=== PATIENT | female | born 1950 | race Caucasian/White ===

== ENCOUNTER → 2018-01-18 09:16 | Outpatient (CLI) | payer MEDICARE, SELFPAY ==
[2018-01-18 12:52] LABS: Absolute Lymphocyte Count 2.69 X10^3/ul (0.83-4.51); Absolute Neutrophil Count 3.2 X10^3/uL (2.0-7.7); Basophil# 0.03 X10^3/uL; Basophil% 0.4 % (0-1); Eosinophil# 0.37 X10^3/uL; Eosinophils% 5.3 % (0-5); Hematocrit 42.5 % (37-47); Lymphocyte # 2.69 X10^3/ul (4.0); Lymphocyte % 38.4 % (19-41); Mean Corp Hgb Conc 30.6 g/gl (32-36); Mean Corpuscular Hgb 27.6 pg (27.0-32.0); Mean Corpuscular Volume 90.2 fL (81-99); Mean Platelet Vol. 11.1 fl (6.2-12.0); Monocyte# 0.72 X10^3/uL; Monocyte% 10.3 % (0-10); Neutrophil # 3.19 X10^3/uL (2.7-7.7); Neutrophil % 45.5 % (47-70); Platelet Count 289 K/mm3 (150-450); RBC Distribution Width CV 15.1 % (11.6-14.6); RBC Distribution Width SD 49.9 fl (35.1-43.9); Red Blood Count 4.71 M/mm3 (4.2-5.4)
[2018-01-18 13:02] LABS: POSITIVE COUNT NO; POSITIVE DIFFERENTIAL NO; POSITIVE MORPHOLOGY NO
[2018-01-18 13:09] LABS: Hemoglobin A1c 5.8 % (4.2-6.3)
[2018-01-18 13:17] LABS: Vitamin D,25 Hydroxy 41.1 ng/mL (29.95-100.01)
[2018-01-18 13:26] LABS: ALB/GLOB Ratio 0.9 RATIO (0.9-2.4); AST(SGOT) 25 U/L (15-37); Alanine Aminotransfer ALT/SGPT 29 U/L (13-56); Albumin, Serum 3.6 g/dL (3.2-5.0); Alkaline Phosphatase 109 U/L (45-117); Anion Gap 8 (5-15); BUN 19 mg/dL (7-18); BUN/Creat Ratio 21.8 RATIO (10-20); Calcium,Total 8.9 mg/dL (8.5-10.1); Chloride 105 mmol/L (98-107); Cholesterol 141 mg/dL (200); Creatinine, Serum 0.87 mg/dL (0.55-1.02); EST Glomerular Filtration Rate 68 mL/min (>60); Est Glom Filt Rate - Afr Amer 83 mL/min (>60); Glucose 89 mg/dL (74-106); High Density Lipoprotein 51 mg/dL; Potassium 4.2 mmol/L (3.5-5.1); Protein, Total 7.6 g/dL (6.4-8.2); Sodium Level 140 mmol/L (136-145); Thyroid Stim Hormone (TSH) 1.55 uIU/mL (0.358-3.74); Triglycerides 83 mg/dL; Very Low Density Lipoprotein 17 mg/dL (5-40)
== END ==
PROVIDERS: PCP Internal Medicine Cardiovascular Disease; Visit Provider Family Medicine
DX: I48.91 Unspecified atrial fibrillation (principal); I10 Essential (primary) hypertension; R73.01 Impaired fasting glucose; M85.80 Other specified disorders of bone density and structure, unspecified site; R53.83 Other fatigue
CPT/HCPCS: 36415; 80053; 80061; 82306; 83036; 84443; 85025

== ENCOUNTER → 2018-01-23 09:53 | Outpatient (CLI) | payer MEDICARE, SELFPAY ==
--- NOTE | 2018-01-23 09:55 | HPBI_ITS ---
MAMMOGRAPHY - BILATERAL SCREENING REASON FOR EXAM: Female, 67 years old. Routine annual screening examination. PERTINENT HISTORY: Personal history of breast cancer. Prior right lumpectomy with radiation and chemotherapy. Prior bilateral breast reduction surgery and breast implants. Mother with breast cancer. Grandmother with breast cancer. TECHNIQUE: Digital bilateral breast johnathan (3D mammographic acquisition) in the CC and MLO projections. 2-D mediolateral oblique (MLO) and craniocaudad (CC) views of both breasts were obtained. CAD: Full Field Digital Mammography with Computer Added Detection was performed. COMPARISON: Comparison is made with prior study dated January 20, 2017 and January 20, 2016. FINDINGS: Breast Composition: The breasts are almost entirely fatty. There are no dominant masses or suspicious calcifications. Postsurgical changes are seen in the right breast. Bilateral breast implants are seen. No other significant abnormalities are identified. There has been no significant change since the prior study. HPBI/SCREENING MAMM (CAD), BILAT IMPRESSION: Stable bilateral screening mammogram. Yearly follow-up mammogram recommended. (A) ASSESSMENT CATEGORY: BIRADS Category 2: Benign. A letter regarding these results will be sent to the patient by the facility within 30 days. Approximately 10% of breast cancers are not detected by mammography. A normal mammogram should not delay biopsy of a clinically suspicious abnormality. [id number] Electronically Signed: Jordan Adame MD at 11:19 EDT Tel [phone], Service support ,
== END ==
PROVIDERS: PCP Family Medicine; Visit Provider Nurse Practitioner
DX: Z12.31 Encounter for screening mammogram for malignant neoplasm of breast (principal); C50.911 Malignant neoplasm of unspecified site of right female breast
CPT/HCPCS: 77063; 77067

== ENCOUNTER → 2018-03-23 11:00 | Outpatient (CLI) | payer MEDICARE, SELFPAY ==
--- NOTE | 2018-03-23 11:06 | ECHOD_ITS ---
Reason For Study: Arrhythmia Procedure This was a 2D Doppler, Color Flow transthoracic echocardiogram. Exam performed in department. Left Ventricle Normal LV size. Left ventricular systolic function is normal. The estimated ejection fraction is 60 %. Transmitral diastolic flow velocities suggest mild (stage 1) diastolic dysfunction (reversed pattern). No regional wall motion abnormalities noted. Right Ventricle Normal RV size. Normal systolic function. Atria Normal left atrium. Normal right atrium. Mitral Valve Bileaflet diffuse mitral valve thickening. Mild (1+) eccentric mitral valve insufficiency. Tricuspid Valve Normal tricuspid valve. Mild (1+) tricuspid valve insufficiency. Pulmonary artery systolic pressure is 25 mmHg. Aortic Valve Normal aortic valve. Trisinus/trileaflet aortic valve. Pulmonic Valve Normal pulmonic valve. Great Vessels Normal aortic root. The pulmonary artery is normal size. Normal inferior vena cava. Pericardium/Pleural No pericardial effusion. MMode/2D Measurements & Calculations LVIDd: 4.4 cm IVSd: 0.94 cm Ao root diam: 3.0 cm LVIDs: 2.7 cm LVPWd: 1.1 cm LA dimension: 3.4 cm FS: 39.1 % LAV(MOD-bp): 55.9 ml LA A4 area: 18.9 cm2 RA A4 area: 13.5 cm2 LAV(MOD-bp) Indexed: 28.3 ml/m2 LAV(MOD-sp2): 53.7 ml LAV(MOD-sp4): 54.1 ml Doppler Measurements & Calculations MV E max karsten: 68.0 cm/sec Lat Peak E' Karsten: 8.0 cm/sec Med Peak E' Karsten: 5.2 cm/sec MV A max karsten: 70.7 cm/sec E/E' lat: 8.6 E/E' med: 13.0 MV E/A: 0.96 Ao V2 max: 106.2 cm/sec LV V1 max: 90.6 cm/sec PA V2 max: 89.7 cm/sec Ao max P.5 mmHg LV V1 max P.3 mmHg TR max karsten: 225.2 cm/sec TR max P.3 mmHg Interpretation Summary Normal LV size. Left ventricular systolic function is normal. The estimated ejection fraction is 60 %. Transmitral diastolic flow velocities suggest mild (stage 1) diastolic dysfunction (reversed pattern). Mild (1+) eccentric mitral valve insufficiency. Mild (1+) tricuspid valve insufficiency. Ordering Physician: Adarsh Man Referring Physician: Clive Shepherd Performed By: Rhiannon Levi RDCS
== END ==
PROVIDERS: Family Provider Family Medicine; PCP Family Medicine; Visit Provider Internal Medicine Cardiovascular Disease
DX: I48.0 Paroxysmal atrial fibrillation (principal)
CPT/HCPCS: 93306

== ENCOUNTER → 2018-07-07 10:32 | Outpatient (CLI) | payer MEDICARE, SELFPAY ==
[2018-07-07 12:18] LABS: D-Dimer Quantitative (DVT/PE) 0.57 FEU/ug/m (0.27-0.49)
== END ==
PROVIDERS: Family Provider Family Medicine; PCP Family Medicine; Visit Provider Family Medicine
DX: R06.09 Other forms of dyspnea (principal)
CPT/HCPCS: 36415; 71046; 85379

== ENCOUNTER → 2018-07-11 09:49 | Outpatient (CLI) | payer MEDICARE, SELFPAY ==
[2018-07-11 10:26] LABS: CREATININE FINGERSTICK < 0.6 mg/dL (0.55-1.02); EGFR FINGERSTICK > 60.0000 mL/min (>60)
== END ==
PROVIDERS: Family Provider Family Medicine; PCP Family Medicine; Visit Provider Family Medicine
DX: R06.00 Dyspnea, unspecified (principal); Z85.3 Personal history of malignant neoplasm of breast; Z90.10 Acquired absence of unspecified breast and nipple
CPT/HCPCS: 71275; Q9967

== ENCOUNTER → 2018-07-26 07:41 | Outpatient (CLI) | payer MEDICARE, SELFPAY ==
--- NOTE | 2018-07-26 15:28 | PFTCOMP ---
COMPLETE PULMONARY FUNCTION TEST INTERPRETATION Brief HPI: Patient is a 68 year old female, currently under the care of Dr. Shepherd, who presents to [facility] for complete pulmonary function tests secondary to diagnosis of dyspnea. Respiratory therapist reports good effort and reproducible results. Interpretation: Forced expiration spirometry shows no large airways obstructive ventilatory defect with an FEV1 of 79% predicted. There is no significant bronchodilator response by strict ATS criteria. Spirograms are of good quality and plateau slowly, indicating slowly emptying areas of the lungs. The respiratory flow volume loop shows decreased expiratory flow rates at high lung volumes consistent with small airways obstruction. Lung volumes by body plethysmography show a total lung capacity at the lower limit of normal at 4.01 L, 83% predicted. All other lung volumes are within normal limits. Diffusion capacity by carbon monoxide is decreased at 52% predicted. The airway resistance is normal. No previous pulmonary function tests were available for review. Impression: Lung volumes at the lower limit of normal with significant reduction in DLCO consistent with a possible pulmonary vascular disorder.
== END ==
PROVIDERS: Family Provider Family Medicine; PCP Family Medicine; Visit Provider Family Medicine
DX: R06.09 Other forms of dyspnea (principal)
CPT/HCPCS: 94060; 94726; 94729

== ENCOUNTER → 2018-08-14 12:32 | Outpatient (CLI) | payer MEDICARE, SELFPAY ==
[2018-08-14 12:55] VITALS: PULSE 100; PULSE 102; PULSE 103; PULSE 104; PULSE 74; PULSE 79; O2SAT 94; O2SAT 95; O2SAT 96; O2SAT 97; O2SAT 98
--- NOTE | 2018-08-15 11:26 | PCM.PSN.6M ---
PSN 6 Minute Walk Test - 6 Minute Walk Test 6 Minute Walk Test: 6 Minute Walk Test PSN:6-Minute Walk Test Start: 08/14/18 12:55 Freq: Status: Active Protocol: RESP.6MINW Document 08/14/18 12:55 KENDALL (Rec: 08/14/18 12:58 KENDALL [id number]) 6 Minute Walk Test Date Performed 08/14/18 Time Performed 12:30 Height 5 ft 4 in Weight: 202 lb Weight in Pounds 202.[address]: Jerry Ponce Assistive device used: None Pre-test Oxygen Delivery Method Room Air Pulse Ox (%) 97 Pulse Rate (60-100 beats/min) 74 Dyspnea Andrea Scale (0-10) 0 Exertion Andrea Scale (6-20) 6 1st minute Oxygen Delivery Method Room Air Pulse Ox (%) 94 Pulse Rate (60-100 beats/min) 102 H 2nd minute Oxygen Delivery Method Room Air Pulse Ox (%) 94 Pulse Rate (60-100 beats/min) 102 H 3rd minute Oxygen Delivery Method Room Air Pulse Ox (%) 94 Pulse Rate (60-100 beats/min) 100 4th minute Oxygen Delivery Method Room Air Pulse Ox (%) 96 Pulse Rate (60-100 beats/min) 102 H 5th minute Oxygen Delivery Method Room Air Pulse Ox (%) 95 Pulse Rate (60-100 beats/min) 103 H 6th minute Oxygen Delivery Method Room Air Pulse Ox (%) 95 Pulse Rate (60-100 beats/min) 104 H Dyspnea Andrea Scale (0-10) 4 Exertion Andrea Scale (6-20) 14 Post-test Oxygen Delivery Method Room Air Pulse Ox (%) 98 Pulse Rate (60-100 beats/min) 79 Full Laps Walked 18 Partial Lap, Number of Tiles Walked 21 Total Distance Walked (ft) 1083 - Interpretation Interpretation: The patient ambulated 1083 feet over the course of 6 minutes beginning on room air without assistive devices or breaks. Pretesting oxygen saturation was noted to be 97% on room air. With ambulation, the gray oxygen saturation was 94%. There was no significant exertional oxygen desaturation noted. - Recommendations Recommendations: There is no indication for the use of supplemental oxygen at this time.
== END ==
PROVIDERS: Family Provider Family Medicine; PCP Family Medicine; Referring Provider Internal Medicine Critical Care Medicine; Visit Provider Internal Medicine Critical Care Medicine
DX: R06.09 Other forms of dyspnea (principal)
CPT/HCPCS: 94618

== ENCOUNTER → 2018-08-31 11:10 | Outpatient (CLI) | payer MEDICARE, SELFPAY ==
[2018-08-31 12:03] LABS: BNP,B-Type NATRIURETIC PEPTIDE 100.7 pg/mL (0-100)
== END ==
PROVIDERS: Family Provider Family Medicine; PCP Family Medicine; Referring Provider Nurse Practitioner Family; Visit Provider Nurse Practitioner Family
DX: R06.09 Other forms of dyspnea (principal)
CPT/HCPCS: 36415; 83880

== ENCOUNTER → 2019-01-17 12:54 | Outpatient (CLI) | payer MEDICARE, SELFPAY ==
[2019-01-16 15:48] VITALS: BMI 34.3
== END ==
PROVIDERS: Family Provider Family Medicine; PCP Family Medicine; Referring Provider Internal Medicine Cardiovascular Disease; Visit Provider Internal Medicine Cardiovascular Disease
DX: R00.2 Palpitations (principal)
CPT/HCPCS: 93225; 93226

== ENCOUNTER → 2019-01-24 10:10 | Outpatient (CLI) | payer MEDICARE, SELFPAY ==
[2019-01-16 15:48] VITALS: BMI 34.3
--- NOTE | 2019-01-24 10:12 | BI_ITS ---
MAMMOGRAPHY - BILATERAL SCREENING 3-D MARGAUX SYNTHESIS REASON FOR EXAM: Female, 68 years old. Bilateral Screening 3-D tomosynthesis PERTINENT HISTORY: Personal history of breast cancer in mother at age 59. History of right lumpectomy in 2008 with radiation and chemotherapy. Bilateral breast reduction in 2007 with bilateral implants placed in 2009. TECHNIQUE: 2-D mammograms and 3-D Margaux synthesis of the breast (s) were performed. CAD was performed. COMPARISON: January 23, 2018, January 20, 2017 FINDINGS: The breast composition is almost entirely fat. There are stable subpectoral implants. There is stable distortion of breast tissue with fat necrosis. Scattered benign calcifications are stable. No dense spiculated masses or suspicious microcalcifications are identified. No architectural distortion is identified. There is no skin thickening or retraction. There has been no significant change since the prior study. BI/SCREENING MAMM (CAD), BILAT IMPRESSION: No mammographic signs of malignancy. Routine yearly mammograms recommended. ASSESSMENT CATEGORY: BIRADS Category 2: Benign. A letter regarding these results will be sent to the patient by the facility within 30 days. FOLLOW UP RECOMMENDATION: Yearly follow up mammogram recommended. (A) Approximately 10% of breast cancers are not detected by mammography. A normal mammogram should not delay biopsy of a clinically suspicious abnormality. Electronically Signed: Dimitry Smalls MD at 13:02 EDT , Service support ,
[2019-01-24 12:04] LABS: Anion Gap 7 (5-15); BUN 13 mg/dL (7-18); Calcium,Total 9.1 mg/dL (8.5-10.1); Chloride 106 mmol/L (98-107); Creatinine, Serum 1.08 mg/dL (0.55-1.02); EST Glomerular Filtration Rate 53 mL/min (>60); Est Glom Filt Rate - Afr Amer 64 mL/min (>60); Glucose 117 mg/dL (74-106); Potassium 3.4 mmol/L (3.5-5.1); Sodium Level 142 mmol/L (136-145)
== END ==
PROVIDERS: Nurse Practitioner Family; Family Provider Family Medicine; PCP Family Medicine; Referring Provider Family Medicine; Visit Provider Family Medicine
DX: Z12.31 Encounter for screening mammogram for malignant neoplasm of breast (principal); I11.0 Hypertensive heart disease with heart failure; I50.9 Heart failure, unspecified; R00.2 Palpitations
CPT/HCPCS: 36415; 77063; 77067; 80048

== ENCOUNTER → 2019-03-23 | Outpatient (CLI) | payer MEDICARE, SELFPAY ==
[2019-01-25 15:00] VITALS: BMI 34.3
--- NOTE | 2019-03-23 10:36 | ECHOD_ITS ---
Reason For Study: Afib, Aflutter Procedure This was a 2D Doppler, Color Flow transthoracic echocardiogram. Strain analysis not performed due to Afib. The study was technically difficult. Exam performed in department. Left Ventricle Normal LV size. Left ventricular systolic function is normal. The estimated ejection fraction is 60 %. Stage 1 diastolic dysfunction. No regional wall motion abnormalities noted. Right Ventricle Normal RV size. Normal systolic function. Atria Normal left atrium. Normal right atrium. Mitral Valve Normal mitral valve. Mild (1+) eccentric mitral valve insufficiency. Tricuspid Valve Normal tricuspid valve. Mild (1+) tricuspid valve insufficiency. Pulmonary artery systolic pressure is 34 mmHg. Aortic Valve Normal aortic valve. Trisinus/trileaflet aortic valve. Pulmonic Valve Normal pulmonic valve. Great Vessels Normal aortic root. The pulmonary artery is normal size. Normal inferior vena cava. Pericardium/Pleural No pericardial effusion. MMode/2D Measurements & Calculations LVIDd: 4.1 cm IVSd: 1.1 cm Ao root diam: 3.0 cm LVIDs: 2.6 cm LVPWd: 0.99 cm RVDd: 2.9 cm FS: 36.2 % LAV(MOD-bp): 27.0 ml LA A4 area: 13.4 cm2 LA dimension(2D): 4.4 cm LAV(MOD-bp) Indexed: 13.8 ml/m2 LAV(MOD-sp2): 23.3 ml LAV(MOD-sp4): 30.5 ml RA A4 area: 9.4 cm2 Doppler Measurements & Calculations MV E max violeta: 91.2 cm/sec Ao V2 max: 100.3 cm/sec LV V1 max: 81.4 cm/sec Ao max P.0 mmHg LV V1 max P.7 mmHg Ao V2 mean: 75.0 cm/sec Ao mean P.4 mmHg Ao V2 VTI: 22.2 cm PA V2 max: 71.5 cm/sec TR max violeta: 269.7 cm/sec TR max P.1 mmHg Interpretation Summary Normal LV size. Left ventricular systolic function is normal. The estimated ejection fraction is 60 %. Stage 1 diastolic dysfunction. Mild (1+) tricuspid valve insufficiency. Compared to prior study, there is no significant change. Ordering Physician: Adarsh Man Referring Physician: Clive Shepherd Performed By: Maryam Trimble, CORWIN, RVT
== END | disposition home or self-care (01) ==
LOC: CVS 10:35
PROVIDERS: Family Provider Family Medicine; PCP Family Medicine; Referring Provider Internal Medicine Cardiovascular Disease; Visit Provider Internal Medicine Cardiovascular Disease
DX: R06.09 Other forms of dyspnea (principal); R53.83 Other fatigue; R00.2 Palpitations; E78.2 Mixed hyperlipidemia; I10 Essential (primary) hypertension; G47.33 Obstructive sleep apnea (adult) (pediatric); I34.0 Nonrheumatic mitral (valve) insufficiency; I36.1 Nonrheumatic tricuspid (valve) insufficiency
CPT/HCPCS: 93306

== ENCOUNTER → 2019-08-08 09:43 | Outpatient (CLI) | payer MEDICARE, SELFPAY ==
[2019-01-25 15:00] VITALS: BMI 34.3
--- NOTE | 2019-08-08 09:47 | ECHOD_ITS ---
Reason For Study: Persistant Afib Procedure This was a 2D Doppler, Color Flow transthoracic echocardiogram. Technically difficult exam due to breast implants, patient had a hard time tolerating probe pressure to work around implants. Exam performed in department. Left Ventricle Normal LV size. Left ventricular systolic function is normal. The estimated ejection fraction is 55 %. Stage 1 diastolic dysfunction. No regional wall motion abnormalities noted. Right Ventricle Normal RV size. Normal systolic function. Atria Normal left atrium. Normal right atrium. Mitral Valve Normal mitral valve. Mild-Moderate (1-2+) eccentric mitral valve insufficiency. Tricuspid Valve Normal tricuspid valve. Mild (1+) tricuspid valve insufficiency. Aortic Valve Normal aortic valve. Pulmonic Valve Normal pulmonic valve. Great Vessels Normal aortic root. The pulmonary artery is normal size. Normal inferior vena cava. Pericardium/Pleural No pericardial effusion. MMode/2D Measurements & Calculations LVIDd: 3.8 cm IVSd: 1.0 cm Ao root diam: 3.1 cm LVIDs: 2.2 cm LVPWd: 1.2 cm LA dimension: 3.0 cm FS: 42.9 % LAV(MOD-bp): 53.5 ml LA A4 area: 20.0 cm2 RA A4 area: 10.4 cm2 LAV(MOD-bp) Indexed: 27.7 ml/m2 LAV(MOD-sp2): 50.1 ml LAV(MOD-sp4): 56.4 ml Time Measurements MV dec time: 0.23 sec Doppler Measurements & Calculations MV E max karsten: 69.0 cm/sec Lat Peak E' Karsten: 8.9 cm/sec Med Peak E' Karsten: 6.5 cm/sec MV A max karsten: 92.0 cm/sec E/E' lat: 7.7 E/E' med: 10.6 MV E/A: 0.75 MV V2 max: 90.6 cm/sec MV P1/2t max karsten: 79.4 cm/sec Ao V2 max: 101.2 cm/sec MV max P.3 mmHg MV P1/2t: 83.3 msec Ao max P.1 mmHg MV V2 mean: 51.5 cm/sec MV dec slope: 279.2 cm/sec2 MV mean P.3 mmHg MVA(P1/2t): 2.6 cm2 MV V2 VTI: 20.6 cm LV V1 max: 77.4 cm/sec MR max karsten: 537.5 cm/sec PA V2 max: 92.5 cm/sec LV V1 max P.4 mmHg MR max P.6 mmHg MR mean karsten: 405.1 cm/sec MR mean P.5 mmHg MR VTI: 191.3 cm TR max karsten: 244.6 cm/sec TR max P.9 mmHg Interpretation Summary Normal LV size. Left ventricular systolic function is normal. The estimated ejection fraction is 55 %. Stage 1 diastolic dysfunction. Mild-Moderate (1-2+) eccentric mitral valve insufficiency. Mild (1+) tricuspid valve insufficiency. Ordering Physician: Mando Reid Referring Physician: Clive Shepherd Performed By: Adal Dejesus RCS
== END ==
PROVIDERS: Family Provider Family Medicine; PCP Family Medicine; Referring Provider Internal Medicine Cardiovascular Disease; Visit Provider Internal Medicine Cardiovascular Disease
DX: I48.19 Other persistent atrial fibrillation (principal); R06.02 Shortness of breath
CPT/HCPCS: 93225; 93226; 93306

== ENCOUNTER → 2019-09-06 11:24 | Outpatient (CLI) | payer MEDICARE, SELFPAY ==
[2019-01-25 15:00] VITALS: BMI 34.3
[2019-09-06 15:37] LABS: Absolute Lymphocyte Count 2.54 X10^3/uL (0.83-4.51); Absolute Neutrophil Count 5.3 X10^3/uL (2.0-7.7); Basophil# 0.05 X10^3/uL; Basophil% 0.6 % (0-1); Eosinophil# 0.23 X10^3/uL; Eosinophils% 2.6 % (0-5); Hematocrit 42.7 % (37-47); Lymphocyte # 2.54 X10^3/ul (4.0); Lymphocyte % 28.4 % (19-41); Mean Corp Hgb Conc 30.4 g/dL (32-36); Mean Corpuscular Hgb 27.3 pg (27.0-32.0); Mean Corpuscular Volume 89.5 fL (81-99); Mean Platelet Vol. 10.9 fl (6.2-12.0); Monocyte# 0.85 X10^3/uL; Monocyte% 9.5 % (0-10); NRBC Flagged by Analyzer 0 % (0-5); Neutrophil # 5.25 X10^3/uL (2.7-7.7); Neutrophil % 58.6 % (47-70); Platelet Count 354 K/mm3 (150-450); RBC Distribution Width CV 14.6 % (11.6-14.6); RBC Distribution Width SD 48.3 fl (35.1-43.9); Red Blood Count 4.77 M/mm3 (4.2-5.4)
[2019-09-06 15:55] LABS: ALB/GLOB Ratio 0.8 RATIO (0.9-2.4); AST(SGOT) 22 U/L (15-37); Alanine Aminotransfer ALT/SGPT 35 U/L (13-56); Albumin, Serum 3.5 g/dL (3.2-5.0); Alkaline Phosphatase 106 U/L (45-117); Anion Gap 9 (5-15); BUN 14 mg/dL (7-18); BUN/Creat Ratio 15.3 RATIO (10-20); Calcium,Total 9.2 mg/dL (8.5-10.1); Chloride 103 mmol/L (98-107); Cholesterol 137 mg/dL (200); Creatinine, Serum 0.91 mg/dL (0.55-1.02); EST Glomerular Filtration Rate 64 mL/min (>60); Est Glom Filt Rate - Afr Amer 78 mL/min (>60); Globulin 4.2 g/dL (2.2-4.2); Glucose 91 mg/dL (74-106); High Density Lipoprotein 47 mg/dL; Protein, Total 7.7 g/dL (6.4-8.2); Sodium Level 140 mmol/L (136-145); Triglycerides 151 mg/dL; Very Low Density Lipoprotein 30 mg/dL (5-40)
[2019-09-06 15:59] LABS: Hemoglobin A1c 5.7 % (4.2-6.3)
[2019-09-06 16:02] LABS: Vitamin D,25 Hydroxy 52.5 ng/mL (29.95-100.01)
== END ==
PROVIDERS: Family Provider Family Medicine; PCP Family Medicine; Visit Provider Family Medicine
DX: I10 Essential (primary) hypertension (principal); R73.01 Impaired fasting glucose; M81.0 Age-related osteoporosis without current pathological fracture; Z79.01 Long term (current) use of anticoagulants; Z51.81 Encounter for therapeutic drug level monitoring
CPT/HCPCS: 36415; 80053; 80061; 82306; 83036; 85025

== ENCOUNTER → 2019-09-11 13:29 | Outpatient (CLI) | payer MEDICARE, SELFPAY ==
[2019-01-25 15:00] VITALS: BMI 34.3
--- NOTE | 2019-09-11 13:36 | BD_ITS ---
STUDY: DUAL ENERGY X-RAY ABSORPTIOMETRY / DXA REASON FOR EXAM: Female, 69 years old. The patient is postmenopausal. Loss of height. TECHNIQUE: Bone Mineral Density (BMD) measurements of lumbar spine and bilateral hips were obtained. COMPARISON: Comparison is made with prior examination dated June 06, 2014. FINDINGS: Lumbar Spine (L1-L4): g/cm2 (0.983) / T-score (-1.5) / Z-score (0.2) Findings are suggestive of osteopenia with a moderate fracture risk. Increased kyphosis. Left Femur Total: g/cm2 (0.906) / T-score (-0.8) / Z-score (0.7) Left Femoral Neck: g/cm2 (0.819) / T-score (-1.6) / Z-score (0.2) Right Femur Total: g/cm2 (0.842) / T-score (-1.3) / Z-score (0.2) Right Femoral Neck: g/cm2 (0.759) / T-score (-2.0) / Z-score (-0.3) The T-Scores on the most recent prior examination were: Lumbar Spine (L1-L4): There has been improvement of bone density since the previous examination. Left Femur Total: which represents a worsening of 4.5%. Right Femur Total: which represents a worsening of 7.4%. BD/Dexa Bone Density Study IMPRESSION: The patient is considered osteopenic as outlined below according to World [place] Organization (WHO) criteria with a moderate fracture risk. There has been worsening of bone density since the previous examination. Reference Information: The T-score is the number of standard deviations above or below the standard which is normal for young adults at their peak bone mineral density. The World Health Organization (WHO) interprets the T-scores as follows: Above -1 Normal bone density Between -1 and -2.5 Osteopenia Equal to / or below -2.5 Osteoporosis As a practical clinical guideline, osteopenia may be graded as follows: Mild -1 through -1.5 Moderate -1.6 through -2.0 Severe -2.1 through -2.4 The Z-score is the number of standard deviations above or below age-matched controls. A Z-score of less than -1.5 would be considered abnormal. References: 1. NIH Osteoporosis and Related Bone Diseases http://www.osteo.org 2. International Society for Clinical Densitometry http://www.iscd.org 3. National Osteoporosis Foundation http://www.nof.org Electronically Signed: Jordan Adame, at 9:32 EST , Service support ,
== END ==
PROVIDERS: Family Provider Family Medicine; PCP Family Medicine; Referring Provider Family Medicine; Visit Provider Family Medicine
DX: Z78.0 Asymptomatic menopausal state (principal); M85.80 Other specified disorders of bone density and structure, unspecified site
CPT/HCPCS: 77080

== ENCOUNTER → 2020-01-30 10:26 | Outpatient (CLI) | payer MEDICARE, SELFPAY ==
[2019-10-16 10:54] VITALS: BMI 33.5
--- NOTE | 2020-01-30 10:38 | BI_ITS ---
MAMMOGRAPHY - BILATERAL SCREENING REASON FOR EXAM: Female, 69 years old. Routine annual screening examination. PERTINENT HISTORY: Personal history of breast cancer. Prior right lumpectomy with radiation and chemotherapy. Bilateral breast implants. Mother with breast cancer. Grandmother with breast cancer. TECHNIQUE: Digital bilateral breast margaux (3D mammographic acquisition) in the CC and MLO projections. 2-D mediolateral oblique (MLO) and craniocaudad (CC) views of both breasts were obtained. CAD: Full Field Digital Mammography with Computer Added Detection was performed. COMPARISON: Comparison is made with prior mammogram dated January 24, 2019 and January 23, 2018. FINDINGS: Breast Composition: The breasts are almost entirely fatty. There are no dominant masses or suspicious calcifications. Stable appearance of the subpectoral breast implants. No other significant abnormalities are identified. There has been no significant change since the prior study. BI/SCREEN MAMM (CAD) W/MARGAUX BILAT IMPRESSION: Stable bilateral screening mammogram. Yearly follow-up mammogram recommended. (A) ASSESSMENT CATEGORY: BIRADS Category 2: Benign. A letter regarding these results will be sent to the patient by the facility within 30 days. Approximately 10% of breast cancers are not detected by mammography. A normal mammogram should not delay biopsy of a clinically suspicious abnormality. [id number] Electronically Signed: Jordan Adame, at 11:19 EDT , Service support ,
== END ==
PROVIDERS: PCP Family Medicine; Referring Provider Family Medicine; Visit Provider Family Medicine
DX: Z12.31 Encounter for screening mammogram for malignant neoplasm of breast (principal)
CPT/HCPCS: 77063; 77067

== ENCOUNTER 2020-05-15 08:11 | Outpatient (RCR) | payer MEDICARE, SELFPAY ==
[2019-10-16 10:54] VITALS: BMI 33.5
--- NOTE | 2020-05-15 10:09 | HP.OTEVAL_ITS ---
Patient's Visit Information ANDRADE SANTOS is a 69 year old F, referred to Occupational Therapy by Dr. Clive Shepherd DO, with a diagnosis of right UE. Date of Evaluation: 05/15/20 Occupational Therapist: Taylor Sullivan, OTR/Brook, CHT - Subjective This 69 year old female was seen for OT eval with dx of right arm lymphedema s/p breast cancer tx 12 years ago. pt had lumpectomy 12 lymph nodes removed with 12 + followed with radiation for about three months. pt states she noticed pain in her lower right forearm and swelling- feels this is due to her past medical hx. 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 but has not been in pool due to covid- will start with open pool times to return - Pain right UE 3 Pain Intensity Range: 1, 6 - Lymphedema (Circumferential Measure) MCP: right 18cm left 18cm Wrist: right 15cm left 15cm Lower forearm: right 17.5cm left 19cm Largest forearm: right 24cm left 23cm Elbow: right 25cm left 24.5cm Largest humerus: right 39cm left 38.5cm Axcillary: righ 40cm left 40cm - Goals Demonstrate adequate knowledge of self-massage by 2nd week: Yes Demonstrate adequate knowledge skin care/prec by 2nd week: Yes Demonstrate adequate knowledge therapeutic exercises by d/c: Yes Select approp compression garment w/donning/care/wear by d/c: Yes Voice need to replace compression garment every 4-6mo by dc: Yes - Rehabilitation General Assessment: pt demo with stage I lymphedema and would benefit from ed. on home mtg of lymphedema. Today therapist ed. pt on use of compression sleeve 20-30 mmHg along with skin care and precautions, use of self manual lymph drainage and exercises to stimulate circulation and for pt to mtg her lymphedema. pt demo underdanding and agree to POC. Rehabilitation Potential: Good - Anticipated Interventions Education re Diagnosis, Manual Lymph Drainage, Education re Life-long lymphedema Management, Education re Skin Care and Precautions, Education re Self Massage Techniques, Education re Correct Donning Tech,Care&Wearing Sched Comp Garments, Home Program - Visit Plan TEXT: Thank you for the opportunity to evaluate your patient. For Medicare and Medicare HMO plans, please review the plan of care and approve it. It will need to be FAXED BACK to us at [phone] for Medicare purposes. Please let me know if there are questions or concerns regarding this plan of care. Physician Signature: Date:
--- NOTE | 2020-10-13 10:15 | HP.OT.NRP ---
ANDRADE SANTOS was seen in my office for initial evaluation on 05/15/20. The following Plan of Care was established for this patient: Anticipated Interventions: Education re Diagnosis, Manual Lymph Drainage, Education re Life-long lymphedema Management, Education re Skin Care and Precautions, Education re Self Massage Techniques, Education re Correct Donning Tech,Care&Wearing Sched Comp Garments, Home Program This patient was last seen in our office 05/15/20. Pertinent comments regarding their Occupational therapy will appear below: pt seen for eval only- no further apts were scheduled and due to time lapse in services pt d/c for OT at this time. At this point I will be discontinuing this patient from occupational therapy. I would be happy to see this patient again in the future if found appropriate by the physician. Thank you! Taylor Sullivan, OTR/L, CHT
== END 2020-05-15 19:00 | disposition home or self-care (01) ==
LOC: OT 08:11
PROVIDERS: PCP Family Medicine; Referring Provider Family Medicine; Visit Provider Family Medicine
DX: I89.0 Lymphedema, not elsewhere classified (principal)
CPT/HCPCS: 97166; 97530

== ENCOUNTER → 2020-06-13 09:49 | Outpatient (CLI) | payer MEDICARE, SELFPAY ==
[2019-10-16 10:54] VITALS: BMI 33.5
[2020-06-13 12:27] LABS: Absolute Lymphocyte Count 2.52 X10^3/uL (0.83-4.51); Absolute Neutrophil Count 3.9 X10^3/uL (2.0-7.7); Basophil# 0.06 X10^3/uL; Basophil% 0.8 % (0-1); Eosinophil# 0.25 X10^3/uL; Eosinophils% 3.3 % (0-5); Hematocrit 39.8 % (37-47); Hemoglobin 12.3 g/dL (12.0-15.0); Lymphocyte # 2.52 X10^3/ul (4.0); Lymphocyte % 33.7 % (19-41); Mean Corp Hgb Conc 30.9 g/dL (32-36); Mean Corpuscular Hgb 27.9 pg (27.0-32.0); Mean Corpuscular Volume 90.2 fL (81-99); Mean Platelet Vol. 11.4 fl (6.2-12.0); Monocyte# 0.73 X10^3/uL; Monocyte% 9.8 % (0-10); NRBC Flagged by Analyzer 0 % (0-5); Neutrophil # 3.89 X10^3/uL (2.7-7.7); Neutrophil % 52.1 % (47-70); Platelet Count 311 K/mm3 (150-450); RBC Distribution Width CV 14.6 % (11.6-14.6); RBC Distribution Width SD 48.8 fl (35.1-43.9); Red Blood Count 4.41 M/mm3 (4.2-5.4); White Blood Count 7.5 K/mm3 (4.4-11.0)
[2020-06-13 12:42] LABS: Anion Gap 4 (5-15); BUN 14 mg/dL (7-18); BUN/Creat Ratio 14.7 RATIO (10-20); Calcium,Total 9.3 mg/dL (8.5-10.1); Chloride 105 mmol/L (98-107); Creatinine, Serum 0.95 mg/dL (0.55-1.02); EST Glomerular Filtration Rate 62 mL/min (>60); Est Glom Filt Rate - Afr Amer 74 mL/min (>60); Glucose 93 mg/dL (74-106); Sodium Level 140 mmol/L (136-145)
== END ==
PROVIDERS: PCP Family Medicine; Visit Provider Family Medicine
DX: Z01.818 Encounter for other preprocedural examination (principal)
CPT/HCPCS: 36415; 80048; 85025

== ENCOUNTER 2020-11-25 03:49 | Inpatient (IN) | payer MEDICARE, SELFPAY ==
[2019-10-16 10:54] VITALS: BMI 33.5
[2020-11-25] VITALS (23 sets, daily range): BP systolic 83–148; BP diastolic 35–80; PULSE 78–103; RESP 16–25; TEMP 36.3–37.2; O2SAT 89–100; BMI 32.8; BMI 31.8; BMI 31.9
--- NOTE | 2020-11-25 03:54 | EKG12_ITS ---
Test Reason : RHYTHMN CHANGE Blood Pressure : / mmHG Vent. Rate : 083 BPM Atrial Rate : 083 BPM P-R Int : 180 ms QRS Dur : 088 ms QT Int : 382 ms P-R-T Axes : 066 022 049 degrees QTc Int : 448 ms Normal sinus rhythm Acute pericarditis Abnormal ECG Confirmed by MURPHY JACINTO, RYAN ([id number]), desk editor KATI ZEPEDA ([id number]) on 11/27/2020 2:30:17 PM Referred By: CARIDAD Confirmed By:RYAN ARRINGTON MD
--- NOTE | 2020-11-25 03:54 | RAD_ITS ---
HISTORY: CHEST TIGHTNESS WOKE HER UP @2AM. HAS HAD BRONCHITIS FOR APPROX 1 MONTH.BEST INSPIRATION PER PATIENT ADDITIONAL HISTORY: None provided. EXAMINATION/TECHNIQUE: XR Chest 1 View AP/PA Number of images including paperwork: 2 COMPARISON: 07/07/2018 FINDINGS: LUNGS AND PLEURA: No consolidation, mass or pleural effusion. Mild right hemidiaphragm elevation. CARDIAC SILHOUETTE: Unremarkable. MEDIASTINUM AND NÉSTOR: Unremarkable. UPPER ABDOMEN: Unremarkable. SKELETON AND SOFT TISSUES: No acute skeletal findings. Degenerative changes. OTHER DEVICES AND HARDWARE: Gastric band. RAD/Chest 1 View (Portable) IMPRESSION: No acute cardiopulmonary abnormality. at 0444 Reported and signed by: Zenai Dawkins MD Electronically Signed: Zenia Dawkins MD at 4:44 EST Tel , Service support ,
--- NOTE | 2020-11-25 03:54 | ED.VIS.GEN ---
History of Present Illness Chief Complaint: Chest Pain Informant: Patient Narrative: 70-year-old female presenting with chest pressure which she states is 9 of 10 on arrival. She states it woke her up at about 2 AM and she was diaphoretic. Patient states that other than cardiac ablation for A. fib she does not have any heart issues. She is anticoagulated on Eliquis. Patient has not had fever, chills, change in taste or smell. She states she just got over bronchitis and has been treated for this outpatient with antibiotics. She states she is quarantined and has no sick contacts. - Past Medical History (1) Mixed hyperlipidemia Status: Chronic (2) Essential (primary) hypertension Status: Chronic (3) OXANA (obstructive sleep apnea) Status: Chronic Past Medical History - Allergies and Home Meds Allergies/Adverse Reactions: Allergies No Known Allergies Allergy (Verified 11/25/20 04:01) Primary Care Physician: Clive Shepherd DO [Primary Care Provider] - Prior records reviewed: Yes Past Medical History: - - Reviewed in problem list Surgical History: noncontributory Lives: Spouse/ Significant Other Smoking Status: Never smoker Alcohol: None Drugs: None Review of Systems General: Denies: Chills, Fever, Malaise Eyes: Denies: Visual changes - bilaterally, Diplopia ENT: Denies: Rhinorrhea, Sore throat Cardiovascular: Reports: Chest pain, Heart racing Respiratory: Reports: Cough. Denies: Dyspnea Gastrointestinal: Denies: Abdominal pain, Nausea, Vomiting, Diarrhea Genitourinary: Denies: Dysuria, Hematuria Musculoskeletal: Denies: Myalgias, Arthralgias Skin: Denies: Rash, Abscess Neurological: Denies: Headache, Parasthesia, Numbness Psych: Denies: Depression, Anxiety Physical Exam Vital Signs/Narrative: Vital Signs Temp Pulse Resp BP Pulse Ox 11/25/20 03:50 97.7 F L 91 18 148/80 H 96 General: Well nourished, No Acute Distress Head: Normocephalic, Atraumatic Eyes: Perrl, EOMI ENT: Moist mucous membranes, No rhinorrhea Cardiovascular: Regular rate, Regular rhythm Respiratory: No distress, CTA bilaterally Abdomen: Nondistended Extremities: Nontender, No edema Skin: Normal color, No rash. Negative for: Cyanosis, Diaphoresis Neurological: Alert, Oriented x3 Psychological: Normal affect, Normal Mood Diagnostic/Tx/Re-eval Clinical Impression(s) from Imaging Studies Chest X-Ray 11/25/20 03:54 IMPRESSION: No acute cardiopulmonary abnormality. at 0444 Reported and signed by: Zenia Dawkins MD Electronically Signed: Zenia Dawkins MD at 4:44 EST Tel , Service support , Laboratory Data 11/25/20 11/25/20 03:58 03:58 WBC 15.8 H RBC 4.68 Hgb 12.4 Hct 39.5 MCV 84.4 MCH 26.5 L MCHC 31.4 L RDW Std Deviation 44.3 H RDW Coeff of Orestes 14.5 Plt Count 562 H MPV 10.1 Immature Gran % (Auto) 0.400 Neut % (Auto) 66.5 Lymph % (Auto) 21.4 [place] % (Auto) 7.9 Eos % (Auto) 3.2 Baso % (Auto) 0.6 Absolute Neuts (auto) 10.5 H Absolute Lymphs (auto) 3.38 Nucleated RBC % 0 Sodium 137 Potassium 3.3 L Chloride 100 Carbon Dioxide 30.0 Anion Gap 7 BUN 12 Creatinine 0.88 Estim Creat Clear Calc 47.80 Est GFR (MDRD) Af Amer 81 Est GFR (MDRD) Non-Af 67 BUN/Creatinine Ratio 13.6 Glucose 124 H Calcium 9.5 Troponin I < 0.015 - Rhythm Strip Rhythm Strip: Sinus Rhythm Rate: 90 - EKG Initial EKG Interpretation: Sinus Rhythm, No Acute Injury Pattern - Medical Decision Making 70-year-old female seen and evaluated on arrival for chest pressure which woke her up from sleep with some associated symptoms of diaphoresis. She states it is 9/10 when she 5 and has gone down to a 7. Her initial EKG is sinus rhythm without signs of ischemic change as interpreted by myself. Chest x-ray is interpreted by myself shows no acute cardiopulmonary process. Radiology does agree. CBC shows a leukocytosis of 15,000. I did asked the patient if she had been treated with steroids during her treatment of bronchitis and she was unsure. She states she just finished her antibiotics. Renal function and electrolytes are normal. Troponin is negative. Patient's heart score is 4 and she will need to be admitted for further evaluation. Patient did trigger Covid?19 alert. She will be tested with Covid?19 PCR prior to going to the medical floor. Patient is amenable to this plan. She is admitted in stable condition. Impression: 1. Chest pain 2. Leukocytosis ED Disposition - Plan for ED Patient: Referrals: Clive Shepherd DO [Primary Care Provider] -
[2020-11-25] MEDS: Aspirin 81 MG TAB.CHEW 324 MG PO ×2 (04:03→21:30)
[2020-11-25 04:06] LABS: Absolute Lymphocyte Count 3.38 X10^3/uL (0.83-4.51); Absolute Neutrophil Count 10.5 X10^3/uL (2.0-7.7); Basophil# 0.09 X10^3/uL; Basophil% 0.6 % (0-1); Eosinophils% 3.2 % (0-5); Hematocrit 39.5 % (37-47); Hemoglobin 12.4 g/dL (12.0-15.0); Lymphocyte # 3.38 X10^3/ul (4.0); Lymphocyte % 21.4 % (19-41); Mean Corp Hgb Conc 31.4 g/dL (32-36); Mean Corpuscular Hgb 26.5 pg (27.0-32.0); Mean Corpuscular Volume 84.4 fL (81-99); Mean Platelet Vol. 10.1 fl (6.2-12.0); Monocyte# 1.24 X10^3/uL; Monocyte% 7.9 % (0-10); NRBC Flagged by Analyzer 0 % (0-5); Neutrophil % 66.5 % (47-70); Platelet Count 562 K/mm3 (150-450); RBC Distribution Width CV 14.5 % (11.6-14.6); RBC Distribution Width SD 44.3 fl (35.1-43.9); Red Blood Count 4.68 M/mm3 (4.2-5.4); White Blood Count 15.8 K/mm3 (4.4-11.0)
[2020-11-25 04:22] LABS: Anion Gap 7 (5-15); BUN 12 mg/dL (7-18); BUN/Creat Ratio 13.6 RATIO (10-20); Calcium,Total 9.5 mg/dL (8.5-10.1); Chloride 100 mmol/L (98-107); Creatinine, Serum 0.88 mg/dL (0.55-1.02); EST Glomerular Filtration Rate 67 mL/min (>60); Est Glom Filt Rate - Afr Amer 81 mL/min (>60); Glucose 124 mg/dL (74-106); Potassium 3.3 mmol/L (3.5-5.1); Sodium Level 137 mmol/L (136-145)
[2020-11-25] MEDS: Nitroglycerin SL (ED/IMG/CATH) 0.4 MG TABLET SUBLINGUAL (04:53)
--- NOTE | 2020-11-25 05:50 | PCM.HP.STD ---
History of Present Illness Date of Admission: 11/25/20 Chief Complaint: chest pain The patient is a 70 year old female patient with a significant past medical history of atrial fibrillation status post ablation in 2019 presents the emergency room with acute chest pain. Onset of chest pain began at 2:00 this morning when she woke up in a diaphoretic state with 9/10 chest pain nonradiating. The character of the pain was unchanged after receiving nitroglycerin. Prior to this pain she has been treated with an antibiotic for bronchitis over the past month and she admits to having had mucus discharge after her antibiotic course but states that had mostly resolved. She denies any fevers or chills and/or shortness of breath. She states the pain is as if something were stuck in her esophagus ,however, she had not eaten anything recently. The patient also has a remote history of gastric banding procedure done in 2006 and breast cancer in 2007. Initial cardiac enzyme is negative and chest x-ray also is negative for acute pathology. She will be admitted for further cardiac work-up and a Covid PCR test will be ordered prior to her placement on the floor. Past Medical History Past Medical History (Chronic Problems): Chronic Problems (Last Reviewed 10/16/19 @ 11:[address] Ty Johnson MD) Fatigue (Chronic) Palpitations (Chronic) Dyspnea on exertion (Chronic) Mixed hyperlipidemia (Chronic) Essential (primary) hypertension (Chronic) OXANA (obstructive sleep apnea) (Chronic) Nonrheumatic mitral (valve) insufficiency (Chronic) Mild per ecoh 03/23/18 Nonrheumatic tricuspid (valve) insufficiency (Chronic) mild per echo 03/23/18 Obesity (Chronic) Paroxysmal atrial fibrillation (Chronic) Medical History: Medical History (Last Reviewed 10/16/19 @ 11:[address] Ty Johnson MD) Palpitations (Chronic) R00.2 Dyspnea on exertion (Chronic) R06.09 Mixed hyperlipidemia (Chronic) E78.2 Essential (primary) hypertension (Chronic) I10 OXANA (obstructive sleep apnea) (Chronic) G47.33 Breast cancer (Resolved) C50.919 Nonrheumatic mitral (valve) insufficiency (Chronic) I34.0 Mild per ecoh 03/23/18 Nonrheumatic tricuspid (valve) insufficiency (Chronic) I36.1 mild per echo 03/23/18 Obesity (Chronic) E66.9 Paroxysmal atrial fibrillation (Chronic) I48.0 Fatigue R53.83 GERD (gastroesophageal reflux disease) K21.9 History of UTI Z87.440 Impaired fasting blood sugar R73.01 Neuropathy G62.9 Osteopenia M85.80 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 Vitamin deficiency E56.9 Chronic headache R51 Chronic rhinitis J31.0 Allergies No Known Allergies Allergy (Verified 11/25/20 04:01) Home Medications: Ambulatory Orders Medication Instructions Recorded atorvastatin 10 mg tablet 10 mg PO QHS tab 01/13/18 multivitamin with iron 1 tab PO DAILY 08/03/18 carboxymethylcellulose sodium 0.5 1 drp OPHTHALMIC 4-8XD PRN 08/31/ % eye drops alendronate 70 mg tablet 70 mg PO QWEEK 01/16/19 apixaban 5 mg tablet 5 mg PO BID #60 tab 07/24/19 psyllium husk 3.4 gram/5.4 gram 1 tbsp PO DAILY 09/17/19 oral powder Cholecalciferol (Vitamin D3) 50 mcg PO 11/25/20 [Vitamin D3] Surgical History: Surgical History (Last Reviewed 10/16/19 @ 11:[address] Ty Johnson MD) History of left heart catheterization (Resolved) Onset Date: ~05/15/08 Z98.890 History of adjustable gastric banding (Resolved) Z98.84 History of appendectomy (Resolved) Z98.890, Z90.49 History of tonsillectomy (Resolved) Z98.890, Z90.89 H/O mastectomy (Resolved) Z98.890, Z90.10 History of cataract surgery (Resolved) Z98.49 Surgical History: noncontributory Lives: Spouse/ Significant Other Smoking Status: Never smoker Alcohol: None Drugs: None - *Family History Maternal Family History: Family History (Last Reviewed 10/16/19 @ 11:[address] Ty Johnson MD) Father Heart disease Colon cancer Mother Breast cancer CVA (cerebral vascular accident) Grandmother CVA (cerebral vascular accident) Brother Diabetes History Items: No pertinent history Review of Systems Constitutional: Reports: Night Sweats. Denies: Chills, Fever, Weight Change HEENT: Denies: Head Aches, Sinus Congestion, Sinus Drainage Cardiovascular: Reports: Chest Pain. Denies: Palpitations Respiratory: Denies: Cough, Shortness of breath at rest, Sputum production Gastrointestinal: Denies: Abdominal Pain, Nausea, Vomiting Genitourinary: Denies: Dysuria Musculoskeletal: Denies: Joint Pain, Joint Tenderness Skin: Denies: Rash, Wounds Neurological: Denies: Numbness, Tingling, Focal weakness Psychiatric: Denies: Anxiety, Depression, Homicidal Ideations, Suicidal Ideations Hematologic/ Lymphatic: Denies: Easy Bruising, Easy Bleeding VTE Information - Inpt Only VTE Present on Admission: No VTE Mechan Device Prophylaxis: None VTE Pharm Prophylaxis ordered?: No - Physical Exam Vitals/I&O's: Vital Signs Temp Pulse Resp BP Pulse Ox 98 F 100 17 105/51 L 93 11/25/20 05:00 11/25/20 05:00 11/25/20 05:00 11/25/20 05:08 11/25/20 05:00 Oxygen Delivery Method Room Air Weight: 185 lb 3.013 oz Body Mass Index (BMI) 32.8 General: Alert, Oriented x3, Cooperative HEENT: Atraumatic, Normocephalic Neck: Supple Lungs: Clear to auscultation, Normal air movement, No rhonchi, No wheeze, No rales Cardiovascular: Regular rate, Regular Rhythm, Normal S1, Normal S2, No murmurs Abdomen: Bowel Sounds Present, Soft Extremities: No edema Skin: No rashes Musculoskeletal: No Tenderness to Palpation of Joints or Extremities Neurological: Neuro grossly intact Psych/Mental Status: Normal Affect, Appropriate Laboratory Results 11/25/20 03:58: WBC 15.8 H, RBC 4.68, Hgb 12.4, Hct 39.5, MCV 84.4, MCH 26.5 L, MCHC 31.4 L, RDW Std Deviation 44.3 H, RDW Coeff of Orestes 14.5, Plt Count 562 H, MPV 10.1, Immature Gran % (Auto) 0.400, Neut % (Auto) 66.5, Lymph % (Auto) 21.4, [place] % (Auto) 7.9, Eos % (Auto) 3.2, Baso % (Auto) 0.6, Absolute Neuts (auto) 10.5 H, Absolute Lymphs (auto) 3.38, Nucleated RBC % 0 11/25/20 03:58: Sodium 137, Potassium 3.3 L, Chloride 100, Carbon Dioxide 30.0, Anion Gap 7, BUN 12, Creatinine 0.88, Estim Creat Clear Calc 47.80, Est GFR (MDRD) Af Amer 81, Est GFR (MDRD) Non-Af 67, BUN/Creatinine Ratio 13.6, Glucose 124 H, Calcium 9.5, Troponin I < 0.015 11/25/20 05:27: COVID-19 ([place]) Pending Assessment/Plan All Active Problems (Last Reviewed 10/16/19 @ 11:[address] yT Johnson MD) Breast cancer (Resolved) History of left heart catheterization (Resolved ~05/15/08) History of adjustable gastric banding (Resolved) History of appendectomy (Resolved) History of tonsillectomy (Resolved) H/O mastectomy (Resolved) History of cataract surgery (Resolved) Chronic Problems (Last Reviewed 10/16/19 @ 11:[address] Ty Johnson MD) Fatigue (Chronic) Palpitations (Chronic) Dyspnea on exertion (Chronic) Mixed hyperlipidemia (Chronic) Essential (primary) hypertension (Chronic) OXANA (obstructive sleep apnea) (Chronic) Nonrheumatic mitral (valve) insufficiency (Chronic) Mild per ecoh 03/23/18 Nonrheumatic tricuspid (valve) insufficiency (Chronic) mild per echo 03/23/18 Obesity (Chronic) Paroxysmal atrial fibrillation (Chronic) Plan 1. Chest pain rule out CA?admit patient to progressive care unit for observation, cycle cardiac enzymes, set up nuclear stress test when enzymes are negative, order morphine as needed for pain, nitroglycerin as needed, oxygen per protocol and will not initiate routine aspirin therapy due to chronic anticoagulation on Eliquis. 2. Paroxysmal atrial fibrillation status post ablation?currently in sinus rhythm, continue Eliquis 3. Hyperlipidemia?continue statin 4. Hypertension?continue home routine medication 5. Fatigue?appears to be chronic and will see if any of inpatient work-up explains her complaint of fatigue 6. DVT prophylaxis?patient is anticoagulated on Eliquis OBSV E&M: [id number] Initial observation care L2
[2020-11-25] MEDS: Morphine 4 MG/ML Syringe IV (06:56)
[2020-11-25] MEDS: Ondansetron 4 MG/2 ML Vial IV (06:56)
--- NOTE | 2020-11-25 08:46 | EKG12_ITS ---
Test Reason : POST SENIOR MEDICAL WRITER Blood Pressure : / mmHG Vent. Rate : 078 BPM Atrial Rate : 078 BPM P-R Int : 184 ms QRS Dur : 086 ms QT Int : 406 ms P-R-T Axes : 061 030 057 degrees QTc Int : 462 ms Normal sinus rhythm ST elevation consider inferolateral injury or acute infarct * ACUTE MT Abnormal ECG Confirmed by RANI JACINTO, MIGUEL ([id number]), photograph editor KATI ZEPEDA ([id number]) on 12/02/2020 2:52:14 PM Referred By: CARIDAD Confirmed By:MIGUEL SARAVIA MD
[2020-11-25] MEDS: 0.9% Saline Lock 10 ML Syringe IV (09:52)
[2020-11-25] MEDS: Morphine 2 MG/ML Syringe IV (09:52)
[2020-11-25] MEDS: Nitroglycerin (INPATIENT USE) 0.4 MG TAB.SUBL SUBLINGUAL ×4 (11:13→21:20)
--- NOTE | 2020-11-25 12:26 | CT_ITS ---
STUDY: CTA CHEST REASON FOR EXAM: Female, 70 years old. RETROSTERNAL CHEST PAIN, SOB RADIATION DOSAGE (If Supplied By Facility): CTDIvol = ( 14.595 ) mGy, DLP = ( 605.39 ) mGycm TECHNIQUE: The examination was performed with the intravenous administration of IV 100ML ISOVUE 370. Post-processing of the angiographic images was performed, with multiplanar reformation and 3D reconstruction. Individualized dose optimization techniques were used for this CT. COMPARISON: Comparison is made with a prior examination dated 07/11/2018. FINDINGS: There is evidence of bilateral breast implants. Normal enhancement of the main pulmonary artery and right and left pulmonary arteries. Normal enhancement of the bilateral peripheral pulmonary arteries. There is no demonstrated pulmonary embolism. There is atherosclerotic calcification of the aortic arch with tortuosity. There is no demonstrated aortic dissection. Normal heart and pericardium. There are visualized mediastinal lymph nodes, which are within normal size limits, and with normal morphology. Normal hilar regions. Normal visualized trachea and bronchi. The lungs are well expanded. There is a 9.2 mm noncalcified nodule in the posterior-lateral aspect of the left lung apex. There is a 1 cm noncalcified nodule in the posterior aspect of the right upper lobe as seen on axial image #148. This abuts the pleural surface. There is also evidence of a focal infiltrate and/or scarring along the posterior lateral aspect of the right upper lobe. Stable increased interstitial markings at the lung bases suggestive of scarring. Normal pleura. Normal chest wall structures. There are degenerative changes of thoracic spine. Increased kyphosis. Multiple gallstones. CT/CTA Chest W/WO Contrast IMPRESSION: Stable scarring at the lung bases. Nodular densities in both upper lobes as described. Follow-up CT scan is recommended in 6 months. Electronically Signed: Jordan Adame MD at 13:24 EST , Service support ,
--- NOTE | 2020-11-25 12:32 | PCM.PN.BLA ---
Progress Note Patient was seen and examined this afternoon. She is still complaining of chest pain, retrosternal, severe pain, crushing pain, 20 5 out of 10 in severity according to the patient although she has been sitting comfortably and talking to me, aggravated by taking a deep breath, radiates to her back. Denied heartburn, nausea or vomiting. Currently, her vitals are stable. Initial and repeat EKG reviewed, no acute ischemic changes. Troponin was negative x3. Routine blood work was remarkable for leukocytosis and potassium of 3.3, otherwise normal. COVID-19 PCR was negative. Chest x-ray showed no acute findings. Patient stated that she cannot do nuclear stress test, she cannot run over the treadmill. Plan: CTA chest, cancel nuclear stress test, will do stress echocardiogram, Mylanta as needed, tonics twice daily, start IV Dilaudid for pain x1, check LFT and lipase, repeat CBC and BMP tomorrow morning. STROKE Vital Signs/Narrative: Vital Signs Pulse BP 11/25/20 11:26 100 104/60 11/25/20 11:19 92 100/58 L 11/25/20 11:13 96 132/75 H
[2020-11-25] MEDS: 0.9% Normal Saline 1,000 ML 75 ML IV (14:06)
[2020-11-25] MEDS: HYDROmorphone 1 MG/ML Syringe IV (14:07)
[2020-11-25 14:29] LABS: White Blood Count 17.2 K/mm3 (4.4-11.0)
[2020-11-25 14:43] LABS: AST(SGOT) 21 U/L (15-37); Alanine Aminotransfer ALT/SGPT 24 U/L (13-56); Albumin, Serum 2.5 g/dL (3.2-5.0); Alkaline Phosphatase 135 U/L (45-117); Bilirubin, Direct 0.13 mg/dL (0.00-0.30); Cholesterol 111 mg/dL (200); Globulin 4.9 g/dL (2.2-4.2); High Density Lipoprotein 43 mg/dL; Protein, Total 7.4 g/dL (6.4-8.2); Thyroid Stim Hormone (TSH) 1.79 uIU/mL (0.358-3.74); Triglycerides 76 mg/dL; Very Low Density Lipoprotein 15 mg/dL (5-40)
[2020-11-25] MEDS: levoFLOXacin IV 750 MG/150 ML BAG 100 MG IV (14:58)
[2020-11-25] MEDS: Ketorolac 15 MG/ML Vial IV (17:21)
--- NOTE | 2020-11-25 21:18 | PN_ITS ---
Progress Note Strip on telemetry with stemi elevation VA. Twelve-lead EKG showed ST elevation in inferior leads. Patient with right-sided chest pain. Discussed with cardiology interventionalist. Recommendation to give nitroglycerin and get a stat EKG. Give aspirin 81 mg x 1. Optical Element Coater interventionalist on his way to see patient. Discontinue Toradol. STEMI alert placed. Patient is on Eliquis. STROKE Vital Signs/Narrative: Vital Signs Pulse 11/25/20 20:00 78
--- NOTE | 2020-11-25 21:30 | NURSING ---
Patient's Derrell Falk ([phone]) notified at this time per this RN that Stemi Alert was called due to EKG changes. Pt currently being prepped for emergent cath. aware that he will need to enter at ED entrance and will be escorted to the [facility] waiting room. ED charge nurse updated on 15 minute arrival time of Derrell Falk and verbalized understanding that he will need escorted to computer lab para professional area. Hand Miter Operator Katharina updated of plan.
--- NOTE | 2020-11-25 21:44 | EKG12_ITS ---
Test Reason : STEMI Blood Pressure : / mmHG Vent. Rate : 090 BPM Atrial Rate : 090 BPM P-R Int : 170 ms QRS Dur : 082 ms QT Int : 372 ms P-R-T Axes : 050 035 063 degrees QTc Int : 455 ms Normal sinus rhythm ST elevation consider inferolateral injury or acute infarct Probable Acute Pericarditis Confirmed by MURPHY JACINTO, RYAN ([id number]), makeup editor KATI ZEPEDA ([id number]) on 11/27/2020 2:31:20 PM Referred By: CARIDAD Confirmed By:RYAN ARRINGTON MD
--- NOTE | 2020-11-25 23:17 | PCI.CARDCATH ---
PCI Cardiac Cath Report PCI Report: Procedure performed; 1 left heart catheterization 2. Successful percutaneous coronary intervention of high-grade 90% mid LAD. With predilatation and placement of drug-eluting stent 2.5 x 18 mm resolute [place] 3. Successful postdilatation using 2.75 x 15 mm NC balloon to the mid LAD . #4 Successful PTCA of D1 with] using 2.5 x 12 mm balloon reduction of stenosis from 90% to 20%. Preprocedure diagnosis; 70-year-old female who presented to hospital with symptoms of chest pain. She describe severe retrosternal chest pain while at home with diaphoresis Admitted to the hospital and had work-up in the progressive care unit with a series of cardiac enzymes which were negative. Patient known to have a history of atrial fibrillation and had a history of A. fib ablation and has been on anticoagulation apixaban She did mention last time she took apixaban is last night no other significant past medical history. Tonight the nursing staff in progressive care unit noted change on the campus monitor with ST elevation which prompted him to do an EKG showed change of ST elevation at least around 2 mm in the inferior lead. However her symptoms is very nonspecific she had right-sided chest pain beneath her right breast which is different from the retrosternal chest pain she had prior to admission. Also she has abnormal blood count with leukocytosis and elevated platelet count more than 500. She was given nitroglycerin which relieved her symptoms to some extent, 4 baby aspirin and we took her to the [facility] for further evaluation due to significant change in the EKG and symptoms of chest pain. Risk-benefit of procedure explained detail to the patient she elected to proceed informed consent obtained. Moderate sedation monitored by me in the [facility] patient was given Versed 1 mg and given fentanyl a total of 50 mcg by the nursing staff. Diagnostic and interventional catheter: 1. Approach right radial artery approach 2. Diagnostic catheter used 5 [place] JL 3.5, 5 [place] JR4 catheter 3. Interventional equipment we used serial XB guide catheter, we used 2 wires BMW and a run-through wire. Procedure in detail; Patient brought to the [facility], Access obtained from the right radial artery 6 [place] sheath placed in the right radial artery A cocktail of heparin 3000, nitroglycerin 100 mcg and verapamil 2.5 was given through the sheath We will proceed with the diagnostic catheter 5 [place] JL 3.5 advanced ascending aorta and we engaged the left coronary ostium without difficulty Multiple views of the left coronary system were obtained, including VINCENTIAN, CHAVEZ cranial and caudal views Following this the catheter exchanged for 5 [place] JR4 catheter Cross aortic valve placed in the mid LV measurement of LVEDP obtain Following this a pullback pressure recorded Then engaged the right coronary ostium and multiple views including VINCENTIAN and CHAVEZ cranial views to the RCA. Angiographic views were restarted and identified high-grade bifurcation lesion involving the mid LAD and a sidebranch diagonal which is at least 90%. She still having symptoms of atypical right-sided chest pain she is not diaphoretic and the EKG showing ST elevation is still noted in the monitor lead II. Given patient was given heparin total of 7000 units in addition to 3000 through the right radial sheath ACT level was around 252, then will proceed with the guide catheter engaged the left coronary ostium and we used 2 wires across lesion in the LAD with a run-through wire and then we crossed the lesion in the side branch with BMW wire. We proceed with predilatation of the sidebranch using 2 mm x 12 mm balloon We used the same balloon for the mid LAD Followed by 2.5 x 18 mm resolute [place] to the mid LAD Followed by using of NC balloon test 2.75 x 50 mm and achievement of excellent result and reduction of stenosis from 90% to 0% Still be noted there is a high-grade lesion involving the sidebranch therefore we will proceed with a BMW through the tract of the LAD to the side branch and we predilated with 2.5 x 12 mm balloon and achievement of the excellent result of sidebranch. LVEDP measuring around 18 mmHg Separate ostiae for the LAD and the left circumflex. Left anterior descending artery, a small to moderate in size, does not reach all the way to the apex Angiographically the mid LAD had a high-grade 90% stenosis involving the bifurcation of D1 which had ostial 90%. Left circumflex is a large vessel angiographically is normal codominant circulation. RCA is normal under graphically. Conclusion; \This patient presentation is atypical the change in her EKG does not correlate well to the angiographic findings Prior heart treatment is antiplatelet with the purulent and aspirin as she has a stent in the mid LAD and PTCA of a sidebranch with risk of in-stent thrombosis We will continue the Brilinta 90 mg twice daily low-dose aspirin We will hold Eliquis for now since she is remained in sinus rhythm. We will evaluate in the morning by 2D echocardiogram Patient tolerated the procedure very well with no complication in the [facility] TR band applied to right radial artery to maintain hemostasis. Fernando Cotto MD,FACC,[facility]
--- NOTE | 2020-11-25 23:40 | PCM.CONS.C ---
Reason for Consult History of Present Illness: The patient is a 70 year old F [] Past Medical History Allergies/Adverse Reactions: Allergies No Known Allergies Allergy (Verified 11/25/20 04:01) Home Medications: Ambulatory Orders Medication Instructions Recorded atorvastatin 10 mg tablet 10 mg PO QHS tab 01/13/18 multivitamin with iron 1 tab PO DAILY 08/03/18 carboxymethylcellulose sodium 0.5 1 drp OPHTHALMIC 4-8XD PRN 08/31/ % eye drops alendronate 70 mg tablet 70 mg PO QWEEK 01/16/19 apixaban 5 mg tablet 5 mg PO BID #60 tab 07/24/19 psyllium husk 3.4 gram/5.4 gram 1 tbsp PO DAILY 09/17/19 oral powder Cholecalciferol (Vitamin D3) 50 mcg PO 11/25/20 [Vitamin D3] Past Medical History (Chronic Problems): Chronic Problems (Last Updated 11/25/20 @ 13:[address] Eli Carrillo MD) Fatigue (Chronic) Palpitations (Chronic) Dyspnea on exertion (Chronic) Mixed hyperlipidemia (Chronic) Essential (primary) hypertension (Chronic) OXANA (obstructive sleep apnea) (Chronic) Nonrheumatic mitral (valve) insufficiency (Chronic) Mild per ecoh 03/23/18 Nonrheumatic tricuspid (valve) insufficiency (Chronic) mild per echo 03/23/18 Obesity (Chronic) Paroxysmal atrial fibrillation (Chronic) Surgical History: noncontributory - *Family History Maternal Family History: Family History (Last Reviewed 10/16/19 @ 11:[address] Ty Johnson MD) Father Heart disease Colon cancer Mother Breast cancer CVA (cerebral vascular accident) Grandmother CVA (cerebral vascular accident) Brother Diabetes History Items: No pertinent history Lives: Spouse/ Significant Other Smoking Status: Never smoker Alcohol: None Drugs: None Review of Systems - Review of Systems Cardiovascular: Denies: Chest Discomfort, Shortness of Breath, Orthopnea, PND, Peripheral Edema, Palpitations, Lightheadedness, Dizziness, Near Syncope, Syncope Respiratory: Denies: Cough, Sputum Production, Hemoptysis Gastrointestinal: Denies: Hematemesis, Hematochezia, Melena Genitourinary: Reports: Dysuria Skin: Denies: Rash Objective: Vital Signs Temp Pulse Resp BP Pulse Ox 98.1 F 85 18 122/35 H 96 11/25/20 17:11 11/25/20 23:21 11/25/20 21:31 11/25/20 21:31 11/25/20 17:11 Oxygen Flow Rate (L/min) 2 Oxygen Delivery Method Nasal Cannula Weight: 179 lb 14.355 oz Body Mass Index (BMI) 31.8 Intake and Output for Last 24 Hours 11/23/20 11/24/20 11/25/20 23:59 23:59 23:59 Intake Total 462.5 / 462.5 Output Total 0 / 0 Balance 462.5 / 462.5 General: Awake, Alert, Oriented x 3 HEENT: PERRL, EOMI, Sclera Non Icteric Neck: Supple, Good ROM, No Lymph Node Enlargement Lungs: Clear to auscultation Cardiovascular: Regular Rhythm, Normal S1, Normal S2, No Murmurs, No Rubs, No Gallops Vascular: No Carotid Bruits Abdomen: Bowel Sounds Present, Soft, Non Tender, No HSM, No Organomegaly Extremities: No Cyanosis, No Clubbing, No edema Neurological: No Focal Motor or Sensory Deficit 11/25/20 03:58: WBC 15.8 H, RBC 4.68, Hgb 12.4, Hct 39.5, MCV 84.4, MCH 26.5 L, MCHC 31.4 L, Plt Count 562 H, MPV 10.1, Immature Gran % (Auto) 0.400, Neut % (Auto) 66.5, Lymph % (Auto) 21.4, [place] % (Auto) 7.9, Eos % (Auto) 3.2, Baso % (Auto) 0.6, Absolute Neuts (auto) 10.5 H, Nucleated RBC % 0 11/25/20 03:58: Sodium 137, Potassium 3.3 L, Chloride 100, Carbon Dioxide 30.0, Anion Gap 7, BUN 12, Creatinine 0.88, Est GFR (MDRD) Af Amer 81, Est GFR (MDRD) Non-Af 67, BUN/Creatinine Ratio 13.6, Glucose 124 H, Calcium 9.5, Troponin I < 0.015 11/25/20 08:17: Total Bilirubin 0.40, Direct Bilirubin 0.13, Troponin I < 0.015, Triglycerides 76, Cholesterol 111, LDL Cholesterol 53, VLDL Cholesterol 15, HDL Cholesterol 43 11/25/20 10:57: Troponin I < 0.015 11/25/20 13:55: Troponin I < 0.015 11/25/20 13:55: WBC 17.2 H Rhythm: EKG: ECHO: Stress Test: Cardiac Cath: PCI: CT Surgery: Holter monitor: EPS: PPM: CXR: Chest CT Scan: Assessment/Plan This 70-year-old patient primary [address] Sellers, patient presented with symptoms of retrosternal chest pain While in the progressive care unit she developed change in the EKG /in the inferior lead with ST elevation and She had change of ST depression noted in the anterior lead mainly V1 V2. Patient known to have history of atrial fibrillation and has A. fib ablation and has been on anticoagulation with apixaban. Symptoms of chest pain is very atypical with right-sided underneath the right breast Cardiac exam essentially normal there is no murmur. Patient was taken to the [facility] and had high-grade bifurcation lesion involving small to moderate LAD Underwent PCI of mid LAD with placement of drug-eluting stent 2.5 x 18 mm resolute Gilbert and she had PTCA of D1 using 2.5 x 12 mm balloon The left circumflex and RCA were normal And the LVEDP measured around 80 mmHg and there was no gradient across aortic valve on the pullback Assessment and plan; Patient will be evaluated in the morning by transthoracic cardiogram We will continue on dual antiplatelet therapy with Brilinta and low-dose aspirin Patient being on statin atorvastatin will continue We will hold Eliquis she remains in sinus rhythm Also I will discussed the cardiac care plan with her primary 911 telecommunicator for continuation of cardiac care plan.
[2020-11-26] VITALS (27 sets, daily range): BP systolic 87–128; BP diastolic 57–81; PULSE 73–97; RESP 16–24; TEMP 36.2–37.1; O2SAT 94–100
--- NOTE | 2020-11-26 | NURSING ---
Beginning to release air from TR band per protocol.
--- NOTE | 2020-11-26 00:51 | ECHOCS_ITS ---
Reason For Study: S/P PA Procedure This was a 2D Doppler, Color Flow transthoracic echocardiogram. The study was technically difficult. Exam performed portable in ICU/CCU. Left Ventricle Normal LV size. Left ventricular systolic function is normal. The estimated ejection fraction is 65 %. Stage 2 diastolic dysfunction. No regional wall motion abnormalities noted. Right Ventricle Normal RV size. Normal systolic function. Atria Normal left atrium. Normal right atrium. Mitral Valve Normal mitral valve. No mitral valve insufficiency. Tricuspid Valve Normal tricuspid valve. Mild (1+) tricuspid valve insufficiency. Pulmonary artery systolic pressure is 30 mmHg. Aortic Valve Normal aortic valve. Pulmonic Valve The pulmonic valve is not well visualized. Great Vessels Normal aortic root. The pulmonary artery is normal size. Normal inferior vena cava. Pericardium/Pleural No pericardial effusion. Medication Diluted definity 2.5ml given slow IV push to enhance endocardial definition. MMode/2D Measurements & Calculations LVIDd: 4.1 cm IVSd: 1.1 cm Ao root diam: 2.9 cm LVIDs: 2.6 cm LVPWd: 1.1 cm RVDd: 2.9 cm FS: 37.2 % LAV(MOD-bp): 48.3 ml LA A4 area: 18.6 cm2 LA dimension(2D): 3.3 cm LAV(MOD-bp) Indexed: 26.1 ml/m2 LAV(MOD-sp2): 43.6 ml LAV(MOD-sp4): 51.6 ml RA A4 area: 11.7 cm2 Time Measurements MV dec time: 0.14 sec Doppler Measurements & Calculations MV E max karsten: 95.9 cm/sec Lat Peak E' Karsten: 9.0 cm/sec Med Peak E' Karsten: 6.0 cm/sec MV A max karsten: 76.3 cm/sec E/E' lat: 10.7 E/E' med: 16.0 MV E/A: 1.3 Ao V2 max: 134.5 cm/sec LV V1 max: 102.5 cm/sec PA V2 max: 88.4 cm/sec Ao max P.2 mmHg LV V1 max P.2 mmHg TR max karsten: 252.9 cm/sec TR max P.9 mmHg Interpretation Summary Normal LV size. Left ventricular systolic function is normal. The estimated ejection fraction is 65 %. Pulmonary artery systolic pressure is 30 mmHg. Stage 2 diastolic dysfunction. Ordering Physician: Fernando Cotto Referring Physician: Clive Shepherd Performed By: Vanessa Conner, HARRYCS, RVT
--- NOTE | 2020-11-26 02:55 | NURSING ---
TR band removed completely from pt's Rt wrist,gauze placed over puncture site in preparation for tegaderm pressure drsg; pt began c/o tenderness at site and then stated that's really starting to hurt. Gauze removed and noted hematoma forming beneath puncture, no blood or fluid coming from puncture, immediate manual pressure applied and hematoma massaged surrounding puncture. Second RN called to rm for assistance,TR band reapplied w/10ml of air instilled. Explained to pt that compression must remain in place now for at least 2hrs before beginning to release any air from the band. Pt states understanding, denies pain at site, only tenderness.
--- NOTE | 2020-11-26 03:28 | EKG12_ITS ---
Test Reason : REPEAT Blood Pressure : / mmHG Vent. Rate : 096 BPM Atrial Rate : 096 BPM P-R Int : 166 ms QRS Dur : 082 ms QT Int : 362 ms P-R-T Axes : 064 028 063 degrees QTc Int : 457 ms Normal sinus rhythm ST elevation consider inferolateral injury or acute infarct Acute Pericarditis Confirmed by MURPHY JACINTO, RYAN ([id number]), film or videotape editor KATI ZEPEDA ([id number]) on 11/27/2020 2:31:52 PM Referred By: FAHAD Confirmed By:RYAN ARRINGTON MD
--- NOTE | 2020-11-26 03:30 | EKG12_ITS ---
Test Reason : CP Blood Pressure : / mmHG Vent. Rate : 090 BPM Atrial Rate : 090 BPM P-R Int : 184 ms QRS Dur : 086 ms QT Int : 466 ms P-R-T Axes : 047 020 041 degrees QTc Int : 570 ms Normal sinus rhythm Prolonged QT Abnormal ECG Confirmed by MURPHY JACINTO, RYAN ([id number]), news copy editor KATI ZEPEDA ([id number]) on 12/01/2020 12:43:58 PM Referred By: KAREN Confirmed By:RYAN ARRINGTON MD
--- NOTE | 2020-11-26 03:30 | EKG12_ITS ---
Test Reason : CP Blood Pressure : / mmHG Vent. Rate : 092 BPM Atrial Rate : 092 BPM P-R Int : 176 ms QRS Dur : 082 ms QT Int : 414 ms P-R-T Axes : 005 012 138 degrees QTc Int : 511 ms Normal sinus rhythm Inferior infarct , age undetermined Abnormal ECG No previous ECGs available Confirmed by MURPHY JACINTO, RYAN ([id number]), mapping editor BALBIR PRESTON ([id number]) on 12/02/2020 12:27:28 PM Referred By: NATASHA Confirmed By:RYAN ARRINGTON MD
[2020-11-26 04:32] LABS: Absolute Lymphocyte Count 1.77 X10^3/uL (0.83-4.51); Absolute Neutrophil Count 9.5 X10^3/uL (2.0-7.7); Basophil# 0.03 X10^3/uL; Basophil% 0.2 % (0-1); Eosinophil# 0.06 X10^3/uL; Eosinophils% 0.5 % (0-5); Hematocrit 31.1 % (37-47); Hemoglobin 10.1 g/dL (12.0-15.0); Lymphocyte # 1.77 X10^3/ul (4.0); Lymphocyte % 13.8 % (19-41); Mean Corp Hgb Conc 32.5 g/dL (32-36); Mean Corpuscular Hgb 27.2 pg (27.0-32.0); Mean Corpuscular Volume 83.6 fL (81-99); Mean Platelet Vol. 10.1 fl (6.2-12.0); Monocyte# 1.34 X10^3/uL; Monocyte% 10.5 % (0-10); NRBC Flagged by Analyzer 0 % (0-5); Neutrophil % 74.3 % (47-70); Platelet Count 431 K/mm3 (150-450); RBC Distribution Width CV 14.6 % (11.6-14.6); RBC Distribution Width SD 45.1 fl (35.1-43.9); Red Blood Count 3.72 M/mm3 (4.2-5.4); White Blood Count 12.8 K/mm3 (4.4-11.0)
[2020-11-26 04:45] LABS: Anion Gap 4 (5-15); BUN 12 mg/dL (7-18); BUN/Creat Ratio 15.4 RATIO (10-20); Calcium,Total 8.5 mg/dL (8.5-10.1); Chloride 101 mmol/L (98-107); Creatinine, Serum 0.78 mg/dL (0.55-1.02); EST Glomerular Filtration Rate 77 mL/min (>60); Est Glom Filt Rate - Afr Amer 93 mL/min (>60); Estimated Creatinine Clearance 42.07 ml/min; Glucose 97 mg/dL (74-106); Potassium 4.1 mmol/L (3.5-5.1); Sodium Level 134 mmol/L (136-145)
--- NOTE | 2020-11-26 07:59 | EKG12_ITS ---
Test Reason : POST NM Blood Pressure : / mmHG Vent. Rate : 087 BPM Atrial Rate : 087 BPM P-R Int : 182 ms QRS Dur : 088 ms QT Int : 362 ms P-R-T Axes : 083 022 040 degrees QTc Int : 435 ms Normal sinus rhythm ST Elevation: consider inferior lateral injury or acute infarct Compared to 11/26/2020 (00:53): The aforemention changes are less prevalent and apper to be returnin g to baseline Confirmed by RANI JACINTO, MIGUEL ([id number]), video tape editor KATI ZEPEDA ([id number]) on 12/02/2020 2:51:41 PM Referred By: FAHAD Confirmed By:MIGUEL SARAVIA MD
--- NOTE | 2020-11-26 09:36 | CRPHASE1_ITS ---
Patient Communication PHII Cardiac Rehab Discussed with Patient:: Yes Guide to Cardiac Rehab Given to Patient:: Yes Cardiac Rehab Facility Choice List Given to Patient:: Yes Choice Program [facility] PHII:: Communication Given to CR, Refer to [facility] Burial Vault Maker:: Fernando Cotto PCP:: Harmeet Bond Phase II Cardiac Rehab:: Yes Sessions:: 36 sessions - 2 days/wk, 18 weeks Risk Factors/Lifestyle Family History: Family History (Last Reviewed 10/16/19 @ 11:[address] Ty Johnson MD) Father Heart disease Colon cancer Mother Breast cancer CVA (cerebral vascular accident) Grandmother CVA (cerebral vascular accident) Brother Diabetes Laboratory Values: Cardiac Rehab Phase I Labs Triglycerides 76 mg/dL (-199) 11/25/20 08:17 Cholesterol 111 mg/dL (200) 11/25/20 08:17 LDL Cholesterol 53 mg/dL (0-130) 11/25/20 08:17 HDL Cholesterol 43 mg/dL (40-) 11/25/20 08:17 Cardiac Rehabilitation Info Cardiac Rehabilitation Program Information: Cardiac Rehabilitation is important for patients like you who are recovering from a heart problem. Cardiac rehabilitation programs are recognized as integral to the continued care of the patient with coronary heart disease. The cardiac rehabilitation program is designed to optimize a patient's physical, psychological, and social functioning. Health ca re professionals work in cardiac rehabilitation programs and assist you with getting the treatments you need to get stronger and healthier - like exercise, healthy eating habits, and medications. Cardiac rehabilitation has been show to help people with heart problems live longer and have better life enjoyment than people who do not go to cardiac rehabilitation. Please contact the Cardiac Rehabilitation Program at [facility] at in two weeks if you have not heard from them.
--- NOTE | 2020-11-26 09:37 | CRPH1.INSTRU ---
General Education CAD and cardiac anatomy and function:: Patient communicates acknowledgment Explanation of diagnoses and procedures:: Patient communicates acknowledgment Sign/Symptoms of DE:: Patient communicates acknowledgment Antiplatelet therapy: Patient communicates acknowledgment Proper use of NTG-SL: Patient communicates acknowledgment Emergency procedures and activation of EMS: Patient communicates acknowledgment Compliance of all prescribed medications: Patient communicates acknowledgment Dyslipidemia Patient Dyslipidemia Risk Factors Are:: Total Cholesterol - 111, Triglycerides - 76, HDL - 43, LDL - 53 Recommendations Include:: Lipid profile provided, Reviewed NCEP/ATP guidelines, Therapeutic Lifestyle Change dietary guidelines Dyslipidemia Response Code:: Patient communicates acknowledgment Overweight/Obesity Recommendations Include:: Weight loss of 5-10%, Reduced calorie diet, Exercise 5-7 times/week Overweight/Obesity:: Patient communicates acknowledgment Hypertension Recommendations Include:: Maintain BP <130/85, DASH dietary guidelines, Decrease/maintain normal body weight Hypertension:: Patient communicates acknowledgment
[2020-11-26] MEDS: TICAGRELOR 90 MG TABLET PO ×2 (10:17→21:47)
[2020-11-26] MEDS: Aspirin 81 MG TAB.CHEW PO (10:17)
[2020-11-26] MEDS: levoFLOXacin IV 750 MG/150 ML BAG 100 MG IV (10:18)
--- NOTE | 2020-11-26 10:18 | PCM.PROGNOTE ---
Subjective: Chief complaint: Follow-up after admission for chest pain, suspected pneumonia, developed new EKG changes overnight and she was found to have acute ST elevation AR. Patient seen and examined. No acute events overnight. She stated that the retrosternal chest pain is almost gone. Still complaining of pain underneath her right breast, pleuritic pain. No shortness of breath. She is afebrile, other vital signs are stable. - Physical Exam Vitals/I&O's: Vital Signs Temp Pulse Resp BP Pulse Ox 97.3 F L 89 20 H 128/80 H 98 11/26/20 08:00 11/26/20 10:00 11/26/20 10:00 11/26/20 10:00 11/26/20 10:00 Oxygen Flow Rate (L/min) 2 Oxygen Delivery Method Room Air Weight: 184 lb Body Mass Index (BMI) 31.8 Intake and Output for Last 24 Hours 11/24/20 11/25/20 11/26/20 23:59 23:59 23:59 Intake Total 462.5 / 462.5 1027.50 / 1027.50 Output Total 0 / 0 350 / 350 Balance 462.5 / 462.5 677.50 / 677.50 General: Alert, Oriented x3, Cooperative, No apparent distress HEENT: Atraumatic, PERRLA, EOMI, Normocephalic Oral: Moist Mucosa, No Gingival or Mucosal Lesions/ Ulcerations Neck: Supple, No JVD, Negative Carotid Bruits, Trachea Midline, Thyroid Normal Size and Texture Lungs: Clear to auscultation, No rhonchi, No wheeze, No rales, Diminished Cardiovascular: Regular rate, Regular Rhythm, Normal S1, Normal S2, PMI Normal Abdomen: Bowel Sounds Present, Soft, Non Tender, Non-Distended, No Hepato-splenomegaly Extremities: No clubbing, No cyanosis, No edema Skin: No rashes, No breakdown Lymphatic: No Cervical, Supraclavicular, or Inguinal Adenopathy Neurological: Cranial nerves II-XII grossly intact, Motor Exam 5/5 strength throughout Psych/Mental Status: Normal Affect, Appropriate, Alert and oriented to time, place, person, mood and affect Laboratory Results 11/25/20 08:17: Total Bilirubin 0.40, Direct Bilirubin 0.13, AST 21, ALT 24, Alkaline Phosphatase 135 H, Total Protein 7.4, Albumin 2.5 L, Globulin 4.9 H, Triglycerides 76, Cholesterol 111, LDL Cholesterol 53, VLDL Cholesterol 15, HDL Cholesterol 43, TSH 1.79 11/25/20 10:57: Troponin I < 0.015 11/25/20 13:55: Troponin I < 0.015 11/25/20 13:55: WBC 17.2 H 11/26/20 04:25: WBC 12.8 H, RBC 3.72 L, Hgb 10.1 L, Hct 31.1 L, MCV 83.6, MCH 27.2, MCHC 32.5, RDW Std Deviation 45.1 H, RDW Coeff of Orestes 14.6, Plt Count 431, MPV 10.1, Immature Gran % (Auto) 0.700, Neut % (Auto) 74.3 H, Lymph % (Auto) 13.8 L, [place] % (Auto) 10.5 H, Eos % (Auto) 0.5, Baso % (Auto) 0.2, Absolute Neuts (auto) 9.5 H, Absolute Lymphs (auto) 1.77, Nucleated RBC % 0 11/26/20 04:25: Sodium 134 L, Potassium 4.1, Chloride 101, Carbon Dioxide 29.0, Anion Gap 4 L, BUN 12, Creatinine 0.78, Estim Creat Clear Calc 42.07, Est GFR (MDRD) Af Amer 93, Est GFR (MDRD) Non-Af 77, BUN/Creatinine Ratio 15.4, Glucose 97, Calcium 8.5 Clinical Impression(s) from Imaging Studies Chest X-Ray 11/25/20 03:54 IMPRESSION: No acute cardiopulmonary abnormality. at 0444 Reported and signed by: Zenia Dawkins MD Electronically Signed: Zenia Dawkins MD at 4:44 EST Tel , Service support , Chest CTA 11/25/20 12:26 IMPRESSION: Stable scarring at the lung bases. Nodular densities in both upper lobes as described. Follow-up CT scan is recommended in 6 months. Electronically Signed: Jordan Adame MD at 13:24 EST , Service support , Current Medications Al Hydroxide/Mg Hydroxide (Mag Hydrox/Al Hydrox/Simeth 30 Ml Udc) 30 ml PO Q6H PRN PRN PRN Reason: Heartburn, indigestion Aspirin (Aspirin 81 Mg Tab.Chew) 81 mg PO DAILY@0800 [facility] Atorvastatin Calcium (Atorvastatin Calcium 10 Mg Tablet) 10 mg PO QHS [facility] Last Admin: 11/26/20 00:23 Dose: Not Given Documented by: Levofloxacin (Levaquin Iv) 750 mg in 150 mls @ 100 mls/hr IV Q24 [facility] Last Infusion: 11/25/20 16:47 Dose: Infused Documented by: Morphine Sulfate (Morphine 2 Mg/Ml Syringe) 2 mg IV Q3H PRN PRN PRN Reason: Pain Score 6-10 Last Admin: 11/25/20 09:52 Dose: 2 mg Documented by: Nitroglycerin (Nitroglycerin (Inpatient Use) 0.4 Mg Tab.Subl) 0.4 mg SUBLINGUAL Q5M PRN PRN Reason: CARDIAC/CHEST PAIN Last Admin: 11/25/20 21:20 Dose: 0.4 mg Documented by: Ondansetron HCl (Ondansetron 4 Mg/2 Ml Vial) 4 mg IV Q8H PRN PRN PRN Reason: NAUSEA/VOMITING Pantoprazole Sodium (Pantoprazole Sodium 40 Mg Tablet) 40 mg PO BID [facility] Last Admin: 11/26/20 00:23 Dose: Not Given Documented by: Sodium Chloride (0.9% Saline Lock 10 Ml Syringe) 10 - 40 ml IV UD PRN PRN Reason: SALINE FLUSH Last Admin: 11/25/20 09:52 Dose: 10 ml Documented by: Ticagrelor (Ticagrelor 90 Mg Tablet) 90 mg PO BID [facility] Medical Necessity - Tobacco Use Smoking Status: Never smoker Assessment/Plan All Active Problems (Last Updated 11/26/20 @ 10:[address] Eli Carrillo MD) Acute ST elevation myocardial infarction (Acute) Suspected pneumonia (Acute) This is a 70 years old female patient admitted because of chest pain, initial work-up including EKG, chest x-ray and cardiac enzymes were unremarkable, had CTA chest done and showed questionable right upper lobe infiltrate as well as bilateral upper lobe nodular densities, was started for Levaquin for suspected pneumonia and overnight, she developed new EKG changes consistent with acute ST elevation AR underwent emergent cardiac catheterization with PCI/ADELITA to LAD. #[address] elevation AR: Initial and repeat EKG was unremarkable. Another repeat EKG done last night and revealed ST elevation in leads II, III and aVF. Patient underwent emergent cardiac catheterization, found to have high-grade 90% stenosis of the mid LAD, status post PTCA/ADELITA to mid LAD. She is on aspirin, statins and Brilinta. Currently, she denies any more retrosternal chest pain. Her vital signs are stable. 2D echocardiogram done this morning. Cardiology on the case. Plan: Continue same treatment, may need to start her on beta-blockers if okay with cardiology, repeat CBC and BMP tomorrow morning, transfer to PCU if okay with cardiology. #2 suspected community-acquired pneumonia: This is based on 1 month history of productive cough and mild shortness of breath, received 1 week of antibiotics around 3 weeks ago with minimal improvement and recurrence of symptoms. CTA chest reviewed as above. Patient did have leukocytosis on admission, she has been afebrile. She was started on IV Levaquin yesterday as well as IV Toradol for pleuritic chest pain. Plan: Continue same treatment, repeat CBC and BMP tomorrow morning. #3 hypertension: Blood pressure stable, probably will need to start him beta-blockers for CAD. #4 paroxysmal atrial fibrillation: Currently, she is in sinus rhythm, rate is controlled. Eliquis held because she underwent cardiac catheterization last night. #5 hyperlipidemia: Continue statins. #6 history of breast cancer: Status post surgery and chemotherapy, in remission. #7 DVT prophylaxis: SCDs. This note was generated with [employer] dictation software. It may contain incorrect words, spelling, and punctuation that were not noted in checking the note before signing. Inpatient E&M: 68184 Subs Hosp L2
[2020-11-26] MEDS: 0.9% Saline Lock 10 ML Syringe IV (10:24)
--- NOTE | 2020-11-26 11:17 | PN.CARD_ITS ---
Objective: Vital Signs Temp Pulse Resp BP Pulse Ox 97.3 F L 89 20 H 128/80 H 98 11/26/20 08:00 11/26/20 10:00 11/26/20 10:00 11/26/20 10:00 11/26/20 10:00 Oxygen Flow Rate (L/min) 2 Oxygen Delivery Method Room Air Weight: 184 lb Body Mass Index (BMI) 31.8 Intake and Output for Last 24 Hours 11/24/20 11/25/20 11/26/20 23:59 23:59 23:59 Intake Total 462.5 / 462.5 1267.50 / 1267.50 Output Total 0 / 0 750 / 750 Balance 462.5 / 462.5 517.50 / 517.50 11/25/20 08:17: Total Bilirubin 0.40, Direct Bilirubin 0.13, Triglycerides 76, Cholesterol 111, LDL Cholesterol 53, VLDL Cholesterol 15, HDL Cholesterol 43 11/25/20 10:57: Troponin I < 0.015 11/25/20 13:55: Troponin I < 0.015 11/25/20 13:55: WBC 17.2 H 11/26/20 04:25: WBC 12.8 H, RBC 3.72 L, Hgb 10.1 L, Hct 31.1 L, MCV 83.6, MCH 27.2, MCHC 32.5, Plt Count 431, MPV 10.1, Immature Gran % (Auto) 0.700, Neut % (Auto) 74.3 H, Lymph % (Auto) 13.8 L, [place] % (Auto) 10.5 H, Eos % (Auto) 0.5, Baso % (Auto) 0.2, Absolute Neuts (auto) 9.5 H, Nucleated RBC % 0 11/26/20 04:25: Sodium 134 L, Potassium 4.1, Chloride 101, Carbon Dioxide 29.0, Anion Gap 4 L, BUN 12, Creatinine 0.78, Est GFR (MDRD) Af Amer 93, Est GFR (MDRD) Non-Af 77, BUN/Creatinine Ratio 15.4, Glucose 97, Calcium 8.5 Rhythm: EKG: ECHO: Stress Test: Cardiac Cath: PCI: CT Surgery: Holter monitor: EPS: PPM: CXR: Chest CT Scan: Medical Necessity - Tobacco Use Smoking Status: Never smoker Assessment/Plan Patient is seen and evaluated today at bedside, still having right-sided chest pain especially when she take a deep breath Highly suggestive of pericarditis. She remained in sinus rhythm and stable hemodynamically Cardiac exam essentially normal with no pericardial rub. Right radial artery is palpable she had mild bruises at the right radial artery arteriotomy site. Repeat electrocardiogram showed change of ST T suggestive of pericarditis. Plan; I discussed cardiac care plan in detail with the patient and I recommend to start on cardiac rehab as outpatient Also I did recommend also to follow-up with the cardiology team here Dr. Man for continuation of cardiac care. I reviewed her current medication patient will be on the following medication 1. Low-dose aspirin 81 mg 2. Brilinta 90 mg twice a day 3. Atorvastatin 4. Low-dose beta-rogelio metoprolol 12.5 mg twice daily I discontinue Eliquis patient remains in normal sinus rhythm following ablation of A. fib. Signs or her current medication, lab test, cardiac telemetry have been reviewed today. She had bifurcation lesion involving mid LAD and diagonal branch which she underwent successful PCI and stenting of the mid LAD and balloon dilatation of the sidebranch. From cardiac standpoint we will continue current treatment and will review the echocardiogram Patient can be transferred to the progressive care unit this afternoon unlikely if she remains stable can be discharged from cardiac standpoint to follow-up as an outpatient within 2 days.
[2020-11-26] MEDS: Metoprolol Tartrate 25 MG Tablet 12.5 MG PO ×2 (12:08→21:48)
--- NOTE | 2020-11-26 13:15 | NURSING ---
RN CM Assessment Introduced role of RN CM to patient.? Patient is alert, oriented and able?to participate in RN CM Assessment. ?Care providers, pharmacy, and demographics verified. Presentation: CP, H/o Afib s/p Ablation 2019 Admit Dx: CP, R/o IL- Developed STEMI and underwent cardiac cath. Re-Admit: No Barriers/Issues: Patient states her energy and strength has progressively worsened over the past several years-Doctors unable to figure out what was wrong. States has not ambulated and been chair bound x3-4 months. Used to go to [employer] and do water aerobics but stopped once Covid Pandemic started. Her has assisted her. She has friends that are near but her kids live out of state. PCP: Clive Shepherd Specialists: Cardio- used to see Magda but was referred for ablation to Dr Mando Reid #[phone]. Preferred Pharmacy: [facility] for one time medication otherwise uses [facility], [place] for refills. Insurance: [facility] A/B Rx Benefit:?Yes with Blue Cross. Brillinta Card provided to patient. Commercial: BIN# [id number]. PCN# [id number]. GRP# [id number]. ID# [id number]; [facility]: BIN# [id number]. PCN# [id number]. GRP# [id number]. ID# [id number]. LNOK: Derrell Falk LW/HPOA: HPOA on file with [facility]- Derrell Falk Living Arrangements:? Lives with her in a [facility], has a walk out basement. Bedroom on first fl. 3 steps to enter home. ADL?s: Has been chair bound x3-4 months. Independent with ADLs except pt does assist her into shower and assists with meals. Transportation: and will transport DC DME: Basil VASQUEZ, [facility] HHC/SNF: None Goal: Home and does not think will have any additional needs. Denies any issues, concerns, or questions with DC planning at this time. Aware RNCM remains available for any emerging needs. DC PLAN: Home with no anticipated needs identified- Given Brillinta Card. RNCM to follow up at DC if needing to call pharmacy for coverage information and provide Brillinta Card info (see above). Patient does have her Rx Blue Cross card on her if needed. NEGRO Menon
[2020-11-26] MEDS: Pantoprazole Sodium 40 MG Tablet PO (21:47)
[2020-11-26] MEDS: Atorvastatin Calcium 10 MG Tablet PO (21:47)
[2020-11-27] MEDS: Morphine 2 MG/ML Syringe IV ×2 (03:48→07:05)
[2020-11-27 05:00] VITALS: BP 117/64; PULSE 78; RESP 17; TEMP 36.9; O2SAT 97
[2020-11-27 07:00] VITALS: PULSE 78
[2020-11-27 08:42] LABS: Absolute Lymphocyte Count 1.53 X10^3/uL (0.83-4.51); Absolute Neutrophil Count 7.9 X10^3/uL (2.0-7.7); Basophil# 0.04 X10^3/uL; Basophil% 0.4 % (0-1); Eosinophil# 0.25 X10^3/uL; Eosinophils% 2.3 % (0-5); Hemoglobin 10.5 g/dL (12.0-15.0); Lymphocyte # 1.53 X10^3/ul (4.0); Lymphocyte % 14.3 % (19-41); Mean Corp Hgb Conc 31.8 g/dL (32-36); Mean Corpuscular Hgb 26.9 pg (27.0-32.0); Mean Corpuscular Volume 84.4 fL (81-99); Mean Platelet Vol. 10.2 fl (6.2-12.0); Monocyte# 0.93 X10^3/uL; Monocyte% 8.7 % (0-10); NRBC Flagged by Analyzer 0 % (0-5); Neutrophil # 7.89 X10^3/uL (2.7-7.7); Neutrophil % 73.9 % (47-70); Platelet Count 467 K/mm3 (150-450); RBC Distribution Width CV 14.6 % (11.6-14.6); RBC Distribution Width SD 44.9 fl (35.1-43.9); Red Blood Count 3.91 M/mm3 (4.2-5.4); White Blood Count 10.7 K/mm3 (4.4-11.0)
[2020-11-27 08:54] LABS: Anion Gap 6 (5-15); BUN 9 mg/dL (7-18); BUN/Creat Ratio 12.2 RATIO (10-20); Calcium,Total 9.1 mg/dL (8.5-10.1); Chloride 106 mmol/L (98-107); Creatinine, Serum 0.74 mg/dL (0.55-1.02); EST Glomerular Filtration Rate 83 mL/min (>60); Est Glom Filt Rate - Afr Amer 100 mL/min (>60); Estimated Creatinine Clearance 42.07 ml/min; Glucose 91 mg/dL (74-106); Potassium 3.8 mmol/L (3.5-5.1); Sodium Level 139 mmol/L (136-145)
--- NOTE | 2020-11-27 10:00 | PCM.DC ---
- Discharge Diagnoses Current Active Problems: Current Active and Chronic Problems (Last Updated 11/26/20 @ 16:34 by Makenna Milner) Mixed hyperlipidemia (Chronic) Essential (primary) hypertension (Chronic) OXANA (obstructive sleep apnea) (Chronic) You will use the following diet at home:: Cardiac Your food should be the consistency of: Regular Discharge Activity: Return to Normal Activity Weight Bearing Status: Weight bearing as tolerated Call your doctor if you observe: Fever of 101 or Higher, Shortness of breath, Dizziness, Fainting spells, Chest pain, Increased palpitations (irregular heartbeat), Uncontrolled pain Additional Instructions: Use Aleve or Tylenol as needed for pain. Allergies/Adverse Reactions: Allergies No Known Allergies Allergy (Verified 11/25/20 04:01) Medications to take at Discharge atorvastatin 10 mg tablet 10 mg PO QHS tab 01/13/18 multivitamin with iron 1 tab PO DAILY 08/03/18 carboxymethylcellulose sodium 0.5 % eye drops 1 drp OPHTHALMIC 4-8XD PRN 08/31/18 alendronate 70 mg tablet 70 mg PO QWEEK 01/16/19 psyllium husk 3.4 gram/5.4 gram oral powder 1 tbsp PO DAILY 09/17/19 Cholecalciferol (Vitamin D3) [Vitamin D3] 50 mcg PO 11/25/20 Aspirin [Aspirin, Baby] 81 mg PO DAILY@0800 #90 tab.chew 11/27/20 Metoprolol Tartrate [Lopressor (beta rogelio)] 12.5 mg PO BID #90 tab 11/27/20 Ticagrelor [Brilinta] 90 mg PO BID #90 tab 11/27/20 levoFLOXacin tablet [Levaquin tablet] 750 mg PO DAILY #5 tab 11/27/20 The following prescriptions were given: Aspirin [Aspirin, Baby] 81 mg PO DAILY@0800 #90 tab.chew Transmission Status: Pending to [facility] #30 Ticagrelor [Brilinta] 90 mg PO BID #90 tab Transmission Status: Pending to [facility] #30 levoFLOXacin tablet [Levaquin tablet] 750 mg PO DAILY #5 tab Transmission Status: Pending to [facility] #30 Metoprolol Tartrate [Lopressor (beta rogelio)] 12.5 mg PO BID #90 tab Transmission Status: Pending to [facility] #30 Primary Care Physician: Clive Shepherd DO [Primary Care Provider] - Please follow up with your Primary Care Physician in: 1 WEEK. Test Results: Test results from this visit will be discussed in further detail at your follow-up appointment, if applicable. Please Follow Up With: Adasrh Man MD When: 2 WEEKS.
[2020-11-27] MEDS: levoFLOXacin IV 750 MG/150 ML BAG 100 MG IV (10:11)
[2020-11-27] MEDS: Aspirin 81 MG TAB.CHEW PO (10:13)
[2020-11-27] MEDS: TICAGRELOR 90 MG TABLET PO (10:14)
[2020-11-27] MEDS: Pantoprazole Sodium 40 MG Tablet PO (10:16)
--- NOTE | 2020-11-27 10:21 | DS.PCM_ITS ---
Discharge Date and Diagnosis Date of Admission: 11/25/20 Date of Discharge: 11/27/20 - Primary Discharge Diagnosis Acute Problems: #[address], status post PTCA/ADELITA to mid LAD. #2 community-acquired pneumonia. - Secondary Discharge Diagnosis Chronic Problems: Chronic Problems (Last Updated 11/26/20 @ 16:34 by Makenna Milner) Atherosclerotic heart disease of [place] coronary artery without angina pectoris (Chronic) History of breast cancer (Chronic) Mixed hyperlipidemia (Chronic) Essential (primary) hypertension (Chronic) OXANA (obstructive sleep apnea) (Chronic) Nonrheumatic mitral (valve) insufficiency (Chronic) Mild per ecoh 03/23/18 Nonrheumatic tricuspid (valve) insufficiency (Chronic) mild per echo 03/23/18 Paroxysmal atrial fibrillation (Chronic) Hospital Course and Treatment Imaging Results: Clinical Impression(s) from Imaging Studies Chest X-Ray 11/25/20 03:54 IMPRESSION: No acute cardiopulmonary abnormality. at 0444 Reported and signed by: Zenia Dawkins MD Electronically Signed: Zenia Dawkins MD at 4:44 EST Tel , Service support , Chest CTA 11/25/20 12:26 IMPRESSION: Stable scarring at the lung bases. Nodular densities in both upper lobes as described. Follow-up CT scan is recommended in 6 months. Electronically Signed: Jordan Adame MD at 13:24 EST , Service support , Dr. Cotto, cardiology. Procedures: 2-D Echocardiogram, Cardiac catheterization, EKG Summary of Care Provided: Patient seen and examined on the day of discharge and appeared to be stable for discharge home. Both retrosternal and right-sided chest pain significantly improved. She has been afebrile, other vital signs are stable. This is a 70 years old female patient admitted because of chest pain, initial work-up including EKG, chest x-ray and cardiac enzymes were unremarkable, had CTA chest done and showed questionable right upper lobe infiltrate as well as bilateral upper lobe nodular densities, was started for Levaquin for community- acquired pneumonia and overnight, she developed new EKG changes consistent with acute ST elevation CT underwent emergent cardiac catheterization with PCI/ADELITA to LAD. #[address]: Status post PTCA/ADELITA to mid LAD. Initial and repeat EKG was unremarkable. Secondary post admission, patient developed new EKG changes consistent with acute ST elevation CT and she underwent emergent cardiac catheterization. She was found to have high-grade 90% stenosis of the mid LAD, status post PTCA/ADELITA to mid LAD. Treated with aspirin, statins, metoprolol and Brilinta. 2D echocardiogram revealed normal LV size and function, ejection fraction was 65%, stage II diastolic dysfunction. Patient discharged home on aspirin, statins, metoprolol and Brilinta. Eliquis discontinued at this time. #2 community-acquired pneumonia: This is based on 1 month history of productive cough and mild shortness of breath, received 1 week of antibiotics around 3 weeks ago with minimal improvement and recurrence of symptoms. CTA chest revealed questionable right upper lobe infiltrate. Patient did have leukocyt osis on admission, she has been afebrile. She was treated with IV Levaquin yesterday as well as IV Toradol for pleuritic chest pain. With treatment, his symptoms improved, chest pain improved. She remained afebrile, WBC returned back to normal. Patient was discharged on Levaquin p.o. to complete total 7 days of treatment. #3 hypertension: Blood pressure stable, discharged on metoprolol. #4 paroxysmal atrial fibrillation: Remained in sinus rhythm, rate is controlled. Discharged on metoprolol, Eliquis held upon discharge according to cardiology recommendation and plan to start her after follow-up with cardiology as outpatient. #5 hyperlipidemia: Continued on statins. Patient discharged home in a stable medical condition, discharged on Levaquin 750 mg p.o. daily for 5 days to complete total of 7 days of treatment for pneumonia, discharged on aspirin, statins, beta-blockers and Brilinta, Eliquis held at this time as above, plan to follow-up with cardiology in 2 weeks, follow-up with PCP in 1 week. This note was generated with [employer] software. It may contain incorrect words, spelling, and punctuation that were not noted in checking the note before signing. - Physical Exam Vitals/I&O's: Vital Signs Temp Pulse Resp BP Pulse Ox 98.4 F 78 17 117/64 97 11/27/20 05:00 11/27/20 07:00 11/27/20 05:00 11/27/20 05:00 11/27/20 05:00 Oxygen Flow Rate (L/min) 2 Oxygen Delivery Method Room Air Weight: 179 lb 10.828 oz Body Mass Index (BMI) 31.8 Intake and Output for Last 24 Hours 11/25/20 11/26/20 11/27/20 23:59 23:59 23:59 Intake Total 462.5 / 462.5 1717.50 / 1717.50 Output Total 0 / 0 950 / 950 Balance 462.5 / 462.5 767.50 / 767.50 General: Alert, Oriented x3, Cooperative, No apparent distress HEENT: Atraumatic, PERRLA, EOMI, Normocephalic Oral: Moist Mucosa, No Gingival or Mucosal Lesions/ Ulcerations Neck: Supple, No JVD, Negative Carotid Bruits, Trachea Midline, Thyroid Normal Size and Texture Lungs: Clear to auscultation, Normal air movement, No rhonchi, No wheeze, No rales, Diminished Cardiovascular: Regular rate, Regular Rhythm, Normal S1, Normal S2, PMI Normal Abdomen: Bowel Sounds Present, Soft, Non Tender, Non-Distended, No Hepato- splenomegaly Extremities: No clubbing, No cyanosis, No edema Skin: No rashes, No breakdown Lymphatic: No Cervical, Supraclavicular, or Inguinal Adenopathy Neurological: Cranial nerves II-XII grossly intact, Neuro grossly intact Psych/Mental Status: Normal Affect, Appropriate Laboratory Results 11/27/20 08:34: WBC 10.7, RBC 3.91 L, Hgb 10.5 L, Hct 33.0 L, MCV 84.4, MCH 26.9 L, MCHC 31.8 L, RDW Std Deviation 44.9 H, RDW Coeff of Orestes 14.6, Plt Count 467 H , MPV 10.2, Immature Gran % (Auto) 0.400, Neut % (Auto) 73.9 H, Lymph % (Auto) 14.3 L, [place] % (Auto) 8.7, Eos % (Auto) 2.3, Baso % (Auto) 0.4, Absolute Neuts (auto) 7.9 H, Absolute Lymphs (auto) 1.53, Nucleated RBC % 0 11/27/20 08:34: Sodium 139, Potassium 3.8, Chloride 106, Carbon Dioxide 27.0, Anion Gap 6, BUN 9, Creatinine 0.74, Estim Creat Clear Calc 42.07, Est GFR (MDRD) Af Amer 100, Est GFR (MDRD) Non-Af 83, BUN/Creatinine Ratio 12.2, Glucose 91, Calcium 9.1 Current Medications Al Hydroxide/Mg Hydroxide (Mag Hydrox/Al Hydrox/Simeth 30 Ml Udc) 30 ml PO Q6H PRN PRN PRN Reason: Heartburn, indigestion Aspirin (Aspirin 81 Mg Tab.Chew) 81 mg PO DAILY@0800 [facility] Last Admin: 11/27/20 10:13 Dose: 81 mg Documented by: Atorvastatin Calcium (Atorvastatin Calcium 10 Mg Tablet) 10 mg PO QHS [facility] Last Admin: 11/26/20 21:47 Dose: 10 mg Documented by: Levofloxacin (Levaquin Iv) 750 mg in 150 mls @ 100 mls/hr IV Q24 [facility] Last Admin: 11/27/20 10:11 Dose: 100 mls/hr Documented by: Sodium Chloride () 250 mls @ 15 mls/hr IV .[id number] PRN PRN Reason: Saline Flush Last Infusion: 11/26/20 15:48 Dose: 0 mls/hr Documented by: Sodium Chloride () 250 mls @ 15 mls/hr IV .[id number] PRN PRN Reason: Additional IVPB Infusion Metoprolol Tartrate (Metoprolol Tartrate 25 Mg Tablet) 12.5 mg PO BID [facility] Last Admin: 11/26/20 21:48 Dose: 12.5 mg Documented by: Morphine Sulfate (Morphine 2 Mg/Ml Syringe) 2 mg IV Q3H PRN PRN PRN Reason: Pain Score 6-10 Last Admin: 11/27/20 07:05 Dose: 2 mg Documented by: Nitroglycerin (Nitroglycerin (Inpatient Use) 0.4 Mg Tab.Subl) 0.4 mg SUBLINGUAL Q5M PRN PRN Reason: CARDIAC/CHEST PAIN Last Admin: 11/25/20 21:20 Dose: 0.4 mg Documented by: Ondansetron HCl (Ondansetron 4 Mg/2 Ml Vial) 4 mg IV Q8H PRN PRN PRN Reason: NAUSEA/VOMITING Pantoprazole Sodium (Pantoprazole Sodium 40 Mg Tablet) 40 mg PO BID [facility] Last Admin: 11/27/20 10:16 Dose: 40 mg Documented by: Sodium Chloride (0.9% Saline Lock 10 Ml Syringe) 10 - 40 ml IV UD PRN PRN Reason: SALINE FLUSH Last Admin: 11/26/20 10:24 Dose: 20 ml Documented by: Ticagrelor (Ticagrelor 90 Mg Tablet) 90 mg PO BID [facility] Last Admin: 11/27/20 10:14 Dose: 90 mg Documented by: Discharge Activity: Return to Normal Activity Weight Bearing Status: Weight bearing as tolerated Call your doctor if you observe: Fever of 101 or Higher, Shortness of breath, Dizziness, Fainting spells, Chest pain, Increased palpitations (irregular heartbeat), Uncontrolled pain Home Medications: Medications to take at Discharge atorvastatin 10 mg tablet 10 mg PO QHS tab 01/13/18 multivitamin with iron 1 tab PO DAILY 08/03/18 carboxymethylcellulose sodium 0.5 % eye drops 1 drp OPHTHALMIC 4-8XD PRN 08/31 alendronate 70 mg tablet 70 mg PO QWEEK 01/16/19 psyllium husk 3.4 gram/5.4 gram oral powder 1 tbsp PO DAILY 09/17/19 Cholecalciferol (Vitamin D3) [Vitamin D3] 50 mcg PO 11/25/20 Aspirin [Aspirin, Baby] 81 mg PO DAILY@0800 #90 tab.chew 11/27/20 Metoprolol Tartrate [Lopressor (beta andrea)] 12.5 mg PO BID #90 tab 11/27/20 Ticagrelor [Brilinta] 90 mg PO BID #90 tab 11/27/20 levoFLOXacin tablet [Levaquin tablet] 750 mg PO DAILY #5 tab 11/27/20 Following Prescriptions Were Given to Patient: Aspirin [Aspirin, Baby] 81 mg PO DAILY@0800 #90 tab.chew Transmission Status: Received by [facility] #30 Ticagrelor [Brilinta] 90 mg PO BID #90 tab Transmission Status: Received by [facility] #30 levoFLOXacin tablet [Levaquin tablet] 750 mg PO DAILY #5 tab Transmission Status: Received by [facility] #30 Metoprolol Tartrate [Lopressor (beta andrea)] 12.5 mg PO BID #90 tab Transmission Status: Received by [facility] #30 Primary Care Physician: Clive Shepherd DO [Primary Care Provider] - Please follow up with your Primary Care Physician in: 1 WEEK. Please Follow Up With: Adarsh Man MD When: 2 WEEKS. Disposition: Home Minutes spent on discharge:: 33 Patient Condition:: Stable Medical Necessity - Tobacco Use Smoking Status: Never smoker Meaningful Use Info Meaningful Use Diagnoses (Choose all that apply): AMI - AMI/Post PCI/Angioplasty Aspirin given w/in 24hrs of arrival?: Yes ASA at discharge?: Yes Antiplatelet Therapy at Discharge:: Yes Statins at discharge?: Yes Dave/ARB at discharge?: No Reason Dave/ARB not ordered:: Not indicated Beta Andrea at discharge?: Yes Done w/ Acute CT measure.: Yes Documented LVEF (%): 65 Inpatient E&M: [id number] Disch Hosp
[2020-11-27 10:33] VITALS: BP 93/58; PULSE 66; RESP 18; TEMP 36.2; O2SAT 97
--- NOTE | 2020-11-27 10:53 | PHA.DC.MC ---
Pharmacy Service has performed discharge medication reconciliation and counseling for this patient. 1. ASPIRIN 81MG PO DAILYCM 2. METOPROLOL TARTRATE 12.5MG PO BID 3. LEVOFLOXACIN 750MG PO DAILY X 5 DAYS 4. TICAGRELOR 90MG PO BID The patient's discharge medication list was reviewed for discrepancies and discrepancies were resolved. Home Medications atorvastatin 10 mg tablet 10 mg PO QHS tab 01/13/18 multivitamin with iron 1 tab PO DAILY 08/03/18 carboxymethylcellulose sodium 0.5 % eye drops 1 drp OPHTHALMIC 4-8XD PRN 08/31/18 alendronate 70 mg tablet 70 mg PO QWEEK 01/16/19 psyllium husk 3.4 gram/5.4 gram oral powder 1 tbsp PO DAILY 09/17/19 Cholecalciferol (Vitamin D3) [Vitamin D3] 50 mcg PO 11/25/20 Aspirin [Aspirin, Baby] 81 mg PO DAILY@0800 #90 tab.chew 11/27/20 Metoprolol Tartrate [Lopressor (beta rogelio)] 12.5 mg PO BID #90 tab 11/27/20 Ticagrelor [Brilinta] 90 mg PO BID #90 tab 11/27/20 levoFLOXacin tablet [Levaquin tablet] 750 mg PO DAILY #5 tab 11/27/20 The patient was counseled on the following discharge medications and changes in medications for homegoing were reviewed. The Reason for Use, instructions for use, and potential side effects were reviewed for all new medications. The patient's questions regarding all of their medications were answered. The patient was able to verbally demonstrate an understanding of their discharge medications. Patient counseled by graduate student instructorBen.
--- NOTE | 2020-11-27 12:18 | CASEMGMT ---
Pt was already provided with Brilinta coupon card and call to [facility] to check on co-pay and per pharmacist, pt's co-pay at this time is $449.67 and most likely deductible to be met. Pharmacist aware that pt has co-pay card at this time. Sherie SHEA CM
--- NOTE | 2020-11-28 14:15 | CASEMGMT ---
SHABBIR MARINELLI Discharge F/U Phone Call LACE: Thomas Strata: 3 Discharge date: 11/27/20 Call date: 11/28/20 Call time: [phone] Admission dx: Chest pain, r/o PA Pt states has been doing 'good' since discharge. Pt states no questions regarding discharge instructions/medications at this time. Pt does ask about cardiac rehab and if they can send her information regarding their program. Pt provided with contact number for cardiac rehab at this time, voices gratitude. Pt does state that they paid out of pocket for the Brilinta as forgot to take coupon card to pharmacy. This SHABBIR MARINELLI advised them that per pharmacy there was deductible and either way she will likely have to pay at some point. Pt advised they can take card back to get refund at this time or use for coupon card for another month, voices understanding. Pt states plans to f/u with PCP and cardiology and will call cardiac rehab. Pt voices no further questions/concerns/needs at this time and thanks SHABBRI MARINELLI for call. SStclaudio SHEA CM
--- NOTE | 2020-12-03 17:14 | PCM.PN.BLA ---
Progress Note This is an addendum note. The patient was evaluated by me post intervention. Patient well-known to me in the clinic as well as the hospital. All the serial EKGs from the ED as well as in the PCU were evaluated as well as the history. There was dynamic changes noted on the EKG suggestive of acute pericarditis. It appears that this was the primary diagnosis. The cardiac catheterization findings were incidental. The final diagnoses therefore in this case was acute pericarditis with coronary artery disease. There is no evidence of an ST elevation myocardial infarction.
== END 2020-11-27 12:10 | disposition home or self-care (01) | DRG 246 ==
LOC: ED 05:11 → PCU 06:53 → ICU 22:53 → PCU 11-26 16:32
PROVIDERS: Admitting Provider Family Medicine; Emergency Provider Student in an Organized Health Care Education/Training Program; PCP Family Medicine; Visit Provider Hospitalist
DX: I21.19 ST elevation (STEMI) myocardial infarction involving other coronary artery of inferior wall (principal); J18.9 Pneumonia, unspecified organism; E78.2 Mixed hyperlipidemia; I10 Essential (primary) hypertension; G47.33 Obstructive sleep apnea (adult) (pediatric); E66.9 Obesity, unspecified; E78.5 Hyperlipidemia, unspecified; I48.0 Paroxysmal atrial fibrillation; M85.80 Other specified disorders of bone density and structure, unspecified site; G62.9 Polyneuropathy, unspecified; I34.0 Nonrheumatic mitral (valve) insufficiency; I36.1 Nonrheumatic tricuspid (valve) insufficiency; I25.10 Atherosclerotic heart disease of native coronary artery without angina pectoris; Z68.32 Body mass index [BMI] 32.0-32.9, adult; Z85.3 Personal history of malignant neoplasm of breast; Z87.440 Personal history of urinary (tract) infections; Z90.49 Acquired absence of other specified parts of digestive tract; Z98.84 Bariatric surgery status; Z79.01 Long term (current) use of anticoagulants; Z79.899 Other long term (current) drug therapy
CPT/HCPCS: 36415; 71045; 71275; 80048; 80061; 80076; 84443; 84484; 85025; 85048; 87070; 87205; 87635; 92921; 92928; 93005; 93306; 93454; 99152; 99153; 99285; 99406; J7030; J7040; J7050; Q9957; Q9967; A4216; C1725; C1769; C1874; C1887; C1894; C8929; C9600; J2405; U0002

== ENCOUNTER → 2020-12-05 13:03 | Outpatient (CLI) | payer MEDICARE, SELFPAY ==
[2020-11-25 08:04] VITALS: BMI 31.8
--- NOTE | 2020-12-05 13:07 | PCM.CR.ITP ---
Diagnosis - General Information Admitting Diagnosis: STEMI S/P PCI w/coronary stenting Personal Learning Style:: Audio/Visual, Written Barriers to Learning: Vision Impairment Stage of change r/t lifestyle modifications:: Contemplation Gave educational material for:: Treating Heart Disease, Emotions & Heart Disease, Stress Management & Relaxation, Sleep Disorders & Heart Disease, How The Heart Works, What it means to have Heart Disease, How Coronary Artery Disease is Diagnosed, Heart Procedures, What Heart Medications Do, Risk Factors & Modifications, Living an Active Life, Nutrition - Education/Goals Individual Counseling: Initial Assessment: Abnormal Cholesterol Levels, High Blood Pressure, Overweight/Obesity Cardiac Rehabilitation Goals: 1. Maintain the individual as the primary focus of care. 2. To improve the patient's quality of life. 3. Identification of cardiac risk factors and provide cardiac risk factor management. 4. Enhance the psychosocial status of the patient. 5. Reconditioning enough to allow the patient to resume customary activities. 6. Control symptoms of cardiac disease Personal Goals: Initial Assessment: Improve energy level, Participate in home exercise program, Improve muscle strength and endurance Scale for measuring improvement of personal goals: Enter appropriate number in Comments. 2 = Unchanged. 3 = Slightly Better. 4 = Moderate Improvement. 5 = Met my Goal - Diagnosis & Disease Process Outcomes/Goals: Pt IDs own risk factors & lifestyle modifications by Session 10, Verbalizes symptoms of angina & response by session 3., Pt independently manages Plan/Interventions: Assist Pt to ID & engage in lifestyle modification to reduce CVD risk, Instruct on individual risk factors, Review symptoms of angina & emergency actions, Review secondary diagnosis & identify educational needs. - Safety Referral to Physical Therapy: No Referral to [facility] Case Management: No Fall Risk Assessed:: Yes Assistive Devices:: Walker - uses walker around home for stability, Wheelchair - oinly requires wheelchair for long distances or long standing periods. Exercise - Initial Assessment - Visit Date of Eval: 12/05/20 Session #:: 0 - pre-cardiac rehab Mets: Pre-: >5 METS for 30 minutes by discharge - Physician Prescribed Exercise Modalities: NuStep, SciFit Frequency: 3x/week for 12 weeks [36 sessions] Intensity: 60-80% of age predicted maximum heart rate reserve Current METSs:: 2.5 Target Heart Rate:: 96-125 EKG Type: normal sinus rhythm with H/O Paroxysmal atrial fib - Outcomes & Goals Goals:: Verbalizes understanding of THR, RPE & goal METS by session 6, Documents in home exercise log/reports 30 min aerobic 5 day/wk by DC, Demonstrates accurate pulse taking by DC - Intervention & Plan Exercise Program Goals: Instruct on personal THR & RPE, Instruct on MET level & personal MET goal, Show patient to take own pulse /validate performance until accurate, Instruct on home exercise - Physical Activity Home Exercise Physical Activity - Home Exercise: Safe Exercise, Warm-up, Self-monitoring, Cool-Down, Home Exercise > 30 min Daily, Sitting Time <3 hours/daily - Outcomes & Goals Outcomes/Goals: Demonstrates correct Warm-up/exercise Cool-Down (S3) if = 2.5 METs, Verbalizes symptoms of exercise intolerance by Session 3 (S3), Demonstrate safe equipment use (S3) & follows exercise prescrition (6) - Intervention & Plan Plan/Intervention: Instruct warm-up & cool-down if exercising at > 2 METs, Instruct on symptoms of exercise intolerance & actions to take, Instruct & monitor on saf, Assess intial functional capacity & safety risk Nutrition - Initial Assessment - Program Goals Nutrition Program Goals: LDL <100 optimal. 100 - 129 Near optimal. 130 - 159 Borderline High. 160 - 189 High. Total Cholesterol <200 desirable. 200 - 239 Borderline High. >/= 240 High. HDL < 40 Low >/=60 High. Triglycerides <150 desirable. <199 optimal. VlDL 5 - 40. HgbA1C <7%. BMI <25 Patient has diagnosis of Hyperlipidemia (ICD E78)?: Yes - Visit Date of Assessment:: 12/05/20 Session #:: 0 - pre-cardiac rehab - Cholesterol/Lipids Triglycerides (mg/dL): 76 - 11/25/2020 Total Cholesterol (mg/dL): 111 LDL Cholesterol (mg/dL): 53 HDL Cholesterol (mg/dL): 43 Determine presence & major risk factors that modify LDL goal: Hypertension or hypertensive medication, Age men > 45 years; women >/= 55 years Outcomes/Goals: Pt IDs own risk factors & lifestyle modifications by Session 10, Verbalizes symptoms of angina & response by session 3., Pt independently manages Intervention/Plan: Instruct on personal lipid levels & lipid goals/NCEP guidelines, Instruct on cholesterol Referral to dietitian:: Yes - Diabetes (Other Core Measures) Diabetes Type: Not Applicable - Weight Mgt (Other Care) Not Applicable: No Height: 5 ft 3 in Weight:: 179 lb 1.6 oz - Previous bariatric gastic sleeve procedure BMI: 31.7 Diagnosis Overweight/Obesity BMI> 30% ICD-10 E66: Yes Diagnosis High BMI/Morbid Obesity BMI> 35% ICD-10 Z68: No Outcomes/Goals: Pt sets, maintains & shows weight loss goal & trend during rehab Intervention/Plan: Instruct on ideal BMI & set weight loss goal w/patient, Assist pt to ID & incorporate diet changes for weight loss by S9, Refer to Structured Weight Loss program as appropriate, Encourage goal of using 250-300dcal per session for weight loss - Healthy Eating Habits Will attend diet classes:: Yes Outcomes/Goals:: Consume diet rich in vegs,fruits,whole grain/high fiber,fish,lean meat, Limit sat/trans fats,cholesterol & added salts & sugars Intervention/Plan:: Assess current eating habits Medical - Initial Assessment - Visit Date of Eval: 12/05/20 Session #:: 0 - pre-cardiac rheba - Medication Compliance Preventative Medication(s):: Aspirin, Ticagrelor/P2Y12 inhibitor, Statin/lipid, Beta rogelio H/O mental health issues: depression, anxiety, or addiction?: No Doesn?t believe in the benefits of treatment?: No Believes medications are unnecessary or harmful?: No Has a concern about medication side effects?: No Expresses concern over the cost of medications?: No Outcomes/Goals: Verbalizes medications,desired effect & common side effects @ DC, Pt self-reports following medication regimen, Keeps card in wallet w/medications listed by DC Interventions/plans: Instruct on medication effects & side effects, Review medication list w/patient every two weeks, Instruct importance of taking meds as ordered & assist problem solving - Tobacco Use Tobacco Use: Non-smoker - Hypertension Hypertension Diagnosis:: Hypertension ICD-10 I10 Resting Blood Pressure:: 117/64 English Heart Association Hypertension Guidelines: English Heart Association Hypertension Guidelines. Normal BP Less than 120/80. Elevated BP 120/80. Hypertension Stage 1: BP 130-139/80-89. Hypertesnion Stage 2: BP 140 or higher/90 or higher. Hypertension Crisis: BP higher than 180/120 Outcomes/Goals: Able to verbalize/achieve optimal blood pressure <130/80, Incorporates diet changes & exercise for blood pressure control by DC Interventions/plan: Instruct on optimal blood pressure, hypertension & medications, Instruct on effects of sodium, alcohol, stress, exercise &hypertension - Tobacco Cessation Referral Smoking Cessation Referral:: No Individual Education/Counseling:: No Education Schedule Given:: Yes Psychosocial - Initial Assess - VIsit Date of Eval: 12/05/20 Session #:: 0 - pre-cardiac rehab Not Applicable: Yes History of previous Mental disease:: No - Target Goals Target Goals: Assess presence or absence of depression. Using a valid screening tool, maximizes coping skills. Positive support system - Psychosocial Test Tool Used:: Sinan Squires QOL Cardiac, PHQ-9 Questionnaire phq-9 Severity: Severity. 1-4 Minimal Depression. 5-9 Mild Depression. 10-14 Moderate Depression. 15-19 Moderately Sever Depression. 20-27 Severe Depression. Rule: - Referral to Behavioral Health PS - Interventions: Yes Attend Stress Management Classes, No Referral to Behavioral Health if PHQ-9 score >9:, No Referral to [facility], No Referral to Physician if PHQ-9 if score is 5-9: - Outcomes/Goals: See list Psychosocial Outcomes/Goals:: ID's personal stressors & 2 strategies to manage stress by discharge - Intervention/Plan: See List Interventions/Plan:: Assess stressors,coping strategies & signs of derpression on admission, Instruct/assist pt to develop coping & personal stress Mgt strategies, Instruct patient to recognize signs & symptoms of depression, Instruct patient to recog Patient Health Questionnaire Initial Assessment 1. Little interest or pleasure in doing things: More than half the days 2. Feeling down, depressed, or hopeless: More than half the days 3. Trouble falling or staying asleep, or sleeping too much: Several days 4. Feeling tired or having little energy: Nearly every day 5. Poor appetite or overeating: Several days 6. Feeling bad about yourself -- or that you are a failure or have let yourself or your family down: Not at all 7. Trouble concentrating on things, such as reading the newspaper or watching television: Not at all 8. Moving or speaking so slowly that other people could have noticed. Or the opposite - being so fidgety or restless that you have been moving around a lot more than usual: Not at all 9. Thoughts that you would be better off , or of hurting yourself in some way: Not at all How difficult have these problems made it for you to do your work, take care of things at home, or get along with other people?: Somewhat difficult Total Score: 9 NOE-Q SV Test - Statements CAD is a disease of the arteries in the heart: False Examples of risk factors for heart disease: True Angina is chest pain or discomfort: I Don't Know The benefits of resistance training include: I Don't Know Eating more meat and dairy products: False Anti-platelet medications such as aspirin are important: True The only effective way to manage stress: False An exercise warm-up slowly increases heart rate: I Don't Know Prepared, processed foods usually have high sodium: True Depression is common after a heart attack: I Don't Know The statin medications lower cholesterol: I Don't Know To control blood pressure, lower the amount of sodium: I Don't Know If someone gets chest discomfort during walking: I Don't Know Transfats are partially hydrogenated vegetable oils: False Sleep apnea that is not treated increases the risk: True To control cholesterol, one should become a vegetarian: False Someone knows if he/she is exercising at the right level: False Diabetes cannot be prevented with exercise & health eating: I Don't Know Stress is a large risk for heart attack: True A diet that can help lower blood pressure is rich in: True - Total Score Total Correct Responses: 9 Self-Efficacy Initial Assessment We would like to know how confident you are in doing certain activities. Please select your confidence level for:: Select your confidence level for the following using the scale 1-10 where 1 is not at all confident and 10 is totally confident. Your score is the average of all 6 responses. Fatigue: How confident are you that you can keep the fatigue caused by your disease from interfering with the things you want to do? Select Number: 1 Physical Discomfort or Pain: How confident are you that you can keep the physical discomfort or pain of your disease from interfering with the things you want to do? Select Number: 1 Emotional Distress: How confident are you that you can keep the emotional distress caused by your disease from interfering with the things you want to do? Select Number: 4 Other Symptoms or Health Problems: How confident are you that you can keep other symptoms or health problems from interfering with the things you want to do? Select Number: 1 Different Tasks and Activities: How confident are you that you can do the different tasks and activities needed to manage your health condition so as to reduce your need to see a doctor? Select Number: 5 Medication: How confident are you that you can do things other than just taking medication to reduce how much your illness affects your everyday life? Select Number: 5 Total Score:: 2 Nutrition Survey - Nutrition Survey Instructions Scoring Instructions: Scoring is as follows: Yes = 1 points. No = 0 point. Patient score that is >/=12 is considered to be at potential nutritional risk and could benefit from a referral to a registered dietitian. - Nutrition Survey Discharge Have you lost >10 lbs over the past 2 months without trying?: Yes Are you following a special diet at home for diabetes, low fat, or low salt?: No Are you interested in meeting with a dietitian for help understanding your diet?: Yes Do you eat less than 3 meals a day?: No Do you eat fatty meats (harmon, sausage, ribs, etc), fried foods, desserts, large amounts of salad dressings, margarine, butter, or cheese most days?: No Do you have food allergies? [Enter types in comment field]: No Do you eat in restaurants more than 3 times a week?: No Do you season food with salt, seasoning salt, or garlic salt?: No Do you used canned, boxed, frozen meals, or soups, seasoning packets?: Yes Total Score:: 3
--- NOTE | 2020-12-05 13:07 | PCM.CR.HP2 ---
CR - History & Physical - General Arrival date:: 12/05/20 Arrival time:: 13:11 Date of Referral:: 11/26/20 Date of CR Evaluation:: 12/05/20 Referring Physician: Dr. Adarsh Man Primary Diagnosis: STEMI, PCI w/coronary stent - History of Present Cardiac Event Onset Date: Enter Onset Date of cardiac illnesses in Comment field below Acute Myocardial Infarction within 12 months:: Yes - STEMI 11/25/2020 PTCA or coronary stenting:: Yes - PCI w/stent 11/25/2020 Type of Symptoms:: Admitted to [facility] with bilateral pneumonia, and chest pressure around 7:30 am. Previous had arrived in the emergency room with heavy pressure in the chest on the right side, by x-ray found her bronchitis had developed in to a pneumonia. Previous ablation for A-fib no other prior hearet disease. Interventions with present event:: Admitted began having severe chest pressure, nauseated, diaphoretic; STEMI - Medications Home Medications: Ambulatory Orders Medication Instructions Recorded atorvastatin 10 mg tablet 10 mg PO QHS tab 01/13/18 multivitamin with iron 1 tab PO DAILY 08/03/18 carboxymethylcellulose sodium 0.5 1 drp OPHTHALMIC 4-8XD PRN 08/31/ % eye drops alendronate 70 mg tablet 70 mg PO QWEEK 01/16/19 psyllium husk 3.4 gram/5.4 gram 1 tbsp PO DAILY 09/17/19 oral powder Cholecalciferol (Vitamin D3) 50 mcg PO 11/25/20 [Vitamin D3] Aspirin [Aspirin, Baby] 81 mg PO DAILY@0800 #90 tab.chew 11/27/20 Metoprolol Tartrate [Lopressor 12.5 mg PO BID #90 tab 11/27/20 (beta rogelio)] Ticagrelor [Brilinta] 90 mg PO BID #90 tab 11/27/20 levoFLOXacin tablet [Levaquin 750 mg PO DAILY #5 tab 11/27/20 tablet] - Allergies Allergies/Adverse Reactions: Allergies No Known Allergies Allergy (Verified 11/25/20 04:01) - Sleep Disorder Evaluation Hx of Sleep Apnea: No Do you snore loudly (louder than talking or can be heard through closed doors)?: Yes - Has a diagnosis of OXANA buy patient discredits this diagnosis. Do you often feel tired/ fatigued/ sleepy during daytime?: Yes Has anyone observed you stop breathing during sleep?: No History of Hypertension (for STOP score): Yes STOP Results: Positive Advanced Directives - Advanced Directives Power of [place] [employer]ch: Yes Living Will: Yes Advance Directives Information Provided: No Advance Directives on File: No DNR Order?:: No - MOLST See MOLST form: No Past Medical History - Covid-19 Screening Fever: No Unexplained muscle aches: No Current respiratory symptoms: No Upper respiratory infections symptoms: No Gastro-intestinal symptoms: Yes Jhn-Ilsi-Luambo symptoms: No Has tested positive for COVID-19 in last 30 days: No Had contact w/person w/symptoms or Covid-19 (+) last 14 days: No Has High Risk Exposures ID'd by Health dept/Inf Control team: No 65 years or older:: Yes Lives in Assisted Living facility:: No Has a chronic lung disease or moderate to severe asthma:: No Has a serious heart condition:: Yes Immunocompromised:: Yes Severely obese (Body Mass Index of 40 or higher):: No Diabetic:: No Has chronic kidney disease undergoing dialysis:: No - Past Medical Illness Medical History: Past Medical History (Last Updated 11/26/20 @ 16:34 by Makenna Milner) Atherosclerotic heart disease of [place] coronary artery without angina pectoris (Chronic) I25.[address] elevation myocardial infarction (Acute) Onset Date: 11/25/20 I21.3 History of breast cancer (Chronic) Z85.3 Mixed hyperlipidemia (Chronic) E78.2 Essential (primary) hypertension (Chronic) I10 OXANA (obstructive sleep apnea) (Chronic) G47.33 Nonrheumatic mitral (valve) insufficiency (Chronic) I34.0 Mild per ecoh 03/23/18 Nonrheumatic tricuspid (valve) insufficiency (Chronic) I36.1 mild per echo 18 Paroxysmal atrial fibrillation (Chronic) I48.0 GERD (gastroesophageal reflux disease) K21.9 Impaired fasting blood sugar R73.01 Neuropathy G62.9 Osteopenia M85.80 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 Vitamin deficiency E56.9 Chronic rhinitis J31.0 Breast cancer (Inactive) C50.919 - Past Surgical History Surgical History: Past Surgical History (Last Updated 11/26/20 @ 16:34 by Makenna Milner) History of coronary artery stent placement (Acute) Onset Date: 11/25/20 Z95.5 PCI-ADELITA-Mid LAD w/ 2.5 x 18 mm resolute Bola Stent and POBA-Ostium of D1 11/25/2020 H/O mastectomy (Inactive) Z98.890, Z90.10 History of adjustable gastric banding (Inactive) Z98.84 History of appendectomy (Inactive) Z98.890, Z90.49 History of cataract surgery (Inactive) Z98.49 History of left heart catheterization (Inactive) Onset Date: ~05/15/08 Z98.890 History of tonsillectomy (Inactive) Z98.890, Z90.89 Surgical History: noncontributory - Family History Summary Family History: Family History (Last Reviewed 10/16/19 @ 11:[address] Ty Johnson MD) Father Heart disease Colon cancer Mother Breast cancer CVA (cerebral vascular accident) Grandmother CVA (cerebral vascular accident) Brother Diabetes Social History - Smoking History Smoking Status: Never smoker - Occupation Occupation (List type of work in comments):: Retired - Hobbies, Recreation, Social Activities Hobbies: Sewing - embroidery , Reading, Exercise - water aerobics at [facility] [employer] for about 16 years until COVID-19., Other Social Environment - Status Marital Status: - Current Living Arrangements Living Environment:: Spouse - Children How many children do you have?: 3 Do any of your children live nearby?: No - Safety Do you feel safe in your surroundings?: Yes Review of Systems - Review of Systems Hints: Right click = Denies (Slash). Left click = Reports ([place]) Review of Present Symptoms: Reports: Shortness of Breath with Exertion, Fatigue, Heart Arrhythmia/Irregularities - H/O atrial fibrillation in 2019 had ablation procedure that has corrected the arrythmia., Appetite - Normal, Sleep - Normal - now it is.. Denies: Shortness of Breath at Rest, Angina, Dizziness/Lightheadedness, Appetite - Special Diet - Pain Is Patient Pain Free?: Yes Pain Location: none Pain Level: 0/10 Risk Factor Assessment - Chief Complaint Chief Complaint: Anastasia is a [address] Man who presentst ot cardiac rehab today following recent hospitalization at [facility]. During her stay she experienced a ST elevated myuocardial infarction and was taken to the director of cardiac cath lab for stent placement. - Vital Signs Temperature: 97.7 F Respiratory Rate: 17 Pulse Ox: 97 Blood Pressure: 117/64 - Pulse Pulse Rate: 78 - EKG normal sinus rhythm Pulse Rhythm: Regular - Hypertension Blood Pressure Sitting - Left Arm: 117/64 - Stress Stress: Recent - Blood Cholesterol/Lipids Total Cholesterol (mg/dL) Goal = less than 200 mg/dL: 111 - 11/25/2020 HDL Cholesterol (mg/dL) Goal = less than 40 mg/dL: 43 LDL Cholesterol (mg/dL) Goal = less than 70 mg/dL: 53 Triglycerides (mg/dL) Goal = less than 150 mg/dL: 76 - Diabetes Nutrition Referral for Diabetes: No - Obesity Height: 5 ft 3 in Weight:: 179 lb 1.6 oz Weight in Pounds: 179.1 lbs Weight Source: Standing Scale Body Mass Index (BMI): 31.7 Nutritional Referral for Obesity: No - Patient previously had gastic sleeve procedure for weight loss. - Physical Inactivity Physical Inactivity: None - For Smoking Smoking Risk Guidelines: Smoking Low Risk: None or quit greater than 6 months ago. Smoking Moderate Risk: Smoker or quit 6 months or less ago. Smoking High Risk: Smoker - For Dyslipidemia Dyslipidemia Risk Guidelines: Low Risk: Moderate Risk: High Risk: 15-25% fat 25.1-29% fat >/= 30% fat. <7% sat fat 7-9% sat fat >9% sat fat. <150 mg chol 150-299 mg chol >/= 300 mg chol. LDL <100 LDL 100-129 LDL >/= 130. Chol/HDL ratio <5.0 Chol/HDL ratio 5.0-6.0 Chol/HDL ratio >6.0. Triglycerides <100 Triglycerides 100-149 Triglycerides >/= 150 - For Diabetes Mellitus Diabetes Risk Guidelines: Diabetes Low Risk: HgA1c <6.5% and/or FBG <120. Diabetes Moderate Risk: HgA1c 6.6-7.9% and/or FBG 120-180. Diabetes High Risk: HgA1c >/= 8% and/or FBG >180 - For Obesity/Overweight Obesity/Overweight Risk Guidelines: Obesity Low Risk: BMI <25.0. Obesity Moderate Risk: BMI 25-29.9. Obesity High Risk: BMI >/= 30.0 - For Hypertension Hypertension Risk Guidelines: Hypertension Low Risk: Systolic <120 and Diastolic <80. Hypertension Moderate Risk: Systolic 120-139 and Diastolic 80-89. Hypertension High Risk: Systolic >/= 140 and Diastolic >/= 90 - For Sedentary Lifestyle Sedentary Lifestyle Risk Guidelines: Sedentary Lifestyle Low Risk: >/= 1,500 kcal/week. Sedentary Lifestyle Moderate Risk: 700-1,499 kcal/week. Sedentary Lifestyle High Risk: < 700 kcal/week - For Depression Depression Risk Guidelines: Depression Low Risk: Not clinically depressed. Depression Moderate Risk: Mildly depressed. Depression High Risk: Clinically depressed - Family History Family History: Family History (Last Reviewed 10/16/19 @ 11:[address] Ty Johnson MD) Father Heart disease Colon cancer Mother Breast cancer CVA (cerebral vascular accident) Grandmother CVA (cerebral vascular accident) Brother Diabetes Motivation - Motivation to Participate On a scale of 1 to 10, how prepared are you to commit to attending program?: 10 What do you see as barriers to successfully being able to complete the program?: ambulation for long periods of time What do you see as the benefits of succesfully completing the program? In other words, what do you hope to get out of participating in the program?: being healthier, back to a normal life. Are there issues you are dealing with that will interfere with completing the program?: none Do you have a spouse or signficant other, family or friends who will help support you to complete the program?: yes.
[2020-12-05 13:37] VITALS: BP 117/64; PULSE 78; RESP 17; TEMP 36.5; O2SAT 97; BMI 31.7
[2020-12-05 14:34] VITALS: BP 117/64; BMI 31.7
== END ==
PROVIDERS: PCP Family Medicine; Referring Provider Internal Medicine Cardiovascular Disease; Visit Provider Internal Medicine Cardiovascular Disease
DX: I25.10 Atherosclerotic heart disease of native coronary artery without angina pectoris (principal); I25.2 Old myocardial infarction; Z85.3 Personal history of malignant neoplasm of breast; E78.2 Mixed hyperlipidemia; I10 Essential (primary) hypertension; G47.33 Obstructive sleep apnea (adult) (pediatric); I34.0 Nonrheumatic mitral (valve) insufficiency; I48.0 Paroxysmal atrial fibrillation; K21.9 Gastro-esophageal reflux disease without esophagitis; G62.9 Polyneuropathy, unspecified; M85.80 Other specified disorders of bone density and structure, unspecified site; Z79.899 Other long term (current) drug therapy; Z79.82 Long term (current) use of aspirin

== ENCOUNTER 2020-12-08 15:52 | Emergency (ER) | payer MEDICARE, SELFPAY ==
[2020-12-05 13:37] VITALS: BMI 31.7
[2020-12-05 14:34] VITALS: BMI 31.7
[2020-12-08 15:53] VITALS: BP 144/93; PULSE 86; RESP 18; TEMP 36; O2SAT 96; BMI 30.4
--- NOTE | 2020-12-08 16:17 | EKG12_ITS ---
Test Reason : SOB CP Blood Pressure : / mmHG Vent. Rate : 079 BPM Atrial Rate : 079 BPM P-R Int : 182 ms QRS Dur : 094 ms QT Int : 404 ms P-R-T Axes : 041 014 -12 degrees QTc Int : 463 ms Normal sinus rhythm Minimal voltage criteria for LVH, may be normal variant ST & T wave abnormality, consider anterolateral ischemia Abnormal ECG Confirmed by MURPHY JACINTO, RYAN ([id number]), newspaper or periodical editor KATI ZEPEDA ([id number]) on 12/10/2020 1:25:48 PM Referred By: MARYAM Confirmed By:RYAN ARRINGTON MD
[2020-12-08] MEDS: Ondansetron 4 MG/2 ML Vial IV (16:23)
[2020-12-08] MEDS: Morphine 4 MG/ML Syringe IV ×2 (16:23→18:27)
[2020-12-08 16:28] LABS: Absolute Lymphocyte Count 2.49 X10^3/uL (0.83-4.51); Absolute Neutrophil Count 9.1 X10^3/uL (2.0-7.7); Basophil# 0.08 X10^3/uL; Basophil% 0.6 % (0-1); Hematocrit 37.8 % (37-47); Hemoglobin 12.5 g/dL (12.0-15.0); Lymphocyte # 2.49 X10^3/ul (4.0); Lymphocyte % 18.5 % (19-41); Mean Corp Hgb Conc 33.1 g/dL (32-36); Mean Corpuscular Hgb 28.1 pg (27.0-32.0); Mean Corpuscular Volume 84.9 fL (81-99); Monocyte# 1.24 X10^3/uL; Monocyte% 9.2 % (0-10); NRBC Flagged by Analyzer 0 % (0-5); Neutrophil # 9.09 X10^3/uL (2.7-7.7); Neutrophil % 67.7 % (47-70); Platelet Count 603 K/mm3 (150-450); RBC Distribution Width CV 16.9 % (11.6-14.6); RBC Distribution Width SD 47.4 fl (35.1-43.9); Red Blood Count 4.45 M/mm3 (4.2-5.4); White Blood Count 13.4 K/mm3 (4.4-11.0)
--- NOTE | 2020-12-08 16:32 | ED.VISSUMM ---
- ER Visit Summary Date of Service: 12/08/20 Chief Complaint: Shortness of breath History of Present Illness: The patient is a [address] Man and Dr. Shepherd. On November 25 she was admitted to the hospital and had a heart catheterization for EKG changes concerning for STEMI. She had a 90% mid LAD lesion stented. However, was felt ultimately that this was not the cause of her chest pain and that she had pericarditis. Patient had a CTA of the chest that showed right upper lobe infiltrate and was on Levaquin in the hospital and discharged on 5 days of Levaquin which she is finished. Patient reports that she has shortness of breath began yesterday. Is moderate worst mild currently. Is worsened by exertion. It is unchanged with laying flat. States that the chest pain as a stabbing pain is on the right side of the chest that is brought on only with deep breaths. She states that it is relieved by bending toward that side to compact her ribs on that side. She denies any fever or chills. She does have an occasional cough. She denies sick contacts. She does wear a mask. Physical Examination: Vitals: Stable. Afebrile. General: Well-nourished and well-developed. Head: Normocephalic atraumatic. Neck: Supple, no lymphadenopathy. No JVD. Nontender. Cardiovascular: Regular rate and rhythm. No murmurs. Respiratory: No respiratory distress. Clear to auscultation bilaterally. Abdominal: Soft, nontender, nondistended, normal bowel sounds. No guarding, rebound, or peritoneal signs. Back: Nontender. Extremities: Nontender, no edema. Skin: Normal color, no rash. Neurologic: Alert and oriented ?3. Cranial nerves II through XII are intact. Normal strength and sensation. Psych: Normal affect. Test Results: EKG is sinus at [address] changes. She does have T wave inversions in leads V3 to V6 as well as lead I. This is a change from November 262020. Troponin is less than 0.015. D-dimer is 3.41. Chem-7 shows a sodium 135 and glucose 144. CBC shows a white count of 13.4, platelets of 603, lymphocytes of 19, immature granulocytes 1.0%. Covid 19 rapid antigen is negative. LFTs show an alk phos of 145, albumin of 2.6, globin of 5.3. Lipase is 78. Alk phos was 135 on November 25. Clinical Impression(s) from Imaging Studies Chest X-Ray 12/08/20 16:34 IMPRESSION: No active disease. Electronically Signed: Que Boo MD at 16:44 EST Tel , Service support , Chest CTA 12/08/20 17:13 IMPRESSION: 1. No CT evidence of pulmonary embolism.. 2. No change in multiple subpleural nodules in correlation with PET CT scan is recommended if never performed. Follow-up CT the chest is recommended in 6 months document stability. Electronically Signed: Que Boo MD at 17:59 EST Tel , Service support , Abdomen Ultrasound 12/08/20 18:15 IMPRESSION: 1. Cholelithiasis without sonographic evidence for cholecystitis. Positive sonographic Betancur sign, correlate clinically. 2. Suboptimal evaluation of pancreas. at 1928 Reported and signed by: Lavell Garrido MD Electronically Signed: Lavell Garrido MD at 19:26 EST Tel , Service support , Emergency Department Course and Treatment: Patient had an IV placed. She is given morphine and Zofran IV. Patient reports that the morphine worked transiently and then her pain returned. She was given another dose of morphine and a dose of Toradol IV. Repeat abdominal exam is benign. Soft, nontender, nondistended. Normal bowel sounds. She specifically has no tenderness palpation in the right upper quadrant. She has a negative Betancur sign. Treatment Plan: Patient was discussed with Dr. Man and he asked that she be placed on ibuprofen 400 mg 3 times daily for the next 3 or 4 days. She is given a prescription for Prilosec in addition to this. The patient was discussed with Dr. Diez who has reviewed the labs and the ultrasound. The patient is recently placed on Brilinta for a stent and would not be a good surgical candidate. On my exam the patient has no pain with palpation of the right upper quadrant. I do not think that the gallstones are the source of her pleuritic right-sided chest pain that she came to the emergency department for. She will be given a prescription for Chadwick and instructed to follow-up with Dr. Diez in the next 2 days for further evaluation. Return to the emergency department for any worsening symptoms. Disposition: To home in improved and stable condition. Impression: 1. Atypical chest pain. 2. Heart score of 2. 3. Recent history of pericarditis. 4. Subpleural nodules. 5. Gallstones. This note was generated with [employer] dictation software. It may contain incorrect words, spelling, and punctuation that were not noted in review of the chart prior to signing ED Disposition - Plan for ED Patient: Instructions: ED Pericarditis, ED Pulmonary Nodule, Solitary, Gallstones Prescriptions: Ibuprofen 400 mg PO TID #12 tab Prescription Printed Hydrocodone Bitart/Apap 5-325 [Chadwick 5MG-325MG] 1 tablet PO Q4H PRN PRN 2 Days #10 tablet PRN Reason: Pain Omeprazole [Prilosec] 20 mg PO DAILY #30 cap Prescription Printed Ondansetron [Zofran Odt] 4 mg PO Q8H PRN PRN #10 tablet PRN Reason: Nausea Referrals: Adarsh Man MD [STAFF PHYSICIAN] - Keep Joe appointment Clive Shepherd DO [Primary Care Provider] - 3-5 Days if not improving Mary Jo Diez MD [STAFF PHYSICIAN] - 2 Days
--- NOTE | 2020-12-08 16:34 | RAD_ITS ---
STUDY: X-RAY CHEST REASON FOR EXAM: Female, 70 years old. SOB AND CHEST PAIN X 2 DAYS. COUGH -- HX BREAST CA TECHNIQUE: Single AP portable view of the chest. COMPARISON: 11/25/2020 FINDINGS: The lungs are clear and expanded. Slightly elevated right hemidiaphragm which is unchanged. Normal size heart. Normal mediastinum and dana. Normal visualized pulmonary arteries. Normal visualized aortic arch and descending thoracic aorta. Normal visualized thoracic spine. Normal visualized ribs, clavicles, and shoulders. There is no demonstrated abnormality of the visualized soft tissue structures of the upper abdomen. RAD/Chest 1 View (Portable) IMPRESSION: No active disease. Electronically Signed: Que Boo MD at 16:44 EST Tel , Service support ,
[2020-12-08 16:41] LABS: Anion Gap 6 (5-15); BUN 9 mg/dL (7-18); BUN/Creat Ratio 11.3 RATIO (10-20); Calcium,Total 9.2 mg/dL (8.5-10.1); Chloride 101 mmol/L (98-107); EST Glomerular Filtration Rate 75 mL/min (>60); Est Glom Filt Rate - Afr Amer 91 mL/min (>60); Estimated Creatinine Clearance 52.58 ml/min; Glucose 144 mg/dL (74-106); Potassium 3.5 mmol/L (3.5-5.1); Sodium Level 135 mmol/L (136-145)
[2020-12-08 17:13] LABS: D-Dimer Quantitative (DVT/PE) 3.41 FEU/ug/m (0.27-0.49)
--- NOTE | 2020-12-08 17:13 | CT_ITS ---
STUDY: CTA CHEST REASON FOR EXAM: Female, 70 years old. Chest pain, SOB x 2 days, cough. Hx breast cancer with right mastectomy, hypertension. afib, heart stents. RADIATION DOSAGE (If Supplied By Facility): CTDIvol = ( 9.88 ) mGy, DLP = ( 341.85 ) mGycm TECHNIQUE: The examination was performed with the intravenous administration of IV 75mL Isovue-370. Post-processing of the angiographic images was performed, with multiplanar reformation and 3D reconstruction. Individualized dose optimization techniques were used for this CT. COMPARISON: 11/25/2020 FINDINGS: Status post right axillary lymph node dissection. Normal enhancement of the main pulmonary artery and right and left pulmonary arteries. Normal enhancement of the bilateral peripheral pulmonary arteries. There is no demonstrated pulmonary embolism. Normal thoracic aorta and visualized great vessels. There is no demonstrated aortic dissection. Normal heart and pericardium. There are calcifications of the coronary arteries. Normal mediastinum. Normal hilar regions. Normal visualized trachea and bronchi. The lungs are well expanded. There is no change in 1 cm noncalcified nodule in the posterior lateral aspect of the apex of the left lung. There is another 1.2 cm of the cavitary nodule in the posterior aspect of the left upper lobe on image 145 there is also no change in 1 cm noncalcified nodule posterior right upper lobe lungs adjacent the major fissure on image 140. Other subpleural scarring. Some atelectasis in the azygos esophageal recess. Normal pleura. Normal chest wall structures. Normal osseous structures. Lap band device. CT/CTA Chest W/WO Contrast IMPRESSION: 1. No CT evidence of pulmonary embolism.. 2. No change in multiple subpleural nodules in correlation with PET CT scan is recommended if never performed. Follow-up CT the chest is recommended in 6 months document stability. Electronically Signed: Que Boo MD at 17:59 EST Tel , Service support ,
[2020-12-08 17:42] VITALS: BP 91/71; PULSE 70; RESP 22; O2SAT 95
[2020-12-08 18:10] VITALS: BP 116/68; PULSE 71; RESP 21; O2SAT 97
--- NOTE | 2020-12-08 18:15 | US_ITS ---
HISTORY: Abdominal pain COMPARISON: CT abdomen and pelvis 01/21/2015 TECHNIQUE: Real-time transabdominal imaging of the right upper quadrant was performed. # of images incl. paperwork: 116 FINDINGS: LIVER: Normal size and parenchymal echotexture. No focal lesions are identified. GALLBLADDER: Multiple shadowing gallstones. No abnormal wall thickening or pericholecystic fluid. Sonographic Betancur sign: Positive. CBD/BILE DUCT: The common bile duct is not dilated, measuring 3 mm. There is no intra or extrahepatic biliary ductal dilatation. PANCREAS: Non-visualized secondary to obscuration by overlying bowel gas. OTHER: Right kidney is unremarkable without hydronephrosis, measuring 10.0 cm in length. US/Abdomen Limited IMPRESSION: 1. Cholelithiasis without sonographic evidence for cholecystitis. Positive sonographic Betancur sign, correlate clinically. 2. Suboptimal evaluation of pancreas. at 1928 Reported and signed by: Lavell Garrido MD Electronically Signed: Lavell Garrido MD at 19:26 EST Tel , Service support ,
[2020-12-08] MEDS: Ketorolac 15 MG/ML Vial IV (18:27)
[2020-12-08 18:28] VITALS: BP 135/78; PULSE 69; RESP 16; O2SAT 97
[2020-12-08 18:48] LABS: AST(SGOT) 24 U/L (15-37); Alanine Aminotransfer ALT/SGPT 26 U/L (13-56); Albumin, Serum 2.6 g/dL (3.2-5.0); Alkaline Phosphatase 145 U/L (45-117); Globulin 5.3 g/dL (2.2-4.2); Lipase 78 U/L (73-393); Protein, Total 7.9 g/dL (6.4-8.2)
[2020-12-08 19:52] VITALS: BP 101/70; PULSE 67; RESP 18; O2SAT 96
== END 2020-12-08 20:22 | disposition home or self-care (01) ==
LOC: ED 16:56
PROVIDERS: Emergency Provider Emergency Medicine; PCP Family Medicine
DX: R07.89 Other chest pain (principal); R91.1 Solitary pulmonary nodule; Z86.79 Personal history of other diseases of the circulatory system; K80.20 Calculus of gallbladder without cholecystitis without obstruction; I10 Essential (primary) hypertension; K21.9 Gastro-esophageal reflux disease without esophagitis; I48.0 Paroxysmal atrial fibrillation; I25.2 Old myocardial infarction; E78.00 Pure hypercholesterolemia, unspecified; G47.33 Obstructive sleep apnea (adult) (pediatric); Z79.82 Long term (current) use of aspirin; Z79.899 Other long term (current) drug therapy
CPT/HCPCS: 71045; 71275; 76705; 80048; 80076; 83690; 84484; 85025; 85379; 87426; 93005; 96361; 96374; 96375; 96376; 99285; J7030; Q9967; A4216; J2405

== ENCOUNTER → 2020-12-23 15:52 | Outpatient (CLI) | payer MEDICARE, SELFPAY ==
[2020-12-05 14:34] VITALS: BMI 31.7
[2020-12-11 14:30] VITALS: BMI 30.4
[2020-12-23 16:29] LABS: Absolute Lymphocyte Count 2.16 X10^3/uL (0.83-4.51); Basophil# 0.08 X10^3/uL; Basophil% 0.6 % (0-1); Eosinophil# 0.58 X10^3/uL; Eosinophils% 4.1 % (0-5); Hematocrit 37.2 % (37-47); Hemoglobin 11.9 g/dL (12.0-15.0); Lymphocyte # 2.16 X10^3/ul (4.0); Lymphocyte % 15.1 % (19-41); Mean Corpuscular Hgb 26.4 pg (27.0-32.0); Mean Corpuscular Volume 82.5 fL (81-99); Mean Platelet Vol. 10.9 fl (6.2-12.0); Monocyte# 1.24 X10^3/uL; Monocyte% 8.7 % (0-10); NRBC Flagged by Analyzer 0 % (0-5); Neutrophil # 9.98 X10^3/uL (2.7-7.7); Neutrophil % 69.8 % (47-70); Platelet Count 679 K/mm3 (150-450); RBC Distribution Width CV 15.3 % (11.6-14.6); RBC Distribution Width SD 45.3 fl (35.1-43.9); Red Blood Count 4.51 M/mm3 (4.2-5.4); White Blood Count 14.3 K/mm3 (4.4-11.0)
[2020-12-23 17:18] LABS: ALB/GLOB Ratio 0.4 RATIO (0.9-2.4); AST(SGOT) 21 U/L (15-37); Alanine Aminotransfer ALT/SGPT 19 U/L (13-56); Albumin, Serum 2.3 g/dL (3.2-5.0); Alkaline Phosphatase 151 U/L (45-117); Anion Gap 7 (5-15); BUN 13 mg/dL (7-18); Calcium,Total 9.4 mg/dL (8.5-10.1); Chloride 98 mmol/L (98-107); Creatinine, Serum 0.93 mg/dL (0.55-1.02); EST Glomerular Filtration Rate 63 mL/min (>60); Est Glom Filt Rate - Afr Amer 76 mL/min (>60); Ferritin 370 ng/mL (8-252); Globulin 5.5 g/dL (2.2-4.2); Glucose 148 mg/dL (74-106); Iron 23 ug/dL (50-170); Iron Binding Capacity,Total 220 ug/dL (250-450); Protein, Total 7.8 g/dL (6.4-8.2); Sodium Level 134 mmol/L (136-145); Thyroid Stim Hormone (TSH) 1.23 uIU/mL (0.358-3.74)
[2020-12-23 17:51] LABS: Hepatitis C Antibody Non-Reactive (Nonreactive); Vitamin B12 610 pg/mL (211-911); Vitamin D,25 Hydroxy 68.3 ng/mL
== END ==
PROVIDERS: PCP Family Medicine Geriatric Medicine; Referring Provider Family Medicine Geriatric Medicine; Visit Provider Family Medicine Geriatric Medicine
DX: N39.0 Urinary tract infection, site not specified (principal); D50.9 Iron deficiency anemia, unspecified; E55.9 Vitamin D deficiency, unspecified; R53.83 Other fatigue; Z13.89 Encounter for screening for other disorder
CPT/HCPCS: 36415; 80053; 82306; 82607; 82728; 82747; 83540; 83550; 84443; 85014; 85025; 86803; 87086

== ENCOUNTER → 2021-01-05 14:56 | Outpatient (CLI) | payer MEDICARE, SELFPAY ==
[2020-12-05 14:34] VITALS: BMI 31.7
[2020-12-11 14:30] VITALS: BMI 30.4
--- NOTE | 2021-01-05 15:00 | RAD_ITS ---
STUDY: X-RAY CHEST REASON FOR EXAM: Female, 70 years old. Worsening shortness of breath TECHNIQUE: PA and lateral views of the chest. COMPARISON: 12/08/2020 FINDINGS: Stable elevation of the right hemidiaphragm. Satisfactory appearance of a Gastric Sleeve The lungs are clear and expanded. There is no demonstrated pleural abnormality. Normal size heart. Normal mediastinum and dana. Normal visualized pulmonary arteries. There is atherosclerotic calcification of the aortic arch with tortuosity. There are diffuse degenerative changes of the visualized thoracic spine. Normal visualized ribs, clavicles, and shoulders. There is no demonstrated abnormality of the visualized soft tissue structures of the upper abdomen. RAD/Chest PA and Lateral IMPRESSION: No acute pulmonary process Electronically Signed: David William MD at 17:12 EST , Service support ,
== END ==
PROVIDERS: PCP Family Medicine Geriatric Medicine; Referring Provider Family Medicine Geriatric Medicine; Visit Provider Family Medicine Geriatric Medicine
DX: R06.02 Shortness of breath (principal)
CPT/HCPCS: 71046

== ENCOUNTER → 2021-01-13 14:56 | Outpatient (CLI) | payer MEDICARE, SELFPAY ==
[2020-12-05 14:34] VITALS: BMI 31.7
[2020-12-11 14:30] VITALS: BMI 30.4
--- NOTE | 2021-01-13 15:00 | PET_ITS ---
EXAMINATION: FDG PET/CT INDICATIONS: A 70-year-old female with history of carcinoma of the breast presenting for restaging examination and evaluation of pulmonary nodularity. COMPARISON EXAMINATION: None available INDEX LESION SIZE SUV INTERPRETATION Right lower posteromedial lung-right lower lobe 19.5-mm (frame 175) 2.6 Fulfills quantitative criteria for viable neoplasm Subcarinal posterior mediastinum 13.4-mm (frame 181) 3.6 Fulfills borderline quantitative criteria for viable neoplasm Additional right and left hemithorax pulmonary parenchyma 1.6 (max) Quantitative criteria for viable neoplasm are not fulfilled TECHNIQUE: Following the intravenous administration of 13.9 mCi of F-18 deoxyglucose via the left antecubital fossa, multiplanar image acquisitions of the neck, chest, abdomen and pelvis to level of mid thigh, obtained at one hour post radiopharmaceutical administration contemporaneously interpreted with the current CT of the neck, chest, abdomen and pelvis to level of mid thigh, dated 01/13/21 via coregistration reveal: SERUM GLUCOSE LEVEL: 102 mg/dl. HEIGHT: 62 inches. WEIGHT: 165 lbs. FINDINGS: 1. A nodular focus of enhanced glucose metabolism is demonstrated in the right lower posteromedial lung-right lower lobe generating a calculated maximal standard uptake value of 2.6. The maximal axial diameter of the corresponding partially cavitated perispinal density on review of CT of the chest dated 01/13/21 is 19.5-mm (AP). 2. Enhanced fluorine labeled glucose metabolism is manifest in the subcarinal posterior mediastinum registering a calculated maximal standard uptake value of 3.6. Borderline quantitative criteria for centrally located thoracic/mediastinal viable neoplasm are not fulfilled. The maximal axial diameter of the corresponding metabolic, morphologic abnormality on review of CT of the chest dated 01/13/21 is 13.4-mm (AP). 3. Several additional foci of increased radiopharmaceutical concentration area observed in the bilateral hemithorax pulmonary parenchyma generating a calculated maximal standard uptake value of 1.6. 4. Normal physiologic distribution of the radiopharmaceutical is apparent in the hepatic (4.0) and splenic parenchyma, both renal units, bladder and visualized intestinal tract. The visualized portion of the cerebral cortical-subcortical structures demonstrate symmetric and preserved glucose metabolism. Diffuse radiopharmaceutical concentration is noted in all four quadrants of the abdomen and pelvis. Pertinent CT findings are as follows: CHEST: Additional parenchymal densities defined in the bilateral hemithorax demonstrate mild quantitatively insignificant increased glucose metabolism as previously described. Bilateral breast prostheses are defined. Left axillary subcentimeter soft tissue densities are non-glucose avid. Surgical clip placement is noted in the right axillary region. There is atherosclerotic calcification defined in the thoracic aorta without evidence of dilatation-aneurysm formation. Coronary arterial calcification is observed. ABDOMEN AND PELVIS: Cholelithiasis is demonstrated. There is evidence of apparent lap band procedure involving the proximal gastric body. There is atherosclerotic calcification defined in the abdominal aorta without evidence of dilatation-aneurysm formation. Pelvic arterial calcification is observed. Colonic diverticulosis is encountered without evidence of diverticulitis. Bilateral inguinal soft tissue densities, subcentimeter in presentation, with fatty hilus are non-glucose avid. SKELETAL: Degenerative changes are noted in the cervical, thoracic and lumbar spine without evidence of increased radiopharmaceutical concentration. PET/PET/CT Tumor Base -Thigh Init IMPRESSION: 1. Increased glucose metabolism identified in the right lower posteromedial lung-right lower lobe fulfills quantitative criteria for viable neoplasm with single point technique. Histopathologic analysis should be considered. (Persaud et al, Annals of Internal Medicine, 138:724, 2003). 2. Facilitated uptake observed in the subcarinal posterior mediastinum fulfills borderline quantitative criteria for viable neoplasm. 3. Additional right and left lung hypermetabolic foci do not fulfill quantitative criteria for viable neoplasm. Electronic Signature Que Cao D.O. Accurate Quantification of SUVs for this report are calculated using the exclusive [employer]? Technology.??Exclusive [place]. Patent [employer]? Technology ([place].S. Patent No. [id number]). Electronically Signed: Que Cao DO at 22:28 EST Tel , Service support ,
== END ==
PROVIDERS: PCP Family Medicine Geriatric Medicine; Referring Provider Family Medicine Geriatric Medicine; Visit Provider Family Medicine Geriatric Medicine
DX: R91.8 Other nonspecific abnormal finding of lung field (principal)
CPT/HCPCS: 78815; A9552

== ENCOUNTER 2021-01-19 11:30 | Emergency (ER) | payer MEDICARE, SELFPAY ==
[2020-12-05 14:34] VITALS: BMI 31.7
[2020-12-11 14:30] VITALS: BMI 30.4
[2021-01-19 11:31] VITALS: BP 117/47; PULSE 81; RESP 16; TEMP 36; O2SAT 97; BMI 29.8
[2021-01-19] MEDS: Mixture 30 ML Bottle 10 ML TOPICAL (13:45)
--- NOTE | 2021-01-19 13:49 | ED.VIS.GEN ---
History of Present Illness Chief Complaint: Nosebleed Informant: Patient, Significant Other Onset: Hours Context: Sudden Onset Timing: Continuous Quality: Spontaneous epistaxis Location: Started on left side Current Severity: Moderate Maximum Severity: Severe Worsened by: Patient on aspirin and Brilinta Relieved by: Nothing Associated Symptoms: No other symptoms Narrative: She is an elderly woman on aspirin and Brilinta status post cardiac catheterization with deployment of drug-eluting stent. She presents because of spontaneous epistaxis. Started prior to arrival. The bleeding did not stop with pressure. She did have blood in her mouth. She was passing symptomatic clots. She denies history of bruising easily. She denies history of bleeding from gums. She denies black or maroon stool. She denies blood in her urine. Prior similar symptoms: No Recent Illness/Hospitalization: No - Past Medical History (1) History of coronary artery stent placement Status: Acute Comment: PCI-ADELITA-Mid LAD w/ 2.5 x 18 mm resolute Bola Stent and POBA-Ostium of D1 11/25/2020 (2) Essential (primary) hypertension Status: Chronic (3) History of breast cancer Status: Chronic (4) Mixed hyperlipidemia Status: Chronic (5) Nonrheumatic mitral (valve) insufficiency Status: Chronic Comment: Mild per ecoh 03/23/18 (6) Nonrheumatic tricuspid (valve) insufficiency Status: Chronic Comment: mild per echo 03/23/18 (7) OXANA (obstructive sleep apnea) Status: Chronic (8) Paroxysmal atrial fibrillation Status: Chronic Past Medical History - Allergies and Home Meds Allergies/Adverse Reactions: Allergies No Known Allergies Allergy (Verified 01/19/21 11:33) Primary Care Physician: Eugene Alfonso Chi, MD [Primary Care Provider] - Prior records reviewed: Yes Surgical History: noncontributory Lives: Spouse/ Significant Other Smoking Status: Never smoker Alcohol: Rare Drugs: None - Family History Maternal Family History: Family History (Last Reviewed 12/13/20 @ 09:47 by Taylor BRADSHAW, PA) Father Heart disease Colon cancer Mother Breast cancer CVA (cerebral vascular accident) Grandmother CVA (cerebral vascular accident) Brother Diabetes Family History: Reports: No pertinent history Review of Systems General: Denies: Chills, Fever, Malaise, Subjective Eyes: Denies: Visual changes - bilaterally, Blurred Vision - bilaterally ENT: Reports: - - Spontaneous epistaxis. Denies: Rhinorrhea, Sore throat Cardiovascular: Denies: Chest pain, Palpitations Respiratory: Denies: Dyspnea, Cough, Dyspnea on exertion Gastrointestinal: Denies: Nausea, Vomiting Genitourinary: Denies: Hematuria Skin: Denies: Wounds Hematologic: Denies: Easy bruising, Easy bleeding Physical Exam Vital Signs/Narrative: Vital Signs Temp Pulse Resp BP Pulse Ox 01/19/21 11:31 96.8 F L 81 16 117/47 L 97 Inital Vital Signs reviewed: Yes General: Well nourished, Well developed, No Acute Distress Head: Normocephalic, Atraumatic Eyes: Perrl, EOMI ENT: Moist mucous membranes, No rhinorrhea, TM's clear, - - Epistaxis left side. Blood is noted past the inferior turbinate. There is blood noted in the posterior pharynx. Neck: Supple, Nontender, No lymphadenopathy, No JVD Cardiovascular: Regular rate, Regular rhythm, Normal S1, Normal S2, Murmur Respiratory: No distress, CTA bilaterally Skin: Normal color, No rash Neurological: Alert, Oriented x3, Cranial nerves II-XII grossly intact, Normal Strength, Normal Sensation Psychological: Normal affect Diagnostic/Tx/Re-eval - Medical Decision Making Suspect patient has a high anterior versus a posterior nosebleed. There is no bleeding noted over Anu box plexus. A 7.5 cm rapid Rhino was placed. Patient experienced slight discomfort. She was placed on antibiotics and referred to Dr. Escobar since her has seen Dr. Escobar in the past. Procedures Procedure(s): Posterior rapid Rhino left naris placed by [facility] ED Disposition - Plan for ED Patient: Disposition: Home or Assisted Living Diagnosis: Epistaxis not due to trauma Instructions: ED Epistaxis (Adult) Prescriptions: Amoxicillin 500 mg PO TID #14 tab Transmission Status: Pending to [facility] Referrals: Eugene Alfonso Chi, MD [Primary Care Provider] - Patrick Small MD [STAFF PHYSICIAN] - 3-5 Days
[2021-01-19] MEDS: AMOXICILLIN 500 MG CAPSULE PO (14:00)
== END 2021-01-19 14:02 | disposition home or self-care (01) ==
PROVIDERS: Emergency Provider Emergency Medicine; PCP Family Medicine Geriatric Medicine
DX: R04.0 Epistaxis (principal); I10 Essential (primary) hypertension; E78.2 Mixed hyperlipidemia; I34.0 Nonrheumatic mitral (valve) insufficiency; I48.0 Paroxysmal atrial fibrillation; G47.33 Obstructive sleep apnea (adult) (pediatric); Z85.3 Personal history of malignant neoplasm of breast; Z95.5 Presence of coronary angioplasty implant and graft; Z79.82 Long term (current) use of aspirin; Z79.899 Other long term (current) drug therapy
CPT/HCPCS: 30905; 99283

== ENCOUNTER → 2021-02-26 10:48 | Outpatient (CLI) | payer MEDICARE, SELFPAY ==
[2020-12-05 14:34] VITALS: BMI 31.7
--- NOTE | 2021-02-26 10:50 | BI_ITS ---
MAMMOGRAPHY - BILATERAL SCREENING REASON FOR EXAM: Female, 70 years old. Routine annual screening examination. PERTINENT HISTORY: Personal history of breast cancer. Prior right lumpectomy with radiation and chemotherapy. Prior bilateral breast reduction surgery and breast implant. TECHNIQUE: Digital bilateral breast margaux (3D mammographic acquisition) in the CC and MLO projections. 2-D mediolateral oblique (MLO) and craniocaudad (CC) views of both breasts were obtained. CAD: Full Field Digital Mammography with Computer Added Detection was performed. COMPARISON: Comparison is made with prior examination of 01/30/2020 and 01/24/2019. FINDINGS: Breast Composition: The breasts are almost entirely fatty. There are no dominant masses or suspicious calcifications. Postsurgical changes are seen in the left breast following lumpectomy. Thickening of the periareolar region most likely postoperative and postradiation changes. The implants are not well visualized at this time. No other significant abnormalities are identified. There has been no significant change since the prior study. BI/SCRN MAMM (CAD)W/MARGAUX BILAT IMPRESSION: Stable bilateral screening mammogram. Yearly follow-up mammogram recommended. (A) ASSESSMENT CATEGORY: BIRADS Category 2: Benign. A letter regarding these results will be sent to the patient by the facility within 30 days. Approximately 10% of breast cancers are not detected by mammography. A normal mammogram should not delay biopsy of a clinically suspicious abnormality. [id number] Electronically Signed: Jordan Adame MD at 14:07 EDT , Service support ,
== END ==
PROVIDERS: PCP Family Medicine Geriatric Medicine; Referring Provider Family Medicine Geriatric Medicine; Visit Provider Family Medicine Geriatric Medicine
DX: Z12.31 Encounter for screening mammogram for malignant neoplasm of breast (principal)
CPT/HCPCS: 77063; 77067

== ENCOUNTER → 2021-03-19 08:42 | Outpatient (CLI) | payer MEDICARE, SELFPAY ==
[2020-12-05 14:34] VITALS: BMI 31.7
[2021-03-10 12:53] VITALS: BMI 30.2
--- NOTE | 2021-03-19 14:53 | PFTCOMP_ITS ---
COMPLETE PULMONARY FUNCTION TEST INTERPRETATION Brief HPI: Patient is a 70 year old female, currently under the care of Dr. Alfonso, who presents to [facility] for complete pulmonary function tests secondary to diagnosis of dyspnea. Respiratory therapist reports good effort and reproducible results. Interpretation: Forced expiration spirometry shows no large airways obstructive ventilatory defect with an FEV1 of 69% predicted. There is no significant bronchodilator response by strict ATS criteria. Spirograms are of fair quality and plateau slowly, indicating slowly emptying areas of the lungs. The respiratory flow volume loop shows a normal pattern. Lung volumes by body plethysmography show a decreased total lung capacity at 3.34 L, 73% predicted. All other lung volumes are within normal limits. Diffusion capacity by carbon monoxide is decreased at 43% predicted. The airway resistance is slightly elevated. Compared to previous pulmonary function tests from 07/26/2018, there is been a significant reduction in all measured values. Impression: Mild restrictive ventilatory defect with a disproportionate reduction in diffusion capacity and significant worsening compared to previous.
== END ==
PROVIDERS: PCP Family Medicine Geriatric Medicine; Referring Provider Family Medicine Geriatric Medicine; Visit Provider Family Medicine Geriatric Medicine
DX: R06.02 Shortness of breath (principal)
CPT/HCPCS: 94060; 94726; 94729

== ENCOUNTER → 2021-04-02 14:44 | Outpatient (CLI) | payer MEDICARE, SELFPAY ==
[2020-12-05 14:34] VITALS: BMI 31.7
[2021-03-10 12:53] VITALS: BMI 30.2
[2021-04-02 17:20] LABS: Absolute Lymphocyte Count 1.84 X10^3/uL (0.83-4.51); Absolute Neutrophil Count 13.2 X10^3/uL (2.0-7.7); Basophil# 0.07 X10^3/uL; Basophil% 0.4 % (0-1); Eosinophil# 0.11 X10^3/uL; Eosinophils% 0.7 % (0-5); Hematocrit 38.8 % (37-47); Hemoglobin 11.4 g/dL (12.0-15.0); Lymphocyte # 1.84 X10^3/ul (0.83-4.51); Lymphocyte % 10.9 % (19-41); Mean Corp Hgb Conc 29.4 g/dL (32-36); Mean Corpuscular Hgb 27.3 pg (27.0-32.0); Mean Platelet Vol. 10.5 fl (6.2-12.0); Monocyte# 1.23 X10^3/uL; Monocyte% 7.3 % (0-10); NRBC Flagged by Analyzer 0 % (0-5); Neutrophil # 13.23 X10^3/uL (2.7-7.7); Neutrophil % 78.6 % (47-70); Platelet Count 499 K/mm3 (150-450); RBC Distribution Width CV 17.1 % (11.6-14.6); RBC Distribution Width SD 58.8 fl (35.1-43.9); Red Blood Count 4.17 M/mm3 (4.2-5.4); White Blood Count 16.8 K/mm3 (4.4-11.0)
[2021-04-02 17:35] LABS: Vitamin D,25 Hydroxy 43.8 ng/mL
[2021-04-02 17:47] LABS: ALB/GLOB Ratio 0.6 RATIO (0.9-2.4); AST(SGOT) 12 U/L (15-37); Alanine Aminotransfer ALT/SGPT 25 U/L (13-56); Albumin, Serum 2.9 g/dL (3.2-5.0); Alkaline Phosphatase 85 U/L (45-117); Anion Gap 4 (5-15); BUN 19 mg/dL (7-18); BUN/Creat Ratio 20.1 RATIO (10-20); Calcium,Total 9.5 mg/dL (8.5-10.1); Chloride 103 mmol/L (98-107); Creatinine, Serum 0.95 mg/dL (0.55-1.02); EST Glomerular Filtration Rate 62 mL/min (>60); Est Glom Filt Rate - Afr Amer 75 mL/min (>60); Globulin 4.6 g/dL (2.2-4.2); Glucose 146 mg/dL (74-106); Potassium 4.8 mmol/L (3.5-5.1); Protein, Total 7.5 g/dL (6.4-8.2); Sodium Level 136 mmol/L (136-145); Thyroid Stim Hormone (TSH) 0.98 uIU/mL (0.358-3.74)
== END ==
PROVIDERS: PCP Family Medicine Geriatric Medicine; Visit Provider Family Medicine Geriatric Medicine
DX: E55.9 Vitamin D deficiency, unspecified (principal); R53.83 Other fatigue
CPT/HCPCS: 36415; 80053; 82306; 84443; 85025

== ENCOUNTER → 2021-04-15 14:58 | Outpatient (CLI) | payer MEDICARE, SELFPAY ==
[2020-12-05 14:34] VITALS: BMI 31.7
[2021-03-10 12:53] VITALS: BMI 30.2
--- NOTE | 2021-04-15 15:05 | RAD_ITS ---
HISTORY: SOB EXAMINATION/TECHNIQUE: XR Chest 2 Views: 2 views COMPARISON: 01/05/21 FINDINGS: LINES/DEVICES: None. LUNGS: Stable coarsening of interstitial markings without pulmonary consolidation, mass, or edema. No pleural effusion or pneumothorax. MEDIASTINUM AND CARDIOVASCULAR STRUCTURES: Cardiac silhouette not enlarged. Central airways and mediastinal contour are unremarkable. BONES AND SOFT TISSUES: No acute bony abnormalities. Surgical changes from gastric lap band procedure. RAD/Chest PA and Lateral IMPRESSION: No radiographic evidence of acute cardiopulmonary disease. at 1634 Reported and signed by: Bishop King MD Electronically Signed: Bishop King MD at 16:33 EDT Tel , Service support ,
== END ==
PROVIDERS: PCP Family Medicine Geriatric Medicine; Referring Provider Family Medicine Geriatric Medicine; Visit Provider Family Medicine Geriatric Medicine
DX: R06.02 Shortness of breath (principal)
CPT/HCPCS: 71046

== ENCOUNTER → 2021-04-20 16:06 | Outpatient (CLI) | payer MEDICARE, SELFPAY ==
[2020-12-05 14:34] VITALS: BMI 31.7
[2021-03-10 12:53] VITALS: BMI 30.2
[2021-04-20 17:41] LABS: CRP 4.98 mg/L (0.0-3.0); Rheumatoid Factor < 10.0 IU/mL (<15)
[2021-04-20 17:44] LABS: Erythrocyte Sedimentation Rate 40 mm/hr (0-30)
[2021-04-22 14:09] LABS: Anti-Scleroderma-70 AB <0.2 AI (0.0-0.9)
[2021-04-22 15:34] LABS: ANTINUCLEAR ANTIBODIES DIRECT Negative (Negative); Anti-dsDNA Ab <1 IU/mL (0-9)
[2021-04-23 20:08] LABS: Angiotensin Convert Enzyme 20 U/L (14-82); QNTFERON TB Mitogen Value > 10.00 IU/mL (.); QNTFERON TB Nil Value 0 IU/mL (.); QNTFERON TB1+ Ag Value 0 IU/mL (.); QNTFERON TB2+ Ag Value 0 IU/mL (.)
[2021-04-24 08:00] LABS: CCP IgG Antibodies < 1 units (0-19); Perinuclear Ab (P-ANCA) <1:20 titer (Neg:<1:20); QNTIFERON TB Positive Criteria Negative (Negative)
== END ==
PROVIDERS: PCP Family Medicine Geriatric Medicine; Referring Provider Internal Medicine Pulmonary Disease; Visit Provider Internal Medicine Pulmonary Disease
DX: R91.1 Solitary pulmonary nodule (principal); J84.112 Idiopathic pulmonary fibrosis; R06.00 Dyspnea, unspecified; R09.1 Pleurisy; I25.10 Atherosclerotic heart disease of native coronary artery without angina pectoris
CPT/HCPCS: 36415; 82164; 85652; 86038; 86140; 86200; 86225; 86235; 86256; 86431; 86480

== ENCOUNTER → 2021-04-22 10:51 | Outpatient (CLI) | payer MEDICARE, SELFPAY ==
[2020-12-05 14:34] VITALS: BMI 31.7
[2021-03-10 12:53] VITALS: BMI 30.2
== END ==
PROVIDERS: PCP Family Medicine Geriatric Medicine; Referring Provider Internal Medicine Pulmonary Disease; Visit Provider Internal Medicine Pulmonary Disease
DX: R91.1 Solitary pulmonary nodule (principal)
CPT/HCPCS: 87385

== ENCOUNTER → 2021-05-07 12:26 | Outpatient (CLI) | payer MEDICARE, SELFPAY ==
[2020-12-05 14:34] VITALS: BMI 31.7
[2021-03-10 12:53] VITALS: BMI 30.2
--- NOTE | 2021-05-07 12:29 | RAD_ITS ---
STUDY: X-RAY CHEST REASON FOR EXAM: Female, 70 years old. PILMONARY NODULE TECHNIQUE: PA and lateral views of the chest. COMPARISON: 04/15/2021 FINDINGS: Status post right axillary lymph node dissection The lungs are clear and expanded. There is no demonstrated pleural abnormality. Normal size heart. Normal mediastinum and dana. Normal visualized pulmonary arteries. Normal visualized aortic arch and descending thoracic aorta. Normal visualized thoracic spine. Normal visualized ribs, clavicles, and shoulders. There is no demonstrated abnormality of the visualized soft tissue structures of the upper abdomen. RAD/Chest PA and Lateral IMPRESSION: No active disease. Electronically Signed: Que Boo MD at 12:51 EDT Tel , Service support ,
[2021-05-07 13:27] LABS: Color, Urine Yellow (Yellow); Glucose, Dipstick Normal (Normal); Ketone-Dipstick 15 mg/dl (Negative); Leukocyte Esterase-Dipstick 25 /ul (Negative); Nitrite-Dipstick Negative (Negative); Occult Blood-Urine Negative /ul (Negative); Protein-Dipstick 15 mg/dl (Negative); Specific Gravity, Urine 1.025 (1.002-1.030); Urine Bilirubin Dipstick Negative (Negative); Urine Clarity Sl. Cloudy (Clear); Urine Urobilinogen 1 mg/dl (Normal)
[2021-05-12 20:09] LABS: Perinuclear Ab (P-ANCA) <1:20 titer (Neg:<1:20)
== END ==
PROVIDERS: PCP Family Medicine Geriatric Medicine; Referring Provider Internal Medicine Pulmonary Disease; Visit Provider Internal Medicine Pulmonary Disease
DX: J84.112 Idiopathic pulmonary fibrosis (principal); R91.1 Solitary pulmonary nodule
CPT/HCPCS: 36415; 71046; 81002; 86256

== ENCOUNTER → 2021-06-16 12:22 | Outpatient (CLI) | payer MEDICARE, SELFPAY ==
[2020-12-05 14:34] VITALS: BMI 31.7
[2021-03-10 12:53] VITALS: BMI 30.2
--- NOTE | 2021-06-16 12:30 | CT_ITS ---
STUDY: CT CHEST WITHOUT CONTRAST REASON FOR EXAM: Female, 71 years old. PULM NODULE RADIATION DOSAGE (If Supplied By Facility): CTDIvol = ( 19.31 ) mGy, DLP = ( 657.15 ) mGycm TECHNIQUE: Transaxial imaging was performed without the administration of intravenous contrast material. Individualized dose optimization techniques were used for this CT. COMPARISON: None. FINDINGS: Status post right axillary lymph node dissection. Some subpleural scarring. No noncalcified nodule or mass. There is no demonstrated pleural abnormality. Normal heart and pericardium. There are calcifications of the coronary arteries. Normal mediastinum. Normal hilar regions. Normal unenhanced pulmonary arteries. Normal aorta arch and descending thoracic aorta. Normal osseous structures. Lap band device. Peripherally calcified gallstones within gallbladder consistent cholelithiasis CT/Chest without Contrast IMPRESSION: Some subpleural scarring. Electronically Signed: Que Boo MD at 8:51 EDT Tel , Service support ,
== END ==
PROVIDERS: PCP Family Medicine Geriatric Medicine; Referring Provider Internal Medicine Pulmonary Disease; Visit Provider Internal Medicine Pulmonary Disease
DX: R91.1 Solitary pulmonary nodule (principal)
CPT/HCPCS: 71250

== ENCOUNTER → 2021-06-19 06:16 | Outpatient (CLI) | payer MEDICARE, SELFPAY ==
[2020-12-05 14:34] VITALS: BMI 31.7
[2021-03-10 12:53] VITALS: BMI 30.2
--- NOTE | 2021-06-22 08:26 | STRESSREP_ITS ---
Stress Test Report Pharmacologic myocardial perfusion stress test. Preoperative evaluation. 71-year-old lady with a history of previous coronary artery disease scheduled for preop surgery. Stress protocol: Resting EKG demonstrates normal sinus rhythm with a rate of 98 bpm normal intervals are noted resting blood pressure is 120/70 mmHg. 0.4 mg of regadenoso n was infused per usual protocol followed by rapid intravenous saline flush injection continuous EKG monitoring was performed. At rest there were no ST or T wave changes noted to suggest abnormal flow reserve and at peak infusion nonspecific ST changes were noted with did not meet the criteria for ischemia. No clinical angina was noted. Myocardial perfusion protocol. 11.5 mCi of technetium 99m sestamibi was injected at rest. 0.4 mg of regadenoson was infused per usual protocol. At peak infusion 33.0 mCi of technetium 99m sestamibi was injected stress images were obtained stress and rest images were reconstructed and compared in the short axis vertical long and horizontal long axis. Gated images were also obtained. Perfusion SPECT analysis: Review of the stress images demonstrate normal uptake of tracer noted in all areas of the myocardium. The resting images similarly demonstrate normal uptake of tracer noted in all areas of the myocardium. No areas of reversibility are noted to suggest ischemia and no previous infarct is noted. Gated SPECT analysis: The gated ejection fraction is over 80%. Conclusion: Normal pharmacologic myocardial perfusion stress test. Preserved ejection fraction.
== END ==
PROVIDERS: PCP Family Medicine Geriatric Medicine; Referring Provider Nurse Practitioner Family; Visit Provider Nurse Practitioner Family
DX: Z01.818 Encounter for other preprocedural examination (principal); I25.10 Atherosclerotic heart disease of native coronary artery without angina pectoris
CPT/HCPCS: 78452; 93017; A9500; A4216; J2785

== ENCOUNTER → 2021-09-22 14:04 | Outpatient (CLI) | payer MEDICARE, SELFPAY ==
[2020-12-05 14:34] VITALS: BMI 31.7
[2021-09-22 17:22] LABS: Absolute Lymphocyte Count 1.03 X10^3/uL (0.83-4.51); Absolute Neutrophil Count 9.6 X10^3/uL (2.0-7.7); Basophil# 0.02 X10^3/uL; Basophil% 0.2 % (0-1); Eosinophil# 0.01 X10^3/uL; Eosinophils% 0.1 % (0-5); Hematocrit 38.5 % (37-47); Hemoglobin 11.9 g/dL (12.0-15.0); Lymphocyte # 1.03 X10^3/ul (0.83-4.51); Lymphocyte % 9.1 % (19-41); Mean Corp Hgb Conc 30.9 g/dL (32-36); Mean Corpuscular Volume 93.7 fL (81-99); Mean Platelet Vol. 11.1 fl (6.2-12.0); Monocyte# 0.57 X10^3/uL; NRBC Flagged by Analyzer 0 % (0-5); Neutrophil # 9.57 X10^3/uL (2.7-7.7); Neutrophil % 84.2 % (47-70); Platelet Count 314 K/mm3 (150-450); RBC Distribution Width CV 15.9 % (11.6-14.6); RBC Distribution Width SD 54.6 fl (35.1-43.9); Red Blood Count 4.11 M/mm3 (4.2-5.4); White Blood Count 11.4 K/mm3 (4.4-11.0)
[2021-09-22 17:50] LABS: Vitamin D,25 Hydroxy 44.9 ng/mL
[2021-09-22 17:52] LABS: ALB/GLOB Ratio 0.8 RATIO (0.9-2.4); AST(SGOT) 12 U/L (15-37); Alanine Aminotransfer ALT/SGPT 25 U/L (13-56); Alkaline Phosphatase 69 U/L (45-117); Anion Gap 7 (5-15); BUN 14 mg/dL (7-18); BUN/Creat Ratio 13.9 RATIO (10-20); Calcium,Total 9.2 mg/dL (8.5-10.1); Chloride 103 mmol/L (98-107); Creatinine, Serum 1.01 mg/dL (0.55-1.02); EST Glomerular Filtration Rate 57 mL/min (>60); Est Glom Filt Rate - Afr Amer 69 mL/min (>60); Globulin 3.9 g/dL (2.2-4.2); Glucose 171 mg/dL (74-106); Potassium 4.4 mmol/L (3.5-5.1); Protein, Total 6.9 g/dL (6.4-8.2); Sodium Level 138 mmol/L (136-145); Thyroid Stim Hormone (TSH) 0.58 uIU/mL (0.358-3.74)
== END ==
PROVIDERS: PCP Family Medicine Geriatric Medicine; Visit Provider Family Medicine Geriatric Medicine
DX: R53.83 Other fatigue (principal); E55.9 Vitamin D deficiency, unspecified
CPT/HCPCS: 36415; 80053; 82306; 84443; 85025

== ENCOUNTER 2021-12-16 04:11 | Inpatient (IN) | payer MEDICARE, SELFPAY ==
[2020-12-05 14:34] VITALS: BMI 31.7
[2021-12-16] VITALS (7 sets, daily range): BP systolic 90–131; BP diastolic 52–74; PULSE 71–80; RESP 16–18; TEMP 36.3–36.7; O2SAT 92–100; BMI 34.4; BMI 33.4
--- NOTE | 2021-12-16 04:23 | CT_ITS ---
STUDY: CT ABDOMEN AND PELVIS WITH CONTRAST REASON FOR EXAM: Female, 71 years old. Abdominal Pain RADIATION DOSAGE (If Supplied By Facility): CTDIvol = ( 16.23 ) mGy, DLP = ( 1173.46 ) mGycm TECHNIQUE: Transaxial images were obtained from the dome of the diaphragm to the symphysis pubis without oral contrast. IV 100mL Isovue-370 was administered. Sagittal and coronal images were reconstructed. Individualized dose optimization techniques were used for this CT. COMPARISON: June 16, 2021 CT chest FINDINGS: There is minimal lower lobe atelectasis. There are bilateral breast implants. There is borderline cardiac enlargement. Normal liver. There are multiple stable cholesterol laden stones within the gallbladder each measuring approximately 1 cm. Normal spleen. Normal pancreas. Normal bilateral adrenal glands. Normal right kidney. Normal left kidney. There is a visualized lap band surrounding the proximal stomach with redundant port tubing extending to the left side of the abdomen then out of the right side of the abdomen adjacent to the liver. The port is in the right to midline abdomen. There is a distended loop of small bowel in the right lower quadrant. There is a mildly edematous appearance of the wall of the cecum. Image 75 there is a strandy inflammatory appearance of the colon within the mid descending colon which is fairly focal over a segment of approximately 7.3 cm. There is a least one elongated at least partially inflamed diverticula present.. The colon appears edematous from this level extending into the sigmoid colon with decompression in diverticula without significant associated inflammatory change. The appendix is visualized and appears normal. There is diffuse atherosclerotic calcification of the abdominal aorta, without a demonstrated aneurysm. Normal inferior vena cava. Normal retroperitoneum. Normal urinary bladder. There is atrophy of the uterus. Normal abdominal wall. There are diffuse degenerative changes of the visualized lumbar spine. CT/Abdomen/Pelvis W IV Cont ONLY IMPRESSION: Focal inflammatory change of the mid to distal colon over a segment of 7.3 cm wall thickening stranding edema narrowing of the lumen.. There is a small focal outpouching which may represent elongated diverticulum versus a small focal contained micro leak. Consider focal diverticulitis without exclusion of a focal neoplastic lesion given the focality of the inflammation and narrowing of the lumen. There is diffuse edema of the colon from this area to the rectum compatible with colitis. There is also mild wall thickening and edema of the cecum. Persistent cholelithiasis. Persistent LAP-BAND. Degenerative change of the thoracolumbar spine. Electronically Signed: Jen Guan MD at 5:53 EST ,
--- NOTE | 2021-12-16 04:24 | EDS_ITS ---
HPI HPI - GI History of Present Illness Chief Complaint: Abd Pain Narrative Narrative: Patient with past medical history of coronary artery disease, atrial fibrillation, on Eliquis presents with diverticulitis. She states she had previous diverticulitis back in September of last year, approximately 4 months ago. This feels the same. She started having problems yesterday evening at 10 PM, almost 6-1/2 hours ago. She had pain in her left upper and lower quadrants of her abdomen. She got up and had a painful bowel movement/diarrhea that was nonbloody. She is nauseated and started dry heaving. She denies any fevers or chills. She complains of pain in her left upper the lower abdomen. She denies any exacerbating or alleviating factors. No dysuria or hematuria. Once again, this feels very similar to her previous bout of diverticulitis which was treated with outpatient antibiotics. [facility] Medical History (Updated 12/16/21 @ 06:[address] Svetlana Falk MD) Atherosclerotic heart disease of [place] coronary artery without angina pectoris Breast cancer Chronic rhinitis Colitis Diverticulitis Essential (primary) hypertension GERD (gastroesophageal reflux disease) History of breast cancer History of ST elevation myocardial infarction (STEMI) (11/25/20) Impaired fasting blood sugar Mixed hyperlipidemia Neuropathy OXANA (obstructive sleep apnea) Osteopenia Paroxysmal atrial fibrillation Tear film insufficiency Vitamin deficiency Tami's granulomatosis Home Medications carboxymethylcellulose sodium 0.5 % eye drops 1 drp OPHTHALMIC 4-8XD PRN 08/31/18 [History Last Taken Unknown] cholecalciferol (vitamin D3) 50 mcg PO DAILY 11/25/20 [History Last Taken Unknown] atorvastatin 10 mg tablet 10 mg PO QHS #90 tab 03/10/21 [Rx Last Taken Unknown] metoprolol tartrate 25 mg tablet 12.5 mg PO BID #180 tab 03/10/21 [Rx Last Taken Unknown] apixaban 5 mg tablet 5 mg PO BID #60 tab 08/26/21 [Rx Last Taken Unknown] aspirin 81 mg tablet,delayed release 81 mg PO QDAY #90 tab 11/13/21 [Rx Last Taken Unknown] fluoxetine 20 mg capsule 20 mg PO DAILY 11/13/21 [History Last Taken Unknown] Allergy/AdvReac Type Severity Reaction Status Date / Time No Known Allergies Allergy Verified 12/16/21 04:12 Family History Father Heart disease Colon cancer Mother Breast cancer CVA (cerebral vascular accident) Grandmother CVA (cerebral vascular accident) Brother Diabetes Surgical History H/O mastectomy History of adjustable gastric banding History of appendectomy History of cataract surgery History of coronary artery stent placement (11/25/20) History of left heart catheterization (~05/15/08) History of tonsillectomy Social History Smoking Status: Never smoker alcohol intake: never caffeine: No what type of physical activity do you participate in: swimming and aerobics frequency: 3-4 times per week ROS ROS ED ROS Narrative Constitutional: No fever, no chills. HEENT: No sore throat. No neck pain. No loss of vision. No rhinorrhea. Cardiovascular: No chest pain. No palpitations. No pedal edema. Respiratory: No cough, no shortness of breath. Abdominal: Left upper quadrant to left lower quadrant abdominal pain. Positive nausea. No vomiting, but dry heaving. Loose stool/diarrhea. Genitourinary: No dysuria. No hematuria. Musculoskeletal: No myalgias. No arthralgias. Neurologic: No headaches. No dizziness. No lightheadedness. Skin: No rash. No change in color. Psychiatric: No depression. No anxiety. EXAM Physical Exam Narrative Exam Narrative: Afebrile. Vital signs noted. HEENT: Normocephalic. Atraumatic. PERRL, EOMI. Neck soft and supple. No point tenderness or step off. Cardiovascular: Regular rate and rhythm. No murmurs, rubs, or gallops appreciated. Respiratory: No tachypnea. Lungs clear to auscultation bilaterally. Gastrointestinal: Abdomen soft, with tenderness to palpation in left upper to left lower quadrant, with normoactive bowel sounds. No rebound or guarding. Neurological: Awake. Alert. Nonfocal, nonlateralizing. Skin: No rash. Normal color. No pallor. Musculoskeletal: No pedal edema. Full range of motion extremities. Const Vital Signs: 12/16/21 04:15 Temperature 97.9 F Temperature Source Oral Pulse Rate 77 Respiratory Rate 18 Blood Pressure 123/66 H Blood Pressure Mean 85 Pulse Ox 98 Oxygen Delivery Method Room Air MDM MDM MDM Narrative Medical decision making narrative: Suspicion is high for diverticular disease/diverticulitis. She was administered 4 mg of morphine and 4 mg of ondansetron. She will be bolused IV fluids. Comprehensive work-up was pursued. I do feel CT imaging is indicated in this recurrent case of diverticulitis. Patient has hypokalemia with a potassium of 3.1 which will replaced orally. She states that she is always had a problem with hypokalemia, and used to take supplementation, but stopped because she states it is always low. She does have an elevated white count of 13.1. Hemoglobin stable at 12.5. Her CT of the abdomen pelvis with IV contrast shows focal inflammatory change of the mid to distal colon over segment of 7.3 cm wall thickening and stranding edema and narrowing of the lumen. There is a small focal outpouching which may represent either elongated diverticulum versus a small focal contained micro leak. She will be started on Zosyn for her diverticulitis. She still has tenderness in the left mid to lower quadrant. I will discuss patient with the hospitalist for admission. I discussed the patient with Dr. Falk. Additionally, I did contact Dr. Gasca with general surgery as the patient has seen Dr. Diez in the past for her asymptomatic gallstones. Disposition is admit in stable condition. Lab Data Attestation: I reviewed the patient's lab results. Labs: Laboratory Results - last 24 hr 12/16/21 12/16/21 04:23 04:23 WBC 13.1 H RBC 4.44 Hgb 12.5 Hct 39.4 MCV 88.7 MCH 28.2 MCHC 31.7 L RDW Std Deviation 51.4 H RDW Coeff of [place]rest[place] 15.7 H Plt Count 371 MPV 11.2 Immature Gran % (Auto) 0.500 Neut % (Auto) 65.7 Lymph % (Auto) 17.7 L [place] % (Auto) 13.5 H Eos % (Auto) 2.2 Baso % (Auto) 0.4 Absolute Neuts (auto) 8.6 H Absolute Lymphs (auto) 2.32 Nucleated RBC % [address] Review May foll Anisocytosis 1+ Sodium 137 Potassium 3.1 L Chloride 101 Carbon Dioxide 28.0 Anion Gap 8 BUN 7 Creatinine 0.86 Estim Creat Clear Calc 46.08 Est GFR (MDRD) Af Amer 83 Est GFR (MDRD) Non-Af 68 BUN/Creatinine Ratio 8.1 L Glucose 134 H Calcium 9.4 Radiography Diagnostic Testing: Clinical Impression(s) from Imaging Studies Abdomen/Pelvis CT 12/16/21 04:23 IMPRESSION: Focal inflammatory change of the mid to distal colon over a segment of 7.3 cm wall thickening stranding edema narrowing of the lumen.. There is a small focal outpouching which may represent elongated diverticulum versus a small focal contained micro leak. Consider focal diverticulitis without exclusion of a focal neoplastic lesion given the focality of the inflammation and narrowing of the lumen. There is diffuse edema of the colon from this area to the rectum compatible with colitis. There is also mild wall thickening and edema of the cecum. Persistent cholelithiasis. Persistent LAP-BAND. Degenerative change of the thoracolumbar spine. Electronically Signed: Jen Guan MD at 5:53 EST , Discharge Plan Triage Chief Complaint: Abd Pain ED Provider: Mack Mendoza Dx/Rx/DC Orders Clinical Impression: Diverticulitis large intestine, Hypokalemia Primary Care Provider: Eugene Alfonso Chi
[2021-12-16 04:29] LABS: Absolute Lymphocyte Count 2.32 X10^3/uL (0.83-4.51); Absolute Neutrophil Count 8.6 X10^3/uL (2.0-7.7); Basophil# 0.05 X10^3/uL; Basophil% 0.4 % (0-1); Eosinophil# 0.29 X10^3/uL; Eosinophils% 2.2 % (0-5); Hematocrit 39.4 % (37-47); Hemoglobin 12.5 g/dL (12.0-15.0); Lymphocyte # 2.32 X10^3/ul (0.83-4.51); Lymphocyte % 17.7 % (19-41); Mean Corp Hgb Conc 31.7 g/dL (32-36); Mean Corpuscular Hgb 28.2 pg (27.0-32.0); Mean Corpuscular Volume 88.7 fL (81-99); Mean Platelet Vol. 11.2 fl (6.2-12.0); Monocyte# 1.77 X10^3/uL; Monocyte% 13.5 % (0-10); NRBC Flagged by Analyzer 0 % (0-5); Neutrophil # 8.59 X10^3/uL (2.7-7.7); Neutrophil % 65.7 % (47-70); POSITIVE DIFFERENTIAL YES; Platelet Count 371 K/mm3 (150-450); RBC Distribution Width CV 15.7 % (11.6-14.6); RBC Distribution Width SD 51.4 fl (35.1-43.9); Red Blood Count 4.44 M/mm3 (4.2-5.4); White Blood Count 13.1 K/mm3 (4.4-11.0)
[2021-12-16] MEDS: 0.9% Normal Saline 1,000 ML 1000 ML IV (04:30)
[2021-12-16] MEDS: Ondansetron 4 MG/2 ML Vial IV (04:30)
[2021-12-16 04:31] LABS: Differential Indicated SCAN CRITERIA MET
[2021-12-16] MEDS: Morphine 4 MG/ML Syringe IV ×3 (04:31→21:20)
[2021-12-16 04:48] LABS: Anisocytosis 1+
[2021-12-16 05:00] LABS: Anion Gap 8 (5-15); BUN 7 mg/dL (7-18); BUN/Creat Ratio 8.1 RATIO (10-20); Calcium,Total 9.4 mg/dL (8.5-10.1); Chloride 101 mmol/L (98-107); Creatinine, Serum 0.86 mg/dL (0.55-1.02); EST Glomerular Filtration Rate 68 mL/min (>60); Est Glom Filt Rate - Afr Amer 83 mL/min (>60); Estimated Creatinine Clearance 46.08 ml/min; Glucose 134 mg/dL (74-106); Potassium 3.1 mmol/L (3.5-5.1); Sodium Level 137 mmol/L (136-145)
--- NOTE | 2021-12-16 06:21 | HP.PCM.HOS_ITS ---
HPI - General General Date of Admission: 12/16/21 Date of Service: 12/16/21 Chief Complaint: Abdominal pain, nausea, emesis HPI Narrative The patient is a 71 y/o F w/ PMHx: PAF, Obesity, CAD s/p PCI following w/ Dr. Man, HTN, HLD, PAF, recently Tami's granulomatosis diagnosis following with [facility] with routine chemotherapy infusion, Breast CA s/p mastectomy, GERD, Hx frequent diverticulitis who presents to the [facility] ED on 12/16/21 with history of serial bouts of diverticulitis with most recent 09/2021 with similar feeling with onset the evening prior approximately 10 PM left upper and lower quadrant pain, more painful with bowel movement with loose nonbloody stool associated as well as nausea and dry heaving with no fevers or chills but given its not improving prompted ED evaluation. She rates her pain 10 out of 10, severe, worse with any palpation. Work-up in the ED included T 97.9, heart rate 77, BP 120/66, respiratory rate 18, 90% on room air, CBC with WC 13.1, hemoglobin 12.5, platelets 371 with left shift, BMP with potassium 3.1, glucose 134 otherwise not marked appearing, CT abdomen pelvis with focal inflammatory change of the mid to distal colon over segment 7.3 cm with wall thickening, s tranding, edema and narrowing of the lumen with a focal small outpouching possibly an elongated diverticulum versus a small focal contained micro leak, diffuse edema of the colon compatible with colitis as well as mid wall thickening and edema of the cecum. In the ED patient administered potassium 40 mill equivalent p.o. x1, Zosyn, Zofran, morphine and normal saline. [facility] Medical History (Updated 12/16/21 @ 06:[address] Svetlana Falk MD) Atherosclerotic heart disease of [place] coronary artery without angina pectoris Breast cancer Chronic rhinitis Colitis Diverticulitis Essential (primary) hypertension GERD (gastroesophageal reflux disease) History of breast cancer History of ST elevation myocardial infarction (STEMI) (11/25/20) Impaired fasting blood sugar Mixed hyperlipidemia Neuropathy Osteopenia Paroxysmal atrial fibrillation Tear film insufficiency Vitamin deficiency Tami's granulomatosis Home Medications carboxymethylcellulose sodium 0.5 % eye drops 1 drp OPHTHALMIC 4-8XD PRN 08/31/18 [History Last Taken Unknown] cholecalciferol (vitamin D3) 50 mcg PO DAILY 11/25/20 [History Last Taken Unknown] atorvastatin 10 mg tablet 10 mg PO QHS #90 tab 03/10/21 [Rx Last Taken Unknown] metoprolol tartrate 25 mg tablet 12.5 mg PO BID #180 tab 03/10/21 [Rx Last Taken Unknown] apixaban 5 mg tablet 5 mg PO BID #60 tab 08/26/21 [Rx Last Taken Unknown] aspirin 81 mg tablet,delayed release 81 mg PO QDAY #90 tab 11/13/21 [Rx Last Taken Unknown] fluoxetine 20 mg capsule 20 mg PO DAILY 11/13/21 [History Last Taken Unknown] Allergy/AdvReac Type Severity Reaction Status Date / Time No Known Allergies Allergy Verified 12/16/21 04:12 Family History Father Heart disease Colon cancer Mother Breast cancer CVA (cerebral vascular accident) Grandmother CVA (cerebral vascular accident) Brother Diabetes Surgical History H/O mastectomy History of adjustable gastric banding History of appendectomy History of cataract surgery History of coronary artery stent placement (11/25/20) History of left heart catheterization (~05/15/08) History of tonsillectomy Social History (Updated 12/16/21 @ 06:[address] Svetlana Falk MD) household members: spouse Smoking Status: Never smoker alcohol intake: never caffeine: No what type of physical activity do you participate in: swimming and aerobics frequency: 3-4 times per week ROS ROS Narrative Admission Review of Systems: CONSTITUTIONAL: No weight loss, fever, chills, + weakness or fatigue. HEENT: Eyes: No visual loss, blurred vision, double vision or yellow sclerae. Ears, Nose, Throat: No hearing loss, sneezing, congestion, runny nose or sore throat. SKIN: No rash or itching, lesions, wounds. CARDIOVASCULAR: No chest pain, chest pressure or chest discomfort, palpitations, edema, orthopnea, syncopal events. RESPIRATORY: No shortness of breath, cough or sputum, wheezing, hemoptysis. GASTROINTESTINAL: + anorexia, nausea, vomiting, diarrhea, abdominal pain, No melena, BRBPR. GENITOURINARY: No dysuria, frequency, urgency or retention. NEUROLOGICAL: + BL LE weakness, No headache, dizziness, syncope, paralysis, ataxia, numbness or tingling in the extremities, seizure. MUSCULOSKELETAL: + muscle, back pain, joint pain or stiffness. HEMATOLOGIC: No anemia, bleeding or bruising. LYMPHATICS: No enlarged nodes. No history of splenectomy. PSYCHIATRIC: + history of depression or anxiety. ENDOCRINOLOGIC: No reports of sweating, cold or heat intolerance. No polyuria or polydipsia. ALLERGIES: No history of asthma, hives, eczema or rhinitis. Vital Signs Vital Signs Vital Signs: 12/16/21 04:15 Temperature 97.9 F Temperature Source Oral Pulse Rate 77 Respiratory Rate 18 Blood Pressure 123/66 H Blood Pressure Mean 85 Pulse Ox 98 Oxygen Delivery Method Room Air Weight Weight: 188 lb 0.869 oz Body Mass Index (BMI) 34.4 Physical Exam Narrative Physical Examination: General: Awake, alert, oriented x 3 and cooperative, seated upright in the ED bed in no apparent distress, notes pain improved, fatigue. Skin: Normal color, normal turgor, no icterus, no cyanosis. HEENT: AT/NC, EOMI, PERRLA, dry MM, no carotid bruits or JVD noted. Lungs: Diminished, greater bases, appropriate effort, no rales, ronchi or w heezing. Heart: Regular rate and rhythm; no gallop, rub audible. Abdomen: Soft, discomfort to the bilateral lower quadrant, left greater than right, rebound tenderness noted, unable to discern marked distention, will be hyperactive bowel sounds, no obvious evidence of HSM; however, pain makes examin ation difficult. Extremities: No cyanosis, clubbing, or edema. Neurological: Patient awake, alert, oriented as noted, cognitive function intact; pupils equally reactive to light and accommodation, cranial nerves II- XII grossly normal, moving all 4 extremities however limited given lower extremity weakness following recent diagnosis of her prior Tami's granulomatosis on chemotherapy, no focal deficits, strength moderately to severely global decreased. Psychiatric: Affect appears fatigued, notes pain lessened, no acute evidence of depressive or anxiety feelings. Results Lab / Micro Data Result Diagrams: 12/16/21 04:23 12/16/21 04:23 Labs: Laboratory Results - last 24 hr 12/16/21 04:23: WBC 13.1 H, RBC 4.44, Hgb 12.5, Hct 39.4, MCV 88.7, MCH 28.2, MCHC 31.7 L, RDW Std Deviation 51.4 H, RDW Coeff of [place]restes 15.7 H, Plt Count 371, MPV 11.2, Immature Gran % (Auto) 0.500, Neut % (Auto) 65.7, Lymph % (Auto) 17.7 L, [place] % (Auto) 13.5 H, Eos % (Auto) 2.2, Baso % (Auto) 0.4, Absolute Neuts (auto) 8.6 H, Absolute Lymphs (auto) 2.32, Nucleated RBC % 0, Diff Path Review May foll, Anisocytosis 1+ 12/16/21 04:23: Sodium 137, Potassium 3.1 L, Chloride 101, Carbon Dioxide 28.0, Anion Gap 8, BUN 7, Creatinine 0.86, Estim Creat Clear Calc 46.08, Est GFR (MDRD) Af Amer 83, Est GFR (MDRD) Non-Af 68, BUN/Creatinine Ratio 8.1 L, Glucose 134 H, Calcium 9.4 Radiology Impression Abdomen/Pelvis CT 12/16/21 04:23 IMPRESSION: Focal inflammatory change of the mid to distal colon over a segment of 7.3 cm wall thickening stranding edema narrowing of the lumen.. There is a small focal outpouching which may represent elongated diverticulum versus a small focal contained micro leak. Consider focal diverticulitis without exclusion of a focal neoplastic lesion given the focality of the inflammation and narrowing of the lumen. There is diffuse edema of the colon from this area to the rectum compatible with colitis. There is also mild wall thickening and edema of the cecum. Persistent cholelithiasis. Persistent LAP-BAND. Degenerative change of the thoracolumbar spine. Electronically Signed: Jen Guan MD at 5:53 EST , Assessment & Plan Assessment/Plan (1) Colitis: PLAN: The patient is a 71 y/o F w/ PMHx: PAF, Obesity, CAD s/p PCI following w/ Dr. Magda, HTN, HLD, PAF, recently Tami's granulomatosis d iagnosis following with [facility] with routine chemotherapy infusions, Breast CA s/p mastectomy, GERD, Hx frequent diverticulitis who presents to the [facility] ED on 12/16/21 with history of serial bouts of diverticulitis with most recent 09/2021 with similar feeling with onset the evening prior approximately 10 PM left upper and lower quadrant pain, more painful with bowel movement with loose nonbloody stool associated as well as nausea and dry heaving with no fevers or chills but given its not improving prompted ED evaluation. #1. Acute colitis with elongated diverticulum with questionable diverticulitis with microperforation: Will admit to medical surgical floor, maintain on aggressive hydration, monitor I&Os, maintain NPO status w/ bowel rest, treat with zosyn regimen, famotidine, anti-emetics, pain regimen PRN. Given questionable focal micro leaks will request surgery involvement to be cautious especially given serial episodes. Given atypical colon appearance and diarrhea will obtain cdiff and enteric to be cautious. #2. Hypokalemia: Admission K+ 3.1, unfortunately unable to obtain magnesium level, supplementation given, repeat level in AM. #3. PAF: We will temporarily hold patient apixaban pending surgery evaluation given #1 however low threshold to resume if clinically improves, continue metoprolol regimen. #4. CAD: Status post PCI, will continue aspirin, metoprolol, statin therapy, not on KALA inhibitor/ARB. #5. Hypertension: Continue home regimen including metoprolol with hold parameters as needed, PRN hydralazine. #6. Hyperlipidemia: We will continue statin therapy. #7. Anxiety and depression: We will continue patient on fluoxetine regimen. #8. History of breast cancer w/ associated restrictive lung disease: Status post mastectomy, considered in remission, unfortunate scaring of the lung with reduced capacity associated with radiation scarring. #9. Tami's granulomatosis: Following with [facility] oncology, routine chemotherapeutic treatments per discussion with family and patient, associated near bedbound status secondary to bilateral lower extremity weakness and debility's. #10. DVT prophylaxis: SCDs, lovenox. #11. CODE status: Patient HCPOA is her and secondary is her children and living will is currently in place. Discussed CODE status at length including difference between FULL code, DNR-CCA and DNR-CC status. Following discussions about the differences in these status, requested Full Code status but notes intention to discuss further and will update staff if any changes. Advanced Care Planning Face to Face Time: 16 minutes. Charges/Coding Visit Charges Inpatient E&M: 57029 Init Hosp L3 Procedures Hospitalists Procedures: 50203 Advncd Care Plan 30 Min
[2021-12-16] MEDS: Potassium Chloride Oral Tablet 20 MEQ 40 MEQ PO (06:39)
--- NOTE | 2021-12-16 07:18 | PCM.PN.HOSP ---
Subjective Subjective Patient is a 71-year-old lady with a history of diverticulitis who presented with abdominal pain. Imaging studies obtained on admission demonstrated Focal inflammatory change of the mid to distal colon over a segment of 7.3 cm wall thickening stranding edema narrowing of the lumen.. There is a small focal outpouching which may represent elongated diverticulum versus a small focal contained micro leak. Consider focal diverticulitis without exclusion of a focal neoplastic lesion given the focality of the inflammation and narrowing of the lumen. There is diffuse edema of the colon from this area to the rectum compatible with colitis. There is also mild wall thickening and edema of the cecum Objective Data Objective Data Vital Signs: Vital Signs Temp Pulse Resp BP Pulse Ox 97.9 F 74 16 131/74 H 100 12/16/21 06:41 12/16/21 06:41 12/16/21 06:41 12/16/21 06:41 12/16/21 06:41 Oxygen Delivery Method Room Air Weight: 85.3 kg Body Mass Index (BMI) 34.4 Intake & Output: Intake and Output for Last 24 Hours 12/14/21 12/15/21 12/16/21 23:59 23:59 23:59 Intake Total 1000 / 1000 Balance 1000 / 1000 Lab / Micro Data Result Diagrams: 12/16/21 04:23 12/16/21 04:23 Labs: Laboratory Results - last 24 hr 12/16/21 04:23: WBC 13.1 H, RBC 4.44, Hgb 12.5, Hct 39.4, MCV 88.7, MCH 28.2, MCHC 31.7 L, RDW Std Deviation 51.4 H, RDW Coeff of Orestes 15.7 H, Plt Count 371, MPV 11.2, Immature Gran % (Auto) 0.500, Neut % (Auto) 65.7, Lymph % (Auto) 17.7 L, Lynn % (Auto) 13.5 H, Eos % (Auto) 2.2, Baso % (Auto) 0.4, Absolute Neuts (auto) 8.6 H, Absolute Lymphs (auto) 2.32, Nucleated RBC % 0, Diff Path Review May foll, Anisocytosis 1+ 12/16/21 04:23: Sodium 137, Potassium 3.1 L, Chloride 101, Carbon Dioxide 28.0, Anion Gap 8, BUN 7, Creatinine 0.86, Estim Creat Clear Calc 46.08, Est GFR (MDRD) Af Amer 83, Est GFR (MDRD) Non-Af 68, BUN/Creatinine Ratio 8.1 L, Glucose 134 H, Calcium 9.4 Radiography Diagnostic Testing: Radiology Impression Abdomen/Pelvis CT 12/16/21 04:23 IMPRESSION: Focal inflammatory change of the mid to distal colon over a segment of 7.3 cm wall thickening stranding edema narrowing of the lumen.. There is a small focal outpouching which may represent elongated diverticulum versus a small focal contained micro leak. Consider focal diverticulitis without exclusion of a focal neoplastic lesion given the focality of the inflammation and narrowing of the lumen. There is diffuse edema of the colon from this area to the rectum compatible with colitis. There is also mild wall thickening and edema of the cecum. Persistent cholelithiasis. Persistent LAP-BAND. Degenerative change of the thoracolumbar spine. Electronically Signed: Jen Guan MD at 5:53 EST Reading Location ID and State: [facility] / [place] Tel , Service support , Physical Exam Narrative GENERAL: cooperative HEENT: Atraumatic; EYES; Anicteric, Normal Conjunctiva NECK; supple, normal thyroid, RESPIRATORY: Diminished to auscultation CARDIOVASCULAR: Regular S1 S2, GI: soft, normoactive bowel sounds, : No Renal angle tenderness; EXTREMITIES: No edema, no clubbing, MUSCULOSKELETAL: no muscle wasting NEURO: Awake; no lateralizing signs. SKIN: No Rash PSYCH; Flat affect Assessment & Plan Assessment/Plan (1) Colitis: PLAN: Patient is a 71-year-old lady with a history of diverticulitis who presented with abdominal pain. Imaging studies obtained on admission demonstrated Focal inflammatory change of the mid to distal colon over a segment of 7.3 cm wall thickening stranding edema narrowing of the lumen.. There is a small focal outpouching which may represent elongated diverticulum versus a small focal contained micro leak. Consider focal diverticulitis without exclusion of a focal neoplastic lesion given the focality of the inflammation and narrowing of the lumen. There is diffuse edema of the colon from this area to the rectum compatible with colitis. There is also mild wall thickening and edema of the cecum 1. Abdominal pain secondary to combination of colitis with questionable diverticulitis with microperforation ?Admitted to regular nursing floor started on broad-spectrum antibiotic therapy with consultation placed to general surgery 2. Hypokalemia -Corrected per protocol with repeat labs ordered for monitoring 3. Coronary artery disease ?With previous PCI. Patient on recommended medications 4. Hypertension - Blood pressure controlled, home medications continued with dose adjustment as needed 5. Dyslipidemia -Patient is on statin therapy, continued at home dose 6. Paroxysmal A. fib ?Rate controlled on metoprolol and systemic anticoagulation with apixaban 7. History of granulomatosis with polyangiitis (Tami's granulomatosis) ?Patient managed at [facility] 8. Coronary artery disease ?Status postmastectomy with subsequent radiation. Patient currently in remission 9. Depression with anxiety ?Patient is on fluoxetine 10. DVT prophylaxis ?Is on apixaban did continue Charges/Coding Visit Charges Inpatient E&M: 63162 Subs Hosp L3
--- NOTE | 2021-12-16 07:51 | CON.PCM.SX_ITS ---
Assessment & Plan Assessment/Plan (1) Diverticulitis large intestine: PLAN: This is a 71-year-old female with a history of recurrent diverticulitis. She presents today with possible complicated diverticulitis given the appearance of either an exceptionally long diverticulum or walled off microperforation and CT imaging. Unfortunately, although the patient has had some 3 episodes in the last 4 months, there is no comparative imaging since these prior episodes were managed on an outpatient basis. At the time of our emergency room encounter, the patient is resting with well?controlled abdominal pain. It is elicited focally in the left lower quadrant, but the patient is otherwise able to rest reasonably well. Patient's medical history is notable for concurrent Rituxan infusions for diagnosis of Tami's granulomatosis, wheelchair-bound status, compromised respiratory function, anticoagulation for history of paroxysmal atrial fibrillation. Given her relatively benign physical exam and complex medical history, would recommend conservative management of this issue with bowel rest, IV fluid rehydration, and empiric IV antibiotic coverage for enteric pathogens. It is reasonable to pursue stool studies given the patient's recent antibiotic use and appearance of colitis in both the right and left colon on CT imaging. Surgery will continue to follow with serial abdominal exams. HPI Consult Data Date of Consult: 12/16/21 HPI Narrative HPI Narrative: ANDRADE SANTOS, is a 71 F with a complex past medical history including coronary artery disease, paroxysmal atrial fibrillation on Eliquis, breast cancer status post mastectomy and radiation, colitis, diverticulitis, OXANA, and Tami's granulomatosis who presents to [facility] with acute onset left lower quadrant pain. She relates that she has had 3 episodes of diverticulitis in the last 4 months?the last being just before Pinky time. The current episode felt similar to these prior episodes, but more severe in intensity. These prior episodes have been treated with oral anti biotics on an outpatient basis by Dr. Alfonso. She states that she had diverticular disease diagnosed more remotely (there is clinical work-up from 2015 documenting 1 such episode in our EMR), however, she has never been told that she has an abscess or microperforation. Patient denies any fevers or c hills prior to her presentation, but does note that she had approximately 6 loose bowel movements yesterday, whereas her baseline is normally around 2 bowel movements daily. She denies noting any recent bloody bowel movements or weight loss. Mrs. Santos believes she is up-to-date on her colonoscopies and is due for a 10-year follow-up exam at another year. She recalls her last exam was performed through the [facility] here in [place]. Patient does have a family history of colon cancer, and her father, who was diagnosed at the age of 72. Patient admits that her baseline mobility is been severely compromised secondary to shortness of breath. She has been told this is related to radiation aftereffects following treatment for her breast cancer 13 years ago. This is left her largely wheelchair-bound and she requires periodic supplemental oxygen. Patient's diagnosis of Tami's granulomatosis is managed to the [facility]. She states that she presents for Rituxan infusions every 6 months and is next due for an infusion in February. [facility] Medical History (Updated 12/16/21 @ 08:49 by Mell Edmondson) Anxiety Arthritis Atherosclerotic heart disease of [place] coronary artery without angina pectoris Atrial fibrillation Breast cancer Chronic rhinitis Colitis Depression Diverticulitis Essential (primary) hypertension GERD (gastroesophageal reflux disease) History of breast cancer History of ST elevation myocardial infarction (STEMI) (11/25/20) Impaired fasting blood sugar Mixed hyperlipidemia Myocardial infarct Neuropathy On home oxygen therapy Osteopenia Paroxysmal atrial fibrillation Tear film insufficiency Vitamin deficiency Tami's granulomatosis Home Medications carboxymethylcellulose sodium 0.5 % eye drops 1 drp OPHTHALMIC 4-8XD PRN 08/31/18 [History Last Taken 12/15/21] cholecalciferol (vitamin D3) 50 mcg PO DAILY 11/25/20 [History Last Taken 12/15/21] atorvastatin 10 mg tablet 10 mg PO QHS #90 tab 03/10/21 [Rx Last Taken 12/15/21] metoprolol tartrate 25 mg tablet 12.5 mg PO BID #180 tab 03/10/21 [Rx Last Taken 12/15/21] apixaban 5 mg tablet 5 mg PO BID #60 tab 08/26/21 [Rx Last Taken 12/15/21] aspirin 81 mg tablet,delayed release 81 mg PO QDAY #90 tab 11/13/21 [Rx Last Taken 12/15/21] fluoxetine 20 mg capsule 20 mg PO DAILY 11/13/21 [History Last Taken 12/15/21] Allergy/AdvReac Type Severity Reaction Status Date / Time No Known Allergies Allergy Verified 12/16/21 04:12 Family History Father Heart disease Colon cancer Mother Breast cancer CVA (cerebral vascular accident) Grandmother CVA (cerebral vascular accident) Brother Diabetes Surgical History H/O mastectomy History of adjustable gastric banding History of appendectomy History of cataract surgery History of coronary artery stent placement (11/25/20) History of left heart catheterization (~05/15/08) History of tonsillectomy Social History (Updated 12/16/21 @ 06:[address] Svetlana Santos MD) household members: spouse Smoking Status: Never smoker alcohol intake: never caffeine: No what type of physical activity do you participate in: swimming and aerobics frequency: 3-4 times per week Physical Exam Const alert, oriented x3 and no apparent distress General Appearance: cooperative GI GI Narrative: Mildly obese, nondistended, soft, focally tender in the left lower quadrant and (less so) in the left upper quadrant Lab / Micro Data Result Diagrams: 12/16/21 04:23 12/16/21 04:23 Labs: Laboratory Results - last 24 hr 12/16/21 04:23: WBC 13.1 H, RBC 4.44, Hgb 12.5, Hct 39.4, MCV 88.7, MCH 28.2, MCHC 31.7 L, RDW Std Deviation 51.4 H, RDW Coeff of Orestes 15.7 H, Plt Count 371, MPV 11.2, Immature Gran % (Auto) 0.500, Neut % (Auto) 65.7, Lymph % (Auto) 17.7 L, [place] % (Auto) 13.5 H, Eos % (Auto) 2.2, Baso % (Auto) 0.4, Absolute Neuts (auto) 8.6 H, Absolute Lymphs (auto) 2.32, Nucleated RBC % 0, Diff Path Review May foll, Anisocytosis 1+ 12/16/21 04:23: Sodium 137, Potassium 3.1 L, Chloride 101, Carbon Dioxide 28.0, Anion Gap 8, BUN 7, Creatinine 0.86, Estim Creat Clear Calc 46.08, Est GFR (MDRD) Af Amer 83, Est GFR (MDRD) Non-Af 68, BUN/Creatinine Ratio 8.1 L, Glucose 134 H, Calcium 9.4 Radiology Impression Abdomen/Pelvis CT 12/16/21 04:23 IMPRESSION: Focal inflammatory change of the mid to distal colon over a segment of 7.3 cm wall thickening stranding edema narrowing of the lumen.. There is a small focal outpouching which may represent elongated diverticulum versus a small focal contained micro leak. Consider focal diverticulitis without exclusion of a focal neoplastic lesion given the focality of the inflammation and narrowing of the lumen. There is diffuse edema of the colon from this area to the rectum compatible with colitis. There is also mild wall thickening and edema of the cecum. Persistent cholelithiasis. Persistent LAP-BAND. Degenerative change of the thoracolumbar spine. Electronically Signed: Jen Guan MD at 5:53 EST Reading Location ID and State: [facility] / [place] Tel , Service support , Charges/Coding Visit Charges Inpatient E&M: 87010 Init Hosp L2
[2021-12-16 08:42] LABS: Bacteria 0 SEEN /hpf (None Seen); Mucous, Urine 0 SEEN /hpf (<or=2+); Red Blood Cells-Urine 0 SEEN /hpf (0-5); Squamous Epithelial Cells - UA 0 SEEN /hpf (5-10); White Blood Cells 0 SEEN /hpf (0-5)
[2021-12-16 08:44] LABS: Color, Urine Yellow (Yellow); Glucose, Dipstick Normal (Normal); Ketone-Dipstick Negative (Negative); Leukocyte Esterase-Dipstick Negative /ul (Negative); Nitrite-Dipstick Negative (Negative); Occult Blood-Urine Negative /ul (Negative); Protein-Dipstick 15 mg/dl (Negative); Urine Bilirubin Dipstick Negative (Negative); Urine Clarity Clear (Clear); Urine Urobilinogen Normal (Normal)
[2021-12-16] MEDS: 0.9% Normal Saline 1,000 ML 100 ML IV ×2 (09:03→18:22)
[2021-12-16] MEDS: Potassium Chloride 10mEq/100mL 10 MEQ/100 ML IV.SOLN. 100 MEQ IV BOLUS ×4 (09:03→12:57)
--- NOTE | 2021-12-16 11:35 | CM.UR ---
SHABBIR MARINELLI CAMERA MECHANIC CM to room to meet with patient for initial transition planning/care coordination assessment. SHABBIR MRAINELLI introduced self and role at [facility]. Pt voices understanding and consents to assessment at this time. Pt resting in bed in no distress at this time. Pt is A/O at this time and answers all questions appropriately. Care providers, pharmacy, and demographics verified/updated at this time. PCP:Dr Alfonso Specialists:Dr Man-cardiology, Dr Rae-pulmonology, Dr Sheth-oncology, Dr De La Torre-rheumatology @ [facility] Preferred Pharmacy: [facility] Insurance: [facility] Prescription Benefit: Yes Living Will/HPOA: Has both. , Derrell, is POA. Dtr, Iqra listed as 1st alternative LNOK: , Derrell. Dtr, Iqra. 2 other children Living Arrangements: Lives w/her in one-story home w/basement w/3 steps to enter through front entrance and 6 through the garage. Pt does not go to the basement. assists pt w/ADL's--bathing and dressing and he does all IADL's. Pt manages her own medications and appts. Transportation: Pt does not drive. drives DME: States has the following DME: shower chair, BSC, RTS, hand held shower, walker, W/C, Inogen portable concentrator, which was ordered by Dr Rae. She states order is for 2 l/m continuously but that she does not wear it all the time. Pt states no need for further DME at this time. HHC/SNF: No hx of SNF. Pt states she would like [facility] for therapy. Pt was provided with list of C providers including quality and resource use data and consistent with the patient's preferred geographic region, medical needs, and insurance network. The pt's states she would like to review this list w/her before making a decision on preferences. . Pt wishes to return home w/HHC and states has no concerns with going home at time of discharge. CM to follow for any further discharge planning/needs. Pt voices no further concerns/needs at this time. Advised pt to ask for CM if any further questions/concerns/needs arise. Voices understanding. PLAN: Home w/HHC and spousal support. Kai WHITFIELD RN, CM
[2021-12-16 14:02] LABS: Pathologist Review Reviewed
--- NOTE | 2021-12-16 16:50 | CHAPLAIN ---
Type of Pastoral Visit _x__ Initial Visit ___ Follow-up Visit ___ On-call Visit ___ General Patient Visit ___ Spiritual Assessment ___ Family Conference ___ Bereavement ___ Rapid Response ___ Code Blue ___ Other (describe below) Pastoral Care Referral From _x__ Patient ___ Family ___ Nurse ___ Physician ___ Legal Contracts Specialist ___ Cold Saw Operator ___ Other (describe below) Sacrament/Intervention _x__ Active listening ___ Anointing ___ Gnosticism ___ Bereavement ___ Communion _x__ Ellie exploration ___ _x__ Life review _x__ Prayer ___ Reconciliation ___ Sacrament of Sick _x__ Supportive presence ___ Wedding ___ Other (describe below) Pastoral Comments patient reviews her recent health issues and discusses her concerns for the future and for decisions to be made; pt has good support from spouse and children but the children live far away; pt is of the Rastafari ellie but has not practiced her catholic in a long time however she welcomes spiritual support and prayer
--- NOTE | 2021-12-16 17:06 | CPS ---
started by nursing
[2021-12-16] MEDS: APIXABAN 5 MG TABLET PO (20:54)
[2021-12-16] MEDS: 0.9% Saline Lock 10 ML Syringe IV (21:19)
[2021-12-17] VITALS (7 sets, daily range): BP systolic 107–120; BP diastolic 57–79; PULSE 80–97; RESP 14–18; TEMP 36.3–37.1; O2SAT 93–98
[2021-12-17] MEDS: 0.9% Normal Saline 1,000 ML 100 ML IV ×3 (03:44→23:42)
[2021-12-17] MEDS: 0.9% Saline Lock 10 ML Syringe IV ×3 (03:58→18:15)
[2021-12-17] MEDS: Morphine 4 MG/ML Syringe IV ×2 (03:58→09:16)
[2021-12-17 04:57] LABS: Absolute Neutrophil Count 5.9 X10^3/uL (2.0-7.7); Basophil# 0.06 X10^3/uL; Basophil% 0.6 % (0-1); Eosinophil# 0.41 X10^3/uL; Eosinophils% 4.1 % (0-5); Hematocrit 35.4 % (37-47); Hemoglobin 10.9 g/dL (12.0-15.0); Lymphocyte % 21.2 % (19-41); Mean Corp Hgb Conc 30.8 g/dL (32-36); Mean Corpuscular Hgb 28.5 pg (27.0-32.0); Mean Corpuscular Volume 92.4 fL (81-99); Mean Platelet Vol. 11.6 fl (6.2-12.0); Monocyte# 1.37 X10^3/uL; Monocyte% 13.9 % (0-10); NRBC Flagged by Analyzer 0 % (0-5); Neutrophil # 5.91 X10^3/uL (2.7-7.7); Neutrophil % 59.8 % (47-70); Platelet Count 306 K/mm3 (150-450); Red Blood Count 3.83 M/mm3 (4.2-5.4); White Blood Count 9.9 K/mm3 (4.4-11.0)
[2021-12-17 05:24] LABS: Anion Gap 6 (5-15); BUN 6 mg/dL (7-18); BUN/Creat Ratio 7.3 RATIO (10-20); Calcium,Total 8.4 mg/dL (8.5-10.1); Chloride 110 mmol/L (98-107); Creatinine, Serum 0.82 mg/dL (0.55-1.02); EST Glomerular Filtration Rate 72 mL/min (>60); Est Glom Filt Rate - Afr Amer 88 mL/min (>60); Estimated Creatinine Clearance 48.33 ml/min; Glucose 83 mg/dL (74-106); Sodium Level 141 mmol/L (136-145)
--- NOTE | 2021-12-17 07:34 | PN.HOSP_ITS ---
Subjective Subjective Patient seen still complains of lower left quadrant abdominal pain Objective Data Objective Data Vital Signs: Vital Signs Temp Pulse Resp BP Pulse Ox 98.1 F 84 16 114/68 93 12/17/21 03:07 12/17/21 03:07 12/17/21 03:07 12/17/21 03:07 12/17/21 03:07 Oxygen Delivery Method Room Air Weight: 85.8 kg Body Mass Index (BMI) 33.4 Intake & Output: Intake and Output for Last 24 Hours 12/15/21 12/16/21 12/17/21 23:59 23:59 23:59 Intake Total 2865.00 / 2865.00 701.67 / 701.67 Output Total 500 / 500 Balance 2865.00 / 2565.00 201.67 / 201.67 Lab / Micro Data Result Diagrams: 12/17/21 04:09 12/17/21 04:09 Labs: Laboratory Results - last 24 hr 12/16/21 04:23: Diff Path Review Reviewed 12/16/21 08:35: Urine Color Yellow, Urine Clarity Clear, Urine pH 5.0, Ur Specific Vernon 1.010, Urine Protein 15 H, Urine Glucose (UA) Normal, Urine Ketones Negative, Urine Occult Blood Negative, Urine Nitrite Negative, Urine Bilirubin Negative, Urine Urobilinogen Normal, Ur Leukocyte Esterase Negative, Urine RBC 0 SEEN, Urine WBC 0 SEEN, Ur Squamous Epith Cells 0 SEEN, Urine Bacteria 0 SEEN, Urine Mucus 0 SEEN 12/17/21 04:09: WBC 9.9, RBC 3.83 L, Hgb 10.9 L, Hct 35.4 L, MCV 92.4, MCH 28.5, MCHC 30.8 L, RDW Std Deviation 54.0 H, RDW Coeff of Orestes 16.0 H, Plt Count 306, MPV 11.6, Immature Gran % (Auto) 0.400, Neut % (Auto) 59.8, Lymph % (Auto) 21.2, [place] % (Auto) 13.9 H, Eos % (Auto) 4.1, Baso % (Auto) 0.6, Absolute Neuts (auto) 5.9, Absolute Lymphs (auto) 2.10, Nucleated RBC % 0 12/17/21 04:09: Sodium 141, Potassium 4.0, Chloride 110 H, Carbon Dioxide 25.0, Anion Gap 6, BUN 6 L, Creatinine 0.82, Estim Creat Clear Calc 48.33, Est GFR (MDRD) Af Amer 88, Est GFR (MDRD) Non-Af 72, BUN/Creatinine Ratio 7.3 L, Glucose 83, Calcium 8.4 L Physical Exam Narrative GENERAL: cooperative HEENT: Atraumatic; EYES; Anicteric, Normal Conjunctiva NECK; supple, normal thyroid, RESPIRATORY: Diminished to auscultation CARDIOVASCULAR: Regular S1 S2, GI: soft, normoactive bowel sounds, : No Renal angle tenderness; EXTREMITIES: No edema, no clubbing, MUSCULOSKELETAL: no muscle wasting NEURO: Awake; no lateralizing signs. SKIN: No Rash PSYCH; Flat affect Assessment & Plan Assessment/Plan (1) Colitis: PLAN: Patient is a 71-year-old lady with a history of diverticulitis who presented with abdominal pain. Imaging studies obtained on admission demonstrated Focal inflammatory change of the mid to distal colon over a segment of 7.3 cm wall thickening stranding edema narrowing of the lumen.. There is a small focal outpouching which may represent elongated diverticulum versus a small focal contained micro leak. Consider focal diverticulitis without exclusion of a focal neoplastic lesion given the focality of the inflammation and narrowing of the lumen. There is diffuse edema of the colon from this area to the rectum compatible with colitis. There is also mild wall thickening and edema of the cecum 1. Abdominal pain secondary to combination of colitis with questionable diverticulitis with microperforation ?Admitted to regular nursing floor started on broad-spectrum antibiotic therapy with consultation placed to general surgery -10/16/2022;Patient seen still complains of lower left quadrant abdominal pain 2. Hypokalemia -Corrected per protocol with repeat labs ordered for monitoring 3. Coronary artery disease ?With previous PCI. Patient on recommended medications 4. Hypertension - Blood pressure controlled, home medications continued with dose adjustment as needed 5. Dyslipidemia -Patient is on statin therapy, continued at home dose 6. Paroxysmal A. fib ?Rate controlled on metoprolol and systemic anticoagulation with apixaban 7. History of granulomatosis with polyangiitis (Tami's granulomatosis) ?Patient managed at [facility] 8. Coronary artery disease ?Status postmastectomy with subsequent radiation. Patient currently in remission 9. Depression with anxiety ?Patient is on fluoxetine 10. DVT prophylaxis ?Is on apixaban did continue Charges/Coding Visit Charges Inpatient E&M: 20613 Subs Hosp L2
[2021-12-17] MEDS: Metoprolol Tartrate 25 MG Tablet 12.5 MG PO ×2 (09:06→20:53)
[2021-12-17] MEDS: FLUoxetine 20 MG Capsule PO (09:07)
[2021-12-17] MEDS: Aspirin E.C. 81 MG Tablet PO (09:07)
[2021-12-17] MEDS: APIXABAN 5 MG TABLET PO ×2 (09:07→20:52)
--- NOTE | 2021-12-17 10:33 | PCM.PN.SRG ---
Subjective Subjective Patient seen and examined during AM rounds. She is sitting upright and out of bed in a chair. She still complains of some left lower quadrant abdominal pain but states this is improved from her admission discomfort. She has been started on clear liquids and doing well tolerating this. She denies any bowel movements this admission. Objective Data Objective Data Vital Signs: Vital Signs Temp Pulse Resp BP Pulse Ox 97.5 F L 97 14 114/79 95 12/17/21 08:56 12/17/21 09:06 12/17/21 08:56 12/17/21 08:56 12/17/21 08:56 Oxygen Delivery Method Room Air Weight: 189 lb 2.506 oz Body Mass Index (BMI) 33.4 Intake & Output: Intake and Output for Last 24 Hours 12/15/21 12/16/21 12/17/21 23:59 23:59 23:59 Intake Total 2865.00 / 2865.00 751.67 / 751.67 Output Total 500 / 500 Balance 2865.00 / 2565.00 251.67 / 251.67 Lab / Micro Data Result Diagrams: 12/17/21 04:09 12/17/21 04:09 Labs: Laboratory Results - last 24 hr 12/16/21 04:23: Diff Path Review Reviewed 12/17/21 04:09: WBC 9.9, RBC 3.83 L, Hgb 10.9 L, Hct 35.4 L, MCV 92.4, MCH 28.5, MCHC 30.8 L, RDW Std Deviation 54.0 H, RDW Coeff of Orestes 16.0 H, Plt Count 306, MPV 11.6, Immature Gran % (Auto) 0.400, Neut % (Auto) 59.8, Lymph % (Auto) 21.2, [place] % (Auto) 13.9 H, Eos % (Auto) 4.1, Baso % (Auto) 0.6, Absolute Neuts (auto) 5.9, Absolute Lymphs (auto) 2.10, Nucleated RBC % 0 12/17/21 04:09: Sodium 141, Potassium 4.0, Chloride 110 H, Carbon Dioxide 25.0, Anion Gap 6, BUN 6 L, Creatinine 0.82, Estim Creat Clear Calc 48.33, Est GFR (MDRD) Af Amer 88, Est GFR (MDRD) Non-Af 72, BUN/Creatinine Ratio 7.3 L, Glucose 83, Calcium 8.4 L Physical Exam Const no apparent distress Resp normal respiratory effort GI GI Narrative: Patient's abdomen is nondistended and soft. There is expected tenderness to palpation over the left lower quadrant, but this is better tolerated then had been yesterday Assessment & Plan Assessment/Plan (1) Diverticulitis large intestine: PLAN: Patient is hospital day 2 for management of acute diverticular flare. She appears clinically better with decreased abdominal discomfort and an improvement in her leukocytosis such that her white count is now within normal limits. Given these improvements, agree with transition to clear liquid diet. If patient tolerates this today, would plan to transition to oral antibiotics and a full liquid diet tomorrow. Charges/Coding Visit Charges Inpatient E&M: 22434 Subs Hosp L2
--- NOTE | 2021-12-17 11:55 | CASEMGMT ---
SHABBIR CM in to pt room. Pt states she would like [facility] through [facility]. Pt states that she would be agreeable to SN and PT. She reports she has had colitis in the past but not this bad. Pt states her assists with bathing and her meals. YAMILA Flores at [facility], referral made. Will await acceptance.
[2021-12-17] MEDS: Ondansetron 4 MG/2 ML Vial IV (18:15)
[2021-12-17] MEDS: Acetaminophen 325 MG Tablet 650 MG PO (20:45)
[2021-12-17] MEDS: oxyCODONE 5 MG Tablet PO (20:45)
[2021-12-17] MEDS: Atorvastatin Calcium 10 MG Tablet PO (20:53)
[2021-12-17] MEDS: MELATONIN 3 MG TABLET PO (20:58)
[2021-12-18] VITALS (8 sets, daily range): BP systolic 92–111; BP diastolic 49–64; PULSE 76–82; RESP 16–18; TEMP 36.1–37.1; O2SAT 92–97
[2021-12-18] MEDS: 0.9% Saline Lock 10 ML Syringe IV ×3 (03:19→13:45)
[2021-12-18] MEDS: Morphine 4 MG/ML Syringe IV ×4 (03:19→19:48)
[2021-12-18] MEDS: Ondansetron 4 MG/2 ML Vial IV (03:26)
[2021-12-18 06:12] LABS: Absolute Lymphocyte Count 0.97 X10^3/uL (0.83-4.51); Absolute Neutrophil Count 11.4 X10^3/uL (2.0-7.7); Basophil# 0.06 X10^3/uL; Basophil% 0.4 % (0-1); Eosinophil# 0.35 X10^3/uL; Eosinophils% 2.4 % (0-5); Hematocrit 32.1 % (37-47); Hemoglobin 10.5 g/dL (12.0-15.0); Lymphocyte # 0.97 X10^3/ul (0.83-4.51); Lymphocyte % 6.6 % (19-41); Mean Corp Hgb Conc 32.7 g/dL (32-36); Mean Corpuscular Hgb 28.9 pg (27.0-32.0); Mean Corpuscular Volume 88.4 fL (81-99); Mean Platelet Vol. 11.4 fl (6.2-12.0); Monocyte# 1.72 X10^3/uL; Monocyte% 11.8 % (0-10); NRBC Flagged by Analyzer 0 % (0-5); Neutrophil # 11.43 X10^3/uL (2.7-7.7); Neutrophil % 78.2 % (47-70); POSITIVE DIFFERENTIAL YES; Platelet Count 279 K/mm3 (150-450); RBC Distribution Width CV 15.9 % (11.6-14.6); RBC Distribution Width SD 51.9 fl (35.1-43.9); Red Blood Count 3.63 M/mm3 (4.2-5.4); White Blood Count 14.6 K/mm3 (4.4-11.0)
[2021-12-18 06:21] LABS: Differential Indicated SCAN CRITERIA MET
[2021-12-18 06:37] LABS: Anisocytosis 1+
[2021-12-18 06:46] LABS: Anion Gap 6 (5-15); BUN 7 mg/dL (7-18); BUN/Creat Ratio 9.9 RATIO (10-20); Chloride 113 mmol/L (98-107); Creatinine, Serum 0.71 mg/dL (0.55-1.02); EST Glomerular Filtration Rate 86 mL/min (>60); Est Glom Filt Rate - Afr Amer 104 mL/min (>60); Estimated Creatinine Clearance 39.63 ml/min; Glucose 109 mg/dL (74-106); Sodium Level 142 mmol/L (136-145)
--- NOTE | 2021-12-18 07:24 | PCM.PN.HOSP ---
Subjective Subjective Patient seen pain is much worse than the day before. WBC count trending up. Physical examination did reveal significant tenderness in the left lower quadrant abdominal pain. Subsequent evaluation with CAT scan ordered. Plan is to discuss with general surgery following receipt of CT results Objective Data Objective Data Vital Signs: Vital Signs Temp Pulse Resp BP Pulse Ox 97 F L 76 16 98/49 L 97 12/18/21 01:55 12/18/21 01:55 12/18/21 01:55 12/18/21 01:55 12/18/21 01:55 Oxygen Delivery Method Room Air Weight: 89.2 kg Body Mass Index (BMI) 33.4 Intake & Output: Intake and Output for Last 24 Hours 12/16/21 12/17/21 12/18/21 23:59 23:59 23:59 Intake Total 2865.00 / 2865.00 3405.00 / 3405.00 50 / 50 Output Total 500 / 500 Balance 2865.00 / 2565.00 2905.00 / 2905.00 50 / 50 Lab / Micro Data Result Diagrams: 12/18/21 06:00 12/18/21 06:00 Labs: Laboratory Results - last 24 hr 12/18/21 06:00: WBC 14.6 H, RBC 3.63 L, Hgb 10.5 L, Hct 32.1 L, MCV 88.4, MCH 28.9, MCHC 32.7 D, RDW Std Deviation 51.9 H, RDW Coeff of Orestes 15.9 H, Plt Count 279, MPV 11.4, Immature Gran % (Auto) 0.600, Neut % (Auto) 78.2 H, Lymph % (Auto) 6.6 L, [place] % (Auto) 11.8 H, Eos % (Auto) 2.4, Baso % (Auto) 0.4, Absolute Neuts (auto) 11.4 H, Absolute Lymphs (auto) 0.97, Nucleated RBC % 0, Diff Path Review May foll, Anisocytosis 1+ 12/18/21 06:00: Sodium 142, Potassium 4.0, Chloride 113 H, Carbon Dioxide 23.0, Anion Gap 6, BUN 7, Creatinine 0.71, Estim Creat Clear Calc 39.63, Est GFR (MDRD) Af Amer 104, Est GFR (MDRD) Non-Af 86, BUN/Creatinine Ratio 9.9 L, Glucose 109 H, Calcium 8.0 L Physical Exam Narrative GENERAL: cooperative HEENT: Atraumatic; EYES; Anicteric, Normal Conjunctiva NECK; supple, normal thyroid, RESPIRATORY: Diminished to auscultation CARDIOVASCULAR: Regular S1 S2, GI: soft, normoactive bowel sounds, : No Renal angle tenderness; EXTREMITIES: No edema, no clubbing, MUSCULOSKELETAL: no muscle wasting NEURO: Awake; no lateralizing signs. SKIN: No Rash PSYCH; Flat affect Assessment & Plan Assessment/Plan (1) Colitis: PLAN: Patient is a 71-year-old lady with a history of diverticulitis who presented with abdominal pain. Imaging studies obtained on admission demonstrated Focal inflammatory change of the mid to distal colon over a segment of 7.3 cm wall thickening stranding edema narrowing of the lumen.. There is a small focal outpouching which may represent elongated diverticulum versus a small focal contained micro leak. Consider focal diverticulitis without exclusion of a focal neoplastic lesion given the focality of the inflammation and narrowing of the lumen. There is diffuse edema of the colon from this area to the rectum compatible with colitis. There is also mild wall thickening and edema of the cecum 1. Abdominal pain secondary to combination of colitis with questionable diverticulitis with microperforation ?Admitted to regular nursing floor started on broad-spectrum antibiotic therapy with consultation placed to general surgery -12/17/2021;Patient seen still complains of lower left quadrant abdominal pain ?12/18/2021;Patient seen pain is much worse than the day before. WBC count trending up. Physical examination did reveal significant tenderness in the left lower quadrant abdominal pain. Subsequent evaluation with CAT scan ordered. Plan is to discuss with general surgery following receipt of CT results 2. Hypokalemia -Corrected per protocol with repeat labs ordered for monitoring 3. Coronary artery disease ?With previous PCI. Patient on recommended medications 4. Hypertension - Blood pressure controlled, home medications continued with dose adjustment as needed 5. Dyslipidemia -Patient is on statin therapy, continued at home dose 6. Paroxysmal A. fib ?Rate controlled on metoprolol and systemic anticoagulation with apixaban 7. History of granulomatosis with polyangiitis (Tami's granulomatosis) ?Patient managed at [facility] 8. Coronary artery disease ?Status postmastectomy with subsequent radiation. Patient currently in remission 9. Depression with anxiety ?Patient is on fluoxetine 10. DVT prophylaxis ?Is on apixaban did continue Charges/Coding Visit Charges Inpatient E&M: 86201 Subs Hosp L3
[2021-12-18] MEDS: 0.9% Normal Saline 1,000 ML 100 ML IV ×2 (08:59→19:45)
--- NOTE | 2021-12-18 09:00 | CT_ITS ---
STUDY: CT ABDOMEN AND PELVIS WITH CONTRAST REASON FOR EXAM: Female, 71 years old. Diverticulitis. RADIATION DOSAGE (If Supplied By Facility): CTDIvol = ( 15.93 ) mGy, DLP = ( 1126.06 ) mGycm TECHNIQUE: Transaxial images were obtained from the dome of the diaphragm to the symphysis pubis with oral contrast. Oral and amp; IV Gastrografin and amp; 100mL Isovue-300 was administered. Sagittal and coronal images were reconstructed. Individualized dose optimization techniques were used for this CT. COMPARISON: Comparison is made with prior study dated 12/16/2021. FINDINGS: Bilateral breast implants are visualized. The visualized lung bases are unremarkable. The visualized portions of the heart are within normal limits. Normal liver. There are multiple gallstones. Gallstones are also seen in the neck of the gallbladder as well as within the proximal common bile duct. Normal spleen. Normal pancreas. Normal bilateral adrenal glands. Normal right kidney. Normal left kidney. Once again, there is evidence of a lap band surrounding the proximal stomach with a tube extending into the left-sided abdomen and exits the right side of the abdomen. Normal small intestine. There is diverticulosis, with thickening of the colon wall, and pericolonic inflammation changes consistent with acute diverticulitis. The inflammatory changes have progressed although no focal abscess is seen at this time. Once again, punctate air bubbles are seen within the localized mesenteric fat. Mild degree of increased markings are also seen in the region of the cecum with thickening of the right paracolic gutter. The appendix is visualized and appears normal. There is diffuse atherosclerotic calcification of the abdominal aorta, without a demonstrated aneurysm. Normal inferior vena cava. Normal retroperitoneum. Normal urinary bladder. A small amount of fluid is seen within the cul-de-sac. Normal abdominal wall. There are diffuse degenerative changes of the visualized lumbar spine. CT/Abdomen/Pelvis WITH Contrast IMPRESSION: Persistent acute sigmoid diverticulitis which has progressed as compared to prior study although no focal abscesses seen. A small amount of free fluid is seen in the pelvis. Gallstones. Stones are also seen in the proximal portion of the common bile duct. Electronically Signed: Jordan Adame MD at 13:43 EST ,
--- NOTE | 2021-12-18 09:57 | PCM.PN.SRG ---
Subjective Subjective Patient was visited during AM rounds. However, she was on the commode at the time of my visit and the exam opportunity was not possible. She states that she has had 3 bowel movements over the last 24 hours and this is led to intensification of her left lower quadrant pain. She rates this now the 10 out of 10. She states that right side of her abdomen remains completely benign. With these toileting times, she denies any report of pneumaturia. Patient is revisited during afternoon rounds. She states that she has been jostled about for her CT scan and her abdominal pain remains significant, but improved from this morning. Objective Data Objective Data Vital Signs: Vital Signs Temp Pulse Resp BP Pulse Ox 97.8 F 79 16 92/62 96 12/18/21 08:00 12/18/21 08:00 12/18/21 08:00 12/18/21 08:00 12/18/21 08:10 Oxygen Delivery Method Room Air Weight: 196 lb 10.437 oz Body Mass Index (BMI) 33.4 Intake & Output: Intake and Output for Last 24 Hours 12/16/21 12/17/21 12/18/21 23:59 23:59 23:59 Intake Total 2865.00 / 2865.00 3405.00 / 3405.00 1028.33 / 1028.33 Output Total 500 / 500 Balance 2865.00 / 2565.00 2905.00 / 2905.00 1028.33 / 1028.33 Lab / Micro Data Result Diagrams: 12/18/21 06:00 12/18/21 06:00 Labs: Laboratory Results - last 24 hr 12/18/21 06:00: WBC 14.6 H, RBC 3.63 L, Hgb 10.5 L, Hct 32.1 L, MCV 88.4, MCH 28.9, MCHC 32.7 D, RDW Std Deviation 51.9 H, RDW Coeff of Orestes 15.9 H, Plt Count 279, MPV 11.4, Immature Gran % (Auto) 0.600, Neut % (Auto) 78.2 H, Lymph % (Auto) 6.6 L, [place] % (Auto) 11.8 H, Eos % (Auto) 2.4, Baso % (Auto) 0.4, Absolute Neuts (auto) 11.4 H, Absolute Lymphs (auto) 0.97, Nucleated RBC % 0, Diff Path Review May foll, Anisocytosis 1+ 12/18/21 06:00: Sodium 142, Potassium 4.0, Chloride 113 H, Carbon Dioxide 23.0, Anion Gap 6, BUN 7, Creatinine 0.71, Estim Creat Clear Calc 39.63, Est GFR (MDRD) Af Amer 104, Est GFR (MDRD) Non-Af 86, BUN/Creatinine Ratio 9.9 L, Glucose 109 H, Calcium 8.0 L Physical Exam Const Constitutional Narrative: Appears in some discomfort Resp normal respiratory effort GI GI Narrative: Nondistended, soft, tender to palpation in the left abdomen Assessment & Plan Assessment & Plan (1) Colitis: (2) Diverticulitis large intestine: Plan: Patient is a 71-year-old female hospital day 3 for complicated diverticulitis. She had intensification of her pain with return of bowel function. There has also been an increase in her white count today. Her exam is rather consistent with what she is experiencing after hospital day 1 but seems to be improving with more rest now. Hospitalist has reordered CT imaging. This looks consistent with her admission imaging. Unfortunately, I do not see clearly discernible/accessible abscess that might be accessed percutaneously. With the patient's increased medical risk, advocate continued conservative measures. Would continue clear liquid diet and IV antibiotics today.
--- NOTE | 2021-12-18 11:12 | NURSING ---
off the unit via bed for procedure
[2021-12-18] MEDS: APIXABAN 5 MG TABLET PO ×2 (11:47→21:17)
[2021-12-18] MEDS: Metoprolol Tartrate 25 MG Tablet 12.5 MG PO ×2 (11:48→22:13)
[2021-12-18] MEDS: FLUoxetine 20 MG Capsule PO (11:48)
[2021-12-18] MEDS: Aspirin E.C. 81 MG Tablet PO (11:48)
[2021-12-18] MEDS: MELATONIN 3 MG TABLET PO (21:16)
[2021-12-18] MEDS: Atorvastatin Calcium 10 MG Tablet PO (21:17)
[2021-12-19] VITALS (8 sets, daily range): BP systolic 94–123; BP diastolic 52–93; PULSE 69–78; RESP 16–18; TEMP 36.5–36.7; O2SAT 94–98
[2021-12-19] MEDS: oxyCODONE 5 MG Tablet PO (00:13)
--- NOTE | 2021-12-19 02:05 | PCM.HOSP.N ---
Hospitalist Note Cdiff studies returned positive. Will D/C zosyn and start oral vanc.
[2021-12-19] MEDS: Vancomycin HCl 250 MG Capsule 500 MG PO ×3 (03:15→17:23)
[2021-12-19 04:57] LABS: Absolute Lymphocyte Count 1.24 X10^3/uL (0.83-4.51); Absolute Neutrophil Count 9.3 X10^3/uL (2.0-7.7); Basophil# 0.03 X10^3/uL; Basophil% 0.2 % (0-1); Eosinophil# 0.41 X10^3/uL; Eosinophils% 3.3 % (0-5); Hematocrit 31.6 % (37-47); Hemoglobin 9.9 g/dL (12.0-15.0); Lymphocyte # 1.24 X10^3/ul (0.83-4.51); Mean Corp Hgb Conc 31.3 g/dL (32-36); Mean Corpuscular Hgb 28.5 pg (27.0-32.0); Mean Corpuscular Volume 91.1 fL (81-99); Mean Platelet Vol. 11.4 fl (6.2-12.0); Monocyte# 1.38 X10^3/uL; Monocyte% 11.1 % (0-10); NRBC Flagged by Analyzer 0 % (0-5); Neutrophil # 9.32 X10^3/uL (2.7-7.7); Neutrophil % 74.8 % (47-70); Platelet Count 283 K/mm3 (150-450); RBC Distribution Width CV 16.2 % (11.6-14.6); RBC Distribution Width SD 54.3 fl (35.1-43.9); Red Blood Count 3.47 M/mm3 (4.2-5.4); White Blood Count 12.5 K/mm3 (4.4-11.0)
[2021-12-19 05:20] LABS: Anion Gap 5 (5-15); BUN 5 mg/dL (7-18); Calcium,Total 7.6 mg/dL (8.5-10.1); Chloride 111 mmol/L (98-107); Creatinine, Serum 0.72 mg/dL (0.55-1.02); EST Glomerular Filtration Rate 85 mL/min (>60); Est Glom Filt Rate - Afr Amer 103 mL/min (>60); Estimated Creatinine Clearance 39.63 ml/min; Glucose 87 mg/dL (74-106); Potassium 2.9 mmol/L (3.5-5.1); Sodium Level 140 mmol/L (136-145)
[2021-12-19] MEDS: 0.9% Normal Saline 1,000 ML 100 ML IV (06:32)
--- NOTE | 2021-12-19 06:58 | PCM.PN.SRG ---
Subjective Subjective Patient's PCR for C. difficile was positive. Patient was started on vancomycin p.o. and Zosyn was stopped?last night. Patient still complains of increased pain with bowel movements which she does have nausea and vomiting due to the pain with this otherwise if she is able to lay still and not be having the bowel movements she has no abdominal pain but it can still be tender if she presses in the left lower quadrant. White blood count improved from 14-12.5 today Objective Data Objective Data Vital Signs: Vital Signs Temp Pulse Resp BP Pulse Ox 98.1 F 72 18 104/66 98 12/19/21 03:15 12/19/21 03:15 12/19/21 03:15 12/19/21 03:15 12/19/21 03:15 Oxygen Delivery Method Room Air Weight: 197 lb 1.492 oz Body Mass Index (BMI) 33.4 Intake & Output: Intake and Output for Last 24 Hours 12/17/21 12/18/21 12/19/21 23:59 23:59 23:59 Intake Total 3405.00 / 3405.00 2448.33 / 2448.33 960 / 960 Output Total 500 / 500 Balance 2905.00 / 2905.00 2448.33 / 2448.33 960 / 960 Lab / Micro Data Result Diagrams: 12/19/21 04:07 12/19/21 04:07 Labs: Laboratory Results - last 24 hr 12/19/21 04:07: WBC 12.5 H, RBC 3.47 L, Hgb 9.9 L, Hct 31.6 L, MCV 91.1, MCH 28.5, MCHC 31.3 L, RDW Std Deviation 54.3 H, RDW Coeff of Orestes 16.2 H, Plt Count 283, MPV 11.4, Immature Gran % (Auto) 0.600, Neut % (Auto) 74.8 H, Lymph % (Auto) 10.0 L, [place] % (Auto) 11.1 H, Eos % (Auto) 3.3, Baso % (Auto) 0.2, Absolute Neuts (auto) 9.3 H, Absolute Lymphs (auto) 1.24, Nucleated RBC % 0 12/19/21 04:07: Sodium 140, Potassium 2.9 L, Chloride 111 H, Carbon Dioxide 24.0, Anion Gap 5, BUN 5 L, Creatinine 0.72, Estim Creat Clear Calc 39.63, Est GFR (MDRD) Af Amer 103, Est GFR (MDRD) Non-Af 85, BUN/Creatinine Ratio 7.0 L, Glucose 87, Calcium 7.6 L Micro: Microbiology 12/18/21 13:00 Stool C. difficile GDH Antigen & Toxins - Final Toxigenic C. difficile 12/18/21 13:00 Stool C. difficile DNA Amplification - Final 12/18/21 13:00 Stool Enteric Bacteriology - Final Radiography Diagnostic Testing: Radiology Impression Abdomen/Pelvis CT 12/18/21 09:00 IMPRESSION: Persistent acute sigmoid diverticulitis which has progressed as compared to prior study although no focal abscesses seen. A small amount of free fluid is seen in the pelvis. Gallstones. Stones are also seen in the proximal portion of the common bile duct. Electronically Signed: Jordan Adame MD at 13:43 EST , Physical Exam Const oriented x3 and no apparent distress Resp normal respiratory effort Cardio regular rate GI soft to palpation Inspection: Negative for abdominal distention Palpation: tender LLQ Assessment & Plan Assessment/Plan (1) C. difficile colitis: (2) Paroxysmal atrial fibrillation: PLAN: Patient's C. difficile PCR was positive. Patient was changed from Zosyn to vancomycin p.o. Plan to continue conservative treatment continue on clear liquids until patient's pain improves. Patient continues on her Eliquis for paroxysmal A. fib?managed by primary Mary Jo Diez M.D. Pager: [phone] [facility] [address] [place] [address], Outpatient [place], [address] [place] [address] Office: [phone] Charges/Coding Visit Charges Inpatient E&M: 32150 Subs Hosp L2
--- NOTE | 2021-12-19 07:16 | PCM.PN.HOSP ---
Subjective Subjective Patient stool studies positive for C. difficile (both toxin and antigen). Subsequently started on vancomycin. Objective Data Objective Data Vital Signs: Vital Signs Temp Pulse Resp BP Pulse Ox 98.1 F 72 18 104/66 98 12/19/21 03:15 12/19/21 03:15 12/19/21 03:15 12/19/21 03:15 12/19/21 03:15 Oxygen Delivery Method Room Air Weight: 89.4 kg Body Mass Index (BMI) 33.4 Intake & Output: Intake and Output for Last 24 Hours 12/17/21 12/18/21 12/19/21 23:59 23:59 23:59 Intake Total 3405.00 / 3405.00 2448.33 / 2448.33 960 / 960 Output Total 500 / 500 Balance 2905.00 / 2905.00 2448.33 / 2448.33 960 / 960 Lab / Micro Data Result Diagrams: 12/19/21 04:07 12/19/21 04:07 Labs: Laboratory Results - last 24 hr 12/19/21 04:07: WBC 12.5 H, RBC 3.47 L, Hgb 9.9 L, Hct 31.6 L, MCV 91.1, MCH 28.5, MCHC 31.3 L, RDW Std Deviation 54.3 H, RDW Coeff of Orestes 16.2 H, Plt Count 283, MPV 11.4, Immature Gran % (Auto) 0.600, Neut % (Auto) 74.8 H, Lymph % (Auto) 10.0 L, [place] % (Auto) 11.1 H, Eos % (Auto) 3.3, Baso % (Auto) 0.2, Absolute Neuts (auto) 9.3 H, Absolute Lymphs (auto) 1.24, Nucleated RBC % 0 12/19/21 04:07: Sodium 140, Potassium 2.9 L, Chloride 111 H, Carbon Dioxide 24.0, Anion Gap 5, BUN 5 L, Creatinine 0.72, Estim Creat Clear Calc 39.63, Est GFR (MDRD) Af Amer 103, Est GFR (MDRD) Non-Af 85, BUN/Creatinine Ratio 7.0 L, Glucose 87, Calcium 7.6 L Micro: Microbiology 12/18/21 13:00 Stool C. difficile GDH Antigen & Toxins - Final Toxigenic C. difficile 02/11/22 13:00 Stool C. difficile DNA Amplification - Final 12/18/21 13:00 Stool Enteric Bacteriology - Final Radiography Diagnostic Testing: Radiology Impression Abdomen/Pelvis CT 12/18/21 09:00 IMPRESSION: Persistent acute sigmoid diverticulitis which has progressed as compared to prior study although no focal abscesses seen. A small amount of free fluid is seen in the pelvis. Gallstones. Stones are also seen in the proximal portion of the common bile duct. Electronically Signed: Jordan Adame MD at 13:43 EST , Physical Exam Narrative GENERAL: cooperative HEENT: Atraumatic; EYES; Anicteric, Normal Conjunctiva NECK; supple, normal thyroid, RESPIRATORY: Diminished to auscultation CARDIOVASCULAR: Regular S1 S2, GI: soft, normoactive bowel sounds, : No Renal angle tenderness; EXTREMITIES: No edema, no clubbing, MUSCULOSKELETAL: no muscle wasting NEURO: Awake; no lateralizing signs. SKIN: No Rash PSYCH; Flat affect Assessment & Plan Assessment/Plan (1) Colitis: PLAN: Patient is a 71-year-old lady with a history of diverticulitis who presented with abdominal pain. Imaging studies obtained on admission demonstrated Focal inflammatory change of the mid to distal colon over a segment of 7.3 cm wall thickening stranding edema narrowing of the lumen.. There is a small focal outpouching which may represent elongated diverticulum versus a small focal contained micro leak. Consider focal diverticulitis without exclusion of a focal neoplastic lesion given the focality of the inflammation and narrowing of the lumen. There is diffuse edema of the colon from this area to the rectum compatible with colitis. There is also mild wall thickening and edema of the cecum 1. Abdominal pain secondary to combination of colitis with questionable diverticulitis with microperforation ?Admitted to regular nursing floor started on broad-spectrum antibiotic therapy with consultation placed to general surgery -12/17/2021;Patient seen still complains of lower left quadrant abdominal pain ?12/18/2021;Patient seen pain is much worse than the day before. WBC count trending up. Physical examination did reveal significant tenderness in the left lower quadrant abdominal pain. Subsequent evaluation with CAT scan ordered. Plan is to discuss with general surgery following receipt of CT results ?10/18/2022; CT results reviewed. Case discussed with general surgery. Plan is to continue patient on clear liquid. Antibiotics adjusted in view of her positive C. difficile results 2. Acute C. difficile colitis 12/19/2021; Patient stool studies positive for C. difficile (both toxin and antigen). Subsequently started on vancomycin. 3. Hypokalemia -Corrected per protocol with repeat labs ordered for monitoring ?Patient potassium significantly low this a.m. additional potassium given fluids adjusted subsequent monitoring with daily BMPs ordered 4. Hypertension - Blood pressure controlled, home medications continued with dose adjustment as needed 5. Dyslipidemia -Patient is on statin therapy, continued at home dose 6. Paroxysmal A. fib ?Rate controlled on metoprolol and systemic anticoagulation with apixaban 7. History of granulomatosis with polyangiitis (Tami's granulomatosis) ?Patient managed at [facility] 8. Coronary artery disease ?Status postmastectomy with subsequent radiation. Patient currently in remission 9. Depression with anxiety ?Patient is on fluoxetine 10. Coronary artery disease ?With previous PCI. Patient on recommended medications prophylaxis ?Is on apixaban did continue Charges/Coding Visit Charges Inpatient E&M: 45032 [facility] Hosp L3
[2021-12-19] MEDS: Ondansetron 4 MG/2 ML Vial IV (07:52)
[2021-12-19] MEDS: Morphine 4 MG/ML Syringe IV (07:52)
[2021-12-19] MEDS: 0.9% Saline Lock 10 ML Syringe IV (07:52)
[2021-12-19] MEDS: FLUoxetine 20 MG Capsule PO (09:27)
[2021-12-19] MEDS: Aspirin E.C. 81 MG Tablet PO (09:28)
[2021-12-19] MEDS: Metoprolol Tartrate 25 MG Tablet 12.5 MG PO (09:28)
[2021-12-19] MEDS: APIXABAN 5 MG TABLET PO ×2 (09:28→20:31)
[2021-12-19] MEDS: Potassium Chloride 10mEq/100mL 10 MEQ/100 ML IV.SOLN. 100 MEQ IV BOLUS ×4 (09:35→13:38)
[2021-12-19] MEDS: Atorvastatin Calcium 10 MG Tablet PO (20:30)
[2021-12-19] MEDS: MELATONIN 3 MG TABLET PO (20:35)
[2021-12-20] MEDS: Vancomycin HCl 250 MG Capsule 500 MG PO ×5 (00:01→23:46)
[2021-12-20 01:56] VITALS: BP 124/67; PULSE 84; RESP 18; TEMP 36.6; O2SAT 96
[2021-12-20] MEDS: Ondansetron 4 MG/2 ML Vial IV ×3 (03:25→23:46)
--- NOTE | 2021-12-20 07:46 | PN.HOSP_ITS ---
Subjective Subjective Patient seen still complains of loose bowel movement Objective Data Objective Data Vital Signs: Vital Signs Temp Pulse Resp BP Pulse Ox 97.8 F 84 18 124/67 H 96 12/20/21 01:56 12/20/21 01:56 12/20/21 01:56 12/20/21 01:56 12/20/21 01:56 Oxygen Delivery Method Room Air Weight: 92.7 kg Body Mass Index (BMI) 33.4 Intake & Output: Intake and Output for Last 24 Hours 12/18/21 12/19/21 12/20/21 23:59 23:59 23:59 Intake Total 2448.33 / 2448.33 3213.75 / 3363.75 970.83 / 970.83 Balance 2448.33 / 2448.33 3213.75 / 3363.75 970.83 / 970.83 Lab / Micro Data Result Diagrams: 12/20/21 09:10 12/20/21 09:10 Micro: Microbiology 12/18/21 13:00 Stool C. difficile GDH Antigen & Toxins - Final Toxigenic C. difficile 12/18/21 13:00 Stool C. difficile DNA Amplification - Final 12/18/21 13:00 Stool Enteric Bacteriology - Final Physical Exam Narrative GENERAL: cooperative HEENT: Atraumatic; EYES; Anicteric, Normal Conjunctiva NECK; supple, normal thyroid, RESPIRATORY: Diminished to auscultation CARDIOVASCULAR: Regular S1 S2, GI: soft, normoactive bowel sounds, : No Renal angle tenderness; EXTREMITIES: No edema, no clubbing, MUSCULOSKELETAL: no muscle wasting NEURO: Awake; no lateralizing signs. SKIN: No Rash PSYCH; Flat affect Assessment & Plan Assessment/Plan (1) Colitis: PLAN: Patient is a 71-year-old lady with a history of diverticulitis who presented with abdominal pain. Imaging studies obtained on admission demonstrated Focal inflammatory change of the mid to distal colon over a segment of 7.3 cm wall thickening stranding edema narrowing of the lumen.. There is a small focal outpouching which may represent elongated diverticulum versus a small focal contained micro leak. Consider focal diverticulitis without exclusion of a focal neoplastic lesion given the focality of the inflammation and narrowing of the lumen. There is diffuse edema of the colon from this area to the rectum compatible with colitis. There is also mild wall thickening and edema of the cecum 1. Abdominal pain secondary to combination of colitis with questionable diverticulitis with microperforation ?Admitted to regular nursing floor started on broad-spectrum antibiotic therapy with consultation placed to general surgery -12/17/2021;Patient seen still complains of lower left quadrant abdominal pain ?12/18/2021;Patient seen pain is much worse than the day before. WBC count trending up. Physical examination did reveal significant tenderness in the left lower quadrant abdominal pain. Subsequent evaluation with CAT scan ordered. Plan is to discuss with general surgery following receipt of CT results ?10/18/2022; CT results reviewed. Case discussed with general surgery. Plan is to continue patient on clear liquid. Antibiotics adjusted in view of her positive C. difficile results 2. Acute C. difficile colitis 12/19/2021; Patient stool studies positive for C. difficile (both toxin and antigen). Subsequently started on vancomycin. ?12/20/2021 still complains of loose bowel movement 3. Hypokalemia -Corrected per protocol with repeat labs ordered for monitoring ?Patient potassium significantly low this a.m. additional potassium given fluids adjusted subsequent monitoring with daily BMPs ordered 4. Hypertension - Blood pressure controlled, home medications continued with dose adjustment as needed 5. Dyslipidemia -Patient is on statin therapy, continued at home dose 6. Paroxysmal A. fib ?Rate controlled on metoprolol and systemic anticoagulation with apixaban 7. History of granulomatosis with polyangiitis (Tami's granulomatosis) ?Patient managed at [facility]. Patient was on Bactrim for PCP prophylaxis in view of chemotherapy 8. Coronary artery disease ?Status postmastectomy with subsequent radiation. Patient currently in remission 9. Depression with anxiety ?Patient is on fluoxetine 10. Coronary artery disease ?With previous PCI. Patient on recommended medications 11. Physical deconditioning - Requested for PT OT eval and social services designee to assist with discharge planning 12. DVT prophylaxis ?Is on apixaban did continue Charges/Coding Visit Charges Inpatient E&M: 23368 Subs Hosp L2
--- NOTE | 2021-12-20 08:03 | PN.SURG_ITS ---
Subjective Subjective Patient states abdominal pain is better. Labs are pending. Patient also is still having diarrhea Objective Data Objective Data Vital Signs: Vital Signs Temp Pulse Resp BP Pulse Ox 97.8 F 84 18 124/67 H 96 12/20/21 01:56 12/20/21 01:56 12/20/21 01:56 12/20/21 01:56 12/20/21 01:56 Oxygen Delivery Method Room Air Weight: 204 lb 5.896 oz Body Mass Index (BMI) 33.4 Intake & Output: Intake and Output for Last 24 Hours 12/18/21 12/19/21 12/20/21 23:59 23:59 23:59 Intake Total 2448.33 / 2448.33 3213.75 / 3363.75 970.83 / 970.83 Balance 2448.33 / 2448.33 3213.75 / 3363.75 970.83 / 970.83 Lab / Micro Data Result Diagrams: 12/19/21 04:07 12/19/21 04:07 Micro: Microbiology 12/18/21 13:00 Stool C. difficile GDH Antigen & Toxins - Final Toxigenic C. difficile 12/18/21 13:00 Stool C. difficile DNA Amplification - Final 12/18/21 13:00 Stool Enteric Bacteriology - Final Physical Exam Const oriented x3 and no apparent distress Resp normal respiratory effort Cardio regular rate GI soft to palpation Inspection: Negative for abdominal distention Palpation: Negative for tender Assessment & Plan Assessment/Plan (1) C. difficile colitis: (2) Paroxysmal atrial fibrillation: PLAN: Patient's C. difficile PCR was positive. Patient was changed from Zosyn to vancomycin p.o. Plan to continue conservative treatment will advance to full liquids. Patient continues on her Eliquis for paroxysmal A. fib?managed by primary Mary Jo Diez M.D. Pager: [phone] [facility] [address] [place] [address], Outpatient [place], [address] [place] [address] Office: [phone] Charges/Coding Visit Charges Inpatient E&M: 24998 Subs Hosp L2
[2021-12-20 09:18] VITALS: BP 104/55; PULSE 78; RESP 16; TEMP 36.3; O2SAT 97
[2021-12-20 09:31] VITALS: PULSE 78
[2021-12-20] MEDS: APIXABAN 5 MG TABLET PO ×2 (09:31→20:22)
[2021-12-20] MEDS: FLUoxetine 20 MG Capsule PO (09:31)
[2021-12-20] MEDS: Metoprolol Tartrate 25 MG Tablet 12.5 MG PO ×2 (09:31→20:21)
[2021-12-20] MEDS: Aspirin E.C. 81 MG Tablet PO (09:31)
[2021-12-20] MEDS: Potassium Chloride Oral Tablet 20 MEQ PO ×2 (09:41→17:59)
[2021-12-20 09:44] LABS: Absolute Neutrophil Count 8.7 X10^3/uL (2.0-7.7); Basophil# 0.05 X10^3/uL; Basophil% 0.4 % (0-1); Eosinophil# 0.46 X10^3/uL; Eosinophils% 3.9 % (0-5); Hematocrit 33.8 % (37-47); Hemoglobin 10.1 g/dL (12.0-15.0); Lymphocyte % 10.1 % (19-41); Mean Corp Hgb Conc 29.9 g/dL (32-36); Mean Corpuscular Hgb 28.1 pg (27.0-32.0); Mean Corpuscular Volume 93.9 fL (81-99); Mean Platelet Vol. 10.9 fl (6.2-12.0); Monocyte# 1.37 X10^3/uL; Monocyte% 11.6 % (0-10); NRBC Flagged by Analyzer 0 % (0-5); Neutrophil % 73.4 % (47-70); Platelet Count 292 K/mm3 (150-450); RBC Distribution Width CV 16.4 % (11.6-14.6); RBC Distribution Width SD 57.7 fl (35.1-43.9); White Blood Count 11.9 K/mm3 (4.4-11.0)
[2021-12-20 09:51] LABS: Anion Gap 6 (5-15); BUN 3 mg/dL (7-18); BUN/Creat Ratio 4.1 RATIO (10-20); Calcium,Total 7.8 mg/dL (8.5-10.1); Chloride 112 mmol/L (98-107); Creatinine, Serum 0.73 mg/dL (0.55-1.02); EST Glomerular Filtration Rate 83 mL/min (>60); Est Glom Filt Rate - Afr Amer 101 mL/min (>60); Estimated Creatinine Clearance 39.63 ml/min; Glucose 133 mg/dL (74-106); Potassium 3.5 mmol/L (3.5-5.1); Sodium Level 138 mmol/L (136-145)
[2021-12-20] MEDS: 0.9% Saline Lock 10 ML Syringe IV (15:37)
[2021-12-20 16:08] VITALS: BP 97/58; PULSE 75; RESP 16; TEMP 36.2; O2SAT 97
[2021-12-20 20:21] VITALS: BP 134/68; PULSE 84
[2021-12-20] MEDS: Atorvastatin Calcium 10 MG Tablet PO (20:22)
[2021-12-20] MEDS: MELATONIN 3 MG TABLET PO (20:22)
[2021-12-20 20:23] VITALS: BP 134/68; PULSE 84; RESP 18; TEMP 36.2; O2SAT 97
[2021-12-21 02:05] VITALS: BP 116/59; PULSE 77; RESP 18; TEMP 36.2; O2SAT 98
[2021-12-21] MEDS: Vancomycin HCl 250 MG Capsule 500 MG PO ×2 (06:11→12:23)
[2021-12-21 06:42] LABS: Absolute Lymphocyte Count 1.18 X10^3/uL (0.83-4.51); Absolute Neutrophil Count 9.7 X10^3/uL (2.0-7.7); Basophil# 0.04 X10^3/uL; Basophil% 0.3 % (0-1); Eosinophil# 0.28 X10^3/uL; Eosinophils% 2.2 % (0-5); Hematocrit 32.5 % (37-47); Hemoglobin 10.2 g/dL (12.0-15.0); Lymphocyte # 1.18 X10^3/ul (0.83-4.51); Lymphocyte % 9.3 % (19-41); Mean Corp Hgb Conc 31.4 g/dL (32-36); Mean Corpuscular Volume 89.3 fL (81-99); Mean Platelet Vol. 10.7 fl (6.2-12.0); Monocyte# 1.33 X10^3/uL; Monocyte% 10.5 % (0-10); NRBC Flagged by Analyzer 0 % (0-5); Neutrophil # 9.73 X10^3/uL (2.7-7.7); Neutrophil % 77.1 % (47-70); Platelet Count 342 K/mm3 (150-450); RBC Distribution Width CV 16.2 % (11.6-14.6); RBC Distribution Width SD 53.4 fl (35.1-43.9); Red Blood Count 3.64 M/mm3 (4.2-5.4); White Blood Count 12.6 K/mm3 (4.4-11.0)
[2021-12-21 07:16] LABS: Anion Gap 3 (5-15); BUN 2 mg/dL (7-18); BUN/Creat Ratio 3.1 RATIO (10-20); Calcium,Total 8.2 mg/dL (8.5-10.1); Chloride 114 mmol/L (98-107); Creatinine, Serum 0.65 mg/dL (0.55-1.02); EST Glomerular Filtration Rate 95 mL/min (>60); Est Glom Filt Rate - Afr Amer 115 mL/min (>60); Estimated Creatinine Clearance 39.63 ml/min; Glucose 128 mg/dL (74-106); Potassium 3.8 mmol/L (3.5-5.1); Sodium Level 140 mmol/L (136-145)
--- NOTE | 2021-12-21 07:51 | PCM.PN.SRG ---
Subjective Subjective Patient found resting in bed. She reports that her left-sided abdominal pain is completely resolved. Her major complaint is for ongoing loose bowel movements that occur about every hour and a half. She believes this may be in part due to her prescribed potassium. She also feels like she is very swollen and believes that she is gaining some 28 pounds of water weight. Objective Data Objective Data Vital Signs: Vital Signs Temp Pulse Resp BP Pulse Ox 97.1 F L 77 18 116/59 L 98 12/21/21 02:05 12/21/21 02:05 12/21/21 02:05 12/21/21 02:05 12/21/21 02:05 Oxygen Delivery Method Room Air Weight: 207 lb 10.807 oz Body Mass Index (BMI) 33.4 Intake & Output: Intake and Output for Last 24 Hours 12/19/21 12/20/21 12/21/21 23:59 23:59 23:59 Intake Total 3213.75 / 3363.75 3082.50 / 3082.50 1072.92 / 1072.92 Balance 3213.75 / 3363.75 3082.50 / 3082.50 1072.92 / 1072.92 Lab / Micro Data Result Diagrams: 12/21/21 06:35 12/21/21 06:35 Labs: Laboratory Results - last 24 hr 12/20/21 09:10: WBC 11.9 H, RBC 3.60 L, Hgb 10.1 L, Hct 33.8 L, MCV 93.9, MCH 28.1, MCHC 29.9 L, RDW Std Deviation 57.7 H, RDW Coeff of Orestes 16.4 H, Plt Count 292, MPV 10.9, Immature Gran % (Auto) 0.600, Neut % (Auto) 73.4 H, Lymph % (Auto) 10.1 L, [place] % (Auto) 11.6 H, Eos % (Auto) 3.9, Baso % (Auto) 0.4, Absolute Neuts (auto) 8.7 H, Absolute Lymphs (auto) 1.20, Nucleated RBC % 0 12/20/21 09:10: Sodium 138, Potassium 3.5, Chloride 112 H, Carbon Dioxide 20.0 L, Anion Gap 6, BUN 3 L, Creatinine 0.73, Estim Creat Clear Calc 39.63, Est GFR (MDRD) Af Amer 101, Est GFR (MDRD) Non-Af 83, BUN/Creatinine Ratio 4.1 L, Glucose 133 H, Calcium 7.8 L 12/21/21 06:35: Sodium 140, Potassium 3.8, Chloride 114 H, Carbon Dioxide 23.0, Anion Gap 3 L, BUN 2 L, Creatinine 0.65, Estim Creat Clear Calc 39.63, Est GFR (MDRD) Af Amer 115, Est GFR (MDRD) Non-Af 95, BUN/Creatinine Ratio 3.1 L, Glucose 128 H, Calcium 8.2 L 12/21/21 06:35: WBC 12.6 H, RBC 3.64 L, Hgb 10.2 L, Hct 32.5 L, MCV 89.3, MCH 28.0, MCHC 31.4 L D, RDW Std Deviation 53.4 H, RDW Coeff of [place]restes 16.2 H, Plt Count 342, MPV 10.7, Immature Gran % (Auto) 0.600, Neut % (Auto) 77.1 H, Lymph % (Auto) 9.3 L, [place] % (Auto) 10.5 H, Eos % (Auto) 2.2, Baso % (Auto) 0.3, Absolute Neuts (auto) 9.7 H, Absolute Lymphs (auto) 1.18, Nucleated RBC % 0 Micro: Microbiology 12/18/21 13:00 Stool C. difficile GDH Antigen & Toxins - Final Toxigenic C. difficile 12/18/21 13:00 Stool C. difficile DNA Amplification - Final 12/18/21 13:00 Stool Enteric Bacteriology - Final Physical Exam Const no apparent distress GI GI Narrative: Nondistended, soft, nontender to palpation x4 quadrants (including deep palpation of the left side of the abdomen) Assessment & Plan Assessment/Plan (1) C. difficile colitis: PLAN: Patient with resolution of her left lower quadrant abdominal pain. Continues to have frequent loose stools. Given the improvements in her symptoms and laboratories, I have advanced her to a soft, low residue diet. Continue p.o. Vanco. Remainder of medical care per hospitalist service. Charges/Coding Visit Charges Inpatient E&M: 58025 Subs Hosp L2
[2021-12-21] MEDS: Ondansetron 4 MG/2 ML Vial IV (09:11)
[2021-12-21 09:14] VITALS: BP 110/71; PULSE 80; RESP 16; TEMP 36.3; O2SAT 100
[2021-12-21 09:17] VITALS: PULSE 80
[2021-12-21] MEDS: Metoprolol Tartrate 25 MG Tablet 12.5 MG PO (09:17)
[2021-12-21] MEDS: APIXABAN 5 MG TABLET PO (09:17)
[2021-12-21] MEDS: Aspirin E.C. 81 MG Tablet PO (09:17)
[2021-12-21] MEDS: FLUoxetine 20 MG Capsule PO (09:18)
[2021-12-21] MEDS: Potassium Chloride Oral Tablet 20 MEQ PO (09:18)
[2021-12-21 09:38] LABS: Pathologist Review Reviewed
--- NOTE | 2021-12-21 12:58 | PCM.DC ---
Discharge Instructions Diet Discharge Diet: Low fat / Low cholesterol Activity Discharge Activity: Return to Normal Activity Dressing / Incision Call your doctor if you observe: Fever of 101 or Higher, Shortness of breath, Dizziness, Fainting spells, Swelling in the ankles, Chest pain and Increased palpitations (irregular heartbeat) Follow Up Care Test Results: Test results from this visit will be discussed in further detail at your follow-up appointment, if applicable. Discharge Plan Admission Admit Date/Time: 12/16/21 06:23 Attending Provider: Bg Samaniego Primary Care Provider: Eugene Alfonso Chi Consulting Providers: Mary Jo Diez Discharge Orders/Prescriptions Prescriptions: New vancomycin 250 mg Capsule 500 mg PO Q6 12 Days Qty: 96 RF: 0 Continued Refresh Tears 0.5 % drops 1 drp OPHTHALMIC 4-8XD PRN (Reason: Dry Eyes) RF: 0 metoprolol tartrate 25 mg tablet 12.5 mg PO BID Qty: 180 RF: 3 atorvastatin [Lipitor] 10 mg tablet 10 mg PO QHS Qty: 90 RF: 3 fluoxetine [Prozac] 20 mg capsule 20 mg PO DAILY RF: 0 aspirin [Adult Low Dose Aspirin] 81 mg tablet,delayed release (DR/EC) 81 mg PO QDAY Qty: 90 RF: 3 cholecalciferol (vitamin D3) 50 MCG capsule 50 mcg PO DAILY RF: 0 Eliquis 5 mg tablet 5 mg PO BID Qty: 60 RF: 7 Discontinued sulfamethoxazole-trimethoprim [Bactrim DS] 800-160 mg Tablet 1 tab PO UD RF: 0 Referrals / Follow Up: Eugene Alfonso Chi, MD [Primary Care Provider] - Within 1 Week Disposition Disposition (needs filled in before D/C Order can be placed): Home Health Service
--- NOTE | 2021-12-21 13:17 | DS.PCM_ITS ---
Providers Date of Admission: 12/16/21 Primary Care Physician: Dr. Eugene Alfonso MD Consultations 12/16/21 08:24 Consult: General Surgery Routine Consulting Provider: Mary Jo Diez Reason for Consult: Recurrent diverticulitis/colitis EMERGENT Consult: No MD Notified: Yes Date Notified: 12/16/21 Time Notified: 06:24 Method of Notification: called per ED Reason For Visit: COLITIS Diagnosis Discharge Diagnosis (1) C. difficile colitis: Status: Acute Code(s): A04.72 - Enterocolitis due to Clostridium difficile, not specified as recurrent Medications at Discharge Home Medications carboxymethylcellulose sodium 0.5 % eye drops 1 drp OPHTHALMIC 4-8XD PRN 08/31/18 cholecalciferol (vitamin D3) 50 mcg PO DAILY 11/25/20 atorvastatin 10 mg tablet 10 mg PO QHS #90 tab 03/10/21 metoprolol tartrate 25 mg tablet 12.5 mg PO BID #180 tab 03/10/21 apixaban 5 mg tablet 5 mg PO BID #60 tab 08/26/21 aspirin 81 mg tablet,delayed release 81 mg PO QDAY #90 tab 11/13/21 fluoxetine 20 mg capsule 20 mg PO DAILY 11/13/21 vancomycin 500 mg PO Q6 12 Days #96 cap 12/21/21 Hospital Course Operations None Procedures None Summary of Care Provided Minutes Spent on Discharge: 40 Hospital Course: Per HPI: The patient is a 71 y/o F w/ PMHx: PAF, Obesity, CAD s/p PCI following w/ Dr. Man, HTN, HLD, PAF, recently Tami's granulomatosis diagnosis following with [facility] with routine chemotherapy infusion, Breast CA s/p mastectomy, GERD, Hx frequent diverticulitis who presents to the [facility] ED on 12/16/21 with history of serial bouts of diverticulitis with most recent 09/2021 with similar feeling with onset the evening prior approximately 10 PM left upper and lower quadrant pain, more painful with bowel movement with loose nonbloody stool associated as well as nausea and dry heaving with no fevers or chills but given its not improving prompted ED evaluation. She rates her pain 10 out of 10, severe, worse with any palpation. Work-up in the ED included T 97.9, heart rate 77, BP 120/66, respiratory rate 18, 90% on room air, CBC with WC 13.1, hemoglobin 12.5, platelets 371 with left shift, BMP with potassium 3.1, glucose 134 otherwise not marked appearing, CT abdomen pelvis with focal inflammatory change of the mid to distal colon over segment 7.3 cm with wall thickening, stranding, edema and narrowing of the lumen with a focal small outpouching possibly an elongated diverticulum versus a small focal contained micro leak, diffuse edema of the colon compatible with colitis as well as mid wall thickening and edema of the cecum. In the ED patient administered potassium 40 mill equivalent p.o. x1, Zosyn, Zofran, morphine and normal saline. Hospital Course: 1. Abdominal pain secondary to C. difficile colitis with possible microperfor ation?71-year-old female who presented to the hospital with abdominal pain. CT scan at that time demonstrated focal inflammatory changes of the mid to distal colon. She is on chronic Bactrim secondary to Tami's granulomatosis prophylaxis for PCP pneumonia. When the C. difficile test came back positive her antibiotics were adjusted to oral vancomycin and she has had significant im provement. She denies any abdominal pain today and she is tolerating p.o. diet. She also states that her diarrhea has significantly improved since admission. We will continue with p.o. vancomycin for another 12 days to complete a 14-day course on discharge I do recommend she follow-up with her PCP in 3 to 5 days. I discussed with her and her the plan for possible discharge today and ex pressed understanding of the risk benefits of going home and would like to go home today. 2. Hypertension, hyperlipidemia, paroxysmal A. fib, Tami's granulomatosis, coronary artery disease, anxiety, depression are all chronic medical problems which complicate her care. Her home medications were continued where appropriate. Physical Exam Const alert, oriented x3 and no apparent distress General Appearance: cooperative HEENT normocephalic and moist oral mucous membranes Eyes PERRL, EOMs intact bilaterally and conjunctivae normal Neck supple and no JVD Resp normal respiratory effort, no retractions, no use of accessory muscles and clear to auscultation bilaterally Auscultation: Negative for crackles, rales, rhonchi or wheezes Cardio regular rate, regular rhythm, S1 normal heart sound, S2 normal heart sound and no murmurs GI soft to palpation, non-tender and non-distended; Negative for hepatosplenomegaly Extremity no clubbing, cyanosis or edema Skin no rashes or lesions noted Neuro no focal motor deficits and no sensory deficits noted Psych affect normal Appearance: appropriate Weight / BMI Weight Weight: 207 lb 10.807 oz Body Mass Index (BMI) 33.4 ABG / Lab / Microbiology Data Result Diagrams: 12/21/21 06:35 12/21/21 06:35 Laboratory: Laboratory Results - last 24 hr 12/18/21 06:00: Diff Path Review Reviewed 12/21/21 06:35: Sodium 140, Potassium 3.8, Chloride 114 H, Carbon Dioxide 23.0, Anion Gap 3 L, BUN 2 L, Creatinine 0.65, Estim Creat Clear Calc 39.63, Est GFR (MDRD) Af Amer 115, Est GFR (MDRD) Non-Af 95, BUN/Creatinine Ratio 3.1 L, Glucose 128 H, Calcium 8.2 L 12/21/21 06:35: WBC 12.6 H, RBC 3.64 L, Hgb 10.2 L, Hct 32.5 L, MCV 89.3, MCH 28.0, MCHC 31.4 L D, RDW Std Deviation 53.4 H, RDW Coeff of Orestes 16.2 H, Plt Count 342, MPV 10.7, Immature Gran % (Auto) 0.600, Neut % (Auto) 77.1 H, Lymph % (Auto) 9.3 L, [place] % (Auto) 10.5 H, Eos % (Auto) 2.2, Baso % (Auto) 0.3, Absolute Neuts (auto) 9.7 H, Absolute Lymphs (auto) 1.18, Nucleated RBC % 0 Microbiology: Microbiology 12/18/21 13:00 Stool C. difficile GDH Antigen & Toxins - Final Toxigenic C. difficile 12/18/21 13:00 Stool C. difficile DNA Amplification - Final 12/18/21 13:00 Stool Enteric Bacteriology - Final D/C Instructions Discharge Diet: Low fat / Low cholesterol Call your doctor if you observe: Fever of 101 or Higher, Shortness of breath, Dizziness, Fainting spells, Swelling in the ankles, Chest pain and Increased palpitations (irregular heartbeat) Meaningful Use Info Meaningful Use Diagnoses (Choose all that apply): None applicable Discharge Plan Admission Admit Date/Time: 12/16/21 06:23 Attending Provider: Bg Samaniego Primary Care Provider: Eugene Alfonso Chi Consulting Providers: Mary Jo Diez Discharge Orders/Prescriptions Prescriptions: New vancomycin 250 mg Capsule 500 mg PO Q6 12 Days Qty: 96 RF: 0 Continued Refresh Tears 0.5 % drops 1 drp OPHTHALMIC 4-8XD PRN (Reason: Dry Eyes) RF: 0 metoprolol tartrate 25 mg tablet 12.5 mg PO BID Qty: 180 RF: 3 atorvastatin [Lipitor] 10 mg tablet 10 mg PO QHS Qty: 90 RF: 3 fluoxetine [Prozac] 20 mg capsule 20 mg PO DAILY RF: 0 aspirin [Adult Low Dose Aspirin] 81 mg tablet,delayed release (DR/EC) 81 mg PO QDAY Qty: 90 RF: 3 cholecalciferol (vitamin D3) 50 MCG capsule 50 mcg PO DAILY RF: 0 Eliquis 5 mg tablet 5 mg PO BID Qty: 60 RF: 7 Discontinued sulfamethoxazole-trimethoprim [Bactrim DS] 800-160 mg Tablet 1 tab PO UD RF: 0 Referrals / Follow Up: Eugene Alfonso Chi, MD [Primary Care Provider] - 12/23/21 11:00 am Disposition Disposition (needs filled in before D/C Order can be placed): Home Health Service Charges/Coding Visit Charges Inpatient E&M: 01227 Disch Hosp
--- NOTE | 2021-12-21 13:26 | CASEMGMT ---
TC to [facility] for cost of vancomycin, cost is $1885.96. Asked pharmacist to use [facility] and the cost is $76.85. She states they have to order in the full rx amount. Pt will receive some today and then the rest will be ready tomorrow afternoon. Pt is aware of this. Pt is also aware that [facility] will be getting in touch with her to come out. Pt denies further needs.
== END 2021-12-21 14:05 | disposition home health service (06) | DRG 372 ==
LOC: ED 06:25 → MS3 06:43
PROVIDERS: Internal Medicine; Surgery; Admitting Provider Family Medicine; Emergency Provider Emergency Medicine; PCP Family Medicine Geriatric Medicine; Visit Provider Family Medicine
DX: A04.72 Enterocolitis due to Clostridium difficile, not specified as recurrent (principal); K57.20 Diverticulitis of large intestine with perforation and abscess without bleeding; M31.30 Wegener's granulomatosis without renal involvement; M30.0 Polyarteritis nodosa; I48.0 Paroxysmal atrial fibrillation; G62.9 Polyneuropathy, unspecified; E66.9 Obesity, unspecified; E78.2 Mixed hyperlipidemia; E87.6 Hypokalemia; K21.9 Gastro-esophageal reflux disease without esophagitis; I10 Essential (primary) hypertension; I25.10 Atherosclerotic heart disease of native coronary artery without angina pectoris; K80.20 Calculus of gallbladder without cholecystitis without obstruction; F41.8 Other specified anxiety disorders; I25.2 Old myocardial infarction; G47.33 Obstructive sleep apnea (adult) (pediatric); Z99.3 Dependence on wheelchair; Z79.82 Long term (current) use of aspirin; Z92.3 Personal history of irradiation; Z79.01 Long term (current) use of anticoagulants; Z85.3 Personal history of malignant neoplasm of breast; M85.80 Other specified disorders of bone density and structure, unspecified site; Z87.19 Personal history of other diseases of the digestive system; Z79.899 Other long term (current) drug therapy; Z68.34 Body mass index [BMI] 34.0-34.9, adult; Z95.5 Presence of coronary angioplasty implant and graft
CPT/HCPCS: 36415; 74177; 80048; 81001; 85025; 87493; 87506; 97110; 97162; 97166; 97535; 99251; 99284; J7030; J7050; Q9967; A4216; G0463; J2405

== ENCOUNTER 2022-01-13 15:09 | Outpatient (RCR) | payer MEDICARE, SELFPAY ==
[2020-12-05 14:34] VITALS: BMI 31.7
[2022-01-13 16:15] LABS: Anion Gap 6 (5-15); BUN 7 mg/dL (7-18); BUN/Creat Ratio 11.1 RATIO (10-20); Calcium,Total 8.9 mg/dL (8.5-10.1); Chloride 105 mmol/L (98-107); Creatinine, Serum 0.63 mg/dL (0.55-1.02); EST Glomerular Filtration Rate 99 mL/min (>60); Est Glom Filt Rate - Afr Amer 119 mL/min (>60); Glucose 94 mg/dL (74-106); Potassium 4.1 mmol/L (3.5-5.1); Sodium Level 139 mmol/L (136-145)
== END 2022-02-04 23:59 | disposition home or self-care (01) ==
LOC: HHLAB 15:09
PROVIDERS: PCP Family Medicine Geriatric Medicine; Visit Provider Family Medicine Geriatric Medicine
DX: A04.72 Enterocolitis due to Clostridium difficile, not specified as recurrent (principal); J84.9 Interstitial pulmonary disease, unspecified; K57.32 Diverticulitis of large intestine without perforation or abscess without bleeding
CPT/HCPCS: 80048

== ENCOUNTER 2022-01-14 09:02 | Outpatient (CLI) | payer MEDICARE, SELFPAY ==
[2020-12-05 14:34] VITALS: BMI 31.7
== END 2022-01-14 23:59 | disposition home or self-care (01) ==
PROVIDERS: PCP Family Medicine Geriatric Medicine; Visit Provider Family Medicine Geriatric Medicine
DX: R19.7 Diarrhea, unspecified (principal)
CPT/HCPCS: 82274; 83630; 87177; 87209; 87493; 87506

== ENCOUNTER 2022-01-19 10:50 | Emergency (ER) | payer MEDICARE, SELFPAY ==
[2020-12-05 14:34] VITALS: BMI 31.7
[2022-01-19 10:51] VITALS: BP 146/72; PULSE 80; RESP 18; TEMP 36.6; O2SAT 97; BMI 30.3
--- NOTE | 2022-01-19 11:09 | ED.RN ---
PT SPOUSE AGGRESSIVE TOWARDS STAFF. STANDING DIRECTLY BEHIND THIS NURSE WHILE ATTEMPTING TO CHART. PT SPOUSE STATES BEFORE YOU PEOPLE PUMP HER FULL OF ATB'S LIKE YOU DID LAST MONTH, WE NEED TO DISCUSS OTHER OPTIONS BECAUSE YOU GUYS GIVE HER C-DIFF FROM ALL THE ATB'S.
--- NOTE | 2022-01-19 11:16 | EDS_ITS ---
HPI HPI - GI History of Present Illness Chief Complaint: Abd Pain Informant: patient Abdominal Pain/Flank Pain Onset: Days (3) Context: Gradual Onset Timing: Continuous Quality: Stabbing Location: LLQ Worsened by: Movement Relieved by: Nothing Nausea/Vomiting/Emesis GI Symptom: Negative for Nausea and Vomiting Diarrhea/Melena/Hematochezia GI Symptom: Positive for Diarrhea; Negative for Melena and Hematochezia Stool Quality: Positive for Watery Associated Symptoms Associated Symptoms: Negative for Dysuria, Frequency and Hematuria Narrative Narrative: Patient presents with abdominal pain that has been getting worse over the past 3 days. Patient states she was admitted here recently for diverticulitis. Patient states that while she was on antibiotics she developed C. difficile. Patient states she still has the C. difficile and has been having several episodes of watery diarrhea per day. Patient states that over the past 3 days her left-sided abdominal pain has gotten worse. Patient describes it as stabbing. Patient states it is worse with movement. Patient denies any nausea or vomiting. Patient denies any urinary complaints. reports that they contacted her primary care physician's office. Patient states that she was scheduled to have a CT scan done as an outpatient and then go to her primary care physician's office. Patient states that since she would be unable to receive anything for pain prior to her CT scan, they decided to come to the emergency department instead. [facility] Medical History Anxiety Arthritis Atherosclerotic heart disease of [place] coronary artery without angina pectoris Atrial fibrillation Breast cancer Chronic rhinitis Colitis Depression Diverticulitis Essential (primary) hypertension GERD (gastroesophageal reflux disease) History of breast cancer History of ST elevation myocardial infarction (STEMI) (11/25/20) Impaired fasting blood sugar Mixed hyperlipidemia Myocardial infarct Neuropathy On home oxygen therapy Osteopenia Paroxysmal atrial fibrillation Tear film insufficiency Vitamin deficiency Tami's granulomatosis Home Medications carboxymethylcellulose sodium 0.5 % eye drops 1 drp OPHTHALMIC 4-8XD PRN 08/31/18 [History Last Taken 01/18/22] cholecalciferol (vitamin D3) 50 mcg PO DAILY 11/25/20 [History Last Taken 01/19/22] atorvastatin 10 mg tablet 10 mg PO QHS #90 tab 03/10/21 [Rx Last Taken 01/19/22] metoprolol tartrate 25 mg tablet 12.5 mg PO BID #180 tab 03/10/21 [Rx Last Taken 01/19/22] apixaban 5 mg tablet 5 mg PO BID #60 tab 08/26/21 [Rx Last Taken 01/19/22] aspirin [Adult Low Dose Aspirin] 81 mg PO DAILY 01/19/22 [History Last Taken 01/19/22] fluoxetine 40 mg PO DAILY 01/19/22 [History Last Taken 01/19/22] hydrocodone-acetaminophen 1 tab PO Q6H PRN PRN 3 Days #10 tablet 01/19/22 [Rx Last Taken Unknown] potassium chloride 20 meq PO BID 01/19/22 [History Last Taken 01/19/22] vancomycin 125 mg PO 4X/DAY 01/19/22 [History Last Taken 01/19/22] Allergy/AdvReac Type Severity Reaction Status Date / Time No Known Allergies Allergy Verified 01/19/22 10:54 Family History Father Heart disease Colon cancer Mother Breast cancer CVA (cerebral vascular accident) Grandmother CVA (cerebral vascular accident) Brother Diabetes Surgical History H/O mastectomy History of adjustable gastric banding History of appendectomy History of cataract surgery History of coronary artery stent placement (11/25/20) History of left heart catheterization (~05/15/08) History of tonsillectomy Social History household members: spouse Smoking Status: Never smoker alcohol intake: never caffeine: No what type of physical activity do you participate in: swimming and aerobics frequency: 3-4 times per week ROS ROS ED Constitutional Constitutional ED: Denies chills or fever(s) Eyes Eyes: Denies blurry vision or change in vision ENT ENT ED: Denies rhinorrhea or sore throat Cardiovascular Cardiovascular: Denies chest pain or palpitations Respiratory/Chest Respiratory/Chest: Reports dyspnea; Denies cough Gastrointestinal Gastrointestinal: Reports abdominal pain and diarrhea; Denies nausea or vomiting Genitourinary Genitourinary ED: Denies dysuria or hematuria Musculoskeletal Musculoskeletal: Reports back pain; Denies neck pain Integumentary Denies abscess or rash Neurologic Neurologic: Denies headache(s) or weakness Allergic/Immunologic Allergic/Immunologic ED: Denies mouth swelling or urticaria EXAM Physical Exam Const Vital Signs: 01/19/22 10:51 01/19/22 12:47 01/19/22 15:12 Temperature 98 F Temperature Source Temporal Pulse Rate 80 68 69 Respiratory Rate 18 16 14 Blood Pressure 146/72 H 129/78 H 122/53 H Blood Pressure Mean 96 95 76 Pulse Ox 97 95 95 Oxygen Delivery Method Room Air Room Air Room Air Positive well nourished and well developed General Appearance ED: well developed HEENT Reports moist mucous membranes Neck supple and no JVD Resp normal respiratory effort and clear to auscultation bilaterally Cardio regular rate, regular rhythm and no murmurs GI normal to inspection, nondistended, normoactive bowel sounds and non-distended Palpation: soft and tender LLQ and LUQ; Negative for rebound tenderness present Extremity normal to inspection General Extremety ED: Negative for edema or tenderness General Extremity: Negative for edema Neuro oriented x3, CN's II-XII intact bilaterally and no sensory deficits noted Sensorium / Orientation: alert Motor Exam: strength 5/5 throughout Psych mental status grossly normal Skin no rashes or lesions noted MDM MDM MDM Narrative Medical decision making narrative: Patient was given IV fluids, morphine, and Zofran. CBC was within normal limits. Comprehensive metabolic profile was essentially within normal limits. Potassium was slightly low at 3.2. Urinalysis was within normal limits. CT scan of the abdomen pelvis was obtained. There is diverticulitis of the distal descending colon which is less conspicuous than on the prior CT scan. There is no abscess or perforation. Case was discussed with Dr. Diez. She believes that diverticulitis is most likely colitis from the C. difficile. She does not recommend any antibiotic treatment at this time. Case was discussed with the hospitalist. He believes that the patient can be managed as an outpatient. He discussed the case with Dr. Ware from infectious disease. They recommended completing the course of oral vancomycin. Patient was given a prescription for [place]. Patient was instructed to follow-up with his primary care physician in 3 to 5 days. Patient and family understood and were agreeable with the plan. All questions were answered. Lab Data Attestation: I reviewed the patient's lab results. Labs: Laboratory Results - last 24 hr 01/19/22 01/19/22 01/19/22 11:34 11:34 12:40 WBC 10.0 RBC 4.19 L Hgb 11.5 L Hct 35.8 L MCV 85.4 MCH 27.4 MCHC 32.1 RDW Std Deviation 52.8 H RDW Coeff of Orestes 17.1 H Plt Count 401 MPV 11.2 Immature Gran % (Auto) 0.400 Neut % (Auto) 63.1 Lymph % (Auto) 17.1 L [place] % (Auto) 14.3 H Eos % (Auto) 4.5 Baso % (Auto) 0.6 Absolute Neuts (auto) 6.3 Absolute Lymphs (auto) 1.70 Nucleated RBC % 0 Sodium 140 Potassium 3.2 L Chloride 105 Carbon Dioxide 29.0 Anion Gap 6 BUN 7 Creatinine 0.80 Estim Creat Clear Calc 49.53 Est GFR (MDRD) Af Amer 90 Est GFR (MDRD) Non-Af 75 BUN/Creatinine Ratio 8.8 L Glucose 120 H Calcium 9.5 Total Bilirubin 0.40 AST 20 ALT 18 Alkaline Phosphatase 100 Total Protein 6.2 L Albumin 2.6 L Globulin 3.6 Albumin/Globulin Ratio 0.7 L Lipase 143 Urine Color YELLOW Urine Clarity Clear Urine pH 5.0 Ur Specific [place] 1.010 Urine Protein Negative Urine Glucose (UA) Normal Urine Ketones Negative Urine Occult Blood Negative Urine Nitrite Negative Urine Bilirubin Negative Urine Urobilinogen Normal Ur Leukocyte Esterase 25 H Urine RBC 0 SEEN Urine WBC 0-5 SEEN Ur Squamous Epith Cells 0-5 SEEN Urine Bacteria 0 SEEN Urine Mucus 0 SEEN Radiography Diagnostic Testing: Clinical Impression(s) from Imaging Studies Abdomen/Pelvis CT 01/19/22 11:20 IMPRESSION: Distal descending colon diverticulitis, less conspicuous since prior CT. No abscess or pneumoperitoneum. Electronically Signed: Mihir Cullen MD ([place]) at 13:54 EDT Reading Location ID and State: [facility] / [place] , Service support , Discharge Plan Triage Chief Complaint: Abd Pain ED Provider: Chay Valencia Dx/Rx/DC Orders Clinical Impression: C. difficile colitis Instructions: Clostridium Difficile Infection Prescriptions: New hydrocodone-acetaminophen [hydrocodone-acetaminophen] 1 TABLET tablet 1 tab PO Q6H PRN PRN (Reason: Pain) 3 Days Qty: 10 RF: 0 No Action Refresh Tears 0.5 % drops 1 drp OPHTHALMIC 4-8XD PRN (Reason: Dry Eyes) RF: 0 metoprolol tartrate 25 mg tablet 12.5 mg PO BID Qty: 180 RF: 3 atorvastatin [Lipitor] 10 mg tablet 10 mg PO QHS Qty: 90 RF: 3 cholecalciferol (vitamin D3) 50 MCG capsule 50 mcg PO DAILY RF: 0 fluoxetine 40 mg capsule 40 mg PO DAILY RF: 0 potassium chloride 10 mEq capsule, extended release 20 meq PO BID RF: 0 vancomycin 125 mg capsule 125 mg PO 4X/DAY RF: 0 aspirin [Adult Low Dose Aspirin] 81 mg tablet,delayed release (DR/EC) 81 mg PO DAILY RF: 0 Eliquis 5 mg tablet 5 mg PO BID Qty: 60 RF: 7 Primary Care Provider: Eugene Alfonso Chi Referrals: Eugene Alofnso Chi, MD [Primary Care Provider] - 3-5 Days Activity Restrictions/Additional Instructions: Continue your vancomycin as prescribed at 125 mg 4 times a day. Disposition Disposition: Home, Self Care
--- NOTE | 2022-01-19 11:20 | CT_ITS ---
STUDY: CT ABDOMEN AND PELVIS WITH CONTRAST REASON FOR EXAM: Female, 71 years old. Abdominal pain RADIATION DOSAGE (If Supplied By Facility): CTDIvol = ( 15.25 ) mGy, DLP = ( 1071.69 ) mGycm TECHNIQUE: Transaxial images were obtained from the dome of the diaphragm to the symphysis pubis with oral contrast. IV 100mL Isovue-300 was administered. Sagittal and coronal images were reconstructed. Individualized dose optimization techniques were used for this CT. COMPARISON: 12/18/2021 FINDINGS: Bilateral breast implants partially visualized. Mild atelectasis or fibrotic scarring of the lung bases. The visualized portions of the heart are within normal limits. Normal liver. There are multiple gallstones. Normal spleen. Normal pancreas. Normal bilateral adrenal glands. Normal right kidney. Normal left kidney. Bariatric device noted. Normal small intestine. There is diverticulosis, with thickening of the descending colon wall, and pericolonic inflammation changes consistent with acute diverticulitis, although less conspicuous as compared to prior study. There is non-visualization of the appendix. There is diffuse atherosclerotic calcification of the abdominal aorta, without a demonstrated aneurysm. Normal inferior vena cava. Normal retroperitoneum. Normal urinary bladder. Normal abdominal wall. There are diffuse degenerative changes of the visualized lumbar spine. CT/Abdomen/Pelvis WITH Contrast IMPRESSION: Distal descending colon diverticulitis, less conspicuous since prior CT. No abscess or pneumoperitoneum. Electronically Signed: Mihir Cullen MD ([place]) at 13:54 EDT ,
[2022-01-19] MEDS: 0.9% Normal Saline 1,000 ML 125 ML IV (11:31)
[2022-01-19] MEDS: Ondansetron 4 MG/2 ML Vial IV (11:31)
[2022-01-19] MEDS: Morphine 4 MG/ML Syringe IV (11:31)
[2022-01-19 11:46] LABS: Absolute Neutrophil Count 6.3 X10^3/uL (2.0-7.7); Basophil# 0.06 X10^3/uL; Basophil% 0.6 % (0-1); Eosinophil# 0.45 X10^3/uL; Eosinophils% 4.5 % (0-5); Hematocrit 35.8 % (37-47); Hemoglobin 11.5 g/dL (12.0-15.0); Lymphocyte % 17.1 % (19-41); Mean Corp Hgb Conc 32.1 g/dL (32-36); Mean Corpuscular Hgb 27.4 pg (27.0-32.0); Mean Corpuscular Volume 85.4 fL (81-99); Mean Platelet Vol. 11.2 fl (6.2-12.0); Monocyte# 1.43 X10^3/uL; Monocyte% 14.3 % (0-10); NRBC Flagged by Analyzer 0 % (0-5); Neutrophil # 6.29 X10^3/uL (2.7-7.7); Neutrophil % 63.1 % (47-70); Platelet Count 401 K/mm3 (150-450); RBC Distribution Width CV 17.1 % (11.6-14.6); RBC Distribution Width SD 52.8 fl (35.1-43.9); Red Blood Count 4.19 M/mm3 (4.2-5.4)
[2022-01-19 11:58] LABS: ALB/GLOB Ratio 0.7 RATIO (0.9-2.4); AST(SGOT) 20 U/L (15-37); Alanine Aminotransfer ALT/SGPT 18 U/L (13-56); Albumin, Serum 2.6 g/dL (3.2-5.0); Alkaline Phosphatase 100 U/L (45-117); Anion Gap 6 (5-15); BUN 7 mg/dL (7-18); BUN/Creat Ratio 8.8 RATIO (10-20); Calcium,Total 9.5 mg/dL (8.5-10.1); Chloride 105 mmol/L (98-107); EST Glomerular Filtration Rate 75 mL/min (>60); Est Glom Filt Rate - Afr Amer 90 mL/min (>60); Estimated Creatinine Clearance 49.53 ml/min; Globulin 3.6 g/dL (2.2-4.2); Glucose 120 mg/dL (74-106); Lipase 143 U/L (73-393); Potassium 3.2 mmol/L (3.5-5.1); Protein, Total 6.2 g/dL (6.4-8.2); Sodium Level 140 mmol/L (136-145)
[2022-01-19 12:47] VITALS: BP 129/78; PULSE 68; RESP 16; O2SAT 95
[2022-01-19 12:51] LABS: Bacteria 0 SEEN /hpf (None Seen); Mucous, Urine 0 SEEN /hpf (<or=2+); Red Blood Cells-Urine 0 SEEN /hpf (0-5)
[2022-01-19 12:54] LABS: Glucose, Dipstick Normal (Normal); Ketone-Dipstick Negative (Negative); Leukocyte Esterase-Dipstick 25 /ul (Negative); Nitrite-Dipstick Negative (Negative); Occult Blood-Urine Negative /ul (Negative); Protein-Dipstick Negative (Negative); Urine Bilirubin Dipstick Negative (Negative); Urine Urobilinogen Normal (Normal)
[2022-01-19 12:57] LABS: Color, Urine YELLOW (Yellow); Urine Clarity Clear (Clear)
[2022-01-19 13:02] LABS: Squamous Epithelial Cells - UA 0-5 SEEN /hpf (5-10); White Blood Cells 0-5 SEEN /hpf (0-5)
--- NOTE | 2022-01-19 15:06 | NURSING ---
DR JIMÉNEZ FOR DR MCELROY
[2022-01-19 15:12] VITALS: BP 122/53; PULSE 69; RESP 14; O2SAT 95
== END 2022-01-19 16:09 | disposition home or self-care (01) ==
PROVIDERS: Emergency Provider Emergency Medicine; PCP Family Medicine Geriatric Medicine; Visit Provider Emergency Medicine
DX: A04.72 Enterocolitis due to Clostridium difficile, not specified as recurrent (principal); I48.0 Paroxysmal atrial fibrillation; K57.32 Diverticulitis of large intestine without perforation or abscess without bleeding; I25.10 Atherosclerotic heart disease of native coronary artery without angina pectoris; I10 Essential (primary) hypertension; E78.2 Mixed hyperlipidemia; Z85.3 Personal history of malignant neoplasm of breast; Z87.19 Personal history of other diseases of the digestive system; F32.A Depression, unspecified; F41.9 Anxiety disorder, unspecified; M19.90 Unspecified osteoarthritis, unspecified site; K21.9 Gastro-esophageal reflux disease without esophagitis; I25.2 Old myocardial infarction; G62.9 Polyneuropathy, unspecified; M85.80 Other specified disorders of bone density and structure, unspecified site; Z79.82 Long term (current) use of aspirin; Z79.899 Other long term (current) drug therapy; Z95.5 Presence of coronary angioplasty implant and graft
CPT/HCPCS: 74177; 80053; 81001; 83690; 85025; 96361; 96374; 96375; 99283; J7030; Q9967; A4216; J2405

== ENCOUNTER → 2022-03-01 | Outpatient (CLI) | payer MEDICARE, SELFPAY ==
[2020-12-05 14:34] VITALS: BMI 31.7
--- NOTE | 2022-03-01 10:33 | BI_ITS ---
MAMMOGRAPHY - BILATERAL SCREENING 3-D TOMOSYNTHESIS REASON FOR EXAM: Female, 71 years old. SCREENING PERTINENT HISTORY: No significant family history. TECHNIQUE: 2-D mammograms and 3-D Tomosynthesis of the breast (s) were performed. CAD was performed. COMPARISON: 02/26/2021 FINDINGS: The breast composition is composed of scattered fibroglandular density. Scattered benign calcifications are seen. No dense spiculated masses or suspicious microcalcifications are identified. No architectural distortion is identified. There is no skin thickening or retraction. There has been no significant change since the prior study. Lumpectomy changes of the right breast are unchanged BI/SCRN MAMM (CAD)W/MARGAUX BILAT IMPRESSION: No mammographic signs of malignancy. Routine yearly mammograms recommended. ASSESSMENT CATEGORY: BIRADS Category 2: Benign. A letter regarding these results will be sent to the patient by the facility within 30 days. FOLLOW UP RECOMMENDATION: Yearly follow up mammogram recommended. (A) Approximately 10% of breast cancers are not detected by mammography. A normal mammogram should not delay biopsy of a clinically suspicious abnormality. Electronically Signed: Que Boo MD at 12:13 EDT ,
== END | disposition home or self-care (01) ==
LOC: OPBI 10:31
PROVIDERS: PCP Family Medicine Geriatric Medicine; Visit Provider Family Medicine Geriatric Medicine
DX: Z12.31 Encounter for screening mammogram for malignant neoplasm of breast (principal)
CPT/HCPCS: 77063; 77067

== ENCOUNTER → 2022-03-18 | Outpatient (CLI) | payer MEDICARE, SELFPAY ==
[2020-12-05 14:34] VITALS: BMI 31.7
--- NOTE | 2022-03-18 14:50 | RAD_ITS ---
STUDY: X-RAY CHEST REASON FOR EXAM: Female, 71 years old. shortness of breath, Hx Tami''s disease per patient, also Hx breast CA with radiation treatment and right mastectomy TECHNIQUE: PA and lateral views of the chest. COMPARISON: 05/07/2021 FINDINGS: Surgical clips of the right axilla. There are interstitial fibrotic changes of the lungs. No airspace consolidation. There is no demonstrated pleural abnormality. Normal size heart. Normal mediastinum and dana. Normal visualized pulmonary arteries. There is atherosclerotic calcification of the aortic arch with tortuosity. There is demineralization of the osseous structures. Normal visualized ribs, clavicles, and shoulders. Bariatric device of the upper abdomen. RAD/Chest PA and Lateral IMPRESSION: Stable, nonacute x-ray examination of the chest. Electronically Signed: Mihir Cullen MD ([place]) at 22:28 EDT ,
== END | disposition home or self-care (01) ==
PROVIDERS: PCP Family Medicine Geriatric Medicine; Visit Provider Internal Medicine Pulmonary Disease
DX: R06.00 Dyspnea, unspecified (principal); J84.112 Idiopathic pulmonary fibrosis
CPT/HCPCS: 71046

== ENCOUNTER → 2022-04-07 | Outpatient (CLI) | payer MEDICARE, SELFPAY ==
[2020-12-05 14:34] VITALS: BMI 31.7
[2022-04-07 16:32] LABS: Absolute Neutrophil Count 4.2 X10^3/uL (2.0-7.7); Basophil# 0.05 X10^3/uL; Basophil% 0.7 % (0-1); Eosinophils% 4.1 % (0-5); Hematocrit 38.1 % (37-47); Hemoglobin 11.8 g/dL (12.0-15.0); Lymphocyte % 25.8 % (19-41); Mean Corpuscular Hgb 27.7 pg (27.0-32.0); Mean Corpuscular Volume 89.4 fL (81-99); Mean Platelet Vol. 11.3 fl (6.2-12.0); Monocyte# 0.86 X10^3/uL; Monocyte% 11.7 % (0-10); NRBC Flagged by Analyzer 0 % (0-5); Neutrophil # 4.22 X10^3/uL (2.7-7.7); Neutrophil % 57.2 % (47-70); Platelet Count 411 K/mm3 (150-450); RBC Distribution Width CV 15.8 % (11.6-14.6); RBC Distribution Width SD 51.6 fl (35.1-43.9); Red Blood Count 4.26 M/mm3 (4.2-5.4); White Blood Count 7.4 K/mm3 (4.4-11.0)
[2022-04-07 17:05] LABS: Vitamin D,25 Hydroxy 65.8 ng/mL
[2022-04-07 17:08] LABS: ALB/GLOB Ratio 0.8 RATIO (0.9-2.4); AST(SGOT) 20 U/L (15-37); Alanine Aminotransfer ALT/SGPT 20 U/L (13-56); Albumin, Serum 3.1 g/dL (3.2-5.0); Alkaline Phosphatase 110 U/L (45-117); Anion Gap 7 (5-15); BUN 12 mg/dL (7-18); BUN/Creat Ratio 13.8 RATIO (10-20); Calcium,Total 9.6 mg/dL (8.5-10.1); Chloride 104 mmol/L (98-107); Creatinine, Serum 0.87 mg/dL (0.55-1.02); EST Glomerular Filtration Rate 68 mL/min (>60); Est Glom Filt Rate - Afr Amer 82 mL/min (>60); Globulin 3.7 g/dL (2.2-4.2); Glucose 124 mg/dL (74-106); Potassium 4.1 mmol/L (3.5-5.1); Protein, Total 6.8 g/dL (6.4-8.2); Sodium Level 138 mmol/L (136-145); Thyroid Stim Hormone (TSH) 1.87 uIU/mL (0.358-3.74)
== END | disposition home or self-care (01) ==
LOC: POLAB3 15:42
PROVIDERS: PCP Family Medicine Geriatric Medicine; Visit Provider Family Medicine Geriatric Medicine
DX: R53.83 Other fatigue (principal); N39.0 Urinary tract infection, site not specified; E55.9 Vitamin D deficiency, unspecified
CPT/HCPCS: 36415; 80053; 82306; 84443; 85025; 87077; 87086; 87088; 87186

== ENCOUNTER → 2022-04-13 | Outpatient (CLI) | payer MEDICARE, SELFPAY ==
[2020-12-05 14:34] VITALS: BMI 31.7
== END | disposition home or self-care (01) ==
PROVIDERS: PCP Family Medicine Geriatric Medicine; Referring Provider Internal Medicine Cardiovascular Disease; Visit Provider Internal Medicine Cardiovascular Disease
DX: I48.0 Paroxysmal atrial fibrillation (principal)
CPT/HCPCS: 93225; 93226

== ENCOUNTER 2022-04-27 22:09 | Emergency (ER) | payer MEDICARE, SELFPAY ==
[2020-12-05 14:34] VITALS: BMI 31.7
[2022-04-27 22:11] VITALS: BP 145/95; PULSE 91; RESP 18; TEMP 36; O2SAT 94; BMI 29.2
--- NOTE | 2022-04-27 22:13 | EKG12_ITS ---
Test Reason : CP Blood Pressure : / mmHG Vent. Rate : 082 BPM Atrial Rate : 082 BPM P-R Int : 196 ms QRS Dur : 082 ms QT Int : 412 ms P-R-T Axes : 040 058 -11 degrees QTc Int : 481 ms Sinus rhythm with Premature atrial complexes Nonspecific ST and T wave abnormality Abnormal ECG Confirmed by RANI JACINTO, MIGUEL ([id number]), slot editor MARIA R MARQUEZ ([id number]) on 04/29/2022 10:23:58 AM Referred By: ROSA Confirmed By:MIGUEL SARAVIA MD
--- NOTE | 2022-04-27 22:35 | EDS_ITS ---
HPI History of Present Illness Chief Complaint: Chest Pain Informant: patient Onset/Context/Timing Onset: Today Timing: Continuous Quality: Positive for Aching Location: Left Chest Current Severity: Mild Maximum Severity: Mild Worsened By: Movement of Torso; Not Worsened By Eating, Palpation, Breathing or Coughing Relieved By: Nothing Associated Symptoms: Negative for Nausea, Vomiting, Diaphoresis, Dyspnea, Cough, Lightheadedness, Acid Reflux or Palpitations Narrative Narrative: 71-year-old female history of prior CAD TX with 1 stent occurred November 2020. Also history of breast cancer which she underwent radiation and has compromise of her lungs from that and chronic shortness of breath. Prior history also of A. fib with prior cardiac ablation. She also has a history of Tami's. States that today she had left chest pain when she woke up in the morning its been there all day. It is primarily left chest shoulder and neck. No associated nausea or diaphoresis. Worse with movement. No recent exertional symptoms. She is chronically short of breath from her compromised lung function from the prior radiation. She said her shortness of breath is no worse. She is never had a DVT or PE travel, surgery or immobilization. No hemoptysis. No leg pain or swelling. Prior Similar Symptoms: Yes Recent Illness/Hospitalization: No CVD Risk Factors: Negative for Diabetes PE Risk Factors: Negative for Recent Travel/Surgery, Recent Immobilization, Prior DVT or PE, Cancer or OCP + Smoking + >/=35 TAD Risk Factors: Negative for Marfan's Syndrome [facility] Medical History Anxiety Arthritis Atherosclerotic heart disease of false pass coronary artery without angina pectoris Atrial fibrillation Breast cancer C. difficile colitis Chronic rhinitis Colitis Depression Diverticulitis Essential (primary) hypertension GERD (gastroesophageal reflux disease) History of breast cancer History of ST elevation myocardial infarction (STEMI) (11/25/20) Impaired fasting blood sugar Mixed hyperlipidemia Myocardial infarct Neuropathy On home oxygen therapy Osteopenia Paroxysmal atrial fibrillation Tear film insufficiency Vitamin deficiency Tami's granulomatosis Home Medications carboxymethylcellulose sodium 0.5 % eye drops (Refresh Tears) 1 drp ophthalmic (eye) 4-8XD PRN Dry Eyes 08/31/18 [History Last Taken 01/18/22] cholecalciferol (vitamin D3) 50 mcg (2,000 unit) capsule 50 mcg PO DAILY vitamin 11/25/20 [History Last Taken 01/19/22] atorvastatin 10 mg tablet (Lipitor) 10 mg PO QHS cholesterol #90 tabs 03/10/21 [Rx Last Taken 01/19/22] apixaban 5 mg tablet (Eliquis) 5 mg PO BID #60 tabs 08/26/21 [Rx Last Taken 01/19/22] aspirin 81 mg tablet,delayed release (Adult Low Dose Aspirin) 81 mg PO DAILY 01/19/22 [History Last Taken 01/19/22] fluoxetine 40 mg capsule 40 mg PO DAILY DEPRESSION 01/19/22 [History Last Taken 01/19/22] hydrocodone-acetaminophen 5-325mg 5mg-325mg 1 tab PO Q6H PRN PRN Pain 3 days #10 TABLETS 01/19/22 [Rx Last Taken Unknown] potassium chloride 10 mEq capsule,extended release 20 meq PO BID SUPPLEMENT 01/19/22 [History Last Taken 01/19/22] vancomycin 125 mg capsule 125 mg PO 4X/DAY CDIFF 01/19/22 [History Last Taken 01/19/22] metoprolol tartrate 25 mg tablet 12.5 mg PO BID #90 tabs 03/15/22 [Rx Last Taken Unknown] Allergy/AdvReac Type Severity Reaction Status Date / Time No Known Allergies Allergy Verified 04/27/22 22:10 Family History Father Heart disease Colon cancer Mother Breast cancer CVA (cerebral vascular accident) Grandmother CVA (cerebral vascular accident) Brother Diabetes Surgical History H/O mastectomy History of adjustable gastric banding History of appendectomy History of cataract surgery History of coronary artery stent placement (11/25/20) History of left heart catheterization (05/15/08) History of radiofrequency ablation procedure for cardiac arrhythmia (05/15/19) History of tonsillectomy Social History household members: spouse Smoking Status: Never smoker alcohol intake: never caffeine: No what type of physical activity do you participate in: swimming and aerobics frequency: 3-4 times per week ROS ROS ED ROS Narrative Chest pain. Chronic dyspnea no change. Review of Systems ROS Unobtainable: Denies due to encephalopathy Constitutional Constitutional ED: Denies chills or fever(s) Eyes Eyes: Denies none ENT ENT ED: Denies ear pain Cardiovascular Cardiovascular: Reports as per HPI and chest pain Respiratory/Chest Respiratory/Chest: Reports dyspnea; Denies cough Gastrointestinal Gastrointestinal: Denies abdominal pain, nausea or vomiting Genitourinary Genitourinary ED: Denies dysuria Musculoskeletal Musculoskeletal: Denies arthralgias Integumentary Denies abscess Neurologic Neurologic: Denies headache(s) Psychiatric Psychiatric: Denies anxiety Endocrine Endocrinology: Denies cold intolerance Hematologic/Lymphatic Hematologic/Lymphatic: Denies easy bleeding Allergic/Immunologic Allergic/Immunologic ED: Denies mouth swelling EXAM Physical Exam Narrative Exam Narrative: 71 old female no acute distress. Vital signs stable afebrile. Pulse ox 94% on room air. Sitting upright in bed. at bedside. H EENT exam unremarkable. Lungs are clear. Heart regular rhythm no murmur. Chest wall is Not a lot of significant chest wall tenderness. She does have pain when she tries to sit up on her own. Her chest wall. There is no ecchymosis or bruising. There is no redness or warmth. There is no crepitus or subcu air. Abdomen soft nontender. Moving all 4 extremities. Calves are nontender without edema or cords. Equal symmetrical radial pulses. Neurologically she is awake and alert. Const Vital Signs: 04/27/22 22:11 04/27/22 22:36 Temperature 96.8 F L Temperature Source Temporal Pulse Rate 91 Respiratory Rate 18 Blood Pressure 145/95 H Blood Pressure Mean 111 Pulse Ox 94 Oxygen Delivery Method Room Air Room Air Positive well nourished; Negative for cachectic, contractures or unkempt General Appearance ED: Negative for unkempt, cachectic, contractures or pallor Nutritional Appearance: Negative for cachectic HEENT Reports moist mucous membranes normocephalic and atraumatic; Negative for trauma or tenderness Eyes PERRL and EOMs intact bilaterally General Eye ED: Negative for pale conjunctiva or scleral icterus Neck no lymphadenopathy, supple and no JVD General: Negative for tenderness Chest Wall inspection of chest normal and palpation of chest normal Chest: Negative for tenderness Resp normal respiratory effort and clear to auscultation bilaterally Effort and Inspection: respiratory distress Auscultation: Negative for rales, rhonchi or wheezes Cardio regular rate, regular rhythm, S1 normal heart sound, S2 normal heart sound and no murmurs GI normal to inspection, nondistended, normoactive bowel sounds, soft to palpation, non-tender and non-distended Palpation: Negative for splenomegaly or mass Back/Spine no CVA tenderness and no thoracic nor lumbar tenderness General Back: Negative for CVA tenderness Cervical Spine: Negative for cervical spine tenderness Extremity normal to inspection General Extremety ED: Negative for edema or pulses abnormal General Extremity: Negative for edema or pulses abnormal Neuro oriented x3 Sensorium / Orientation: awake, alert, oriented to person, oriented to place and oriented to time; Negative for confused, lethargic or stuporous Motor Exam: strength 5/5 throughout Psych mental status grossly normal Appearance: Negative for unkempt Mood & Affect: Negative for depressed, anxious or tearful Skin no rashes or lesions noted and no wounds General Skin Exam: Negative for jaundice or pallor Rashes: No rashes noted Trauma: Negative for abrasion MDM MDM MDM Narrative Medical decision making narrative: 71-year-old no acute distress. Chest pain not; reproducible but when she sits upright it seems to be somewhat associated with movement. She undergo cardiac work-up the pains been there 15 hours or so. She did not want any for pain. Repeat exam patient is doing well at 11:10 PM. We went over her test results. I explained to her that with her pain being 15+ hours now and her troponin being normal we can run a second 1 2 hours from the first but my suspicion was it be negative. She did not want a wait to have a second troponin done. She has an infusion tomorrow for her Tami's. She requested that we lift the IV in her left arm in place that she would have to have another 1 placed tomorrow. I am comfortable with that and discussed that with our nursing staff. Lab Data Attestation: I reviewed the patient's lab results. Lab results narrative: CBC shows a white count of 10. H&H 12 and 38. Electrolytes are unremarkable gap of 5 normal BUN and creatinine. Troponin is 3. Labs: Laboratory Results - last 24 hr 04/27/22 04/27/22 22:30 22:30 WBC 10.8 RBC 4.33 Hgb 12.0 Hct 38.4 MCV 88.7 MCH 27.7 MCHC 31.3 L RDW Std Deviation 48.2 H RDW Coeff of Orestes 14.9 H Plt Count 355 MPV 10.5 Immature Gran % (Auto) 0.600 Neut % (Auto) 56.1 Lymph % (Auto) 25.8 Canyon % (Auto) 13.1 H Eos % (Auto) 3.8 Baso % (Auto) 0.6 Absolute Neuts (auto) 6.0 Absolute Lymphs (auto) 2.78 Nucleated RBC % 0 Sodium 139 Potassium 4.2 Chloride 105 Carbon Dioxide 29.0 Anion Gap 5 BUN 15 Creatinine 0.92 Estim Creat Clear Calc 43.07 Est GFR (MDRD) Af Amer 77 Est GFR (MDRD) Non-Af 64 BUN/Creatinine Ratio 16.4 Glucose 115 H Calcium 9.5 Troponin I High Sens 3 Radiography Chest X-Ray - ED: 1 View, Read by Radiologist, Heart, Lungs, Mediastinum, Bony Structures, No Acute Disease and Chronic Changes Diagnostic Testing: Clinical Impression(s) from Imaging Studies Chest X-Ray 04/27/22 22:40 IMPRESSION: Degenerative changes, as described above. No demonstrated acute cardiopulmonary process. No major interval change. Electronically Signed: Jg June DO at 22:58 EDT Reading Location ID and State: [address] [place] [address] Tel [phone], Service support , Chest x-ray, portable, single view shows normal cardiac silhouette. Mediastinum. Chronic changes no acute process. Interpreted both by myself and the radiologist. Rhythm Strip Rhythm Strip: Sinus Rhythm Rate: 82 Ectopy: None and PAC(s) EKG Initial EKG: Attestation: I personally reviewed and interpreted this EKG as follows: Interpretation: Sinus Rhythm and No Acute Injury Pattern Comments: Normal sinus rhythm rate 82. PACs. No acute signs of TX or ischemia. Nonspecific ST-T wave abnormality. Discharge Plan Triage Chief Complaint: Chest Pain ED Provider: Rylan Hooper Dx/Rx/DC Orders Clinical Impression: Chest pain, History of TX (myocardial infarction) Instructions: ED Chest Pain, Uncertain Cause Prescriptions: No Action Refresh Tears 0.5 % drops 1 drp OPHTHALMIC 4-8XD PRN (Reason: Dry Eyes) atorvastatin [Lipitor] 10 mg tablet 10 mg PO QHS Qty: 90 3RF cholecalciferol (vitamin D3) 50 MCG capsule 50 mcg PO DAILY fluoxetine 40 mg capsule 40 mg PO DAILY potassium chloride 10 mEq capsule, extended release 20 meq PO BID Label Comments: TAKE 2 CAPSULES BY MOUTH TWICE DAILY vancomycin 125 mg capsule 125 mg PO 4X/DAY Label Comments: TAKE 1 CAPSULE BY MOUTH FOUR TIMES DAILY EVERY DAY aspirin [Adult Low Dose Aspirin] 81 mg tablet,delayed release (DR/EC) 81 mg PO DAILY hydrocodone-acetaminophen [hydrocodone-acetaminophen] 1 TABLET tablet 1 tab PO Q6H PRN PRN (Reason: Pain) 3 Days Qty: 10 0RF Eliquis 5 mg tablet 5 mg PO BID Qty: 60 7RF metoprolol tartrate 25 mg tablet 12.5 mg PO BID Qty: 90 3RF Primary Care Provider: Eugene Alfonso Chi Referrals: Eugene Alfonso Chi, MD [Primary Care Provider] - 1-2 Days if not improving Activity Restrictions/Additional Instructions: Your labs, EKG and chest x-ray were unremarkable. Clinically I think this is chest wall pain. Tylenol and Motrin for pain. Follow-up with your doctor if not improving return if worse. Disposition Disposition: Home, Self Care
[2022-04-27 22:36] LABS: Absolute Lymphocyte Count 2.78 X10^3/uL (0.83-4.51); Basophil# 0.06 X10^3/uL; Basophil% 0.6 % (0-1); Eosinophil# 0.41 X10^3/uL; Eosinophils% 3.8 % (0-5); Hematocrit 38.4 % (37-47); Lymphocyte # 2.78 X10^3/ul (0.83-4.51); Lymphocyte % 25.8 % (19-41); Mean Corp Hgb Conc 31.3 g/dL (32-36); Mean Corpuscular Hgb 27.7 pg (27.0-32.0); Mean Corpuscular Volume 88.7 fL (81-99); Mean Platelet Vol. 10.5 fl (6.2-12.0); Monocyte# 1.41 X10^3/uL; Monocyte% 13.1 % (0-10); NRBC Flagged by Analyzer 0 % (0-5); Neutrophil # 6.04 X10^3/uL (2.7-7.7); Neutrophil % 56.1 % (47-70); Platelet Count 355 K/mm3 (150-450); RBC Distribution Width CV 14.9 % (11.6-14.6); RBC Distribution Width SD 48.2 fl (35.1-43.9); Red Blood Count 4.33 M/mm3 (4.2-5.4); White Blood Count 10.8 K/mm3 (4.4-11.0)
--- NOTE | 2022-04-27 22:40 | RAD_ITS ---
STUDY: X-RAY CHEST REASON FOR EXAM: Female, 71 years old. Chest pain. TECHNIQUE: Single AP portable view of the chest. COMPARISON: 03/18/2022. FINDINGS: Persistent mild elevation of the right hemidiaphragm. The lungs are clear. There is no demonstrated pleural abnormality. Normal size heart. Normal mediastinum and dana. Normal visualized pulmonary arteries. Normal visualized aortic arch and descending thoracic aorta. There are diffuse degenerative changes of the visualized thoracic spine. There is degenerative osteoarthritis of the bilateral shoulders. There is no demonstrated abnormality of the visualized soft tissue structures of the upper abdomen. RAD/Chest 1 View (Portable) IMPRESSION: Degenerative changes, as described above. No demonstrated acute cardiopulmonary process. No major interval change. Electronically Signed: Jg June DO at 22:58 EDT ,
[2022-04-27 22:54] LABS: Anion Gap 5 (5-15); BUN 15 mg/dL (7-18); BUN/Creat Ratio 16.4 RATIO (10-20); Calcium,Total 9.5 mg/dL (8.5-10.1); Chloride 105 mmol/L (98-107); Creatinine, Serum 0.92 mg/dL (0.55-1.02); EST Glomerular Filtration Rate 64 mL/min (>60); Est Glom Filt Rate - Afr Amer 77 mL/min (>60); Estimated Creatinine Clearance 43.07 ml/min; Glucose 115 mg/dL (74-106); Potassium 4.2 mmol/L (3.5-5.1); Sodium Level 139 mmol/L (136-145); Troponin-I HS 3 pg/mL (3.0-54.0)
[2022-04-27 23:17] VITALS: BP 132/60; PULSE 78; RESP 17; TEMP 37.1; O2SAT 98
== END 2022-04-27 23:19 | disposition home or self-care (01) ==
PROVIDERS: Emergency Provider Emergency Medicine; PCP Family Medicine Geriatric Medicine; Visit Provider Emergency Medicine
DX: R07.9 Chest pain, unspecified (principal); I25.10 Atherosclerotic heart disease of native coronary artery without angina pectoris; I25.2 Old myocardial infarction; Z99.81 Dependence on supplemental oxygen; Z95.5 Presence of coronary angioplasty implant and graft
CPT/HCPCS: 71045; 80048; 84484; 85025; 93005; 96374; 99284; A4216

== ENCOUNTER → 2022-06-16 | Outpatient (CLI) | payer MEDICARE, SELFPAY ==
[2020-12-05 14:34] VITALS: BMI 31.7
--- NOTE | 2022-06-16 15:52 | CT_ITS ---
STUDY: CT CHEST WITHOUT CONTRAST REASON FOR EXAM: Female, 72 years old. PULM NODULE RADIATION DOSAGE (If Supplied By Facility): CTDIvol = ( 10.14 ) mGy, DLP = ( 311.72 ) mGycm TECHNIQUE: Transaxial imaging was performed without the administration of intravenous contrast material. Multiplanar coronal and sagittal images were reformatted. Individualized dose optimization techniques were used for this CT. COMPARISON: Comparison is made with prior study dated 06/16/2021. FINDINGS: CHEST Stable appearance of the bilateral breast prostheses. Once again, surgical clips are seen in the right axillary region. Hyperinflation. Stable emphysematous changes as well as scarring in both lungs more pronounced at the lung bases. There is no demonstrated pleural abnormality. There are calcifications of the coronary arteries. There are multiple small lymph nodes within the mediastinum, which are normal in size and morphology most compatible with reactive lymph hyperplasia. Normal hilar regions. Normal unenhanced pulmonary arteries. There is atherosclerotic calcification of the aortic arch . There are multi-level degenerative changes of the thoracic spine. Gallstones. Lap band device is seen in the region of the stomach. CT/Chest without Contrast IMPRESSION: Stable examination. Electronically Signed: Jordan Adame MD at 8:54 EDT ,
== END | disposition home or self-care (01) ==
LOC: CT 15:51
PROVIDERS: PCP Family Medicine Geriatric Medicine; Referring Provider Internal Medicine Pulmonary Disease; Visit Provider Internal Medicine Pulmonary Disease
DX: R91.1 Solitary pulmonary nodule (principal)
CPT/HCPCS: 71250

== ENCOUNTER → 2022-07-06 | Outpatient (CLI) | payer MEDICARE, SELFPAY ==
[2020-12-05 14:34] VITALS: BMI 31.7
[2022-07-06 16:33] LABS: Absolute Lymphocyte Count 1.59 X10^3/uL (0.83-4.51); Absolute Neutrophil Count 4.5 X10^3/uL (2.0-7.7); Basophil# 0.06 X10^3/uL; Basophil% 0.8 % (0-1); Eosinophil# 0.29 X10^3/uL; Eosinophils% 3.9 % (0-5); Hematocrit 40.4 % (37-47); Hemoglobin 12.3 g/dL (12.0-15.0); Lymphocyte # 1.59 X10^3/ul (0.83-4.51); Lymphocyte % 21.4 % (19-41); Mean Corp Hgb Conc 30.4 g/dL (32-36); Mean Corpuscular Hgb 27.6 pg (27.0-32.0); Mean Corpuscular Volume 90.8 fL (81-99); Monocyte# 0.99 X10^3/uL; Monocyte% 13.3 % (0-10); NRBC Flagged by Analyzer 0 % (0-5); Neutrophil # 4.47 X10^3/uL (2.7-7.7); Neutrophil % 60.1 % (47-70); Platelet Count 401 K/mm3 (150-450); RBC Distribution Width CV 17.1 % (11.6-14.6); RBC Distribution Width SD 57.1 fl (35.1-43.9); Red Blood Count 4.45 M/mm3 (4.2-5.4); White Blood Count 7.4 K/mm3 (4.4-11.0)
[2022-07-06 16:47] LABS: Vitamin D,25 Hydroxy 71.8 ng/mL
[2022-07-06 16:58] LABS: ALB/GLOB Ratio 0.8 RATIO (0.9-2.4); AST(SGOT) 21 U/L (15-37); Alanine Aminotransfer ALT/SGPT 27 U/L (13-56); Albumin, Serum 2.9 g/dL (3.2-5.0); Alkaline Phosphatase 117 U/L (45-117); Anion Gap 6 (5-15); BUN 14 mg/dL (7-18); BUN/Creat Ratio 13.9 RATIO (10-20); Calcium,Total 9.2 mg/dL (8.5-10.1); Chloride 104 mmol/L (98-107); Creatinine, Serum 1.01 mg/dL (0.55-1.02); EST Glomerular Filtration Rate 57 mL/min (>60); Est Glom Filt Rate - Afr Amer 69 mL/min (>60); Globulin 3.7 g/dL (2.2-4.2); Glucose 134 mg/dL (74-106); Potassium 4.2 mmol/L (3.5-5.1); Protein, Total 6.6 g/dL (6.4-8.2); Sodium Level 139 mmol/L (136-145); Thyroid Stim Hormone (TSH) 1.73 uIU/mL (0.358-3.74)
== END | disposition home or self-care (01) ==
LOC: POLAB3 12:39
PROVIDERS: PCP Family Medicine Geriatric Medicine; Visit Provider Family Medicine Geriatric Medicine
DX: E55.9 Vitamin D deficiency, unspecified (principal); R53.83 Other fatigue
CPT/HCPCS: 36415; 80053; 82306; 84443; 85025

== ENCOUNTER → 2022-09-16 | Outpatient (CLI) | payer MEDICARE, SELFPAY ==
[2020-12-05 14:34] VITALS: BMI 31.7
[2022-09-16 12:52] LABS: Absolute Lymphocyte Count 1.88 X10^3/uL (0.83-4.51); Absolute Neutrophil Count 5.2 X10^3/uL (2.0-7.7); Basophil# 0.05 X10^3/uL; Basophil% 0.6 % (0-1); Eosinophil# 0.29 X10^3/uL; Eosinophils% 3.3 % (0-5); Hematocrit 37.2 % (37-47); Hemoglobin 12.1 g/dL (12.0-15.0); Lymphocyte # 1.88 X10^3/ul (0.83-4.51); Lymphocyte % 21.3 % (19-41); Mean Corp Hgb Conc 32.5 g/dL (32-36); Mean Corpuscular Hgb 28.3 pg (27.0-32.0); Mean Corpuscular Volume 87.1 fL (81-99); Mean Platelet Vol. 10.8 fl (6.2-12.0); Monocyte# 1.33 X10^3/uL; Monocyte% 15.1 % (0-10); NRBC Flagged by Analyzer 0 % (0-5); Neutrophil # 5.22 X10^3/uL (2.7-7.7); Platelet Count 370 K/mm3 (150-450); RBC Distribution Width CV 15.3 % (11.6-14.6); RBC Distribution Width SD 48.3 fl (35.1-43.9); Red Blood Count 4.27 M/mm3 (4.2-5.4); White Blood Count 8.8 K/mm3 (4.4-11.0)
[2022-09-16 12:55] LABS: Erythrocyte Sedimentation Rate 53 mm/hr (0-30)
[2022-09-16 13:29] LABS: ALB/GLOB Ratio 0.8 RATIO (0.9-2.4); AST(SGOT) 15 U/L (15-37); Alanine Aminotransfer ALT/SGPT 21 U/L (13-56); Albumin, Serum 2.8 g/dL (3.2-5.0); Alkaline Phosphatase 121 U/L (45-117); Anion Gap 4 (5-15); BUN 8 mg/dL (7-18); CRP 4.97 mg/L (0.0-3.0); Chloride 106 mmol/L (98-107); EST Glomerular Filtration Rate 74 mL/min (>60); Est Glom Filt Rate - Afr Amer 90 mL/min (>60); Globulin 3.3 g/dL (2.2-4.2); Glucose 103 mg/dL (74-106); Protein, Total 6.1 g/dL (6.4-8.2); Sodium Level 140 mmol/L (136-145)
[2022-09-17 15:08] LABS: Endomysial Antibody IgA Negative (Negative)
[2022-09-17 15:39] LABS: Immunoglobulin A 82 mg/dL (64-422); t-Transglutaminase IgA <2 U/mL (0-3)
[2022-09-19 10:30] LABS: Calprotectin, Stool <16 ug/g (0-120)
[2022-09-23 15:08] LABS: Immunoglobulin A 82 mg/dL (64-422); Immunoglobulin G 439 mg/dL (586-1602); Immunoglobulin M 110 mg/dL (26-217)
[2022-09-23 21:02] LABS: Immunoglobulin E 28 IU/mL (6-495)
== END | disposition home or self-care (01) ==
LOC: LAB 12:31
PROVIDERS: Nurse Practitioner Adult Health; PCP Family Medicine Geriatric Medicine; Visit Provider Internal Medicine Gastroenterology
DX: K58.9 Irritable bowel syndrome, unspecified (principal); A04.71 Enterocolitis due to Clostridium difficile, recurrent; R19.7 Diarrhea, unspecified
CPT/HCPCS: 36415; 80053; 82784; 82785; 83516; 83630; 83993; 85025; 85652; 86140; 86255; 87177; 87209; 87493; 87506

== ENCOUNTER 2022-10-27 06:49 | Day surgery (SDC) | payer MEDICARE, SELFPAY ==
[2020-12-05 14:34] VITALS: BMI 31.7
--- NOTE | 2022-10-27 07:09 | PCM.HP.BLA ---
History and Physical Date of Admission: 10/27/22 ANDRADE SANTOS, is a 72 F who presents to the office today for recurrent C diff diarrhea.? She had recurrent diverticulitis for which she was hospitalized in December 2021; she was diagnosed with C. difficile for the first time then.? She was treated initially with vancomycin but that treatment failed.? She was referred to infectious disease Dr. Ware who treated her with 2 rounds of Dificid; her symptoms completely resolved. Symptoms returned in 07/2022--she just completed another 2 rounds of Dificid, 14 days each.? No repeat test done. No change in symptoms with these recent rounds of Dificid. Still having liquid stool and frequent BMs. No formed stools. BM can be every hour or every 3 hours. Diarrhea isn't waking her at night. No abd pain or cramping. Eating yogurt with active cultures. Not on a probiotic. No meds for diarrhea, she had been taking Imodium but no relief. No rx antidiarrheal. No hematochezia or melena. She has loss 40 lbs since start of 2021, but the weight loss has stopped.? Appetite is good, she and her agree she is able to eat more lately. No nausea, vomiting, early satiety, dysphagia. No abd pain. ED 2021 for C diff; Distal descending colon diverticulitis, less conspicuous since prior CT. Admitted 12/16/21-12/21/21 for recurrent diverticulitis/C diff colitis. CT abdomen pelvis with focal inflammatory change of the mid to distal colon over segment 7.3 cm with wall thickening, stranding, edema and narrowing of the lumen with a focal small outpouching possibly an elongated diverticulum versus a small focal contained micro leak, diffuse edema of the colon compatible with colitis as well as mid wall thickening and edema of the cecum. No abscess or pneumoperitoneum. 2005 colonoscopy On q6mos rituximab for Tami's; next infusion is scheduled for 10/13/22. She is supposed to be on antibiotic for prevention of lung infection, but isn't due to C diff.? She required supplemental oxygen. Labs: 01/2022 +C diff, neg lactoferrin, neg enteric pathogens, neg O&P, neg FOBT 12/2021 +C diff ROS Const Constitutional: No fatigue ENT ENT: No difficulty swallowing Gastro GI: Positive for bloating and diarrhea; No abdominal pain, belching, change in bowel habits, change in stool character, coffee ground emesis, constipation, cramping, heartburn, difficulty swallowing, feeling full early, excessive flatus, incontinent of stools, Vomiting blood/hematemesis, Blood in stool, loose stools, Black,tarry stools, nausea/dyspepsia, pain with swallowing, vomiting or other Musc Musculoskeletal: Positive for abnormal gait; No joint pain Skin Skin: No yellowing of the eye or itchy eyes Neuro Neurology: Positive for abnormal gait Psych Psychiatric: No anxiety and No depression Endo Endocrine: No fatigue Aller/Imm Allergy/Immunologic: No itchy eyes Yan/Lymp Hematologic/Lymphatic: No easy bleeding or easy bruising Exam Const General: cooperative and no acute distress Other: in wheelchair, on supplemental O2 per NC Eyes General: appearance normal, both eyes and all related structures GI Inspection: normal to inspection Palpation: soft, no hepatosplenomegaly, no masses and nontender Quality Reporting Tobacco Screening ([facility] 138) Smoking Status: Never smoker Assessment and Plan Assessment and Plan (1) Recurrent Clostridioides difficile diarrhea: ?Status:?Acute ?Plan: 72 yr old female with recurrent C diff infection. She is immune suppressed. On rituximab for Tami's granulomatosis. Case discussed with Dr Mock. Will check immunoglobulins, inflammatory markers in blood and stool, celiac, stool for infection. She is scheduled for colonoscopy with Dr Mock on 10/27/22; he will plan on doing vancomycin rectal wash at that time; we will try to find a sooner date.. Rx colestipol 1 gram 1-2x daily for the diarrhea. F/u in office 2 wks after colonoscopy. SuTab prep per pt preference. ? ? ? Orders: Orders Comprehensive Metabolic Profil Today A04.71 - Enterocolitis due to Clostridium difficile, recurrent ? CRP Today A04.71 - Enterocolitis due to Clostridium difficile, recurrent ? CBC W/Diff, Automated Today A04.71 - Enterocolitis due to Clostridium difficile, recurrent, K58.9 - Irritable bowel syndrome without diarrhea ? Erythrocyte Sed Rate Today A04.71 - Enterocolitis due to Clostridium difficile, recurrent ? Calprotectin, Stool Today A04.71 - Enterocolitis due to Clostridium difficile, recurrent ? Stool Lactoferrin/WBC Today A04.71 - Enterocolitis due to Clostridium difficile, recurrent, K58.9 - Irritable bowel syndrome without diarrhea ? Celiac Disease Profile Today A04.71 - Enterocolitis due to Clostridium difficile, recurrent ? Immunoglobulins G/A/M/E Today A04.71 - Enterocolitis due to Clostridium difficile, recurrent ? Ova and Parasites [id number] Today A04.71 - Enterocolitis due to Clostridium difficile, recurrent, K58.9 - Irritable bowel syndrome without diarrhea ? CDIFF (PCR) Today A04.71 - Enterocolitis due to Clostridium difficile, recurrent ? ENTERIC PATHOGEN PANEL STOOL Today A04.71 - Enterocolitis due to Clostridium difficile, recurrent, K58.9 - Irritable bowel syndrome without diarrhea, R19.7 - Diarrhea, unspecified ? Miscellaneous Lab Procedure Today A04.71 - Enterocolitis due to Clostridium difficile, recurrent ? Medications: New colestipol 1 g? PO BID 60 tabs 2RF diarrhea ? ? sod sulf-pot chloride-mag sulf 1.479-0.188- 0.225 gram (Sutab) ?PO PER PKG DIR 24 tabs 0RF ? ? I have examined the patient and the H&P has been reviewed. There are no clinical changes since date of exam.
[2022-10-27 07:18] VITALS: BP 130/80; PULSE 95; RESP 16; TEMP 36.6; O2SAT 98; BMI 28.6
[2022-10-27] MEDS: Lactated Ringers 1,000 ML 15 ML IV (07:39)
--- NOTE | 2022-10-27 07:45 | COLBX_PTH ---
PATIENT: ANDRADE SANTOS LOC: EN U#:[id number] AGE/SX: 72/F ROOM: RE10/27/[address]: Dr. Carlin Mock DO : 1950 BED: DIS: 10/27/2022 SPEC #: [id number] RECD: 10/27/22 10:08 STATUS: KALIN JEFFREYHalima #: [id number] HELIO: 10/27/22 07:[address]: Carlin Mock DEPT: SURGICAL PATHOLOGY RECD BY: Fela Doss ENTERED: 10/27/22 10:59 SP TYPE: COLON BX OTHR DR: Dr. Eugene Alfonso MD Tissues: A - Ileum, NOS B - COLON BIOPSY Procedures: Trichrome (control) Special Stain Group II Surgery Specimen Level IV HEADER OPERATION: Colonoscopy (MAC) with vancomycin wash and biopsies PRE-OP DIAGNOSIS: Recurrent Clostridioides difficile diarrhea TISSUE SUBMITTED: A ? Terminal ileum biopsy, B ? Random colon biopsies MICROSCOPIC DIAGNOSIS A. Terminal ileum, biopsy: Fragments of small intestinal mucosa, no pathologic diagnosis. B. Colon, random biopsy: Fragments of colonic mucosa with changes consistent with lymphocytic (microscopic) colitis. Tubular adenoma. See comment. ANA:ade 10/28/2022 COMMENT B. Trichrome stain with matched control is also used in the evaluation of the specimen and does not show significant thickening of subepithelial collagen band. MICROSCOPIC DESCRIPTION Slides are reviewed. GROSS DESCRIPTION A - Received in fixative is one container labeled with the patient's name and designated terminal ileum. The specimen consists of multiple irregular fragments of light hendrickson soft tissue that in aggregate measure 0.8 x 0.5 x 0.1 cm. The specimen is totally submitted in one cassette. B - Received in fixative is one container labeled with the patient's name and designated random colon biopsy. The specimen consists of multiple irregular fragments of light hendrickson soft tissue that in aggregate measure 2 x 0.6 x 0.1 cm. The specimen is totally submitted in one cassette. / ANA:ade 10/27/2022 TC:3 CPT: 19198 x2, 82979
[2022-10-27] MEDS: Vancomycin HCl 500 MG, Sodium Chloride Irrig Solution 90 ML RC (08:02)
[2022-10-27 08:15] VITALS: BP 116/58; BP 130/80; PULSE 73; RESP 16; TEMP 36.2; O2SAT 97
--- NOTE | 2022-10-27 08:18 | OP.COLON_ITS ---
Patient Name: Karen Falk Procedure Date: 10/27/2022 7:36 AM Date of : 1950 Age: 72 Procedure: Colonoscopy Indications: Clinically significant diarrhea of unexplained origin Providers: Carlin Mock DO Referring MD: Eugene Alfonso MD Medicines: Monitored Anesthesia Care Patient Profile: This is a 72 year old female. Refer to note in patient chart for documentation of history and physical. Last Colonoscopy: 3 years ago. Complications: No immediate complications. Procedure: Pre-Anesthesia Assessment: - Prior to the procedure, a History and Physical was performed, and patient medications and allergies were reviewed. The risks and benefits of the procedure and the sedation options and risks were discussed with the patient. All questions were answered and informed consent was obtained. Patient identification and proposed procedure were verified by the physician in the pre-procedure area. Mental Status Examination: alert and oriented. Airway Examination: normal oropharyngeal airway and neck mobility. Respiratory Examination: clear to auscultation. CV Examination: normal. Prophylactic Antibiotics: The patient does not require prophylactic antibiotics. Prior Anticoagulants: The patient has taken no previous anticoagulant or antiplatelet agents. ASA Grade Assessment: II - A patient with mild systemic disease. After reviewing the risks and benefits, the patient was deemed in satisfactory condition to undergo the procedure. The anesthesia plan was to use monitored anesthesia care (MAC). Immediately prior to administration of medications, the patient was re-assessed for adequacy to receive sedatives. The heart rate, respiratory rate, oxygen saturations, blood pressure, adequacy of pulmonary ventilation, and response to care were monitored throughout the procedure. The physical status of the patient was re-assessed after the procedure. After I obtained informed consent, the scope was passed under direct vision. Throughout the procedure, the patient's blood pressure, pulse, and oxygen saturations were monitored continuously. The Colonoscope was introduced through the anus and advanced to the terminal ileum. The colonoscopy was performed without difficulty. The patient tolerated the procedure well. The quality of the bowel preparation was good. Scope In: 7:53:10 AM Scope Withdrawal Time 0 hours 11 minutes 14 seconds Scope Out: 8:09:32 AM Total Procedure Duration Time 0 hours 16 minutes 22 seconds Findings: The perianal and digital rectal examinations were normal. A few small-mouthed diverticula were found in the sigmoid colon and descending colon. A 5 mm polyp was found in the sigmoid colon. The polyp was sessile. The polyp was removed with a cold snare. Resection and retrieval were complete. Verification of patient identification for the specimen was done. Estimated blood loss was minimal. An area of mildly congested mucosa was found in the sigmoid colon, in the descending colon, at the splenic flexure and in the ascending colon. Biopsies were taken with a cold forceps for histology. Verification of patient identification for the specimen was done. Estimated blood loss was minimal. The terminal ileum appeared normal. Biopsies were taken with a cold forceps for histology. Verification of patient identification for the specimen was done. Estimated blood loss was minimal. A benign-appearing, intrinsic mild stenosis measuring 2 cm (in length) was found in the sigmoid colon and was traversed. Lavage of the area was performed using 50 - 200 mL of Vancomyocin [Solution] Impression: - Diverticulosis in the sigmoid colon and in the descending colon. - One 5 mm polyp in the sigmoid colon, removed with a cold snare. Resected and retrieved. - Congested mucosa in the sigmoid colon, in the descending colon, at the splenic flexure and in the ascending colon. Biopsied. - The examined portion of the ileum was normal. Biopsied. - Stricture in the sigmoid colon. Recommendation: - Discharge patient to home. - Resume previous diet. - Continue present medications. - Await pathology results. - Repeat colonoscopy in 5 years for surveillance. Procedure Code(s): --- Professional --- 93088, Colonoscopy, flexible; with removal of tumor(s), polyp(s), or other lesion(s) by snare technique 97368, 59, Colonoscopy, flexible; with biopsy, single or multiple CPT copyright 2017 [employer]. All rights reserved. The codes documented in this report are preliminary and upon synthetic staple extruder review may be revised to meet current compliance requirements. Carlin Mock DO 10/27/2022 8:18:02 AM This report has been signed electronically. Number of Addenda: 0 Note Initiated On: 10/27/2022 7:36 AM
--- NOTE | 2022-10-27 08:18 | OP.CCLET_ITS ---
10/27/2022 Eugene Alfonso MD [address] [place] [address] Re : Colonoscopy procedure for Karen Falk Dear Dr. Alfonso This procedure was performed on Thursday, October 27, 2022. My impressions and recommendations are as follows: Impressions : - Diverticulosis in the sigmoid colon and in the descending colon. - One 5 mm polyp in the sigmoid colon, removed with a cold snare. Resected and retrieved. - Congested mucosa in the sigmoid colon, in the descending colon, at the splenic flexure and in the ascending colon. Biopsied. - The examined portion of the ileum was normal. Biopsied. - Stricture in the sigmoid colon. Recommendations : - Discharge patient to home. - Resume previous diet. - Continue present medications. - Await pathology results. - Repeat colonoscopy in 5 years for surveillance. My findings are described in the full procedure note, which is enclosed. If I can be of further assistance, please feel free to contact me at . Sincerely, Carlin Mock, 10/27/2022 8:18:02 AM This report has been signed electronically.
[2022-10-27 08:20] VITALS: BP 123/62; BP 130/80; PULSE 71; RESP 16; O2SAT 95
[2022-10-27 08:25] VITALS: BP 106/53; BP 130/80; PULSE 77; RESP 16; O2SAT 100
[2022-10-27 08:30] VITALS: BP 104/69; BP 130/80; PULSE 69; RESP 16; TEMP 36.2; O2SAT 100
[2022-10-27 08:55] VITALS: BP 130/80
== END 2022-10-27 09:05 | disposition home or self-care (01) ==
LOC: EN 06:51 → AC 06:52
PROVIDERS: PCP Family Medicine Geriatric Medicine; Referring Provider Family Medicine Geriatric Medicine; Visit Provider Internal Medicine Gastroenterology
PROC: 0DJD8ZZ Inspection of Lower Intestinal Tract, Via Natural or Artificial Opening Endoscopic (ICD-10-PCS; CPT 45378; principal; 2022-10-27 07:40)
DX: D12.5 Benign neoplasm of sigmoid colon (principal); I48.0 Paroxysmal atrial fibrillation; K56.699 Other intestinal obstruction unspecified as to partial versus complete obstruction; K52.832 Lymphocytic colitis; K63.89 Other specified diseases of intestine; A04.71 Enterocolitis due to Clostridium difficile, recurrent; K57.30 Diverticulosis of large intestine without perforation or abscess without bleeding; I25.2 Old myocardial infarction; I10 Essential (primary) hypertension; F41.9 Anxiety disorder, unspecified; F32.A Depression, unspecified; Z99.81 Dependence on supplemental oxygen; Z79.899 Other long term (current) drug therapy; Z79.82 Long term (current) use of aspirin
CPT/HCPCS: 45385; 45380; 88305; 88313; J7120; J2405

== ENCOUNTER → 2023-01-04 | Outpatient (CLI) | payer MEDICARE, SELFPAY ==
[2020-12-05 14:34] VITALS: BMI 31.7
[2023-01-04 13:20] LABS: Absolute Lymphocyte Count 2.62 X10^3/uL (0.83-4.51); Absolute Neutrophil Count 8.2 X10^3/uL (2.0-7.7); Basophil# 0.09 X10^3/uL; Basophil% 0.7 % (0-1); Eosinophil# 0.55 X10^3/uL; Eosinophils% 4.3 % (0-5); Hemoglobin 12.5 g/dL (12.0-15.0); Lymphocyte # 2.62 X10^3/ul (0.83-4.51); Lymphocyte % 20.3 % (19-41); Mean Corp Hgb Conc 31.3 g/dL (32-36); Mean Corpuscular Volume 89.7 fL (81-99); Mean Platelet Vol. 10.6 fl (6.2-12.0); Monocyte# 1.43 X10^3/uL; Monocyte% 11.1 % (0-10); NRBC Flagged by Analyzer 0 % (0-5); Neutrophil # 8.16 X10^3/uL (2.7-7.7); Neutrophil % 63.1 % (47-70); Platelet Count 395 K/mm3 (150-450); RBC Distribution Width CV 14.7 % (11.6-14.6); RBC Distribution Width SD 48.4 fl (35.1-43.9); Red Blood Count 4.46 M/mm3 (4.2-5.4); White Blood Count 12.9 K/mm3 (4.4-11.0)
[2023-01-04 13:51] LABS: Vitamin D,25 Hydroxy 51.1 ng/mL
[2023-01-04 14:01] LABS: ALB/GLOB Ratio 0.7 RATIO (0.9-2.4); AST(SGOT) 19 U/L (15-37); Alanine Aminotransfer ALT/SGPT 23 U/L (13-56); Albumin, Serum 2.8 g/dL (3.2-5.0); Alkaline Phosphatase 107 U/L (45-117); Anion Gap 7 (5-15); BUN 19 mg/dL (7-18); BUN/Creat Ratio 17.9 RATIO (10-20); Calcium,Total 9.6 mg/dL (8.5-10.1); Chloride 107 mmol/L (98-107); Creatinine, Serum 1.06 mg/dL (0.55-1.02); EST Glomerular Filtration Rate 54 mL/min (>60); Est Glom Filt Rate - Afr Amer 65 mL/min (>60); Glucose 139 mg/dL (74-106); Potassium 3.8 mmol/L (3.5-5.1); Protein, Total 6.8 g/dL (6.4-8.2); Sodium Level 144 mmol/L (136-145); Thyroid Stim Hormone (TSH) 2.03 uIU/mL (0.358-3.74)
== END | disposition home or self-care (01) ==
LOC: POLAB3 13:07
PROVIDERS: PCP Family Medicine Geriatric Medicine; Visit Provider Family Medicine Geriatric Medicine
DX: E55.9 Vitamin D deficiency, unspecified (principal); R53.83 Other fatigue
CPT/HCPCS: 36415; 80053; 82306; 84443; 85025; 87077; 87086; 87088; 87186

== ENCOUNTER → 2023-03-02 | Outpatient (CLI) | payer MEDICARE, SELFPAY ==
[2020-12-05 14:34] VITALS: BMI 31.7
--- NOTE | 2023-03-02 11:45 | BI_ITS ---
MAMMOGRAPHY - BILATERAL SCREENING REASON FOR EXAM: Female, 72 years old. Routine annual screening examination. PERTINENT HISTORY: Personal history of breast cancer. Prior right lumpectomy. Grandmother with breast cancer. TECHNIQUE: Digital bilateral breast margaux (3D mammographic acquisition) in the CC and MLO projections. 2-D mediolateral oblique (MLO) and craniocaudad (CC) views of both breasts were obtained. CAD: Full Field Digital Mammography with Computer Added Detection was performed. COMPARISON: Comparison is made with prior study March 01, 2022 and February 26, 2021. FINDINGS: Breast Composition: The breasts are almost entirely fatty. There are no dominant masses or suspicious calcifications. Stable deformity of the right breast secondary to prior lumpectomy and radiation treatment. No other significant abnormalities are identified. There has been no significant change since the prior study. BI/SCRN MAMM (CAD)W/MARGAUX BILAT IMPRESSION: Stable bilateral screening mammogram. Yearly follow-up mammogram recommended. (A) ASSESSMENT CATEGORY: BIRADS Category 2: Benign. A letter regarding these results will be sent to the patient by the facility within 30 days. Approximately 10% of breast cancers are not detected by mammography. A normal mammogram should not delay biopsy of a clinically suspicious abnormality. [id number] Electronically Signed: Jordan Adame MD at 12:33 EDT ,
== END | disposition home or self-care (01) ==
PROVIDERS: PCP Family Medicine Geriatric Medicine; Referring Provider Family Medicine Geriatric Medicine; Visit Provider Family Medicine Geriatric Medicine
DX: Z12.31 Encounter for screening mammogram for malignant neoplasm of breast (principal); Z85.3 Personal history of malignant neoplasm of breast; Z80.3 Family history of malignant neoplasm of breast
CPT/HCPCS: 77063; 77067

== ENCOUNTER 2023-03-23 01:32 | Emergency (ER) | payer MEDICARE, SELFPAY ==
[2020-12-05 14:34] VITALS: BMI 31.7
[2023-03-23 01:33] VITALS: BP 158/74; PULSE 86; RESP 18; TEMP 36.1; O2SAT 97; BMI 29.5
[2023-03-23] MEDS: Ketorolac 30 MG/ML Syringe IM (02:15)
[2023-03-23] MEDS: Orphenadrine 60 MG/2 ML Ampul IM (02:15)
[2023-03-23] MEDS: HYDROcodone Bitartrate/Apap 5/325 Tablet PO (02:15)
--- NOTE | 2023-03-23 02:49 | EX.ED.GENINJ ---
HPI History of Present Illness Chief Complaint: Back Narrative Narrative: Patient is a 72-year-old female who is presenting to the ER with acute on chronic lumbosacral back pain for the past month. Patient stated that she had a twisting motion approximate 1 month ago that threw her back out patient had no fall, no injury. Patient stated that she has been using moist heat and [id number] Tylenol and ibuprofen for pain relief and after 3 weeks her back did feel better. The last couple days her back has been hurting again, especially tonight. Patient been having back spasms while she been laying down trying to sleep. Patient has no radiculopathy or paresthesias into her lower extremities. Patient has no saddle anesthesia or cauda equina symptoms. Patient has been using heat and no ice. She has not done any stretching in the past month. Patient has not called her PCP in the last month. Patient has seen a chiropractor many years ago. She has been doing no stretching exercises at home. She came in by EMS secondary to muscle spasms when laying in bed tonight. Her is currently on a fishing trip, patient will come home on Tuesday. Patient uses a walker to ambulate at home. Patient does not have the keys to her house, her neighbors does. The neighbor pill has taken a sleeping pill and will most likely be sleeping all night. Patient does not have anybody that can come pick her up. Patient states if she calls her neighbor if she will not wake up until the morning. Patient currently has no way to get home. [facility] Medical History (Updated 03/23/23 @ 02:[address] Jay Wright DO) Anxiety Arthritis Atherosclerotic heart disease of [place] coronary artery without angina pectoris Back pain Bladder disease Breast cancer C. difficile colitis Cancer Cardiology follow-up encounter Chronic rhinitis Colitis Depression Diverticulitis Easy bruising Essential (primary) hypertension History of atrial fibrillation History of breast cancer History of diverticulitis History of echocardiogram History of edema History of ST elevation myocardial infarction (STEMI) (11/25/20) History of stress test Hoarseness Loss of hearing Mixed hyperlipidemia Neuropathy Non-smoker On home oxygen therapy Osteopenia Paroxysmal atrial fibrillation Post-menopausal Shortness of breath on exertion Tear film insufficiency Uses wheelchair Vitamin deficiency Walker as ambulation aid Wears glasses Wears hearing aid Tami's granulomatosis Home Medications carboxymethylcellulose sodium 0.5 % eye drops (Refresh Tears) 1 drp ophthalmic (eye) 4-8XD PRN Dry Eyes 08/31/18 [History Last Taken 01/18/22] aspirin 81 mg tablet,delayed release (Adult Low Dose Aspirin) 81 mg PO DAILY 01/19/22 [History Last Taken 10/24/22] potassium chloride 10 mEq capsule,extended release 20 meq PO BID SUPPLEMENT 01/19/22 [History Last Taken 01/19/22] atorvastatin 10 mg tablet (Lipitor) 10 mg PO QHS cholesterol #90 tabs 05/20/22 [Rx Last Taken Unknown] handicap placcard #1 ea 12/15/22 [Rx Last Taken Unknown] budesonide 3 mg capsule,delayed,extended release 9 mg PO QAM microscopic colitis #270 ea 01/21/23 [Rx Last Taken Unknown] metoprolol tartrate 25 mg tablet 12.5 mg PO BID #90 tabs 01/25/23 [Rx Last Taken Unknown] cholecalciferol (vitamin D3) 25 mcg (1,000 unit) capsule (Vitamin D3) 25 mcg PO DAILY 03/23/23 [History Last Taken Unknown] diclofenac sodium 1 % topical gel 1 ea topical PRN PRN Pain 03/23/23 [History Last Taken Unknown] hydrocodone-acetaminophen 5-325mg 5mg-325mg 0.5 tab PO Q4H PRN PRN Pain 2 days #10 TABLETS 03/23/23 [Rx Last Taken Unknown] methocarbamol 500 mg tablet 500 mg PO Q8H PRN lumbar pain/spasm #14 tabs 03/23/23 [Rx Last Taken Unknown] Allergy/AdvReac Type Severity Reaction Status Date / Time No Known Allergies Allergy Verified 03/23/23 01:39 Family History Father Heart disease Colon cancer Mother Breast cancer CVA (cerebral vascular accident) Grandmother CVA (cerebral vascular accident) Brother Diabetes Surgical History H/O mastectomy History of adjustable gastric banding History of appendectomy History of cataract surgery History of coronary artery stent placement (11/25/20) History of left heart catheterization (05/15/08) History of radiofrequency ablation procedure for cardiac arrhythmia (05/15/19) History of tonsillectomy Hx of abdominoplasty Hx of breast reduction, elective Social History household members: spouse Smoking Status: Never smoker alcohol intake: never caffeine: No what type of physical activity do you participate in: swimming and aerobics frequency: 3-4 times per week ROS ROS ED ROS Narrative REVIEW OF SYSTEMS: Unless otherwise stated in this report the patient's positive and negative responses for review of systems for constitutional, eyes, ENT, cardiovascular, respiratory, gastrointestinal, neurological, , musculoskeletal, and integument systems and related systems to the presenting problem are either stated in the history of present illness or were not pertinent or were negative for the symptoms and/or complaints related to the presenting medical problem. EXAM Physical Exam Narrative Exam Narrative: Vital signs reviewed and patient is not hypoxic. General: The patient appears well and in no apparent distress. Patient is resting comfortably on cart. Not toxic, lethargic, or listless. Skin: Warm, dry, no pallor noted. There is no rash noted. Head: Normocephalic, atraumatic, no midline or paracervical tenderness to palpation. Full range of motion of cervical spine no difficulty. Eye: Normal conjunctiva, no drainage, EOMI. PERRL. Ears, Nose, Mouth, and Throat: oral mucosa is moist. Nares patent. Mouth without vesicles. Cardiovascular: Regular Rate and Rhythm, no murmurs, gallops, or rubs Respiratory: Patient is in no distress, no accessory muscle use, lungs are clear to auscultation, no wheezing, rales or rhonchi Back: Patient has moderate tenderness to palpation to bilateral paralumbar soft tissue, no rash. No midline lumbar tenderness to palpation. No tenderness to thoracic spine midline or parathoracic non-tender, no CVA tenderness bilaterally to percussion. NO CTLS midline or paraspinal tenderness to palpation. GI: Soft, no tenderness to palpation, no masses appreciated. No rebound, guarding, or rigidity noted. Musculoskeletal: The patient has full range of motion of all extremities and joints with no difficulty. Patient has no motor, no sensory deficits. Patient has bilateral positive straight leg raising test. No acute motor or sensory deficits to lower extremities bilateral. Neurological: A&O x4, normal speech, no focal neurological deficits. Psychiatric: Cooperative Const Vital Signs: 05/17/23 01:33 Temperature 96.9 F L Temperature Source Temporal Pulse Rate 86 Respiratory Rate 18 Blood Pressure 158/74 H Blood Pressure Mean 102 Pulse Ox 97 MDM MDM MDM Narrative Medical decision making narrative: Patient was given Toradol, Norflex and Erwin. Patient has no ride to get home. Patient will be sleeping in the emergency room until we can get her safe ride in the morning. Patient was educated on using ice and not heat. Patient was educated that she must start doing stretching exercises at home of lumbar sacral to help with her pain. Patient understands this. Patient understands she needs to call PCP for formal physical therapy as well and possibly follow-up with a chiropractor if needed. No questions at discharge. Differential Diagnosis Differential Diagnosis: Compression fracture, lumbar sacral muscle spasm, kidney stones, rash/shingles, chronic lumbar pain, herniated disc Treatment and Re-Evaluation Narrative: Patient feels better after Norflex, Erwin and Toradol. Patient will be sleeping until her ride home in the morning. Discharge Plan Triage Chief Complaint: Back ED Provider: Jay Wright Dx/Rx/DC Orders Clinical Impression: Chronic lumbosacral pain Instructions: Self-Care for Low Back Pain, Back Exercises: Lower Back Rotation, Back Exercises: Seated Rotation, Back Exercises: Side Stretch, Back Exercises: Lower Back Stretch, ED Back Care Tips Prescriptions: New hydrocodone-acetaminophen [hydrocodone-acetaminophen] 5-325 mg tablet 0.5 tab PO Q4H PRN PRN (Reason: Pain) 2 Days Qty: 10 0RF Rx Instructions: 0.5-1 tab every 4 hours prn pain methocarbamol 500 mg tablet 500 mg PO Q8H PRN (Reason: lumbar pain/spasm) Qty: 14 0RF No Action Refresh Tears 0.5 % drops 1 drp OPHTHALMIC 4-8XD PRN (Reason: Dry Eyes) atorvastatin [Lipitor] 10 mg tablet 10 mg PO QHS Qty: 90 3RF (DME) handicap placcard See Rx Instructions .Route .MEDSUPPLY Qty: 1 0RF Rx Instructions: Dx: Debility, Restrictive lung disease exp:5 years budesonide 3 mg capsule,delayed,extend.release 9 mg PO QAM Qty: 270 2RF potassium chloride 10 mEq capsule, extended release 20 meq PO BID Label Comments: TAKE 2 CAPSULES BY MOUTH TWICE DAILY aspirin [Adult Low Dose Aspirin] 81 mg tablet,delayed release (DR/EC) 81 mg PO DAILY cholecalciferol (vitamin D3) [Vitamin D3] 25 mcg (1,000 unit) Capsule 25 mcg PO DAILY diclofenac sodium 1 % Gel 1 ea TOPICAL PRN PRN (Reason: Pain) metoprolol tartrate 25 mg tablet 12.5 mg PO BID Qty: 90 3RF Primary Care Provider: Eugene Alfonso Chi Referrals: Eugene Alfonso Chi, MD [Primary Care Provider] - Activity Restrictions/Additional Instructions: Use ice 20 minutes on, 20 minutes off. Avoid heat. You must perform stretching exercises 3 times a day. Follow-up with chiropractor as necessary. Call PCP in the morning for to schedule formal physical therapy as well for chronic lumbar sacral pain for the last month. Disposition Disposition: Home, Self Care
== END 2023-03-23 07:12 | disposition home or self-care (01) ==
PROVIDERS: Emergency Provider Emergency Medicine; PCP Family Medicine Geriatric Medicine; Visit Provider Emergency Medicine
DX: M54.50 Low back pain, unspecified (principal); I10 Essential (primary) hypertension; G89.29 Other chronic pain; E78.2 Mixed hyperlipidemia; I25.10 Atherosclerotic heart disease of native coronary artery without angina pectoris; Z99.81 Dependence on supplemental oxygen; Z79.82 Long term (current) use of aspirin; K52.9 Noninfective gastroenteritis and colitis, unspecified; Z79.899 Other long term (current) drug therapy; Z98.84 Bariatric surgery status; Z95.5 Presence of coronary angioplasty implant and graft; X58.XXXA Exposure to other specified factors, initial encounter
CPT/HCPCS: 96372; 99283

== ENCOUNTER → 2023-04-02 | Outpatient (CLI) | payer MEDICARE, SELFPAY ==
[2020-12-05 14:34] VITALS: BMI 31.7
--- NOTE | 2023-04-02 09:08 | MRI_ITS ---
MRI lumbar spine. Comparison CT scan which includes the lumbar spine from January 19, 2022. Included sequences are sagittal T1, T2, STIR axial T1 and T2-weighted imaging. FINDINGS: Conus medullaris terminates at the L1 level. Lowest lumbar type vertebral body presumed to be L5. Slight retrolisthesis of L1 on L2. Slight anterolisthesis of L4 on L5. Disc height preserved L4/L5. Moderate disc narrowing L5/S1. Mild to moderate distal narrowing L1/L2. This patient has some abnormal marrow change at the inferior aspect of L2 and superior aspect of L3. There is some loss of vertebral body height at L3 with depression of superior endplate. Inferior endplate changes at L2 appear new. Inferior vertebral body irregularity of L3 is chronic. Regular inferior endplate at L2. Prominent appearance of the intervertebral disc at L2/L3 level without high disc signal. L1/L2: Mild broad-based bulge. No significant central canal stenosis. There is a mild to moderate bilateral neuroforaminal narrowing which is contributed to by facet disease. L2/L3: Mild broad-based bulge. Facet disease and ligamentum flavum disease. No significant central canal stenosis. Mild to moderate bilateral foraminal narrowing. L3/L4: Mild to moderate broad-based bulge with foraminal compartments left greater than right. Ligamentum flavum and facet degenerative change. Mild central canal stenosis. [id number] bilateral foraminal narrowing. L4/L5: Slight uncovering of the posterior intervertebral disc with mild broad-based bulge with ligamentum flavum and facet degenerative change. Mild to moderate central canal stenosis is present. Slight left-sided foraminal narrowing. L5/S1: Mild broad-based bulge. Central canal is probably intact. Neuroforamina are intact. No pathologic retroperitoneal process is appreciated. MRI/Spine Lumbar (Routine) IMPRESSION: Abnormal signal surrounding the L2/L3 intervertebral disc with some surrounding bone marrow edema and endplate depression. Adjacent to the endplates at L2 and L3 and there is some linear low signal best seen on T1. Findings could reflect subchondral fractures, age-indeterminate. Sequela of discitis is felt to be less likely. Degenerative change involving the lumbar spine otherwise. Electronically Signed: Prasanna Lawson MD at 0:00 EDT ,
== END | disposition home or self-care (01) ==
LOC: MRI 09:01
PROVIDERS: PCP Family Medicine Geriatric Medicine; Referring Provider Family Medicine Geriatric Medicine; Visit Provider Family Medicine Geriatric Medicine
DX: M51.9 Unspecified thoracic, thoracolumbar and lumbosacral intervertebral disc disorder (principal)
CPT/HCPCS: 72148

== ENCOUNTER → 2023-12-24 | Outpatient (CLI) | payer MEDICARE, SELFPAY ==
[2020-12-05 14:34] VITALS: BMI 31.7
--- OUTSIDE RECORDS SUMMARY | 2023-12-24 09:59 | XMS RPT_ITS | CCD ---
Author Name Unknown Address [id number] [place] [address] Organization [facility] Care Team Providers Care Bushing And Broach Operator Name Role Phone HORN, VICENTE DPM Unavailable Unavailable HORN, VICENTE DPM Unavailable Unavailable HORN, VICENTE DPM Unavailable Unavailable TISHA, TULIO A Unavailable Unavailable PROVIDER, UNKNOWN Unavailable Unavailable HORN, VICENTE DPM Unavailable Unavailable HORN, VICENTE DPM Unavailable Unavailable HORN, VICENTE DPM Unavailable Unavailable TISHA, TULIO A Unavailable Unavailable PROVIDER, UNKNOWN Unavailable Unavailable HORN, VICENTE DPM Unavailable Unavailable HORN, VICENTE DPM Unavailable Unavailable HORN, VICENTE DPM Unavailable Unavailable TISHA, TULIO A Unavailable Unavailable PROVIDER, UNKNOWN Unavailable Unavailable HORN, VICENTE DPM Unavailable Unavailable HORN, VICENTE DPM Unavailable Unavailable HORN, VICENTE DPM Unavailable Unavailable TISHA, TULIO A Unavailable Unavailable PROVIDER, UNKNOWN Unavailable Unavailable Mynor SHEA, Taylor Doe Unavailable Reji Chauhani Unavailable Unavailable Chauhan, Lala Unavailable Unavailable Magda, Beverly S Unavailable Mando Reid MD Unavailable Kaden, Eugene Chi Primary Care Provider Mando Murphy Unavailable Amor Verde MD Unavailable Magda, Beverly S Unavailable Mando Reid MD Unavailable Kaden, Eugene Chi Primary Care Provider Mando Murphy Unavailable Amor Verde MD Unavailable Magda, Beverly S Unavailable Kaden, Eugene Chi Primary Care Provider Magda, Beverly S Unavailable Mando Reid MD Unavailable Kaden, Eugene Chi Primary Care Provider Mando Murphy Unavailable Eliceo Escobar MD, Amor Unavailable Vicente Mojica Attending Unavailable Nayla, Dr. Dimple Loya Primary Care Unavailab le Nayla, Dr. Dimple Loay Referring Unavailab le Nayla, Dr. Dimple Loya Primary Care Unavailab le Vicente Mojica Attending Unavailable Vicente Mojica Attending Unavailable Nayla, Dr. Dimple Loya Primary Care Unavailab le Magda, Beverly S Unavailable Jose Stewart MD Primary Care Provider Magda, Beverly S Unavailable Mando Reid MD Unavailable Eliceo Escobar MD, Amor Unavailable Magda JACINTO, Beverly S Unavailable Kaden, Eugene Chi Primary Care Provider [phone] HANEY FORTE, AMOR Referring Unavailab le JOSE STEWART Primary Care Unavailab le HANEY FORTE, AMOR Referring Unavailab le BURSJOSE MCCONNELL Primary Care Unavailab le HANEY FORTE, AMOR Referring Unavailab le JOSE STEWART Primary Care Unavailab le JOSE STEWART Attending Unavailab JOSE Nava Primary Care Unavailab le JOSE STEWART Referring Unavailab le BURSJOSE MCCONNELL Primary Care Unavailab le BURSJOSE MCCONNELL Primary Care Unavailab le JOSE STEWART Referring Unavailab le KADEN, EUGENE CHI Primary Care Unavailable HANEY FORTE, AMOR Referring Unavailab le KADEN, EUGENE CHI Primary Care Unavailable HANEY FORTE, AMOR Referring Unavailab le KADEN, EUGENE CHI Primary Care Unavailable HANEY FORTEAMOR Referring Unavailab le KADEN, EUGENE CHI Primary Care Unavailable HANEY FORTE, AMOR Referring Unavailab le KADEN, EUGENE CHI Primary Care Unavailable MARLENACHARY Attending Unavailable HANEY FORTE, AMOR Referring Unavailab le KADEN, EUGENE CHI Primary Care Unavailable HANEY FORTE, AMOR Referring Unavailab le KADEN, EUGENE CHI Primary Care Unavailable HANEY OSIRISE, AMOR Attending Unavailab le KADEN, EUGENE CHI Primary Care Unavailable HANEY FORTE, AMOR Referring Unavailab le KADEN, EUGENE CHI Primary Care Unavailable PODLOGAR, ADRIANE Attending Unavailable JOSE STEWART Primary Care Unavailab le PODLOGAR, ADRIANE Referring Unavailable JOSE STEWART Primary Care Unavailab le PODLOGAR, ADRIANE Referring Unavailable AMOR VERDE Attending UnavailJOSE Vieyra Primary Care Unavailab le Medications Current Medications Medication Drug Class(es) Dates Sig (Normalized) Sig (Original) benoxinate hydrochloride 4 mg/ml / fluorescein sodium 2.5 mg/ml ophthalmic solution (1 source) Diagnostic Dye Start: 12-06-2022 End: 12-07-2022 fluorescein-benoxi adam 0.25-0.4 % 1 Drop (FLURESS) phenylephrine hydrochloride 25 mg/ml ophthalmic solution (1 source) alpha-1 Adrenergic Agonist Start: 12-06-2022 End: 12-07-2022 PHENYLephrine 2.5 % 1 Drop (AK-DILATE, SHREYA-SYNEPHRINE) proparacaine hydrochloride 5 mg/ml ophthalmic solution (1 source) Local Anesthetic Start: 12-06-2022 End: 12-07-2022 proparacaine 0.5 % 1 Drop (ALCAINE) tropicamide 10 mg/ml ophthalmic solution (1 source) Anticholinergic Start: 12-06-2022 End: 12-07-2022 tropicamide 1 % 1 Drop (MYDRIACYL) Completed/Discontinued Medications Medication Drug Class(es) Dates Sig (Normalized) Sig (Original) acetaminophen 325 mg oral tablet (20 sources) Start: 04-01-2022 End: 04-04-2022 acetaminophen 650 mg tab(s) (TYLENOL) Problems Active Problems Problem Classification Problem Date Documented Da te Episodic/Chronic Bacterial infection; unspecified site (1 source) Recurrent Clostridium difficile infection; Translations: [Other bacterial infections of unspecified site] Episodic Cancer of breast (3 sources) Malignant neoplasm of unspecified site of unspecified female breast; Translations: [Malignant neoplasm of unspecified site of unspecified female breast] Onset: 02-09-2008 12-02-2014 Chronic Cardiac dysrhythmias (20 sources) Paroxysmal atrial fibrillation; Translations: [Atrial fibrillation] Onset: 07-06-2011 Resolved: 10-28-2016 10-28-2016 Chronic Cataract (20 sources) Bilateral pseudophakia; Translations: [Presence of intraocular lens] Onset: 08-22-2015 08-31-2017 Chronic Coronary atherosclerosis and other heart disease (20 sources) Coronary atherosclerosis; Translations: [Atherosclerotic heart disease of [place] coronary artery without angina pectoris] Onset: 08-20-2021 08-21-2021 Chronic Diabetes mellitus without complication (2 sources) Prediabetes; Translations: [Hyperglycemia, unspecified] Onset: 06-01-2023 Episodic Disorders of lipid metabolism (20 sources) Hyperlipidemia; Translations: [Hyperlipidemia, unspecified] Onset: 08-28-2014 10-28-2016 Chronic Diverticulosis and diverticulitis (1 source) Diverticulitis; Translations: [Diverticulitis of intestine, part unspecified, without perforation or abscess without bleeding] Chronic Esophageal disorders (1 source) Gastro-esophageal reflux disease without esophagitis; Translations: [Gastroesophageal reflux disease, unspecified whether esophagitis present] Onset: 12-01-2023 Chronic Essential hypertension (20 sources) Hypertensive disorder; Translations: [Essential hypertension] Onset: 10-27-2016 10-28-2016 Chronic Heart valve disorders (20 sources) Non-rheumatic mitral regurgitation ; Translations: [Nonrheumatic mitral (valve) insufficiency] Onset: 03-14-2019 03-14-2019 Chronic Inflammation; infection of eye (except that caused by tuberculosis or sexually transmitteddisease) (20 sources) Bilateral punctate keratitis of eyes; Translations: [Punctate keratitis, bilateral] Onset: 08-31-2017 08-31-2017 Chronic Intestinal infection (1 source) Clostridium difficile colitis; Translations: [Enterocolitis due to Clostridium difficile, not specified as recurrent] Episodic Osteoporosis (1 source) Age-related osteoporosis without current pathological fracture; Translations: [Osteoporosis, unspecified] Onset: 12-01-2023 Chronic Other aftercare (20 sources) Long-term current use of anticoagulant; 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] 05-15-2019 Episodic Other and unspecified benign neoplasm (1 source) Benign neoplasm of colon, unspecified; Translations: [Benign neoplasm of colon, unspecified part of colon] Onset: 12-01-2023 Episodic Other diseases of bladder and urethra (1 source) Overactive bladder; Translations: [OAB (overactive bladder)] Onset: 12-01-2023 Chronic Other ear and sense organ disorders (1 source) Sensorineural hearing loss, bilateral; Translations: [Sensorineural hearing loss, bilateral] Chronic Other eye disorders (20 sources) Bilateral vitreous floaters; Translations: [Other vitreous opacities, bilateral] Onset: 08-26-2016 08-26-2016 Chronic Other lower respiratory disease (1 source) Interstitial lung disease; Translations: [Interstitial pulmonary disease, unspecified] 03-14-2023 Chronic Other lower respiratory disease (1 source) Pulmonary fibrosis, unspecified; Translations: [Pulmonary fibrosis (HCC)] Onset: 12-01-2023 Chronic Other lower respiratory disease (1 source) Interstitial pulmonary disease, unspecified; Translations: [Interstitial pulmonary disease (HCC)] Onset: 03-14-2023 Chronic Other lower respiratory disease (2 sources) Expiratory wheezing; Translations: [Wheezing] Episodic Other nutritional; endocrine; and metabolic disorders (3 sources) Body mass index (BMI) 35.0-35.9, adult; Translations: [Body mass index (BMI) 35.0-35.9, adult] Onset: 10-27-2016 10-28-2016 Chronic Other nutritional; endocrine; and metabolic disorders (20 sources) Obese class I; Translations: [Obesity, unspecified] Onset: 03-19-2019 03-19-2019 Chronic Other upper respiratory disease (1 source) Paralysis of vocal cords and larynx, bilateral; Translations: [Paralysis of vocal cords and larynx, bilateral] Onset: 03-31-2023 Chronic Other upper respiratory disease (1 source) Other diseases of vocal cords; Translations: [Other diseases of vocal cords] Onset: 03-31-2023 Episodic Other upper respiratory disease (1 source) Dysphonia; Translations: [Dysphonia] Onset: 03-31-2023 Episodic Peripheral and visceral atherosclerosis (1 source) Peripheral vascular disease, unspecified; Translations: [PAD (peripheral artery disease) (HCC)] Onset: 12-01-2023 Chronic Residual codes; unclassified (20 sources) Other specified personal risk factors, not elsewhere classified; Translations: [Other specified personal history presenting hazards to health] 03-19-2019 Episodic Residual codes; unclassified (20 sources) H/O cardiac surgery; Translations: [Other specified postprocedural states] 05-15-2019 Episodic Residual codes; unclassified (2 sources) Patient encounter status; Translations: [Encounter for prophylactic measures, unspecified] Episodic Residual codes; unclassified (1 source) Menopause present; Translations: [Asymptomatic menopausal state] 06-28-2023 Episodic Systemic lupus erythematosus and connective tissue disorders (20 sources) Granulomatosis with polyangiitis; Translations: [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ent] Onset: 07-22-2021 08-21-2021 Chronic Unclassified (3 sources) Long-term drug therapy; Translations: [Other long term care phlebotomist (current) drug therapy] Onset: 10-27-2016 10-28-2016 Past or Other Problems Problem Classification Problem Date Documented Da te Episodic/Chronic Abdominal hernia (20 sources) Diaphragmatic hernia; Translations: [Diaphragmatic hernia without obstruction or gangrene] Onset: 6 08-30-2006 Episodic Cancer of breast (20 sources) History of malignant neoplasm of breast; Translations: [Personal history of malignant neoplasm of breast] Onset: 7 01-24-2017 Episodic Cardiac dysrhythmias (20 sources) Palpitations; Translations: [Palpitations] Onset: 9 05-15-2019 Episodic Malaise and fatigue (3 sources) Fatigue; Translations: [Other fatigue] Onset: 6 10-27-2016 Episodic Nonspecific chest pain (12 sources) Chest pain, unspecified; Translations: [Chest discomfort] Onset: 1 Resolved: 6 07-06-2011 Episodic Other and unspecified benign neoplasm (20 sources) History of polyp of colon; Translations: [Personal history of colonic polyps] Onset: 8 07-24-2018 Episodic Other eye disorders (20 sources) Tear film insufficiency; Translations: [Dry eye syndrome of bilateral lacrimal glands] Onset: 6 09-01-2018 Episodic Other gastrointestinal disorders (20 sources) History of bariatric surgical procedure; Translations: [Bariatric surgery status] Onset: 1 08-20-2021 Episodic Other lower respiratory disease (20 sources) Dyspnea; Translations: [Shortness of breath] Onset: 6 10-28-2016 Episodic Other lower respiratory disease (1 source) Wheezing; Translations: [Wheezing on expiration] Onset: 3 Episodic Other screening for suspected conditions (not mental disorders or infectious disease) (10 sources) Electrocardiogram abnormal; Translations: [Patient encounter status] Onset: 1 Resolved: 6 07-06-2011 Episodic Residual codes; unclassified (20 sources) Family history of cancer of colon; Translations: [Family history of malignant neoplasm of digestive organs] Onset: 8 12-05-2014 Episodic Residual codes; unclassified (3 sources) Family history of malignant neoplasm of breast; Translations: [Family history of malignant neoplasm of breast] 12-05-2014 Episodic Residual codes; unclassified (3 sources) FH: Diabetes mellitus; Translations: [Family history of diabetes mellitus] 12-05-2014 Episodic Residual codes; unclassified (1 source) Asymptomatic menopausal state; Translations: [Asymptomatic menopause] Onset: 3 Episodic Results Test Name Value Interpretation Reference Range Facil ity Vital Signs Date Time Vital Sign Value Performing Clinician Facility 03-08-2023 13:04-0400 Body height 161 cm Pulm Wstr Work Phone: [facility] 03-08-2023 13:04-0400 Body weight 75.75 kg Pulm Wstr Work Phone: [facility] 03-08-2023 13:04-0400 Heart rate 74 /min Pulm Wstr Work Phone: [facility] 03-08-2023 13:04-0400 Respiratory rate 14 /min Pulm Wstr Work Phone: [facility] 03-08-2023 13:04-0400 SaO2% (BldA) [Mass fraction] 95 % Pulm Wstr Work Phone: [facility] 10-13-2022 08:51-0500 Body temperature 96.91 [degF] Treatment Wstr Work Phone: [facility] 10-13-2022 08:51-0500 Diastolic blood pressure 57 mm[Hg] Treatment Wstr Work Phone: [facility] 10-13-2022 08:51-0500 Heart rate 70 /min Treatment Wstr Work Phone: [facility] 10-13-2022 08:51-0500 Systolic blood pressure 87 mm[Hg] Treatment Wstr Work Phone: [facility] 04-01-2022 12:05-0400 Diastolic blood pressure 50 mm[Hg] Nurse Main Work Phone: [facility] 04-01-2022 12:05-0400 Heart rate 98 /min Nurse Main Work Phone: [facility] 04-01-2022 12:05-0400 Respiratory rate 18 /min Nurse Main Work Phone: [facility] 04-01-2022 12:05-0400 Systolic blood pressure 108 mm[Hg] Nurse Main Work Phone: [facility] 04-01-2022 11:45-0400 SaO2% (BldA) [Mass fraction] 99 % Nurse Main Work Phone: [facility] 04-01-2022 11:14-0400 Body height 157.5 cm Amor Escobar MD Work Phone: [facility] 04-01-2022 11:14-0400 Body temperature 96.69 [degF] Amor Escobar MD Work Phone: [facility] 04-01-2022 11:14-0400 Body weight 76.2 kg Amor Escobar MD Work Phone: [facility] 04-01-2022 11:14-0400 Diastolic blood pressure 66 mm[Hg] Amor Escobar MD Work Phone: [facility] 04-01-2022 11:14-0400 Heart rate 66 /min Amor Escobar MD Work Phone: [facility] 04-01-2022 11:14-0400 Systolic blood pressure 119 mm[Hg] Amor Escobar MD Work Phone: [facility] 02-25-2022 09:49-0400 Body height 157.5 cm Zenia Josh PA-C Work Phone: [facility] 02-25-2022 09:49-0400 Diastolic blood pressure 70 mm[Hg] Zenia Josh PA-C Work Phone: [facility] 02-25-2022 09:49-0400 Heart rate 79 /min Zenia Josh PA-C Work Phone: [facility] 02-25-2022 09:49-0400 Systolic blood pressure 118 mm[Hg] Zenia Josh PA-C Work Phone: [facility] 02-03-2022 12:15-0400 Body height 157.5 cm Amor Escobar MD Work Phone: [facility] 02-03-2022 12:15-0400 Body temperature 97.3 [degF] Amor Escobar MD Work Phone: [facility] 02-03-2022 12:15-0400 Body weight 76.2 kg Amor Escobar MD Work Phone: [facility] 02-03-2022 12:15-0400 Diastolic blood pressure 67 mm[Hg] Amor Escobar MD Work Phone: [facility] 02-03-2022 12:15-0400 Heart rate 82 /min Amor Escobar MD Work Phone: [facility] 02-03-2022 12:15-0400 Systolic blood pressure 116 mm[Hg] Amro Escobar MD Work Phone: [facility] 05-30-2017 10:30-0400 BMI (Body Mass Index) 35.13 kg/m2 [facility] Work Phone: 05-30-2017 10:30-0400 BP Diastolic 60 mm[Hg] [facility] Work Phone: 05-30-2017 10:30-0400 BP Systolic 110 mm[Hg] Lla[facility] Work Phone: 05-30-2017 10:30-0400 Height 163.83 cm [facility] Work Phone: 05-30-2017 10:30-0400 Pulse (Heart Rate) 64 /min [facility] Work Phone: 05-30-2017 10:30-0400 Respiratory Rate 20 /min [facility] Work Phone: 05-30-2017 10:30-0400 Weight 94.3 kg [facility] Work Phone: 11-30-2016 11:17-0500 BMI (Body Mass Index) 35.49 kg/m2 [facility] Work Phone: 11-30-2016 11:17-0500 BP Diastolic 60 mm[Hg] Taylor Lowe RN [facility] Work Phone: 11-30-2016 11:17-0500 BP Systolic 100 mm[Hg] Taylor Lowe [facility] Work Phone: 11-30-2016 11:17-0500 BSA (Body Surface Area) 2.01 m2 Taylor Lowe RN [facility] Work Phone: 11-30-2016 11:17-0500 Pulse (Heart Rate) 76 /min [facility] Work Phone: 11-30-2016 11:17-0500 Respiratory Rate 20 /min [facility] Work Phone: 11-30-2016 11:17-0500 Weight 95.26 kg [facility] Work Phone: 10-27-2016 16:01-0500 Heart rate 74 /min [facility] Work Phone: 10-27-2016 15:00-0500 Height 163.83 cm [facility] Work Phone: 05-01-2015 10:10-0400 Body Temperature 97.6 [degF] [facility] Work Phone: Encounters Encounter Date Encounter Type Care Provider Facility Start: 12-01-2023 End: 12-02-2023 ambulatory GUANACO Manuela STEWART Facility:[facility] Start: 12-01-2023 End: 12-02-2023 ambulatory [facility] Facility:[facility] Start: 11-22-2023 End: 11-23-2023 ambulatory [facility] Facility:[facility] Start: 09-14-2023 End: 09-14-2023 ambulatory [facility] Facility:[facility] Start: 08-31-2023 End: 09-01-2023 ambulatory [facility] Facility:[facility] Start: 07-04-2023 Telephone encounter Adriane jeronimo APRN.CNP Work Phone: [facility] Procedures Date Procedure Procedure Detail Performing Clinician Start: 06-28-2023 Dxa bone density study 1/> sites axial skel Adriane Suarez APRN.CNP Work Phone: Start: 06-01-2023 Lipid 1996 panel - Serum or Plasma Ct (I-Stat) Work Phone: Start: 03-14-2023 Ct thorax w/o contrast material Amor Escobar MD Work Phone: Start: 03-08-2023 Spmtry w/vc expiratory bettie w/wo mxml vol vntj Amor Escobar MD Work Phone: Start: 03-02-2023 Mammography Adriane Podlogar BLOWER INSTALLER.HARD HAT DIVER Work Phone: Start: 04-01-2022 Urnls dip stick/tablet rgnt auto w/o microscopy Amor Escobar MD Work Phone: Start: 03-30-2022 Adult depression screening assessment Amor Escobar MD Work Phone: Start: 09-05-2021 Adult depression screening assessment Amor Escobar MD Work Phone: Start: 08-20-2021 History of appendectomy History of appendectomy Amor Escobar MD Work Phone: Start: 08-20-2021 History of cataract extraction History of cataract extraction Amor Escobar MD Work Phone: Start: 08-20-2021 History of tonsillectomy History of tonsillectomy Amor Escobar MD Work Phone: Start: 05-15-2019 Antibody screen Plan of Treatment Date Care Activity Detail Author Start: 06-01-2028 Lipid 1996 panel - Serum or Plasma Lipid Screening [facility] Start: 06-01-2028 LIPID SCREEN LIPID SCREEN [facility] Start: 08-31-2026 Diabetes Screening Diabetes Screening [facility] Start: 06-01-2026 DIABETES SCREEN DIABETES SCREEN [facility] Start: 03-08-2026 DIABETES SCREEN DIABETES SCREEN [facility] Start: 07-21-2025 DIABETES SCREEN DIABETES SCREEN [facility] Start: 05-20-2025 DIABETES SCREEN DIABETES SCREEN [facility] Start: 04-01-2025 DIABETES SCREEN DIABETES SCREEN [facility] Start: 02-03-2025 DIABETES SCREEN DIABETES SCREEN [facility] Start: 11-16-2024 DIABETES SCREEN DIABETES SCREEN [facility] Start: 08-31-2024 BP Controlled (<130/80) BP Controlled (<130/80) [facility] Start: 06-01-2024 Hepatitis B surface antibody level LDL CHOLESTEROL [facility] Start: 05-31-2024 ANNUAL PCP TEAM CHRONIC DISEASE VISIT ANNUAL PCP TEAM CHRONIC DISEASE VISIT [facility] Start: 05-31-2024 BP CONTROLLED (<130/80) BP CONTROLLED (<130/80) [facility] Start: 03-02-2024 Mammography MAMMOGRAM [facility] Start: 10-09-2023 Colonoscopy COLONOSCOPY [facility] Start: 10-09-2023 COLORECTAL CANCER SCREENING COLORECTAL CANCER SCREENING [facility] Start: 07-08-2023 Covid-19 Vaccine ( season) Covid-19 Vaccine () [facility] Start: 07-08-2023 Influenza vaccination [facility] Start: 04-01-2023 BP CONTROLLED (<130/80) BP CONTROLLED (<130/80) [facility] Start: 03-30-2023 Adult depression screening assessment DEPRESSION SCREENING [facility] Start: 02-25-2023 BP CONTROLLED (<130/80) BP CONTROLLED (<130/80) [facility] Start: 02-03-2023 BP CONTROLLED (<130/80) BP CONTROLLED (<130/80) [facility] Start: 11-07-2022 ADVANCE DIRECTIVE DISCUSSION ADVANCE DIRECTIVE DISCUSSION [facility] Start: 11-07-2022 DEPRESSION ASSESSMENT DEPRESSION ASSESSMENT [facility] Start: 10-28-2022 COVID-19 VACCINE (6 - Moderna risk series) COVID-19 VACCINE (6 - Moderna risk series) [facility] Start: 10-13-2022 End: 12-13-2022 Chronic hepatitis differentiation between hepatitis B and C virus panel - Serum or Plasma [facility] Work Phone: Immunizations Immunization Date Immunization Notes Care Provider Car[facility] 09-02-2022 COVID-19 vaccine, ag e 12+ yr, bivalent (MODERNA) Adriane Podlogdandre BLOWER INSTALLER.HARD HAT DIVER Work Phone: [facility] Work Phone: 08-19-2021 influenza, high-dose , quadrivalent vaccine (FLUZONE HIGH DOSE QUADRIVALENT) Amor Escobar MD Work Phone: [facility] 08-19-2021 influenza virus vacc ine, unspecified formulation Ct (I-Stat) Work Phone: [facility] 07-02-2021 COVID-19 vaccine, fu ll dose (MODERNA) Mando Ware MD Work Phone: [facility] 01-29-2021 COVID-19 vaccine, fu ll dose (MODERNA) Amor Escobar MD Work Phone: [facility] 01-01-2021 COVID-19 vaccine, fu ll dose (MODERNA) Amor Escobar MD Work Phone: [facility] 08-29-2020 influenza, high-dose , quadrivalent vaccine (FLUZONE HIGH DOSE QUADRIVALENT) Amor Escobar MD Work Phone: [facility] 08-28-2019 influenza, high dose seasonal, preservative-free Amor Escobar MD Work Phone: [facility] 12-14-2018 pneumococcal polysaccharide vaccine, 23 valent Amor Escobar MD Work Phone: [facility] Work Phone: 08-03-2018 influenza, high dose seasonal, preservative-free Amor Escobar MD Work Phone: [facility] Work Phone: 12-08-2017 pneumococcal conjuga te vaccine, 13 valent Amor Escobar MD Work Phone: [facility] Work Phone: 10-13-2017 influenza, high dose seasonal, preservative-free Amor Escobar MD Work Phone: [facility] Work Phone: 06-02-2016 varicella zoster imm une globulin Amor Escobar MD Work Phone: [facility] Work Phone: 06-02-2016 varicella zoster imm une globulin; Translations: [ZOSTER VACCINE LIVE] Taylor Lowe RN [facility] Work Phone: Payers Date Payer Category Payer Medicare MEDICARE MEDICAR E A AND B [id number] 2013-Present [phone] [place] [id number] Medicare [id number] 2013 Medicare MEDICARE MEDICAR E A AND B [id number] 2013-Present [phone] [place] [address] Medicare [id number] 2013 Medicare [id number] 1950 Unknown [id number] 1950 Unknown [id number] 1950 Unknown [id number] Medicare [id number] Social History Date Type Detail Facility Start: 08-28-2014 End: 03-07-2023 Tobacco smoking status MAIS Never smoked tobacco [facility] Start: 09-11-2021 End: 05-31-2023 Alcohol intake Current non-drinker of alcohol (finding) [facility] Start: 1950 Sex Assigned At Female C [facility] Start: 12-12-2021 End: 03-31-2022 Exposure to SARS-CoV-2 (event) Unable to assess [facility] Start: 01-24-2022 End: 05-20-2022 Exposure to SARS-CoV-2 (event) Not sure [facility] Start: 08-28-2014 End: 03-07-2023 Tobacco use and exposure Smokeless tobacco non-user [facility] Work Phone: Start: 03-10-2023 End: 05-31-2023 History of Social function [facility] Start: 03-10-2023 End: 05-31-2023 Tobacco use panel [facility] Adult Depression Screening Assessment 2 [facility] Start: 01-25-2021 Gender identity Identifies as female gender (finding) [facility] Start: 01-25-2021 Sexual orientation Heterosexual (magaly damian) [facility] Clinical Notes 03-14-2019 to 12-01-2023 Telephone Encounter - Taylor PryorMYKEL - 07/04/2023 4:06 PM EDTTelephone Encounter - Taylor PryorMYKEL - 07/04/2023 2:04 PM KURTISTCsharonda Shaka A, RT(R) - 06/28/2023 10:00 AM EDT Note Date & Type Note Facility 12-01-2023 Note HNO ID: [id number] Author: JOSE STEWART MD Service: ? Author Type: Physician Type: Progress Notes Filed: 12/07/2023 10:54 Note Text: Chief Complaint Patient presents with: Follow Up: 6 month HPI Karen Falk is a 73 year old female who presents here today for Above Complaints. Accompanied today by her Derrell. Patient complaining today of urinary incontinence which started more than 6 months ago to the point where she has to wear adult diapers. Described as feeling sudden urge to urinate and cannot hold it long enough to get to the restroom. Denies dysuria, hematuria, frequency, fever/chills, abdominal pain, nausea, vomiting, flank pain. Also complaining of pain in her lower legs from her ankles to the knees when touched. Going on for years. Notes that she has poor circulation in her legs with cold feet without dusky extremities. BP in good range today on metoprolol. Does not check BP at home. Denies HTN symptoms of headache, vision changes, chest pain, worsening SOB, leg swelling. Has history of pulmonary fibrosis managed by Dr. Rae at [facility] on a yearly basis. Uses oxygen at night. Not on any inhalers at this time. Symptoms stable in the last year. Has f/u next month. CAD/History of a fib s/p ablation: Managed by [facility] cardiology. Has follow up appointment with their office every 6 months with next OV in August. No changes to regimen at last OV. Asymptomatic. Denies palpitations or tachycardia since her ablation. Getting Rituxan infusions every [address] Eliceo Escobar's office for her Tami's. Reviewed recent labs. Has f/u in January. Past medical history, appointments, medications, allergies reviewed. Previous Medical History PAST MEDICAL HISTORY Diagnosis Date Acute gastritis without mention of hemorrhage Anticoagulant long-term use apixaban (Eliquis); indication: stroke prevention AF Arrhythmia At risk for stroke [id number] = 4 (HTN, age, CAD, female gender) Benign neoplasm of colon Breast cancer, stage 4 (HCC) 2007 right breast - chemo and radiation Coronary artery disease involving [place] coronary artery of [place] heart without angina pectoris Diaphragmatic hernia without mention of obstruction or gangrene Diverticulosis of colon (without mention of hemorrhage) Esophageal reflux Essential hypertension Family history of malignant neoplasm of gastrointestinal tract Fatigue Granulomatosis with polyangiitis (HCC) 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) 07/22/2021 HLD (hyperlipidemia) Hypercholesteremia Lipodermatosclerosis of both lower extremities Nonrheumatic mitral (valve) insufficiency Nonrheumatic tricuspid (valve) insufficiency Obesity OXANA (obstructive sleep apnea) Osteoporosis, unspecified Other and unspecified hyperlipidemia Palpitations Paroxysmal atrial fibrillation (HCC) Persistent atrial fibrillation (HCC) initially paroxysmal but became persistent over time; s/p AF catheter ablation 05/15/2019 Personal history of colonic polyps Pulmonary fibrosis (HCC) SOB (shortness of breath) Status post catheter ablation of atrial fibrillation balloon catheter cryoablation atrial fibrillation PVAI 05/15/2019 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 Reid APPENDECTOMY CARDIAC CATH Left 05/15/2008 preserved LV systolic fxn; no significant CAD CARDIAC STRESS TEST 12/13/2016 reportedly no ischemia; AF noted; preserved LVEF COLONOSCOPY FLX DX W/COLLJ SPEC WHEN PFRMD 12/29/2004 Colonoscopy COLONOSCOPY FLX DX W/COLLJ SPEC WHEN PFRMD 12/02/2009 COLONOSCOPY FLX DX W/COLLJ SPEC WHEN PFRMD 09/11/2015 Colonoscopy COLONOSCOPY FLX DX W/COLLJ SPEC WHEN PFRMD 10/09/2018 repeat 5 years ECHOCARDIOGRAM 03/23/2018 LVEF 60%; stage I diastolic dysfxn; mild MR, mild TR ECHOCARDIOGRAM 03/23/2019 normal LV systolic fxn; LVEF 60%; normal LA size; mild MR, TR ECHOCARDIOGRAM 08/08/2019 normal LV systolic fxn; LVEF 55%; normal LA size; 1-2+ MR; 1+ TR EGD TRANSORAL BIOPSY SINGLE/MULTIPLE 08/30/2006 HOLTER MONITOR 01/17/2019 nearly 100% AF; average HR 81 bpm HOLTER MONITOR 24 HRS 08/08/2019 sinus rhythm; PVCs; rare PACs; no AF INSERT INTRACORONARY STENT 11/25/2020 PCI stent to mid LAD; PTCA to D1; [facility] LAP ADJUSTABLE GASTRIC BAND lapband 2006 released when diagnosed with breast cancer LIG/TRNSXJ FLP TUBE ABDL/VAG APPR UNI/BI Tubal ligation LUMPECTOMY/RADIOTHERAPY DIAG MAMM/A10 02/2008 right breast lumpectomy TONSILLECTOMY HX TONSILLECTOMY PRIMARY/SECONDARY Tonsillectomy XCAPSL CTRC RMVL INSJ IO LENS PROSTH W/O ECP 07/23/2011 Cataract Extraction with PC IOL (Restor) left eye XCAPSL CTRC RMVL INSJ IO LENS PROSTH W/O ECP 08/04/2011 C (more content not included)... [facility] 08-31-2023 Note HNO ID: [id number] Author: Amor Verde MD Service: ? Author Type: Physician Type: Progress Notes Filed: 10/02/2023 11:27 PM Note Text: Karen Falk is a 73 year old female here for follow-up of M31.30 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) (primary encounter diagnosis) Evaluation Date: 08/31/2023 Last Visit in Rheumatology: 03/07/2023 (with Amor Escobar) ACTIVE PROBLEM LIST Coronary Artery Disease Involving [place] Coronary Artery of [place] Heart Without Angina Pectoris - 08/20/2021 History of Appendectomy - 08/20/2021 History of Bariatric Surgery - 08/20/2021 History of Cataract Extraction - 08/20/2021 History of Tonsillectomy - 08/20/2021 Granulomatosis With Polyangiitis (Hcc) - 07/22/2021 Status Post Catheter Ablation of Atrial Fibrillation Comment: balloon catheter cryoablation atrial fibrillation PVAI 05/15/2019 Obesity, Class I, Bmi 30-34.9 - 03/19/2019 At Risk for Stroke Comment: [id number] = 3 (HTN, age, female gender) Anticoagulant Long-Term Use Comment: apixaban (Eliquis); indication: stroke prevention AF Palpitations - 03/14/2019 Nonrheumatic Mitral (Valve) Insufficiency - 03/14/2019 Nonrheumatic Tricuspid (Valve) Insufficiency - 03/14/2019 History of Colonic Polyps - 07/24/2018 Comment: Added automatically from request for surgery [id number] Family History of Colon Cancer in Father - 07/24/2018 Comment: Added automatically from request for surgery [id number] Punctate Keratitis, Bilateral - 08/31/2017 Personal History of Breast Cancer - 01/24/2017 Shortness of Breath - 10/27/2016 Essential Hypertension - 10/27/2016 Vitreous Floaters of Both Eyes - 08/26/2016 Dry Eye Syndrome of Both Eyes - 08/26/2016 Pseudophakia of Both Eyes - 08/22/2015 Hyperlipidemia - 08/28/2014 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 - 08/30/2006 INTERVAL HX: At today's visit Karen Falk states that she has been feeling about the same No increase in symptoms No SOB at rest, but with minimal exertion No cough or chest pain Since last visit she has new hearing aid and it resolved her hearing loss (left side) End of March 2023 - woke up during one night with pain in the back, went to the ER and was found to have 2 compression fracture. She received injection to the spine for the pain and she had temporary relief of the pain. She is now following with ortho and waiting for results of MRI She has not been on Bactrim for PJP prophylaxis because of a difficult to treat and prolonged case of CDiff and still having diarrhea, but not positive for CDiff Review of Systems CONSTITUTION: HEENT: Negative for: Nosebleeds, Mouth sores, Trouble swallowing and Dry mouth RESPIRATORY: Positive for: Shortness of breath Negative for: Cough and Pain with breathing GASTROINTESTINAL: Positive for: Diarrhea Negative for: Melena, Heartburn and Abdominal pain MUSCULOSKELETAL: Positive for: Muscle weakness Negative for: Arthralgias, Myalgias, Joint swelling and Morning Joint Stiffness NEUROLOGICAL: Positive for: Memory loss Negative for: Headaches and Numbness SKIN: Negative for: Rash, Skin changes, Hair loss and Nail changes EYES: Positive for: Eye dryness Negative for: Eye pain, Eye redness and visual disturbance CARDIOVASCULAR: Positive for: Leg swelling Negative for: Chest pain GENITOURINARY: Negative for: Dysuria and Hematuria HEMATOLOGIC/LYMPHATIC: Negative for: Swollen glands REVIEW OF FAMILY AND/OR SOCIAL HISTORY: The family and/or social were reviewed at todays visit and no changes were noted. Date of last DEXA: 06/30/2023 ([facility]) Current Outpatient Medications Medication Sig budesonide, enteric coated (ENTOCORT EC) 3 mg 24 hr capsule TAKE 3 CAPSULES BY MOUTH IN THE MORNING FOR MICROSCOPIC COLITIS propylene glycoL (SYSTANE COMPLETE) 0.6 % drop Use 1 Drop in both eyes three times daily. Artificial Tear, Hypromellose, (GENTEAL TEARS SEVERE GEL) 0.3 % gel Use 1 Drop in both eyes daily at bedtime. potassium chloride (K-TAB) 10 mEq tablet Take 10 mEq by mouth twice daily. aspirin, enteric coated (ASPIRIN, ENTERIC COATED) 81 mg EC tablet Take 81 mg by mouth once daily. Cholecalciferol, Vitamin D3, 50 mcg (2,000 unit) cap Take by mouth. metoprolol tartrate, short acting, (LOPRESSOR) 25 mg tablet Take 12.5 mg by mouth twice daily. atorvastatin calcium(LIPITOR 10 MG TAB) Take one(1) tablet daily. acetaminophen(TYLENOL 325 MG TAB) Take two(2) tablets every four(4) to six(6) hours as needed for pain. OXYGEN, HOME THERAPY, Inhale 2 L/min as instructed as directed. No current facility-administered medications for this visit. PHYSICAL EXAMINATION Blood pressure 116/59, pulse 79, temperature 36.1 ?C (97 ?F), temperature source Temporal, weight 81.6 kg (180 lb). GENERAL APPEARANCE: well SKIN: normal without rashes or lesions EYES: conjunctiva clear, PERRL, EOM normal EARS: Externa (more content not included)... [facility] 07-04-2023 Miscellaneous Notes ----- Message from Adriane Suarez APRN.CNP sent at 07/04/2023 3:35 PM EDT ----- If she would like we can restart this for an additional five years. Continue over the counter vitamin D 2000 units and calcium 1200 mg daily and weight bearing exercises. Adriane Suarez APRN.CNP Patient notified of results. She is unsure of when she quit taking it but she said it was a long time ago. Taylor Pryor LPN ----- Message from Adriane Suarez APRN.HARD HAT DIVER sent at 07/04/2023 1:22 PM EDT ----- Bone density shows osteoporosis. Patient reported she had taken fosamax for five years and then stopped. Does she know how long it has been since she stopped it. Adriane Suarez APRN.HARD HAT DIVER documented in this encounter [facility] 06-28-2023 Note HNO ID: [id number] Author: Shaka Quiroga RT(R) Service: ? Author Type: Technologist Type: Progress Notes Filed: 06/28/2023 10:19 AM Note Text: Radiology Service Progress Note PATIENT NAME: Karen Falk DATE OF SERVICE: June 28, 2023 TIME: 10:06 AM PATIENT IDENTITY VERIFICATION COMPLETED USING TWO (2) IDENTIFIERS: Name and Date of confirmed by patient verbally. FALL SCREENING: Has the patient had 2 falls in the last year or 1 fall with injury or currently using an Ambulatory Assistive Device (Walker, Cane, Wheelchair, Crutches, etc.)? No PATIENT GENDER DATA: Female. status: : No status: NO. PATIENT RELEVANT IMPLANT DATA REVIEWED: Not Applicable RADIOLOGY DEPARTMENT: Bone Density PERIPHERAL IV DATA: Not applicable SIGNED BY: RT Ninoska(R) June 28, 2023 10:06 AM [facility] 06-28-2023 History of Present illness Narrative Radiology Service Progress Note PATIENT NAME: Karen Falk DATE OF SERVICE: June 28, 2023 TIME: 10:06 AM PATIENT IDENTITY VERIFICATION COMPLETED USING TWO (2) IDENTIFIERS: Name and Date of confirmed by patient verbally. FALL SCREENING: Has the patient had 2 falls in the last year or 1 fall with injury or currently using an Ambulatory Assistive Device (Walker, Cane, Wheelchair, Crutches, etc.)? No PATIENT GENDER DATA: Female. status: : No status: NO. PATIENT RELEVANT IMPLANT DATA REVIEWED: Not Applicable RADIOLOGY DEPARTMENT: Bone Density PERIPHERAL IV DATA: Not applicable SIGNED BY: RT Ninoska(R) June 28, 2023 10:06 AM documented in this encounter [facility] 06-03-2023 Miscellaneous Notes SendRRt message sent to pt notifying her of results below from Provider. Stacey Fong Ma ----- Message from Adriane Suarez APRN.HARD HAT DIVER sent at 06/03/2023 6:52 AM EDT ----- A1c in great range at 5.8%- down from 7% a year ago- great job. Cholesterol within acceptable ranges. Adriane Suarez APRN.HARD HAT DIVER documented in this encounter [facility] 05-31-2023 Note HNO ID: [id number] Author: Adriane Suarez APRN.HARD HAT DIVER Service: ? Author Type: Nurse Practitioner Type: Progress Notes Filed: 05/31/2023 11:58 AM Note Text: 05/31/2023 Patient presents with: Establish Care SUBJECTIVE: This is a 73 year old that is here today for Above Complaints. Previously seeing Dr. Alfonso in [place] but would like to change to [facility] to keep care in the same place Follows with [facility] cardiology for hx of PAF and CAD. Had ablation two years ago and has been fine since. No anticoagulation anymore. Reports hx of chronic SOB due she lost 40% of right lung due to radiation for breast cancer. Uses O2@ 2L/NC as needed. Denies increasing SOB from baseline, dyspnea, orthopnea, chest pain, palpitations or leg edema Follow with Dr. Mock at [facility] for colitis . Follow with rheumatology though [facility] for a hx of Tami . Sees her twice a year. Gets rituxan infusion twice a year Past medical surgical, family, social hx, medications, allergies and health maintenance reviewed and updated PAST MEDICAL HISTORY Diagnosis Date Acute gastritis without mention of hemorrhage Anticoagulant long-term use apixaban (Eliquis); indication: stroke prevention AF Arrhythmia At risk for stroke [id number] = 4 (HTN, age, CAD, female gender) Benign neoplasm of colon Breast cancer, stage 4 (HCC) 2007 right breast - chemo and radiation Coronary artery disease involving [place] coronary artery of [place] heart without angina pectoris Diaphragmatic hernia without mention of obstruction or gangrene Diverticulosis of colon (without mention of hemorrhage) Esophageal reflux Essential hypertension Family history of malignant neoplasm of gastrointestinal tract Fatigue Granulomatosis with polyangiitis (HCC) 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) 07/22/2021 HLD (hyperlipidemia) Hypercholesteremia Nonrheumatic mitral (valve) insufficiency Nonrheumatic tricuspid (valve) insufficiency Obesity OXANA (obstructive sleep apnea) Osteoporosis, unspecified Other and unspecified hyperlipidemia Palpitations Paroxysmal atrial fibrillation (HCC) Persistent atrial fibrillation (HCC) initially paroxysmal but became persistent over time; s/p AF catheter ablation 05/15/2019 Personal history of colonic polyps Pulmonary fibrosis (HCC) SOB (shortness of breath) Status post catheter ablation of atrial fibrillation balloon catheter cryoablation atrial fibrillation PVAI 05/15/2019 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 MEDICATIONS Current Outpatient Medications Medication Sig budesonide, enteric coated (ENTOCORT EC) 3 mg 24 hr capsule TAKE 3 CAPSULES BY MOUTH IN THE MORNING FOR MICROSCOPIC COLITIS propylene glycoL (SYSTANE COMPLETE) 0.6 % drop Use 1 Drop in both eyes three times daily. Artificial Tear, Hypromellose, (GENTEAL TEARS SEVERE GEL) 0.3 % gel Use 1 Drop in both eyes daily at bedtime. colestipol (COLESTID) 1 gram tablet Take 1 g by mouth twice daily. potassium chloride (K-TAB) 10 mEq tablet Take 10 mEq by mouth twice daily. ELIQUIS 5 mg tab(s) Take 5 mg by mouth twice daily. (Patient not taking: No sig reported) FLUoxetine (PROZAC) 40 mg capsule Take 40 mg by mouth once daily. aspirin, enteric coated (ASPIRIN, ENTERIC COATED) 81 mg EC tablet Take 81 mg by mouth once daily. albuterol HFA (PROVENTIL HFA, VENTOLIN HFA) 90 mcg/actuation inhaler INHALE 2 PUFFS 6 (SIX) TIMES DAILY NEEDED FOR SHORTNESS OF BREATH / COUGH Cholecalciferol, Vitamin D3, 50 mcg (2,000 unit) cap Take by mouth. metoprolol tartrate, short acting, (LOPRESSOR) 25 mg tablet Take 12.5 mg by mouth twice daily. propylene glycoL 0.6 % drop Use 1 Drop in both eyes four times daily. atorvastatin calcium(LIPITOR 10 MG TAB) Take one(1) tablet daily. acetaminophen(TYLENOL 325 MG TAB) Take two(2) tablets every four(4) to six(6) hours as needed for pain. No current facility-administered medications for this visit. Medications and allergies reviewed by this provider. SOCIAL HISTORY Social History Tobacco Use Smoking status: Never Smokeless tobacco: Never Vaping Use Vaping Use: Never used Substance Use Topics Alcohol use: No Drug use: No REVIEW OF SYSTEMS All other reviewed and negative other than HPI. OBJECTIVE: BP 134/82 Pulse 88 Resp 18 Ht 160.3 cm (5' 3.11 ) Wt 78.8 kg (173 lb 12.8 oz) SpO2 97% BMI 30.68 kg/m? . Vital signs reviewed by this provider. APPEARANCE Well appearing, alert, in no acute distress, well-hydrated, well nourished. EYES conjunctiva and sclera normal. HEART RRR with normal S1 and S2, no murmurs, no gallops, no JVD appreciated LUNG clear to auscultation. No wheezes, rhonchi or rale EXTREMITIES No edema. Slight bluish discoloration which patient reports is normal. 2+ pedal pulse. Legs warm to touch with cap refill WNL SKIN Skin color, texture, turgor normal, no (more content not included)... [facility] 03-14-2023 Note HNO ID: [id number] Author: RT Mrai(R) Service: ? Author Type: Cash Clerk Type: Progress Notes Filed: 03/14/2023 2:48 PM Note Text: Radiology Service Progress Note PATIENT NAME: Karen Falk DATE OF SERVICE: March 14, 2023 TIME: 2:48 PM PATIENT IDENTITY VERIFICATION COMPLETED USING TWO (2) IDENTIFIERS: Name and Date of confirmed by patient verbally. FALL SCREENING: Has the patient had 2 falls in the last year or 1 fall with injury or currently using an Ambulatory Assistive Device (Walker, Cane, Wheelchair, Crutches, etc.)? No PATIENT GENDER DATA: Female. status: : No status: NO. PATIENT RELEVANT IMPLANT DATA REVIEWED: Yes RADIOLOGY DEPARTMENT: CT; Exam(s) Completed: Chest PERIPHERAL IV DATA: Not applicable SIGNED BY: RT Sunil(R) March 14, 2023 2:48 PM [facility] 03-14-2023 History of Present illness Narrative Radiology Service Progress Note PATIENT NAME: Karen Falk DATE OF SERVICE: March 14, 2023 TIME: 2:48 PM PATIENT IDENTITY VERIFICATION COMPLETED USING TWO (2) IDENTIFIERS: Name and Date of confirmed by patient verbally. FALL SCREENING: Has the patient had 2 falls in the last year or 1 fall with injury or currently using an Ambulatory Assistive Device (Walker, Cane, Wheelchair, Crutches, etc.)? No PATIENT GENDER DATA: Female. status: : No status: NO. PATIENT RELEVANT IMPLANT DATA REVIEWED: Yes RADIOLOGY DEPARTMENT: CT; Exam(s) Completed: Chest PERIPHERAL IV DATA: Not applicable SIGNED BY: RT Sunil(R) March 14, 2023 2:48 PM documented in this encounter [facility] 03-10-2023 Note HNO ID: [id number] Author: HAYLEY Garcia Service: ? Author Type: Host/Hostess Restaurant Type: Progress Notes Filed: 03/10/2023 7:19 PM Note Text: [facility] [place] AUDIOLOGIC EVALUATION REPORT Name: Karen Falk [facility]#: [id number] Date of Service: 03/10/2023 Date of : 1950 Age: [age] year old Referred by: Amor Escobar MD Referred for: Evaluation of suspected change in hearing, tinnitus, or balance. Referral documented: In an order in [facility] Patient's major concerns: Reduced hearing in both ears Recall, Karen Falk was seen by Amor Escobar MD (Rheumatology) on 03/07/2023 reporting fluctuating hearing loss; an audiological evaluation was recommended at that time. Medical history is significant for granulomatosis with 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 rental involvement. At today's appointment, Karen reported intermittent left ear fluctuating hearing onset 2 years ago. Karen notices particular hearing difficulties with listening to television (utilizes closed captions) and clarification of speech. The right ear is perceived as a the better hearing ear.Additional otologic symptoms were denied including tinnitus, otalgia (0/10), otorrhea, aural fullness/pressure, vertigo/dizziness, and imbalance. Karen denied the following otologic risk factors: recent head trauma, prior otologic surgery, or loud noise exposure. Family history of hearing loss is non-contributory . See SmartForm Audiogram for additional reported history and symptoms. Risk of Falls Documentation for over 65 years old: No history of falls reported so minimal to no risk - currently ambulates with a wheel chair IMPRESSIONS RIGHT EAR: Sensorineural hearing loss LEFT EAR: Sensorineural hearing loss AUDIOLOGIC EVALUATION Following is a brief interpretation of the obtained findings from the audiologic evaluation. Refer to the Auditory Test Record for complete audiometric results. The patient was counseled about the test findings and appropriate audiologic recommendations were made. SUMMARY: Audiogram can be viewed under Forms/Audiology/SmartForm. OTOSCOPY RIGHT EAR: Otoscopic inspection revealed ear canal was clear with an identifiable cone of light. LEFT EAR: Otoscopic inspection revealed ear canal was clear with an identifiable cone of light. TYMPANOMETRY Description of procedure: This test is an objective evaluation of middle ear function. CPT code: 06755 RIGHT EAR: Normal ME function. LEFT EAR: Normal ME function. ACOUSTIC REFLEXES Description of procedure: This test is an objective measure of auditory and facial nerve pathways. RIGHT EAR PROBE EAR: (ipsi right stimulus ear; contralateral left stimulus ear): Acoustic Reflex Pattern Did not test Acoustic Reflex Decay (left stimulus ear): Did not test. LEFT EAR PROBE EAR: (ipsi left stimulus ear; contralateral right stimulus ear): Acoustic Reflex Pattern (Did not test Acoustic Reflex Decay (right stimulus ear):Did not test. PURE TONE AUDIOMETRY AND SPEECH TESTING Description of procedure: This test is an objective evaluation hearing sensitivity via air and bone conduction and speech recognition testing. CPT code: 28385 RIGHT EAR: Hearing Sensitivity: Mild sloping to moderately-severe sensorineural hearing loss Word Recognition Score: 90% which is considered excellent (90-100%). WRS is consistent with hearing sensitivity. Words were presented at 85 dB HL which is above (greater than or equal to 60 dB HL) intensity level for average conversational speech. The NU-6 Word List (25 words) was used and effective masking (EM) was applied to the contralateral ear. LEFT EAR: Hearing Sensitivity: Mild sloping to moderately-severe sensorineural hearing loss Word Recognition Score: 76% which is considered fair (70-79%). WRS is consistent with hearing sensitivity. Words were presented at 85 dB HL which is above (greater than or equal to 60 dB HL) intensity level for average conversational speech. The NU-6 Word List (25 words) was used and effective masking (EM) was applied to the contralateral ear. RECOMMENDATIONS Continue medical follow-up with Eugene Alfonso MD and Amor Escobar MD. It was suggested that Karen investigate the use of amplification to lessen the impact the hearing loss may have on communication function.Karen was advised to call [phone] to request a hearing aid evaluation (HAE) appointment to discuss management options. An appointment with a medical provider should be scheduled prior to HAE to obtain medical clearance for hearing aids. Re-evaluation as medically indicated or if a change in hearing is noted. The patient was counseled regarding the need to continue to monitor hearing and have regular hearing assessments. Hayley Garcia, [facility]-A Clinical Host/Hostess Restaurant/Vestibular Fellow copied to: Amor Escobar MD GONZALEZ Abbrev- iation Definition Degree of hearing sensi (more content not included)... [facility] 03-10-2023 History of Present illness Narrative Head and Neck [place] AUDIOLOGIC EVALUATION REPORT Name: Karen Falk [facility]#: [id number] Date of Service: 03/10/2023 Date of : 1950 Age: [age] year old Referred by: Amor Escobar MD Referred for: Evaluation of suspected change in hearing, tinnitus, or balance. Referral documented: In an order in [facility] Patient's major concerns: Reduced hearing in both ears Recall, Karen Falk was seen by Amor Escobar MD (Rheumatology) on 03/07/2023 reporting fluctuating hearing loss; an audiological evaluation was recommended at that time. Medical history is significant for granulomatosis with 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 rental involvement. At today's appointment, Karen reported intermittent left ear fluctuating hearing onset 2 years ago. Karen notices particular hearing difficulties with listening to television (utilizes closed captions) and clarification of speech. The right ear is perceived as a the better hearing ear.Additional otologic symptoms were denied including tinnitus, otalgia (0/10), otorrhea, aural fullness/pressure, vertigo/dizziness, and imbalance. Karen denied the following otologic risk factors: recent head trauma, prior otologic surgery, or loud noise exposure. Family history of hearing loss is non-contributory . See SmartForm Audiogram for additional reported history and symptoms. Risk of Falls Documentation for over 65 years old: No history of falls reported so minimal to no risk - currently ambulates with a wheel chair IMPRESSIONS RIGHT EAR: Sensorineural hearing loss LEFT EAR: Sensorineural hearing loss AUDIOLOGIC EVALUATION Following is a brief interpretation of the obtained findings from the audiologic evaluation. Refer to the Auditory Test Record for complete audiometric results. The patient was counseled about the test findings and appropriate audiologic recommendations were made. SUMMARY: Audiogram can be viewed under Forms/Audiology/SmartForm. OTOSCOPY RIGHT EAR: Otoscopic inspection revealed ear canal was clear with an identifiable cone of light. LEFT EAR: Otoscopic inspection revealed ear canal was clear with an identifiable cone of light. TYMPANOMETRY Description of procedure: This test is an objective evaluation of middle ear function. CPT code: 37201 RIGHT EAR: Normal ME function. LEFT EAR: Normal ME function. ACOUSTIC REFLEXES Description of procedure: This test is an objective measure of auditory and facial nerve pathways. RIGHT EAR PROBE EAR: (ipsi right stimulus ear; contralateral left stimulus ear): Acoustic Reflex Pattern Did not test Acoustic Reflex Decay (left stimulus ear): Did not test. LEFT EAR PROBE EAR: (ipsi left stimulus ear; contralateral right stimulus ear): Acoustic Reflex Pattern (Did not test Acoustic Reflex Decay (right stimulus ear):Did not test. PURE TONE AUDIOMETRY AND SPEECH TESTING Description of procedure: This test is an objective evaluation hearing sensitivity via air and bone conduction and speech recognition testing. CPT code: 90769 RIGHT EAR: Hearing Sensitivity: Mild sloping to moderately-severe sensorineural hearing loss Word Recognition Score: 90% which is considered excellent (90-100%). WRS is consistent with hearing sensitivity. Words were presented at 85 dB HL which is above (greater than or equal to 60 dB HL) intensity level for average conversational speech. The NU-6 Word List (25 words) was used and effective masking (EM) was applied to the contralateral ear. LEFT EAR: Hearing Sensitivity: Mild sloping to moderately-severe sensorineural hearing loss Word Recognition Score: 76% which is considered fair (70-79%). WRS is consistent with hearing sensitivity. Words were presented at 85 dB HL which is above (greater than or equal to 60 dB HL) intensity level for average conversational speech. The NU-6 Word List (25 words) was used and effective masking (EM) was applied to the contralateral ear. RECOMMENDATIONS Continue medical follow-up with Eugene Alfonso MD and Amor Escobar MD. It was suggested that Karen investigate the use of amplification to lessen the impact the hearing loss may have on communication function.Karen was advised to call [phone] to request a hearing aid evaluation (HAE) appointment to discuss management options. An appointment with a medical provider should be scheduled prior to HAE to obtain medical clearance for hearing aids. Re-evaluation as medically indicated or if a change in hearing is noted. The patient was counseled regarding the need to continue to monitor hearing and have regular hearing assessments. Hayley Garcia, [facility]-A Clinical Host/Hostess Restaurant/Vestibular Fellow copied to: MD ANGELICA Sharif Abbrev- iation Definition Degree of hearing sensitivity dB range WNL within normal limits WNL 0 - 20 SNHL sensorineural hearing loss Mild 20-40 CHL conductive hearing loss Moderate 40-55 MHL mixed hearing loss Moderately-Severe 55-70 WRS word recognition score Severe 70-90 ME middle ear Profound 90 + TM tympanic membrane documented in this encounter [facility] 03-08-2023 Note HNO ID: [id number] Author: JONNY Ambriz Service: ? Author Type: Respiratory Therapist Type: Progress Notes Filed: 03/08/2023 1:18 PM Note Text: PULM FUNCTION SMARTBLOCK: Provider: Amor Escobar MD Assisting Tech: JONNY Ambriz Spirometry: 1 [facility] 03-08-2023 History of Present illness Narrative PULM FUNCTION SMARTBLOCK: Provider: Amor Escobar MD Assisting Tech: JONNY Ambriz Spirometry: 1 documented in this encounter [facility] 03-07-2023 Note HNO ID: [id number] Author: Amor Escobar MD Service: ? Author Type: Physician Type: Progress Notes Filed: 03/28/2023 7:50 AM Note Text: Karen Paniagua White is a 72 year old female here for follow-up of GPA Evaluation Date: 03/07/2023 Last Visit in Rheumatology: 04/01/2022 (with Amor Escobar) ACTIVE PROBLEM LIST Coronary Artery Disease Involving [employer] [place] Coronary Artery of [place] Heart Without Angina Pectoris - 08/20/2021 History of Appendectomy - 08/20/2021 History of Bariatric Surgery - 08/20/2021 History of Cataract Extraction - 08/20/2021 History of Tonsillectomy - 08/20/2021 Granulomatosis With Polyangiitis (Hcc) - 07/22/2021 Persistent Atrial Fibrillation (Hcc) - 05/15/2019 Status Post Catheter Ablation of Atrial Fibrillation Comment: balloon catheter cryoablation atrial fibrillation PVAI 05/15/2019 Obesity, Class I, Bmi 30-34.9 - 03/19/2019 At Risk for Stroke Comment: [id number] = 3 (HTN, age, female gender) Anticoagulant Long-Term Use Comment: apixaban (Eliquis); indication: stroke prevention AF Palpitations - 03/14/2019 Nonrheumatic Mitral (Valve) Insufficiency - 03/14/2019 Nonrheumatic Tricuspid (Valve) Insufficiency - 03/14/2019 History of Colonic Polyps - 07/24/2018 Comment: Added automatically from request for surgery [id number] Family History of Colon Cancer in Father - 07/24/2018 Comment: Added automatically from request for surgery [id number] Punctate Keratitis, Bilateral - 08/31/2017 Personal History of Breast Cancer - 01/24/2017 Shortness of Breath - 10/27/2016 Essential Hypertension - 10/27/2016 Vitreous Floaters of Both Eyes - 08/26/2016 Dry Eye Syndrome of Both Eyes - 08/26/2016 Pseudophakia of Both Eyes - 08/22/2015 Hyperlipidemia - 08/28/2014 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 - 08/30/2006 INTERVAL HX: At today's visit Karen Falk states that she has been doing overall well, except for significant fatigue everyday and a new symptom of hoarseness , that is intermittent and started about one yr ago SOB with exertion - unchanged (ILD) Hearing fluctuates Review of Systems CONSTITUTION: Negative for: Fever and Recent weight change HEENT: Negative for: Nosebleeds, Mouth sores, Trouble swallowing and Dry mouth RESPIRATORY: Positive for: Shortness of breath Negative for: Cough and Pain with breathing GASTROINTESTINAL: Negative for: Melena, Diarrhea, Heartburn and Abdominal pain MUSCULOSKELETAL: Positive for: Arthralgias and Muscle weakness Negative for: Myalgias, Joint swelling and Morning Joint Stiffness generalized weakness NEUROLOGICAL: Negative for: Headaches, Numbness and Memory loss SKIN: Negative for: Rash, Skin changes, Hair loss and Nail changes EYES: Positive for: Eye dryness Negative for: Eye pain, Eye redness and visual disturbance CARDIOVASCULAR: Negative for: Chest pain and Leg swelling GENITOURINARY: Negative for: Dysuria and Hematuria HEMATOLOGIC/LYMPHATIC: Negative for: Swollen glands ENT: negative for, sinus tenderness, nasal crusting, epistaxis, ear pain, sore throat, difficulty swallowing, mouth lesions REVIEW OF FAMILY AND/OR SOCIAL HISTORY: The family and/or social were reviewed at todays visit and no changes were noted. Current Outpatient Medications Medication Sig budesonide, enteric coated (ENTOCORT EC) 3 mg 24 hr capsule TAKE 3 CAPSULES BY MOUTH IN THE MORNING FOR MICROSCOPIC COLITIS propylene glycoL (SYSTANE COMPLETE) 0.6 % drop Use 1 Drop in both eyes three times daily. Artificial Tear, Hypromellose, (GENTEAL TEARS SEVERE GEL) 0.3 % gel Use 1 Drop in both eyes daily at bedtime. potassium chloride (K-TAB) 10 mEq tablet Take 10 mEq by mouth twice daily. aspirin, enteric coated (ASPIRIN, ENTERIC COATED) 81 mg EC tablet Take 81 mg by mouth once daily. Cholecalciferol, Vitamin D3, 50 mcg (2,000 unit) cap Take by mouth. metoprolol tartrate, short acting, (LOPRESSOR) 25 mg tablet Take 12.5 mg by mouth twice daily. atorvastatin calcium(LIPITOR 10 MG TAB) Take one(1) tablet daily. colestipol (COLESTID) 1 gram tablet Take 1 g by mouth twice daily. ELIQUIS 5 mg tab(s) Take 5 mg by mouth twice daily. (Patient not taking: No sig reported) FLUoxetine (PROZAC) 40 mg capsule Take 40 mg by mouth once daily. albuterol HFA (PROVENTIL HFA, VENTOLIN HFA) 90 mcg/actuation inhaler INHALE 2 PUFFS 6 (SIX) TIMES DAILY NEEDED FOR SHORTNESS OF BREATH / COUGH propylene glycoL 0.6 % drop Use 1 Drop in both eyes four times daily. acetaminophen(TYLENOL 325 MG TAB) Take two(2) tablets every four(4) to six(6) hours as needed for pain. No current facility-administered medications for this visit. PHYSICAL EXAMINATION Blood pressure 134/57, pulse 70, temperature 36.4 ?C (97.5 ?F), temperature source Oral, height 157.5 cm (5' 2.01 ), SpO2 100 %. GENERAL APPEARANCE: well SKIN: normal without rashes or lesions EYES: conjunctiva clear, PERRL, EOM normal E (more content not included)... [facility] 01-19-2023 Note HNO ID: [id number] Author: Amor Escobar MD Service: ? Author Type: Physician Type: Progress Notes Filed: 01/19/2023 2:30 PM Note Text: cbc [facility] 01-19-2023 History of Present illness Narrative cbc documented in this encounter [facility] 12-06-2022 History of Present illness Narrative ASSESSMENT/PLAN: 1. Punctate keratitis of both eyes - ICD9: 370.21, ICD10: H16.143 (primary diagnosis) Start: Systane Complete solution instill 1 drop 3 times daily Both Eyes. Genteal Gel at bedtime Both Eyes. 2. Pseudophakia of both eyes - ICD9: V43.1, ICD10: Z96.1 Intraocular lens implant in good position Both Eyes. Recommended patient see Dr. Jocelyne Jones for refraction and glasses. 3. Essential hypertension - ICD9: 401.9, ICD10: I10 Continue to monitor with primary care physician. 4. Hypercholesteremia - ICD9: 272.0, ICD10: E78.00 Continue to monitor with primary care physician. Ronnie Reyna MD I have confirmed and edited as necessary the relevant ophthalmic history, review of systems, surgical history, and ophthalmological examination findings as obtained by the ophthalmic technical staff. I have seen and examined Karen Falk. I have discussed the examination findings, diagnosis, and treatment options with Karen Falk and/or her family. I have also reviewed and agree with the assessment and plan as stated above and agree with all its relevant components. I gave the patient the opportunity to ask questions about the findings, diagnosis, and treatment options. documented in this encounter [facility] 12-06-2022 Instructions Ronnie Reyna MD - 12/06/2022 1:48 PM EST Start: Systane Complete solution instill 1 drop 3 times daily Both Eyes. Genteal Gel at bedtime Both Eyes. If you have any questions please contact our office at [phone]. After office hours or on the weekend, please call Dr. Reyna on his cell phone at [phone]. documented in this encounter [facility] 11-12-2022 Miscellaneous Notes Left message for patient. The appointment is fine. Navya Yu RN Patient called for an update regarding her message I scheduled her for March 07. If you need to see her close to the infusion date, please let her know. She can be reached at [phone] (home) Patient has been identified by name and date of : Yes . Patient calling for :general concern. Pt called asking if Dr. Eliceo Escobar would like to see her before her next infusion March 2023 Pharmacy has been updated: Yes . Return call needed: Patient is expecting a call back. Can be reached at phone number listed below.. Patient can be reached at : [phone] (home) documented in this encounter [facility] 09-28-2022 Miscellaneous Notes Received outside labs results (stool sample) from [facility] dated 09/16/2022. Scanned to chart and forwarded to doctor for review. documented in this encounter [facility] 09-23-2022 Miscellaneous Notes Received outside labs from [facility] dated 09/16/2022. Scanned to chart and forwarded to doctor for review. documented in this encounter [facility] 09-21-2022 Miscellaneous Notes Phone call to patient. She did not see the message for the appointment. Patient informed me that they are working her up for C-diff again. Instructed patient to send any testing & notes to Dr. Guzman & to check with Dr. Guzman before receiving the infusion. Patient verbalized understanding. Navya Yu RN documented in this encounter [facility] 06-25-2022 Miscellaneous Notes Medications are still attached and unable to close this encounter. Phone call to patient. Her C-diff is all cleared up. She has questions about her antibiotic ( Bactrim) & her infusion. Due to her lengthy illness, she is scheduled next week to see Dr. Guzman for evaluation. Navya Yu RN Spoke with patient and advised her that, per the orders, patient is not due until October 2022. Patient states she hasn't had a treatment since August and treatment was supposed to be every 6 months. Please advise/adjust orders as appropriate. Zenia Hummel . Patient is calling to set up treatments ordered by Dr Eliceo Escobar sometime after 04/03. Patient prefers mid morning if possible any day of the week. Please return call to patient. documented in this encounter [facility] 04-23-2022 Miscellaneous Notes Patient returned call and scheduled. Zenia Hummel Left message for patient to return call. When patient calls, please schedule next Rituxan treatment on 10/13/22 (24 wks). Once scheduled, document and close this note. Zenia Hummel Patient called in and would like to schedule her next treatment 6 months from her treatment scheduled from 04/28. Please call to schedule documented in this encounter [facility] 04-01-2022 History of Present illness Narrative Patient arrives ambulatory for receipt of COVID-19 Monoclonal Antibodies for pre-exposure prophylaxis. Patient is identified by name and date of Previous [facility] Administrations (last [id number] hours) Date/Time Action Medication Dose 04/01/22 1126 Given cilgavimab 300 mg intramuscular injection (EVUSHELD) 300 mg 04/01/22 1126 Given tixagevimab 300 mg intramuscular injection (EVUSHELD) 300 mg Patient is receiving initial dose (Evusheld (tixagevimab 300 mg/cilgevimab 300 mg IM x 1) COVID 19 Result (no units) Date Value 03/31/2022 SARS-CoV-2 (Agent of COVID-19) Not Detected by RT-PCR or equivalent method. Confirmed negative COVID test prior to injection: Yes Autopopulate last platelet count: Platelet Count Date Value Ref Range Status 02/03/2022 520 (H) 150 - 400 k/uL Final If platelets < 20 - do not administer: review with provider If platelets 20-50: apply pressure for 5 minutes after the IM injection If patients > 50: no limitations Patient confirms she received Medication information Fact Sheet and has reviewed prior to treatment. Denies any concerns regarding treatment today. See Doc flow sheet Ambulatory injection and MAR for further documentation Patient is declines AVS and will see information in My Chart. Patient denies any other questions or concerns prior to discharge. Patient is discharged home ambulatory. 1205 Patient requesting to leave early. Vital signs stable. Patient with daughter & discharged to home. Navya Yu RN documented in this encounter [facility] 04-01-2022 History of Present illness Narrative Karen Falk is a 71 year old female here for follow-up of 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 Evaluation Date: 04/01/2022 Last Visit in Rheumatology: 02/03/2022 (with Amor Escobar) ACTIVE PROBLEM LIST Coronary Artery Disease Involving [employer] Coronary Artery of [place] Heart Without Angina Pectoris - 08/20/2021 History of Appendectomy - 08/20/2021 History of Bariatric Surgery - 08/20/2021 History of Cataract Extraction - 08/20/2021 History of Tonsillectomy - 08/20/2021 Granulomatosis With Polyangiitis (Hcc) - 07/22/2021 Persistent Atrial Fibrillation (Hcc) - 05/15/2019 Status Post Catheter Ablation of Atrial Fibrillation Comment: balloon catheter cryoablation atrial fibrillation PVAI 05/15/2019 Obesity, Class I, Bmi 30-34.9 - 03/19/2019 At Risk for Stroke Comment: [id number] = 3 (HTN, age, female gender) Anticoagulant Long-Term Use Comment: apixaban (Eliquis); indication: stroke prevention AF Palpitations - 03/14/2019 Nonrheumatic Mitral (Valve) Insufficiency - 03/14/2019 Nonrheumatic Tricuspid (Valve) Insufficiency - 03/14/2019 History of Colonic Polyps - 07/24/2018 Comment: Added automatically from request for surgery [id number] Family History of Colon Cancer in Father - 07/24/2018 Comment: Added automatically from request for surgery [id number] Punctate Keratitis, Bilateral - 08/31/2017 Personal History of Breast Cancer - 01/24/2017 Shortness of Breath - 10/27/2016 Essential Hypertension - 10/27/2016 Vitreous Floaters of Both Eyes - 08/26/2016 Dry Eye Syndrome of Both Eyes - 08/26/2016 Pseudophakia of Both Eyes - 08/22/2015 Hyperlipidemia - 08/28/2014 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 - 08/30/2006 INTERVAL HX: At today's visit Karen Falk states that she has been It has been 3 weeks from end of treatment for CDiff and she has not had any diarrhea or any other GI symptoms since then. Chronic SOB - has been about the same but the CDiff infection was hard on her, she felt very sick and needed more help at home. Still with severe fatigue. She has a chronic cough - it is dry Left hearing fluctuates as well as the hoarseness + pain in the elbows: off and on for a while Review of Systems CONSTITUTION: Negative for: Fever and Recent weight change HEENT: Negative for: Nosebleeds, Mouth sores, Trouble swallowing and Dry mouth RESPIRATORY: Positive for: Cough and Shortness of breath Negative for: Pain with breathing and Coughing up blood GASTROINTESTINAL: Negative for: Melena, Diarrhea, Heartburn and Abdominal pain MUSCULOSKELETAL: Positive for: Muscle weakness and Morning Joint Stiffness Negative for: Arthralgias, Myalgias and Joint swelling NEUROLOGICAL: Positive for: Numbness and Memory loss Negative for: Headaches numbness in hands and feet - unchanged, from prior chemo SKIN: Negative for: Rash, Skin changes, Hair loss and Nail changes EYES: Positive for: Eye dryness and Visual disturbance Negative for: Eye pain and Eye redness CARDIOVASCULAR: Negative for: Chest pain and Leg swelling GENITOURINARY: Negative for: Dysuria and Hematuria HEMATOLOGIC/LYMPHATIC: Negative for: Swollen glands No sinus, ear or nose pain no nosebleeds or crusting REVIEW OF FAMILY AND/OR SOCIAL HISTORY: The family and/or social were reviewed at todays visit and no changes were noted. Current Outpatient Medications Medication Sig ELIQUIS 5 mg tab(s) Take 5 mg by mouth twice daily. carboxymethylcellulose (REFRESH) 0.5 % drop Use in eyes. FLUoxetine (PROZAC) 40 mg capsule Take 40 mg by mouth once daily. aspirin, enteric coated (ASPIRIN, ENTERIC COATED) 81 mg EC tablet Take 81 mg by mouth once daily. Cholecalciferol, Vitamin D3, 50 mcg (2,000 unit) cap Take by mouth. metoprolol tartrate, short acting, (LOPRESSOR) 25 mg tablet Take 12.5 mg by mouth twice daily. atorvastatin calcium(LIPITOR 10 MG TAB) Take one(1) tablet daily. acetaminophen(TYLENOL 325 MG TAB) Take two(2) tablets every four(4) to six(6) hours as needed for pain. albuterol HFA (PROVENTIL HFA, VENTOLIN HFA) 90 mcg/actuation inhaler INHALE 2 PUFFS 6 (SIX) TIMES DAILY NEEDED FOR SHORTNESS OF BREATH / COUGH propylene glycol (SYSTANE BALANCE) 0.6 % drop Use 1 Drop in both eyes four times daily. (Patient not taking: Reported on 04/01/2022 ) No current facility-administered medications for this visit. PHYSICAL EXAMINATION Blood pressure 119/66, pulse 66, temperature (!) 35.9 C (96.7 F), temperature source Temporal, height 157.5 cm (5' 2 ), weight 76.2 kg (168 lb). GENERAL APPEARANCE: well SKIN: normal without rashes or lesions EYES: conjunctiva clear, PERRL, EOM normal EARS: External ears normal, TM's normal NOSE/SINUSES: normal OROPHARYNX: no oral lesions present, no oral ulcers. LUNGS: clear HEART: RRR, no gallops, rubs or murmurs ABDOMEN: soft, non-tender, normal BS MUSCULOSKELETAL: no joint tenderness or swelling NEURO: motor 03/11 Lab results: WBC Date Value Ref Range Status 04/01/2022 8.25 3.70 - 11.00 k/uL Final Hemoglobin Date Value Ref Range Status 04/01/2022 11.6 11.5 - 15.5 g/dL Final Hematocrit Date Value Ref Range Status 04/01/2022 38.0 36.0 - 46.0 % Final Platelet Count Date Value Ref Range Status 04/01/2022 371 150 - 400 k/uL Final Abs Lymph Date Value Ref Range Status 04/01/2022 1.96 1.00 - 4.00 k/uL Final Creatinine Date Value Ref Range Status 04/01/2022 0.77 0.58 - 0.96 mg/dL Final Glucose Date Value Ref Range Status 04/01/2022 96 74 - 99 mg/dL Final Comment: The [place] [employer] (ADA) provides guidance for cutoff values for fasting glucose and random glucose. The ADA defines fasting as no caloric intake for at least 8 hours. Fasting plasma glucose results between 100 to 125 mg/dL indicate increased risk for diabetes (prediabetes). Fasting plasma glucose results greater than or equal to 126 mg/dL meet the criteria for diagnosis of diabetes. In the absence of unequivocal hyperglycemia, results should be confirmed by repeat testing. In a patient with classic symptoms of hyperglycemia or hyperglycemic crisis, random plasma glucose results greater than or equal to 200 mg/dL meet the criteria for diagnosis of diabetes. Reference: Standards of Medical Care in Diabetes 2016, [place] [employer]. Diabetes Care. 2016.39(Suppl 1). AST Date Value Ref Range Status 04/01/2022 16 13 - 35 U/L Final ALT Date Value Ref Range Status 04/01/2022 12 7 - 38 U/L Final Sed Rate, [place] Date Value Ref Range Status 04/01/2022 41 (H) 0 - 20 mm/hr Final CRP Date Value Ref Range Status 04/01/2022 0.6 <0.9 mg/dL Final Alkaline Phosphatase Date Value Ref Range Status 04/01/2022 110 34 - 123 U/L Final Urine: Specific [place], Ur Date Value Ref Range Status 02/09/2022 1.017 1.005 - 1.030 Final Glucose, Urine Date Value Ref Range Status 02/09/2022 Negative Negative Final Bilirubin, Urine Date Value Ref Range Status 02/09/2022 Negative Negative Final Ketones, Urine Date Value Ref Range Status 02/09/2022 Negative Negative Final Hemoglobin/Blood,Ur Date Value Ref Range Status 02/09/2022 Negative Negative Final Protein, Urine Date Value Ref Range Status 02/09/2022 Negative Negative Final WBC, Urine Date Value Ref Range Status 11/15/2021 0-5 0 - 5 /HPF Final ASSESSMENT: 1. 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 CDiff resolved and she can proceed with maintenance therapy for GPA urine sed today - normal Assessment and plan were discussed with the patient. PLAN: - proceed with Rituximab - Evushtoo Orders: none Consults: none Monitoring: Continue monthly labs Patient instructed to notify provider of any changes in medical condition. Follow-up: 4 months or before as needed I spent a total of 40 minutes on the date of the service which included preparing to see the patient, [id number] patient care, completing clinical documentation, obtaining and/or reviewing separately obtained history, performing a medically appropriate examination, counseling and educating the patient/family/caregiver, ordering medications, tests, or procedures and independently interpreting results (not separately reported). Amor Guzman MD, MPH ID: Dr. Mando Ware [phone] call with question about timing of restaerting the Bactrim for PJP prophylaxis documented in this encounter [facility] 03-31-2022 Instructions Navya Yu RN - 03/31/2022 3:09 PM EDT Fact Sheet for Patients, Parents And Caregivers Emergency Use Authorization (EUA) of EVUSHELD (tixagevimab co-packaged with cilgavimab) for Coronavirus Disease 2019 (COVID-19) You are being given this Fact Sheet because your healthcare provider believes it is necessary to provide you with EVUSHELD (tixagevimab co-packaged with cilgavimab) for pre-exposure prophylaxis for prevention of coronavirus disease 2019 (COVID-19) caused by the SARS-CoV-2 virus. This Fact Sheet contains information to help you understand the potential risks and potential benefits of taking EVUSHELD, which you have received or may receive. The U.S. Food and Drug Administration (FDA) has issued an Emergency Use Authorization (EUA) to make EVUSHELD available during the COVID-19 pandemic (for more details about an EUA please see What is an Emergency Use Authorization? at the end of this document). EVUSHELD is not an FDA-approved medicine in the [place]. Read this Fact Sheet for information about EVUSHELD. Talk to your healthcare provider if you have any questions. It is your choice to receive or not receive EVUSHELD. What is COVID-19? COVID-19 is caused by a virus called a coronavirus. You can get COVID-19 through close contact with another person who has the virus. COVID-19 illnesses have ranged from very mild (including some with no reported symptoms) to severe, including illness resulting in . While information so far suggests that most COVID-19 illness is mild, serious illness can happen and may cause some of your other medical conditions to become worse. Older people and people of all ages with severe, long-lasting (chronic) medical conditions like heart disease, lung disease, and diabetes, for example, seem to be at higher risk of being hospitalized for COVID-19. What is EVUSHELD (tixagevimab co-packaged with cilgavimab)? EVUSHELD is an investigational medicine used in adults and adolescents (12 years of age and older who weigh at least 88 pounds [40 kg]) for pre-exposure prophylaxis for prevention of COVID-19 in persons who are: not currently infected with SARS-CoV-2 and who have not had recent known close contact with someone who is infected with SARS-CoV-2 and o Who have moderate to severe immune compromise due to a medical condition or have received immunosuppressive medicines or treatments and may not mount an adequate immune response to COVID-19 vaccination or o For whom vaccination with any available COVID-19 vaccine, according to the approved or authorized schedule, is not recommended due to a history of severe adverse reaction (such as severe allergic reaction) to a COVID-19 vaccine(s) or COVID-19 vaccine ingredient(s). EVUSHELD is investigational because it is still being studied. There is limited information known about the safety and effectiveness of using EVUSHELD for pre-exposure prophylaxis for prevention of COVID-19. EVUSHELD is not authorized for post-exposure prophylaxis for prevention of COVID-19. The FDA has authorized the emergency use of EVUSHELD for pre-exposure prophylaxis for prevention of COVID-19 under an Emergency Use Authorization (EUA). What should I tell my healthcare provider before I receive EVUSHELD? Tell your healthcare provider if you: Have any allergies Have low numbers of blood platelets (which help blood clotting), a bleeding disorder, or are taking anticoagulants (to prevent blood clots) Have had a heart attack or stroke, have other heart problems, or are at high-risk of cardiac (heart) events Are or plan to become Are a child Have any serious illness Are taking any medications (prescription, [id number], vitamins, or herbal products) How will I receive EVUSHELD? EVUSHELD consists of two investigational medicines, tixagevimab and cilgavimab. You will receive 1 dose of EVUSHELD, consisting of 2 separate injections (tixagevimab and cilgavimab). EVUSHELD will be given to you by your healthcare provider as 2 intramuscular injections, given one after the other. You may need to receive additional doses of EVUSHELD for ongoing protection. Viruses can microsoft exchange administrator time (mutate) and develop into a slightly different form of the virus, called a variant. The duration that EVUSHELD will protect you from infection may change with certain variants. The best timing for you to receive additional doses of EVUSHELD, if needed, is not known right now, because this depends on which SARS-CoV-2 variants will be present in the future. Talk to your healthcare provider about receiving additional doses of EVUSHELD for ongoing protection and for further instructions. You can keep up-to-date with the latest information by visiting [email or web address] or by scanning the QR code, below: Who should generally not take EVUSHELD? Do not take EVUSHELD if you have had a severe allergic reaction to EVUSHELD or any ingredient in EVUSHELD. What are the important possible side effects of EVUSHELD? Possible side effects of EVUSHELD are: Allergic reactions. Allergic reactions can happen during and after injection of EVUSHELD. Tell your healthcare provider right away if you get any of the following signs and symptoms of allergic reactions: fever, chills, nausea, headache, shortness of breath, low or high blood pressure, rapid or slow heart rate, chest discomfort or pain, weakness, confusion, feeling tired, wheezing, swelling of your lips, face, or throat, rash including hives, itching, muscle aches, dizziness and sweating. These reactions may be severe or life threatening. Cardiac (heart) events: Serious cardiac adverse events have happened, but were not common, in people who received EVUSHELD and also in people who did not receive EVUSHELD in the clinical trial studying pre-exposure prophylaxis for prevention of COVID-19. In people with risk factors for cardiac events (including a history of heart attack), more people who received EVUSHELD experienced serious cardiac events than people who did not receive EVUSHELD. It is not known if these events are related to EVUSHELD or underlying medical conditions. Contact your healthcare provider or get medical help right away if you get any symptoms of cardiac events, including pain, pressure, or discomfort in the chest, arms, neck, back, stomach or jaw, as well as shortness of breath, feeling tired or weak (fatigue), feeling sick (nausea), or swelling in your ankles or lower legs. The side effects of getting any medicine by intramuscular injection may include pain, bruising of the skin, soreness, swelling, and possible bleeding or infection at the injection site. These are not all the possible side effects of EVUSHELD. Not a lot of people have been given EVUSHELD. Serious and unexpected side effects may happen. EVUSHELD is still being studied so it is possible that all of the risks are not known at this time. It is possible that EVUSHELD may reduce your body s immune response to a COVID-19 vaccine. If you have received a COVID-19 vaccine, you should wait to receive EVUSHELD until at least 2 weeks after COVID-19 vaccination. What other prevention choices are there? Vaccines to prevent COVID-19 are approved or available under Emergency Use Authorization. Use of EVUSHELD does not replace vaccination against COVID-19. For more information about other medicines authorized for treatment or prevention of COVID-19 go to https://www.fda.gov/emergency-pre sisdtnsrf-deh-xkbvhhkg/mcm-legal- vrnssywpfa-sdj-fbtvot-framework/e tfvobkfi-lfj-lysehkrvsentj. It is your choice to receive or not receive EVUSHELD. Should you decide not to receive EVUSHELD, it will not change your standard medical care. EVUSHELD is not authorized for post-exposure prophylaxis of COVID-19. What if I am or ? If you are or , discuss your options and specific situation with your healthcare provider. How do I report side effects with EVUSHELD? Contact your healthcare provider if you have any side effects that bother you or do not go away. Report side effects to FDA MedWatch at www.fda.gov/medwatch or call 3-045-JKZ-2198 or call [employer] at . Additional Information If you have questions, visit the website or call the telephone number provided below. To access the most recent EVUSHELD Fact Sheets, please scan the QR code provided below. Website Telephone number [email or web address] How can I learn more about COVID-19? Ask your healthcare provider. Visit https://www.cdc.gov/COVID19 Contact your local or state public health department. What is an Emergency Use Authorization? The [place] FDA has made EVUSHELD (tixagevimab co-packaged with cilgavimab) available under an emergency access mechanism called an Emergency Use Authorization EUA. The EUA is supported by a [place] Clerk of Health and Human Service (HHS) declaration that circumstances exist to justify the emergency use of drugs and biological products during the COVID-19 pandemic. EVUSHELD for pre-exposure prophylaxis for prevention of coronavirus disease 2019 (COVID-19) caused by the SARS-CoV-2 virus has not undergone the same type of review as an FDA-approved product. In issuing an EUA under the COVID-19 public health emergency, the FDA has determined, among other things, that based on the total amount of scientific evidence available including data from adequate and well-controlled clinical trials, if available, it is reasonable to believe that the product may be effective for diagnosing, treating, or preventing COVID-19, or a serious or life-threatening disease or condition caused by COVID-19; that the known and potential benefits of the product, when used to diagnose, treat, or prevent such disease or condition, outweigh the known and potential risks of such product; and that there are no adequate, approved and available alternatives. All of these criteria must be met to allow for the product to be used in the treatment of patients during the COVID-19 pandemic. The EUA for EVUSHELD is in effect for the duration of the COVID-19 declaration justifying emergency use of EVUSHELD, unless terminated or revoked (after which EVUSHELD may no longer be used under the EUA). Distributed by: [employer], [place], [place] Manufactured by: [employer] [address] [facility], [place] [address], [place] [facility] [employer] 2020. All rights reserved. documented in this encounter [facility] 03-31-2022 Miscellaneous Notes Evusheld (tixagevimab/cilgavimab) Eligibility and Patient Discussion [facility] Formulary Restriction Criteria: Outpatient adults and pediatrics 12 years and older and > 40 kg with ALL of the following: [x] COVID test scheduled: Yes Date: 03/31/22, type of test:SelfCheck [x] Patient has not been exposed to a SARS-COV-2 positive individual [place] on COVID exposure [place] [x] Patient is not exhibiting symptoms of SARS-COV-2 infection [x] Patient is able to come in to the clinic for the Evusheld injection [x] Meeting at least one criteria below: [] Active treatment for solid tumor and hematologic malignancies [] Receipt of solid-organ transplant and taking immunosuppressive therapy [] Receipt of chimeric antigen receptor (CAR)-T-cell or hematopoietic stem cell transplant (within 2 years of transplantation or taking immunosuppressive therapy) [] Moderate or severe primary immunodeficiency (e.g. DiGeorge syndrome, Wiskott-Aldrick syndrome) [] Advanced or untreated HIV infection (people with HIV and CD4 cell counts < 200/mm3, history of an AIDS-defining illness without immune reconstitution, or clinical manifestations of symptomatic HIV) [] Active treatment with high-dose corticosteroids (i.e., >20 mg prednisone or equivalent per day when administered for > 2 weeks), alkylating agents, antimetabolites, transplant-related immunosuppressive drugs, cancer chemotherapeutic agents classified as severely immunosuppressive, and other biologic agents that are significantly immunosuppressive (e.g., B-cell depleting agents, cyclophosphamide) [x] Other moderate to severely immunocompromising condition: GPA [] Patients for whom vaccination with any COVID-19 vaccine, according to the approved or authorized schedule, is not recommended due to a history of severe adverse reaction (e.g. severe allergic reaction) to a COVID-19 vaccine(s) and/or COVID-19 vaccine components Criteria above are met: Yes Patient received COVID vaccine: Yes Last dose of COVID vaccine is greater than 14 days prior to the planned injection date of Evusheld: Yes Laboratory and comorbidity assessment: Platelet Count (k/uL) Date Value 02/03/2022 520 (H) 11/16/2021 343 Last platelet count greater than 20 k/uL: Yes. If on warfarin, most recent INR should be within therapeutic range: not applicable Cardiovascular disease history: No. I have discussed the use of the investigational therapeutic, Evusheld (tixagevimab/cilgevimab), for pre-exposure prophylaxis of COVID-19 infection and its use under Emergency Use Authorization with the patient. The patient was informed that tixagevimab/cilgevimab is not an FDA approved drug and that it is authorized for use under this Emergency Use Authorization. The patient was also informed of the significant known benefits and potential risks of tixagevimab/cilgevimab, and the extent to which such potential risks and benefits are unknown. The patient was informed that there is mandatory reporting of all medication errors and serious adverse events potentially related to tixagevimab/cilgevimab treatment within 7 calendar days from the onset of the event. The discussion included alternatives to receiving tixagevimab/cilgevimab, including clinical trials, and potential the risks and benefits of those alternatives. The patient was provided electronically with the Fact Sheet for Patients, Parents and Caregivers . The patient stated understanding and gave verbal consent to proceeding with tixagevimab/cilgevimab treatment. Navya Yu RN March 31, 2022 3:11 PM documented in this encounter [facility] 02-25-2022 Instructions Zenia Moreno PA-C - 02/25/2022 10:30 AM EDT -- Please let me know if diarrhea returns after finishing second round of Dificid documented in this encounter [facility] 02-25-2022 History of Present illness Narrative CHIEF COMPLAINT: Patient presents with: Transplant fecal: C Diff- Diarrhea, Abd Pain This consult was requested by Mando Ware MD for an opinion regarding transplant fecal. My final recommendations will be communicated to the requesting health care provider by way of the shared medical record for internal providers or letter via the [employer]Comment [employer] Service for external providers. HPI: Karen Paniagua White is a 71 year old female who presents for Transplant fecal (C Diff- Diarrhea, Abd Pain ). PMHx of HLD, palpitations, A fib, granulomatosis w/ polyangiitis, CAD, HTN, SOB, hx of colon polyps, obesity S/p bariatric surgery is present today. Patient was admitted to an OSH in December for diverticulitis. Tells me that she was over treated with antibiotics and developed C diff. Patient tells me that she is feeling decent today. Having intermittent abdominal cramping in the LLQ. Diarrhea is under control at this time. Was started on Dificid about a week ago. Notes okay diarrhea at this time. Has been on Vanco, Vancomycin taper and now two rounds of Dificid. Also got C diff AB infusion on 02/09/2022 by [facility]. Appetite is good. Weight is stable. No nausea or vomiting. No fevers or chills. Patient is getting chemo treatments for polyangiitis. No smoking or alcohol use. Father passed from colon cancer. Last colonoscopy 4 years ago. Normal. Component Latest Ref Rng & Units 02/03/2022 WBC 3.70 - 11.00 k/uL 10.20 RBC 3.90 - 5.20 m/uL 4.47 Hemoglobin 11.5 - 15.5 g/dL 12.0 Hematocrit 36.0 - 46.0 % 39.0 MCV 80.0 - 100.0 fL 87.2 MCH 26.0 - 34.0 pg 26.8 MCHC 30.5 - 36.0 g/dL 30.8 RDW-CV 11.5 - 15.0 % 18.3 (H) Platelet Count 150 - 400 k/uL 520 (H) MPV 9.0 - 12.7 fL 11.2 Neut% % 58.2 Abs Neut (ANC) 1.45 - 7.50 k/uL 5.94 Lymph% % 22.0 Abs Lymph 1.00 - 4.00 k/uL 2.24 [place]% % 14.3 Abs [place] <0.87 k/uL 1.46 (H) Eosin% % 4.4 Abs Eosin <0.46 k/uL 0.45 Baso% % 0.7 Abs Baso <0.11 k/uL 0.07 Immature Gran % % 0.4 IMMATURE GRANS (ABS) <0.10 k/uL 0.04 NRBC /100 WBC 0.0 Absolute nRBC <0.01 k/uL <0.01 DTYPE Auto Protein, Total 6.3 - 8.0 g/dL 6.3 Albumin 3.9 - 4.9 g/dL 3.7 (L) Calcium 8.5 - 10.2 mg/dL 9.6 Bilirubin, Total 0.2 - 1.3 mg/dL 0.3 Alkaline Phosphatase 34 - 123 U/L 93 AST 13 - 35 U/L 55 (H) ALT 7 - 38 U/L 25 Glucose 74 - 99 mg/dL 107 (H) BUN 7 - 21 mg/dL 6 (L) Creatinine 0.58 - 0.96 mg/dL 0.67 Sodium 136 - 144 mmol/L 138 Potassium 3.7 - 5.1 mmol/L 3.8 Chloride 97 - 105 mmol/L 102 CO2 22 - 30 mmol/L 22 Anion Gap 9 - 18 mmol/L 14 eGFR >=60 mL/min/1.73m 92 WSR 0 - 20 mm/hr 58 (H) Record Review: [facility] / Outside records reviewed. PAST MEDICAL HISTORY Diagnosis Date Acute gastritis without mention of hemorrhage Anticoagulant long-term use apixaban (Eliquis); indication: stroke prevention AF Arrhythmia At risk for stroke [id number] = 4 (HTN, age, CAD, female gender) Benign neoplasm of colon Breast cancer, stage 4 (HCC) 2007 right breast - chemo and radiation Coronary artery disease involving [place] coronary artery of [place] heart without angina pectoris Diaphragmatic hernia without mention of obstruction or gangrene Diverticulosis of colon (without mention of hemorrhage) Esophageal reflux Essential hypertension Family history of malignant neoplasm of gastrointestinal tract Fatigue Granulomatosis with polyangiitis (HCC) 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) 07/22/2021 HLD (hyperlipidemia) Hypercholesteremia Nonrheumatic mitral (valve) insufficiency Nonrheumatic tricuspid (valve) insufficiency Obesity OXANA (obstructive sleep apnea) Osteoporosis, unspecified Other and unspecified hyperlipidemia Palpitations Paroxysmal atrial fibrillation (HCC) Persistent atrial fibrillation (HCC) initially paroxysmal but became persistent over time; s/p AF catheter ablation 05/15/2019 Personal history of colonic polyps Pulmonary fibrosis (HCC) SOB (shortness of breath) Status post catheter ablation of atrial fibrillation balloon catheter cryoablation atrial fibrillation PVAI 05/15/2019 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) PAST SURGICAL HISTORY Procedure Laterality Date AFIB ABLATION/PULM VEIN ISOLATION 05/15/2019 balloon catheter cryoablation atrial fibrillation PVAI; [facility] Dr. Reid APPENDECTOMY CARDIAC CATH Left 05/15/2008 preserved LV systolic fxn; no significant CAD CARDIAC STRESS TEST 12/13/2016 reportedly no ischemia; AF noted; preserved LVEF COLONOSCOPY FLX DX W/COLLJ SPEC WHEN PFRMD 12/29/2004 Colonoscopy COLONOSCOPY FLX DX W/COLLJ SPEC WHEN PFRMD 12/02/2009 COLONOSCOPY FLX DX W/COLLJ SPEC WHEN PFRMD 09/11/2015 Colonoscopy COLONOSCOPY FLX DX W/COLLJ SPEC WHEN PFRMD 10/09/2018 repeat 5 years ECHOCARDIOGRAM 03/23/2018 LVEF 60%; stage I diastolic dysfxn; mild MR, mild TR ECHOCARDIOGRAM 03/23/2019 normal LV systolic fxn; LVEF 60%; normal LA size; mild MR, TR ECHOCARDIOGRAM 08/08/2019 normal LV systolic fxn; LVEF 55%; normal LA size; 1-2+ MR; 1+ TR EGD TRANSORAL BIOPSY SINGLE/MULTIPLE 08/30/2006 HOLTER MONITOR 01/17/2019 nearly 100% AF; average HR 81 bpm HOLTER MONITOR 24 HRS 08/08/2019 sinus rhythm; PVCs; rare PACs; no AF INSERT INTRACORONARY STENT 11/25/2020 PCI stent to mid LAD; PTCA to D1; [facility] LAP ADJUSTABLE GASTRIC BAND lapband 2006 released when diagnosed with breast cancer LIG/TRNSXJ FLP TUBE ABDL/VAG APPR UNI/BI Tubal ligation LUMPECTOMY/RADIOTHERAPY DIAG MAMM/A10 02/2008 right breast lumpectomy TONSILLECTOMY HX TONSILLECTOMY PRIMARY/SECONDARY <AGE 12 Tonsillectomy XCAPSL CTRC RMVL INSJ IO LENS PROSTH W/O ECP 07/23/2011 Cataract Extraction with PC IOL (Restor) left eye XCAPSL CTRC RMVL INSJ IO LENS PROSTH W/O ECP 08/04/2011 Cataract Extraction with PC IOL (Restor) right eye Allergies: ALLERGIES No Known Allergies Medications: ELIQUIS 5 mg tab(s) Take 5 mg by mouth twice daily. carboxymethylcellulose (REFRESH) 0.5 % drop Use in eyes. FLUoxetine (PROZAC) 40 mg capsule Take 40 mg by mouth once daily. aspirin, enteric coated (ASPIRIN, ENTERIC COATED) 81 mg EC tablet Take 81 mg by mouth once daily. fidaxomicin (DIFICID) 200 mg tablet Take 200 mg by mouth twice daily. Cholecalciferol, Vitamin D3, 50 mcg (2,000 unit) cap Take by mouth. metoprolol tartrate, short acting, (LOPRESSOR) 25 mg tablet Take 12.5 mg by mouth twice daily. propylene glycol (SYSTANE BALANCE) 0.6 % drop Use 1 Drop in both eyes four times daily. atorvastatin calcium(LIPITOR 10 MG TAB) Take one(1) tablet daily. acetaminophen(TYLENOL 325 MG TAB) Take two(2) tablets every four(4) to six(6) hours as needed for pain. albuterol HFA (PROVENTIL HFA, VENTOLIN HFA) 90 mcg/actuation inhaler INHALE 2 PUFFS 6 (SIX) TIMES DAILY NEEDED FOR SHORTNESS OF BREATH / COUGH FAMILY HISTORY Problem Relation Age of Onset Breast Cancer Mother 68 Treated with lumpectomy only Colon Cancer Father 68 of metastatic colon cancer Heart disease Father No Known Problems Sister No Known Problems Sister Emphysema Sister No Known Problems Brother No Known Problems Brother Heart Attack Brother 62 suddenly (arrest) Diabetes Brother other (cerebral hemmorhage) Maternal Grandmother other (poisoning) Maternal Grandfather Breast Cancer Paternal Grandmother No Known Problems Paternal Grandfather 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 HENT: Positive for hearing loss and voice change. Respiratory: Positive for cough and shortness of breath. Gastrointestinal: Positive for abdominal pain and diarrhea. Change in Bowel Habits All other systems reviewed and are negative. Are you taking any blood thinners? Yes, Eliquis Physical Examination: BP 118/70 Pulse 79 Ht 5' 2 (1.58m) Wt 0 lb (0.0kg) Physical Exam Constitutional: Appearance: Normal appearance. She is obese. HENT: Head: Normocephalic and atraumatic. Nose: Nose normal. Eyes: General: No scleral icterus. Extraocular Movements: Extraocular movements intact. Conjunctiva/sclera: Conjunctivae normal. Pupils: Pupils are equal, round, and reactive to light. Cardiovascular: Rate and Rhythm: Normal rate and regular rhythm. Pulses: Normal pulses. Heart sounds: Normal heart sounds. Pulmonary: Effort: Pulmonary effort is normal. Breath sounds: Normal breath sounds. Abdominal: General: Abdomen is flat. Bowel sounds are normal. Palpations: Abdomen is soft. Tenderness: There is no abdominal tenderness. Musculoskeletal: General: Normal range of motion. Cervical back: Normal range of motion and neck supple. Comments: Wheel chair bound Skin: General: Skin is warm and dry. Coloration: Skin is not jaundiced. Neurological: General: No focal deficit present. Mental Status: She is alert and oriented to person, place, and time. Psychiatric: Mood and Affect: Mood normal. Behavior: Behavior normal. Thought Content: Thought content normal. Judgment: Judgment normal. Assessment/Plan (A49.8) Recurrent Clostridioides difficile infection (primary encounter diagnosis) (K57.92) Diverticulitis 1. Recurrent Clostridioides difficile infection -- Patient has been treated for C diff with Vanco, Vanco taper, Dificid x2 and monoclonal AB by ID at [facility]. Currently on second round of Dificid x14 days. On day 7. Notes improvement with diarrhea. -- advised patient to reach out if diarrhea returns after finishing Dificid. Need repeat C diff testing. ?+toxin -- Will send patient to see the C diff clinic as well - CONSULT TO GASTROENTEROLOGY; Future 2. Diverticulitis -- Feeling well today. Did have some LLQ pain yesterday but this has subsided. -- Will need colonoscopy once C diff clears Follow up in office PRN. Recommended to please call office/go to ER if fever, chills, chest pain, SOB, diarrhea, nausea, emesis, worsening abdominal pain, dehydration occurs I spent 25 minutes in the visit, with more than 50% of the total [id number] time of the visit in counseling / coordination of care. I have confirmed and edited as necessary, the PFSH and ROS obtained by others. 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 Evaluation Date: 02/03/2022 Last Visit in Rheumatology: 09/11/2021 (with Amor Esocbar) ACTIVE PROBLEM LIST Coronary Artery Disease Involving [employer] [place] Coronary Artery of [place] Heart Without Angina Pectoris - 08/20/2021 History of Appendectomy - 08/20/2021 History of Bariatric Surgery - 08/20/2021 History of Cataract Extraction - 08/20/2021 History of Tonsillectomy - 08/20/2021 Granulomatosis With Polyangiitis (Hcc) - 07/22/2021 Persistent Atrial Fibrillation (Hcc) - 05/15/2019 Status Post Catheter Ablation of Atrial Fibrillation Comment: balloon catheter cryoablation atrial fibrillation PVAI 05/15/2019 Obesity, Class I, Bmi 30-34.9 - 03/19/2019 At Risk for Stroke Comment: [id number] = 3 (HTN, age, female gender) Anticoagulant Long-Term Use Comment: apixaban (Eliquis); indication: stroke prevention AF Palpitations - 03/14/2019 Nonrheumatic Mitral (Valve) Insufficiency - 03/14/2019 Nonrheumatic Tricuspid (Valve) Insufficiency - 03/14/2019 History of Colonic Polyps - 07/24/2018 Comment: Added automatically from request for surgery [id number] Family History of Colon Cancer in Father - 07/24/2018 Comment: Added automatically from request for surgery [id number] Punctate Keratitis, Bilateral - 08/31/2017 Personal History of Breast Cancer - 01/24/2017 Shortness of Breath - 10/27/2016 Essential Hypertension - 10/27/2016 Vitreous Floaters of Both Eyes - 08/26/2016 Dry Eye Syndrome of Both Eyes - 08/26/2016 Pseudophakia of Both Eyes - 08/22/2015 Hyperlipidemia - 08/28/2014 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 - 08/30/2006 INTERVAL HX: At today's visit Karen Falk states that she has been feeling well. She was admitted in Dec 2020 for diverticulitis and C.diff colitis, completed vancomycin treatment later switched to fidaxomicin last Tuesday. Her stools are still watery but mixed with some formed debris, less frequent, about 2 bowel movements past 3-4 days. No melena or hematochezia. Infectious disease is planning to start a type of monoclonal abs infusion next week. ?Bezlotoxumab. Her prednisone and Bactrim have been held since C.diff colitis diagnosis. No nasal bleeding, sinus congestion or pain, eye inflammation, dysphagia, or voice change, cough or rash. No new hearing loss. Breathing stable, uses oxygen 2LPM prn. Neuropathy in her hands and feet are stable. SMALL/MEDIUM VESSEL VASCULITIS ROS: GENERAL: negative for, malaise, fatigue FEVER: none WEIGHT CHANGE: none ENT: negative for, nasal crusting, sore throat EYES: negative for , pain, redness, visual blurring, permanent visual loss, transient visual loss, diplopia, proptosis RESPIRATORY: negative for, cough, sputum production, hemoptysis, wheezing CARDIOVASCULAR: chest pain, peripheral edema GASTROINTESTINAL: vomiting URINARY: negative for, dysuria, hematuria MUSCULOSKELETAL: negative for, joint pain, joint swelling NEUROLOGIC: negative for, new numbness or weakness SKIN: negative for, rash, nodules, ulcers, soft tissue loss Current Outpatient Medications Medication Sig ciprofloxacin HCl (CIPRO) 500 mg tablet Take 500 mg by mouth twice daily. fidaxomicin (DIFICID) 200 mg tablet Take 200 mg by mouth twice daily. albuterol HFA (PROVENTIL HFA, VENTOLIN HFA) 90 mcg/actuation inhaler INHALE 2 PUFFS 6 (SIX) TIMES DAILY NEEDED FOR SHORTNESS OF BREATH / COUGH Cholecalciferol, Vitamin D3, 50 mcg (2,000 unit) cap Take by mouth. metoprolol tartrate, short acting, (LOPRESSOR) 25 mg tablet Take 12.5 mg by mouth twice daily. propylene glycol (SYSTANE BALANCE) 0.6 % drop Use 1 Drop in both eyes four times daily. atorvastatin calcium(LIPITOR 10 MG TAB) Take one(1) tablet daily. acetaminophen(TYLENOL 325 MG TAB) Take two(2) tablets every four(4) to six(6) hours as needed for pain. predniSONE (DELTASONE) 2.5 mg tablet Take 1 tablet by mouth once daily. (Patient not taking: Reported on 02/03/2022 ) predniSONE (DELTASONE) 5 mg tablet Take 3 tablets by mouth once daily for 14 days, THEN 2 tablets once daily for 14 days, THEN 1 tablet once daily. (Patient not taking: Reported on 02/03/2022) predniSONE (DELTASONE) 10 mg tablet Take 2 tablets by mouth once daily. (Patient not taking: Reported on 02/03/2022 ) POLY-IRON 150 mg iron capsule Take 150 mg by mouth once daily. (Patient not taking: Reported on 02/03/2022 ) clopidogrel (PLAVIX) 75 mg tablet Take 75 mg by mouth once daily. (Patient not taking: Reported on 02/03/2022 ) THERAPEUTIC MULTIVITAMIN TAB Take one(1) tablet daily. (Patient not taking: ) No current facility-administered medications for this visit. PHYSICAL EXAMINATION Blood pressure 116/67, pulse 82, temperature 36.3 C (97.3 F), temperature source Temporal, height 157.5 cm (5' 2 ), weight 76.2 kg (168 lb). GENERAL APPEARANCE: well SKIN: normal without rashes or lesions EYES: conjunctiva clear, PERRL, EOM normal EARS: External ears normal, TM's normal NOSE/SINUSES: normal OROPHARYNX: no oral lesions present, no oral ulcers. LUNGS: clear HEART: RRR, no gallops, rubs or murmurs ABDOMEN: soft, non-tender, normal BS, no organomegaly or masses MUSCULOSKELETAL: normal NEURO: normal Lab results: WBC Date Value Ref Range Status 11/16/2021 8.23 3.70 - 11.00 k/uL Final Hemoglobin Date Value Ref Range Status 11/16/2021 11.9 11.5 - 15.5 g/dL Final Hematocrit Date Value Ref Range Status 11/16/2021 37.5 36.0 - 46.0 % Final Platelet Count Date Value Ref Range Status 11/16/2021 343 150 - 400 k/uL Final Abs Lymph Date Value Ref Range Status 11/16/2021 1.53 1.00 - 4.00 k/uL Final Creatinine Date Value Ref Range Status 11/16/2021 0.77 0.58 - 0.96 mg/dL Final Glucose Date Value Ref Range Status 11/16/2021 116 (H) 74 - 99 mg/dL Final Comment: The [place] Diabetes Association (ADA) provides guidance for cutoff values for fasting glucose and random glucose. The ADA defines fasting as no caloric intake for at least 8 hours. Fasting plasma glucose results between 100 to 125 mg/dL indicate increased risk for diabetes (prediabetes). Fasting plasma glucose results greater than or equal to 126 mg/dL meet the criteria for diagnosis of diabetes. In the absence of unequivocal hyperglycemia, results should be confirmed by repeat testing. In a patient with classic symptoms of hyperglycemia or hyperglycemic crisis, random plasma glucose results greater than or equal to 200 mg/dL meet the criteria for diagnosis of diabetes. Reference: Standards of Medical Care in Diabetes 2016, [place] [employer] Association. Diabetes Care. 2016.39(Suppl 1). AST Date Value Ref Range Status 11/16/2021 16 13 - 35 U/L Final ALT Date Value Ref Range Status 11/16/2021 9 7 - 38 U/L Final WSR Date Value Ref Range Status 11/16/2021 52 (H) 0 - 20 mm/hr Final Alkaline Phosphatase Date Value Ref Range Status 11/16/2021 90 34 - 123 U/L Final Urine: Specific [place], Ur Date Value Ref Range Status 11/15/2021 1.019 1.005 - 1.030 Final Glucose, Urine Date Value Ref Range Status 11/15/2021 Negative Negative mg/dL Final Bilirubin, Urine Date Value Ref Range Status 11/15/2021 Negative Negative Final Ketones, Urine Date Value Ref Range Status 11/15/2021 Negative Negative Final Hemoglobin/Blood,Ur Date Value Ref Range Status 11/15/2021 Negative Negative Final Protein, Urine Date Value Ref Range Status 11/15/2021 Negative Negative Final WBC, Urine Date Value Ref Range Status 11/15/2021 0-5 0 - 5 /HPF Final ASSESSMENT: 1. 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 urine sed today - normal Available laboratories were reviewed with the patient. PLAN: Postpone her soon-due rituximab infusion for 4 weeks until her C.diff colitis is resolved. She may only need 1 infusion for maintenance therapy. Continue to hold prednisone and bactrim until she completes C.diff treatment. Check CBC, CMP, ESR. Orders: Labs Consults: none Monitoring: Continue monthly labs Patient instructed to notify provider of any changes in medical condition. Follow-up: 4 months Robin Gomez MD PGY-5 [facility] Rheumatology fellow. RHEUMATOLOGY STAFF: I have reviewed the history and physical examination obtained and documented by the fellow and I personally participated in the gonzalez components. I have discussed the case and management of the patient's care with the fellow . [place] note was revised, edited and confirmed. Assessment and plan discussed with patient I spent a total of 40 minutes on the date of the service which included preparing to see the patient, [id number] patient care, completing clinical documentation, obtaining and/or reviewing separately obtained history, performing a medically appropriate examination, counseling and educating the patient/family/caregiver, ordering medications, tests, or procedures and independently interpreting results (not separately reported). Amor Guzman MD, MPH documented in this encounter [facility] 01-29-2022 Miscellaneous Notes Received outside office note from [facility] dated 01/28/2022. Scanned to chart and forwarded to doctor for review. documented in this encounter [facility] 01-28-2022 Miscellaneous Notes Phone call to patient. She has an appointment with ID today. Dr. Ware at [facility]. Asked patient to have Dr office fax note or any findings to Dr. Guzman's office so she can decide plan of care. Did not cancel future appointments with Dr. Guzman or infusions yet. Navya Yu RN please call patient to get more information and ask what kind of advise she would like, what questions she may have thanks Patient unable to get colonoscopy prior to appointment and patient still has CDiff. [phone] PLEASE ADVISE documented in this encounter [facility] 08-21-2021 Note HNO ID: [id number] Author: Mando Reid MD Service: ? Author Type: Physician Type: Progress Notes Filed: 08/21/2021 6:56 PM Note Text: PRIMARY CARE PHYSICIAN: Eugene Alfonso MD [id number] [address] Patient Care Team: Eugene Alfonso as PCP - General (Gerontology) Adarsh Man as Specialty Cellar Packer (Cardiology) Mando Reid MD as Specialty Cellar Packer (Cardiology) Mando Rae V as Referring (Internal Medicine) Amor Escobar MD as Specialty Cellar Packer (Rheumatology) CHIEF COMPLAINT: Follow up for arrhythmia HISTORY OF PRESENT ILLNESS: Ms. Falk is a 71 year old female who presents today for a cardiovascular medicine follow-up visit. History copied from previous notes, edited as needed: Dr. Reid's office notes 03/19/2019:?Ms. Falk is a?68 year old female who presents today for evaluation of atrial fibrillation (AF). She states that she was diagnosed with atrial fibrillation in about 2007. She recalls that this occurred at a time that she was being treated with chemotherapy for breast cancer. She was experiencing notations and rapid heartbeats she recalls being treated with Coumadin. She believes that the arrhythmia spontaneously resolved. A couple of years later she was found again to have atrial fibrillation. At that time she was feeling fatigue and tired all of the time. At some point she had been treated with a beta rogelio medication (metoprolol) and her fatigue improved but did not resolve with discontinuation of the beta rogelio and instead treatment with a calcium channel rogelio. Over the years she states that she does not recall being told that she was in atrial fibrillation very often. More recently, she has experienced substantial exertional shortness of breath even with walking at the grocery store or walking up one flight of stairs. Cardiac monitoring revealed nearly constant atrial fibrillation. She does not feel well and believes that the atrial fibrillation is negatively impacting her quality of life. She denies chest pain, orthopnea, PND, lightheadedness or syncope. IMPRESSION (03/2019):?Ms. Falk?has atrial fibrillation that in the past was apparently paroxysmal according to her description, but more recently has become more persistent. She has substantial and excessively bothersome symptoms including exertional shortness of breath, effort intolerance and fatigue that she attributes to the atrial fibrillation. Medical therapy and in particular very appropriate ventricular rate control has failed to control her symptoms. She desires more definitive therapy. I discussed with her the options for atrial rhythm control, that being either an antiarrhythmic drug or catheter ablation. I discussed the pros and cons of these options in detail. From the available medical records does not appear that she has substantial cardiomyopathy or severe LVH that would contraindicate the class IC antiarrhythmic drugs for example. She did not tolerate therapy with a beta rogelio, so she would not likely tolerate several of the antiarrhythmic drugs including propafenone, sotalol, or even perhaps amiodarone. She is very interested in the option of AF catheter ablation. She has a friend who underwent some type of ablation procedure and has done well. I had a detailed discussion with her about this option and her medical treatment options. She favors AF catheter ablation and I feel that she could be a very appropriate candidate for this procedure. I do not have the report of the 2018 echocardiogram to review the left atrial dimensions. I did tell her that I have some concern as to how long she has been in persistent atrial fibrillation, and that if she has severe left atrial enlargement this could indicate atrial cardiomyopathy that would make challenging the mormon and particularly maintenance of sinus rhythm. I told her that I would have my office obtain the report of that echocardiogram for my review. Overall, however I do believe that she would be an appropriate candidate for catheter ablation, and she very much desires this treatment rather than additional medical therapies. Again, as stated above my only concern would be if she has been in AF or most of the time in AF over a period of several years there might be substantial challenge to keep her in sinus rhythm by any means. PLAN AND RECOMMENDATIONS (03/2019): My office will be contacting Ms. Falk to schedule the AF catheter ablation procedure. I will also obtain the report of the echocardiogram from Dr. Man's office. Additional History Dr. Reid?08/31/2019:?.?Deya? presents for follow-up evaluation. She underwent catheter ablation for atrial fibrillation May 2019. She states that since that procedure she has not been aware of recurrent arrhythmia. She feels well and is very pleased with this (more content not included)... [facility] 02-10-2021 Note HNO ID: [id number] Author: Eidn Worley Service: ? Author Type: Physician Type: Progress Notes Filed: 02/11/2021 1:26 PM Note Text: Consult H AND P Karen Falk is a 70 year old female here for thoracic surgery evaluation for unusual appearing changes in the right chest, one of which is suspicious on PET scan and the other which is borderline suspicious on recent PET scan. HPI: The patient has a complicated recent and distant past medical history. The patient apparently presented to the medical attention with a cough in September 2020 sometimes with greenish sputum but mostly a dry cough. She developed right sided pleuritic chest pain and the cough and pleuritic chest pain worsened and she was taken to the emergency room in [place] in November 2020. She was diagnosed and treated for pneumonia, pleurisy, and pericarditis along with the finding one night in the hospital of an acute STEMI which apparently resulted in a drug-eluting stent being placed in the anterior descending coronary according to the patient's chart. She had continued recurrent problems with breathing, cough and some pleuritic pain and was again in the emergency room in December 2020. During that admission she underwent a CTA of the chest which showed no changes in the great vessels. She had no change in a 1 cm noncalcified nodule in the posterior lateral aspect of the apex of the left lung. Another 1.2 cm cavitary nodule in the posterior aspect of the left upper lobe, no change in a 1 cm noncalcified nodule in the posterior right upper lobe apparently unchanged. There was felt to be some atelectasis or changes in the azygo- esophageal recess. There is an area of atelectasis possible residual pneumonia consolidation not quite masslike in appearance, in the lower right posterior medial lung as well. She underwent a PET scan about January 13, 2021 which showed some increased uptake in the posterior medial lung the right lower lobe with a SUV of 2.6. The diameter in the area of this partially cavitated density was 19.5 mm. In the subcarinal posterior mediastinum towards the right there was a SUV of 3.6 which is borderline quantitative criteria not fulfilled. Several other additional foci in the bilateral hemothoraces were not abnormal. She does have a history of breast cancer which she had lumpectomy chemotherapy radiation therapy, but her oncologist does not feel that she has a recurrence of this at this time. Breast cancer was apparently in 2007. Regarding the current findings in the right chest, she has no hemoptysis and no weight loss other than that associated with her initial illness in November and December of this year. Her weight has been stable in January. Additionally, she was on dual antiplatelet therapy of what sounded like aspirin and Brilinta, but developed a nosebleed and apparently aspirin was stopped. The Brilinta is going to be changed to Plavix by her service inspector Dr. Man by her report. She is not on Eliquis currently but was on it previously for A. fib and status post A. fib ablation. She notes that her A. fib seems to have settled down. MEDICATIONS: Current Outpatient Medications Medication Sig Dispense Refill - BRILINTA 90 mg tablet Take 90 mg by mouth twice daily. - citalopram hydrobromide (CELEXA) 10 mg tablet Take 10 mg by mouth once daily. - metoprolol tartrate, short acting, (LOPRESSOR) 25 mg tablet Take 12.5 mg by mouth twice daily. - colchicine 0.6 mg tablet Take 0.6 mg by mouth once daily. - predniSONE (DELTASONE) 10 mg tablet Take 3 tablets by mouth once daily for 5 days, THEN 2 tablets once daily for 5 days, THEN 1 tablet once daily for 5 days. 30 tablet 0 - propylene glycol (SYSTANE BALANCE) 0.6 % drop Use 1 Drop in both eyes four times daily. - atorvastatin calcium(LIPITOR 10 MG TAB) Take one(1) tablet daily. 0 - acetaminophen(TYLENOL 325 MG TAB) Take two(2) tablets every four(4) to six(6) hours as needed for pain. 0 - THERAPEUTIC MULTIVITAMIN TAB Take one(1) tablet daily. 0 No current facility-administered medications for this visit. ALLERGIES No Known Allergies Past medical history is positive for history of gastritis, A. fib requiring cardioversions and ablation, breast cancer as noted above in 2007, diaphragmatic hernia, history of diverticulosis, some reflux, she has been on a statin for a number of years presumably for cholesterol, some history of mitral valve insufficiency and tricuspid insufficiency on the chart. She may have osteoporosis. She has an undiagnosed illness will which over the last 4 years has been remarkable for progressive generalized weakness, fatigability, and associated shortness of breath and no diagnosis has been established. Asked if she had seen a neurologist and she said not to her knowledge. For the last 3 to 4 months she essentially gets around in a wheelchair if she leaves the home and in the home she gets jj (more content not included)... [facility] documented as of this encounter (statuses as of 06/03/2023) [facility] History of Past illness Narrative* Problem Noted Date Diagnosed Date Resolved Date Persistent atrial fibrillation 05/15/2019 05/31/2023 Paroxysmal atrial fibrillation 03/14/2019 05/15/2019 Obstructive sleep apnea 08/30/201808/07 Colon cancer screening 09/11/201509/11 Floater, vitreous 08/22/2015 08/26/2016 Dry eye syndrome 08/22/2015 08/26/2016 Tear film insufficiency, uns pecified - Both Eyes 08/28/2014 08/26/2016 Lens replaced by other means - Both Eyes 08/28/2014 08/26/2016 Other vitreous opacities - Both Eyes 08/28/2014 08/26/2016 Breast cancer, stage 4 09/16/200910/27 Acute gastritis without mention of hemorrhage 08/30/20 06 05/15/2019 documented as of this encounter (statuses as of 07/08/2023) [facility] History of Past illness Narrative* Problem Noted Date Diagnosed Date Resolved Date Persistent atrial fibrillation 05/15/2019 05/31/2023 Paroxysmal atrial fibrillation 03/14/2019 05/15/2019 Obstructive sleep apnea 08/30/201808/07 Colon cancer screening 09/11/201509/11 Floater, vitreous 08/22/2015 08/26/2016 Dry eye syndrome 08/22/2015 08/26/2016 Tear film insufficiency, uns pecified - Both Eyes 08/28/2014 08/26/2016 Lens replaced by other means - Both Eyes 08/28/2014 08/26/2016 Other vitreous opacities - Both Eyes 08/28/2014 08/26/2016 Breast cancer, stage 4 09/16/200910/27 Acute gastritis without mention of hemorrhage 08/30/20 06 05/15/2019 documented as of this encounter (statuses as of 09/11/2023) [facility] History of Past illness Narrative* Problem Noted Date Diagnosed Date Resolved Date Persistent atrial fibrillation 05/15/2019 05/31/2023 Paroxysmal atrial fibrillation 03/14/2019 05/15/2019 Obstructive sleep apnea 08/30/201808/071 Colon cancer screening 09/11/201509/11 Floater, vitreous 08/22/2015 08/26/2016 Dry eye syndrome 08/22/2015 08/26/2016 Tear film insufficiency, uns pecified - Both Eyes 08/28/2014 08/26/2016 Lens replaced by other means - Both Eyes 08/28/2014 08/26/2016 Other vitreous opacities - Both Eyes 08/28/2014 08/26/2016 Breast cancer, stage 4 09/16/200910/27 Acute gastritis without mention of hemorrhage 08/30/2005/15/2019 documented as of this encounter (statuses as of 09/11/2023) [facility] History of Past illness Narrative* Problem Noted Date Resolved Date Paroxysmal atrial fibrillation 03/14/2019 0 05/15/2019 Obstructive sleep apnea 08/30/2018 08/20/20 Colon cancer screening 09/11/2015 5 Floater, vitreous 08/22/2015 08/26/2016 Dry eye syndrome 08/22/2015 08/26/2016 Tear film insufficiency, unspecified - Both Eyes 08/28/2014 08/26/2016 Lens replaced by other means - Both Eyes 014 08/26/2016 Other vitreous opacities - Both Eyes 08/28/2014 08/26/2016 Breast cancer, stage 4 09/16/2009 5 Acute gastritis without mention of hemorrhage 05/15/2019 documented as of this encounter (statuses as of 01/28/2022) [facility] History of Past illness Narrative* Problem Noted Date Resolved Date Paroxysmal atrial fibrillation 03/14/2019 0 05/15/2019 Obstructive sleep apnea 08/30/2018 08/20/20 21 Colon cancer screening 09/11/2015 5 Floater, vitreous 08/22/2015 08/26/2016 Dry eye syndrome 08/22/2015 08/26/2016 Tear film insufficiency, unspecified - Both Eyes 08/28/2014 08/26/2016 Lens replaced by other means - Both Eyes 014 08/26/2016 Other vitreous opacities - Both Eyes 08/28/2014 08/26/2016 Breast cancer, stage 4 09/16/2009 5 Acute gastritis without mention of hemorrhage 05/15/2019 documented as of this encounter (statuses as of 01/29/2022) [facility] History of Past illness Narrative* Problem Noted Date Resolved Date Paroxysmal atrial fibrillation 03/14/2019 0 05/15/2019 Obstructive sleep apnea 08/30/2018 08/20/20 Colon cancer screening 09/11/2015 5 Floater, vitreous 08/22/2015 08/26/2016 Dry eye syndrome 08/22/2015 08/26/2016 Tear film insufficiency, unspecified - Both Eyes 08/28/2014 08/26/2016 Lens replaced by other means - Both Eyes 014 08/26/2016 Other vitreous opacities - Both Eyes 08/28/2014 08/26/2016 Breast cancer, stage 4 09/16/2009 5 Acute gastritis without mention of hemorrhage 05/15/2019 documented as of this encounter (statuses as of 02/09/2022) [facility] History of Past illness Narrative* Problem Noted Date Resolved Date Paroxysmal atrial fibrillation 03/14/2019 0 05/15/2019 Obstructive sleep apnea 08/30/2018 08/20/20 21 Colon cancer screening 09/11/2015 5 Floater, vitreous 08/22/2015 08/26/2016 Dry eye syndrome 08/22/2015 08/26/2016 Tear film insufficiency, unspecified - Both Eyes 08/28/2014 08/26/2016 Lens replaced by other means - Both Eyes 014 08/26/2016 Other vitreous opacities - Both Eyes 08/28/2014 08/26/2016 Breast cancer, stage 4 09/16/2009 5 Acute gastritis without mention of hemorrhage 05/15/2019 documented as of this encounter (statuses as of 02/10/2022) [facility] History of Past illness Narrative* Problem Noted Date Resolved Date Paroxysmal atrial fibrillation 03/14/2019 0 05/15/2019 Obstructive sleep apnea 08/30/2018 08/20/20 21 Colon cancer screening 09/11/2015 5 Floater, vitreous 08/22/2015 08/26/2016 Dry eye syndrome 08/22/2015 08/26/2016 Tear film insufficiency, unspecified - Both Eyes 08/28/2014 08/26/2016 Lens replaced by other means - Both Eyes 014 08/26/2016 Other vitreous opacities - Both Eyes 08/28/2014 08/26/2016 Breast cancer, stage 4 09/16/2009 5 Acute gastritis without mention of hemorrhage 05/15/2019 documented as of this encounter (statuses as of 02/12/2022) [facility] History of Past illness Narrative* Problem Noted Date Resolved Date Paroxysmal atrial fibrillation 03/14/2019 0 05/15/2019 Obstructive sleep apnea 08/30/2018 08/20/20 Colon cancer screening 09/11/2015 5 Floater, vitreous 08/22/2015 08/26/2016 Dry eye syndrome 08/22/2015 08/26/2016 Tear film insufficiency, unspecified - Both Eyes 08/28/2014 08/26/2016 Lens replaced by other means - Both Eyes 014 08/26/2016 Other vitreous opacities - Both Eyes 08/28/2014 08/26/2016 Breast cancer, stage 4 09/16/2009 5 Acute gastritis without mention of hemorrhage 05/15/2019 documented as of this encounter (statuses as of 02/25/2022) [facility] History of Past illness Narrative* Problem Noted Date Resolved Date Paroxysmal atrial fibrillation 03/14/2019 0 05/15/2019 Obstructive sleep apnea 08/30/2018 08/20/20 Colon cancer screening 09/11/2015 5 Floater, vitreous 08/22/2015 08/26/2016 Dry eye syndrome 08/22/2015 08/26/2016 Tear film insufficiency, unspecified - Both Eyes 08/28/2014 08/26/2016 Lens replaced by other means - Both Eyes 014 08/26/2016 Other vitreous opacities - Both Eyes 08/28/2014 08/26/2016 Breast cancer, stage 4 09/16/2009 5 Acute gastritis without mention of hemorrhage 05/15/2019 documented as of this encounter (statuses as of 02/25/2022) [facility] History of Past illness Narrative* Problem Noted Date Resolved Date Paroxysmal atrial fibrillation 03/14/2019 0 05/15/2019 Obstructive sleep apnea 08/30/2018 08/20/20 Colon cancer screening 09/11/2015 5 Floater, vitreous 08/22/2015 08/26/2016 Dry eye syndrome 08/22/2015 08/26/2016 Tear film insufficiency, unspecified - Both Eyes 08/28/2014 08/26/2016 Lens replaced by other means - Both Eyes 014 08/26/2016 Other vitreous opacities - Both Eyes 08/28/2014 08/26/2016 Breast cancer, stage 4 09/16/2009 5 Acute gastritis without mention of hemorrhage 05/15/2019 documented as of this encounter (statuses as of 03/19/2022) [facility] History of Past illness Narrative* Problem Noted Date Resolved Date Paroxysmal atrial fibrillation 03/14/2019 0 05/15/2019 Obstructive sleep apnea 08/30/2018 08/20/20 Colon cancer screening 09/11/2015 5 Floater, vitreous 08/22/2015 08/26/2016 Dry eye syndrome 08/22/2015 08/26/2016 Tear film insufficiency, unspecified - Both Eyes 08/28/2014 08/26/2016 Lens replaced by other means - Both Eyes 014 08/26/2016 Other vitreous opacities - Both Eyes 08/28/2014 08/26/2016 Breast cancer, stage 4 09/16/2009 5 Acute gastritis without mention of hemorrhage 05/15/2019 documented as of this encounter (statuses as of 04/01/2022) [facility] History of Past illness Narrative* Problem Noted Date Resolved Date Paroxysmal atrial fibrillation 03/14/2019 0 05/15/2019 Obstructive sleep apnea 08/30/2018 08/20/20 Colon cancer screening 09/11/2015 5 Floater, vitreous 08/22/2015 08/26/2016 Dry eye syndrome 08/22/2015 08/26/2016 Tear film insufficiency, unspecified - Both Eyes 08/28/2014 08/26/2016 Lens replaced by other means - Both Eyes 014 08/26/2016 Other vitreous opacities - Both Eyes 08/28/2014 08/26/2016 Breast cancer, stage 4 09/16/2009 5 Acute gastritis without mention of hemorrhage 05/15/2019 documented as of this encounter (statuses as of 04/01/2022) [facility] of Past illness Narrative* Problem Noted Date Resolved Date Paroxysmal atrial fibrillation 03/14/2019 0 05/15/2019 Obstructive sleep apnea 08/30/2018 08/20/20 Colon cancer screening 09/11/2015 5 Floater, vitreous 08/22/2015 08/26/2016 Dry eye syndrome 08/22/2015 08/26/2016 Tear film insufficiency, unspecified - Both Eyes 08/28/2014 08/26/2016 Lens replaced by other means - Both Eyes 014 08/26/2016 Other vitreous opacities - Both Eyes 08/28/2014 08/26/2016 Breast cancer, stage 4 09/16/2009 5 Acute gastritis without mention of hemorrhage 05/15/2019 documented as of this encounter (statuses as of 04/17/2022) [facility] of Past illness Narrative* Problem Noted Date Resolved Date Paroxysmal atrial fibrillation 03/14/2019 0 05/15/2019 Obstructive sleep apnea 08/30/2018 08/20/20 21 Colon cancer screening 09/11/2015 5 Floater, vitreous 08/22/2015 08/26/2016 Dry eye syndrome 08/22/2015 08/26/2016 Tear film insufficiency, unspecified - Both Eyes 08/28/2014 08/26/2016 Lens replaced by other means - Both Eyes 014 08/26/2016 Other vitreous opacities - Both Eyes 08/28/2014 08/26/2016 Breast cancer, stage 4 09/16/2009 5 Acute gastritis without mention of hemorrhage 05/15/2019 documented as of this encounter (statuses as of 04/23/2022) [facility] History of Past illness Narrative* Problem Noted Date Resolved Date Paroxysmal atrial fibrillation 03/14/2019 0 05/15/2019 Obstructive sleep apnea 08/30/2018 08/20/20 Colon cancer screening 09/11/2015 5 Floater, vitreous 08/22/2015 08/26/2016 Dry eye syndrome 08/22/2015 08/26/2016 Tear film insufficiency, unspecified - Both Eyes 08/28/2014 08/26/2016 Lens replaced by other means - Both Eyes 014 08/26/2016 Other vitreous opacities - Both Eyes 08/28/2014 08/26/2016 Breast cancer, stage 4 09/16/2009 5 Acute gastritis without mention of hemorrhage 05/15/2019 documented as of this encounter (statuses as of 04/28/2022) [facility] History of Past illness Narrative* Problem Noted Date Resolved Date Paroxysmal atrial fibrillation 03/14/2019 0 05/15/2019 Obstructive sleep apnea 08/30/2018 08/20/20 Colon cancer screening 09/11/2015 5 Floater, vitreous 08/22/2015 08/26/2016 Dry eye syndrome 08/22/2015 08/26/2016 Tear film insufficiency, unspecified - Both Eyes 08/28/2014 08/26/2016 Lens replaced by other means - Both Eyes 014 08/26/2016 Other vitreous opacities - Both Eyes 08/28/2014 08/26/2016 Breast cancer, stage 4 09/16/2009 5 Acute gastritis without mention of hemorrhage 05/15/2019 documented as of this encounter (statuses as of 06/26/2022) [facility] History of Past illness Narrative* Problem Noted Date Resolved Date Paroxysmal atrial fibrillation 03/14/2019 0 05/15/2019 Obstructive sleep apnea 08/30/2018 08/20/20 21 Colon cancer screening 09/11/2015 5 Floater, vitreous 08/22/2015 08/26/2016 Dry eye syndrome 08/22/2015 08/26/2016 Tear film insufficiency, unspecified - Both Eyes 08/28/2014 08/26/2016 Lens replaced by other means - Both Eyes 014 08/26/2016 Other vitreous opacities - Both Eyes 08/28/2014 08/26/2016 Breast cancer, stage 4 09/16/2009 5 Acute gastritis without mention of hemorrhage 05/15/2019 documented as of this encounter (statuses as of 09/22/2022) [facility] of Past illness Narrative* Problem Noted Date Resolved Date Paroxysmal atrial fibrillation 03/14/2019 0 05/15/2019 Obstructive sleep apnea 08/30/2018 08/20/20 21 Colon cancer screening 09/11/2015 5 Floater, vitreous 08/22/2015 08/26/2016 Dry eye syndrome 08/22/2015 08/26/2016 Tear film insufficiency, unspecified - Both Eyes 08/28/2014 08/26/2016 Lens replaced by other means - Both Eyes 014 08/26/2016 Other vitreous opacities - Both Eyes 08/28/2014 08/26/2016 Breast cancer, stage 4 09/16/2009 5 Acute gastritis without mention of hemorrhage 05/15/2019 documented as of this encounter (statuses as of 09/23/2022) [facility] of Past illness Narrative* Problem Noted Date Resolved Date Paroxysmal atrial fibrillation 03/14/2019 0 05/15/2019 Obstructive sleep apnea 08/30/2018 08/20/20 21 Colon cancer screening 09/11/2015 5 Floater, vitreous 08/22/2015 08/26/2016 Dry eye syndrome 08/22/2015 08/26/2016 Tear film insufficiency, unspecified - Both Eyes 08/28/2014 08/26/2016 Lens replaced by other means - Both Eyes 014 08/26/2016 Other vitreous opacities - Both Eyes 08/28/2014 08/26/2016 Breast cancer, stage 4 09/16/2009 5 Acute gastritis without mention of hemorrhage 05/15/2019 documented as of this encounter (statuses as of 09/28/2022) [facility] History of Past illness Narrative* Problem Noted Date Resolved Date Paroxysmal atrial fibrillation 03/14/2019 0 05/15/2019 Obstructive sleep apnea 08/30/2018 08/20/20 21 Colon cancer screening 09/11/2015 5 Floater, vitreous 08/22/2015 08/26/2016 Dry eye syndrome 08/22/2015 08/26/2016 Tear film insufficiency, unspecified - Both Eyes 08/28/2014 08/26/2016 Lens replaced by other means - Both Eyes 014 08/26/2016 Other vitreous opacities - Both Eyes 08/28/2014 08/26/2016 Breast cancer, stage 4 09/16/2009 5 Acute gastritis without mention of hemorrhage 05/15/2019 documented as of this encounter (statuses as of 10/13/2022) [facility] History of Past illness Narrative* Problem Noted Date Resolved Date Paroxysmal atrial fibrillation 03/14/2019 0 05/15/2019 Obstructive sleep apnea 08/30/2018 08/20/20 Colon cancer screening 09/11/2015 5 Floater, vitreous 08/22/2015 08/26/2016 Dry eye syndrome 08/22/2015 08/26/2016 Tear film insufficiency, unspecified - Both Eyes 08/28/2014 08/26/2016 Lens replaced by other means - Both Eyes 014 08/26/2016 Other vitreous opacities - Both Eyes 08/28/2014 08/26/2016 Breast cancer, stage 4 09/16/2009 5 Acute gastritis without mention of hemorrhage 05/15/2019 documented as of this encounter (statuses as of 10/13/2022) [facility] of Past illness Narrative* Problem Noted Date Resolved Date Paroxysmal atrial fibrillation 03/14/2019 0 05/15/2019 Obstructive sleep apnea 08/30/2018 08/20/20 21 Colon cancer screening 09/11/2015 5 Floater, vitreous 08/22/2015 08/26/2016 Dry eye syndrome 08/22/2015 08/26/2016 Tear film insufficiency, unspecified - Both Eyes 08/28/2014 08/26/2016 Lens replaced by other means - Both Eyes 014 08/26/2016 Other vitreous opacities - Both Eyes 08/28/2014 08/26/2016 Breast cancer, stage 4 09/16/2009 5 Acute gastritis without mention of hemorrhage 05/15/2019 documented as of this encounter (statuses as of 10/13/2022) [facility] of Past illness Narrative* Problem Noted Date Resolved Date Paroxysmal atrial fibrillation 03/14/2019 0 05/15/2019 Obstructive sleep apnea 08/30/2018 08/20/20 Colon cancer screening 09/11/2015 5 Floater, vitreous 08/22/2015 08/26/2016 Dry eye syndrome 08/22/2015 08/26/2016 Tear film insufficiency, unspecified - Both Eyes 08/28/2014 08/26/2016 Lens replaced by other means - Both Eyes 014 08/26/2016 Other vitreous opacities - Both Eyes 08/28/2014 08/26/2016 Breast cancer, stage 4 09/16/2009 5 Acute gastritis without mention of hemorrhage 05/15/2019 documented as of this encounter (statuses as of 11/13/2022) [facility] of Past illness Narrative* Problem Noted Date Resolved Date Paroxysmal atrial fibrillation 03/14/2019 0 05/15/2019 Obstructive sleep apnea 08/30/2018 08/20/20 Colon cancer screening 09/11/2015 5 Floater, vitreous 08/22/2015 08/26/2016 Dry eye syndrome 08/22/2015 08/26/2016 Tear film insufficiency, unspecified - Both Eyes 08/28/2014 08/26/2016 Lens replaced by other means - Both Eyes 014 08/26/2016 Other vitreous opacities - Both Eyes 08/28/2014 08/26/2016 Breast cancer, stage 4 09/16/2009 5 Acute gastritis without mention of hemorrhage 05/15/2019 documented as of this encounter (statuses as of 12/06/2022) [facility] Past illness Narrative* Problem Noted Date Resolved Date Paroxysmal atrial fibrillation 03/14/2019 0 05/15/2019 Obstructive sleep apnea 08/30/2018 08/20/20 Colon cancer screening 09/11/2015 5 Floater, vitreous 08/22/2015 08/26/2016 Dry eye syndrome 08/22/2015 08/26/2016 Tear film insufficiency, unspecified - Both Eyes 08/28/2014 08/26/2016 Lens replaced by other means - Both Eyes 014 08/26/2016 Other vitreous opacities - Both Eyes 08/28/2014 08/26/2016 Breast cancer, stage 4 09/16/2009 5 Acute gastritis without mention of hemorrhage 05/15/2019 documented as of this encounter (statuses as of 01/19/2023) [facility] Past illness Narrative* Problem Noted Date Resolved Date Paroxysmal atrial fibrillation 03/14/2019 0 05/15/2019 Obstructive sleep apnea 08/30/2018 08/20/20 Colon cancer screening 09/11/2015 5 Floater, vitreous 08/22/2015 08/26/2016 Dry eye syndrome 08/22/2015 08/26/2016 Tear film insufficiency, unspecified - Both Eyes 08/28/2014 08/26/2016 Lens replaced by other means - Both Eyes 014 08/26/2016 Other vitreous opacities - Both Eyes 08/28/2014 08/26/2016 Breast cancer, stage 4 09/16/2009 5 Acute gastritis without mention of hemorrhage 05/15/2019 documented as of this encounter (statuses as of 03/08/2023) [facility] illness Narrative* Problem Noted Date Resolved Date Paroxysmal atrial fibrillation 03/14/2019 0 05/15/2019 Obstructive sleep apnea 08/30/2018 08/20/20 21 Colon cancer screening 09/11/2015 5 Floater, vitreous 08/22/2015 08/26/2016 Dry eye syndrome 08/22/2015 08/26/2016 Tear film insufficiency, unspecified - Both Eyes 08/28/2014 08/26/2016 Lens replaced by other means - Both Eyes 014 08/26/2016 Other vitreous opacities - Both Eyes 08/28/2014 08/26/2016 Breast cancer, stage 4 09/16/2009 5 Acute gastritis without mention of hemorrhage 05/15/2019 documented as of this encounter (statuses as of 03/11/2023) [facility] [place] [facility] Diagnosis 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)- Primary Clostridium difficile colitis Intestinal infection due to clostridium difficile [facility] [place] [facility] Diagnosis Recurrent Clostridioides difficile infection- Primary Diverticulitis Diverticulitis of colon (without mention of hemorrhage) [facility] [place] [facility] Diagnosis Encounter for prophylactic measures, unspecified- Primary [facility] [place] [facility] Diagnosis Encounter for prophylactic measures, unspecified documented in this encounter [facility] note* Diagnosis 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)- Primary [facility] [place] [facility] Diagnosis 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)- Primary [facility] [place] [facility] Diagnosis 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)- Primary [facility] [place] [facility]* Diagnosis Punctate keratitis of both eyes- Primary Punctate keratitis Pseudophakia of both eyes Lens replaced by other means Essential hypertension Unspecified essential hypertension Hypercholesteremia Pure hypercholesterolemia documented in this encounter [facility] note* Diagnosis 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)- Primary [facility] [place] [facility] Diagnosis 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) Wheezing on expiration [facility] [place] [facility] Diagnosis Sensorineural hearing loss (SNHL), bilateral- Primary [facility] [place] [facility] Diagnosis 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) Postinflammatory pulmonary fibrosis Wheezing on expiration documented in this encounter [facility] note* Diagnosis Screening for osteoporosis Special screening for osteoporosis Asymptomatic menopause Encounter for screening for osteoporosis Special screening for osteoporosis documented in this encounter [facility] Summary Purpose Family History No Family History Records FoundNo Family History Records FoundNo Family History Records FoundNo Family History Records FoundNo Family History Records FoundNo Family History Records Found Advance Directives No Advanced Directives Records FoundDocuments on File Type Date 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 Advance Directive(s) 05/15/2019 6:56 AM Advance Directive(s) 10/09/2018 12:58 PM Advance Directive(s) 09/07/2018 7:18 AM Documents on File Type Date 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 Advance Directive(s) 05/15/2019 6:56 AM Advance Directive(s) 10/09/2018 12:58 PM Advance Directive(s) 09/07/2018 7:18 AM Reason for Referral Specialty Diagnoses / Procedures Referred By Contac t Referred To Contact Gastroenterology Diagnoses Recurrent Clostridioides difficile infection Procedures CONSULT TO GASTROENTEROLOGY OFFICE/OUTPATIENT [facility] MDM 60-74 MINUTES Zenia Moreno PA-C [address] [place] [address] Referral ID Status Reason Start Date Expiration Date Visits Requested Visits Authorized [id number] Authorized PCP Requested Referral 02/25/2022 02/25/2023 1 1 Specialty Diagnoses / Procedures Referred By Contac t Referred To Contact [facility] Diagnoses 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) Wheezing on expiration Procedures CT CHEST WO IVCON DIAGNOSTIC COMPUTED TOMOGRAPHY THORAX W/O CNTRST Amor Verde MD [address] [place] [address] [place] [address] Referral ID Status Reason Start Date Expiration Date V isits Requested Visits Authorized [id number] Closed Auto-Generate d Referral 03/07/2023 04/05/2024 1 1 Medications Administered Section Inactive Administered Medications - up to 3 most recent administrations Medication Order MAR Action Action Date Dose Rate Site cilgavimab 300 mg intramuscular injection (EVUSHELD) 300 mg, INTRAMUSCULAR, ONCE (UP TO 30 DAYS AMB), 1 dose, On Faviola 04/01/22 at 0930, Administer tixagevimab and cilgavimab as separate IM injections - preferably one in each of the gluteal muscles, one after the other. EXP: (4 HR). Refrigerate - Protect from Light. Observe patient for at least 1 hour after injection(s) administered., Prior to the patient receiving tixagevimab and cilgavimab, patient has been given the Fact Sheet for Patients and Parents/Caregivers. Yes, Prior to the patient receiving tixagevimab and cilgavimab, patient has been informed that tixagevimab and cilgavimab is an unapproved drug that is authorized for use under [employer]. Yes, AMB MED ORDERS Given 04/01/2022 11:26 AM EDT 300 mg Buttocks, Right tixagevimab 300 mg intramuscular injection (EVUSHELD) 300 mg, INTRAMUSCULAR, ONCE (UP TO 30 DAYS AMB), 1 dose, On Faviola 04/01/22 at 0930, Administer tixagevimab and cilgavimab as separate IM injections - preferably one in each of the gluteal muscles, one after the other. EXP: (4 HR). Refrigerate - Protect from Light. Observe patient for at least 1 hour after injection(s) administered., AMB MED ORDERS Given 04/01/2022 11:26 AM EDT 300 mg Buttocks, Left Inactive Administered Medications - up to 3 most recent administrations Medication Order MAR Action Action Date Dose Rate Site acetaminophen 1,000 mg tab(s) (TYLENOL) 1,000 mg, ORAL, ONCE, 1 dose, On Tue10/13/22 at 0900, No more than 4000 mg of acetaminophen should be given per day (FROM ALL SOURCES), If ordered PRN for pain, patient/guardian may elect to receive this medication for higher pain levels INSTEAD of the opioid, if preferred: N/A Given 10/13/2022 9:04 AM EST 1,000 mg diphenhydrAMINE 50 mg (BENADRYL) 50 mg, ORAL, ONCE, 1 dose, On Tue10/13/22 at 0900 Given 10/13/2022 9:04 AM EST 50 mg methylPREDNISolone sod succinate(PF) 125 mg injection (SOLU-Medrol) 125 mg, INTRAVENOUS, ONCE, 1 dose, On Tue10/13/22 at 0900 Given 10/13/2022 9:04 AM EST 125 mg riTUXimab 1,000 mg in NaCl 0.9% 640 mL (RITUXAN) 1,000 mg, INTRAVENOUS, ONCE, 1 dose, On Tue10/13/22 at 0900, exp 89910/14/22 (room temp) . Infuse at rate of 50mg/hr. If no hypotension, increase rate every 30 minutes by 50mg/hr to a maximum rate of 400mg/hr. Rate/Dose Change 10/13/2022 12:53 PM EST 320 mL/hr Active Administered Medications - up to 3 most recent administrations Medication Order MAR Action Action Date Dose Rate Site fluorescein-benoxinate 0.25-0.4 % 1 Drop (FLURESS) 1 Drop, BOTH EYES, DIRECTED, Starting on Tue12/06/22 at 1400, Until Tue12/07/22 at 0159, Administer for applanation tonometry. In the event of a Fluress shortage, administer Glenna-Fluor 1 drop into both eyes as directed for applanation tonometry Given 12/06/2022 1:41 PM EST 1 Drop PHENYLephrine 2.5 % 1 Drop (AK-DILATE, SHREYA-SYNEPHRINE) 1 Drop, BOTH EYES, DIRECTED, Starting on Tue12/06/22 at 1400, Until Tue12/07/22 at 0159, Administer for dilation PROTECT FROM LIGHT Given 12/06/2022 1:41 PM EST 1 Drop proparacaine 0.5 % 1 Drop (ALCAINE) 1 Drop, BOTH EYES, DIRECTED, Starting on Tue12/06/22 at 1400, Until Tue12/07/22 at 0159, Administer for pneumo tonometry, tonopen tonometry, or pachymetry. In the event of a proparacaine shortage, administer tetracaine 0.5% ophthalmic drops 1 drop in the left eye as directed for pneumo tonometry, tonopen tonometry, or pachymetry Given 12/06/2022 1:41 PM EST 1 Drop tropicamide 1 % 1 Drop (MYDRIACYL) 1 Drop, BOTH EYES, DIRECTED, Starting on Tue12/06/22 at 1400, Until Tue12/07/22 at 0159, Administer for dilation Given 12/06/2022 1:41 PM EST 1 Drop Health Concerns Infection Onset Date Last Indicated Resolved Time COVID-19 Rule-Out 04/01/2022 04/01/2022 04/01/2022 8:33 AM EDT Additional Source Comments INFORMATION SOURCE (unrecogn ized section and content) DATE CREATED AUTHOR AUTHOR'S ORGANIZ ATION 02/05/2020 [facility] DATE CREATED AUTHOR AUTHOR'S ORGANIZ ATION 08/22/2021 [facility] DATE CREATED AUTHOR AUTHOR'S ORGANIZ ATION 03/19/2023 [employer] DATE CREATED AUTHOR AUTHOR'S ORGANIZ ATION 04/15/2023 [facility] DATE CREATED AUTHOR AUTHOR'S ORGANIZ ATION 12/08/2023 [facility] Source Comments (unrecognize d section and content) In the event this informatio n is protected by the Federal Confidentiality of Alcohol and Drug Abuse Patient Records regulations: The Federal rules restrict any use of the information to criminally investigate or prosecute any alcohol or drug abuse patient.[facility] the event this information is protected by the Federal Confidentiality of Alcohol and Drug Abuse Patient Records regulations: The Federal rules restrict any use of the information to criminally investigate or prosecute any alcohol or drug abuse patient.[facility] HospitalIn the event this information is protected by the Federal Confidentiality of Alcohol and Drug Abuse Patient Records regulations: The Federal rules restrict any use of the information to criminally investigate or prosecute any alcohol or drug abuse patient.[facility] HospitalIn the event this information is protected by the Federal Confidentiality of Alcohol and Drug Abuse Patient Records regulations: The Federal rules restrict any use of the information to criminally investigate or prosecute any alcohol or drug abuse patient.[facility] HospitalIn the event this information is protected by the Federal Confidentiality of Alcohol and Drug Abuse Patient Records regulations: The Federal rules restrict any use of the information to criminally investigate or prosecute any alcohol or drug abuse patient.[facility] HospitalIn the event this information is protected by the Federal Confidentiality of Alcohol and Drug Abuse Patient Records regulations: The Federal rules restrict any use of the information to criminally investigate or prosecute any alcohol or drug abuse patient.[facility] HospitalIn the event this information is protected by the Federal Confidentiality of Alcohol and Drug Abuse Patient Records regulations: The Federal rules restrict any use of the information to criminally investigate or prosecute any alcohol or drug abuse patient.[facility] HospitalIn the event this information is protected by the Federal Confidentiality of Alcohol and Drug Abuse Patient Records regulations: The Federal rules restrict any use of the information to criminally investigate or prosecute any alcohol or drug abuse patient.[facility] HospitalIn the event this information is protected by the Federal Confidentiality of Alcohol and Drug Abuse Patient Records regulations: The Federal rules restrict any use of the information to criminally investigate or prosecute any alcohol or drug abuse patient.[facility] HospitalIn the event this information is protected by the Federal Confidentiality of Alcohol and Drug Abuse Patient Records regulations: The Federal rules restrict any use of the information to criminally investigate or prosecute any alcohol or drug abuse patient.[facility] HospitalIn the event this information is protected by the Federal Confidentiality of Alcohol and Drug Abuse Patient Records regulations: The Federal rules restrict any use of the information to criminally investigate or prosecute any alcohol or drug abuse patient.[facility] HospitalIn the event this information is protected by the Federal Confidentiality of Alcohol and Drug Abuse Patient Records regulations: The Federal rules restrict any use of the information to criminally investigate or prosecute any alcohol or drug abuse patient.[facility] HospitalIn the event this information is protected by the Federal Confidentiality of Alcohol and Drug Abuse Patient Records regulations: The Federal rules restrict any use of the information to criminally investigate or prosecute any alcohol or drug abuse patient.[facility] HospitalIn the event this information is protected by the Federal Confidentiality of Alcohol and Drug Abuse Patient Records regulations: The Federal rules restrict any use of the information to criminally investigate or prosecute any alcohol or drug abuse patient.[facility] HospitalIn the event this information is protected by the Federal Confidentiality of Alcohol and Drug Abuse Patient Records regulations: The Federal rules restrict any use of the information to criminally investigate or prosecute any alcohol or drug abuse patient.[facility] HospitalIn the event this information is protected by the Federal Confidentiality of Alcohol and Drug Abuse Patient Records regulations: The Federal rules restrict any use of the information to criminally investigate or prosecute any alcohol or drug abuse patient.[facility] HospitalIn the event this information is protected by the Federal Confidentiality of Alcohol and Drug Abuse Patient Records regulations: The Federal rules restrict any use of the information to criminally investigate or prosecute any alcohol or drug abuse patient.[facility] HospitalIn the event this information is protected by the Federal Confidentiality of Alcohol and Drug Abuse Patient Records regulations: The Federal rules restrict any use of the information to criminally investigate or prosecute any alcohol or drug abuse patient.[facility] HospitalIn the event this information is protected by the Federal Confidentiality of Alcohol and Drug Abuse Patient Records regulations: The Federal rules restrict any use of the information to criminally investigate or prosecute any alcohol or drug abuse patient.[facility] HospitalIn the event this information is protected by the Federal Confidentiality of Alcohol and Drug Abuse Patient Records regulations: The Federal rules restrict any use of the information to criminally investigate or prosecute any alcohol or drug abuse patient.[facility] HospitalIn the event this information is protected by the Federal Confidentiality of Alcohol and Drug Abuse Patient Records regulations: The Federal rules restrict any use of the information to criminally investigate or prosecute any alcohol or drug abuse patient.[facility] HospitalIn the event this information is protected by the Federal Confidentiality of Alcohol and Drug Abuse Patient Records regulations: The Federal rules restrict any use of the information to criminally investigate or prosecute any alcohol or drug abuse patient.[facility] HospitalIn the event this information is protected by the Federal Confidentiality of Alcohol and Drug Abuse Patient Records regulations: The Federal rules restrict any use of the information to criminally investigate or prosecute any alcohol or drug abuse patient.[facility] HospitalIn the event this information is protected by the Federal Confidentiality of Alcohol and Drug Abuse Patient Records regulations: The Federal rules restrict any use of the information to criminally investigate or prosecute any alcohol or drug abuse patient.[facility] HospitalIn the event this information is protected by the Federal Confidentiality of Alcohol and Drug Abuse Patient Records regulations: The Federal rules restrict any use of the information to criminally investigate or prosecute any alcohol or drug abuse patient.[facility] HospitalIn the event this information is protected by the Federal Confidentiality of Alcohol and Drug Abuse Patient Records regulations: The Federal rules restrict any use of the information to criminally investigate or prosecute any alcohol or drug abuse patient.[facility] HospitalIn the event this information is protected by the Federal Confidentiality of Alcohol and Drug Abuse Patient Records regulations: The Federal rules restrict any use of the information to criminally investigate or prosecute any alcohol or drug abuse patient.[facility] HospitalIn the event this information is protected by the Federal Confidentiality of Alcohol and Drug Abuse Patient Records regulations: The Federal rules restrict any use of the information to criminally investigate or prosecute any alcohol or drug abuse patient.[facility] HospitalIn the event this information is protected by the Federal Confidentiality of Alcohol and Drug Abuse Patient Records regulations: The Federal rules restrict any use of the information to criminally investigate or prosecute any alcohol or drug abuse patient.[facility] HospitalIn the event this information is protected by the Federal Confidentiality of Alcohol and Drug Abuse Patient Records regulations: The Federal rules restrict any use of the information to criminally investigate or prosecute any alcohol or drug abuse patient.[facility] Reason for Visit (unrecogniz ed section and content) Reason Comments Received Outside Medical Records Reason Comments Transplant fecal C Diff- Diarrhea, Ab d Pain Reason Comments Orders Evusheld Reason Comments Appointment Reason Comments Outside Labs Received Reason Comments Non-Chemotherapy Treatment Specialty Diagnoses / Procedures Referred By Dannie t Referred To Contact Diagnoses Granulomatosis with polyangiitis (HCC) Amor Verde MD [address] [place] [address] Rheu Infusion Main [address] [place] [id number] Referral ID Status Reason Start Date Expiration Date V isits Requested Visits Authorized [id number] Authorized 04/28/2022 07/27/2022 99 99 Reason Comments Patient Question Reason Comments Dry Eye Syndrome Follow Up Bilateral Punctate Keratitis Bilateral Posterior Vitreous Detachment Follow Up Bilateral Pseudophakia Bilateral, ReSTOR mu ltifocal lenses Reason Comments Spirometry Specialty Diagnoses / Procedures Referred By Dannie conklin Referred To Contact [facility] Diagnoses 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) Wheezing on expiration Procedures SPIROMETRY BASELINE ONLY SPMTRY W/VC EXPIRATORY BETTIE W/WO MXML VOL VNTJ Amor Verde MD [address] [place] [address] Respiratory [place] [address] [place] [address] Referral ID Status Reason Start Date Expiration Date V isits Requested Visits Authorized [id number] Closed Auto-Generate d Referral 03/07/2023 04/05/2024 1 1 Reason Comments Results Reason Comments Radiology CT Specialty Diagnoses / Procedures Referred By Dannie conklin Referred To Contact CT IMAGING Diagnoses 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) Wheezing on expiration Procedures CT CHEST WO IVCON DIAGNOSTIC COMPUTED TOMOGRAPHY THORAX W/O CNTRST Amor Verde MD [address] [place] [address] Ct Imaging [place] [address] Referral ID Status Reason Start Date Expiration Date V isits Requested Visits Authorized [id number] Closed Auto-Generate d Referral 03/07/2023 04/05/2024 1 1 Care Teams (unrecognized sec tion and content) Bushing And Broach Operator Relationship Specialty Start Date End Date Eugene Alfonso Chi [address] [facility] [address] [place] [address] PCP - General Gerontology 01/26/21 Magda, Adarsh S [address] [place] [address] Specialty Cellar Packer Cardiology 03/14/19 Mando Reid MD [address] [place] [address] Specialty Cellar Packer Cardiology 08/27/19 Mando Rae V [address] [facility] [place] [address] Referring Internal Medicine 07/15/21 Amor Verde MD [address] [place] [address] Specialty Cellar Packer Rheumatology 08/21/21 Bushing And Broach Operator Relationship Specialty Start Date End Date Kaden, Uegene Chi [address] [place] [address] PCP - General Gerontology 01/26/21 Magda, Adarsh S [address] [place] [address] Specialty Cellar Packer Cardiology 03/14/19 Mando Reid MD [address] [place] [address] Specialty Cellar Packer Cardiology 08/27/19 Mando Rae V [address] [facility] [place] [address] Referring Internal Medicine 07/15/21 Amor Verde MD [address] [place], [place] [id number] Specialty Cellar Packer Rheumatology 08/21/21 Bushing And Broach Operator Relationship Specialty Start Date End Date Kaden, Eugene Chi [address] [place] [address] PCP - General Gerontology 01/26/21 Magda, Adarsh S [address] [place] [address] Specialty Cellar Packer Cardiology 03/14/19 Mando Reid MD [address] [place] [address] (Fax) Specialty Cellar Packer Cardiology 08/27/19 Mando Rae V [address] [place] [address] Referring Internal Medicine 07/15/21 Amor Verde MD [address] [place] [address] Specialty Cellar Packer Rheumatology 08/21/21 Bushing And Broach Operator Relationship Specialty Start Date End Date Zeenoh Eugene Chi [address] [place] [address] PCP - General Gerontology 01/26/21 Magda, Adarsh S [address] [place] [address] Specialty Cellar Packer Cardiology 03/14/19 Mando Reid MD [address] [place] [phone] (Fax) Specialty Cellar Packer Cardiology 08/27/19 Mando Rae V [address] [place] [address] Referring Internal Medicine 07/15/21 Amor Verde MD [address] [place] [address] Specialty Cellar Packer Rheumatology 08/21/21 Bushing And Broach Operator Relationship Specialty Start Date End Date Zeenoh, Eugene Chi [address] [place] [address] PCP - General Gerontology 01/26/21 Magda, Adarsh S [address] [place] [address] Specialty Cellar Packer Cardiology 03/14/19 Mando Reid MD [address] [place] [address] Specialty Cellar Packer Cardiology 08/27/19 Mando Rae V [address] [facility] [place] [phone] Referring Internal Medicine 07/15/21 Amor Verde MD [address] [place] [address] Specialty Cellar Packer Rheumatology 08/21/21 Bushing And Broach Operator Relationship Specialty Start Date End Date Eugene Alfonso Chi [address] [place] [address] PCP - General Gerontology 01/26/21 Magda, Adarsh S [address] [place] [address] Specialty Cellar Packer Cardiology 03/14/19 Mando Reid MD [address] [place] [phone] Specialty Cellar Packer Cardiology 08/27/19 Mando Rae V [address] [place] [phone] Referring Internal Medicine 07/15/21 Amor Verde MD [address] [place] [address] Specialty Cellar Packer Rheumatology 08/21/21 Bushing And Broach Operator Relationship Specialty Start Date End Date Eugene Alfonso Chi [address] [place] [address] PCP - General Gerontology 01/26/21 Magda, Adarsh S [address] [place] [address] Specialty Cellar Packer Cardiology 03/14/19 Mando Reid MD [address] [place] [address] Specialty Cellar Packer Cardiology 08/27/19 Mando Rae V [address] [place] [phone] Referring Internal Medicine 07/15/21 Amor Verde MD [address] [place] [address] Specialty Cellar Packer Rheumatology 08/21/21 Bushing And Broach Operator Relationship Specialty Start Date End Date Eugene Alfonso Chi [address] [place] [address] PCP - General Gerontology 01/26/21 Magda, Adarsh S [address] [place] [address] Specialty Cellar Packer Cardiology 03/14/19 Mando Reid MD [address] [place] [address] Specialty Cellar Packer Cardiology 08/27/19 Mando Rae V [address] [place] [address] Referring Internal Medicine 07/15/21 Amor Verde MD [address] [place] [address] Specialty Cellar Packer Rheumatology 08/21/21 Bushing And Broach Operator Relationship Specialty Start Date End Date Eugene Alfonso Chi [address] [place], [place] [address] PCP - General Gerontology 01/26/21 Magda, Beverly S [address] [place] [address] Specialty Cellar Packer Cardiology 03/14/19 Mando Reid MD [address] [place] [phone] (Fax) Specialty Cellar Packer Cardiology 08/27/19 Mando Rae V [address] [place] [address] [place] [phone] Referring Internal Medicine 07/15/21 Amor Verde MD [address] [place] [address] Specialty Cellar Packer Rheumatology 08/21/21 Bushing And Broach Operator Relationship Specialty Start Date End Date Eugene Alfonso Chi [address] [place] [address] PCP - General Gerontology 01/26/21 Obi Manril S [address] [place] [address] Specialty Cellar Packer Cardiology 03/14/19 Mando Reid MD [address] [place] [phone] (Fax) Specialty Cellar Packer Cardiology 08/27/19 Mando Rae V [address] [place] [phone] Referring Internal Medicine 07/15/21 Amor Verde MD [address] [place] [address] Specialty Cellar Packer Rheumatology 08/21/21 Bushing And Broach Operator Relationship Specialty Start Date End Date Eugene Alfonso Chi [address] [place] [address] PCP - General Gerontology 01/26/21 Magda, Adarsh S [address] [place] [address] Specialty Cellar Packer Cardiology 03/14/19 Mando Reid MD [address] [place] [phone] Specialty Cellar Packer Cardiology 08/27/19 Mando Rae V [address] [place] [address] Referring Internal Medicine 07/15/21 Amor Verde MD [address] [place] [address] Specialty Cellar Packer Rheumatology 08/21/21 Bushing And Broach Operator Relationship Specialty Start Date End Date Eugene Alfonso Chi [address] [place] [address] PCP - General Gerontology 01/26/21 Magda, Adarsh S [address] [place] [address] Specialty Cellar Packer Cardiology 03/14/19 Mando Reid MD [address] [place] [phone] Specialty Cellar Packer Cardiology 08/27/19 Mando Rae V [address] [place] [address] Referring Internal Medicine 07/15/21 Amor Verde MD [address] [place] [address] Specialty Cellar Packer Rheumatology 08/21/21 Bushing And Broach Operator Relationship Specialty Start Date End Date Eugene Alfonso Chi [address] [place], [place] [id number] PCP - General Gerontology 01/26/21 Magda, Beverly S [address] [place] [address] Specialty Cellar Packer Cardiology 03/14/19 Mando Reid MD [address] [place] [phone] (Fax) Specialty Cellar Packer Cardiology 08/27/19 Mando Rae V [address] [facility] [place] [address] Referring Internal Medicine 07/15/21 Amor Verde MD [address] [place] [address] Specialty Cellar Packer Rheumatology 08/21/21 Bushing And Broach Operator Relationship Specialty Start Date End Date Jose Stewart MD [address] [place] [address] PCP - General Family Medicine 05/31/23 Magda, Beverly S [address] [place] [address] Specialty Cellar Packer Cardiology 03/14/19 Mando Reid MD [address] [place] [phone] (Fax) Specialty Cellar Packer Cardiology 08/27/19 Mando Rae V [address] [facility] [place] [phone] Referring Internal Medicine 07/15/21 Amor Verde MD [address] [place] [address] Specialty Cellar Packer Rheumatology 08/21/21 Bushing And Broach Operator Relationship Specialty Start Date End Date Eugene Alfonso Chi [address] [facility] [address] [place], [place] [id number] PCP - General Gerontology 01/26/21 05/30/23 Adarsh Man MD [address] [facility] [address] [place], [place] [address] Specialty Cellar Packer Cardiology 03/14/19 Mando Reid MD [address] [facility] [address] [place] [address] Specialty Cellar Packer Cardiology 08/27/19 Mando Rae V [address] [facility] [place] [address] Referring Internal Medicine 07/15/21 Amor Verde MD [address] [place] [address] Specialty Cellar Packer Rheumatology 08/21/21 Bushing And Broach Operator Relationship Specialty Start Date End Date Jose Stewart MD [address] [place] [address] PCP - General Family Medicine 05/31/23 Adrash Man MD [address] [facility] [address] [place], [place] [address] Specialty Cellar Packer Cardiology 03/14/19 Mando Reid MD [address] [place] [phone] Specialty Cellar Packer Cardiology 08/27/19 Mando Rae V [address] [facility] [place] [address] Referring Internal Medicine 07/15/21 Amor Verde MD [address] [place] [address] Specialty Cellar Packer Rheumatology 08/21/21 FOR RECORDS PERTAINING TO PATIENTS WHO ARE OR HAVE BEEN ENROLLED IN A CHEMICAL DEPENDENCY/SUBSTANCEABUSE PROGRAM, SOME INFORMATION MAY BE OMITTED. This clinical summary was aggregated from multiple sources. Caution should be exercised in using it in the provision of clinical care. This summary normalizes information from multiple sources, and as a consequence, information in this document may materially change the coding, format and clinical context of patient data. In addition, data may be omitted in some cases. CLINICAL DECISIONS SHOULD BE BASED ON THE PRIMARY CLINICAL RECORDS. [employer] provides no warranty or guarantee of the accuracy or completeness of information in this document.
--- NOTE | 2023-12-24 10:18 | CT_ITS ---
INDICATION: PULMONARY NODULE EXAMINATION: CT CHEST WITHOUT CONTRAST - CT Chest W/O Contrast Injection TECHNIQUE: Helically acquired images were obtained of the chest. A radiation dose optimization technique was used for this scan. IV Contrast dosage and agent: None. COMPARISON: 06/16/2022 CT, 01/13/2021 PET scan FINDINGS: Stable bilateral breast prosthesis with surgical clips in the right axillary region. LUNGS, PLEURA AND LARGE AIRWAYS: Similar multilobar subpleural reticulation/fibrosis. No honeycombing. Central, cylindrical bronchiectasis in multiple pulmonary lobes stable. Subpleural blebs and parenchymal fibrosis similar, including in the medial right lower lobe, and region of prior PET scan abnormality/FDG activity. No pleural effusion or thickening. No pneumothorax. THYROID: No thyroid lesions. HEART AND PERICARDIUM: Heart size is normal. No pericardial effusion. CORONARY ARTERIES: Coronary artery calcification/stent is seen. VESSELS: Thoracic aorta is not dilated. MEDIASTINUM AND NÉSTOR: No mediastinal or hilar adenopathy. Esophagus is unremarkable. No hiatal hernia. UPPER ABDOMEN: No acute pathology. Bariatric device/LAP-BAND encases the GE junction. Gallstones in a contracted gallbladder. BONES: No suspicious lytic or blastic abnormality. CT/Chest without Contrast IMPRESSION: 1. Since 06/16/2022, stable exam. No new or enlarging pulmonary nodule/mass. 2. Chronic changes, as above. Electronically Signed: Mihir Cullen MD ([place]) at 17:48 EST ,
== END | disposition home or self-care (01) ==
LOC: CT 09:55
PROVIDERS: PCP Family Medicine; Visit Provider Internal Medicine Pulmonary Disease
DX: R91.1 Solitary pulmonary nodule (principal)
CPT/HCPCS: 71250

== ENCOUNTER → 2024-01-03 | Outpatient (CLI) | payer MEDICARE, SELFPAY ==
[2020-12-05 14:34] VITALS: BMI 31.7
[2024-01-03 16:25] LABS: AST(SGOT) 11 U/L (15-37); Alanine Aminotransfer ALT/SGPT 20 U/L (13-56); Alkaline Phosphatase 86 U/L (45-117); Bilirubin, Direct 0.12 mg/dL (0.00-0.30); Globulin 3.3 g/dL (2.2-4.2); Protein, Total 6.3 g/dL (6.4-8.2)
== END | disposition home or self-care (01) ==
PROVIDERS: PCP Family Medicine; Referring Provider Internal Medicine Pulmonary Disease; Visit Provider Internal Medicine Pulmonary Disease
DX: I27.0 Primary pulmonary hypertension (principal)
CPT/HCPCS: 36415; 80076

== ENCOUNTER → 2024-02-08 | Outpatient (CLI) | payer MEDICARE, SELFPAY ==
[2020-12-05 14:34] VITALS: BMI 31.7
[2024-02-13 00:08] LABS: Calprotectin, Stool 107 ug/g (0-120); Fats, Neutral Normal (.); Fats, Total Normal (.)
[2024-02-14 12:09] LABS: Pancreatic Elastase, Fecal 62 (>200)
== END | disposition home or self-care (01) ==
LOC: LABSPEC 09:49
PROVIDERS: PCP Family Medicine; Referring Provider Internal Medicine Gastroenterology; Visit Provider Internal Medicine Gastroenterology
DX: K58.9 Irritable bowel syndrome, unspecified (principal); R19.7 Diarrhea, unspecified
CPT/HCPCS: 82653; 82705; 83630; 83993; 87177; 87209; 87329

== ENCOUNTER 2024-02-29 12:38 | Inpatient (IN) | payer MEDICARE, SELFPAY ==
[2020-12-05 14:34] VITALS: BMI 31.7
[2024-02-29] VITALS (14 sets, daily range): BP systolic 127–168; BP diastolic 75–138; PULSE 93–107; RESP 13–23; TEMP 36.1–36.8; O2SAT 94–99; BMI 32.1
--- NOTE | 2024-02-29 12:44 | CT_ITS ---
STUDY: CT BRAIN WITHOUT CONTRAST REASON FOR EXAM: Female, 73 years old. Confusion RADIATION DOSAGE (If Supplied By Facility): CTDIvol = ( 44.99 ) mGy, DLP = ( 812.98 ) mGycm TECHNIQUE: Transaxial CT imaging of the brain was performed without administration of intravenous contrast material. Individualized dose optimization techniques were used for this CT. COMPARISON: No relevant priors. FINDINGS: Normal soft tissue structures. Normal calvarium. There is mild cerebral atrophy with widening of the extra-axial spaces and ventricular dilatation. There are areas of decreased attenuation within the white matter tracts of the supratentorial brain, consistent with microvascular disease changes. Normal basal ganglia and thalami. Normal brainstem. Normal cerebellum. There is no intracranial hemorrhage. There are no findings of an acute ischemic infarction. Atherosclerotic calcification of the cavernous portions of the internal carotid arteries bilaterally. Normal visualized paranasal sinuses. CT/Brain/Head without Contrast IMPRESSION: Chronic involutional changes of the brain. Electronically Signed: Jordan Adame MD at 13:45 EDT ,
--- NOTE | 2024-02-29 12:45 | EKG12_ITS ---
Test Reason : Blood Pressure : / mmHG Vent. Rate : 101 BPM Atrial Rate : 000 BPM P-R Int : 000 ms QRS Dur : 086 ms QT Int : 514 ms P-R-T Axes : 000 018 051 degrees QTc Int : 666 ms Critical Test Result: Long QTc Atrial fibrillation with rapid ventricular response with premature ventricular or aberrantly conducte d complexes Minimal voltage criteria for LVH, may be normal variant ( R in aVL ) Nonspecific ST abnormality Prolonged QT Abnormal ECG Confirmed by MERCED JACINTO, ANGEL ([id number]), editor newspaper LUCINDA SALCEDO ([id number]) on 03/05/2024 10:04:49 AM Referred By: Confirmed By:TOMA BLACKWOOD MD
--- NOTE | 2024-02-29 12:48 | EX.ED.DYSGE1 ---
HPI History of Present Illness Chief Complaint: Confusion Detail of Chief Complaint: Weakness and confusion Informant: patient and spouse/S.O. Narrative Narrative: Patient brought in by spouse today secondary to concern for possible stroke. He states that she has chronic GI issues with vomiting and diarrhea and has been following with Dr. Mock. Yesterday around noon she complained that her abdomen was not feeling well. She sat in the chair to take a nap. When she woke at 1 PM yesterday she was more confused and weak than normal. is concerned she may have had a stroke. He states that she was so weak today he could not get her up. She has not had fever. Patient herself denies headache, chest pain, or abdominal pain. It does appear patient has a history of paroxysmal A-fib. She is on aspirin but I do not see anticoagulants. [facility] Medical History Anxiety Arthritis Atherosclerotic heart disease of [place] coronary artery without angina pectoris Back pain Bladder disease Breast cancer C. difficile colitis Cancer Cardiology follow-up encounter Chronic rhinitis Colitis Depression Diverticulitis Easy bruising Essential (primary) hypertension History of atrial fibrillation History of breast cancer History of diverticulitis History of echocardiogram History of edema History of ST elevation myocardial infarction (STEMI) (11/25/20) History of stress test Hoarseness Loss of hearing Mixed hyperlipidemia Neuropathy Non-smoker On home oxygen therapy Osteopenia Paroxysmal atrial fibrillation Post-menopausal Shortness of breath on exertion Tear film insufficiency Uses wheelchair Vitamin deficiency Walker as ambulation aid Wears glasses Wears hearing aid Tami's granulomatosis Home Medications carboxymethylcellulose sodium 0.5 % eye drops (Refresh Tears) 1 drp ophthalmic (eye) 4-8XD PRN Dry Eyes 08/31/18 [History Last Taken 01/18/22] aspirin 81 mg tablet,delayed release (Adult Low Dose Aspirin) 81 mg PO DAILY 01/19/22 [History Last Taken 10/24/22] potassium chloride 10 mEq capsule,extended release 10 meq PO BID SUPPLEMENT 01/19/22 [History Last Taken 01/19/22] handicap placcard #1 ea 12/15/22 [Rx Last Taken Unknown] cholecalciferol (vitamin D3) 25 mcg (1,000 unit) capsule (Vitamin D3) 50 mcg PO DAILY 03/23/23 [History Last Taken Unknown] atorvastatin 10 mg tablet (Lipitor) 10 mg PO QHS cholesterol #90 tabs 05/20/23 [Rx Last Taken Unknown] budesonide 3 mg capsule,delayed,extended release 9 mg (3 x 3 mg) PO QAM microscopic colitis #270 ea 07/25/23 [Rx Last Taken Unknown] diphenoxylate-atropine 2.5 mg-0.025 mg tablet (Lomotil) 1 tab PO TID PRN diarrhea #90 tabs 08/16/23 [Rx Last Taken Unknown] metoprolol tartrate 25 mg tablet 12.5 mg (1/2 x 25 mg) PO BID #90 tabs 02/02/24 [Rx Last Taken Unknown] nintedanib 150 mg capsule (Ofev) 150 mg PO Q12H 02/07/24 [History Last Taken Unknown] Allergy/AdvReac Type Severity Reaction Status Date / Time No Known Allergies Allergy Verified 02/29/24 12:40 Family History Father Heart disease Colon cancer Mother Breast cancer CVA (cerebral vascular accident) Grandmother CVA (cerebral vascular accident) Brother Diabetes Surgical History H/O mastectomy History of adjustable gastric banding History of appendectomy History of cataract surgery History of coronary artery stent placement (11/25/20) History of left heart catheterization (05/15/08) History of radiofrequency ablation procedure for cardiac arrhythmia (05/15/19) History of tonsillectomy Hx of abdominoplasty Hx of breast reduction, elective Social History household members: spouse Smoking Status: Never smoker alcohol intake: never caffeine: No what type of physical activity do you participate in: swimming and aerobics frequency: 3-4 times per week ROS ROS ED Review of Systems ROS Unobtainable: due to mental condition Constitutional Constitutional ED: Denies chills or fever(s) ENT ENT ED: Denies rhinorrhea or sore throat Cardiovascular Cardiovascular: Denies chest pain or palpitations Respiratory/Chest Respiratory/Chest: Denies cough or dyspnea Gastrointestinal Gastrointestinal: Reports diarrhea, nausea and vomiting; Denies abdominal pain Musculoskeletal Musculoskeletal: Denies back pain or extremity pain Neurologic Neurologic: Reports weakness; Denies headache(s) Allergic/Immunologic Allergic/Immunologic ED: Denies lip swelling or urticaria EXAM Physical Exam Const Vital Signs: 02/29/24 12:40 02/29/24 12:44 02/29/24 13:29 Temperature 97 F L 97.6 F L Temperature Source Temporal Oral Pulse Rate 107 H 105 H 100 Respiratory Rate 20 H 23 H 20 H Blood Pressure 160/99 H 160/99 H Blood Pressure Mean 119 119 Pulse Ox 98 96 95 Oxygen Delivery Method Room Air Room Air 02/29/24 13:30 02/29/24 13:45 02/29/24 14:00 Temperature Temperature Source Pulse Rate 100 99 97 Respiratory Rate 17 13 18 Blood Pressure 133/79 H 141/83 H 145/75 H Blood Pressure Mean 97 98 95 Pulse Ox 97 96 94 Oxygen Delivery Method 02/29/24 14:15 02/29/24 14:30 Temperature Temperature Source Pulse Rate 93 97 Respiratory Rate 19 H 23 H Blood Pressure 157/93 H 163/138 H Blood Pressure Mean 108 145 Pulse Ox 95 94 Oxygen Delivery Method Positive well nourished and well developed General Appearance ED: well developed HEENT Reports moist mucous membranes Eyes EOMs intact bilaterally Chest Wall inspection of chest normal and palpation of chest normal Resp normal respiratory effort and clear to auscultation bilaterally Cardio regular rate and regular rhythm GI non-tender Auscultation: hypoactive bowel sounds Palpation: soft Extremity normal to inspection Neuro Neuro Narrative: Patient alert and will answer questions, but is somewhat slow to respond. She has diffuse weakness with inability to raise her arms or feet off the bed herself. When I raise them up she is only able to hold them a short time before they fall to the bed. Patient is able to rotate her feet on the bed without difficulty. Good distal pulses noted. Skin no rashes or lesions noted MDM MDM MDM Narrative Medical decision making narrative: As patient presents 25 hours after last known well, stroke alert is not initiated. She does not have focal neurologic deficits on exam. 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 EKG obtained to evaluate for cardiac arrhythmia/ischemia. IV line established. Patient given IV fluids. Labwork obtained to evaluate for leukocytosis, anemia, and electrolyte derangement. Urinalysis obtained to evaluate for infection/hematuria. CT scan of the head obtained given increased confusion. History & Record Review Discussion w/independent historian: Patient and Significant other Lab Data Attestation: I reviewed the patient's lab results. Labs: Laboratory Results - last 24 hr 02/29/24 02/29/24 12:50 13:10 WBC 11.4 H RBC 4.90 Hgb 14.1 Hct 44.0 MCV 89.8 MCH 28.8 MCHC 32.0 RDW Std Deviation 55.6 H RDW Coeff of [place]restes 17.0 H Plt Count 325 MPV 10.7 Immature Gran % (Auto) 1.100 H Neut % (Auto) 57.1 Lymph % (Auto) 24.9 [place]inger % (Auto) 14.8 H Eos % (Auto) 1.4 Baso % (Auto) 0.7 Absolute Neuts (auto) 6.5 Absolute Lymphs (auto) 2.83 Nucleated RBC % 0 Diff Path Review May foll Sodium 138 Potassium 3.4 L Chloride 101 Carbon Dioxide 28.0 Anion Gap 9 BUN 12 Creatinine 1.03 H Estim Creat Clear Calc 49.87 Est GFR (MDRD) Af Amer 67 Est GFR (MDRD) Non-Af 55 L BUN/Creatinine Ratio 11.7 Glucose 122 H Calcium 9.7 Total Bilirubin 0.90 Direct Bilirubin 0.24 AST 15 ALT 33 Alkaline Phosphatase 112 Troponin I High Sens 42 Total Protein 6.9 Albumin 3.1 L Globulin 3.8 Urine Color Yellow Urine Clarity Clear Urine pH 6.0 Ur Specific [place] 1.020 Urine Protein 100 H Urine Glucose (UA) Normal Urine Ketones 50 H Urine Occult Blood 10 H Urine Nitrite Negative Urine Bilirubin 1 H Urine Urobilinogen Normal Ur Leukocyte Esterase 500 H Urine RBC 0 SEEN Urine WBC 5-10 SEEN Ur Squamous Epith Cells 0 SEEN Urine Bacteria 0 SEEN Urine Mucus 0 SEEN Radiography Chest X-Ray - ED: 1 View, Read by ED Physician and - (Hyperinflation with chronic changes. No focal infiltrate.) Diagnostic Testing: Clinical Impression(s) from Imaging Studies Brain CT 02/29/24 12:44 IMPRESSION: Chronic involutional changes of the brain. Electronically Signed: Jordan Adame MD at 13:45 EDT , Chest X-Ray 02/29/24 13:20 IMPRESSION: Stable examination. No acute abnormality is seen. Electronically Signed: Jordan Adame MD at 13:42 EDT , EKG Initial EKG: Attestation: I personally reviewed and interpreted this EKG as follows: Interpretation: Atrial Fibrillation (A-fib with ventricular rate of 101. No acute ischemia.) Treatment and Re-Evaluation :: CBC reveals white count of 11.4 with normal differential. Chemistry studies reveal only slightly low potassium at 3.4. BUN is 12 and creatinine is 1.03. Glucose is 122. LFTs are unremarkable. Troponin is normal at 42. Urinalysis reveals 5-10 white cells with 0 bacteria and no nitrites. Portable chest x-ray per my interpretation was hypoinflation with no focal infiltrate. Radiology interpretation is reviewed. EKG is A-fib at 101 with no evidence of ischemia. On repeat evaluation patient resting comfortably in bed. Vital signs are stable. Patient continues with generalized weakness. Her noncontrast head CT reveals chronic changes with no evidence of ischemic stroke on noncontrast study. Patient will require admission for further workup and evaluation with physical therapy. I will speak with hospitalist. Discharge Plan Triage Chief Complaint: Confusion Other Complaint: Abd Pain ED Provider: Jocelyne Cruz Dx/Rx/DC Orders Clinical Impression: Generalized weakness, Unable to ambulate Prescriptions: No Action Refresh Tears 0.5 % drops 1 drp OPHTHALMIC 4-8XD PRN (Reason: Dry Eyes) (DME) handicap placcard See Rx Instructions .Route .MEDSUPPLY Qty: 1 0RF Rx Instructions: Dx: Debility, Restrictive lung disease exp:5 years budesonide 3 mg capsule,delayed,extend.release 9 mg PO QAM Qty: 270 3RF potassium chloride 10 mEq capsule, extended release 10 meq PO BID aspirin [Adult Low Dose Aspirin] 81 mg tablet,delayed release (DR/EC) 81 mg PO DAILY cholecalciferol (vitamin D3) [Vitamin D3] 25 mcg (1,000 unit) Capsule 50 mcg PO DAILY atorvastatin [Lipitor] 10 mg tablet 10 mg PO QHS Qty: 90 3RF diphenoxylate-atropine [Lomotil] 2.5-0.025 mg tablet 1 tab PO TID PRN (Reason: diarrhea) Qty: 90 2RF metoprolol tartrate 25 mg tablet 12.5 mg PO BID Qty: 90 3RF Ofev 150 mg capsule 150 mg PO Q12H Primary Care Provider: Rito Stewart Referrals: Rito Stewart MD [Primary Care Provider] - Disposition Disposition: Acute Care Hospital [facility]
[2024-02-29 12:58] LABS: Absolute Lymphocyte Count 2.83 X10^3/uL (0.83-4.51); Absolute Neutrophil Count 6.5 X10^3/uL (2.0-7.7); Basophil# 0.08 X10^3/uL; Basophil% 0.7 % (0-1); Eosinophil# 0.16 X10^3/uL; Eosinophils% 1.4 % (0-5); Hemoglobin 14.1 g/dL (12.0-15.0); Lymphocyte # 2.83 X10^3/ul (0.83-4.51); Lymphocyte % 24.9 % (19-41); Mean Corpuscular Hgb 28.8 pg (27.0-32.0); Mean Corpuscular Volume 89.8 fL (81-99); Mean Platelet Vol. 10.7 fl (6.2-12.0); Monocyte# 1.68 X10^3/uL; Monocyte% 14.8 % (0-10); NRBC Flagged by Analyzer 0 % (0-5); Neutrophil # 6.51 X10^3/uL (2.7-7.7); Neutrophil % 57.1 % (47-70); POSITIVE DIFFERENTIAL YES; Platelet Count 325 K/mm3 (150-450); RBC Distribution Width SD 55.6 fl (35.1-43.9); White Blood Count 11.4 K/mm3 (4.4-11.0)
[2024-02-29 13:01] LABS: Differential Indicated SCAN CRITERIA MET
[2024-02-29 13:18] LABS: AST(SGOT) 15 U/L (15-37); Alanine Aminotransfer ALT/SGPT 33 U/L (13-56); Albumin, Serum 3.1 g/dL (3.2-5.0); Alkaline Phosphatase 112 U/L (45-117); Anion Gap 9 (5-15); BUN 12 mg/dL (7-18); BUN/Creat Ratio 11.7 RATIO (10-20); Bilirubin, Direct 0.24 mg/dL (0.00-0.30); Calcium,Total 9.7 mg/dL (8.5-10.1); Chloride 101 mmol/L (98-107); Creatinine, Serum 1.03 mg/dL (0.55-1.02); EST Glomerular Filtration Rate 55 mL/min (>60); Est Glom Filt Rate - Afr Amer 67 mL/min (>60); Estimated Creatinine Clearance 49.87 ml/min; Globulin 3.8 g/dL (2.2-4.2); Glucose 122 mg/dL (74-106); Potassium 3.4 mmol/L (3.5-5.1); Protein, Total 6.9 g/dL (6.4-8.2); Sodium Level 138 mmol/L (136-145); Troponin-I HS 42 pg/mL (3.0-54.0)
--- NOTE | 2024-02-29 13:20 | RAD_ITS ---
STUDY: X-RAY CHEST REASON FOR EXAM: Female, 73 years old. Weakness and confusion. TECHNIQUE: Single AP portable view of the chest. COMPARISON: Comparison is made with prior study dated April 27, 2022. FINDINGS: EKG electrodes are seen. Stable elevation of the right hemidiaphragm. There is no demonstrated pleural abnormality. There is borderline cardiomegaly. Normal mediastinum and dana. Normal visualized pulmonary arteries. There is atherosclerotic tortuosity of the aortic arch and descending thoracic aorta. There are diffuse degenerative changes of the visualized thoracic spine. Normal visualized ribs, clavicles, and shoulders. There is no demonstrated abnormality of the visualized soft tissue structures of the upper abdomen. RAD/Chest 1 View (Portable) IMPRESSION: Stable examination. No acute abnormality is seen. Electronically Signed: Jordan Adame MD at 13:42 EDT ,
[2024-02-29 13:25] LABS: Bacteria 0 SEEN /hpf (None Seen); Mucous, Urine 0 SEEN /hpf (<or=2+); Red Blood Cells-Urine 0 SEEN /hpf (0-5); Squamous Epithelial Cells - UA 0 SEEN /hpf (5-10)
[2024-02-29 13:35] LABS: Color, Urine Yellow (Yellow); Glucose, Dipstick Normal (Normal); Ketone-Dipstick 50 mg/dl (Negative); Leukocyte Esterase-Dipstick 500 /ul (Negative); Nitrite-Dipstick Negative (Negative); Occult Blood-Urine 10 /ul (Negative); Protein-Dipstick 100 mg/dl (Negative); Urine Clarity Clear (Clear); Urine Urobilinogen Normal (Normal)
[2024-02-29 13:42] LABS: Urine Bilirubin Dipstick 1 mg/dL (Negative)
[2024-02-29 13:46] LABS: White Blood Cells 5-10 SEEN /hpf (0-5)
--- NOTE | 2024-02-29 15:11 | NURSING ---
DR HASTINGS FOR DR MCDANIELS
--- NOTE | 2024-02-29 15:20 | NURSING ---
PCU [facility] WEAKNESS, CONFUSION
--- NOTE | 2024-02-29 15:36 | HP.PCM.HOS_ITS ---
HPI - General General Date of Admission: 02/29/24 Date of Service: 02/29/24 Chief Complaint: Confusion HPI Narrative ANDRADE SANTOS, is a 73 F who presents greater than 24 hours of confusion. Patient yesterday was in her normal state of health and then went to take a nap and then when she awoke, was notably more weak and confused. Did not get any better so the decided to bring patient to the emergency room. Patient underwent a workup that was unremarkable. Head CT was negative. Hospital service was contacted for admission and further evaluation. Given the delayed onset, patient was not a candidate for any consideration for TNK. Patient states that her symptoms were preceded by nausea and vomiting and abdominal pain. [facility] Medical History Anxiety Arthritis Atherosclerotic heart disease of [place] coronary artery without angina pectoris Back pain Bladder disease Breast cancer C. difficile colitis Cancer Cardiology follow-up encounter Chronic rhinitis Colitis Depression Diverticulitis Easy bruising Essential (primary) hypertension History of atrial fibrillation History of breast cancer History of diverticulitis History of echocardiogram History of edema History of ST elevation myocardial infarction (STEMI) (11/25/20) History of stress test Hoarseness Loss of hearing Mixed hyperlipidemia Neuropathy Non-smoker On home oxygen therapy Osteopenia Paroxysmal atrial fibrillation Post-menopausal Shortness of breath on exertion Tear film insufficiency Uses wheelchair Vitamin deficiency Walker as ambulation aid Wears glasses Wears hearing aid Tami's granulomatosis Home Medications carboxymethylcellulose sodium 0.5 % eye drops (Refresh Tears) 1 drp ophthalmic (eye) 4-8XD PRN Dry Eyes 08/31/18 [History Last Taken 01/18/22] aspirin 81 mg tablet,delayed release (Adult Low Dose Aspirin) 81 mg PO DAILY 01/19/22 [History Last Taken 10/24/22] potassium chloride 10 mEq capsule,extended release 10 meq PO BID SUPPLEMENT 01/19/22 [History Last Taken 01/19/22] handicap placcard #1 ea 12/15/22 [Rx Last Taken Unknown] cholecalciferol (vitamin D3) 25 mcg (1,000 unit) capsule (Vitamin D3) 50 mcg PO DAILY 03/23/23 [History Last Taken Unknown] atorvastatin 10 mg tablet (Lipitor) 10 mg PO QHS cholesterol #90 tabs 05/20/23 [Rx Last Taken Unknown] budesonide 3 mg capsule,delayed,extended release 9 mg (3 x 3 mg) PO QAM microscopic colitis #270 ea 07/25/23 [Rx Last Taken Unknown] diphenoxylate-atropine 2.5 mg-0.025 mg tablet (Lomotil) 1 tab PO TID PRN diarrhea #90 tabs 08/16/23 [Rx Last Taken Unknown] metoprolol tartrate 25 mg tablet 12.5 mg (1/2 x 25 mg) PO BID #90 tabs 02/02/24 [Rx Last Taken Unknown] nintedanib 150 mg capsule (Ofev) 150 mg PO Q12H 02/07/24 [History Last Taken Unknown] Allergy/AdvReac Type Severity Reaction Status Date / Time No Known Allergies Allergy Verified 02/29/24 12:40 Family History Father Heart disease Colon cancer Mother Breast cancer CVA (cerebral vascular accident) Grandmother CVA (cerebral vascular accident) Brother Diabetes Surgical History H/O mastectomy History of adjustable gastric banding History of appendectomy History of cataract surgery History of coronary artery stent placement (11/25/20) History of left heart catheterization (05/15/08) History of radiofrequency ablation procedure for cardiac arrhythmia (05/15/19) History of tonsillectomy Hx of abdominoplasty Hx of breast reduction, elective Social History household members: spouse Smoking Status: Never smoker alcohol intake: never caffeine: No what type of physical activity do you participate in: swimming and aerobics frequency: 3-4 times per week PERI [place] Patient has chronic diarrhea. She previously had C. difficile and has completed treatment for that but has intermittent diarrhea that is being currently evaluated. Patient lost 60 pounds over the past couple years with her C. difficile. All review of systems were negative except as mentioned above in the history of present illness and the other review of systems. Vital Signs Vital Signs Vital Signs: 02/29/24 12:40 02/29/24 12:44 02/29/24 13:29 Temperature 36.1 C L 36.4 C L Temperature Source Temporal Oral Pulse Rate 107 H 105 H 100 Respiratory Rate 20 H 23 H 20 H Blood Pressure 160/99 H 160/99 H Blood Pressure Mean 119 119 Pulse Ox 98 96 95 Oxygen Delivery Method Room Air Room Air 02/29/24 13:30 02/29/24 13:45 02/29/24 14:00 Temperature Temperature Source Pulse Rate 100 99 97 Respiratory Rate 17 13 18 Blood Pressure 133/79 H 141/83 H 145/75 H Blood Pressure Mean 97 98 95 Pulse Ox 97 96 94 Oxygen Delivery Method 02/29/24 14:15 02/29/24 14:30 Temperature Temperature Source Pulse Rate 93 97 Respiratory Rate 19 H 23 H Blood Pressure 157/93 H 163/138 H Blood Pressure Mean 108 145 Pulse Ox 95 94 Oxygen Delivery Method Weight Weight: 85.3 kg Body Mass Index (BMI) 32.1 Physical Exam Const alert Constitutional Narrative: Alert to self, knew that she was in hospital but cannot specify which hospital. Could not tell me the dates to even the month nor the year. General Appearance: cooperative HEENT normocephalic, head/scalp atraumatic and hearing grossly normal bilaterally Eyes PERRL and EOMs intact bilaterally Eyes Narrative: No icterus Neck no lymphadenopathy Resp normal respiratory effort, no retractions, no use of accessory muscles and clear to auscultation bilaterally Cardio regular rate, regular rhythm, S1 normal heart sound and S2 normal heart sound GI normal to inspection, nondistended, normoactive bowel sounds, soft to palpation, non-tender and non-distended Extremity normal to inspection and no clubbing, cyanosis or edema Neuro moves all extremities Neuro Narrative: Mo strength 5 out of 5 in the upper extremities bilaterally. 2 out of 5 in the lower extremities bilaterally. Sensorium / Orientation: awake, alert and oriented to person; Negative for oriented to place or oriented to time Psych Psych Narrative: Flat affect Results Lab / Micro Data Attestation: I reviewed the patient's lab results. 02/29/24 12:50 02/29/24 12:50 Labs: Laboratory Results - last 24 hr 02/29/24 12:50: WBC 11.4 H, RBC 4.90, Hgb 14.1, Hct 44.0, MCV 89.8, MCH 28.8, MCHC 32.0, RDW Std Deviation 55.6 H, RDW Coeff of [place]restes 17.0 H, Plt Count 325, MPV 10.7, Immature Gran % (Auto) 1.100 H, Neut % (Auto) 57.1, Lymph % (Auto) 24.9, [place] % (Auto) 14.8 H, Eos % (Auto) 1.4, Baso % (Auto) 0.7, Absolute Neuts (auto) 6.5, Absolute Lymphs (auto) 2.83, Nucleated RBC % 0, Diff Path Review May foll, Sodium 138, Potassium 3.4 L, Chloride 101, Carbon Dioxide 28.0, Anion Gap 9, BUN 12, Creatinine 1.03 H, Estim Creat Clear Calc 49.87, Est GFR (MDRD) Af Amer 67, Est GFR (MDRD) Non-Af 55 L, BUN/Creatinine Ratio 11.7, Glucose 122 H, Calcium 9.7, Total Bilirubin 0.90, Direct Bilirubin 0.24, AST 15, ALT 33, Alkaline Phosphatase 112, Troponin I High Sens 42, Total Protein 6.9, Albumin 3.1 L, Globulin 3.8 02/29/24 13:10: Urine Color Yellow, Urine Clarity Clear, Urine pH 6.0, Ur Specific [place] 1.020, Urine Protein 100 H, Urine Glucose (UA) Normal, Urine Ketones 50 H, Urine Occult Blood 10 H, Urine Nitrite Negative, Urine Bilirubin 1 H, Urine Urobilinogen Normal, Ur Leukocyte Esterase 500 H, Urine RBC 0 SEEN, Urine WBC 5-10 SEEN, Ur Squamous Epith Cells 0 SEEN, Urine Bacteria 0 SEEN, Uri ne Mucus 0 SEEN EKG Initial EKG: Attestation: I personally reviewed and interpreted this EKG as follows: Prior EKG tracings: available for review EKG Rhythm Intrepretation: Sinus Rhythm (EKG reports A-fib but there is clear P waves on there.) Imaging Radiology Impression Brain CT 02/29/24 12:44 IMPRESSION: Chronic involutional changes of the brain. Electronically Signed: Jordan Adame MD at 13:45 EDT , Chest X-Ray 02/29/24 13:20 IMPRESSION: Stable examination. No acute abnormality is seen. Electronically Signed: Jordan Adame MD at 13:42 EDT , Assessment & Plan Assessment/Plan (1) Confusion: (2) Debility: PLAN: Plan Encephalopathy, suspect metabolic * Exam is nonfocal. Patient does have bilateral weakness in her lower extremities. Specific gravity is 1.02 so the may be component of dehydration. * Review of medications does not reveal any obvious culprits. is concerned about ninteadanib stating that she has been taking for 3 days but the patient to refutes that saying that she has been taking for about a month. Unclear how long she has been taking that but we do not have a formulary so we will hold off on that. I do not feel that that is the culprit of her confusion, however. * We will give her IV fluids * Check an MRI of the brain. If it is positive for stroke, would recommend doing MRA of the head and neck for completion sake of a stroke. * Additionally, we will have an echocardiogram * Check an ammonia and TSH level Debility * Likely multifactorial least partly due to dehydration. * PT OT evaluate and treat Chronic conditions * History of A-fib. In normal sinus rhythm status post prior history of ablation. Continue with metoprolol tartrate. Patient is not on anticoagulation, presumably because she has been since converted to normal sinus rhythm. * Hyperlipidemia: Continue with atorvastatin * Pulmonary fibrosis: Per the , this was due to radiation fibrosis. Resume nintedanib as outpt. VTE prophylaxis with enoxaparin CODE STATUS: Addressed with patient and her . Patient is DNR Comfort Care arrest no intubation.
--- NOTE | 2024-02-29 15:55 | ECHOD_ITS ---
Reason For Study: TIA/CVA Procedure This was a 2D Doppler, Color Flow transthoracic echocardiogram. The study was technically difficult. Study terminated early per patient request. Exam performed portable in patient room. Left Ventricle Normal LV size. The estimated ejection fraction is 70 %. Unable to assess diastolic dysfunction. No regional wall motion abnormalities noted. Right Ventricle Normal RV size. Normal systolic function. Atria The left and right atria are normal. Mitral Valve There is moderate mitral annular calcification. There is no mitral valve stenosis. Trivial mitral valve insufficiency. Tricuspid Valve There is no tricuspid stenosis. Unable to estimate RV systolic pressure due to inadequate jet, pulmonary artery pressure probably normal. Aortic Valve Trisinus/trileaflet aortic valve. There is no aortic stenosis. No aortic valve insufficiency. Pulmonic Valve There is no pulmonic valvular stenosis. Trivial pulmonic valve insufficiency. Great Vessels Normal aortic root. Pericardium/Pleural No pericardial effusion. MMode/2D Measurements & Calculations LVIDd: 3.7 cm IVSd: 1.4 cm Ao root diam: 3.2 cm LVIDs: 2.4 cm LVPWd: 1.9 cm FS: 33.4 % LA dimension(2D): 3.5 cm Doppler Measurements & Calculations PA V2 max: 94.0 cm/sec PA V2 mean: 60.4 cm/sec ECHO/Echo Complete Interpretation Summary The estimated ejection fraction is 70 %. Unable to assess diastolic dysfunction. Trivial mitral valve insufficiency. Ordering Physician: Chay Wadsworth Referring Physician: JOSE INIGUEZ Performed By: Sobeida Campbell and Student
--- NOTE | 2024-02-29 15:55 | MRI_ITS ---
STUDY: MRI BRAIN WITHOUT CONTRAST REASON FOR EXAM: Female, 73 years old. confusion TECHNIQUE: Standardized multiplanar fat and water weighted pulse sequences were obtained. A COMPARISON: CT head February 29, 2024 HEMISPHERES, CEREBELLUM AND BRAINSTEM: Normal midline developmental anatomy. No Chiari malformation. Unremarkable sella. Cerebellar pontine angles are clear. No evidence of intracranial space occupying mass or mass effect. Moderate periventricular and subcortical T2 hyperintense chronic small vessel white matter ischemic change. No diffusion restriction. No evidence of prior hemorrhage. CSF SPACES: Mild cerebral volume loss compatible with age.. No hydrocephalus. Basal cisterns are patent. VESSELS: 1. There are normal flow voids noted in the great vessels at the skull base ORBITS AND PARANASAL SINUSES: 1. Both globes, extraocular muscles, optic nerves and retrobulbar fat appear unremarkable. 2. Minimal anterior ethmoid sinus mucoperiosteal thickening.. BONY ELEMENTS: Bony elements of the cranial vault, facial skeleton and skull base have normal appearance. SCALP AND SOFT TISSUES: Normal appearance of the soft tissues of the scalp and the visualized face MRI/Brain without Contrast IMPRESSION: 1. No intracranial mass, hemorrhage, or acute territorial infarct. 2. Moderate senescent changes compatible with age. 3. Minimal anterior ethmoid sinus disease. Electronically Signed: Kiran Wagner MD at 19:06 EDT ,
[2024-02-29 16:12] LABS: Ammonia < 10.0 umol/L (11-32)
[2024-02-29] MEDS: 0.9% Normal Saline (1000mL) 1,000 ML 150 ML IV (16:52)
[2024-02-29] MEDS: Potassium Chloride Oral Tablet 10 MEQ PO (16:54)
[2024-02-29 17:01] LABS: Thyroid Stim Hormone (TSH) 2.38 uIU/mL (0.358-3.74)
[2024-02-29] MEDS: Metoprolol Tartrate 25 MG Tablet 12.5 MG PO (21:38)
[2024-02-29] MEDS: Atorvastatin Calcium 10 MG Tablet PO (21:38)
[2024-03-01] VITALS (9 sets, daily range): BP systolic 103–130; BP diastolic 53–85; PULSE 81–88; RESP 16–18; TEMP 36.1–36.8; O2SAT 92–98
[2024-03-01] MEDS: 0.9% Normal Saline (1000mL) 1,000 ML 150 ML IV ×2 (00:42→06:49)
--- NOTE | 2024-03-01 01:01 | NURSING ---
Informed Dr Saavedra of mri results states can stop nih's.
[2024-03-01 06:05] LABS: Absolute Lymphocyte Count 1.96 X10^3/uL (0.83-4.51); Basophil# 0.05 X10^3/uL; Basophil% 0.6 % (0-1); Eosinophil# 0.38 X10^3/uL; Eosinophils% 4.3 % (0-5); Hematocrit 35.5 % (37-47); Hemoglobin 11.4 g/dL (12.0-15.0); Lymphocyte # 1.96 X10^3/ul (0.83-4.51); Lymphocyte % 22.2 % (19-41); Mean Corp Hgb Conc 32.1 g/dL (32-36); Mean Corpuscular Hgb 29.2 pg (27.0-32.0); Mean Platelet Vol. 10.7 fl (6.2-12.0); Monocyte# 1.36 X10^3/uL; Monocyte% 15.4 % (0-10); NRBC Flagged by Analyzer 0 % (0-5); Neutrophil # 4.99 X10^3/uL (2.7-7.7); Neutrophil % 56.7 % (47-70); Platelet Count 269 K/mm3 (150-450); RBC Distribution Width CV 17.2 % (11.6-14.6); RBC Distribution Width SD 57.3 fl (35.1-43.9); White Blood Count 8.8 K/mm3 (4.4-11.0)
[2024-03-01 06:55] LABS: Anion Gap 7 (5-15); BUN 10 mg/dL (7-18); Chloride 111 mmol/L (98-107); Cholesterol 114 mg/dL (200); Creatinine, Serum 0.71 mg/dL (0.55-1.02); EST Glomerular Filtration Rate 85 mL/min (>60); Est Glom Filt Rate - Afr Amer 103 mL/min (>60); Estimated Creatinine Clearance 64.21 ml/min; Glucose 77 mg/dL (74-106); High Density Lipoprotein 58 mg/dL; Potassium 3.3 mmol/L (3.5-5.1); Sodium Level 142 mmol/L (136-145); Triglycerides 72 mg/dL; Very Low Density Lipoprotein 14 mg/dL (5-40)
[2024-03-01] MEDS: Aspirin E.C. 81 MG Tablet PO (08:52)
[2024-03-01] MEDS: Acetaminophen 325 MG Tablet 650 MG PO (08:52)
[2024-03-01] MEDS: Potassium Chloride Oral Tablet 10 MEQ PO (08:52)
[2024-03-01] MEDS: Budesonide 3 MG CAPSULE.EC 9 MG PO (09:01)
[2024-03-01] MEDS: Enoxaparin 40 MG/0.4 ML Syringe SC (09:02)
[2024-03-01] MEDS: Metoprolol Tartrate 25 MG Tablet 12.5 MG PO (09:02)
[2024-03-01] MEDS: Cholecalciferol (VIT D3) 25 MCG TABLET (1,000 UNITS) 50 MCG PO (09:03)
[2024-03-01] MEDS: 0.9% Saline Lock 10 ML Syringe IV (09:18)
[2024-03-01] MEDS: Potassium Chloride Oral Tablet 20 MEQ 40 MEQ PO (09:19)
--- NOTE | 2024-03-01 10:17 | CT_ITS ---
STUDY: CTA CHEST REASON FOR EXAM: Female, 73 years old. Hypoxia RADIATION DOSAGE (If Supplied By Facility): CTDIvol = ( 12.64 ) mGy, DLP = ( 385.52 ) mGycm TECHNIQUE: The examination was performed with the intravenous administration of IV 100mL [id number]-370. Post-processing of the angiographic images was performed, with multiplanar reformation and 3D reconstruction. Individualized dose optimization techniques were used for this CT. COMPARISON: Comparison is made with prior chest radiograph dated February 29, 2024. FINDINGS: There is evidence of bilateral breast prostheses. Status post right axillary fabricio dissection. Normal enhancement of the main pulmonary artery and right and left pulmonary arteries. Normal enhancement of the bilateral peripheral pulmonary arteries. There is no demonstrated pulmonary embolism. Normal thoracic aorta and visualized great vessels. There is no demonstrated aortic dissection. There are calcifications of the coronary arteries. Normal mediastinum. Normal hilar regions. Normal visualized trachea and bronchi. The lungs are well expanded. Mild degree of scarring in both upper and lower lobes more prominent at the lung bases. Normal pleura. Normal chest wall structures. There are degenerative changes of thoracic spine. Gallstones. CT/CTA Chest W/WO Contrast IMPRESSION: No evidence of pulmonary embolism. Electronically Signed: Jordan Adame MD at 10:58 EDT ,
[2024-03-01 11:05] LABS: Erythrocyte Sedimentation Rate 30 mm/hr (0-30)
--- NOTE | 2024-03-01 11:50 | CASEMGMT ---
SHABBIR CM Face to Face with patient for initial transition planning/care coordination assessment. RN CM introduced self and role at [facility]. Patient lying in bed, alert and oriented. Patient willing to participate in assessment and is able to answer all questions appropriately. Care providers, pharmacy, and demographics verified. PCP: Terry Specialists: Amos, pulmonologsit; Friend, GI; Ladonna, restorative aide; Jeanie, ID; Eliceo Escobar, RA [facility]; Magda, ethylbenzene oxidizer; Evangelista, pain; , alternative financing specialist; Preferred Pharmacy: [facility] Insurance: [facility] Prescription Benefit: yes Living Will/HPOA: yes, Derrell Falk LNOK: , daughter Living Arrangements: Patient lives with in a single story home with 3-4 steps and railing to enter the home. Patient is independent for toilet and dressing. assists with bathing. Transportation: DME/HHC: Patient has BSC, shower bench, lift chair, grab bars, walker, transport chair, pulse ox. Patient owns her own concentrator and POC at home. Patient has had [facility] HHC in the past. Patient wishes to discharge home, will monitor for HHC at discharge. Patient states she has no further needs or concerns at this time. CM to follow for discharge planning needs that may arise. Disposition Plan: Patient to discharge home with family support and follow-up plans in place. Will monitor for HHC. Dana WHITFIELD, RN, CM
[2024-03-01 12:01] LABS: Bedside Glucose 131 mg/dL (74-106)
[2024-03-01 12:51] LABS: Lipase 21 U/L (13-75)
[2024-03-01] MEDS: Ceftriaxone 1 GM/50 ML BAG IV (13:43)
[2024-03-01 13:51] LABS: Procalcitonin < 0.04 ng/mL (0.00-0.09)
[2024-03-01 15:25] LABS: Pathologist Review Reviewed
--- NOTE | 2024-03-01 15:36 | PCM.DC.SUM ---
Providers Date of Admission: 02/29/24 Date of Discharge: 03/01/24 Primary Care Physician: Dr. Rito Iniguez MD Reason For Visit: CONFUSION Diagnosis Discharge Diagnosis (1) Confusion: Status: Acute Code(s): R41.0 - Disorientation, unspecified (2) Debility: Status: Acute Code(s): R53.81 - Other malaise Medications at Discharge Home Medications carboxymethylcellulose sodium 0.5 % eye drops (Refresh Tears) 1 drp ophthalmic (eye) 4-8XD PRN Dry Eyes 08/31/18 aspirin 81 mg tablet,delayed release (Adult Low Dose Aspirin) 81 mg PO DAILY 01/19/22 potassium chloride 10 mEq capsule,extended release 10 meq PO BID SUPPLEMENT 01/19/22 handicap placcard #1 ea 12/15/22 cholecalciferol (vitamin D3) 25 mcg (1,000 unit) capsule (Vitamin D3) 50 mcg PO DAILY 03/23/23 atorvastatin 10 mg tablet (Lipitor) 10 mg PO QHS cholesterol #90 tabs 05/20/23 budesonide 3 mg capsule,delayed,extended release 9 mg (3 x 3 mg) PO QAM microscopic colitis #270 ea 07/25/23 diphenoxylate-atropine 2.5 mg-0.025 mg tablet (Lomotil) 1 tab PO TID PRN diarrhea #90 tabs 08/16/23 metoprolol tartrate 25 mg tablet 12.5 mg (1/2 x 25 mg) PO BID #90 tabs 02/02/24 nintedanib 150 mg capsule (Ofev) 150 mg PO Q12H 02/07/24 Hospital Course Procedures 2-D Echocardiogram, EKG and - (CT brain/chest x-ray/MRI brain/CTA chest) Summary of Care Provided Minutes Spent on Discharge: 38 Hospital Course: Mrs. Falk is a 73-year-old female who presented to the emergency department at [facility] on 02/29/2024 with confusion. The patient evidently had a couple bouts of emesis the day prior to her confusion started and per her she had about 3 episodes of bilious vomitus and her appetite had been poor than usual. She states she was not feeling quite right and then yesterday when she awoke she was notably more weak and confused. Her stated she did not know what was going on and was not aware of who he was at the time. Given this he brought her to the emergency department. 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 Her functional status is not all that great and she moves minimally throughout the house. He does have a history of chronic diarrhea for which she follows with Dr. Mock. She is on a new medication for about the last month for her pulmonary fibrosis but states she has been tolerating all that so far and did not think that it caused her nausea and vomiting. Vital signs at the time of admission showed temperature of 36.1, heart rate was 107, respiratory was 20, initial blood pressure was 160/99 with a repeat at 133/79, pulse ox was 98% on room air. CBC on presentation showed a mild leukocytosis with a white count of 11.4 and no left shift was present however she did have a monocytosis at 14.8%. Her chemistry panel showed normal sodium with mild hypokalemia having a potassium of 3.4. Her serum creatinine was elevated from baseline at 1.03 with a baseline of 0.7-1. Her glucose was 122. Liver functions were normal. Ammonia was less than 10. We did obtain cholesterol and her cholesterol is normal without any deviation. Procalcitonin was normal at 0.04. TSH was 2.38. CRP was elevated at 33.2 but her ESR was normal. Her UA was unremarkable for any signs of infection and she did not have any dysuria. A culture was sent and pending at the time of discharge. This will be followed and treatment will be pursued if culture is positive. The brain showed chronic involutional changes but no acute abnormalities. Chest x-ray showed stable findings with no acute changes. CTA of the chest was unremarkable. MRI brain showed no intracranial mass, hemorrhage or acute territorial infarct with moderate senescent changes compatible with age and minimal anterior ethmoid sinus disease. Echocardiogram was performed and showed an EF of 70% with the inability to assess diastolic dysfunction and trivial mitral valve insufficiency. Initially when I evaluated her on the a.m. of 03/01/2024 she was having a little bit of nausea and abdominal pain. She did not really eat breakfast and I did encourage her to eat as we did cover her potassium on an empty stomach. We did also obtained a lipase which was normal. I recommended a CT of her abdomen pelvis however she did not feel she could get contrast and wanted to defer at this time. I went back to see her after she ate and she indicated she felt so much better. Her indicated she was much better at least 10 fold since admission. He states she is back to her baseline mental status and she did eat a good lunch and felt comfortable taking her home. She was evaluated by physical therapy and has some underlying baseline deconditioning due to her baseline functional status however therapy did not feel she needed any ongoing therapy at the time of discharge. With the absence of any significant abnormalities found during her hospital stay, I highly suspect this was transient global amnesia and discussed this with the patient and her . She was able to be discharged home in stable condition on 03/01/2024 with no medication changes. I have asked her to follow-up with her primary care physician within the next 1 to 2 weeks. 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 difficile infection Physical Exam Narrative Patient initially today on initial eval said she was having some abdominal discomfort. I recommended she eat to see if she tolerated it and she did quite well and actually stated that eating made her feel better. She states she feels pretty close back to her baseline and would like to go home if possible. Given the fact that we have not found anything on any of her testing her labs suggestive of why she had confusion I highly suspect she had transient global amnesia and discussed this with her and her . They voiced understanding and were anxious to go home. Const alert, oriented x3, no apparent distress, no limitations and well nourished; Negative for average body habitus or healthy appearing Constitutional Narrative: Obese, older, white female, initially sitting up in bed with her at the bedside and then on reevaluation sitting up in a chair, appears well on reevaluation General Appearance: cooperative, comfortable, well kempt and well developed Orientation / Consciousness: awake, oriented to person, oriented to place and oriented to time Exam Limitations: no limitations Nutritional Appearance: obese HEENT normocephalic, head/scalp atraumatic, hearing grossly normal bilaterally and moist oral mucous membranes HEENT Narrative: Mallampati 2, no thrush Eyes PERRL, EOMs intact bilaterally and conjunctivae normal Eyes Narrative: No scleral icterus Neck no lymphadenopathy and supple Neck Narrative: Trachea midline, no thyroid enlargement Resp normal respiratory effort, no retractions, no use of accessory muscles and No clear to auscultation bilaterally Resp Narrative: Fine scattered inspiratory and expiratory crackles Auscultation: crackles; Negative for rhonchi or wheezes Cardio regular rate, regular rhythm, S1 normal heart sound, S2 normal heart sound, no murmurs, no rub, no gallops and no clicks GI normal to inspection, nondistended, normoactive bowel sounds, soft to palpation and non-tender Extremity no clubbing, cyanosis or edema Extremity Narrative: Pedal pulses are 2+, radial pulses are 2+ Skin no rashes or lesions noted, no wounds, skin turgor normal and no jaundice Neuro oriented x3, CN's II-XII intact bilaterally, moves all extremities and no focal motor deficits Speech: speech normal Psych affect normal Psych Narrative: Very pleasant, eye contact is good, patient interacts appropriately Weight / BMI Weight Weight: 85.3 kg Body Mass Index (BMI) 32.1 ABG / Lab / Microbiology Data 03/01/24 05:35 03/01/24 05:35 Laboratory: Laboratory Results - last 24 hr 02/29/24 12:42: POC Glucose 131 H 02/29/24 12:50: Diff Path Review Reviewed, TSH 2.38 02/29/24 15:37: Ammonia < 10.0 L 03/01/24 05:35: WBC 8.8, RBC 3.90 L, Hgb 11.4 L, Hct 35.5 L, MCV 91.0, MCH 29.2, MCHC 32.1, RDW Std Deviation 57.3 H, RDW Coeff of Orestes 17.2 H, Plt Count 269, MPV 10.7, Immature Gran % (Auto) 0.800, Neut % (Auto) 56.7, Lymph % (Auto) 22.2, [place] % (Auto) 15.4 H, Eos % (Auto) 4.3, Baso % (Auto) 0.6, Absolute Neuts (auto) 5.0, Absolute Lymphs (auto) 1.96, Nucleated RBC % 0, Sodium 142, Potassium 3.3 L, Chloride 111 H, Carbon Dioxide 24.0, Anion Gap 7, BUN 10, Creatinine 0.71, Estim Creat Clear Calc 64.21, Est GFR (MDRD) Af Amer 103, Est GFR (MDRD) Non-Af 85, BUN/Creatinine Ratio 14.0, Glucose 77, Calcium 8.0 L, Triglycerides 72, Cholesterol 114, LDL Cholesterol 42, VLDL Cholesterol 14, HDL Cholesterol 58 03/01/24 10:55: ESR 30, C-React Prot Ext Range 33.20 H, Lipase 21 03/01/24 13:10: Procalcitonin < 0.04 Radiography Diagnostic Testing: Radiology Impression Brain MRI 02/29/24 15:55 IMPRESSION: 1. No intracranial mass, hemorrhage, or acute territorial infarct. 2. Moderate senescent changes compatible with age. 3. Minimal anterior ethmoid sinus disease. Electronically Signed: Kiran Wagner MD at 19:06 EDT , Echocardiogram 02/29/24 15:55 Interpretation Summary The estimated ejection fraction is 70 %. Unable to assess diastolic dysfunction. Trivial mitral valve insufficiency. Ordering Physician: Chay Wadsworth Referring Physician: JOSE INIGUEZ Performed By: Sobeida Campbell and Student Chest CTA 03/01/24 10:17 IMPRESSION: No evidence of pulmonary embolism. Electronically Signed: Jordan Adame MD at 10:58 EDT , D/C Instructions Discharge Diet: No restrictions (Resume previous diet) Discharge Activity: Return to Normal Activity Meaningful Use Info Meaningful Use Meaningful Use Diagnoses (Choose all that apply): None applicable Ischemic Stroke Statin Dosing Therapy Reference: STATIN DOSE THERAPY REFERENCE: * Patients > 75 years receive moderate or high dose statin therapy. * Patients 75 years or YOUNGER should receive HIGH intensity statin dose unless contraindicated. You will be required to document reason for non-treatment if statin daily dose does not meet guidelines. HIGH DOSE STATIN THERAPY DAILY Atorvastatin > than or = to 40 mg Rosuvastatin > than or = to 20 mg Amlodipine + Atorvastatin > than or = to 2.5/40 mg Ezetimibe + Simvastatin 10/80 mg Simvastatin 80mg Discharge Plan Admission Admit Date/Time: 02/29/24 15:11 Primary Reason for Your Visit: Confusion Attending Provider: Alyssa Diaz Primary Care Provider: Rito Iniguez Consulting Providers: Chay Wadsworth Discharge Orders/Prescriptions Prescriptions: Continued Refresh Tears 0.5 % drops 1 drp OPHTHALMIC 4-8XD PRN (Reason: Dry Eyes) (DME) handicap placcard See Rx Instructions .Route .MEDSUPPLY Qty: 1 0RF Rx Instructions: Dx: Debility, Restrictive lung disease exp:5 years budesonide 3 mg capsule,delayed,extend.release 9 mg PO QAM Qty: 270 3RF potassium chloride 10 mEq capsule, extended release 10 meq PO BID aspirin [Adult Low Dose Aspirin] 81 mg tablet,delayed release (DR/EC) 81 mg PO DAILY cholecalciferol (vitamin D3) [Vitamin D3] 25 mcg (1,000 unit) Capsule 50 mcg PO DAILY atorvastatin [Lipitor] 10 mg tablet 10 mg PO QHS Qty: 90 3RF diphenoxylate-atropine [Lomotil] 2.5-0.025 mg tablet 1 tab PO TID PRN (Reason: diarrhea) Qty: 90 2RF metoprolol tartrate 25 mg tablet 12.5 mg PO BID Qty: 90 3RF Ofev 150 mg capsule 150 mg PO Q12H Referrals / Follow Up: Rito Iniguez MD [Primary Care Provider] - Disposition Disposition (needs filled in before D/C Order can be placed): Home, Self Care Charges/Coding Visit Charges Inpatient E&M: 71889 Disch Hosp >30min
--- NOTE | 2024-03-01 15:46 | CASEMGMT ---
Patient has order for discharge. RN CM in to discuss needs at discharge. Patient states she is feeling much better. Patient and deny needs or help at discharge. Patient and had no further questions or concerns.
--- NOTE | 2024-03-01 15:52 | PCM.HOSP.N ---
Hospitalist Note On admission it was anticipated that patient would be a full admission require 48-hour hospitalization however patient improved more quickly than anticipated and was able to be discharged within 24 hours of her admission.
== END 2024-03-01 17:45 | disposition home or self-care (01) | DRG 70 ==
LOC: ED 15:14 → PCU 15:18
PROVIDERS: Emergency Provider Emergency Medicine; PCP Family Medicine; Visit Provider Internal Medicine
DX: G45.4 Transient global amnesia (principal); G93.41 Metabolic encephalopathy; J70.1 Chronic and other pulmonary manifestations due to radiation; I10 Essential (primary) hypertension; E86.0 Dehydration; I25.10 Atherosclerotic heart disease of native coronary artery without angina pectoris; K52.832 Lymphocytic colitis; E78.5 Hyperlipidemia, unspecified; K52.9 Noninfective gastroenteritis and colitis, unspecified; E66.9 Obesity, unspecified; R53.81 Other malaise; Z79.82 Long term (current) use of aspirin; Z79.51 Long term (current) use of inhaled steroids; Z95.5 Presence of coronary angioplasty implant and graft; Z85.3 Personal history of malignant neoplasm of breast; Z68.32 Body mass index [BMI] 32.0-32.9, adult
CPT/HCPCS: 36415; 70450; 70551; 71045; 71275; 80048; 80061; 80076; 81001; 82140; 82962; 83690; 84145; 84443; 84484; 85025; 85652; 86140; 87086; 87088; 92610; 93005; 93306; 97162; 97166; 97802; 99285; J7030; Q9967; A4216

== ENCOUNTER → 2024-03-22 | Outpatient (CLI) | payer MEDICARE, SELFPAY ==
[2020-12-05 14:34] VITALS: BMI 31.7
--- NOTE | 2024-03-22 15:15 | CT_ITS ---
INDICATION: SOLITARY PULMONARY NODULE EXAMINATION: CT CHEST WITHOUT CONTRAST - CT Chest W/O Contrast Injection TECHNIQUE: Helically acquired images were obtained of the chest. A radiation dose optimization technique was used for this scan. IV Contrast dosage and agent: None. COMPARISON: None. FINDINGS: LUNGS, PLEURA AND LARGE AIRWAYS: Mild bilateral peripheral pulmonary scarring. No airspace consolidation, effusion, or pneumothorax. No discrete pulmonary mass or suspicious nodule. HEART AND PERICARDIUM: No cardiomegaly or pericardial effusion. Severe calcified coronary atherosclerosis. VESSELS: Aortic annular calcifications present. Mild scattered aortic arch atherosclerosis without ectasia or intramural hematoma. MEDIASTINUM AND NÉSTOR: No mediastinal or hilar adenopathy. Unremarkable esophagus. Unremarkable thyroid. No endobronchial lesion. . UPPER ABDOMEN: Gallbladder contracted around multiple gallstones without surrounding inflammation or esophageal distention.. BONES: Bilateral breast implants. No suspicious lytic or blastic abnormality. CT/Chest without Contrast IMPRESSION: Mild bilateral peripheral pulmonary scarring. No suspicious pulmonary nodule or evidence of acute airspace disease. Severe calcified coronary atherosclerosis. Electronically Signed: Kiran Wagner MD at 2:54 EDT ,
== END | disposition home or self-care (01) ==
PROVIDERS: PCP Family Medicine; Referring Provider Internal Medicine Pulmonary Disease; Visit Provider Internal Medicine Pulmonary Disease
DX: R91.1 Solitary pulmonary nodule (principal)
CPT/HCPCS: 71250

== ENCOUNTER 2024-04-15 09:14 | Observation (INO) | payer MEDICARE, SELFPAY ==
[2020-12-05 14:34] VITALS: BMI 31.7
[2024-04-15] VITALS (7 sets, daily range): BP systolic 99–156; BP diastolic 68–97; PULSE 71–96; RESP 16–18; TEMP 36.1–36.8; O2SAT 94–99; BMI 30.7
--- NOTE | 2024-04-15 10:21 | EX.ED.UPPERE ---
HPI History of Present Illness Chief Complaint: Upper Extremity Injury Informant: patient Narrative Narrative: 73-year-old female developed painful redness and swelling in her right upper extremity yesterday less than 24 hours ago, it has progressed and is now worse in all the way up her arm. Started spontaneously, no injury. She denies any systemic symptoms such as fevers, chills, malaise, weakness, dyspnea. She has Tami's granulomatosis and gets Rituxan infusions her last one was yesterday and it was in a left upper extremity IV. Additionally, she has a remote history of breast cancer no longer on chemotherapy but she had right mastectomy and lymph node dissection on the right. 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 [facility] Medical History Wears hearing aid Loss of hearing Wears glasses Post-menopausal Cancer Uses wheelchair Walker as ambulation aid Bladder disease Easy bruising Back pain History of diverticulitis Non-smoker Hoarseness Shortness of breath on exertion History of edema History of echocardiogram History of stress test Cardiology follow-up encounter History of atrial fibrillation C. difficile colitis Anxiety Depression Arthritis On home oxygen therapy Colitis Diverticulitis Tami's granulomatosis History of ST elevation myocardial infarction (STEMI) (11/25/20) Atherosclerotic heart disease of [place] coronary artery without angina pectoris History of breast cancer Neuropathy Chronic rhinitis Vitamin deficiency Tear film insufficiency Osteopenia Mixed hyperlipidemia Essential (primary) hypertension Breast cancer Paroxysmal atrial fibrillation Home Medications ?Medication ?Instructions ?Recorded ?Last Taken ?Type carboxymethylcellulose sodium 0.5 1 drp ophthalmic (eye) 4-8XD PRN 08/31/18 01/18/22 History % eye drops (Refresh Tears) Dry Eyes aspirin 81 mg tablet,delayed 81 mg PO DAILY 01/19/22 04/14/24 History release (Adult Low Dose Aspirin) potassium chloride 10 mEq 10 meq PO BID SUPPLEMENT 01/19/22 04/14/24 History capsule,extended release handicap placcard #1 ea 12/15/22 Unknown Rx cholecalciferol (vitamin D3) 25 50 mcg PO DAILY 03/23/23 04/14/24 History mcg (1,000 unit) capsule (Vitamin D3) atorvastatin 10 mg tablet (Lipitor) 10 mg PO QHS cholesterol #90 tabs 05/20/23 04/14/24 Rx budesonide 3 mg 9 mg (3 x 3 mg) PO QAM microscopic 07/25/23 04/14/24 Rx capsule,delayed,extended release colitis #270 ea metoprolol tartrate 25 mg tablet 12.5 mg (1/2 x 25 mg) PO BID #90 02/02/24 04/14/24 Rx tabs Allergy/AdvReac Type Severity Reaction Status Date / Time No Known Allergies Allergy Verified 04/15/24 09:15 Family History Father Heart disease Colon cancer Mother Breast cancer CVA (cerebral vascular accident) Grandmother CVA (cerebral vascular accident) Brother Diabetes Surgical History Hx of abdominoplasty Hx of breast reduction, elective History of radiofrequency ablation procedure for cardiac arrhythmia (05/15/19) History of coronary artery stent placement (11/25/20) History of cataract surgery H/O mastectomy History of tonsillectomy History of appendectomy History of adjustable gastric banding History of left heart catheterization (05/15/08) Social History household members: spouse Smoking Status: Never smoker alcohol intake: never caffeine: No what type of physical activity do you participate in: swimming and aerobics frequency: 3-4 times per week ROS ROS ED Constitutional Constitutional ED: Denies chills or fever(s) Musculoskeletal Musculoskeletal: Reports extremity pain; Denies neck pain Integumentary Reports rash; Denies abscess, Abrasions or wounds Neurologic Neurologic: Denies paresthesias or weakness EXAM Physical Exam Const Vital Signs: 04/15/24 09:15 Temperature 97.0 F L Temperature Source Temporal Pulse Rate 88 Respiratory Rate 16 Blood Pressure 135/97 H Blood Pressure Mean 109 Pulse Ox 94 Oxygen Delivery Method Room Air Positive well nourished and well developed General Appearance ED: well developed and NAD HEENT Reports moist mucous membranes Eyes PERRL and EOMs intact bilaterally Neck full ROM and supple Resp normal respiratory effort and clear to auscultation bilaterally Cardio regular rate and regular rhythm Rate: Negative for tachycardic Back/Spine normal ROM and normal to inspection Extremity full ROM Extremity Narrative: Tender dense erythema that blanches throughout the right upper extremity sparing the hand, stocking glove distribution throughout the entire forearm and upper arm. No subcutaneous emphysema or crepitance. No abscess. Everything is mildly swollen. She can move all of the joints without any limitation or difficulty. The erythema progresses up into the axilla but more into the upper lateral chest wall. No abscess or obvious nidus for infection. Neuro oriented x3, no focal motor deficits and no sensory deficits noted Sensorium / Orientation: alert Psych mental status grossly normal and thought process normal Skin no wounds MDM MDM MDM Narrative Medical decision making narrative: This is cellulitis, it looks like erysipelas, does not look like necrotizing fasciitis given that it is mildly tender but without any signs of necrosis or subcutaneous air formation. I am obtaining an x-ray to make sure, is well as blood cultures since it looks like there is probably lymph involvement, and providing IV antibiotics. We discussed the risk and benefits of that. She understands she has a high risk of getting C. difficile but also understands that the risks are higher if she does not treat this with antibiotics. Since the most likely organism is strep, I am giving her Unasyn. 2 view x-ray series of the right forearm and 2 view x-ray series of the right humerus on my interpretation showed no sign of subcutaneous emphysema, again arguing against necrotizing fasciitis here. Patient asking for pain medication which was given. I am not sure if her rubratoxin provides her an acquired immunocompromised state, therefore I recommend admission with IV antibiotics. She is amenable. Lab Data Attestation: I reviewed the patient's lab results. Lab results narrative: Laboratory Tests 04/15/24 Range/Units 10:50 WBC 15.1 H (4.4-11.0) K/mm3 RBC 4.44 (4.2-5.4) M/mm3 Hgb 13.0 (12.0-15.0) g/dL Hct 41.9 (37-47) % MCV 94.4 (81-99) fL MCH 29.3 (27.0-32.0) pg MCHC 31.0 L (32-36) g/dL RDW Std Deviation 58.5 H (35.1-43.9) fl RDW Coeff of Orestes 16.7 H (11.6-14.6) % Plt Count 268 (150-450) K/mm3 MPV 11.1 (6.2-12.0) fl Immature Gran % (Auto) 0.900 (0.0-0.9) % Neut % (Auto) 72.6 H (47-70) % Lymph % (Auto) 16.4 L (19-41) % [place] % (Auto) 8.5 (0-10) % Eos % (Auto) 1.4 (0-5) % Baso % (Auto) 0.2 (0-1) % Absolute Neuts (auto) 10.9 H (2.0-7.7) X10^3/uL Absolute Lymphs (auto) 2.47 (0.83-4.51) X10^3/uL Nucleated RBC % 0 (0-5) % Sodium 139 (136-145) mmol/L Potassium 4.1 (3.5-5.1) mmol/L Chloride 108 H (98-107) mmol/L Carbon Dioxide 27.0 (21.0-32.0) mmol/L Anion Gap 4 L (5-15) BUN 15 (7-18) mg/dL Creatinine 0.97 (0.55-1.02) mg/dL Estim Creat Clear Calc 53.61 ml/min Est GFR (MDRD) Af Amer 72 (>60) mL/min Est GFR (MDRD) Non-Af 59 L (>60) mL/min BUN/Creatinine Ratio 15.5 (10-20) RATIO Glucose 82 (74-106) mg/dL Calcium 9.5 (8.5-10.1) mg/dL Management Discussion w/another healthcare provider: Hospitalist Discharge Plan Dx/Rx/DC Orders Clinical Impression: Cellulitis of right upper extremity Disposition Disposition: Acute Care Hospital [facility]
--- NOTE | 2024-04-15 10:26 | RAD_ITS ---
INDICATION: pain/infection, eval for SQ air EXAMINATION/TECHNIQUE: X-RAY - RIGHT XR Humerus Min 2 Views 2 VIEWS COMPARISON: No relevant prior comparison study available FINDINGS: SOFT TISSUES: No soft tissue swelling or gas. No radiopaque foreign body. BONES/JOINTS: No acute fracture or subluxation.. Normal alignment. Preservation of the joint space.. No sclerotic or destructive changes observed. RAD/Humerus min 2 Views IMPRESSION: Unremarkable examination.
--- NOTE | 2024-04-15 10:26 | RAD_ITS ---
INDICATION: pain/infection, eval for SQ air EXAMINATION/TECHNIQUE: X-RAY - RIGHT XR Forearm 2 Views 2 VIEWS COMPARISON: No relevant prior comparison study available FINDINGS: SOFT TISSUES: No soft tissue swelling or gas. No radiopaque foreign body. BONES/JOINTS: No acute fracture or subluxation.. Normal alignment. Preservation of the joint space.. No sclerotic or destructive changes observed. RAD/Forearm 2 Views IMPRESSION: Unremarkable examination. Electronically Signed: Rashad Riojas MD at 12:29 EDT ,
[2024-04-15 11:03] LABS: Absolute Lymphocyte Count 2.47 X10^3/uL (0.83-4.51); Absolute Neutrophil Count 10.9 X10^3/uL (2.0-7.7); Basophil# 0.03 X10^3/uL; Basophil% 0.2 % (0-1); Eosinophil# 0.21 X10^3/uL; Eosinophils% 1.4 % (0-5); Hematocrit 41.9 % (37-47); Lymphocyte # 2.47 X10^3/ul (0.83-4.51); Lymphocyte % 16.4 % (19-41); Mean Corpuscular Hgb 29.3 pg (27.0-32.0); Mean Corpuscular Volume 94.4 fL (81-99); Mean Platelet Vol. 11.1 fl (6.2-12.0); Monocyte# 1.28 X10^3/uL; Monocyte% 8.5 % (0-10); NRBC Flagged by Analyzer 0 % (0-5); Neutrophil # 10.94 X10^3/uL (2.7-7.7); Neutrophil % 72.6 % (47-70); Platelet Count 268 K/mm3 (150-450); RBC Distribution Width CV 16.7 % (11.6-14.6); RBC Distribution Width SD 58.5 fl (35.1-43.9); Red Blood Count 4.44 M/mm3 (4.2-5.4); White Blood Count 15.1 K/mm3 (4.4-11.0)
[2024-04-15 11:14] LABS: Anion Gap 4 (5-15); BUN 15 mg/dL (7-18); BUN/Creat Ratio 15.5 RATIO (10-20); Calcium,Total 9.5 mg/dL (8.5-10.1); Chloride 108 mmol/L (98-107); Creatinine, Serum 0.97 mg/dL (0.55-1.02); EST Glomerular Filtration Rate 59 mL/min (>60); Est Glom Filt Rate - Afr Amer 72 mL/min (>60); Estimated Creatinine Clearance 53.61 ml/min; Glucose 82 mg/dL (74-106); Potassium 4.1 mmol/L (3.5-5.1); Sodium Level 139 mmol/L (136-145)
[2024-04-15] MEDS: Ampicillin/Sulbactam 3 GM in 0.9% Normal Saline (100mL MB+) 100 ML IV ×2 (12:01→21:17)
[2024-04-15] MEDS: Morphine 4 MG/ML Syringe IV (12:40)
--- NOTE | 2024-04-15 13:46 | HP.PCM.HOS_ITS ---
HPI - General General Date of Admission: 04/15/24 HPI Narrative ANDRADE SANTOS, is a 73 F who presents to the hospital with 24 hours of the right upper extremity rash as well as arm pain. The pain is mild and she had noticed it prior to the rash. She states that yesterday morning she woke up and had no issues other than a little bit of pain and then at around noon she noticed that her arm was bright red starting at around the wrist and going all the way up into her shoulder and then this morning she noticed that there is redness spreading into the anterior wall of her right chest. She has chronic shortness of breath from a history of Tami's granulomatosis that she is on Rituxan for. She had her last infusion of Rituxan on Tuesday which was in the left arm. She denies any fevers or chills but has a leukocytosis of 15.1 in the ER. Blood cultures are pending. X-ray of her forearm and humerus were negative for fracture did not show any subcutaneous free air. [facility] Medical History (Updated 04/15/24 @ 13:25 by Debi Johnson) TIA (transient ischemic attack) Wears hearing aid Loss of hearing Wears glasses Post-menopausal Cancer Uses wheelchair Walker as ambulation aid Bladder disease Easy bruising Back pain History of diverticulitis Non-smoker Hoarseness Shortness of breath on exertion History of edema History of echocardiogram History of stress test Cardiology follow-up encounter History of atrial fibrillation C. difficile colitis Anxiety Depression Arthritis On home oxygen therapy Colitis Diverticulitis Tami's granulomatosis History of ST elevation myocardial infarction (STEMI) (11/25/20) Atherosclerotic heart disease of [place] coronary artery without angina pectoris History of breast cancer Neuropathy Chronic rhinitis Vitamin deficiency Tear film insufficiency Osteopenia Mixed hyperlipidemia Essential (primary) hypertension Breast cancer Paroxysmal atrial fibrillation Home Medications ?Medication ?Instructions ?Recorded ?Last Taken ?Type carboxymethylcellulose sodium 0.5 1 drp ophthalmic (eye) 4-8XD PRN 08/31/18 01/18/22 History % eye drops (Refresh Tears) Dry Eyes aspirin 81 mg tablet,delayed 81 mg PO DAILY 01/19/22 04/14/24 History release (Adult Low Dose Aspirin) potassium chloride 10 mEq 10 meq PO BID SUPPLEMENT 01/19/22 04/14/24 History capsule,extended release handicap placcard #1 ea 12/15/22 Unknown Rx cholecalciferol (vitamin D3) 25 50 mcg PO DAILY 03/23/23 04/14/24 History mcg (1,000 unit) capsule (Vitamin D3) atorvastatin 10 mg tablet (Lipitor) 10 mg PO QHS cholesterol #90 tabs 05/20/23 04/14/24 Rx budesonide 3 mg 9 mg (3 x 3 mg) PO QAM microscopic 07/25/23 04/14/24 Rx capsule,delayed,extended release colitis #270 ea metoprolol tartrate 25 mg tablet 12.5 mg (1/2 x 25 mg) PO BID #90 02/02/24 04/14/24 Rx tabs Allergy/AdvReac Type Severity Reaction Status Date / Time No Known Allergies Allergy Verified 04/15/24 09:15 Family History Father Heart disease Colon cancer Mother Breast cancer CVA (cerebral vascular accident) Grandmother CVA (cerebral vascular accident) Brother Diabetes Surgical History Hx of abdominoplasty Hx of breast reduction, elective History of radiofrequency ablation procedure for cardiac arrhythmia (05/15/19) History of coronary artery stent placement (11/25/20) History of cataract surgery H/O mastectomy History of tonsillectomy History of appendectomy History of adjustable gastric banding History of left heart catheterization (05/15/08) Social History household members: spouse Smoking Status: Never smoker alcohol intake: never caffeine: No what type of physical activity do you participate in: swimming and aerobics frequency: 3-4 times per week ROS Constitutional Constitutional: Denies chills, fatigue, fever(s) or malaise Eyes Eyes: Denies blurry vision ENT HEENT: Denies headache(s) or nasal discharge Cardiovascular Cardiovascular: Denies chest pain, dyspnea on exertion or syncope Respiratory/Chest Respiratory/Chest: Denies cough, shortness of breath at rest or shortness of breath with exertion Gastrointestinal Gastrointestinal: Denies constipation, diarrhea, nausea or vomiting Genitourinary Genitourinary: Denies dysuria Musculoskeletal Musculoskeletal: Reports arthralgias Integumentary Integumentary: Reports rash Neurologic Neurologic: Denies focal weakness, numbness or tremor(s) Psychiatric Psychiatric: Denies anxiety or depression Vital Signs Vital Signs Vital Signs: 04/15/24 09:15 04/15/24 11:35 04/15/24 12:39 Temperature 97.0 F L 98.1 F 97.6 F L Temperature Source Temporal Temporal Pulse Rate 88 71 78 Respiratory Rate 16 16 16 Respiratory Effort Respiratory Depth Respiratory Pattern Blood Pressure 135/97 H 129/84 H 134/76 H Blood Pressure Mean 109 99 95 Blood Pressure Source Blood Pressure Position Blood Pressure Location Pulse Ox 94 95 99 Oxygen Delivery Method Room Air Room Air 04/15/24 13:07 04/15/24 13:20 Temperature 97.3 F L Temperature Source Temporal Pulse Rate 86 Respiratory Rate 18 Respiratory Effort Normal Non-Labored Respiratory Depth Normal Respiratory Pattern Normal Blood Pressure 156/78 H Blood Pressure Mean 104 Blood Pressure Source Monitor Blood Pressure Position Semi-Fowlers Blood Pressure Location Left Arm Pulse Ox 99 Oxygen Delivery Method Room Air Room Air Weight Weight: 185 lb Body Mass Index (BMI) 30.7 Physical Exam Narrative General: Alert, Oriented x3, Cooperative, No apparent distress HEENT: Atraumatic, PERRLA, EOMI, Normocephalic Oral: Moist Mucosa Neck: Supple, No JVD Lungs: Diminished, Normal air movement, No rhonchi, No wheeze, No rales Cardiovascular: Regular rate, Regular Rhythm, Normal S1, Normal S2, No murmurs Abdomen: Soft, Non Tender, Non-Distended, No Hepato-splenomegaly Extremities: No edema, Capillary Refill Less than 3 Seconds Skin: A blanching red slightly warm rash extending from her right wrist up into her right shoulder essentially 360 degrees with only slight, minimal tenderness with some minimal redness in her right chest Musculoskeletal: No Tenderness to Palpation of Joints or Extremities Neurological: No focal neurological deficits, Motor Exam 5/5 strength throughout, Sensory exam intact to light touch and pain Psych/Mental Status: Normal Affect, Appropriate Results Lab / Micro Data 04/15/24 10:50 04/15/24 10:50 Labs: Laboratory Results - last 24 hr 04/15/24 10:50: WBC 15.1 H, RBC 4.44, Hgb 13.0, Hct 41.9, MCV 94.4, MCH 29.3, M CHC 31.0 L, RDW Std Deviation 58.5 H, RDW Coeff of [place]rest[place] 16.7 H, Plt Count 268, MPV 11.1, Immature Gran % (Auto) 0.900, Neut % (Auto) 72.6 H, Lymph % (Auto) 16.4 L, [place] % (Auto) 8.5, Eos % (Auto) 1.4, Baso % (Auto) 0.2, Absolute Neuts (auto) 10.9 H, Absolute Lymphs (auto) 2.47, Nucleated RBC % 0, Sodium 139, Potassium 4.1, Chloride 108 H, Carbon Dioxide 27.0, Anion Gap 4 L, BUN 15, Creatinine 0.97, Estim Creat Clear Calc 53.61, Est GFR (MDRD) Af Amer 72, Est GFR (MDRD) Non-Af 59 L, BUN/Creatinine Ratio 15.5, Glucose 82, Calcium 9.5 Imaging Radiology Impression Forearm X-Ray 04/15/24 10:26 IMPRESSION: Unremarkable examination. Electronically Signed: Rashad Rioajs MD at 12:29 EDT , Humerus X-Ray 04/15/24 10:26 IMPRESSION: Unremarkable examination. Electronically Signed: Rashad Riojas MD at 12:30 EDT , Assessment & Plan Assessment/Plan (1) Cellulitis of right upper extremity: PLAN: Plan 1. Right upper extremity cellulitis ? This is a little bit of an odd presentation given the sudden onset of redness and no history of spreading redness, she states that the entirety of her right upper extremity was just red yesterday ? Continue with IV Unasyn and blood cultures are pending ? She did not start any outpatient treatment prior to arrival to the ER ?She has no other SIRS criteria other than the leukocytosis and not septic ? This could be a drug reaction as she just received an infusion of Rituxan on Tuesday however she has never had a reaction before and it is a little bit odd that it would be localized only 1 extremity and not diffuse ?She does have a history of recurrent C. difficile infections 2. Tami's granulomatosis ? She is currently stable on Rituxan 3. Essential HTN/HLD/CAD status post stent/A-fib/chronic diastolic CHF ? Blood pressures are stable ? Continue with her home metoprolol as well as Lipitor and aspirin ? We will monitor make adjustments as necessary ? She is status post radiofrequency ablation and she has not had any recurrence of her arrhythmia therefore she is only on aspirin and not full anticoagulation ? Echo in 2020 with an EF of 65% stage II diastolic dysfunction DVT: Ambulation 75 minutes was spent on direct patient care, including documentation as well as chart review and collaboration with colleagues Charges/Coding Visit Charges Inpatient E&M: 79393 Init Hosp L3
[2024-04-15] MEDS: AMYLASE PO (17:13)
[2024-04-15] MEDS: LIPASE PO (17:13)
[2024-04-15] MEDS: [UNRECOGNIZED DRUG - OTHER] PO (17:13)
[2024-04-15] MEDS: PROTEASE PO (17:13)
[2024-04-15] MEDS: Potassium Chloride Oral Tablet 10 MEQ PO (17:15)
[2024-04-15] MEDS: Atorvastatin Calcium 10 MG Tablet PO (21:13)
[2024-04-15] MEDS: Metoprolol Tartrate 25 MG Tablet 12.5 MG PO (21:16)
[2024-04-16 05:51] LABS: Absolute Lymphocyte Count 2.05 X10^3/uL (0.83-4.51); Absolute Neutrophil Count 6.4 X10^3/uL (2.0-7.7); Basophil# 0.06 X10^3/uL; Basophil% 0.6 % (0-1); Eosinophil# 0.26 X10^3/uL; Eosinophils% 2.5 % (0-5); Hematocrit 37.2 % (37-47); Hemoglobin 11.5 g/dL (12.0-15.0); Lymphocyte # 2.05 X10^3/ul (0.83-4.51); Mean Corp Hgb Conc 30.9 g/dL (32-36); Mean Corpuscular Hgb 29.3 pg (27.0-32.0); Mean Corpuscular Volume 94.7 fL (81-99); Mean Platelet Vol. 11.2 fl (6.2-12.0); Monocyte# 1.29 X10^3/uL; Monocyte% 12.6 % (0-10); NRBC Flagged by Analyzer 0 % (0-5); Neutrophil # 6.44 X10^3/uL (2.7-7.7); Neutrophil % 62.8 % (47-70); Platelet Count 257 K/mm3 (150-450); RBC Distribution Width CV 16.8 % (11.6-14.6); RBC Distribution Width SD 59.3 fl (35.1-43.9); Red Blood Count 3.93 M/mm3 (4.2-5.4); White Blood Count 10.3 K/mm3 (4.4-11.0)
[2024-04-16] MEDS: Ampicillin/Sulbactam 3 GM in 0.9% Normal Saline (100mL MB+) 100 ML IV (06:19)
[2024-04-16] MEDS: LIPASE PO ×3 (06:22→12:27)
[2024-04-16] MEDS: [UNRECOGNIZED DRUG - OTHER] PO ×3 (06:22→12:27)
[2024-04-16] MEDS: PROTEASE PO ×3 (06:22→12:27)
[2024-04-16] MEDS: AMYLASE PO ×3 (06:22→12:27)
[2024-04-16 06:30] VITALS: BP 128/67; PULSE 76; RESP 16; TEMP 36.8; O2SAT 95
[2024-04-16 06:48] LABS: Anion Gap 3 (5-15); BUN 20 mg/dL (7-18); BUN/Creat Ratio 21.1 RATIO (10-20); Calcium,Total 9.5 mg/dL (8.5-10.1); Chloride 112 mmol/L (98-107); Creatinine, Serum 0.95 mg/dL (0.55-1.02); EST Glomerular Filtration Rate 61 mL/min (>60); Est Glom Filt Rate - Afr Amer 74 mL/min (>60); Estimated Creatinine Clearance 54.74 ml/min; Glucose 100 mg/dL (74-106); Potassium 4.2 mmol/L (3.5-5.1); Sodium Level 142 mmol/L (136-145)
[2024-04-16 08:40] VITALS: BP 118/78; PULSE 78; RESP 18; TEMP 36.5; O2SAT 95
[2024-04-16] MEDS: Aspirin E.C. 81 MG Tablet PO (08:42)
[2024-04-16] MEDS: Potassium Chloride Oral Tablet 10 MEQ PO (08:42)
[2024-04-16 08:43] VITALS: PULSE 78
[2024-04-16] MEDS: Metoprolol Tartrate 25 MG Tablet 12.5 MG PO (08:43)
[2024-04-16 11:33] VITALS: BP 118/78; PULSE 78; RESP 18; TEMP 36.5; O2SAT 95
--- NOTE | 2024-04-16 11:34 | PCM.DC.SUM ---
Providers Date of Admission: 04/15/24 Date of Discharge: 04/16/24 Primary Care Physician: Dr. Rito Stewart MD Reason For Visit: RIGHT ARM CELLULITIS Diagnosis Discharge Diagnosis (1) Cellulitis of right upper extremity: Status: Acute Code(s): L03.113 - Cellulitis of right upper limb Medications at Discharge Home Medications carboxymethylcellulose sodium 0.5 % eye drops (Refresh Tears) 1 drp ophthalmic (eye) 4-8XD PRN Dry Eyes 08/31/18 aspirin 81 mg tablet,delayed release (Adult Low Dose Aspirin) 81 mg PO DAILY 01/19/22 potassium chloride 10 mEq capsule,extended release 10 meq PO BID SUPPLEMENT 01/19/22 handicap placcard #1 ea 12/15/22 cholecalciferol (vitamin D3) 25 mcg (1,000 unit) capsule (Vitamin D3) 50 mcg PO DAILY 03/23/23 atorvastatin 10 mg tablet (Lipitor) 10 mg PO QHS cholesterol #90 tabs 05/20/23 budesonide 3 mg capsule,delayed,extended release 9 mg (3 x 3 mg) PO QAM microscopic colitis #270 ea 07/25/23 metoprolol tartrate 25 mg tablet 12.5 mg (1/2 x 25 mg) PO BID #90 tabs 02/02/24 [id number] 40,000-126,000-168,000 unit capsule, delay rel (Zenpep) 2 cap PO TID 04/15/24 cephalexin 500 mg capsule 500 mg PO Q8H #15 caps 04/16/24 Hospital Course Operations None Procedures None Summary of Care Provided Minutes Spent on Discharge: 45 Hospital Course: Patient is a 73 y/o female with a PMH as outlined who was admitted via the ED on 04/15/2024 with a complaint of right upper extremity rash and pain for 24 hours prior to admission. She says this gradually worsened and she had redness on her right arm starting at the wrist and going all the way to the shoulder. She was on Rituxan for Tami's granulomatosis. She denied any fever or chills. WBC was elevated at 15.1 on admission and blood cultures were ordered and pending. X-ray of the forearm and humerus were negative for any evidence of fracture. She was admitted and started on IV Unasyn due to concerns for cellulitis. There was concern that this could also possibly be a drug reaction. Patient symptoms improved much quicker than expected. The redness virtually completely resolved and she had no pain. Her white cell count also trended downwards and she felt much better. Patient then requested to be discharged home. Based on her much quicker than expected response, patient was discharged home on 04/16/2024. She is to follow-up with her primary care physician within 1-2 weeks. She was discharged on a 5 day course of PO Cephalexin. Patient was seen and examined prior to discharge. She had no complaints and felt much better. She had an uneventful night. Review of systems otherwise negative. Labs and vitals reviewed. Home meds reviewed and reconciled. Physical Exam Const alert, oriented x3 and no apparent distress General Appearance: cooperative, comfortable and well kempt Orientation / Consciousness: awake Exam Limitations: no limitations HEENT normocephalic, head/scalp atraumatic, hearing grossly normal bilaterally and moist oral mucous membranes Mouth: oral and palatal mucosa normal Eyes PERRL, EOMs intact bilaterally and conjunctivae normal Neck no lymphadenopathy and supple Resp normal respiratory effort, no retractions, no use of accessory muscles and clear to auscultation bilaterally Cardio regular rate, regular rhythm, S1 normal heart sound, S2 normal heart sound and no murmurs GI normal to inspection, nondistended, normoactive bowel sounds, soft to palpation, non-tender and non-distended Extremity normal to inspection, full ROM and no clubbing, cyanosis or edema Skin Skin Narrative: very minimal redness over the RUE, no differential warmth. Neuro oriented x3, CN's II-XII intact bilaterally, moves all extremities, no focal motor deficits and no sensory deficits noted Sensorium / Orientation: awake and alert Motor Exam: strength 5/5 throughout Psych affect normal Weight / BMI Weight Weight: 185 lb Body Mass Index (BMI) 30.7 ABG / Lab / Microbiology Data 04/16/24 05:11 04/16/24 05:11 Laboratory: Laboratory Results - last 24 hr 04/16/24 05:11: WBC 10.3, RBC 3.93 L, Hgb 11.5 L, Hct 37.2, MCV 94.7, MCH 29.3, MCHC 30.9 L, RDW Std Deviation 59.3 H, RDW Coeff of [place]restes 16.8 H, Plt Count 257, MPV 11.2, Immature Gran % (Auto) 1.500 H, Neut % (Auto) 62.8, Lymph % (Auto) 20.0, [place] % (Auto) 12.6 H, Eos % (Auto) 2.5, Baso % (Auto) 0.6, Absolute Neuts (auto) 6.4, Absolute Lymphs (auto) 2.05, Nucleated RBC % 0, Sodium 142, Potassium 4.2, Chloride 112 H, Carbon Dioxide 27.0, Anion Gap 3 L, BUN 20 H, Creatinine 0.95, Estim Creat Clear Calc 54.74, Est GFR (MDRD) Af Amer 74, Est GFR (MDRD) Non-Af 61, BUN/Creatinine Ratio 21.1 H, Glucose 100, Calcium 9.5 Radiography Diagnostic Testing: Radiology Impression Forearm X-Ray 04/15/24 10:26 IMPRESSION: Unremarkable examination. Electronically Signed: Rashad Riojas MD at 12:29 EDT , Humerus X-Ray 04/15/24 10:26 IMPRESSION: Unremarkable examination. Electronically Signed: Rashad Riojas MD at 12:30 EDT , D/C Instructions Discharge Diet: Low fat / Low cholesterol Discharge Activity: Return to Normal Activity Weight Bearing Status: Weight bearing as tolerated Call your doctor if you observe: Fever of 101 or Higher, Shortness of breath, Dizziness, Swelling in the ankles and Chest pain Meaningful Use Info Meaningful Use Meaningful Use Diagnoses (Choose all that apply): None applicable Ischemic Stroke Statin Dosing Therapy Reference: STATIN DOSE THERAPY REFERENCE: * Patients > 75 years receive moderate or high dose statin therapy. * Patients 75 years or YOUNGER should receive HIGH intensity statin dose unless contraindicated. You will be required to document reason for non-treatment if statin daily dose does not meet guidelines. HIGH DOSE STATIN THERAPY DAILY Atorvastatin > than or = to 40 mg Rosuvastatin > than or = to 20 mg Amlodipine + Atorvastatin > than or = to 2.5/40 mg Ezetimibe + Simvastatin 10/80 mg Simvastatin 80mg Discharge Plan Admission Admit Date/Time: 04/15/24 12:27 Primary Reason for Your Visit: cellulitis of the RUE Attending Provider: Jaqui Terrell Primary Care Provider: Rito Stewart Consulting Providers: Bg Samaniego Instructions Patient Instructions: Cellulitis, Cellulitis Dc Discharge Orders/Prescriptions Prescriptions: New cephalexin 500 mg capsule 500 mg PO Q8H Qty: 15 0RF Continued Refresh Tears 0.5 % drops 1 drp OPHTHALMIC 4-8XD PRN (Reason: Dry Eyes) (DME) handicap placcard See Rx Instructions .Route .MEDSUPPLY Qty: 1 0RF Rx Instructions: Dx: Debility, Restrictive lung disease exp:5 years budesonide 3 mg capsule,delayed,extend.release 9 mg PO QAM Qty: 270 3RF potassium chloride 10 mEq capsule, extended release 10 meq PO BID aspirin [Adult Low Dose Aspirin] 81 mg tablet,delayed release (DR/EC) 81 mg PO DAILY cholecalciferol (vitamin D3) [Vitamin D3] 25 mcg (1,000 unit) Capsule 50 mcg PO DAILY Zenpep 40,000-126,000- 168,000 unit capsule,delayed release(DR/EC) 2 cap PO TID Rx Instructions: administer with meals and/or snacks two capsules with meals; one capsule with snacks atorvastatin [Lipitor] 10 mg tablet 10 mg PO QHS Qty: 90 3RF metoprolol tartrate 25 mg tablet 12.5 mg PO BID Qty: 90 3RF Referrals / Follow Up: Rito Stewart MD [Primary Care Provider] - 04/23/24 9:40 am Disposition Disposition (needs filled in before D/C Order can be placed): Home, Self Care Charges/Coding Visit Charges Inpatient E&M: 18639 Disch Hosp >30min
--- NOTE | 2024-04-16 12:19 | CASEMGMT ---
SHABBIR CM into pt room, introduced self and role at [facility]. Pt lying in bed in no distress. PT states no concerns with DC, has a walker at home and lives with . will pick her up to drive her home. Pt states uses O2 as needed, she purchased concentrator and portable tank online.
--- NOTE | 2024-04-16 12:40 | PHA.DC.MC.R ---
Pharmacy [facility] has performed discharge medication reconciliation and counseling for this patient. The patient's discharge medication list was reviewed for discrepancies and discrepancies were resolved. The patient was counseled on the following discharge medications and changes in medications for homegoing were reviewed. 1. KEFLEX The Reason for Use, instructions for use, and potential side effects were reviewed for all new medications. The patient's questions regarding all of their medications were answered. The patient was able to verbally demonstrate an understanding of their discharge medications. The patient was counselled by Kevin Julio PharmD Candidate Medications at Discharge Home Medications carboxymethylcellulose sodium 0.5 % eye drops (Refresh Tears) 1 drp ophthalmic (eye) 4-8XD PRN Dry Eyes 08/31/18 aspirin 81 mg tablet,delayed release (Adult Low Dose Aspirin) 81 mg PO DAILY 01/19/22 potassium chloride 10 mEq capsule,extended release 10 meq PO BID SUPPLEMENT 01/19/22 handicap placcard #1 ea 12/15/22 cholecalciferol (vitamin D3) 25 mcg (1,000 unit) capsule (Vitamin D3) 50 mcg PO DAILY 03/23/23 atorvastatin 10 mg tablet (Lipitor) 10 mg PO QHS cholesterol #90 tabs 05/20/23 budesonide 3 mg capsule,delayed,extended release 9 mg (3 x 3 mg) PO QAM microscopic colitis #270 ea 07/25/23 metoprolol tartrate 25 mg tablet 12.5 mg (1/2 x 25 mg) PO BID #90 tabs 02/02/24 [id number] 40,000-126,000-168,000 unit capsule, delay rel (Zenpep) 2 cap PO TID 04/15/24 cephalexin 500 mg capsule 500 mg PO Q8H #15 caps 04/16/24
== END 2024-04-16 13:49 | disposition home or self-care (01) ==
LOC: ED 12:16 → MS3 12:38
PROVIDERS: Admitting Provider Family Medicine; Emergency Provider Emergency Medicine; PCP Family Medicine; Visit Provider Student in an Organized Health Care Education/Training Program
DX: L03.113 Cellulitis of right upper limb (principal); M31.30 Wegener's granulomatosis without renal involvement; I11.0 Hypertensive heart disease with heart failure; I50.32 Chronic diastolic (congestive) heart failure; I48.0 Paroxysmal atrial fibrillation; R06.02 Shortness of breath; Z79.82 Long term (current) use of aspirin; E78.2 Mixed hyperlipidemia; I10 Essential (primary) hypertension; I25.10 Atherosclerotic heart disease of native coronary artery without angina pectoris; Z79.899 Other long term (current) drug therapy; R21 Rash and other nonspecific skin eruption
CPT/HCPCS: 36415; 73060; 73090; 80048; 85025; 87040; 96365; 96366; 96375; 99221; 99283; J7050; A4216; G0378; J0295

== ENCOUNTER → 2024-06-30 | Outpatient (CLI) | payer MEDICARE, SELFPAY ==
[2020-12-05 14:34] VITALS: BMI 31.7
--- NOTE | 2024-06-30 09:58 | CT_ITS ---
INDICATION: PULMONARY NODULE EXAMINATION: CT Chest W/O Contrast Injection TECHNIQUE: Helically acquired images were obtained of the chest without IV contrast. A radiation dose optimization technique was used for this scan. COMPARISON: 11/25/2020. FINDINGS: Lungs: No pulmonary nodules. Stable subpleural reticulation/fibrosis. Stable bronchiectasis. Mediastinum: The cardiomediastinal silhouette is not enlarged. No mediastinal, hilar or axillary adenopathy. Mild aortic arch and coronary artery calcifications. Pleura: Unremarkable Bones/Soft tissues: No suspicious osseous or soft tissue lesions Upper abdomen: Bariatric device/LAP-BAND encases the GE junction. Gallstones in a contracted gallbladder. CT/Chest without Contrast IMPRESSION: No new pulmonary nodules. No evidence of metastatic disease in the chest. Chronic findings as above. Electronically Signed: Barrie Stapleton MD at 16:43 EDT ,
== END | disposition home or self-care (01) ==
PROVIDERS: PCP Family Medicine; Referring Provider Internal Medicine Pulmonary Disease; Visit Provider Internal Medicine Pulmonary Disease
DX: R91.1 Solitary pulmonary nodule (principal)
CPT/HCPCS: 71250

== ENCOUNTER → 2024-07-21 | Outpatient (CLI) | payer MEDICARE, SELFPAY ==
[2020-12-05 14:34] VITALS: BMI 31.7
[2024-07-25 01:07] LABS: Pancreatic Elastase, Fecal 287 (>200)
== END | disposition home or self-care (01) ==
LOC: LABSPEC 11:25
PROVIDERS: PCP Family Medicine; Referring Provider Internal Medicine Gastroenterology; Visit Provider Internal Medicine Gastroenterology
DX: K86.81 Exocrine pancreatic insufficiency (principal)
CPT/HCPCS: 82653; 86140

== ENCOUNTER 2024-08-15 20:23 | Inpatient (IN) | payer MEDICARE, SELFPAY ==
[2020-12-05 14:34] VITALS: BMI 31.7
[2024-08-15 20:26] VITALS: BP 121/88; PULSE 100; RESP 18; TEMP 36.9; O2SAT 99
[2024-08-15 20:50] VITALS: BMI 34.2
--- NOTE | 2024-08-15 20:52 | ED.VIS.GI ---
HPI HPI - GI History of Present Illness Chief Complaint: Abd Pain Detail of Chief Complaint: Abdominal pain Informant: patient Narrative Narrative: Patient presents with abdominal pain that started 2 or 3 days ago. Patient complains of nausea and vomiting. Pain to the upper abdomen at times worse with food. She denies diarrhea. She denies blood in her stool or black tarry stool. Patient tells me she had an ultrasound recently that was ordered by linen supervisor that showed gallstones. She sees a sql ssis developer that needs to give her clearance to have surgery because she had radiation injury to her left lung when she was treated for her breast cancer. Patient wears as needed oxygen at home 2 L. Patient has not seen a surgeon yet. Patient rates her pain a 10 out of 10 [facility] OF [facility] Medical History TIA (transient ischemic attack) Wears hearing aid Loss of hearing Wears glasses Post-menopausal Cancer Uses wheelchair Walker as ambulation aid Bladder disease Easy bruising Back pain History of diverticulitis Non-smoker Hoarseness Shortness of breath on exertion History of edema History of echocardiogram History of stress test Cardiology follow-up encounter History of atrial fibrillation C. difficile colitis Anxiety Depression Arthritis On home oxygen therapy Colitis Diverticulitis Tami's granulomatosis History of ST elevation myocardial infarction (STEMI) (11/25/20) Atherosclerotic heart disease of [place] coronary artery without angina pectoris History of breast cancer Neuropathy Chronic rhinitis Vitamin deficiency Tear film insufficiency Osteopenia Mixed hyperlipidemia Essential (primary) hypertension Breast cancer Paroxysmal atrial fibrillation Home Medications ?Medication ?Instructions ?Recorded ?Last Taken ?Type carboxymethylcellulose sodium 0.5 1 drp ophthalmic (eye) 4-8XD PRN 08/31/18 01/18/22 History % eye drops (Refresh Tears) Dry Eyes aspirin 81 mg tablet,delayed 81 mg PO DAILY 01/19/22 04/14/24 History release (Adult Low Dose Aspirin) potassium chloride 10 mEq 10 meq PO BID SUPPLEMENT 01/19/22 04/14/24 History capsule,extended release handicap placcard #1 ea 12/15/22 Unknown Rx cholecalciferol (vitamin D3) 25 50 mcg PO DAILY 03/23/23 04/14/24 History mcg (1,000 unit) capsule (Vitamin D3) metoprolol tartrate 25 mg tablet 12.5 mg (1/2 x 25 mg) PO BID #90 02/02/24 04/14/24 Rx tabs qsrcqa-feivsiaw-gsoplar 2 cap PO TID 04/15/24 Unknown History 40,000-126,000-168,000 unit capsule, delay rel (Zenpep) atorvastatin 10 mg tablet (Lipitor) 10 mg PO QHS cholesterol #90 tabs 05/28/24 Unknown Rx vancomycin 125 mg capsule 125 mg PO Q6H 14 days #56 caps 08/07/24 Unknown Rx vibegron 75 mg tablet (Gemtesa) 75 mg PO QDAY 08/07/24 Unknown History cyclosporine 0.05 % eye drops 1 drp EACH EYE Q12H 08/15/24 Unknown History Allergy/AdvReac Type Severity Reaction Status Date / Time No Known Allergies Allergy Verified 08/15/24 20:28 Family History Father Heart disease Colon cancer Mother Breast cancer CVA (cerebral vascular accident) Grandmother CVA (cerebral vascular accident) Brother Diabetes Surgical History Personal history of gastric banding Hx of abdominoplasty Hx of breast reduction, elective History of radiofrequency ablation procedure for cardiac arrhythmia (05/15/19) History of coronary artery stent placement (11/25/20) History of cataract surgery H/O mastectomy History of tonsillectomy History of appendectomy History of adjustable gastric banding History of left heart catheterization (05/15/08) Social History household members: spouse Smoking Status: Never smoker alcohol intake: never caffeine: No what type of physical activity do you participate in: swimming and aerobics frequency: 3-4 times per week ROS ROS ED Review of Systems ROS Unobtainable: other Constitutional Constitutional ED: Reports lethargy; Denies chills, fever(s), sweats or weight loss Eyes Eyes: Denies blurry vision, change in vision or diplopia ENT ENT ED: Denies rhinorrhea or sore throat Cardiovascular Cardiovascular: Denies chest pain, orthopnea or racing heartbeat Respiratory/Chest Respiratory/Chest: Denies cough, dyspnea, dyspnea on exertion, orthopnea or sputum Gastrointestinal Gastrointestinal: Reports abdominal pain, nausea and vomiting; Denies diarrhea Genitourinary Genitourinary ED: Denies dysuria, hematuria or urinary frequency Musculoskeletal Musculoskeletal: Denies arthralgias, back pain, myalgias or neck pain Integumentary Denies abscess, Abrasions or rash Neurologic Neurologic: Denies headache(s) or weakness Psychiatric Psychiatric: Denies anxiety, depression or suicidal thoughts Endocrine Endocrinology: Denies polydipsia, polyphagia or polyuria Hematologic/Lymphatic Hematologic/Lymphatic: Denies easy bleeding, easy bruising or lymphadenopathy Allergic/Immunologic Allergic/Immunologic ED: Denies mouth swelling, tongue swelling or urticaria EXAM Physical Exam Const Vital Signs: 08/15/24 20:26 08/15/24 22:24 Temperature 98.4 F Temperature Source Temporal Pulse Rate 100 98 Respiratory Rate 18 16 Blood Pressure 121/88 H 115/95 H Blood Pressure Mean 99 101 Pulse Ox 99 97 Oxygen Delivery Method Room Air Nasal Cannula Oxygen Flow Rate (L/min) 3 Positive well nourished and well developed General Appearance ED: well developed and NAD HEENT Reports TM's clear and moist mucous membranes normocephalic and atraumatic; Negative for trauma or tenderness Tympanic Membrane ED: Yes TM's clear Eyes PERRL and EOMs intact bilaterally General Eye ED: Negative for pale conjunctiva or scleral icterus Neck no lymphadenopathy, supple and no JVD General: Negative for tenderness Chest Wall inspection of chest normal and palpation of chest normal Chest: Negative for tenderness Resp normal respiratory effort and clear to auscultation bilaterally Effort and Inspection: Negative for respiratory distress or pain with movement Auscultation: Negative for rhonchi, wheezes or diminished lung sounds Cardio regular rate, regular rhythm, S1 normal heart sound, S2 normal heart sound and no murmurs Peripheral Pulses: pulses 2+ throughout GI normal to inspection, nondistended, normoactive bowel sounds, soft to palpation, non-distended and no masses GI Narrative: Tenderness to palpation over the right upper quadrant with guarding and a positive Betancur sign. Patient also has tenderness palpation over the epigastric region with some guarding. No rebound or rigidity. No masses palpated although patient morbidly obese. Back/Spine no CVA tenderness and no thoracic nor lumbar tenderness Extremity normal to inspection General Extremety ED: Negative for edema General Extremity: Negative for edema Neuro oriented x3, CN's II-XII intact bilaterally, no sensory deficits noted and gait normal Sensorium / Orientation: awake, alert, oriented to person, oriented to place and oriented to time Motor Exam: strength 5/5 throughout and strength abnormal Psych mental status grossly normal Skin no rashes or lesions noted and no wounds MDM MDM MDM Narrative Medical decision making narrative: Patient presents with abdominal pain that she has had for several days. She has known gallstones found on a CT scan apparently of her chest where they caught the upper part of the abdomen and gallbladder noted the stones. She has had nausea vomiting and dry heaves. Patient also with history of chronic diarrhea. IV line established. She was medicated with morphine and Zofran she had good pain relief with that. CBC with differential white count 11.1 with hemoglobin 13.8 and platelet count of 286. Chemistries showed a sodium 139 with potassium 2.7 chloride 99. BUN 5 and creatinine 1.01. Glucose 131. Lactate 1.5. AST 21 and ALT 22 as well as alk phos of 95. Lipase normal at 23. Patient had a gallbladder ultrasound that showed gallstones without evidence for cholecystitis. Patient also had a CT scan of the abdomen pelvis that showed gallstones as well as a Lap-Band. Patient also had evidence of acute sigmoid diverticulitis. Patient was ordered IV potassium. She was started on Cipro and Flagyl IV. Case will be discussed with hospitalist to evaluate patient for admission for abdominal pain and diverticulitis and hypokalemia. Lab Data Attestation: I reviewed the patient's lab results. Labs: Laboratory Results - last 24 hr 08/15/24 08/15/24 21:00 22:15 WBC 11.1 H RBC 4.71 Hgb 13.8 Hct 44.0 MCV 93.4 MCH 29.3 MCHC 31.4 L RDW Std Deviation 54.1 H RDW Coeff of [place]rest[place] 15.7 H Plt Count 286 MPV 10.9 Immature Gran % (Auto) 1.000 H Neut % (Auto) 78.0 H Lymph % (Auto) 11.3 L [place] % (Auto) 6.9 Eos % (Auto) 2.3 Baso % (Auto) 0.5 Absolute Neuts (auto) 8.7 H Absolute Lymphs (auto) 1.25 Nucleated RBC % 0 Sodium 139 Potassium 2.7 L* Chloride 99 Carbon Dioxide 28.0 Anion Gap 13 BUN 5 L Creatinine 1.01 Estim Creat Clear Calc 51.63 Est GFR (MDRD) Af Amer 69 Est GFR (MDRD) Non-Af 57 L BUN/Creatinine Ratio 5.0 L Glucose 131 H Lactic Acid 1.5 Calcium 10.1 Total Bilirubin 0.60 AST 21 ALT 22 Alkaline Phosphatase 95 Total Protein 6.7 Albumin 3.1 L Globulin 3.6 Albumin/Globulin Ratio 0.9 Lipase 23 Urine Color Yellow Urine Clarity Sl. Cloudy Urine pH 6.0 Ur Specific [place] 1.025 Urine Protein 30 H Urine Glucose (UA) Normal Urine Ketones 150 A* Urine Occult Blood Negative Urine Nitrite Positive H Urine Bilirubin 1 H Urine Urobilinogen 1 H Ur Leukocyte Esterase 25 H Urine RBC 5-10 SEEN Urine WBC 10-25 SEEN Ur Squamous Epith Cells 5-10 SEEN Calcium Oxalate Crystal RARE Urine Bacteria 1+ Hyaline Casts 0-5 SEEN Urine Mucus 1+ Radiography Diagnostic Testing: Clinical Impression(s) from Imaging Studies Gallbladder Ultrasound 08/15/24 21:58 IMPRESSION: Cholelithiasis with no sonographic evidence of cholecystitis. Electronically Signed: Delmar Shannon MD at 23:05 EDT , Abdomen/Pelvis CT 08/15/24 22:41 IMPRESSION: 1. Sigmoid diverticula with minimal surrounding inflammation compatible with acute diverticulitis. There is no abscess or perforation. 2. Cholelithiasis with no evidence of cholecystitis. Electronically Signed: Delmar Shannon MD at 23:34 EDT , Discharge Plan Dx/Rx/DC Orders Clinical Impression: Abdominal pain, History of breast cancer, Diverticulitis, Acute hypokalemia Disposition Disposition: Acute Care [facility]
[2024-08-15] MEDS: Morphine 4 MG/ML Syringe IV (21:12)
[2024-08-15] MEDS: Ondansetron 4 MG/2 ML Vial IV (21:13)
[2024-08-15] MEDS: 0.9% Normal Saline (1000mL) 1,000 ML 999 ML IV (21:13)
[2024-08-15 21:23] LABS: Absolute Lymphocyte Count 1.25 X10^3/uL (0.83-4.51); Absolute Neutrophil Count 8.7 X10^3/uL (2.0-7.7); Basophil# 0.06 X10^3/uL; Basophil% 0.5 % (0-1); Eosinophil# 0.25 X10^3/uL; Eosinophils% 2.3 % (0-5); Hemoglobin 13.8 g/dL (12.0-15.0); Lymphocyte # 1.25 X10^3/ul (0.83-4.51); Lymphocyte % 11.3 % (19-41); Mean Corp Hgb Conc 31.4 g/dL (32-36); Mean Corpuscular Hgb 29.3 pg (27.0-32.0); Mean Corpuscular Volume 93.4 fL (81-99); Mean Platelet Vol. 10.9 fl (6.2-12.0); Monocyte# 0.76 X10^3/uL; Monocyte% 6.9 % (0-10); NRBC Flagged by Analyzer 0 % (0-5); Neutrophil # 8.66 X10^3/uL (2.7-7.7); Platelet Count 286 K/mm3 (150-450); RBC Distribution Width CV 15.7 % (11.6-14.6); RBC Distribution Width SD 54.1 fl (35.1-43.9); Red Blood Count 4.71 M/mm3 (4.2-5.4); White Blood Count 11.1 K/mm3 (4.4-11.0)
[2024-08-15 21:48] LABS: ALB/GLOB Ratio 0.9 RATIO (0.9-2.4); AST(SGOT) 21 U/L (15-37); Alanine Aminotransfer ALT/SGPT 22 U/L (13-56); Albumin, Serum 3.1 g/dL (3.2-5.0); Alkaline Phosphatase 95 U/L (45-117); Anion Gap 13 (5-15); BUN 5 mg/dL (7-18); Calcium,Total 10.1 mg/dL (8.5-10.1); Chloride 99 mmol/L (98-107); Creatinine, Serum 1.01 mg/dL (0.55-1.02); EST Glomerular Filtration Rate 57 mL/min (>60); Est Glom Filt Rate - Afr Amer 69 mL/min (>60); Estimated Creatinine Clearance 51.63 ml/min; Globulin 3.6 g/dL (2.2-4.2); Glucose 131 mg/dL (74-106); Lipase 23 U/L (13-75); Potassium 2.7 mmol/L (3.5-5.1); Protein, Total 6.7 g/dL (6.4-8.2); Sodium Level 139 mmol/L (136-145)
[2024-08-15 21:50] LABS: Lactic Acid 1.5 mmol/L (0.4-1.9)
--- NOTE | 2024-08-15 21:58 | US_ITS ---
EXAM: US ABDOMEN LIMITED, RIGHT UPPER QUADRANT CLINICAL INDICATION: abdominal pain TECHNIQUE: Real-time ultrasound of the right upper quadrant with image documentation. COMPARISON: No relevant prior studies available. FINDINGS: LIVER: The liver measures 12.7 cm in length. There is normal echotexture. No intrahepatic biliary ductal dilation. GALLBLADDER: The gallbladder wall measures 2 mm. There are echogenic foci in the gallbladder compatible with gallstones. No pericholecystic fluid. Negative sonographic Betancur''s sign. COMMON BILE DUCT: Common bile duct measures 6 mm. The proximal common bile duct is within normal limits for the patient''s age. PANCREAS: Patella pancreas is obscured by overlying bowel gas. RIGHT KIDNEY: The right kidney measures 9.6 x 3.3 x 3.7 cm. The right renal cortex measures 1.2 cm. There is no hydronephrosis. No shadowing calculus. No focal lesion or perinephric collection is demonstrated. US/Gallbladder IMPRESSION: Cholelithiasis with no sonographic evidence of cholecystitis. Electronically Signed: Delmar Shannon MD at 23:05 EDT ,
[2024-08-15 22:22] LABS: Color, Urine Yellow (Yellow); Glucose, Dipstick Normal (Normal); Leukocyte Esterase-Dipstick 25 /ul (Negative); Nitrite-Dipstick Positive (Negative); Occult Blood-Urine Negative /ul (Negative); Protein-Dipstick 30 mg/dl (Negative); Specific Gravity, Urine 1.025 (1.002-1.030); Urine Clarity Sl. Cloudy (Clear); Urine Urobilinogen 1 mg/dl (Normal)
[2024-08-15 22:24] VITALS: BP 115/95; PULSE 98; RESP 16; O2SAT 97
[2024-08-15 22:29] LABS: Ketone-Dipstick 150 mg/dl (Negative); Urine Bilirubin Dipstick 1 mg/dL (Negative)
[2024-08-15] MEDS: Potassium Chloride 10mEq/100mL 10 MEQ/100 ML IV.SOLN. 100 MEQ IV BOLUS (22:39)
--- NOTE | 2024-08-15 22:41 | CT_ITS ---
EXAM: CT ABDOMEN AND PELVIS WITH INTRAVENOUS CONTRAST CLINICAL INDICATION: abdominal pain TECHNIQUE: Helically acquired images were obtained of the abdomen and pelvis with intravenous contrast. This CT exam was performed using one or more of the following dose reduction techniques: automated exposure control, adjustment of the mA and/or kV according to patient size, and/or use of iterative reconstruction technique. CONTRAST: IV 100mL [id number] COMPARISON: 01/19/2022 FINDINGS: LOWER THORAX: There is scarring in the lung bases. No cardiomegaly. No significant pericardial effusion. ABDOMEN: LIVER: Unremarkable. Homogeneous. No focal mass. GALLBLADDER AND BILE DUCTS: There are multiple gallstones present but no inflammation. There is sigmoid diverticula. There is surrounding formation compatible with acute diverticulitis. There is no abscess or perforation. No gallbladder distention or wall edema. No intra- or extrahepatic biliary ductal dilation. PANCREAS: Unremarkable. No focal cystic or solid mass. SPLEEN: Unremarkable. Normal size without focal cystic or solid mass. ADRENALS: Unremarkable. No nodules. KIDNEYS AND URETERS: Unremarkable. Normal renal size and position. No hydronephrosis. STOMACH AND BOWEL: There is a gastric band in place. PELVIS: APPENDIX: No evidence of acute appendicitis. BLADDER: Unremarkable. REPRODUCTIVE: Unremarkable as visualized. No mass. ABDOMEN and PELVIS: INTRAPERITONEAL SPACE: Unremarkable. No ascites or other fluid collection. No free air. BONES/JOINTS: Unremarkable. No suspicious lytic or blastic abnormality. SOFT TISSUES: Unremarkable. No discrete abdominal or pelvic wall hernia. VASCULATURE: Unremarkable. Abdominal aorta is non-dilated. LYMPH NODES: Unremarkable. No enlarged lymph nodes. CT/Abdomen/Pelvis W IV Cont ONLY IMPRESSION: 1. Sigmoid diverticula with minimal surrounding inflammation compatible with acute diverticulitis. There is no abscess or perforation. 2. Cholelithiasis with no evidence of cholecystitis. Electronically Signed: Delmar Shannon MD at 23:34 EDT ,
[2024-08-15 22:45] LABS: Hyaline Cast 0-5 SEEN /lpf (0-5)
[2024-08-15 22:46] LABS: White Blood Cells 10-25 SEEN /hpf (0-5)
[2024-08-15 22:47] LABS: Bacteria 1+ /hpf (None Seen); Red Blood Cells-Urine 5-10 SEEN /hpf (0-5)
[2024-08-15 22:48] LABS: Calcium Oxalate Crystals Ur RARE /hpf (<or=2+)
[2024-08-15 22:49] LABS: Mucous, Urine 1+ /hpf (<or=2+); Squamous Epithelial Cells - UA 5-10 SEEN /hpf (5-10)
--- NOTE | 2024-08-15 23:55 | PCM.HP.STD ---
[facility] - General General Date of Admission: 08/15/24 Date of Service: 08/15/24 Chief Complaint: Abdominal pain for 2 to 3 days, nausea and vomiting. History of gallstone. [facility] Narrative ANDRADE SANTOS, is a 74 F came to ED with abdominal pain that started 2 to 3 days ago along with nausea and vomiting. Her pain is mainly on the right upper quadrant, worse with food, 10/10 intensity. She states she has chronic moderate diarrhea for about [address] Mock. He denies black tarry stool or hematochezia. She has history of diverticulitis in the past but Dr. Mock told her that her diarrhea is from dumping from gallbladder as it is not functioning well. She is referred to surgeon as an outpatient and will need pulmonary clearance as an outpatient as she has not radiation pneumonitis from breast cancer radiotherapy. Patient on 2-3 L of as needed oxygen at home She is stated that her said she is warm but did not measure temperature. In ED she was given morphine her pain has subsided. Nausea and vomiting is also subsided. For last 3 days she is not having diarrhea as she attributes that she has not eaten much. CT abdomen/pelvis was done in ED and which shows sigmoid diverticulitis. She has history of diverticulitis and C. difficile colitis and in the past was treated with 2 rounds of Dificid [facility] Medical History TIA (transient ischemic attack) Wears hearing aid Loss of hearing Wears glasses Post-menopausal Cancer Uses wheelchair Walker as ambulation aid Bladder disease Easy bruising Back pain History of diverticulitis Non-smoker Hoarseness Shortness of breath on exertion History of edema History of echocardiogram History of stress test Cardiology follow-up encounter History of atrial fibrillation C. difficile colitis Anxiety Depression Arthritis On home oxygen therapy Colitis Diverticulitis Tami's granulomatosis History of ST elevation myocardial infarction (STEMI) (11/25/20) Atherosclerotic heart disease of [place] coronary artery without angina pectoris History of breast cancer Neuropathy Chronic rhinitis Vitamin deficiency Tear film insufficiency Osteopenia Mixed hyperlipidemia Essential (primary) hypertension Breast cancer Paroxysmal atrial fibrillation Home Medications ?Medication ?Instructions ?Recorded ?Last Taken ?Type carboxymethylcellulose sodium 0.5 1 drp ophthalmic (eye) 4-8XD PRN 08/31/18 01/18/22 History % eye drops (Refresh Tears) Dry Eyes aspirin 81 mg tablet,delayed 81 mg PO DAILY 01/19/22 04/14/24 History release (Adult Low Dose Aspirin) potassium chloride 10 mEq 10 meq PO BID SUPPLEMENT 01/19/22 04/14/24 History capsule,extended release handicap placcard #1 ea 12/15/22 Unknown Rx cholecalciferol (vitamin D3) 25 50 mcg PO DAILY 03/23/23 04/14/24 History mcg (1,000 unit) capsule (Vitamin D3) metoprolol tartrate 25 mg tablet 12.5 mg (1/2 x 25 mg) PO BID #90 02/02/24 04/14/24 Rx tabs [id number] 2 cap PO TID 04/15/24 Unknown History 40,000-126,000-168,000 unit capsule, delay rel (Zenpep) atorvastatin 10 mg tablet (Lipitor) 10 mg PO QHS cholesterol #90 tabs 05/28/24 Unknown Rx vancomycin 125 mg capsule 125 mg PO Q6H diarrhea 14 days #56 08/07/24 Unknown Rx caps vibegron 75 mg tablet (Gemtesa) 75 mg PO QDAY 08/07/24 Unknown History cyclosporine 0.05 % eye drops 1 drp EACH EYE Q12H 08/15/24 Unknown History Allergy/AdvReac Type Severity Reaction Status Date / Time No Known Allergies Allergy Verified 08/15/24 20:28 Family History Father Heart disease Colon cancer Mother Breast cancer CVA (cerebral vascular accident) Grandmother CVA (cerebral vascular accident) Brother Diabetes Surgical History Personal history of gastric banding Hx of abdominoplasty Hx of breast reduction, elective History of radiofrequency ablation procedure for cardiac arrhythmia (05/15/19) History of coronary artery stent placement (11/25/20) History of cataract surgery H/O mastectomy History of tonsillectomy History of appendectomy History of adjustable gastric banding History of left heart catheterization (05/15/08) Social History household members: spouse Smoking Status: Never smoker alcohol intake: never caffeine: No what type of physical activity do you participate in: swimming and aerobics frequency: 3-4 times per week ROS ROS Narrative Constitutional: Reports acute onset of fatigue and weakness. No documented fever HEENT: Reports systems reviewed and no addt'l complaints, except as documented Respiratory/Chest: Chronic dyspnea on exertion. No acute shortness of breath or respiratory distress. On O2 as needed CVS: No chest pain or pressure or tightness. Gastrointestinal: Has nausea and vomiting at home, improved. Denies coffee ground emesis, hematemesis. Rest as described in HPI Genitourinary: Denies burning urination or new urinary tract symptoms Musculoskeletal: Denies acute joint pain or limited range of motion. No acute injury Neurologic: Denies seizure-like symptoms. skin: Mild chronic scratch from her plate/dog Endocrinology: Reports systems reviewed and no addt'l complaints, except as documented Hematologic/Lymphatic: Reports systems reviewed and no addt'l complaints, except as documented Rest 14 ROS are negative except as mentioned in HPI Vital Signs Vital Signs Vital Signs: 08/15/24 20:26 08/15/24 22:24 Temperature 98.4 F Temperature Source Temporal Pulse Rate 100 98 Respiratory Rate 18 16 Blood Pressure 121/88 H 115/95 H Blood Pressure Mean 99 101 Pulse Ox 99 97 Oxygen Delivery Method Room Air Nasal Cannula Oxygen Flow Rate (L/min) 3 Weight Weight: 199 lb 8.293 oz Body Mass Index (BMI) 34.2 Physical Exam Narrative General: Alert, Oriented x3, Cooperative HEENT: Atraumatic, PERRLA, EOMI, Normocephalic Oral: No Gingival or Mucosal Lesions/ Ulcerations Neck: Supple, No JVD, Negative Carotid Bruits Chest wall/Lungs: Air entry diminished in bilateral lung bases. Bilateral lungs crepitation right worse than left. Mild hypoxia Cardiovascular: Regular rate, Regular Rhythm, Normal S1, Normal S2, No M/G/R Abdomen: Bowel Sounds Present, Soft, Non Tender, Non-Distended. : No dysuria. No renal angle tenderness. No suprapubic tenderness. Extremities: No edema, Capillary Refill Less than 3 Seconds Skin: Mild scratch/bruise from her dog. No features of cellulitis. Musculoskeletal: No Tenderness to Palpation of Joints or Extremities. Muscle strength 5/5 at major joints Neurological: Cranial nerves II-XII grossly intact, DTR 2+/4. No acute focal neurological deficit. Psych/Mental Status: Normal Affect, Appropriate. Results Lab / Micro Data 08/15/24 21:00 08/15/24 21:00 Labs: Laboratory Results - last 24 hr 08/15/24 21:00: WBC 11.1 H, RBC 4.71, Hgb 13.8, Hct 44.0, MCV 93.4, MCH 29.3, MCHC 31.4 L, RDW Std Deviation 54.1 H, RDW Coeff of Orestes 15.7 H, Plt Count 286, MPV 10.9, Immature Gran % (Auto) 1.000 H, Neut % (Auto) 78.0 H, Lymph % (Auto) 11.3 L, [place] % (Auto) 6.9, Eos % (Auto) 2.3, Baso % (Auto) 0.5, Absolute Neuts (auto) 8.7 H, Absolute Lymphs (auto) 1.25, Nucleated RBC % 0, Sodium 139, Potassium 2.7 L*, Chloride 99, Carbon Dioxide 28.0, Anion Gap 13, BUN 5 L, Creatinine 1.01, Estim Creat Clear Calc 51.63, Est GFR (MDRD) Af Amer 69, Est GFR (MDRD) Non-Af 57 L, BUN/Creatinine Ratio 5.0 L, Glucose 131 H, Lactic Acid 1.5, Calcium 10.1, Total Bilirubin 0.60, AST 21, ALT 22, Alkaline Phosphatase 95, Total Protein 6.7, Albumin 3.1 L, Globulin 3.6, Albumin/Globulin Ratio 0.9, Lipase 23 08/15/24 22:15: Urine Color Yellow, Urine Clarity Sl. Cloudy, Urine pH 6.0, Ur Specific [place] 1.025, Urine Protein 30 H, Urine Glucose (UA) Normal, Urine Ketones 150 A*, Urine Occult Blood Negative, Urine Nitrite Positive H, Urine Bilirubin 1 H, Urine Urobilinogen 1 H, Ur Leukocyte Esterase 25 H, Urine RBC 5-10 SEEN, Urine WBC 10-25 SEEN, Ur Squamous Epith Cells 5-10 SEEN, Calcium Oxalate Crystal RARE, Urine Bacteria 1+, Hyaline Casts 0-5 SEEN, Urine Mucus 1+ Imaging Radiology Impression Gallbladder Ultrasound 08/15/24 21:58 IMPRESSION: Cholelithiasis with no sonographic evidence of cholecystitis. Electronically Signed: Delmar Shannon MD at 23:05 EDT , Abdomen/Pelvis CT 08/15/24 22:41 IMPRESSION: 1. Sigmoid diverticula with minimal surrounding inflammation compatible with acute diverticulitis. There is no abscess or perforation. 2. Cholelithiasis with no evidence of cholecystitis. Electronically Signed: Delmar Shannon MD at 23:34 EDT , Assessment & Plan Assessment/Plan (1) Diverticulitis: PLAN: Plan This 74-year-old female came to ED with right upper abdominal pain, nausea and vomiting being admitted for sigmoid diverticulitis 1. Acute sigmoid diverticulitis: CT abdomen/pelvis with IV contrast individually reviewed and shows sigmoid diverticulitis with surrounding inflammation of mesocolon but no abscess or perforation. Patient started on IV Cipro and Flagyl. 2. Acute RUQ abdominal pain probably GB colic:: Patient has nausea and vomiting with right upper quadrant abdominal pain that has subsided with IV morphine. Patient has chronic cholelithiasis with no evidence of cholecystitis and CT abdomen but her abdominal pain presently seems from GB colic. She follows Dr. Mock. She has a history of lymphocytic colitis, recurrent C. difficile colitis and diverticulitis in the past. She also has lab pending of the proximal stomach, duodenal gastric reflux. Last seen in the office on 08/07/2024 and gastric emptying study and HIDA scan were ordered. She was told to follow-up surgeon as an outpatient and pulmonary clearance. 3. Hypokalemia: Potassium 2.7. IV potassium replacement ordered. Serum magnesium and phosphorus level ordered. 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 At that time she was admitted with right upper extremity cellulitis and was thought probably drug reaction from the Rituxan infusion and currently she is not on rituximab. 5. CAD status post stent, history of chronic A-fib status post RFA and chronic HFpEF: Currently patient does not have acute chest pain or cardiac related symptoms. Home medications continued. On metoprolol Lipitor and aspirin. Last echo in 2020 shows EF 65% with stage II diastolic dysfunction. 6. Chronic right lung radiation pneumonitis with chronic dyspnea on exertion and chronic hypoxic respiratory failure: Patient follows tubular splitting machine tender Dr. Mando Rae. She had CA breast with the right sided radiation therapy and was told by Dr. Rae at that she has 40% lung function left on right lung. She is also on 2 to 3 L of O2 at home as needed. 7. Hypertension and dyslipidemia: Blood pressure in normal range. Home medications continued 8. DVT prophylaxis: High risk. Enoxaparin 40 mg subcu daily. Living will/advanced directive/end of life care: Patient does have living will or advanced directive. After discussion of benefits/risks procedures involved with full code, DNR CC arrest and DNR CC, the patient opted for full code. Patient does want artificial life support including intubation, tube feed, ventilator and/chest compression, central venous catheter, vasopressor and DC shock if needed Total time spent in [id number] encounter in discussion of advanced directive 17 minutes. Laboratory Results 08/15/24 21:00: WBC 11.1 H, RBC 4.71, Hgb 13.8, Hct 44.0, MCV 93.4, MCH 29.3, MCHC 31.4 L, RDW Std Deviation 54.1 H, RDW Coeff of Orestes 15.7 H, Plt Count 286, MPV 10.9, Immature Gran % (Auto) 1.000 H, Neut % (Auto) 78.0 H, Lymph % (Auto) 11.3 L, [place] % (Auto) 6.9, Eos % (Auto) 2.3, Baso % (Auto) 0.5, Absolute Neuts (auto) 8.7 H, Absolute Lymphs (auto) 1.25, Nucleated RBC % 0, Sodium 139, Potassium 2.7 L*, Chloride 99, Carbon Dioxide 28.0, Anion Gap 13, BUN 5 L, Creatinine 1.01, Estim Creat Clear Calc 51.63, Est GFR (MDRD) Af Amer 69, Est GFR (MDRD) Non-Af 57 L, BUN/Creatinine Ratio 5.0 L, Glucose 131 H, Lactic Acid 1.5, Calcium 10.1, Total Bilirubin 0.60, AST 21, ALT 22, Alkaline Phosphatase 95, Total Protein 6.7, Albumin 3.1 L, Globulin 3.6, Albumin/Globulin Ratio 0.9, Lipase 23 08/15/24 22:15: Urine Color Yellow, Urine Clarity Sl. Cloudy, Urine pH 6.0, Ur Specific [place] 1.025, Urine Protein 30 H, Urine Glucose (UA) Normal, Urine Ketones 150 A*, Urine Occult Blood Negative, Urine Nitrite Positive H, Urine Bilirubin 1 H, Urine Urobilinogen 1 H, Ur Leukocyte Esterase 25 H, Urine RBC 5-10 SEEN, Urine WBC 10-25 SEEN, Ur Squamous Epith Cells 5-10 SEEN, Calcium Oxalate Crystal RARE, Urine Bacteria 1+, Hyaline Casts 0-5 SEEN, Urine Mucus 1+ Clinical Impression(s) from Imaging Studies Gallbladder Ultrasound 08/15/24 21:58 IMPRESSION: Cholelithiasis with no sonographic evidence of cholecystitis. Electronically Signed: Delmar Shannon MD at 23:05 EDT , Abdomen/Pelvis CT 08/15/24 22:41 IMPRESSION: 1. Sigmoid diverticula with minimal surrounding inflammation compatible with acute diverticulitis. There is no abscess or perforation. 2. Cholelithiasis with no evidence of cholecystitis. Electronically Signed: Delmar Shannon MD at 23:34 EDT , Charges/Coding Visit Charges Inpatient E&M: 29884 Init Hosp L3 Procedures Hospitalists Procedures: 56362 Advncd Care Plan 30 Min
[2024-08-16] VITALS (8 sets, daily range): BP systolic 99–132; BP diastolic 48–78; PULSE 78–106; RESP 16–20; TEMP 36.6–37; O2SAT 94–100; BMI 34.1
[2024-08-16] MEDS: Potassium Chloride 10mEq/100mL 10 MEQ/100 ML IV.SOLN. 100 MEQ IV BOLUS ×3 (00:14→02:03)
[2024-08-16] MEDS: metroNIDAZOLE 500 MG/100 ML BAG 100 MG IV ×2 (00:18→05:38)
[2024-08-16 01:17] LABS: Magnesium 1.4 mg/dL (1.6-2.6)
[2024-08-16 01:21] LABS: Phosphorus 2.5 mg/dL (2.5-4.9)
[2024-08-16] MEDS: Ciprofloxacin 400 MG/200 ML BAG 200 MG IV ×2 (03:15→09:22)
[2024-08-16] MEDS: Lactated Ringers 1,000 ML 100 ML IV (03:30)
[2024-08-16] MEDS: Lactobacillis Acidophilus 1 CAP PO ×3 (05:37→22:49)
[2024-08-16] MEDS: Enoxaparin 40 MG/0.4 ML Syringe SC (05:37)
[2024-08-16 06:26] LABS: Absolute Lymphocyte Count 1.18 X10^3/uL (0.83-4.51); Absolute Neutrophil Count 8.7 X10^3/uL (2.0-7.7); Basophil# 0.05 X10^3/uL; Basophil% 0.4 % (0-1); Eosinophils% 1.7 % (0-5); Hematocrit 37.4 % (37-47); Hemoglobin 11.6 g/dL (12.0-15.0); Lymphocyte # 1.18 X10^3/ul (0.83-4.51); Lymphocyte % 9.8 % (19-41); Mean Corpuscular Hgb 29.4 pg (27.0-32.0); Mean Corpuscular Volume 94.9 fL (81-99); Mean Platelet Vol. 10.7 fl (6.2-12.0); Monocyte# 1.76 X10^3/uL; Monocyte% 14.7 % (0-10); NRBC Flagged by Analyzer 0 % (0-5); Neutrophil # 8.68 X10^3/uL (2.7-7.7); Neutrophil % 72.5 % (47-70); POSITIVE DIFFERENTIAL YES; Platelet Count 220 K/mm3 (150-450); RBC Distribution Width CV 15.9 % (11.6-14.6); RBC Distribution Width SD 55.8 fl (35.1-43.9); Red Blood Count 3.94 M/mm3 (4.2-5.4)
[2024-08-16 06:41] LABS: Differential Indicated SCAN CRITERIA MET
[2024-08-16 07:05] LABS: Differential Comment SCANNED
[2024-08-16 07:13] LABS: Anion Gap 6 (5-15); BUN 4 mg/dL (7-18); BUN/Creat Ratio 5.1 RATIO (10-20); Calcium,Total 8.4 mg/dL (8.5-10.1); Chloride 106 mmol/L (98-107); Creatinine, Serum 0.78 mg/dL (0.55-1.02); EST Glomerular Filtration Rate 76 mL/min (>60); Est Glom Filt Rate - Afr Amer 92 mL/min (>60); Estimated Creatinine Clearance 65.07 ml/min; Glucose 121 mg/dL (74-106); Potassium 3.4 mmol/L (3.5-5.1); Sodium Level 138 mmol/L (136-145)
[2024-08-16] MEDS: Aspirin E.C. 81 MG Tablet PO (08:32)
[2024-08-16] MEDS: Creon 24,000 unit DR Capsule 3 CAP PO ×2 (08:32→18:11)
[2024-08-16] MEDS: Potassium Chloride Oral Tablet 20 MEQ PO (08:32)
--- NOTE | 2024-08-16 09:01 | PCM.PN.HOSP ---
Reason for Visit Reason for Visit: Abdominal pain/nausea and vomiting Subjective Subjective Patient is a 74-year-old white female who presented to the emergency department at [facility] on 08/15/2024 due to abdominal pain and nausea and vomiting that has been going on for about 2 to 3 days prior to presentation. She noted her pain was predominantly in the right upper quadrant and worse with food. She rated it at 10 out of 10 intensity. She also was having moderate diarrhea but this is a chronic issue for her and follows as an outpatient with GI. She denied any hematochezia or melena. She does have a history of diverticulitis in the past. She was told that her diarrhea is from jumping from her gallbladder and it is not functioning well and has been referred to a surgeon as an outpatient but needs pulmonary clearance due to her history of radiation pneumonitis from breast cancer radiotherapy. She wears 2 to 3 L of oxygen as needed at home. Her felt that she has been warmer than normal but no temperature was taken. She not had any chills. Vital signs on presentation showed a temperature of 98.4, heart rate 100, respiratory rate 18, blood pressure 121/88 and pulse ox was 99% on room air. CBC on presentation shows a white count 11.1, hemoglobin was normal. There was a left shift with a 78% neutrophilia. Chemistry panel showed marked hypokalemia with a potassium of 2.7 but other electrolytes were normal and her renal function was normal. Glucose was slightly elevated at 131. Lactic acid was 1.5 and magnesium level was 1.4. Liver functions are completely normal with a normal bilirubin. Lipase was 23. UA had ketones, nitrites, leuk esterase, white cells and bacteria. Gallbladder ultrasound was done initially and showed cholelithiasis with no sonographic evidence of acute cholecystitis. Given lack of abnormality with ultrasound as CT of the abdomen and pelvis was performed and showed sigmoid diverticula with surrounding inflammation compatible with acute diverticulitis but no abscess or perforation. She was started on IV antibiotics with Cipro and Flagyl, given IV fluids, antiemetics and pain medication and admitted to the medical floor for ongoing care. Patient states she feels her nausea is a little bit better today however she looks miserable at the time my evaluation and having active vomiting at the time. Objective Data Objective Data Vital Signs: Vital Signs Temp Pulse Resp BP Pulse Ox O2 Del Method O2 Flow Rate 98.5 F 99 16 110/63 96 Nasal Cannula 3 08/16/24 07:59 08/16/24 07:59 08/16/24 07:59 08/16/24 07:59 08/16/24 07:59 08/16/24 08:03 08/16/24 08:03 Oxygen Flow Rate (L/min) 3 Oxygen Delivery Method Nasal Cannula Weight: 90.2 kg Body Mass Index (BMI) 34.1 Intake & Output: Intake and Output for Last 24 Hours 08/14/24 08/15/24 08/16/24 23:59 23:59 23:59 Intake Total 1100 / 1100 880 / 880 Balance 1100 / 1100 880 / 880 Lab / Micro Data 08/16/24 05:55 08/16/24 05:55 Labs: Laboratory Results - last 24 hr 08/15/24 21:00: WBC 11.1 H, RBC 4.71, Hgb 13.8, Hct 44.0, MCV 93.4, MCH 29.3, MCHC 31.4 L, RDW Std Deviation 54.1 H, RDW Coeff of Orestes 15.7 H, Plt Count 286, MPV 10.9, Immature Gran % (Auto) 1.000 H, Neut % (Auto) 78.0 H, Lymph % (Auto) 11.3 L, [place] % (Auto) 6.9, Eos % (Auto) 2.3, Baso % (Auto) 0.5, Absolute Neuts (auto) 8.7 H, Absolute Lymphs (auto) 1.25, Nucleated RBC % 0, Sodium 139, Potassium 2.7 L*, Chloride 99, Carbon Dioxide 28.0, Anion Gap 13, BUN 5 L, Creatinine 1.01, Estim Creat Clear Calc 51.63, Est GFR (MDRD) Af Amer 69, Est GFR (MDRD) Non-Af 57 L, BUN/Creatinine Ratio 5.0 L, Glucose 131 H, Lactic Acid 1.5, Calcium 10.1, Phosphorus 2.5, Magnesium 1.4 L, Total Bilirubin 0.60, AST 21, ALT 22, Alkaline Phosphatase 95, Total Protein 6.7, Albumin 3.1 L, Globulin 3.6, Albumin/Globulin Ratio 0.9, Lipase 23 08/15/24 22:15: Urine Color Yellow, Urine Clarity Sl. Cloudy, Urine pH 6.0, Ur Specific [place] 1.025, Urine Protein 30 H, Urine Glucose (UA) Normal, Urine Ketones 150 A*, Urine Occult Blood Negative, Urine Nitrite Positive H, Urine Bilirubin 1 H, Urine Urobilinogen 1 H, Ur Leukocyte Esterase 25 H, Urine RBC 5-10 SEEN, Urine WBC 10-25 SEEN, Ur Squamous Epith Cells 5-10 SEEN, Calcium Oxalate Crystal RARE, Urine Bacteria 1+, Hyaline Casts 0-5 SEEN, Urine Mucus 1+ 08/16/24 05:55: WBC 12.0 H, RBC 3.94 L, Hgb 11.6 L, Hct 37.4, MCV 94.9, MCH 29.4, MCHC 31.0 L, RDW Std Deviation 55.8 H, RDW Coeff of Orestes 15.9 H, Plt Count 220, MPV 10.7, Immature Gran % (Auto) 0.900, Neut % (Auto) 72.5 H, Lymph % (Auto) 9.8 L, [place] % (Auto) 14.7 H, Eos % (Auto) 1.7, Baso % (Auto) 0.4, Absolute Neuts (auto) 8.7 H, Absolute Lymphs (auto) 1.18, Nucleated RBC % 0, Differential Comment SCANNED, Diff Path Review March, Sodium 138, Potassium 3.4 L, Chloride 106, Carbon Dioxide 25.0, Anion Gap 6, BUN 4 L, Creatinine 0.78, Estim Creat Clear Calc 65.07, Est GFR (MDRD) Af Amer 92, Est GFR (MDRD) Non-Af 76, BUN/Creatinine Ratio 5.1 L, Glucose 121 H, Calcium 8.4 L Radiography Diagnostic Testing: Radiology Impression Gallbladder Ultrasound 08/15/24 21:58 IMPRESSION: Cholelithiasis with no sonographic evidence of cholecystitis. Electronically Signed: Delmar Shannon MD at 23:05 EDT , Abdomen/Pelvis CT 08/15/24 22:41 IMPRESSION: 1. Sigmoid diverticula with minimal surrounding inflammation compatible with acute diverticulitis. There is no abscess or perforation. 2. Cholelithiasis with no evidence of cholecystitis. Electronically Signed: Delmar Shannon MD at 23:34 EDT , Physical Exam Const alert and oriented x3; Negative for average body habitus or healthy appearing Constitutional Narrative: Obese, older, white female, sitting up in bed, appears miserable with intermittent vomiting throughout my exam, does not appear toxic HEENT head/scalp atraumatic and moist oral mucous membranes HEENT Narrative: Mallampati 2, no thrush Head and Scalp: normocephalic Resp normal respiratory effort, no retractions, no use of accessory muscles and clear to auscultation bilaterally Resp Narrative: Diffuse scattered crackles Auscultation: crackles; Negative for rhonchi or wheezes Cardio regular rate, regular rhythm, S1 normal heart sound, S2 normal heart sound, no murmurs, no rub, no gallops and no clicks GI normal to inspection, nondistended, normoactive bowel sounds and soft to palpation GI Narrative: Mild right upper quadrant to epigastric tenderness Extremity no clubbing, cyanosis or edema Extremity Narrative: Pedal pulses 2+ Neuro oriented x3, moves all extremities and no focal motor deficits Neuro Narrative: Significant generalized weakness Speech: speech normal Psych Psych Narrative: Affect is flat but appropriate for the situation Assessment & Plan Assessment/Plan (1) Diverticulitis: (2) Acute hypokalemia: (3) Abdominal pain: PLAN: Plan Acute sigmoid diverticulitis -With ongoing nausea and vomiting will transition from Cipro and Flagyl to Zosyn as the Flagyl may be exacerbating her nausea -Continue clear liquids for now and as pain improves will advance diet -Will need to continue IV fluids due to ongoing nausea and vomiting and inability to adequately intake p.o. fluids or food -As needed pain medication -As needed antiemetics Acute on chronic right upper quadrant/epigastric pain -HIDA scan obtained and negative -Patient does have chronic cholelithiasis with no evidence of acute cholecystitis -Will consult Dr. Mock -Does not appear the patient has ever had an EGD and this may be appropriate at this time given symptoms -Start Protonix 40 mg IV twice daily Hypokalemia -Potassium 2.7 on admission -Remains low but improved -Will replace with 40 mill equivalents p.o. potassium today -Recheck in a.m. Hypomagnesemia -2 g bolus ordered -Recheck in a.m. Chronic right lung radiation pneumonitis with chronic dyspnea/chronic hypoxic respiratory failure -Follows with Dr. Rae as an outpatient -Had history of breast cancer with right-sided radiation -Wears 2 to 3 L at home as needed History of lymphocytic colitis/recurrent C. difficile colitis/diverticulitis -Continue outpatient GI follow-up -Continue home Zenpep History of Tami's granulomatosis -Has previously been on Rituxan -had reaction to this -On no current chronic treatment -Continue outpatient follow-up CAD/chronic atrial fibrillation/chronic HFpEF/essential HTN/HPL -Continue home metoprolol -Continue home Lipitor -Continue home aspirin -Most recent echo was from 2020 and showed an EF of 65% with stage II diastolic dysfunction DVT prophylaxis -Continue enoxaparin 40 subcu daily CODE STATUS Full code Charges/Coding Visit Charges Inpatient E&M: 51839 Subs Hosp L2
[2024-08-16] MEDS: Potassium Chloride Oral Tablet 20 MEQ 40 MEQ PO (09:17)
[2024-08-16] MEDS: Metoprolol Tartrate 25 MG Tablet 12.5 MG PO ×2 (09:20→22:57)
[2024-08-16] MEDS: Vibegron 75 MG TABLET PO (09:21)
--- NOTE | 2024-08-16 10:38 | NM_ITS ---
CLINICAL: 74-year-old female with history of right upper quadrant abdominal pain and nausea. RADIONUCLIDE HEPATOBILIARY SCINTIGRAPHY COMPARISON: Abdominal ultrasound and CT of the abdomen-pelvis reports 08/15/2024 FINDINGS: Following the intravenous administration of 5.4 mCi of 99m Tc Mebrofenin, hepatobiliary images reveal: 1. Relatively prompt and homogeneous radiopharmaceutical concentration is noted by a normal sized liver. No parenchymal defects are identified. 2. Gallbladder activity is identified at 45 minutes post radiopharmaceutical administration. 3. Small intestinal tract is observed at 15 minutes following tracer injection. 4. Washout of the radiopharmaceutical by the hepatic parenchyma appears qualitatively normal. Cholecystokinin (0.02 ug/kg) was administered intravenously over a 30-minute period. The post CCK gallbladder ejection fraction calculated at 20 minutes following Cholecystokinin administration was noted to be 79.0 % (normal greater than 35%). During 30 minutes of post CCK imaging, there is no scintigraphic evidence of reflux of the radiotracer into the common hepatic duct or refilling of the gallbladder. NM/Hepatobilliary Img w/Pharm Int IMPRESSION: 1. NORMAL 99m Tc Mebrofenin hepatobiliary imaging examination with Cholecystokinin. A. A gallbladder ejection fraction calculated to be greater than 35% following the administration of Cholecystokinin makes the probability of functional hepatobiliary disease (gallbladder and/or sphincter of Oddi dyskinesia) and/or organic hepatobiliary disease (chronic acalculous cholecystitis and/or cystic duct syndrome) to be low. (Zoltan Crawford et al, Journal of Nuclear Medicine 32:1695, 1991). Electronically Signed: Que Cao DO at 14:45 EDT ,
[2024-08-16] MEDS: Magnesium Sulfate 2 GM in Dextrose 5%-Water (100mL Bag) 100 ML IV (10:59)
[2024-08-16] MEDS: proCHLORPERazine 10 MG/2 ML Vial 5 MG IV (11:02)
[2024-08-16 13:56] LABS: Pathologist Review Reviewed
--- NOTE | 2024-08-16 14:35 | CASEMGMT ---
Addendum entered by Mitzi Oseguera 08/16/24 15:21: Updated pt and that it is not known if pt will dc tomorrow, not saying it won't happen but Dr. Diaz is not certain at this time. Original Note: SHABBIR MARINELLI Assessment: Face to Face with pt for initial transition planning/care coordination assessment. SHABBIR MARINELLI introduced self and role at [facility], pt voices understanding and consents to assessment. Pt is A&O x4 and answers all questions appropriately at this time. Pt lying in bed in no distress. Care providers, pharmacy, and demographics verified/updated. Admitting Dx: sigmoid diverticulitis Strata Score: 3 PCP:Terry Specialists:Friend, GI; Sibilia, pulm; Forte, rheum Preferred Pharmacy: [facility] Insurance: [facility] Prescription Benefit: yes LNOK: Derrell White, Living Arrangements: Pt lives with and pt dtr is staying with them in a single story home with 3 steps to enter through the front with a rail. Pt states he is getting a lift for the garage entrance. Pt needs assistance with all ADL/IADLs and provides this. Pt denies concerns at home. Transportation: Pt transports pt to medical appts. DME:2 rollators, power w/c, toilet risers, chair lift to basement, oxygen that is not through a company but bought outright with a portable concentrator, pox, [facility] HHC/SNF: Pt has had HHC in the past but cannot recall the name. Denies SNF hx. Pt states no concerns with going home at time of dc. Discussed homegoing services, pt and decline. Pt provides all care for pt. He states C cannot cook meals for pt or be there when she needs the bathroom so he will continue with their current routine. He states that he needs to go out of town tomorrow and this is the second time he has attempted to do this and has not been able to. He states he has his dtr and granddtr set up to care for the patient while he was gone. Pt asks if pt will be dc'd tomorrow. Updated hospitalist who does not yet know this answer. Pt/ states no further concerns/needs. CM to follow. Advised pt to ask CM if any further question/concerns/needs arise, voices understanding. Pt Goal: Home Plan: Home pending course of hospitalization Vilma SHEA CM
--- NOTE | 2024-08-16 14:48 | CHAPLAIN ---
Type of Pastoral Visit _x__ Initial Visit ___ Follow-up Visit ___ On-call Visit ___ General Patient Visit ___ Spiritual Assessment ___ Family Conference ___ Bereavement ___ Rapid Response ___ Code Blue ___ Other (describe below) Pastoral Care Referral From _x__ Patient ___ Family ___ Nurse ___ Physician ___ Livestock Judging Coach ___ Parcel Post Clerk ___ Other (describe below) Sacrament/Intervention _x__ Active listening ___ Anointing ___ Jehovah'S Witness ___ Bereavement ___ Communion ___ Ellie exploration ___ ___ Life review ___ Prayer ___ Reconciliation ___ Sacrament of Sick _x__ Supportive presence ___ Wedding ___ Other (describe below) Pastoral Comments patient is out of the room for more testing but her is in the room; offered support to spouse; spouse gives details about the pt's long journey of health issues for past two years; patient has faced many 'mountains' to overcome and has gotten very weak; pt is to have surgery in a few days but this admission was unexpected; this shirt cleaner asked how patient and how spouse are handling this situation; spouse declines any need for further support but will let the patient know of offer
[2024-08-16] MEDS: Piperacil/Tazobactam 3.375 GM in 0.9% Normal Saline (50mL MB+) 50 ML IV ×2 (15:27→22:48)
[2024-08-16] MEDS: 0.9% Normal Saline (1000mL) 1,000 ML 75 ML IV (18:12)
[2024-08-16] MEDS: Pantoprazole Sodium 40 MG in 0.9% Normal Saline (100mL MB+) 100 ML 330 MG IV (22:48)
[2024-08-16] MEDS: Atorvastatin Calcium 10 MG Tablet PO (22:49)
[2024-08-17 03:05] VITALS: BP 115/55; PULSE 76; RESP 18; TEMP 36.7; O2SAT 98
--- NOTE | 2024-08-17 07:43 | PCM.HOSP.N ---
Hospitalist Note Pt was NPO after MN for planned EGD today. I explained this to the patient yesterday afternoon when a year the results of the HIDA scan and discussed the plan going forward. Evidently she got very upset last night with regards to being n.p.o. Per charge nurse they tried to calm her down and explain again the reasoning behind this. She was also having ongoing nausea and vomiting quite frequently throughout the day yesterday. The patient became more upset and then elected to leave AGAINST MEDICAL ADVICE. Unfortunately, will not be able to finish up her workup due to her leaving AGAINST MEDICAL ADVICE at this time. She was advised to come back to the hospital with ongoing issues or follow-up with Dr. Mock with whom she follows for her GI tract. We did get a message yesterday that her wanted her discharged today as he to be traveling. I did relay at that time that I didn't think that would happen but would try. This was also explained to the pt at the time we discussed the results of her HIDA scan yesterday late afternoon.
== END 2024-08-17 07:05 | disposition home or self-care (01) | DRG 392 ==
LOC: ED 08-16 00:02 → MS3 08-16 00:14
PROVIDERS: Admitting Provider Internal Medicine; Emergency Provider Emergency Medicine; PCP Family Medicine; Referring Provider Emergency Medicine; Visit Provider Internal Medicine
DX: K57.32 Diverticulitis of large intestine without perforation or abscess without bleeding (principal); J70.0 Acute pulmonary manifestations due to radiation; J96.11 Chronic respiratory failure with hypoxia; I48.20 Chronic atrial fibrillation, unspecified; I50.32 Chronic diastolic (congestive) heart failure; I11.0 Hypertensive heart disease with heart failure; K80.20 Calculus of gallbladder without cholecystitis without obstruction; E87.6 Hypokalemia; E78.2 Mixed hyperlipidemia; I25.10 Atherosclerotic heart disease of native coronary artery without angina pectoris; I25.2 Old myocardial infarction; E83.42 Hypomagnesemia; Z79.82 Long term (current) use of aspirin; Z95.5 Presence of coronary angioplasty implant and graft; Z86.73 Personal history of transient ischemic attack (TIA), and cerebral infarction without residual deficits; Z85.3 Personal history of malignant neoplasm of breast; Z79.899 Other long term (current) drug therapy; Z90.49 Acquired absence of other specified parts of digestive tract
CPT/HCPCS: 36415; 74177; 76705; 78227; 80048; 80053; 81001; 83605; 83690; 83735; 84100; 85025; 97162; 97166; 99284; A9537; J7030; J7040; J7120; Q9967; A4216; J0744; J2405; J2805

== ENCOUNTER 2024-08-30 12:03 | Inpatient (IN) | payer MEDICARE, SELFPAY ==
[2020-12-05 14:34] VITALS: BMI 31.7
[2024-08-30] VITALS (7 sets, daily range): BP systolic 104–116; BP diastolic 60–92; PULSE 87–101; RESP 16–19; TEMP 36.4–36.8; O2SAT 91–100; BMI 32.5; BMI 31.6
--- NOTE | 2024-08-30 13:04 | EX.ED.DYSGE1 ---
HPI History of Present Illness Chief Complaint: Weakness Informant: patient and spouse/S.O. Narrative Narrative: 74-year-old female brought by her for weakness to the point of having difficulty performing ADLs at home and he is not able to lift her to help her up and around. She has been nauseated and vomiting for the past 2 weeks or more. It is to the point where she cannot eat anything without triggering vomiting. She is vomiting at other times as well. It is nonbilious nonbloody from what they are describing. She is having black diarrhea that she states has been an issue for 2 years. No gross blood. Following with GI doctor friend, she states she was told she has gallstones and that has been related to a lot of the symptoms here recently. She denies having any pain in the past couple weeks or fever/chills. No chest pain, shortness of breath, palpitations, syncope. She is urinating but less than usual although she is drinking fluids and states he is trying to push Gatorade. She was admitted for diverticulitis couple weeks ago, but for the past 2 weeks has been at home and this is the first time she has seen anybody else. Outpatient tests were ordered, they are not sure what, and she was referred to a surgeon but they state the appointment is about 1-2 months away and in order to have her gallbladder out they would have to follow-up with pulmonology to get medical clearance and they are very concerned that she has been getting worse and will not have the opportunity to make all of these appointments because they are too far away. [facility] Medical History TIA (transient ischemic attack) Wears hearing aid Loss of hearing Wears glasses Post-menopausal Cancer Uses wheelchair Walker as ambulation aid Bladder disease Easy bruising Back pain History of diverticulitis Non-smoker Hoarseness Shortness of breath on exertion History of edema History of echocardiogram History of stress test Cardiology follow-up encounter History of atrial fibrillation C. difficile colitis Anxiety Depression Arthritis On home oxygen therapy Colitis Diverticulitis Tami's granulomatosis History of ST elevation myocardial infarction (STEMI) (11/25/20) Atherosclerotic heart disease of [place] coronary artery without angina pectoris History of breast cancer Neuropathy Chronic rhinitis Vitamin deficiency Tear film insufficiency Osteopenia Mixed hyperlipidemia Essential (primary) hypertension Breast cancer Paroxysmal atrial fibrillation Home Medications ?Medication ?Instructions ?Recorded ?Last Taken ?Type carboxymethylcellulose sodium 0.5 1 drp ophthalmic (eye) 4-8XD PRN 08/31/18 01/18/22 History % eye drops (Refresh Tears) Dry Eyes aspirin 81 mg tablet,delayed 81 mg PO DAILY 01/19/22 04/14/24 History release (Adult Low Dose Aspirin) potassium chloride 10 mEq 10 meq PO BID SUPPLEMENT 01/19/22 04/14/24 History capsule,extended release handicap placcard #1 ea 12/15/22 Unknown Rx cholecalciferol (vitamin D3) 25 50 mcg PO DAILY 03/23/23 04/14/24 History mcg (1,000 unit) capsule (Vitamin D3) metoprolol tartrate 25 mg tablet 12.5 mg (1/2 x 25 mg) PO BID #90 02/02/24 04/14/24 Rx tabs qlecnp-cjcxjayj-cyhfelg 2 cap PO TID 04/15/24 Unknown History 40,000-126,000-168,000 unit capsule, delay rel (Zenpep) atorvastatin 10 mg tablet (Lipitor) 10 mg PO QHS cholesterol #90 tabs 05/28/24 Unknown Rx vibegron 75 mg tablet (Gemtesa) 75 mg PO QDAY 08/07/24 Unknown History cyclosporine 0.05 % eye drops 1 drp EACH EYE Q12H 08/15/24 Unknown History diphenoxylate-atropine 2.5 1 tab PO TID PRN PRN diarrhea 08/30/24 Unknown History mg-0.025 mg tablet vancomycin 125 mg capsule mg PO 08/30/24 Unknown History Allergy/AdvReac Type Severity Reaction Status Date / Time No Known Allergies Allergy Verified 08/30/24 12:06 Family History Father Heart disease Colon cancer Mother Breast cancer CVA (cerebral vascular accident) Grandmother CVA (cerebral vascular accident) Brother Diabetes Surgical History Personal history of gastric banding Hx of abdominoplasty Hx of breast reduction, elective History of radiofrequency ablation procedure for cardiac arrhythmia (05/15/19) History of coronary artery stent placement (11/25/20) History of cataract surgery H/O mastectomy History of tonsillectomy History of appendectomy History of adjustable gastric banding History of left heart catheterization (05/15/08) Social History household members: spouse Smoking Status: Never smoker alcohol intake: never caffeine: No what type of physical activity do you participate in: swimming and aerobics frequency: 3-4 times per week ROS ROS ED Constitutional Constitutional ED: Reports fatigue, poor appetite and weakness; Denies chills or fever(s) Eyes Eyes: Denies change in vision or diplopia ENT ENT ED: Denies rhinorrhea or sore throat Cardiovascular Cardiovascular: Denies chest pain, palpitations or syncope Respiratory/Chest Respiratory/Chest: Denies cough or dyspnea Gastrointestinal Gastrointestinal: Reports diarrhea, nausea and vomiting; Denies abdominal pain or hematochezia Genitourinary Genitourinary ED: Denies dysuria or hematuria Musculoskeletal Musculoskeletal: Denies back pain or neck pain Integumentary Denies abscess or rash Neurologic Neurologic: Denies headache(s), paresthesias or weakness Psychiatric Psychiatric: Denies anxiety or suicidal thoughts EXAM Physical Exam Const Vital Signs: 08/30/24 12:03 08/30/24 12:03 08/30/24 12:06 Temperature 97.6 F L Temperature Source Temporal Pulse Rate 101 H Respiratory Rate 19 H Respiratory Effort Normal Non-Labored Respiratory Pattern Normal Blood Pressure 115/92 H Blood Pressure Mean 99 Pulse Ox 95 Oxygen Delivery Method Nasal Cannula Oxygen Flow Rate (L/min) 2 08/30/24 14:03 Temperature Temperature Source Pulse Rate Respiratory Rate Respiratory Effort Respiratory Pattern Blood Pressure 115/82 H Blood Pressure Mean 93 Pulse Ox 99 Oxygen Delivery Method Oxygen Flow Rate (L/min) Positive well nourished and well developed General Appearance ED: well developed and NAD HEENT Reports moist mucous membranes normocephalic and atraumatic Eyes PERRL and EOMs intact bilaterally Neck full ROM and supple Resp normal respiratory effort and clear to auscultation bilaterally Cardio regular rate, regular rhythm and no murmurs GI non-tender and non-distended Auscultation: normoactive bowel sounds Palpation: soft Back/Spine no CVA tenderness General Back: other FROM Extremity normal to inspection General Extremety ED: Negative for edema, pulses abnormal or tenderness General Extremity: Negative for edema or pulses abnormal Neuro oriented x3, CN's II-XII intact bilaterally and no sensory deficits noted Sensorium / Orientation: awake and alert Motor Exam: strength 5/5 throughout and general weakness Psych mental status grossly normal Skin no rashes or lesions noted and no wounds MDM MDM MDM Narrative Medical decision making narrative: Labs are noted and unremarkable except for very mild leukocytosis and hypercalcemia, hypokalemia. Liver enzymes and lipase normal. Her abdomen is very benign, certainly am not concerned about acute cholecystitis and she has no pain or tenderness, but I am planning to admit her due to age and functional status. Discussed with hospitalist. History & Record Review Additional record(s) reviewed:: Prior labs (Ultrasound showing cholelithiasis without cholecystitis, prior HIDA normal) Lab Data Attestation: I reviewed the patient's lab results. Labs: Laboratory Results - last 24 hr 08/30/24 12:30 WBC 11.6 H RBC 4.81 Hgb 13.9 Hct 43.6 MCV 90.6 MCH 28.9 MCHC 31.9 L RDW Std Deviation 54.6 H RDW Coeff of Orestes 16.4 H Plt Count 476 H MPV 11.8 Immature Gran % (Auto) 2.000 H Neut % (Auto) 55.0 Lymph % (Auto) 20.3 [place] % (Auto) 18.1 H Eos % (Auto) 3.0 Baso % (Auto) 1.6 H Absolute Neuts (auto) 6.4 Absolute Lymphs (auto) 2.36 Nucleated RBC % 0.2 Diff Path Review May foll Sodium 137 Potassium 3.1 L Chloride 97 L Carbon Dioxide 29.0 Anion Gap 11 BUN 8 Creatinine 0.80 Estim Creat Clear Calc 63.49 Est GFR (MDRD) Af Amer 90 Est GFR (MDRD) Non-Af 75 BUN/Creatinine Ratio 10.1 Glucose 79 Calcium 11.0 H Total Bilirubin 0.60 AST 29 ALT 17 Alkaline Phosphatase 108 Total Protein 6.8 Albumin 2.9 L Globulin 3.9 Albumin/Globulin Ratio 0.7 L Lipase 33 Rhythm Strip Rhythm Strip: Sinus Rhythm Rate: 95 Ectopy: None Management Discussion w/another healthcare provider: Hospitalist Discharge Plan Triage Chief Complaint: Weakness ED Provider: Ector Jean Baptiste Dx/Rx/DC Orders Clinical Impression: Debility, Diarrhea, Acute hypokalemia, Vomiting, Hypercalcemia, Cholelithiasis Prescriptions: No Action Refresh Tears 0.5 % drops 1 drp OPHTHALMIC 4-8XD PRN (Reason: Dry Eyes) (DME) handicap placcard See Rx Instructions .Route .MEDSUPPLY Qty: 1 0RF Rx Instructions: Dx: Debility, Restrictive lung disease exp:5 years Gemtesa 75 mg tablet 75 mg PO QDAY potassium chloride 10 mEq capsule, extended release 10 meq PO BID aspirin [Adult Low Dose Aspirin] 81 mg tablet,delayed release (DR/EC) 81 mg PO DAILY cholecalciferol (vitamin D3) [Vitamin D3] 25 mcg (1,000 unit) Capsule 50 mcg PO DAILY Zenpep 40,000-126,000- 168,000 unit capsule,delayed release(DR/EC) 2 cap PO TID Rx Instructions: administer with meals and/or snacks two capsules with meals; one capsule with snacks cyclosporine 0.05 % drops 1 drp EACH EYE Q12H diphenoxylate-atropine 2.5-0.025 mg tablet 1 tab PO TID PRN PRN (Reason: diarrhea) vancomycin 125 mg capsule PO metoprolol tartrate 25 mg tablet 12.5 mg PO BID Qty: 90 3RF atorvastatin [Lipitor] 10 mg tablet 10 mg PO QHS Qty: 90 3RF Primary Care Provider: Rito Stewart Referrals: Rito Stewart MD [Primary Care Provider] - Print Language: Irish Disposition Disposition: Acute Care Hospital [facility]
[2024-08-30] MEDS: Ondansetron 4 MG/2 ML Vial IV (13:07)
[2024-08-30 13:12] LABS: Absolute Lymphocyte Count 2.36 X10^3/uL (0.83-4.51); Absolute Neutrophil Count 6.4 X10^3/uL (2.0-7.7); Basophil# 0.18 X10^3/uL; Basophil% 1.6 % (0-1); Eosinophil# 0.35 X10^3/uL; Hematocrit 43.6 % (37-47); Hemoglobin 13.9 g/dL (12.0-15.0); Lymphocyte # 2.36 X10^3/ul (0.83-4.51); Lymphocyte % 20.3 % (19-41); Mean Corp Hgb Conc 31.9 g/dL (32-36); Mean Corpuscular Hgb 28.9 pg (27.0-32.0); Mean Corpuscular Volume 90.6 fL (81-99); Mean Platelet Vol. 11.8 fl (6.2-12.0); Monocyte% 18.1 % (0-10); NRBC Flagged by Analyzer 0.2 % (0-5); Neutrophil # 6.39 X10^3/uL (2.7-7.7); POSITIVE DIFFERENTIAL YES; Platelet Count 476 K/mm3 (150-450); RBC Distribution Width CV 16.4 % (11.6-14.6); RBC Distribution Width SD 54.6 fl (35.1-43.9); Red Blood Count 4.81 M/mm3 (4.2-5.4); White Blood Count 11.6 K/mm3 (4.4-11.0)
[2024-08-30 13:15] LABS: Differential Indicated SCAN CRITERIA MET
[2024-08-30 13:43] LABS: ALB/GLOB Ratio 0.7 RATIO (0.9-2.4); AST(SGOT) 29 U/L (15-37); Alanine Aminotransfer ALT/SGPT 17 U/L (13-56); Albumin, Serum 2.9 g/dL (3.2-5.0); Alkaline Phosphatase 108 U/L (45-117); Anion Gap 11 (5-15); BUN 8 mg/dL (7-18); BUN/Creat Ratio 10.1 RATIO (10-20); Chloride 97 mmol/L (98-107); EST Glomerular Filtration Rate 75 mL/min (>60); Est Glom Filt Rate - Afr Amer 90 mL/min (>60); Estimated Creatinine Clearance 63.49 ml/min; Globulin 3.9 g/dL (2.2-4.2); Glucose 79 mg/dL (74-106); Lipase 33 U/L (13-75); Potassium 3.1 mmol/L (3.5-5.1); Protein, Total 6.8 g/dL (6.4-8.2); Sodium Level 137 mmol/L (136-145)
[2024-08-30] MEDS: Potassium Chloride 10mEq/100mL 10 MEQ/100 ML IV.SOLN. 100 MEQ IV BOLUS (15:10)
--- NOTE | 2024-08-30 15:36 | HP.PCM.HOS_ITS ---
HPI - General General Date of Admission: 08/30/24 Date of Service: 08/30/24 Chief Complaint: Intractable nausea and vomiting HPI Narrative ANDRADE SANTOS, is a 74 F with history of Tami's granulomatosis, coronary disease status post stenting, history of breast cancer with radiation, A-fib with radiofrequency ablation 2018, hypertension, lymphocytic colitis who presented [facility] ED 08/30/2024 due to progressive weakness with intractable nausea and vomiting. In the ED lab workup revealed potassium 3.1 but otherwise fairly benign. Given her weakness and inability to tolerate p.o. hospitalist contacted for admission. Patient evaluated at bedside. Patient endorses diarrhea for the past 2 years for which she is following with GI and has been having nausea and vomiting over the past couple of weeks and difficulty tolerating p.o. Her and her have been concerned that her gallbladder may be a problem, did have recent HIDA scan that was negative at last admission earlier this month, but her supposed to follow-up with surgical service in the office for evaluation. Patient reports she has had a cough with thick phlegm for few weeks but baseline with her breathing. No fevers or chills. Does urinate frequently but no burning. No abdominal pain, overall just feels very weak. Of note patient was here for diverticulitis earlier this month and was supposed to have an EGD 08/17 and was made n.p.o. but left AMA in the morning before her scan so this was unable to be completed. [facility] Medical History (Updated 08/30/24 @ 15:[address] Laura Sapp MD) Anxiety Arthritis Atherosclerotic heart disease of [place] coronary artery without angina pectoris Back pain Bladder disease Breast cancer C. difficile colitis Cancer Cardiology follow-up encounter Chronic rhinitis Colitis Depression Diverticulitis Easy bruising Essential (primary) hypertension History of atrial fibrillation History of breast cancer History of diverticulitis History of echocardiogram History of edema History of ST elevation myocardial infarction (STEMI) (11/25/20) History of stress test Hoarseness Loss of hearing Mixed hyperlipidemia Myocardial infarct Neuropathy Non-smoker On home oxygen therapy Osteopenia Paroxysmal atrial fibrillation Post-menopausal Shortness of breath on exertion Tear film insufficiency TIA (transient ischemic attack) Uses wheelchair Vitamin deficiency Walker as ambulation aid Wears glasses Wears hearing aid Tami's granulomatosis Home Medications ?Medication ?Instructions ?Recorded ?Last Taken ?Type carboxymethylcellulose sodium 0.5 1 drp ophthalmic (eye) 4-8XD PRN 08/31/18 01/18/22 History % eye drops (Refresh Tears) Dry Eyes aspirin 81 mg tablet,delayed 81 mg PO DAILY 01/19/22 08/16/24 History release (Adult Low Dose Aspirin) potassium chloride 10 mEq 10 meq PO BID SUPPLEMENT 01/19/22 08/16/24 History capsule,extended release handicap placcard #1 ea 12/15/22 Unknown Rx cholecalciferol (vitamin D3) 25 50 mcg PO DAILY 03/23/23 08/16/24 History mcg (1,000 unit) capsule (Vitamin D3) metoprolol tartrate 25 mg tablet 12.5 mg (1/2 x 25 mg) PO BID #90 02/02/24 08/16/24 Rx tabs iflvhz-vexaddyf-lbharyv 2 cap PO TID 04/15/24 08/16/24 History 40,000-126,000-168,000 unit capsule, delay rel (Zenpep) atorvastatin 10 mg tablet (Lipitor) 10 mg PO QHS cholesterol #90 tabs 05/28/24 08/16/24 Rx vibegron 75 mg tablet (Gemtesa) 75 mg PO QDAY 08/07/24 08/16/24 History cyclosporine 0.05 % eye drops 1 drp EACH EYE Q12H 08/15/24 Unknown History Allergy/AdvReac Type Severity Reaction Status Date / Time No Known Allergies Allergy Verified 08/30/24 12:06 Family History Father Heart disease Colon cancer Mother Breast cancer CVA (cerebral vascular accident) Grandmother CVA (cerebral vascular accident) Brother Diabetes Surgical History (Updated 08/30/24 @ 15:27 by Krys Miles) H/O mastectomy History of adjustable gastric banding History of appendectomy History of appendectomy History of cataract surgery History of coronary artery stent placement (11/25/20) History of left heart catheterization (05/15/08) History of radiofrequency ablation procedure for cardiac arrhythmia (05/15/19) History of tonsillectomy Hx of abdominoplasty Hx of breast reduction, elective Personal history of gastric banding Social History household members: spouse Smoking Status: Never smoker alcohol intake: never caffeine: No what type of physical activity do you participate in: swimming and aerobics frequency: 3-4 times per week ROS ROS Narrative General: Denies fever/chills HENT: Denies headache, denies stuffy nose, denies sore throat EYES: Denies changes in vision Resp: Uses O2 as needed at home, has cough with thick sputum over the past few weeks but does not note acute change in breathing Cardiac: Denies chest pain GI: Denies abdominal pain, chronic diarrhea, has some frequent nausea and vomiting over the past couple weeks with difficulty tolerating p.o. : Frequent urination Extremity: Denies swelling MSK: Generalized weakness Neuro: Denies any numbness/tingling Heme: Denies any bleeding or bruising Skin: Denies rashes Psychiatric: No complaints voiced Vital Signs Vital Signs Vital Signs: 08/30/24 12:03 08/30/24 12:03 08/30/24 12:06 Temperature 97.6 F L Temperature Source Temporal Pulse Rate 101 H Respiratory Rate 19 H Respiratory Effort Normal Non-Labored Respiratory Pattern Normal Blood Pressure 115/92 H Blood Pressure Mean 99 Pulse Ox 95 Oxygen Delivery Method Nasal Cannula Oxygen Flow Rate (L/min) 2 08/30/24 14:03 08/30/24 15:02 Temperature 98 F Temperature Source Pulse Rate 87 Respiratory Rate 16 Respiratory Effort Respiratory Pattern Blood Pressure 115/82 H 115/82 H Blood Pressure Mean 93 93 Pulse Ox 99 99 Oxygen Delivery Method Oxygen Flow Rate (L/min) Weight Weight: 86 kg Body Mass Index (BMI) 32.5 Physical Exam Narrative General: Alert, oriented, no apparent distress HEENT: Atraumatic, normocephalic Eyes: Anicteric, normal conjunctiva, extraocular movements grossly intact Neck: Supple Respiratory: Clear to auscultation bilaterally, normal respiratory effort Cardiovascular: Regular rate GI: Soft, nontender, nondistended Extremities: No edema Musculoskeletal: Moving all extremities Neuro: No overt focal neurological deficits Skin: No rashes appreciated Psych: Cooperative Results Lab / Micro Data 08/30/24 12:30 08/30/24 12:30 Labs: Laboratory Results - last 24 hr 08/30/24 12:30: WBC 11.6 H, RBC 4.81, Hgb 13.9, Hct 43.6, MCV 90.6, MCH 28.9, M CHC 31.9 L, RDW Std Deviation 54.6 H, RDW Coeff of Orestes 16.4 H, Plt Count 476 H, MPV 11.8, Immature Gran % (Auto) 2.000 H, Neut % (Auto) 55.0, Lymph % (Auto) 20.3, [place] % (Auto) 18.1 H, Eos % (Auto) 3.0, Baso % (Auto) 1.6 H, Absolute Neuts (auto) 6.4, Absolute Lymphs (auto) 2.36, Nucleated RBC % 0.2, Diff Path Review March foll, Sodium 137, Potassium 3.1 L, Chloride 97 L, Carbon Dioxide 29.0, Anion Gap 11, BUN 8, Creatinine 0.80, Estim Creat Clear Calc 63.49, Est GFR (MDRD) Af Amer 90, Est GFR (MDRD) Non-Af 75, BUN/Creatinine Ratio 10.1, Glucose 79, Calcium 11.0 H, Total Bilirubin 0.60, AST 29, ALT 17, Alkaline Phosphatase 108, Total Protein 6.8, Albumin 2.9 L, Globulin 3.9, A lbumin/Globulin Ratio 0.7 L, Lipase 33 Rhythm Strip Rhythm Strip: Sinus Rhythm Rate: 95 Ectopy: None Assessment & Plan Assessment/Plan (1) Intractable nausea and vomiting: PLAN: Plan # Intractable nausea and vomiting -Over the past couple weeks, unclear etiology -Did have diverticulitis earlier this month but not presently having any abdominal pain -Patient following with GI in the office -Spoke with provider who will see patient in consult -Gentle IV fluids -Full liquid diet -Antiemetics -Will obtain KUB -Is and Os # Chronic diarrhea -Following with GI on outpatient basis, diarrhea has not necessarily changed do not think we need to repeat stool studies for this at this time -Patient with history of lymphocytic colitis, previously was on budesonide -Continue pancreatic enzyme supplementation -GI consult -Gentle IV fluids #Hx Tami's granulomatosis -Previously on rituximab however no longer taking this # 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 Rae -Uses 2 to 3 L home O2 as needed -I/S # Hypokalemia -Suspect secondary to diarrhea -Replaced -Repeat in a.m., will check mag in a.m. as well # History of coronary artery disease status post stenting -Continue aspirin, atorvastatin, metoprolol #Hx afib s/p RFA -Continue metoprolol #DVT ppx: Lovenox subcu Laura Sapp MD Charges/Coding Visit Charges Inpatient E&M: 28376 Init Hosp L2
[2024-08-30] MEDS: 0.9% Normal Saline (1000mL) 1,000 ML 50 ML IV (17:01)
[2024-08-30] MEDS: 0.9% Saline Lock 10 ML Syringe IV (18:25)
--- NOTE | 2024-08-30 18:30 | RAD_ITS ---
STUDY: X-RAY - ABDOMEN/PELVIS REASON FOR EXAM: Female, 74 years old. intractable n/v TECHNIQUE: Frontal view COMPARISON: None. FINDINGS: Elevated right hemidiaphragm. There is an unremarkable bowel gas pattern. There is no demonstrated free abdominal air. Cholelithiasis. Normal soft tissue structures. Degenerative vertebral changes. RAD/Abdomen Single View (Portable) IMPRESSION: Cholelithiasis. Electronically Signed: Rob Palm DO at 20:17 EDT ,
[2024-08-30] MEDS: Potassium Chloride Oral Tablet 10 MEQ PO (20:47)
[2024-08-30] MEDS: Atorvastatin Calcium 10 MG Tablet PO (20:47)
[2024-08-30] MEDS: MELATONIN 3 MG TABLET PO (20:51)
[2024-08-31] VITALS (9 sets, daily range): BP systolic 98–129; BP diastolic 54–81; PULSE 80–98; RESP 16–18; TEMP 36.2–36.7; O2SAT 85–97
[2024-08-31 05:22] LABS: Absolute Lymphocyte Count 1.72 X10^3/uL (0.83-4.51); Absolute Neutrophil Count 4.6 X10^3/uL (2.0-7.7); Basophil# 0.13 X10^3/uL; Basophil% 1.5 % (0-1); Eosinophil# 0.46 X10^3/uL; Eosinophils% 5.1 % (0-5); Hematocrit 35.9 % (37-47); Hemoglobin 11.4 g/dL (12.0-15.0); Lymphocyte # 1.72 X10^3/ul (0.83-4.51); Lymphocyte % 19.2 % (19-41); Mean Corp Hgb Conc 31.8 g/dL (32-36); Mean Corpuscular Hgb 29.2 pg (27.0-32.0); Mean Corpuscular Volume 92.1 fL (81-99); Mean Platelet Vol. 11.5 fl (6.2-12.0); Monocyte# 1.84 X10^3/uL; Monocyte% 20.5 % (0-10); NRBC Flagged by Analyzer 0 % (0-5); Neutrophil # 4.62 X10^3/uL (2.7-7.7); Neutrophil % 51.6 % (47-70); POSITIVE DIFFERENTIAL YES; Platelet Count 386 K/mm3 (150-450); RBC Distribution Width CV 16.4 % (11.6-14.6); RBC Distribution Width SD 55.3 fl (35.1-43.9)
[2024-08-31 05:59] LABS: Differential Indicated SCAN CRITERIA MET
[2024-08-31 06:16] LABS: ALB/GLOB Ratio 0.8 RATIO (0.9-2.4); AST(SGOT) 25 U/L (15-37); Alanine Aminotransfer ALT/SGPT 14 U/L (13-56); Albumin, Serum 2.1 g/dL (3.2-5.0); Alkaline Phosphatase 81 U/L (45-117); Anion Gap 8 (5-15); BUN 8 mg/dL (7-18); Calcium,Total 9.2 mg/dL (8.5-10.1); Chloride 102 mmol/L (98-107); Creatinine, Serum 0.67 mg/dL (0.55-1.02); EST Glomerular Filtration Rate 91 mL/min (>60); Est Glom Filt Rate - Afr Amer 111 mL/min (>60); Estimated Creatinine Clearance 62.58 ml/min; Globulin 2.8 g/dL (2.2-4.2); Glucose 82 mg/dL (74-106); Magnesium 1.5 mg/dL (1.6-2.6); Potassium 3.2 mmol/L (3.5-5.1); Protein, Total 4.9 g/dL (6.4-8.2); Sodium Level 139 mmol/L (136-145)
[2024-08-31 06:52] LABS: Differential Comment SCANNED
--- NOTE | 2024-08-31 08:04 | PN.HOSP_ITS ---
Reason for Visit Reason for Visit: Diagnoses Nausea with vomiting, unspecified (08/30/24) Subjective Subjective Has eaten very little over the past 10 days. Segment others that is only been 4 teaspoons of applesauce over the past 10 days. States that she gets mucus and starts coughing and then gagging with throws up but states that when she eats at times she will throw up. Objective Data Objective Data Vital Signs: Vital Signs Temp Pulse Resp BP Pulse Ox O2 Del Method O2 Flow Rate 36.6 C 98 16 109/60 95 Nasal Cannula 2 08/31/24 03:10 08/31/24 03:10 08/31/24 03:10 08/31/24 03:10 08/31/24 03:10 08/31/24 07:48 08/31/24 07:48 Oxygen Flow Rate (L/min) 2 Oxygen Delivery Method Nasal Cannula Weight: 83.6 kg Body Mass Index (BMI) 31.6 Intake & Output: Intake and Output for Last 24 Hours 08/29/24 08/30/24 08/31/24 23:59 23:59 23:59 Intake Total 170 / 270 200 / 200 Output Total 350 / 350 Balance 170 / 270 -150 / -150 Lab / Micro Data 08/31/24 04:54 08/31/24 04:54 Labs: Laboratory Results - last 24 hr 08/30/24 12:30: WBC 11.6 H, RBC 4.81, Hgb 13.9, Hct 43.6, MCV 90.6, MCH 28.9, M CHC 31.9 L, RDW Std Deviation 54.6 H, RDW Coeff of Orestes 16.4 H, Plt Count 476 H, MPV 11.8, Immature Gran % (Auto) 2.000 H, Neut % (Auto) 55.0, Lymph % (Auto) 20.3, [place] % (Auto) 18.1 H, Eos % (Auto) 3.0, Baso % (Auto) 1.6 H, Absolute Neuts (auto) 6.4, Absolute Lymphs (auto) 2.36, Nucleated RBC % 0.2, Diff Path Review March, Sodium 137, Potassium 3.1 L, Chloride 97 L, Carbon Dioxide 29.0, Anion Gap 11, BUN 8, Creatinine 0.80, Estim Creat Clear Calc 63.49, Est GFR (MDRD) Af Amer 90, Est GFR (MDRD) Non-Af 75, BUN/Creatinine Ratio 10.1, Glucose 79, Calcium 11.0 H, Total Bilirubin 0.60, AST 29, ALT 17, Alkaline Phosphatase 108, Total Protein 6.8, Albumin 2.9 L, Globulin 3.9, A lbumin/Globulin Ratio 0.7 L, Lipase 33 08/31/24 04:54: WBC 9.0, RBC 3.90 L, Hgb 11.4 L, Hct 35.9 L, MCV 92.1, MCH 29.2, MCHC 31.8 L, RDW Std Deviation 55.3 H, RDW Coeff of Orestes 16.4 H, Plt Count 386, MPV 11.5, Immature Gran % (Auto) 2.100 H, Neut % (Auto) 51.6, Lymph % (Auto) 19.2, [place] % (Auto) 20.5 H, Eos % (Auto) 5.1 H, Baso % (Auto) 1.5 H, Absolute Neuts (auto) 4.6, Absolute Lymphs (auto) 1.72, Nucleated RBC % 0, Differential Comment SCANNED, Sodium 139, Potassium 3.2 L, Chloride 102, Carbon Dioxide 29.0, Anion Gap 8, BUN 8, Creatinine 0.67, Estim Creat Clear Calc 62.58, Est GFR (MDRD) Af Amer 111, Est GFR (MDRD) Non-Af 91, BUN/Creatinine Ratio 12.0, Glucose 82, Calcium 9.2, Magnesium 1.5 L, Total Bilirubin 0.50, AST 25, ALT 14, Alkaline Phosphatase 81, Total Protein 4.9 L, Albumin 2.1 L, Globulin 2.8, A lbumin/Globulin Ratio 0.8 L Radiography Diagnostic Testing: Radiology Impression KUB X-Ray 08/30/24 18:30 IMPRESSION: Cholelithiasis. Electronically Signed: Rob Palm DO at 20:17 EDT Reading Location ID and State: [facility] / [place] Tel [phone], Service support , Rhythm Strip Rhythm Strip: Sinus Rhythm Rate: 95 Ectopy: None Physical Exam Const alert HEENT head/scalp atraumatic Resp normal respiratory effort, no retractions, no use of accessory muscles and clear to auscultation bilaterally Cardio regular rate, regular rhythm, S1 normal heart sound and S2 normal heart sound GI normal to inspection, nondistended, normoactive bowel sounds, soft to palpation, non-tender and non-distended Neuro Sensorium / Orientation: awake Assessment & Plan Assessment/Plan (1) Intractable nausea and vomiting: PLAN: Plan Intractable nausea and vomiting * Ongoing past couple weeks * Abd xray on the showed no acute process. * was admitted 08/15- and left AMA. Was found to have minimal sigmoid diverticulitis. HIDA scan was negative. GB US showed cholelithiasis, but no cholecystitis. * IVF, antiemetics. Check UDS. Patient noted denies use of cannabinoids. * Will consult GI as patient had sensation of food getting stuck. Will add Mucinex as patient states that she gags with thick mucus and then starts throwing up. Diarrhea * chronic. * known h/o lymphocytic colitis and chronic pancreatitis. * check stool studies. 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 follow up with speciality as outpt. * chronic XRT fibrosis of right lung: stable. follow up with pulmonary as outpt. * CAD: continue ASA, statin metoprolol * h/o afib s/p RFA: on metoprolol on no anticoagulation. VTE prophylaxis: LMWH. Charges/Coding Visit Charges Inpatient E&M: 20162 Subs Hosp L2
[2024-08-31] MEDS: Vibegron 75 MG TABLET PO (09:04)
[2024-08-31] MEDS: Enoxaparin 40 MG/0.4 ML Syringe SC (09:04)
[2024-08-31] MEDS: Metoprolol Tartrate 25 MG Tablet 12.5 MG PO ×2 (09:05→21:51)
[2024-08-31] MEDS: Potassium Chloride Oral Tablet 10 MEQ PO ×2 (09:05→21:51)
[2024-08-31] MEDS: Aspirin E.C. 81 MG Tablet PO (09:05)
[2024-08-31] MEDS: Creon 24,000 unit DR Capsule 3 CAP PO ×2 (09:05→16:15)
[2024-08-31] MEDS: Potassium Chloride Oral Tablet 20 MEQ 40 MEQ PO (09:06)
[2024-08-31] MEDS: Menthol/Lanolin/Calamine/Znox 113 GM Tube 1 APPLIC TOPICAL ×2 (09:06→21:50)
[2024-08-31] MEDS: FLU VACCINE **HIGH DOSE** TV 24-25 180 MCG/0.5 ML SYRINGE IM (09:07)
[2024-08-31] MEDS: Magnesium Sulfate 2 GM in Dextrose 5%-Water (100mL Bag) 100 ML IV (09:52)
--- NOTE | 2024-08-31 13:59 | CHAPLAIN ---
Type of Pastoral Visit _x__ Initial Visit ___ Follow-up Visit ___ On-call Visit ___ General Patient Visit ___ Spiritual Assessment ___ Family Conference ___ Bereavement ___ Rapid Response ___ Code Blue ___ Other (describe below) Pastoral Care Referral From _x__ Patient _x__ Family ___ Nurse ___ Physician ___ Collision Repairer ___ Policy Change Clerks Supervisor ___ Other (describe below) Sacrament/Intervention _x__ Active listening ___ Anointing ___ Jainism ___ Bereavement ___ Communion _x__ Ellie exploration ___ ___ Life review _x__ Prayer ___ Reconciliation ___ Sacrament of Sick _x__ Supportive presence ___ Wedding ___ Other (describe below) Pastoral Comments patient and spouse are in the room as patient is resting in bed; spouse begins first to talk and about how frustrating it is that pt has not been improving and that this continues without answers as to why and that we have to wait for many months about a surgery decision; addressing the patient directly with questions that pt reveals that she is now at the point where I am just done with this and I am giving up; asked more about her thoughts and feelings the pt speaks of being so weary of not being well and that while she will be relieved to pass away she will be unhappy about leaving her family, friends, and especially her whom i love very much; pt also states openly that she is concerned about what will happen with her in the afterlife; this manager of maintenance asked more open ended questions to process her thinking and feelings; pt given affirmation on how she is feeling and is given perspective on hope, ellie, and belief; helped the patient process her questions with spiritual care; pt is from a Zoroastrianism background but has not practiced her ellie in decades; pt welcomes prayer and expresses gratitude for helping her today and meeting her in her spiritual and emotional concerns; pt asked for more visits if possible (it is a Tuesday and this manager of maintenance will return on Tuesday); has been quiet during the discussion and conversation; this manager of maintenance asks spouse on what he needs and how to help him but he states that he is fine
[2024-08-31 14:56] LABS: Mucous, Urine 0 SEEN /hpf (<or=2+); Red Blood Cells-Urine 0 SEEN /hpf (0-5); Squamous Epithelial Cells - UA 0 SEEN /hpf (5-10)
[2024-08-31 14:59] LABS: Color, Urine Yellow (Yellow); Glucose, Dipstick Normal (Normal); Ketone-Dipstick 50 mg/dl (Negative); Leukocyte Esterase-Dipstick 25 /ul (Negative); Nitrite-Dipstick Negative (Negative); Occult Blood-Urine Negative /ul (Negative); Protein-Dipstick 15 mg/dl (Negative); Urine Clarity Sl. Cloudy (Clear); Urine Urobilinogen 1 mg/dl (Normal)
[2024-08-31 15:02] LABS: Urine Bilirubin Dipstick 1 mg/dL (Negative)
[2024-08-31 15:05] LABS: Bacteria 3+ /hpf (None Seen); White Blood Cells 0-5 SEEN /hpf (0-5)
[2024-08-31 15:13] LABS: Amphetamine Urine VISTA NEGATIVE (<1000 ng/mL); Barbiturate Urine VISTA NEGATIVE (< 200 ng/mL); Benzodiazepine Urine VISTA NEGATIVE (< 200 ng/mL); Cocaine Urine VISTA NEGATIVE (< 300 ng/mL); Ecstacy Urine VISTA POSITIVE (< 500 ng/mL); Methadone Urine VISTA NEGATIVE (< 300 ng/mL); PCP Urine VISTA NEGATIVE (< 25 ng/mL); THC Urine VISTA NEGATIVE (< 50 ng/mL); Vista UDS pH Range 4
[2024-08-31 15:49] LABS: Pathologist Review Reviewed
--- NOTE | 2024-08-31 15:51 | CASEMGMT ---
SHABBIR MARINELLI chart review: Patient was admitted 08/15/24-08/17/24 for diverticulitis. Pt was scheduled for EGD, made NPO. States someone came in during the middle of the night to take blood for upcoming procedure, pt states was unaware of having any procedures. Pt ended up leaving AMA. Pt returned to ER 08/30/24 due to Nausea, vomiting and diarrhea. SHABBIR MARINELLI informed by therapy that pt was very weak, recommended placement. SHABBIR MARINELLI discussed DC planning with pt and . states they have DME, wheelchair lifts and looking into a hospital bed for pt. Would prefer to take patient home, SHABBIR MARINELLI informed pt will continue to follow for needs at time of DC.
[2024-08-31] MEDS: Magnesium Chloride 64 MG Delay Rel.Tablet 128 MG PO ×2 (16:15→21:51)
[2024-08-31] MEDS: LORazepam 2 MG/ML Syringe 0.5 MG IV (16:15)
[2024-08-31] MEDS: 0.9% Saline Lock 10 ML Syringe IV ×2 (16:15→18:22)
--- NOTE | 2024-08-31 16:15 | CT_ITS ---
INDICATION: diarrhea EXAMINATION: CT Abdomen And Pelvis W/ Contrast Injection TECHNIQUE: Helically acquired images were obtained of the abdomen and pelvis after IV contrast. A radiation dose optimization technique was used for this scan. IV Contrast dosage and agent: IV 100mL Isovue-300 Oral contrast: None. COMPARISON: None. FINDINGS: Visualized lung bases: Unremarkable Liver: Unremarkable Gallbladder: Few small intraluminal stones seen. Spleen: Unremarkable Pancreas: Unremarkable Adrenal Glands: Unremarkable Kidneys: Unremarkable Vasculature: Severe aortoiliac atherosclerotic disease. GI Tract: Scattered diverticula throughout the colon without evidence of inflammation. LAP-BAND in place. Lymphadenopathy: None Peritoneum: No ascites. Bladder: Collapsed. Reproductive organs: Status post hysterectomy. Bones/Soft tissues: No suspicious osseous or soft tissue lesions . Chronic compression deformity of L3. CT/Abdomen/Pelvis W IV Cont ONLY IMPRESSION: No acute abnormalities in the abdomen or pelvis. Electronically Signed: Barrie Stapleton MD at 18:14 EDT ,
--- NOTE | 2024-08-31 16:18 | CON.PCM.GI_ITS ---
HPI Consult Data Date of Consult: 08/31/24 HPI Narrative Reason for Consultation: Diarrhea nausea vomiting HPI Narrative: ANDRADE SANTOS, is a 74 F who presents with history of Tami's granulomatosis, coronary disease status post stenting, history of breast cancer with radiation, A-fib with radiofrequency ablation 2018, hypertension, lymphocytic colitis who presented [facility] ED 08/30/2024 due to progressive weakness with intractable nausea and vomiting. Patient endorses diarrhea for the past 2 years for which she is following with GI and has been having nausea and vomiting over the past couple of weeks and difficulty tolerating p.o. Her and her have been concerned that her gallbladder may be a problem, did have recent HIDA scan that was negative at last admission earlier this month. Patient reports she has had a cough with thick phlegm for few weeks but baseline with her breathing. No fevers or chills. Does urinate frequently but no burning. No abdominal pain, overall just feels very weak. Of note patient was here for diverticulitis earlier this month and was supposed to have an EGD 08/17 and was made n.p.o. but left AMA in the morning before her scan so this was unable to be completed. I got to know her back in early 2021 for recurrent C. difficile colitis. She eventually got better after getting for Dificid. She has been getting rituximab for her Tami's granulomatosis. I had her on budesonide after she underwent colonoscopy and was discovered to have lymphocytic colitis. Currently as per her she has not been able to keep anything down and has lost a lot of weight due to her diarrhea. [facility] Medical History (Updated 08/30/24 @ 15:[address] Laura Sapp MD) Myocardial infarct TIA (transient ischemic attack) Wears hearing aid Loss of hearing Wears glasses Post-menopausal Cancer Uses wheelchair Walker as ambulation aid Bladder disease Easy bruising Back pain History of diverticulitis Non-smoker Hoarseness Shortness of breath on exertion History of edema History of echocardiogram History of stress test Cardiology follow-up encounter History of atrial fibrillation C. difficile colitis Anxiety Depression Arthritis On home oxygen therapy Colitis Diverticulitis Tami's granulomatosis History of ST elevation myocardial infarction (STEMI) (11/25/20) Atherosclerotic heart disease of platinum coronary artery without angina pectoris History of breast cancer Neuropathy Chronic rhinitis Vitamin deficiency Tear film insufficiency Osteopenia Mixed hyperlipidemia Essential (primary) hypertension Breast cancer Paroxysmal atrial fibrillation Home Medications ?Medication ?Instructions ?Recorded ?Last Taken ?Type carboxymethylcellulose sodium 0.5 1 drp ophthalmic (eye) 4-8XD PRN 08/31/18 01/18/22 History % eye drops (Refresh Tears) Dry Eyes aspirin 81 mg tablet,delayed 81 mg PO DAILY 01/19/22 08/16/24 History release (Adult Low Dose Aspirin) potassium chloride 10 mEq 10 meq PO BID SUPPLEMENT 01/19/22 08/16/24 History capsule,extended release handicap placcard #1 ea 12/15/22 Unknown Rx cholecalciferol (vitamin D3) 25 50 mcg PO DAILY 03/23/23 08/16/24 History mcg (1,000 unit) capsule (Vitamin D3) metoprolol tartrate 25 mg tablet 12.5 mg (1/2 x 25 mg) PO BID #90 02/02/24 08/16/24 Rx tabs [id number] 2 cap PO TID 04/15/24 08/16/24 History 40,000-126,000-168,000 unit capsule, delay rel (Zenpep) atorvastatin 10 mg tablet (Lipitor) 10 mg PO QHS cholesterol #90 tabs 05/28/24 08/16/24 Rx vibegron 75 mg tablet (Gemtesa) 75 mg PO QDAY 08/07/24 08/16/24 History cyclosporine 0.05 % eye drops 1 drp EACH EYE Q12H 08/15/24 Unknown History Allergy/AdvReac Type Severity Reaction Status Date / Time No Known Allergies Allergy Verified 08/30/24 12:06 Family History Father Heart disease Colon cancer Mother Breast cancer CVA (cerebral vascular accident) Grandmother CVA (cerebral vascular accident) Brother Diabetes Surgical History (Updated 08/30/24 @ 15:27 by Krys Miles) History of appendectomy Personal history of gastric banding Hx of abdominoplasty Hx of breast reduction, elective History of radiofrequency ablation procedure for cardiac arrhythmia (05/15/19) History of coronary artery stent placement (11/25/20) History of cataract surgery H/O mastectomy History of tonsillectomy History of appendectomy History of adjustable gastric banding History of left heart catheterization (05/15/08) Social History household members: spouse Smoking Status: Never smoker alcohol intake: never caffeine: No what type of physical activity do you participate in: swimming and aerobics frequency: 3-4 times per week ROS ROS Narrative General: Denies fever/chills HENT: Denies headache, denies stuffy nose, denies sore throat EYES: Denies changes in vision Resp: Uses O2 as needed at home, has cough with thick sputum over the past few weeks but does not note acute change in breathing Cardiac: Denies chest pain GI: Denies abdominal pain, chronic diarrhea, has some frequent nausea and vomiting over the past couple weeks with difficulty tolerating p.o. : Frequent urination Extremity: Denies swelling MSK: Generalized weakness Neuro: Denies any numbness/tingling Heme: Denies any bleeding or bruising Skin: Denies rashes Psychiatric: No complaints voiced Physical Exam Const alert HEENT head/scalp atraumatic Resp normal respiratory effort, no retractions, no use of accessory muscles and clear to auscultation bilaterally Cardio regular rate, regular rhythm, S1 normal heart sound and S2 normal heart sound GI normal to inspection, nondistended, normoactive bowel sounds, soft to palpation, non-tender and non-distended Neuro Sensorium / Orientation: awake Lab / Micro Data 08/31/24 04:54 08/31/24 04:54 Labs: Laboratory Results - last 24 hr 08/30/24 12:30: Diff Path Review Reviewed 08/31/24 04:54: WBC 9.0, RBC 3.90 L, Hgb 11.4 L, Hct 35.9 L, MCV 92.1, MCH 29.2, MCHC 31.8 L, RDW Std Deviation 55.3 H, RDW Coeff of Orestes 16.4 H, Plt Count 386, MPV 11.5, Immature Gran % (Auto) 2.100 H, Neut % (Auto) 51.6, Lymph % (Auto) 19.2, [place] % (Auto) 20.5 H, Eos % (Auto) 5.1 H, Baso % (Auto) 1.5 H, Absolute Neuts (auto) 4.6, Absolute Lymphs (auto) 1.72, Nucleated RBC % 0, Differential Comment SCANNED, Sodium 139, Potassium 3.2 L, Chloride 102, Carbon Dioxide 29.0, Anion Gap 8, BUN 8, Creatinine 0.67, Estim Creat Clear Calc 62.58, Est GFR (MDRD) Af Amer 111, Est GFR (MDRD) Non-Af 91, BUN/Creatinine Ratio 12.0, Glucose 82, Calcium 9.2, Magnesium 1.5 L, Total Bilirubin 0.50, AST 25, ALT 14, Alkaline Phosphatase 81, Total Protein 4.9 L, Albumin 2.1 L, Globulin 2.8, A lbumin/Globulin Ratio 0.8 L 08/31/24 14:05: Urine Color Yellow, Urine Clarity Sl. Cloudy, Urine pH 5.0, Ur Specific [place] 1.030, Urine Protein 15 H, Urine Glucose (UA) Normal, Urine Ketones 50 H, Urine Occult Blood Negative, Urine Nitrite Negative, Urine Bilirubin 1 H, Urine Urobilinogen 1 H, Ur Leukocyte Esterase 25 H, Urine RBC 0 SEEN, Urine WBC 0-5 SEEN, Ur Squamous Epith Cells 0 SEEN, Urine Bacteria 3+, Urine Mucus 0 SEEN, Urine Opiates Screen NEGATIVE, Urine Methadone Screen NEGATIVE, Ur Barbiturates Screen NEGATIVE, Ur Phencyclidine Scrn NEGATIVE, Ur Amphetamines Screen NEGATIVE, MDMA (Ecstasy) Screen POSITIVE H, U Benzodiazepines Scrn NEGATIVE, Urine Cocaine Screen NEGATIVE, U Cannabinoids Screen NEGATIVE, Ur Drug Screen Comment Micro: Microbiology 08/31/24 14:25 Stool Clostridioides difficile (PCR) - Final Rhythm Strip Rhythm Strip: Sinus Rhythm Rate: 95 Ectopy: None Imaging Radiology Impression KUB X-Ray 08/30/24 18:30 IMPRESSION: Cholelithiasis. Electronically Signed: Rob Palm DO at 20:17 EDT Reading Location ID and State: [facility] / [place] Tel [phone], Service support , Assessment & Plan Assessment/Plan (1) Diverticulitis: PLAN: Plan This 74-year-old female came to ED with right upper abdominal pain, nausea and diarrhea 1. I will order repeat CT abdomen/pelvis with IV contrast as her previous CT scan abdomen pelvis showed sigmoid diverticulitis with surrounding inflammation of mesocolon but no abscess or perforation. Patient was given Cipro and Flagyl. Her stool studies at this time did not show any signs of infection. I will order fecal elastase and fecal calprotectin to see if there is any inflammation from colon or small bowel just not being seen on her microbiology of her stool studies have been ordered. I will start her on IV prednisone and oral budesonide. 2. Acute RUQ abdominal pain-I do not think she has any signs or symptoms of biliary colic at this time. I think she would benefit from a gastric emptying study to see if she has any dumping syndrome or gastroparesis. 3. Hypokalemia: Potassium 2.7. IV potassium replacement ordered. Serum magnesium and phosphorus level ordered. 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 At that time she was admitted with right upper extremity cellulitis and was thought probably drug reaction from the Rituxan infusion and is currently to get a rituximab infusion in the near future. 5. CAD status post stent, history of chronic A-fib status post RFA and chronic HFpEF: Currently patient does not have acute chest pain or cardiac related symptoms. Home medications continued. On metoprolol Lipitor and aspirin. Last echo in 2020 shows EF 65% with stage II diastolic dysfunction. 6. 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 She had CA breast with the right sided radiation therapy and was told by Dr. Rae at that she has 40% lung function left on right lung. She is also on 2 to 3 L of O2 at home as needed. Charges/Coding Visit Charges Inpatient E&M: 24979 Init Hosp L3
[2024-08-31] MEDS: Budesonide 3 MG CAPSULE.EC 9 MG PO (16:36)
[2024-08-31 16:50] LABS: Erythrocyte Sedimentation Rate 54 mm/hr (0-30)
[2024-08-31 17:09] LABS: Amylase 25 U/L (25-115); Lipase 47 U/L (13-75)
[2024-08-31 17:22] LABS: Lactic Acid 1.1 mmol/L (0.4-1.9)
[2024-08-31] MEDS: proCHLORPERazine 10 MG/2 ML Vial IV ×2 (18:22→23:51)
[2024-08-31] MEDS: Atorvastatin Calcium 10 MG Tablet PO (21:51)
[2024-08-31] MEDS: guaiFENesin 600 MG Tablet PO (21:52)
[2024-09-01] VITALS (8 sets, daily range): BP systolic 92–123; BP diastolic 54–71; PULSE 73–81; RESP 15–16; TEMP 36.3–36.7; O2SAT 91–97
[2024-09-01] MEDS: proCHLORPERazine 10 MG/2 ML Vial IV ×4 (05:54→23:47)
[2024-09-01 06:17] LABS: Anion Gap 5 (5-15); BUN 10 mg/dL (7-18); BUN/Creat Ratio 14.1 RATIO (10-20); Calcium,Total 9.4 mg/dL (8.5-10.1); Chloride 105 mmol/L (98-107); Creatinine, Serum 0.71 mg/dL (0.55-1.02); EST Glomerular Filtration Rate 85 mL/min (>60); Est Glom Filt Rate - Afr Amer 103 mL/min (>60); Estimated Creatinine Clearance 62.58 ml/min; Glucose 185 mg/dL (74-106); Potassium 4.6 mmol/L (3.5-5.1); Sodium Level 136 mmol/L (136-145)
--- NOTE | 2024-09-01 07:00 | PN.HOSP_ITS ---
Reason for Visit Reason for Visit: Diagnoses Diverticulitis of intestine, part unspecified, without perforation or abscess without bleeding (08/30/24) Nausea with vomiting, unspecified (08/30/24) Subjective Subjective Able to have some soup yesterday. Objective Data Objective Data Vital Signs: Vital Signs Temp Pulse Resp BP Pulse Ox O2 Del Method O2 Flow Rate 36.3 C L 73 16 102/63 95 Nasal Cannula 2 09/01/24 03:39 09/01/24 03:39 09/01/24 03:39 09/01/24 03:39 09/01/24 03:39 09/01/24 03:39 09/01/24 03:39 Oxygen Flow Rate (L/min) 2 Oxygen Delivery Method Nasal Cannula Weight: 83.6 kg Body Mass Index (BMI) 31.6 Intake & Output: Intake and Output for Last 24 Hours 08/30/24 08/31/24 09/01/24 23:59 23:59 23:59 Intake Total 170 / 270 1334 / 1434 200 / 200 Output Total 500 / 500 Balance 170 / 270 834 / 934 200 / 200 Lab / Micro Data 08/31/24 04:54 09/01/24 05:27 Labs: Laboratory Results - last 24 hr 08/30/24 12:30: Diff Path Review Reviewed 08/31/24 14:05: Urine Color Yellow, Urine Clarity Sl. Cloudy, Urine pH 5.0, Ur Specific [place] 1.030, Urine Protein 15 H, Urine Glucose (UA) Normal, Urine Ketones 50 H, Urine Occult Blood Negative, Urine Nitrite Negative, Urine Bilirubin 1 H, Urine Urobilinogen 1 H, Ur Leukocyte Esterase 25 H, Urine RBC 0 SEEN, Urine WBC 0-5 SEEN, Ur Squamous Epith Cells 0 SEEN, Urine Bacteria 3+, Urine Mucus 0 SEEN, Urine Opiates Screen NEGATIVE, Urine Methadone Screen NEGATIVE, Ur Barbiturates Screen NEGATIVE, Ur Phencyclidine Scrn NEGATIVE, Ur Amphetamines Screen NEGATIVE, MDMA (Ecstasy) Screen POSITIVE H, U Benzodiazepines Scrn NEGATIVE, Urine Cocaine Screen NEGATIVE, U Cannabinoids Screen NEGATIVE, Ur Drug Screen Comment 08/31/24 16:35: ESR 54 H, Lactic Acid 1.1, C-React Prot Ext Range 39.50 H, Amylase 25, Lipase 47 09/01/24 05:27: Sodium 136, Potassium 4.6, Chloride 105, Carbon Dioxide 26.0, Anion Gap 5, BUN 10, Creatinine 0.71, Estim Creat Clear Calc 62.58, Est GFR (MDRD) Af Amer 103, Est GFR (MDRD) Non-Af 85, BUN/Creatinine Ratio 14.1, Glucose 185 H, Calcium 9.4 Micro: Microbiology 08/31/24 14:25 Stool Clostridioides difficile (PCR) - Final Radiography Diagnostic Testing: Radiology Impression Abdomen/Pelvis CT 08/31/24 16:15 IMPRESSION: No acute abnormalities in the abdomen or pelvis. Electronically Signed: Barrie Stapleton MD at 18:14 EDT , Rhythm Strip Rhythm Strip: Sinus Rhythm Rate: 95 Ectopy: None Physical Exam Const alert and no apparent distress HEENT head/scalp atraumatic and moist oral mucous membranes Resp normal respiratory effort, no retractions, no use of accessory muscles and clear to auscultation bilaterally Cardio regular rate, regular rhythm, S1 normal heart sound and S2 normal heart sound GI normal to inspection, nondistended, normoactive bowel sounds, soft to palpation, non-tender and non-distended Extremity normal to inspection and full ROM Neuro Sensorium / Orientation: awake and alert Assessment & Plan Assessment/Plan (1) Intractable nausea and vomiting: PLAN: Plan Intractable nausea and vomiting * Ongoing past couple weeks * was admitted 08/15- and left AMA. Was found to have minimal sigmoid diverticulitis. HIDA scan was negative. GB US showed cholelithiasis, but no cholecystitis. * IVF, antiemetics. * Data: Abd xray on the showed no acute process. UDS positive for MDMA. Repeat CT negative. * GI recommending fecal elastase and fecal calprotectin. As those are send outs, will defer to outpt. Also, consider GES. * Added Mucinex as patient states that she gags with thick mucus and then starts throwing up. Diarrhea * chronic. * known h/o lymphocytic colitis and chronic pancreatitis. * C diff, enteric panel negative. O+P pending * started on budesonide. Elevated CRP: * has been elevated chronically. Unclear significance. No fever, no leukocytosis at this time. 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 follow up with specialist as outpt. * chronic XRT fibrosis of right lung: stable. follow up with pulmonary as outpt. * CAD: continue ASA, statin metoprolol * h/o afib s/p RFA: on metoprolol on no anticoagulation. * chronic pancreatitis: continue w creon. VTE prophylaxis: LMWH. Charges/Coding Visit Charges Inpatient E&M: 26932 Subs Hosp L2
[2024-09-01] MEDS: Creon 24,000 unit DR Capsule 3 CAP PO ×3 (09:08→15:46)
[2024-09-01] MEDS: Metoprolol Tartrate 25 MG Tablet 12.5 MG PO ×2 (09:08→19:57)
[2024-09-01] MEDS: Magnesium Chloride 64 MG Delay Rel.Tablet 128 MG PO ×2 (09:09→19:56)
[2024-09-01] MEDS: Vibegron 75 MG TABLET PO (09:10)
[2024-09-01] MEDS: Potassium Chloride Oral Tablet 10 MEQ PO ×2 (09:10→19:57)
[2024-09-01] MEDS: Aspirin E.C. 81 MG Tablet PO (09:10)
[2024-09-01] MEDS: Budesonide 3 MG CAPSULE.EC 9 MG PO (09:10)
[2024-09-01] MEDS: guaiFENesin 600 MG Tablet PO ×2 (09:10→19:57)
[2024-09-01] MEDS: Menthol/Lanolin/Calamine/Znox 113 GM Tube 1 APPLIC TOPICAL ×2 (09:10→19:58)
[2024-09-01] MEDS: Enoxaparin 40 MG/0.4 ML Syringe SC (09:11)
--- NOTE | 2024-09-01 09:16 | CASEMGMT ---
Addendum entered by Nancy Davison 09/01/24 13:55: Social Work Referrals made to [facility], and to [facility] via email. SW to follow up on Tuesday. LEE Olivares Addendum entered by Nancy Davison 09/01/24 09:54: Social Work Pt's here now, asked RN to speak w/SW. SW spoke w/pt and . SW reviewed all of the information outlined below w/pt's as well. Pt's reviewed list, they would like referrals to [facility] and [facility], they are not sure which is their preference at this time. SW explained will make referrals to both and SW Tuesday will follow up. Pt's then spoke w/pt about all that has been going on w/pt medically; support offered. SW will continue to follow, will make referrals later today. LEE Olivares Original Note: Social Work SW met w/pt in room in regard to discharge plan. SW spoke w/pt about considering going somewhere for rehab when medically ready for discharge. Pt would prefer to go home, lives home w/. He does help her at home already. SW gently explained that based on pt's therapy notes, she may need more help than can provide. SW provided to pt a list from [facility] of prison facilities in network w/pt's insurance, in pt's preferred geographic area, and complete w/quality and resource use data. SW asked pt to review the list. Pt will have therapy today, and we can see how it goes today with therapy, SHIMON did ask pt to choose 3 facilities she may want to consider in the event she does need rehab, and SW Tuesday can follow up to make referrals. Pt states understanding. SHIMON also educated the pt on the SNF Medicare benefit. SW will continue to follow, will follow up w/pt Tuesday for SNF choices if the need is still indicated. LEE Olivares
[2024-09-01] MEDS: 0.9% Saline Lock 10 ML Syringe IV ×5 (12:39→23:47)
--- NOTE | 2024-09-01 12:56 | NURSING ---
Holding ativan due to pt becoming very drowsy and difficult to arouse per pt report. Dr notified of previous administration and response.
[2024-09-01] MEDS: Atorvastatin Calcium 10 MG Tablet PO (19:57)
[2024-09-01] MEDS: MELATONIN 3 MG TABLET PO (23:54)
[2024-09-02] MEDS: proCHLORPERazine 10 MG/2 ML Vial IV ×3 (05:30→17:11)
[2024-09-02] MEDS: 0.9% Saline Lock 10 ML Syringe IV ×5 (05:30→21:52)
[2024-09-02 06:00] VITALS: BP 129/78; PULSE 81; RESP 14; TEMP 36.7; O2SAT 94
--- NOTE | 2024-09-02 07:51 | PN.HOSP_ITS ---
Reason for Visit Reason for Visit: Diagnoses Diverticulitis of intestine, part unspecified, without perforation or abscess without bleeding (08/30/24) Nausea with vomiting, unspecified (08/30/24) Subjective Subjective Tolerating liquids. No further vomiting. Still with diarrhea, but does not know if worse or better. Objective Data Objective Data Vital Signs: Vital Signs Temp Pulse Resp BP Pulse Ox O2 Del Method O2 Flow Rate 36.7 C 81 14 129/78 H 94 Room Air 2 09/02/24 06:00 09/02/24 06:00 09/02/24 06:00 09/02/24 06:00 09/02/24 06:00 09/02/24 06:00 09/01/24 20:00 Oxygen Flow Rate (L/min) 2 Oxygen Delivery Method Room Air Weight: 83.6 kg Body Mass Index (BMI) 31.6 Intake & Output: Intake and Output for Last 24 Hours 08/31/24 09/01/24 09/02/24 23:59 23:59 23:59 Intake Total 1334 / 1434 800 / 800 350 / 350 Output Total 500 / 500 Balance 834 / 934 800 / 800 350 / 350 Lab / Micro Data 08/31/24 04:54 09/01/24 05:27 Micro: Microbiology 08/31/24 14:25 Stool Enteric Bacteriology - Final 08/31/24 14:25 Stool Clostridioides difficile (PCR) - Final Rhythm Strip Rhythm Strip: Sinus Rhythm Rate: 95 Ectopy: None Physical Exam Const alert and no apparent distress HEENT head/scalp atraumatic and moist oral mucous membranes Resp normal respiratory effort, no retractions, no use of accessory muscles and clear to auscultation bilaterally Cardio regular rate, regular rhythm, S1 normal heart sound and S2 normal heart sound GI normal to inspection, nondistended, normoactive bowel sounds, soft to palpation, non-tender and non-distended Extremity normal to inspection Neuro Sensorium / Orientation: awake and alert Psych Psych Narrative: flat affect. Assessment & Plan Assessment/Plan (1) Intractable nausea and vomiting: PLAN: Plan Intractable nausea and vomiting * Ongoing past couple weeks, though seem improved. Today. Tolerating liquids, advance diet to transitional. * was admitted 08/15- and left AMA. Was found to have minimal sigmoid diverticulitis. HIDA scan was negative. GB US showed cholelithiasis, but no cholecystitis. * Data: Abd xray on the showed no acute process. UDS positive for MDMA. Repeat CT negative. * GI recommending fecal elastase and fecal calprotectin. As those are send outs, will defer to outpt. Also, consider [facility]. * Added Mucinex as patient states that she gags with thick mucus and then starts throwing up. Diarrhea * chronic. * known h/o lymphocytic colitis and chronic pancreatitis. * C diff, enteric panel negative. O+P pending * started on budesonide. Elevated CRP: * has been elevated chronically. Unclear significance. No fever, no leukocytosis at this time. Debility * assistance required with therapy. Recommending placement at discharge. 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 follow up with specialist as outpt. * chronic XRT fibrosis of right lung: stable. follow up with pulmonary as outpt. * CAD: continue ASA, statin metoprolol * h/o afib s/p RFA: on metoprolol on no anticoagulation. * chronic pancreatitis: continue w creon. VTE prophylaxis: LMWH. Charges/Coding Visit Charges Inpatient E&M: 10667 Subs Hosp L2
[2024-09-02 08:02] VITALS: BP 115/66; PULSE 81; RESP 18; TEMP 36.3; O2SAT 93
[2024-09-02] MEDS: Creon 24,000 unit DR Capsule 3 CAP PO ×3 (08:13→17:10)
[2024-09-02] MEDS: guaiFENesin 600 MG Tablet PO ×2 (08:21→21:48)
[2024-09-02] MEDS: Magnesium Chloride 64 MG Delay Rel.Tablet 128 MG PO ×2 (08:21→21:47)
[2024-09-02 08:22] VITALS: PULSE 81
[2024-09-02] MEDS: Aspirin E.C. 81 MG Tablet PO (08:22)
[2024-09-02] MEDS: Vibegron 75 MG TABLET PO (08:22)
[2024-09-02] MEDS: Potassium Chloride Oral Tablet 10 MEQ PO ×2 (08:22→21:47)
[2024-09-02] MEDS: Metoprolol Tartrate 25 MG Tablet 12.5 MG PO ×2 (08:22→21:47)
[2024-09-02] MEDS: Budesonide 3 MG CAPSULE.EC 9 MG PO (08:26)
[2024-09-02] MEDS: Menthol/Lanolin/Calamine/Znox 113 GM Tube 1 APPLIC TOPICAL ×2 (08:34→21:46)
[2024-09-02] MEDS: Enoxaparin 40 MG/0.4 ML Syringe SC (08:34)
[2024-09-02 14:00] VITALS: BP 109/69; PULSE 86; RESP 18; TEMP 36.7; O2SAT 95
[2024-09-02] MEDS: LORazepam 2 MG/ML Syringe 0.5 MG IV (14:11)
[2024-09-02 21:40] VITALS: BP 127/80; PULSE 86; RESP 18; TEMP 36.5; O2SAT 95
[2024-09-02 21:47] VITALS: BP 127/80; PULSE 86
[2024-09-02] MEDS: Atorvastatin Calcium 10 MG Tablet PO (21:47)
[2024-09-03] VITALS (8 sets, daily range): BP systolic 116–143; BP diastolic 70–80; PULSE 78–91; RESP 16–18; TEMP 36.3–36.7; O2SAT 92–96
[2024-09-03] MEDS: proCHLORPERazine 10 MG/2 ML Vial IV ×3 (01:00→12:07)
[2024-09-03] MEDS: LORazepam 2 MG/ML Syringe 0.5 MG IV (05:27)
[2024-09-03] MEDS: Acetaminophen 325 MG Tablet 650 MG PO (05:27)
[2024-09-03] MEDS: Creon 24,000 unit DR Capsule 3 CAP PO ×2 (09:59→12:06)
[2024-09-03] MEDS: Metoprolol Tartrate 25 MG Tablet 12.5 MG PO ×2 (09:59→21:26)
[2024-09-03] MEDS: Aspirin E.C. 81 MG Tablet PO (09:59)
[2024-09-03] MEDS: Magnesium Chloride 64 MG Delay Rel.Tablet 128 MG PO (09:59)
[2024-09-03] MEDS: guaiFENesin 600 MG Tablet PO (10:00)
[2024-09-03] MEDS: Potassium Chloride Oral Tablet 10 MEQ PO ×2 (10:00→21:26)
[2024-09-03] MEDS: Vibegron 75 MG TABLET PO (10:00)
[2024-09-03] MEDS: Enoxaparin 40 MG/0.4 ML Syringe SC (10:00)
[2024-09-03] MEDS: Budesonide 3 MG CAPSULE.EC 9 MG PO (10:01)
[2024-09-03] MEDS: Menthol/Lanolin/Calamine/Znox 113 GM Tube 1 APPLIC TOPICAL (10:11)
[2024-09-03] MEDS: Nystatin Powder 15gm Bottle 1 APPLIC TOPICAL ×2 (10:12→21:27)
--- NOTE | 2024-09-03 10:35 | CASEMGMT ---
Addendum entered by Evonne Simms 09/03/24 12:18: [facility] declined pt. SW updated. Evonne Simms DC Planning Asst. Original Note: Discharge Planning Updates sent to [facility] via [facility] with note checking on status of referral. Evonne Simms DC Planning Asst.
--- NOTE | 2024-09-03 12:17 | CASEMGMT ---
Social Work- TCU and [facility] declined referrals. SW f/u with pt for additional choices. Pt was lying in bed. eyes shut, and seemed to be sleeping. Pt spouse reported that pt was resting, that she is often tired. PT spouse reports that pt does not want to go to SNF and does not want to participate in therapy. SHIMON guided pt spouse through goals of care conversation and provided education on bed days correlated to loss of strength. Pt spouse reports that he would like to take pt home with [facility] if pt is refusing SNF. Pt spouse reports that pt diarrhea would need to be controlled prior to going home. Pt spouse states that they have multiple rollator walkers, transport chair, electric wheelchair, lift chair, grab bars, & a lift system in the garage that pt spouse needs to finish setting up. Pt spouse states he would be interested in a hospital bed and would make a ramp for the front door. Pt feels that he could transfer her to a car. SHIMON encouraged pt spouse to have PT practice transfers to see if this is a feasible option. SHIMON updated bedside nurse and DCA. SHIMON advised RNCM. SHIMON remains available to follow. CESIA Dominguez
--- NOTE | 2024-09-03 13:39 | CASEMGMT ---
Addendum entered by Mitzi Oseguera 09/03/24 16:00: Pt nurse notified that pt had questions regarding pt Creon and what pt was getting at the hospital. Spoke with pt after SW spoke with him on phone and answered his questions and made aware of what pt is receiving, dose and frequency. He denies further questions. Addendum entered by Mitzi Oseguera 09/03/24 14:49: Spoke with therapy, pt safe with 2 assist. RN CM into pt room, pt sitting up in chair. Attempted to discuss HHC with pt, pt states this RN CM needs to speak with her . TC to pt , he states that HHC is the last resort. He states there is no other options in [facility] for SNF's. Brought up pt choice list and gave him the other 4 in [place] including [facility], [facility], [facility] and [facility]. He states he was not aware of this. He is agreeable for referral to be sent to all 4 and then call him with accepting facilities. Updated SW and d/c preschool teacher's assistant. Pt denies any further needs at this time. Original Note: Received notification from SHIMON that pt would like to go home with HHC. TC to therapy, they will see pt next and give update as to pt needing 1 or 2 people at home for her care. Will await to treatment completed and speak with pt.
[2024-09-03] MEDS: 0.9% Saline Lock 10 ML Syringe IV ×2 (14:42→21:26)
--- NOTE | 2024-09-03 15:44 | CASEMGMT ---
Addendum entered by Evonne Simms 09/03/24 16:03: Pt and her wish to proceed with [facility]. All snfs updated. Evonne Simms DC Planning Ast. Original Note: Discharge Planning Referral sent to [facility], [facility], and [facility]. [facility] and [facility] accepted. Awaiting response from [facility]. SW updated. Evonne Simms DC Planning Asst.
--- NOTE | 2024-09-03 16:01 | CASEMGMT ---
Social Work- SW called spouse to advise of accepting facilities ([facility], [facility], and [facility]). Pt spouse selected [facility] as [facility]. Pt spouse states that he is concerned about the pt being d/c without the diarrhea being under control and is under the impression that GI dr is continuing to treat. SW advised that SW does not handle medical end of care and will pass messages on to hospitalist and GI physician; SW sent backlines to each physician. SHIMON advised DCA on FOC. CESIA Dominguez
--- NOTE | 2024-09-03 16:38 | CASEMGMT ---
Social Work Facility has been obtained.? Physician updated.?PASSR form completed in [facility]. DCA advised. Disposition: [facility], skilled level of care under convalescent stay. CESIA Dominguez
--- NOTE | 2024-09-03 17:51 | PCM.PN.HOSP ---
Reason for Visit Reason for Visit: Diagnoses Diverticulitis of intestine, part unspecified, without perforation or abscess without bleeding (08/30/24) Nausea with vomiting, unspecified (08/30/24) Subjective Subjective Patient was seen and examined today, she only says a few words to this examiner, she appears to be lethargic. We received approval for her to go to the [facility] today but I talk with the and he is concerned because of her lethargy. I stopped the patient's Ativan today, I am hopeful it was the Ativan because in the lethargy. I talked briefly with gastroenterology and they stated that they recommended the patient stay on 40 of prednisone daily for 2 weeks, her present dose of Entocort and her pancreatic enzyme medication. Objective Data Objective Data Vital Signs: Vital Signs Temp Pulse Resp BP Pulse Ox O2 Del Method O2 Flow Rate 97.7 F L 85 18 116/75 92 Room Air 2 09/03/24 14:54 09/03/24 14:54 09/03/24 14:54 09/03/24 14:54 09/03/24 14:54 09/03/24 14:54 09/03/24 13:18 Oxygen Flow Rate (L/min) 2 Oxygen Delivery Method Room Air Weight: 83.6 kg Body Mass Index (BMI) 31.6 Intake & Output: Intake and Output for Last 24 Hours 09/01/24 09/02/24 09/03/24 23:59 23:59 23:59 Intake Total 800 / 800 1050 / 1050 250 / 250 Balance 800 / 800 1050 / 1050 250 / 250 Lab / Micro Data 08/31/24 04:54 09/01/24 05:27 Micro: Microbiology 08/31/24 14:25 Stool Enteric Bacteriology - Final 08/31/24 14:25 Stool Clostridioides difficile (PCR) - Final Rhythm Strip Rhythm Strip: Sinus Rhythm Rate: 95 Ectopy: None Physical Exam Const no apparent distress Constitutional Narrative: Patient appears lethargic, she will only say few words to this examiner General Appearance: cooperative, well kempt and well developed HEENT normocephalic, head/scalp atraumatic and moist oral mucous membranes Eyes PERRL, EOMs intact bilaterally and conjunctivae normal Neck supple, no JVD and thyroid normal General: trachea midline Resp normal respiratory effort, no retractions, no use of accessory muscles and clear to auscultation bilaterally Auscultation: Negative for rales, rhonchi or wheezes Cardio regular rate, regular rhythm, S1 normal heart sound, S2 normal heart sound, no murmurs, no rub and no gallops GI normal to inspection, nondistended, normoactive bowel sounds, soft to palpation, non-tender and non-distended Extremity no clubbing, cyanosis or edema Skin no rashes or lesions noted General Skin Exam: no breakdown Neuro CN's II-XII intact bilaterally, no focal motor deficits and no sensory deficits noted Neuro Narrative: Patient is lethargic Psych Psych Narrative: Patient is lethargic and sleepy Assessment & Plan Assessment/Plan (1) Intractable nausea and vomiting: PLAN: Plan 1. Intractable nausea and vomiting-etiology unclear, this has resolved presently, I have elected to stop her IV Compazine and continue Zofran as needed #2 chronic diarrhea-probably secondary to lymphocytic colitis, patient is on budesonide and IV Solu-Medrol at this time #3 debility-patient was excepted at a skilled care facility, she will be examined tomorrow for possible transfer there #4 coronary artery disease-continue aspirin, statin, and metoprolol #5 lethargy-etiology unclear, may be secondary to Ativan administration while in the hospital, Ativan was discontinued Total clinical time spent by myself addressing the patient's medical issues, reviewing all of her data, and collaborating with patient's care team: 35 minutes Charges/Coding Visit Charges Inpatient E&M: 62079 Subs Hosp L2
--- NOTE | 2024-09-03 19:35 | PN.GI_ITS ---
Subjective Subjective As per nursing the patient has only had 1 bowel movement today. She was having multiple bowel movements a day and it is down to 1-2 at most per day. She is very lethargic. She has been sleeping a lot. Objective Data Objective Data Vital Signs: Vital Signs Temp Pulse Resp BP Pulse Ox O2 Del Method O2 Flow Rate 97.7 F L 85 18 116/75 92 Room Air 2 09/03/24 14:54 09/03/24 14:54 09/03/24 14:54 09/03/24 14:54 09/03/24 14:54 09/03/24 14:54 09/03/24 13:18 Oxygen Flow Rate (L/min) 2 Oxygen Delivery Method Room Air Weight: 184 lb 4.903 oz Body Mass Index (BMI) 31.6 Intake & Output: Intake and Output for Last 24 Hours 09/01/24 09/02/24 09/03/24 23:59 23:59 23:59 Intake Total 800 / 800 1050 / 1050 250 / 250 Balance 800 / 800 1050 / 1050 250 / 250 Lab / Micro Data 08/31/24 04:54 09/01/24 05:27 Micro: Microbiology 08/31/24 14:25 Stool Enteric Bacteriology - Final 08/31/24 14:25 Stool Clostridioides difficile (PCR) - Final Rhythm Strip Rhythm Strip: Sinus Rhythm Rate: 95 Ectopy: None Physical Exam Const alert and no apparent distress HEENT head/scalp atraumatic and moist oral mucous membranes Resp normal respiratory effort, no retractions, no use of accessory muscles and clear to auscultation bilaterally Cardio regular rate, regular rhythm, S1 normal heart sound and S2 normal heart sound GI normal to inspection, nondistended, normoactive bowel sounds, soft to palpation, non-tender and non-distended Extremity normal to inspection Neuro Sensorium / Orientation: awake and alert Psych Psych Narrative: flat affect. Assessment & Plan Assessment/Plan (1) Diverticulitis: PLAN: Plan This 74-year-old female came to ED with right upper abdominal pain, nausea and diarrhea 1. I will order repeat CT abdomen/pelvis with IV contrast as her previous CT scan abdomen pelvis showed sigmoid diverticulitis with surrounding inflammation of mesocolon but no abscess or perforation. Patient was given Cipro and Flagyl. Her stool studies at this time did not show any signs of infection. I will order fecal elastase and fecal calprotectin to see if there is any inflammation from colon or small bowel just not being seen on her microbiology of her stool studies have been ordered. I will start her on IV prednisone and oral budesonide. 2. Acute RUQ abdominal pain-I do not think she has any signs or symptoms of biliary colic at this time. I think she would benefit from a gastric emptying study to see if she has any dumping syndrome or gastroparesis. 3. Hypokalemia: Potassium 2.7. IV potassium replacement ordered. Serum magnesium and phosphorus level ordered. 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 At that time she was admitted with right upper extremity cellulitis and was thought probably drug reaction from the Rituxan infusion and is currently to get a rituximab infusion in the near future. 5. CAD status post stent, history of chronic A-fib status post RFA and chronic HFpEF: Currently patient does not have acute chest pain or cardiac related symptoms. Home medications continued. On metoprolol Lipitor and aspirin. Last echo in 2020 shows EF 65% with stage II diastolic dysfunction. 6. 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 Mando Rae. She had CA breast with the right sided radiation therapy and was told by Dr. Rae at that she has 40% lung function left on right lung. She is also on 2 to 3 L of O2 at home as needed. 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 Recommend to continue oral prednisone 40 mg a day x 2 weeks and continue 9 mg of budesonide per day. She is having some overflow incontinence secondary to very poor musculature. If she has any accidents then she will need to go on cholestyramine at night to thicken up her stool. Charges/Coding Visit Charges Inpatient E&M: 14434 [facility] Hosp L3
[2024-09-03] MEDS: Atorvastatin Calcium 10 MG Tablet PO (21:27)
[2024-09-04] VITALS (8 sets, daily range): BP systolic 104–138; BP diastolic 68–91; PULSE 84–122; RESP 16–20; TEMP 36.3–37.1; O2SAT 93–98
[2024-09-04] MEDS: 0.9% Saline Lock 10 ML Syringe IV (06:42)
[2024-09-04] MEDS: Potassium Chloride Oral Tablet 10 MEQ PO (08:06)
[2024-09-04] MEDS: Creon 24,000 unit DR Capsule 3 CAP PO ×2 (08:06→11:28)
[2024-09-04] MEDS: Metoprolol Tartrate 25 MG Tablet 12.5 MG PO (08:06)
[2024-09-04] MEDS: Aspirin E.C. 81 MG Tablet PO (08:06)
[2024-09-04] MEDS: Vibegron 75 MG TABLET PO (08:07)
[2024-09-04] MEDS: Budesonide 3 MG CAPSULE.EC 9 MG PO (08:08)
[2024-09-04] MEDS: Enoxaparin 40 MG/0.4 ML Syringe SC (08:13)
[2024-09-04] MEDS: Menthol/Lanolin/Calamine/Znox 113 GM Tube 1 APPLIC TOPICAL (08:13)
[2024-09-04] MEDS: Nystatin Powder 15gm Bottle 1 APPLIC TOPICAL ×2 (08:13→22:52)
[2024-09-04] MEDS: predniSONE 20 MG Tablet 40 MG PO (11:28)
--- NOTE | 2024-09-04 15:46 | CHAPLAIN ---
Type of Pastoral Visit ___ Initial Visit _x__ Follow-up Visit ___ On-call Visit ___ General Patient Visit ___ Spiritual Assessment ___ Family Conference ___ Bereavement ___ Rapid Response ___ Code Blue ___ Other (describe below) Pastoral Care Referral From _x__ Patient ___ Family ___ Nurse ___ Physician ___ Histology Technologist ___ Product Applications Engineer ___ Other (describe below) Sacrament/Intervention ___ Active listening ___ Anointing ___ Samaritan ___ Bereavement ___ Communion ___ Ellie exploration ___ ___ Life review ___ Prayer ___ Reconciliation ___ Sacrament of Sick _x__ Supportive presence ___ Wedding ___ Other (describe below) Pastoral Comments this was a follow up visit and the patient was sleeping; spouse of patient is at bedside and awake; spouse says that patient is being transferred today to a SNF for rehab with hopes of improvement on strength and getting back more energy and health; spouse is asked how best that help or support can be given; spouse indicates that they just hope this is the right move and wish for a better outcome; no other needs identified
--- NOTE | 2024-09-04 16:16 | CASEMGMT ---
Discharge Planning [facility] updated that physician would like to discharge pt yet tonight. Evonne Simms DC Planning Asst.
--- NOTE | 2024-09-04 16:18 | CASEMGMT ---
Social Work- Physician reports that he is planning to d/c pt yet today. SW placed green sheet and transport form on chart. PASSR completed. MATT advised. CESIA Dominguez
--- NOTE | 2024-09-04 16:56 | PCM.TXEXTCAR ---
Diet Diet Order/Speech Therapy: 09/02/24 09:29 Diet: Decreased fiber regular diet Routine Orders/Code Status Code Status: DNRCC-A (No intubation) Therapies Weight Bearing: Full weight bearing Physical Therapy: Eval and Treat Occupational Therapy: Eval and Treat Problem/Diagnosis (1) Diverticulitis: Status: Acute Code(s): K57.92 - Diverticulitis of intestine, part unspecified, without perforation or abscess without bleeding Plan 1. Intractable nausea and vomiting-etiology unclear, this has resolved presently, I have elected to stop her IV Compazine and continue Zofran as needed #2 chronic diarrhea-probably secondary to lymphocytic colitis, patient is on budesonide and IV Solu-Medrol at this time #3 debility-patient was excepted at a skilled care facility, she will be examined tomorrow for possible transfer there #4 coronary artery disease-continue aspirin, statin, and metoprolol #5 lethargy-etiology unclear, may be secondary to Ativan administration while in the hospital, Ativan was discontinued Total clinical time spent by myself addressing the patient's medical issues, reviewing all of her data, and collaborating with patient's care team: 35 minutes Allergies/Procedures Done in Hospital Allergies No Known Allergies Allergy (Verified 08/30/24 12:06) Procedures: None Type of Care/Length of Stay Estimated LOS: Convalescent Care Less Than 30 days Type of Care Needed: Skilled Rehab Potential: Good Prognosis: Good Additional Orders/Day of Discharge H&P will serve as current which was dated: 08/30/24 Day of Discharge: 09/04/24 Dietary and Speech Recommendations Dietitian Recommendations/Changes: Continue 118mL ensure compact TID with medpass Discharge Plan Admission Admit Date/Time: 08/30/24 15:36 Primary Reason for Your Visit: Chronic diarrhea, debility, pancreatic insufficiency, lymphocytic colitis Attending Provider: Clive Arnold Primary Care Provider: Rito Stewart Consulting Providers: Laura Sapp; Chay Wadsworth Discharge Orders/Prescriptions Prescriptions: New acetaminophen 325 mg Tablet 650 mg PO Q6H PRN PRN (Reason: Pain 1-10 Or Fever >100.7) Qty: 0 0RF prednisone 20 mg Tablet 40 mg PO BREAKFAST Qty: 0 0RF Rx Instructions: Start on 09/05/2024 and administer for 14 days and then stop medication nystatin [Nyamyc] 100,000 unit/gram Powder 1 applic topical BID Qty: 0 0RF Protocol: *Topical Application Instructions APPLICATION INSTRUCTIONS: To affected areas budesonide 3 mg Capsule,Delayed,Extend.Release 9 mg PO DAILY Qty: 0 0RF Ensure Compact Liquid 118 ml PO TIDCM Qty: 0 0RF enoxaparin 40 mg/0.4 mL Syringe 40 mg subcut DAILY Qty: 0 0RF Creon 24,000-76,000 -120,000 unit Capsule,Delayed Release(Dr/Ec) 3 cap PO TIDCM Qty: 0 0RF menthol-zinc oxide [Calmoseptine] 0.44-20.6 % Ointment 1 applic topical BID PRN (Reason: DIAPER RASH) Qty: 0 0RF Protocol: *Topical Application Instructions APPLICATION INSTRUCTIONS: dima rectal area prochlorperazine maleate [Compazine] 10 mg tablet 10 mg PO Q6H PRN (Reason: nausea and vomiting) Qty: 1 0RF Continued Refresh Tears 0.5 % drops 1 drp OPHTHALMIC 4-8XD PRN (Reason: Dry Eyes) (DME) handicap placcard See Rx Instructions .Route .MEDSUPPLY Qty: 1 0RF Rx Instructions: Dx: Debility, Restrictive lung disease exp:5 years Gemtesa 75 mg tablet 75 mg PO QDAY potassium chloride 10 mEq capsule, extended release 10 meq PO BID aspirin [Adult Low Dose Aspirin] 81 mg tablet,delayed release (DR/EC) 81 mg PO DAILY cholecalciferol (vitamin D3) [Vitamin D3] 25 mcg (1,000 unit) Capsule 50 mcg PO DAILY metoprolol tartrate 25 mg tablet 12.5 mg PO BID Qty: 90 3RF atorvastatin [Lipitor] 10 mg tablet 10 mg PO QHS Qty: 90 3RF Discontinued Zenpep 40,000-126,000- 168,000 unit capsule,delayed release(DR/EC) 2 cap PO TID Rx Instructions: administer with meals and/or snacks two capsules with meals; one capsule with snacks cyclosporine 0.05 % drops 1 drp EACH EYE Q12H Referrals / Follow Up: Rito Stewart MD [Primary Care Provider] - Friend,DO Carlin [Med Staff - Active Staff] - See Referral Note (in two weeks) Disposition Disposition (needs filled in before D/C Order can be placed): Senior Care Facility
--- NOTE | 2024-09-04 17:30 | PCM.DC.SUM ---
Providers Date of Admission: 08/30/24 Date of Discharge: 09/04/24 Primary Care Physician: Dr. Rito Stewart MD Consultations 08/31/24 10:37 Consult: Gastroenterology Routine Consulting Provider: [facility] Reason for Consult: intractable N/V EMERGENT Consult: No MD Notified: Yes Date Notified: 08/31/24 Time Notified: 10:37 Method of Notification: Text Reason For Visit: INTRACTABLE N/V/DIARRHEA Diagnosis Discharge Diagnosis (1) Diverticulitis: Status: Acute Code(s): K57.92 - Diverticulitis of intestine, part unspecified, without perforation or abscess without bleeding Plan 1. Intractable nausea and vomiting-etiology unclear, this has resolved presently, I have elected to stop her IV Compazine and continue Zofran as needed #2 chronic diarrhea-probably secondary to lymphocytic colitis, patient is on budesonide and IV Solu-Medrol at this time #3 debility-patient was excepted at a skilled care facility, she will be examined tomorrow for possible transfer there #4 coronary artery disease-continue aspirin, statin, and metoprolol #5 lethargy-etiology unclear, may be secondary to Ativan administration while in the hospital, Ativan was discontinued Total clinical time spent by myself addressing the patient's medical issues, reviewing all of her data, and collaborating with patient's care team: 35 minutes Medications at Discharge Home Medications carboxymethylcellulose sodium 0.5 % eye drops (Refresh Tears) 1 drp ophthalmic (eye) 4-8XD PRN Dry Eyes 08/31/18 aspirin 81 mg tablet,delayed release (Adult Low Dose Aspirin) 81 mg PO DAILY 01/19/22 potassium chloride 10 mEq capsule,extended release 10 meq PO BID SUPPLEMENT 01/19/22 handicap placcard #1 ea 12/15/22 cholecalciferol (vitamin D3) 25 mcg (1,000 unit) capsule (Vitamin D3) 50 mcg PO DAILY 03/23/23 metoprolol tartrate 25 mg tablet 12.5 mg (1/2 x 25 mg) PO BID #90 tabs 02/02/24 atorvastatin 10 mg tablet (Lipitor) 10 mg PO QHS cholesterol #90 tabs 05/28/24 vibegron 75 mg tablet (Gemtesa) 75 mg PO QDAY 08/07/24 acetaminophen 325 mg tablet 650 mg (2 x 325 mg) PO Q6H PRN PRN Pain 1-10 Or Fever >100.7 #0 tabs 09/04/24 budesonide 3 mg capsule,delayed,extended release 9 mg (3 x 3 mg) PO DAILY #0 ea 09/04/24 enoxaparin 40 mg/0.4 mL subcutaneous syringe 40 mg (0.4 mL) subcut DAILY #0 mL 09/04/24 food supplemt, lactose-reduced (Ensure Compact oral liquid) 118 ml PO TIDCM #0 mL 09/04/24 swczfq-gmqcdtlq-cwlapgf 24,000-76,000-120,000 unit capsule,delayed rel (Creon) 3 cap PO TIDCM #0 caps 09/04/24 menthol 0.44 %-zinc oxide 20.6 % topical ointment (Calmoseptine) 1 applic topical BID PRN DIAPER RASH #0 grams 09/04/24 nystatin 100,000 unit/gram topical powder (Nyamyc) 1 applic topical BID #0 grams 09/04/24 prednisone 20 mg tablet 40 mg (2 x 20 mg) PO BREAKFAST #0 tabs 09/04/24 prochlorperazine maleate 10 mg tablet (Compazine) 10 mg PO Q6H PRN nausea and vomiting #1 TAB 09/04/24 Weight / BMI Weight Weight: 83.6 kg Body Mass Index (BMI) 31.6 ABG / Lab / Microbiology Data 08/31/24 04:54 09/01/24 05:27 Microbiology: Microbiology 08/31/24 14:25 Stool Enteric Bacteriology - Final 08/31/24 14:25 Stool Clostridioides difficile (PCR) - Final Meaningful Use Info Ischemic Stroke Statin Dosing Therapy Reference: STATIN DOSE THERAPY REFERENCE: * Patients > 75 years receive moderate or high dose statin therapy. * Patients 75 years or YOUNGER should receive HIGH intensity statin dose unless contraindicated. You will be required to document reason for non-treatment if statin daily dose does not meet guidelines. HIGH DOSE STATIN THERAPY DAILY Atorvastatin > than or = to 40 mg Rosuvastatin > than or = to 20 mg Amlodipine + Atorvastatin > than or = to 2.5/40 mg Ezetimibe + Simvastatin 10/80 mg Simvastatin 80mg Discharge Plan Admission Admit Date/Time: 08/30/24 15:36 Primary Reason for Your Visit: Chronic diarrhea, debility, pancreatic insufficiency, lymphocytic colitis Attending Provider: Clive Arnold Primary Care Provider: Rito Stewart Consulting Providers: Laura Sapp; Chay Wadsworth Discharge Orders/Prescriptions Prescriptions: New acetaminophen 325 mg Tablet 650 mg PO Q6H PRN PRN (Reason: Pain 1-10 Or Fever >100.7) Qty: 0 0RF prednisone 20 mg Tablet 40 mg PO BREAKFAST Qty: 0 0RF Rx Instructions: Start on 09/05/2024 and administer for 14 days and then stop medication nystatin [Nyamyc] 100,000 unit/gram Powder 1 applic topical BID Qty: 0 0RF Protocol: *Topical Application Instructions APPLICATION INSTRUCTIONS: To affected areas budesonide 3 mg Capsule,Delayed,Extend.Release 9 mg PO DAILY Qty: 0 0RF Ensure Compact Liquid 118 ml PO TIDCM Qty: 0 0RF enoxaparin 40 mg/0.4 mL Syringe 40 mg subcut DAILY Qty: 0 0RF Creon 24,000-76,000 -120,000 unit Capsule,Delayed Release(Dr/Ec) 3 cap PO TIDCM Qty: 0 0RF menthol-zinc oxide [Calmoseptine] 0.44-20.6 % Ointment 1 applic topical BID PRN (Reason: DIAPER RASH) Qty: 0 0RF Protocol: *Topical Application Instructions APPLICATION INSTRUCTIONS: dima rectal area prochlorperazine maleate [Compazine] 10 mg tablet 10 mg PO Q6H PRN (Reason: nausea and vomiting) Qty: 1 0RF Continued Refresh Tears 0.5 % drops 1 drp OPHTHALMIC 4-8XD PRN (Reason: Dry Eyes) (DME) handicap placcard See Rx Instructions .Route .MEDSUPPLY Qty: 1 0RF Rx Instructions: Dx: Debility, Restrictive lung disease exp:5 years Gemtesa 75 mg tablet 75 mg PO QDAY potassium chloride 10 mEq capsule, extended release 10 meq PO BID aspirin [Adult Low Dose Aspirin] 81 mg tablet,delayed release (DR/EC) 81 mg PO DAILY cholecalciferol (vitamin D3) [Vitamin D3] 25 mcg (1,000 unit) Capsule 50 mcg PO DAILY metoprolol tartrate 25 mg tablet 12.5 mg PO BID Qty: 90 3RF atorvastatin [Lipitor] 10 mg tablet 10 mg PO QHS Qty: 90 3RF Discontinued Zenpep 40,000-126,000- 168,000 unit capsule,delayed release(DR/EC) 2 cap PO TID Rx Instructions: administer with meals and/or snacks two capsules with meals; one capsule with snacks cyclosporine 0.05 % drops 1 drp EACH EYE Q12H Referrals / Follow Up: Rito Stewart MD [Primary Care Provider] - Carlin Mock DO [Med Staff - Active Staff] - See Referral Note (in two weeks) Disposition Disposition (needs filled in before D/C Order can be placed): [facility]
[2024-09-04 21:35] LABS: Hematocrit 37.1 % (37-47); Hemoglobin 11.5 g/dL (12.0-15.0); Mean Corpuscular Hgb 28.3 pg (27.0-32.0); Mean Corpuscular Volume 91.2 fL (81-99); Mean Platelet Vol. 12.6 fl (6.2-12.0); POSITIVE COUNT YES; POSITIVE DIFFERENTIAL YES; POSITIVE MORPHOLOGY YES; Platelet Count 385 K/mm3 (150-450); RBC Distribution Width CV 16.9 % (11.6-14.6); RBC Distribution Width SD 55.6 fl (35.1-43.9); Red Blood Count 4.07 M/mm3 (4.2-5.4); White Blood Count 18.1 K/mm3 (4.4-11.0)
[2024-09-04 21:40] LABS: Differential Indicated MANUAL DIFF
[2024-09-04 21:45] LABS: International Normalized Ratio 1.1; Prothrombin Time (Protime)PT. 13.8 SECONDS (11.7-14.9)
[2024-09-04 21:54] LABS: AST(SGOT) 24 U/L (15-37); Alanine Aminotransfer ALT/SGPT 25 U/L (13-56); Albumin, Serum 1.6 g/dL (3.2-5.0); Alkaline Phosphatase 48 U/L (45-117); Anion Gap 7 (5-15); BUN 27 mg/dL (7-18); BUN/Creat Ratio 41.9 RATIO (10-20); Calcium,Total 5.7 mg/dL (8.5-10.1); Chloride 124 mmol/L (98-107); Creatinine, Serum 0.64 mg/dL (0.55-1.02); EST Glomerular Filtration Rate 95 mL/min (>60); Est Glom Filt Rate - Afr Amer 115 mL/min (>60); Estimated Creatinine Clearance 62.58 ml/min; Globulin 1.6 g/dL (2.2-4.2); Glucose 373 mg/dL (74-106); Protein, Total 3.2 g/dL (6.4-8.2); Sodium Level 144 mmol/L (136-145)
[2024-09-04 22:08] LABS: Lymphocyte 7 % (19-41); Metamyelocyte 3 % (0-1); Monocyte 19 % (0-10); Myelocyte 1 % (0-0); Neutrophil-Band 6 % (0-5); Neutrophil-Segmented 64 % (47-70); Total Cells Counted 100 (MANUAL DIFF)
[2024-09-04 22:10] LABS: Absolute Lymphocyte Count 1.27 X10^3/uL (0.83-4.51); Absolute Neutrophil Count 12.7 X10^3/uL (2.0-7.7)
--- NOTE | 2024-09-04 22:25 | PN.HOSP_ITS ---
Hospitalist Note As per nursing staff, patient has large amount of blood from the rectum. Vitals shows heart rate 122/min, BP 100/68, respiratory rate 20. Earlier patient was discharged which is canceled. Patient did not had any labs since 08/31/2024. Ringer lactate 1 L ordered. Labs reviewed shows leukocytosis 18.1 thousand. H&H is stable 11.5. Calcium c ritical 5.7. IV calcium ordered. IV pantoprazole every 12 hourly ordered. I will leave the decision on ID to inform Dr. Mock as he was seen on 08/31/2024 for abdominal pain nausea and diarrhea showing sigmoid diverticulitis. Patient also on steroid, prednisone 40 mg daily. Patient on Lovenox 40 mill subcu daily which discontinued because of mild rectal bleed. Continue baby aspirin. Labs ordered for tomorrow a.m. Laboratory Results 09/04/24 21:20: WBC 18.1 H, RBC 4.07 L, Hgb 11.5 L, Hct 37.1, MCV 91.2, MCH 28 .3, MCHC 31.0 L, RDW Std Deviation 55.6 H, RDW Coeff of Orestes 16.9 H, Plt Count 385, MPV 12.6 H, Neut % (Auto) Not Reportable, Absolute Neuts (auto) 12.7 H, Absolute Lymphs (auto) 1.27, Total Counted 100, Neutrophils % (Manual) 64, Band Neutrophils % 6 H, Lymphocytes % (Manual) 7 L, Monocytes % (Manual) 19 H, Metamyelocytes % 3 H, Myelocytes % 1 H, Diff Path Review March, PT 13.8, INR 1.1, Sodium 144, Potassium 4.0, Chloride 124 H, Carbon Dioxide 13.0 L, Anion Gap 7, BUN 27 H, Creatinine 0.64, Estim Creat Clear Calc 62.58, Est GFR (MDRD) Af Amer 115, Est GFR (MDRD) Non-Af 95, BUN/Creatinine Ratio 41.9 H, Glucose 373 H, Calcium 5.7 L*, Total Bilirubin 0.40, AST 24, ALT 25, Alkaline Phosphatase 48, Total Protein 3.2 L, Albumin 1.6 L, Globulin 1.6 L, Albumin/Globulin Ratio 1.0
[2024-09-04] MEDS: Lactated Ringers 1,000 ML 250 ML IV (22:51)
[2024-09-04] MEDS: Pantoprazole Sodium 40 MG in 0.9% Normal Saline (100mL MB+) 100 ML 330 MG IV (23:11)
[2024-09-04] MEDS: Calcium Gluconate IV 2 GM in 0.9% Normal Saline (100mL Bag) 100 ML IV (23:39)
--- NOTE | 2024-09-04 23:59 | NURSING ---
ASUNCION FROM THE [facility] NOTIFIED OF PT NOT BEING D/C TODAY
[2024-09-05] VITALS (11 sets, daily range): BP systolic 111–144; BP diastolic 74–90; PULSE 103–124; RESP 16–20; TEMP 36.1–36.8; O2SAT 96–98
[2024-09-05 04:18] LABS: Anion Gap 7 (5-15); BUN 40 mg/dL (7-18); BUN/Creat Ratio 33.3 RATIO (10-20); Calcium,Total 9.6 mg/dL (8.5-10.1); Chloride 109 mmol/L (98-107); EST Glomerular Filtration Rate 46 mL/min (>60); Est Glom Filt Rate - Afr Amer 56 mL/min (>60); Estimated Creatinine Clearance 41.72 ml/min; Glucose 401 mg/dL (74-106); Potassium 5.8 mmol/L (3.5-5.1); Sodium Level 136 mmol/L (136-145)
[2024-09-05 04:36] LABS: Hematocrit 33.3 % (37-47); Hemoglobin 10.5 g/dL (12.0-15.0); Mean Corp Hgb Conc 31.5 g/dL (32-36); Mean Corpuscular Hgb 28.7 pg (27.0-32.0); Mean Platelet Vol. 12.7 fl (6.2-12.0); POSITIVE COUNT YES; POSITIVE DIFFERENTIAL YES; POSITIVE MORPHOLOGY YES; Platelet Count 327 K/mm3 (150-450); RBC Distribution Width CV 16.6 % (11.6-14.6); RBC Distribution Width SD 54.8 fl (35.1-43.9); Red Blood Count 3.66 M/mm3 (4.2-5.4); White Blood Count 24.3 K/mm3 (4.4-11.0)
[2024-09-05 04:41] LABS: Differential Indicated MANUAL DIFF
[2024-09-05 05:52] LABS: Lymphocyte 10 % (19-41); Metamyelocyte 3 % (0-1); Monocyte 12 % (0-10); Myelocyte 2 % (0-0); Neutrophil-Band 1 % (0-5); Neutrophil-Segmented 72 % (47-70); Nucleated Red Bld Cells,Manual 2 % (0-5); Total Cells Counted 100 (MANUAL DIFF)
[2024-09-05 05:54] LABS: Anisocytosis 2+; Platelet Estimate ADEQUATE (ADEQ); Polychromasia 1+; Tear Drop Cell RARE
[2024-09-05 05:56] LABS: Absolute Lymphocyte Count 2.43 X10^3/uL (0.83-4.51); Absolute Neutrophil Count 17.7 X10^3/uL (2.0-7.7)
[2024-09-05] MEDS: Calcium Gluconate IV 1 GM in 0.9% Normal Saline (100mL Bag) 100 ML IV (06:44)
[2024-09-05] MEDS: Insulin Lispro 100 UNIT/ML INSULN.PEN 10 UNIT SC (06:49)
--- NOTE | 2024-09-05 08:10 | EKG12_ITS ---
Test Reason : hyperkalemia Blood Pressure : */* mmHG Vent. Rate : 121 BPM Atrial Rate : 121 BPM P-R Int : 112 ms QRS Dur : 82 ms QT Int : 410 ms P-R-T Axes : * 34 74 degrees QTcB Int : 582 ms Sinus tachycardia Nonspecific ST and T wave abnormality Abnormal ECG When compared with ECG of 29-Feb-2024 12:54, Sinus rhythm has replaced Atrial fibrillation Confirmed by MURPHY JACINTO, RYAN ([id number]), online editor LUCINDA SALCEDO ([id number]) on 09/06/2024 11:36:18 AM Referred By: Janelle Confirmed By: RYAN ARRINGTON MD
[2024-09-05 08:22] LABS: Hematocrit 33.6 % (37-47); Hemoglobin 10.7 g/dL (12.0-15.0); Mean Corp Hgb Conc 31.8 g/dL (32-36); Mean Corpuscular Hgb 29.2 pg (27.0-32.0); Mean Corpuscular Volume 91.6 fL (81-99); Mean Platelet Vol. 13.2 fl (6.2-12.0); POSITIVE COUNT YES; POSITIVE DIFFERENTIAL YES; POSITIVE MORPHOLOGY YES; Platelet Count 303 K/mm3 (150-450); RBC Distribution Width CV 16.9 % (11.6-14.6); RBC Distribution Width SD 55.8 fl (35.1-43.9); Red Blood Count 3.67 M/mm3 (4.2-5.4); White Blood Count 24.4 K/mm3 (4.4-11.0)
[2024-09-05 08:25] LABS: Differential Indicated MANUAL DIFF
[2024-09-05] MEDS: predniSONE 20 MG Tablet 40 MG PO (08:36)
[2024-09-05] MEDS: Metoprolol Tartrate 25 MG Tablet 12.5 MG PO ×2 (08:37→21:23)
[2024-09-05] MEDS: Bisacodyl 5 MG Tablet 20 MG PO (08:37)
[2024-09-05] MEDS: Sodium Polystyrene Sulfonate 15 GM/60 ML UDC 30 GM PO (08:38)
[2024-09-05] MEDS: Creon 24,000 unit DR Capsule 3 CAP PO (08:38)
[2024-09-05] MEDS: Nystatin Powder 15gm Bottle 1 APPLIC TOPICAL ×2 (08:39→21:24)
[2024-09-05] MEDS: Budesonide 3 MG CAPSULE.EC 9 MG PO (08:39)
[2024-09-05] MEDS: Vibegron 75 MG TABLET PO (08:39)
[2024-09-05 08:42] LABS: ALB/GLOB Ratio 1.5 RATIO (0.9-2.4); AST(SGOT) 27 U/L (15-37); Alanine Aminotransfer ALT/SGPT 40 U/L (13-56); Albumin, Serum 2.6 g/dL (3.2-5.0); Alkaline Phosphatase 73 U/L (45-117); Anion Gap 7 (5-15); BUN 40 mg/dL (7-18); BUN/Creat Ratio 34.8 RATIO (10-20); Calcium,Total 9.2 mg/dL (8.5-10.1); Chloride 110 mmol/L (98-107); Creatinine, Serum 1.15 mg/dL (0.55-1.02); EST Glomerular Filtration Rate 49 mL/min (>60); Est Glom Filt Rate - Afr Amer 59 mL/min (>60); Estimated Creatinine Clearance 43.53 ml/min; Globulin 1.7 g/dL (2.2-4.2); Glucose 396 mg/dL (74-106); Potassium 5.6 mmol/L (3.5-5.1); Protein, Total 4.3 g/dL (6.4-8.2); Sodium Level 140 mmol/L (136-145)
--- NOTE | 2024-09-05 08:54 | CASEMGMT ---
Discharge Planning Updates sent to [facility] via [facility]. Evonne Simms DC Planning Asst.
--- NOTE | 2024-09-05 09:07 | PN.HOSP_ITS ---
Reason for Visit Reason for Visit: Diagnoses Diverticulitis of intestine, part unspecified, without perforation or abscess without bleeding (08/30/24) Nausea with vomiting, unspecified (08/30/24) Subjective Subjective The date of this entry is 09/04/2024: Patient was seen and examined today, I talked at length with her , she seems more alert today and is able to answer questions to this examiner. Patient has agreed to go to an extended care facility for short-term rehab services and I think she is stable today for discharge. Objective Data Objective Data Vital Signs: Vital Signs Temp Pulse Resp BP Pulse Ox O2 Del Method O2 Flow Rate 97.5 F L 124 H 18 132/85 H 98 Room Air 2 09/05/24 08:28 09/05/24 08:37 09/05/24 08:28 09/05/24 08:28 09/05/24 08:28 09/05/24 08:28 09/03/24 13:18 Oxygen Flow Rate (L/min) 2 Oxygen Delivery Method Room Air Weight: 83.6 kg Body Mass Index (BMI) 31.6 Intake & Output: Intake and Output for Last 24 Hours 09/03/24 09/04/24 09/05/24 23:59 23:59 23:59 Intake Total 250 / 250 460 / 460 1120.00 / 1120.00 Balance 250 / 250 460 / 460 1120.00 / 1120.00 Lab / Micro Data 09/05/24 04:23 09/05/24 04:23 Labs: Laboratory Results - last 24 hr 09/04/24 21:20: WBC 18.1 H, RBC 4.07 L, Hgb 11.5 L, Hct 37.1, MCV 91.2, MCH 28.3, MCHC 31.0 L, RDW Std Deviation 55.6 H, RDW Coeff of Orestes 16.9 H, Plt Count 385, MPV 12.6 H, Neut % (Auto) Not Reportable, Absolute Neuts (auto) 12.7 H, Absolute Lymphs (auto) 1.27, Total Counted 100, Neutrophils % (Manual) 64, Band Neutrophils % 6 H, Lymphocytes % (Manual) 7 L, Monocytes % (Manual) 19 H, M etamyelocytes % 3 H, Myelocytes % 1 H, Diff Path Review March, PT 13.8, INR 1.1, Sodium 144, Potassium 4.0, Chloride 124 H, Carbon Dioxide 13.0 L, Anion Gap 7, BUN 27 H, Creatinine 0.64, Estim Creat Clear Calc 62.58, Est GFR (MDRD) Af Amer 115, Est GFR (MDRD) Non-Af 95, BUN/Creatinine Ratio 41.9 H, Glucose 373 H, Calcium 5.7 L*, Total Bilirubin 0.40, AST 24, ALT 25, Alkaline Phosphatase 48, T otal Protein 3.2 L, Albumin 1.6 L, Globulin 1.6 L, Albumin/Globulin Ratio 1.0 09/05/24 03:27: Sodium 136, Potassium 5.8 H, Chloride 109 H, Carbon Dioxide 20.0 L, Anion Gap 7, BUN 40 H, Creatinine 1.20 H, Estim Creat Clear Calc 41.72, Est GFR (MDRD) Af Amer 56 L, Est GFR (MDRD) Non-Af 46 L, BUN/Creatinine Ratio 33.3 H , Glucose 401 H, Calcium 9.6 09/05/24 04:23: WBC 24.3 H 09/05/24 04:23: WBC 24.4 H, RBC 3.66 L 09/05/24 04:23: RBC 3.67 L, Hgb 10.5 L 09/05/24 04:23: Hgb 10.7 L, Hct 33.3 L 09/05/24 04:23: Hct 33.6 L, MCV 91.0 09/05/24 04:23: MCV 91.6, MCH 28.7 09/05/24 04:23: MCH 29.2, MCHC 31.5 L 09/05/24 04:23: MCHC 31.8 L, RDW Std Deviation 54.8 H 09/05/24 04:23: RDW Std Deviation 55.8 H, RDW Coeff of Orestes 16.6 H 09/05/24 04:23: RDW Coeff of Orestes 16.9 H, Plt Count 327 09/05/24 04:23: Plt Count 303, MPV 12.7 H 09/05/24 04:23: MPV 13.2 H, Neut % (Auto) Not Reportable 09/05/24 04:23: Neut % (Auto) Not Reportable, Absolute Neuts (auto) 17.7 H, Absolute Lymphs (auto) 2.43, Total Counted 100, Neutrophils % (Manual) 72 H, Band Neutrophils % 1, Lymphocytes % (Manual) 10 L, Monocytes % (Manual) 12 H, M etamyelocytes % 3 H, Myelocytes % 2 H, Nucleated RBCs/100 WBC 2, Diff Path Review May , Platelet Estimate ADEQUATE, Polychromasia 1+, Anisocytosis 2+, Tear Drop Cells RARE, Sodium 140, Potassium 5.6 H, Chloride 110 H, Carbon Dioxide 23.0, Anion Gap 7, BUN 40 H, Creatinine 1.15 H, Estim Creat Clear Calc 43.53, Est GFR (MDRD) Af Amer 59 L, Est GFR (MDRD) Non-Af 49 L, BUN/Creatinine Ratio 34.8 H, Glucose 396 H, Calcium 9.2, Total Bilirubin 0.50, AST 27, ALT 40, Alkaline Phosphatase 73, Total Protein 4.3 L, Albumin 2.6 L, Globulin 1.7 L, Albumin/Globulin Ratio 1.5 Micro: Microbiology 08/31/24 14:25 Stool Enteric Bacteriology - Final 08/31/24 14:25 Stool Clostridioides difficile (PCR) - Final Rhythm Strip Rhythm Strip: Sinus Rhythm Rate: 95 Ectopy: None Physical Exam Narrative no apparent distress Constitutional Narrative: Patient appears alert, she is able to carry on conversation today General Appearance: cooperative, well kempt and well developed HEENT normocephalic, head/scalp atraumatic and moist oral mucous membranes Eyes PERRL, EOMs intact bilaterally and conjunctivae normal Neck supple, no JVD and thyroid normal General: trachea midline Resp normal respiratory effort, no retractions, no use of accessory muscles and clear to auscultation bilaterally Auscultation: Negative for rales, rhonchi or wheezes Cardio regular rate, regular rhythm, S1 normal heart sound, S2 normal heart sound, no murmurs, no rub and no gallops GI normal to inspection, nondistended, normoactive bowel sounds, soft to palpation, non-tender and non-distended Extremity no clubbing, cyanosis or edema Skin no rashes or lesions noted General Skin Exam: no breakdown Neuro CN's II-XII intact bilaterally, no focal motor deficits and no sensory deficits noted Neuro Narrative: Patient is alert and oriented x 2 Psych Psych Narrative: Patient is alert and able to carry on a conversation, she is oriented x 2 Assessment & Plan Assessment/Plan (1) Intractable nausea and vomiting: (2) Diverticulitis: PLAN: Plan 1. Intractable nausea and vomiting-etiology unclear, this has resolved presently, patient appears to be stable for discharge to an extended care facility today for short-term rehab services #2 chronic diarrhea-probably secondary to lymphocytic colitis, patient is on budesonide and prednisone at this time #3 debility-patient will be transferred to an extended care facility for short- term rehab services today #4 coronary artery disease-continue aspirin, statin, and metoprolol #5 lethargy-this is resolved since her Ativan has been discontinued Total clinical time spent by myself addressing the patient's medical issues, reviewing all of her data, and collaborating with patient's care team: 35 minutes Charges/Coding Visit Charges Inpatient E&M: 22626 Subs Hosp L2
[2024-09-05 09:22] LABS: Absolute Neutrophil Count 17.8 X10^3/uL (2.0-7.7); Lymphocyte 5 % (19-41); Metamyelocyte 1 % (0-1); Monocyte 20 % (0-10); Myelocyte 1 % (0-0); Neutrophil-Band 1 % (0-5); Neutrophil-Segmented 72 % (47-70); Platelet Estimate ADEQUATE (ADEQ); Red Cell Morphology NORM C+C NORMAL (NORM C&C); Total Cells Counted 100 (MANUAL DIFF)
[2024-09-05 09:23] LABS: Absolute Lymphocyte Count 1.22 X10^3/uL (0.83-4.51); Lymphocyte # 1.22 X10^3/ul (0.83-4.51)
--- NOTE | 2024-09-05 09:35 | PN.HOSP_ITS ---
Reason for Visit Reason for Visit: Diagnoses Diverticulitis of intestine, part unspecified, without perforation or abscess without bleeding (08/30/24) Nausea with vomiting, unspecified (08/30/24) Subjective Subjective Patient was seen and examined today, she had some bright red rectal bleeding last night and her discharge was canceled, I talked with her about undergoing a colonoscopy and she stated that she wanted the opinion of her , I called the by phone and he said that he feels that she needs to go through with a colonoscopy. I also talked with gastroenterology about it, I think the colonoscopy is warranted because the patient is going to an extended care facility and if she has repeat rectal bleeding there she will most likely be sent back to the ER here. Objective Data Objective Data Vital Signs: Vital Signs Temp Pulse Resp BP Pulse Ox O2 Del Method O2 Flow Rate 97.5 F L 124 H 18 132/85 H 98 Room Air 2 09/05/24 08:28 09/05/24 08:37 09/05/24 08:28 09/05/24 08:28 09/05/24 08:28 09/05/24 08:28 09/03/24 13:18 Oxygen Flow Rate (L/min) 2 Oxygen Delivery Method Room Air Weight: 83.6 kg Body Mass Index (BMI) 31.6 Intake & Output: Intake and Output for Last 24 Hours 09/03/24 09/04/24 09/05/24 23:59 23:59 23:59 Intake Total 250 / 250 460 / 460 1120.00 / 1120.00 Balance 250 / 250 460 / 460 1120.00 / 1120.00 Lab / Micro Data 09/05/24 04:23 09/05/24 04:23 Labs: Laboratory Results - last 24 hr 09/04/24 21:20: WBC 18.1 H, RBC 4.07 L, Hgb 11.5 L, Hct 37.1, MCV 91.2, MCH 28.3, MCHC 31.0 L, RDW Std Deviation 55.6 H, RDW Coeff of Orestes 16.9 H, Plt Count 385, MPV 12.6 H, Neut % (Auto) Not Reportable, Absolute Neuts (auto) 12.7 H, Absolute Lymphs (auto) 1.27, Total Counted 100, Neutrophils % (Manual) 64, Band Neutrophils % 6 H, Lymphocytes % (Manual) 7 L, Monocytes % (Manual) 19 H, M etamyelocytes % 3 H, Myelocytes % 1 H, Diff Path Review March, PT 13.8, INR 1.1, Sodium 144, Potassium 4.0, Chloride 124 H, Carbon Dioxide 13.0 L, Anion Gap 7, BUN 27 H, Creatinine 0.64, Estim Creat Clear Calc 62.58, Est GFR (MDRD) Af Amer 115, Est GFR (MDRD) Non-Af 95, BUN/Creatinine Ratio 41.9 H, Glucose 373 H, Calcium 5.7 L*, Total Bilirubin 0.40, AST 24, ALT 25, Alkaline Phosphatase 48, T otal Protein 3.2 L, Albumin 1.6 L, Globulin 1.6 L, Albumin/Globulin Ratio 1.0 09/05/24 03:27: Sodium 136, Potassium 5.8 H, Chloride 109 H, Carbon Dioxide 20.0 L, Anion Gap 7, BUN 40 H, Creatinine 1.20 H, Estim Creat Clear Calc 41.72, Est GFR (MDRD) Af Amer 56 L, Est GFR (MDRD) Non-Af 46 L, BUN/Creatinine Ratio 33.3 H , Glucose 401 H, Calcium 9.6 09/05/24 04:23: WBC 24.3 H 09/05/24 04:23: WBC 24.4 H, RBC 3.66 L 09/05/24 04:23: RBC 3.67 L, Hgb 10.5 L 09/05/24 04:23: Hgb 10.7 L, Hct 33.3 L 09/05/24 04:23: Hct 33.6 L, MCV 91.0 09/05/24 04:23: MCV 91.6, MCH 28.7 09/05/24 04:23: MCH 29.2, MCHC 31.5 L 09/05/24 04:23: MCHC 31.8 L, RDW Std Deviation 54.8 H 09/05/24 04:23: RDW Std Deviation 55.8 H, RDW Coeff of Orestes 16.6 H 09/05/24 04:23: RDW Coeff of Orestes 16.9 H, Plt Count 327 09/05/24 04:23: Plt Count 303, MPV 12.7 H 09/05/24 04:23: MPV 13.2 H, Neut % (Auto) Not Reportable 09/05/24 04:23: Neut % (Auto) Not Reportable, Absolute Neuts (auto) 17.7 H 09/05/24 04:23: Absolute Neuts (auto) 17.8 H, Absolute Lymphs (auto) 2.43 09/05/24 04:23: Absolute Lymphs (auto) 1.22, Total Counted 100 09/05/24 04:23: Total Counted 100, Neutrophils % (Manual) 72 H 09/05/24 04:23: Neutrophils % (Manual) 72 H, Band Neutrophils % 1 09/05/24 04:23: Band Neutrophils % 1, Lymphocytes % (Manual) 10 L 09/05/24 04:23: Lymphocytes % (Manual) 5 L, Monocytes % (Manual) 12 H 09/05/24 04:23: Monocytes % (Manual) 20 H, Metamyelocytes % 3 H 09/05/24 04:23: Metamyelocytes % 1, Myelocytes % 2 H 09/05/24 04:23: Myelocytes % 1 H, Nucleated RBCs/100 WBC 2, Diff Path Review May foll 09/05/24 04:23: Diff Path Review May foll, Platelet Estimate ADEQUATE 09/05/24 04:23: Platelet Estimate ADEQUATE, RBC Morphology NORM C+C, Polychromasia 1+, Anisocytosis 2+, Tear Drop Cells RARE, Sodium 140, Potassium 5.6 H, Chloride 110 H, Carbon Dioxide 23.0, Anion Gap 7, BUN 40 H, Creatinine 1.15 H, Estim Creat Clear Calc 43.53, Est GFR (MDRD) Af Amer 59 L, Est GFR (MDRD) Non-Af 49 L, BUN/Creatinine Ratio 34.8 H, Glucose 396 H, Calcium 9.2, Total Bilirubin 0.50, AST 27, ALT 40, Alkaline Phosphatase 73, Total Protein 4.3 L, Albumin 2.6 L, Globulin 1.7 L, Albumin/Globulin Ratio 1.5 Micro: Microbiology 08/31/24 14:25 Stool Enteric Bacteriology - Final 08/31/24 14:25 Stool Clostridioides difficile (PCR) - Final Rhythm Strip Rhythm Strip: Sinus Rhythm Rate: 95 Ectopy: None Physical Exam Narrative no apparent distress Constitutional Narrative: Patient appears alert, she is able to carry on conversation today General Appearance: cooperative, well kempt and well developed HEENT normocephalic, head/scalp atraumatic and moist oral mucous membranes Eyes PERRL, EOMs intact bilaterally and conjunctivae normal Neck supple, no JVD and thyroid normal General: trachea midline Resp normal respiratory effort, no retractions, no use of accessory muscles and clear to auscultation bilaterally Auscultation: Negative for rales, rhonchi or wheezes Cardio regular rate, regular rhythm, S1 normal heart sound, S2 normal heart sound, no murmurs, no rub and no gallops GI normal to inspection, nondistended, normoactive bowel sounds, soft to palpation, non-tender and non-distended Extremity no clubbing, cyanosis or edema Skin no rashes or lesions noted General Skin Exam: no breakdown Neuro CN's II-XII intact bilaterally, no focal motor deficits and no sensory deficits noted Neuro Narrative: Patient is alert and oriented x 2 Psych Psych Narrative: Patient is alert and able to carry on a conversation, she is oriented x 2 Assessment & Plan Assessment/Plan (1) Vomiting: (2) Intractable nausea and vomiting: (3) Diverticulitis: PLAN: Plan 1. 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
[2024-09-05] MEDS: Pantoprazole Sodium 40 MG in 0.9% Normal Saline (100mL MB+) 100 ML 330 MG IV ×2 (10:27→21:21)
[2024-09-05] MEDS: 0.9% Normal Saline (1000mL) 1,000 ML 75 ML IV (11:24)
[2024-09-05] MEDS: Insulin Lispro 100 UNIT/ML INSULN.PEN SC ×3 (11:31→23:44)
[2024-09-05 11:53] LABS: Bedside Glucose 251 mg/dL (74-106)
--- NOTE | 2024-09-05 12:45 | NURSING ---
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 Anh states she will send it up
[2024-09-05 13:15] LABS: Pathologist Review Reviewed
[2024-09-05 13:16] LABS: Pathologist Review Reviewed
--- NOTE | 2024-09-05 13:34 | PHA.DC.MR.R ---
Pharmacy [place] Med Reconciliation Pharmacy Service has performed discharge medication reconciliation for this patient. The patient's discharge medication list was reviewed for discrepancies and discrepancies were resolved. Medications at Discharge Home Medications carboxymethylcellulose sodium 0.5 % eye drops (Refresh Tears) 1 drp ophthalmic (eye) 4-8XD PRN Dry Eyes 08/31/18 aspirin 81 mg tablet,delayed release (Adult Low Dose Aspirin) 81 mg PO DAILY 01/19/22 potassium chloride 10 mEq capsule,extended release 10 meq PO BID SUPPLEMENT 01/19/22 handicap placcard #1 ea 12/15/22 cholecalciferol (vitamin D3) 25 mcg (1,000 unit) capsule (Vitamin D3) 50 mcg PO DAILY 03/23/23 metoprolol tartrate 25 mg tablet 12.5 mg (1/2 x 25 mg) PO BID #90 tabs 02/02/24 atorvastatin 10 mg tablet (Lipitor) 10 mg PO QHS cholesterol #90 tabs 05/28/24 vibegron 75 mg tablet (Gemtesa) 75 mg PO QDAY 08/07/24 acetaminophen 325 mg tablet 650 mg (2 x 325 mg) PO Q6H PRN PRN Pain 1-10 Or Fever >100.7 #0 tabs 09/04/24 budesonide 3 mg capsule,delayed,extended release 9 mg (3 x 3 mg) PO DAILY #0 ea 09/04/24 enoxaparin 40 mg/0.4 mL subcutaneous syringe 40 mg (0.4 mL) subcut DAILY #0 mL 09/04/24 food supplemt, lactose-reduced (Ensure Compact oral liquid) 118 ml PO TIDCM #0 mL 09/04/24 [id number]-ascvovtr-golnmnm 24,000-76,000-120,000 unit capsule,delayed rel (Creon) 3 cap PO TIDCM #0 caps 09/04/24 menthol 0.44 %-zinc oxide 20.6 % topical ointment (Calmoseptine) 1 applic topical BID PRN DIAPER RASH #0 grams 09/04/24 nystatin 100,000 unit/gram topical powder (Nyamyc) 1 applic topical BID #0 grams 09/04/24 prednisone 20 mg tablet 40 mg (2 x 20 mg) PO BREAKFAST #0 tabs 09/04/24 prochlorperazine maleate 10 mg tablet (Compazine) 10 mg PO Q6H PRN nausea and vomiting #1 TAB 09/04/24
--- NOTE | 2024-09-05 13:37 | CASEMGMT ---
Social Work- SW received a call from Babita at [facility] in regards to pt granddaughter, a SOUND TECHNICIAN from [place], calling to see if hospice services had been discussed with pt. SW advised physician of call; physician reports that pt/spouse were not interested in hospice services in prior. SW followed up with pt & pt spouse in regards to if they would like to add any family as contacts. Pt/spouse would not like to add any family members. SW inquired into if pt goals of care remain the same and [facility] is still the plan for d/c. Pt spouse states the goals of care remain the same and the plan is still [facility] at d/c. Pt spouse reports he is not interested in hospice or palliative at this time and does not feel additional information on services for future need is warranted at this time. Pt spouse acknowledges pt recent decline, but reports that he feels pursuing treatments is still a viable means by which to improve pt condition. SW to remain available to follow for any needs. Hospice updated that a consult is not desired at this time and encouraged direction of inquiries of [facility] pt to reach out to the hospital directly. CESIA Dominguez
[2024-09-05] MEDS: Polyethylene Glycol 3350 BOWEL PREP PO (13:47)
[2024-09-05 18:09] LABS: Bedside Glucose 382 mg/dL (74-106)
--- NOTE | 2024-09-05 18:31 | PN.GI_ITS ---
Subjective Subjective I was alerted that patient did have multiple episodes of lower GI bleeding and diarrhea. She continues to be on oral and IV steroids. Objective Data Objective Data Vital Signs: Vital Signs Temp Pulse Resp BP Pulse Ox O2 Del Method O2 Flow Rate 96.9 F L 114 H 18 144/90 H 96 Room Air 2 09/05/24 14:32 09/05/24 14:32 09/05/24 14:32 09/05/24 14:32 09/05/24 14:32 09/05/24 14:32 09/03/24 13:18 Oxygen Flow Rate (L/min) 2 Oxygen Delivery Method Room Air Weight: 184 lb 4.903 oz Body Mass Index (BMI) 31.6 Intake & Output: Intake and Output for Last 24 Hours 09/03/24 09/04/24 09/05/24 23:59 23:59 23:59 Intake Total 250 / 250 460 / 460 1340.00 / 1340.00 Balance 250 / 250 460 / 460 1340.00 / 1340.00 Lab / Micro Data 09/05/24 04:23 09/05/24 04:23 Labs: Laboratory Results - last 24 hr 09/04/24 21:20: WBC 18.1 H, RBC 4.07 L, Hgb 11.5 L, Hct 37.1, MCV 91.2, MCH 28.3, MCHC 31.0 L, RDW Std Deviation 55.6 H, RDW Coeff of Orestes 16.9 H, Plt Count 385, MPV 12.6 H, Neut % (Auto) Not Reportable, Absolute Neuts (auto) 12.7 H, Absolute Lymphs (auto) 1.27, Total Counted 100, Neutrophils % (Manual) 64, Band Neutrophils % 6 H, Lymphocytes % (Manual) 7 L, Monocytes % (Manual) 19 H, M etamyelocytes % 3 H, Myelocytes % 1 H, Diff Path Review Reviewed, PT 13.8, INR 1.1, Sodium 144, Potassium 4.0, Chloride 124 H, Carbon Dioxide 13.0 L, Anion Gap 7, BUN 27 H, Creatinine 0.64, Estim Creat Clear Calc 62.58, Est GFR (MDRD) Af Amer 115, Est GFR (MDRD) Non-Af 95, BUN/Creatinine Ratio 41.9 H, Glucose 373 H, Calcium 5.7 L*, Total Bilirubin 0.40, AST 24, ALT 25, Alkaline Phosphatase 48, T otal Protein 3.2 L, Albumin 1.6 L, Globulin 1.6 L, Albumin/Globulin Ratio 1.0 09/05/24 03:27: Sodium 136, Potassium 5.8 H, Chloride 109 H, Carbon Dioxide 20.0 L, Anion Gap 7, BUN 40 H, Creatinine 1.20 H, Estim Creat Clear Calc 41.72, Est GFR (MDRD) Af Amer 56 L, Est GFR (MDRD) Non-Af 46 L, BUN/Creatinine Ratio 33.3 H , Glucose 401 H, Calcium 9.6 09/05/24 04:23: WBC 24.3 H 09/05/24 04:23: WBC 24.4 H, RBC 3.66 L 09/05/24 04:23: RBC 3.67 L, Hgb 10.5 L 09/05/24 04:23: Hgb 10.7 L, Hct 33.3 L 09/05/24 04:23: Hct 33.6 L, MCV 91.0 09/05/24 04:23: MCV 91.6, MCH 28.7 09/05/24 04:23: MCH 29.2, MCHC 31.5 L 09/05/24 04:23: MCHC 31.8 L, RDW Std Deviation 54.8 H 09/05/24 04:23: RDW Std Deviation 55.8 H, RDW Coeff of Orestes 16.6 H 09/05/24 04:23: RDW Coeff of Orestes 16.9 H, Plt Count 327 09/05/24 04:23: Plt Count 303, MPV 12.7 H 09/05/24 04:23: MPV 13.2 H, Neut % (Auto) Not Reportable 09/05/24 04:23: Neut % (Auto) Not Reportable, Absolute Neuts (auto) 17.7 H 09/05/24 04:23: Absolute Neuts (auto) 17.8 H, Absolute Lymphs (auto) 2.43 09/05/24 04:23: Absolute Lymphs (auto) 1.22, Total Counted 100 09/05/24 04:23: Total Counted 100, Neutrophils % (Manual) 72 H 09/05/24 04:23: Neutrophils % (Manual) 72 H, Band Neutrophils % 1 09/05/24 04:23: Band Neutrophils % 1, Lymphocytes % (Manual) 10 L 09/05/24 04:23: Lymphocytes % (Manual) 5 L, Monocytes % (Manual) 12 H 09/05/24 04:23: Monocytes % (Manual) 20 H, Metamyelocytes % 3 H 09/05/24 04:23: Metamyelocytes % 1, Myelocytes % 2 H 09/05/24 04:23: Myelocytes % 1 H, Nucleated RBCs/100 WBC 2, Diff Path Review Reviewed 09/05/24 04:23: Diff Path Review May , Platelet Estimate ADEQUATE 09/05/24 04:23: Platelet Estimate ADEQUATE, RBC Morphology NORM C+C, Polychromasia 1+, Anisocytosis 2+, Tear Drop Cells RARE, Sodium 140, Potassium 5.6 H, Chloride 110 H, Carbon Dioxide 23.0, Anion Gap 7, BUN 40 H, Creatinine 1.15 H, Estim Creat Clear Calc 43.53, Est GFR (MDRD) Af Amer 59 L, Est GFR (MDRD) Non-Af 49 L, BUN/Creatinine Ratio 34.8 H, Glucose 396 H, Calcium 9.2, Total Bilirubin 0.50, AST 27, ALT 40, Alkaline Phosphatase 73, Total Protein 4.3 L, Albumin 2.6 L, Globulin 1.7 L, Albumin/Globulin Ratio 1.5 09/05/24 11:23: POC Glucose 251 H 09/05/24 17:20: POC Glucose 382 H Micro: Microbiology 08/31/24 14:25 Stool Enteric Bacteriology - Final 08/31/24 14:25 Stool Clostridioides difficile (PCR) - Final Rhythm Strip Rhythm Strip: Sinus Rhythm Rate: 95 Ectopy: None Physical Exam Narrative no apparent distress Constitutional Narrative: Patient appears alert, she is able to carry on conversation today General Appearance: cooperative, well kempt and well developed HEENT normocephalic, head/scalp atraumatic and moist oral mucous membranes Eyes PERRL, EOMs intact bilaterally and conjunctivae normal Neck supple, no JVD and thyroid normal General: trachea midline Resp normal respiratory effort, no retractions, no use of accessory muscles and clear to auscultation bilaterally Auscultation: Negative for rales, rhonchi or wheezes Cardio regular rate, regular rhythm, S1 normal heart sound, S2 normal heart sound, no murmurs, no rub and no gallops GI normal to inspection, nondistended, normoactive bowel sounds, soft to palpation, non-tender and non-distended Extremity no clubbing, cyanosis or edema Skin no rashes or lesions noted General Skin Exam: no breakdown Neuro CN's II-XII intact bilaterally, no focal motor deficits and no sensory deficits noted Neuro Narrative: Patient is alert and oriented x 2 Psych Psych Narrative: Patient is alert and able to carry on a conversation, she is oriented x 2 Assessment & Plan Assessment/Plan (1) Diverticulitis: PLAN: Plan This 74-year-old female came to ED with right upper abdominal pain, nausea and diarrhea 1. I will order repeat CT abdomen/pelvis with IV contrast as her previous CT scan abdomen pelvis showed sigmoid diverticulitis with surrounding inflammation of mesocolon but no abscess or perforation. Patient was given Cipro and Flagyl. Her stool studies at this time did not show any signs of infection. I will order fecal elastase and fecal calprotectin to see if there is any inflammation from colon or small bowel just not being seen on her microbiology of her stool studies have been ordered. I will start her on IV prednisone and oral budesonide. 2. Acute RUQ abdominal pain-I do not think she has any signs or symptoms of biliary colic at this time. I think she would benefit from a gastric emptying study to see if she has any dumping syndrome or gastroparesis. 3. Hypokalemia: Potassium 2.7. IV potassium replacement ordered. Serum magnesium and phosphorus level ordered. 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 At that time she was admitted with right upper extremity cellulitis and was thought probably drug reaction from the Rituxan infusion and is currently to get a rituximab infusion in the near future. 5. CAD status post stent, history of chronic A-fib status post RFA and chronic HFpEF: Currently patient does not have acute chest pain or cardiac related symptoms. Home medications continued. On metoprolol Lipitor and aspirin. Last echo in 2020 shows EF 65% with stage II diastolic dysfunction. 6. Chronic right lung radiation pneumonitis with chronic dyspnea on exertion and chronic hypoxic respiratory failure: Patient follows hardwood flooring specialist Dr. Mando Rae. She had CA breast with the right sided radiation therapy and was told by Dr. Rae at that she has 40% lung function left on right lung. She is also on 2 to 3 L of O2 at home as needed. 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 Recommend to continue oral prednisone 40 mg a day x 2 weeks and continue 9 mg of budesonide per day. She is having some overflow incontinence secondary to very poor musculature. If she has any accidents then she will need to go on cholestyramine at night to thicken up her stool. 09/05/2024-I will prep her for colonoscopy tomorrow. Charges/Coding Visit Charges Inpatient E&M: 06090 Subs Hosp L3
[2024-09-05] MEDS: Atorvastatin Calcium 10 MG Tablet PO (21:23)
[2024-09-06] VITALS (18 sets, daily range): BP systolic 97–152; BP diastolic 43–84; PULSE 80–98; RESP 16–18; TEMP 35.9–37; O2SAT 95–99; BMI 31.6
--- NOTE | 2024-09-06 | COLBX_PTH ---
PATIENT: ANDRADE SANTOS LOC: [facility] U#:[id number] AGE/SX: 74/F ROOM: [facility] [place]30/[address]: Dr. Clive Arnold DO : 1950 BED: 1 DIS: 09/06/2024 SPEC #: [id number] RECD: 09/06/24 14:33 STATUS: KALIN MORRIS #: [id number] HELIO: 09/06/24 00:[address]: Carlin Mock DEPT: SURGICAL PATHOLOGY RECD BY: Chris Pryor ENTERED: 09/07/24 09:16 SP TYPE: COLON BX OTHR DR: MD Dr. Chay Bansal DO Dr. Mark Tereletsky, DO Dr. Paige Pierce, MD Tissues: A - Ileum, NOS B - SPLENIC FLEXURE Procedures: Surgery Specimen Level IV Comments: @ Ordering doctor for SUIV edited from to @ mustapha MEDINA at 09/07/24 1025 @ Submitting doctor edited from to @ by CAROL at 09/07/24 1025 HEADER OPERATION: Colonoscopy with biopsy PRE-OP DIAGNOSIS: Lower GI bleed, hemorrhoids TISSUE SUBMITTED: A- Terminal ileum biopsy, B- Splenic flexure biopsy MICROSCOPIC DIAGNOSIS A. Terminal ileum, biopsy: Fragments of small intestinal mucosa, no pathologic diagnosis. B. Splenic flexure, biopsy: Fragments of colonic mucosa, no pathologic diagnosis. ANA 09/10/2024 MICROSCOPIC DESCRIPTION Slides are reviewed. GROSS DESCRIPTION A. Received in fixative is one container labeled with the patient's name and designated Terminal ileum biopsy. The specimen consists of two irregular fragments of light hendrickson soft tissue that in aggregate measure 0.8 x 0.2 x 0.1 cm. The specimen is totally submitted in one cassette. B. Received in fixative is one container labeled with the patient's name and designated Splenic flexure biopsy. The specimen consists of multiple irregular fragments of light hendrickson soft tissue that in aggregate measures 0.5 x 0.2 x 0.1 cm. The specimen is totally submitted in one cassette. 09/07/2024 TC:4 CPT:84623v3
[2024-09-06 00:15] LABS: Bedside Glucose 258 mg/dL (74-106)
[2024-09-06 01:07] LABS: Pancreatic Elastase, Fecal 537 (>200)
[2024-09-06] MEDS: 0.9% Normal Saline (1000mL) 1,000 ML 75 ML IV (03:16)
[2024-09-06 07:06] LABS: Hematocrit 25.9 % (37-47); Hemoglobin 8.4 g/dL (12.0-15.0)
[2024-09-06 07:25] LABS: Bedside Glucose 148 mg/dL (74-106)
[2024-09-06 07:54] LABS: Anion Gap 5 (5-15); BUN 31 mg/dL (7-18); Calcium,Total 8.1 mg/dL (8.5-10.1); Chloride 115 mmol/L (98-107); Creatinine, Serum 0.82 mg/dL (0.55-1.02); EST Glomerular Filtration Rate 72 mL/min (>60); Est Glom Filt Rate - Afr Amer 88 mL/min (>60); Estimated Creatinine Clearance 61.05 ml/min; Glucose 177 mg/dL (74-106); Potassium 3.4 mmol/L (3.5-5.1); Sodium Level 143 mmol/L (136-145)
[2024-09-06 08:13] LABS: Calprotectin, Stool 45 ug/g (0-120)
[2024-09-06] MEDS: predniSONE 20 MG Tablet 40 MG PO (09:04)
[2024-09-06] MEDS: Budesonide 3 MG CAPSULE.EC 9 MG PO (09:05)
[2024-09-06] MEDS: Vibegron 75 MG TABLET PO (09:05)
[2024-09-06] MEDS: Metoprolol Tartrate 25 MG Tablet 12.5 MG PO (09:05)
[2024-09-06] MEDS: Nystatin Powder 15gm Bottle 1 APPLIC TOPICAL ×2 (09:06→20:40)
[2024-09-06] MEDS: Pantoprazole Sodium 40 MG in 0.9% Normal Saline (100mL MB+) 100 ML 330 MG IV ×2 (09:36→20:40)
[2024-09-06 11:51] LABS: Bedside Glucose 158 mg/dL (74-106)
--- NOTE | 2024-09-06 12:57 | CHAPLAIN ---
Type of Pastoral Visit ___ Initial Visit _x__ Follow-up Visit ___ On-call Visit ___ General Patient Visit ___ Spiritual Assessment ___ Family Conference ___ Bereavement ___ Rapid Response ___ Code Blue ___ Other (describe below) Pastoral Care Referral From _x__ Patient ___ Family ___ Nurse ___ Physician ___ Oracle Database Manager ___ Manager Storage ___ Other (describe below) Sacrament/Intervention ___ Active listening ___ Anointing ___ Restoration ___ Bereavement ___ Communion ___ Ellie exploration ___ ___ Life review _x__ Prayer ___ Reconciliation ___ Sacrament of Sick _x__ Supportive presence ___ Wedding ___ Other (describe below) Pastoral Comments patient is awake; spouse states that pt is being taken downstairs for a procedure at any minute; offer of support to patient and she is able to respond in the affirmative; offer of prayer and she says 'yes'; gave comforting words of presence and hope along with the prayer; pt is tearful and says thank you; spouse is also offered support
--- NOTE | 2024-09-06 13:10 | PRE.ANES_ITS ---
ASA Classification* ASA Classification ASA Classification: 3 (SEE WRITTEN PRE ANESTHESIA RECORD FOR FULL ASSESSMENT) Assessment & Plan Anesthesia* Anesthesia Assessment Anesthesia Assessment: Discussed sedation and/or anesthesia options, risks, benefits, and alternatives with patient/parents/legal guardian/POA. Questions invited. The patient/parents/legal guardian/POA seems to understand and agrees to proceed with anesthesia plan. Reviewed the physical assessment, medical history, allergy history and patient home medications list prior to surgery/procedure/anesthetic and documented any changes. Performed airway and anesthesia risk assessments. Anesthesia Type Anesthesia Type: MAC (SEE WRITTEN PRE ANESTHESIA RECORD FOR FULL ASSESSMENT) Anesthesia Focused Assessment* Temperature: 97.7 F Pulse Rate: 87 Blood Pressure: 141/43 Respiratory Rate: 16 Pulse Ox: 97 Airway Assessment Mouth opens: >3 cm Mallampati Score: II Focused Labs Anesthesia Preop lab: CBC WBC 24.4 K/mm3 (4.4-11.0) H 09/05/24 04:23 RBC 3.67 M/mm3 (4.2-5.4) L 09/05/24 04:23 Hgb 8.4 g/dL (12.0-15.0) L 09/06/24 06:41 Hct 25.9 % (37-47) L 09/06/24 06:41 Plt Count 303 K/mm3 (150-450) 09/05/24 04:23 CHEMISTRY Potassium 3.4 mmol/L (3.5-5.1) L 09/06/24 06:41 Sodium 143 mmol/L (136-145) 09/06/24 06:41 Magnesium 1.5 mg/dL (1.6-2.6) L 08/31/24 04:54 Phosphorus 2.5 mg/dL (2.5-4.9) 08/15/24 21:00 BUN 31 mg/dL (7-18) H 09/06/24 06:41 Creatinine 0.82 mg/dL (0.55-1.02) 09/06/24 06:41 Glucose 177 mg/dL (74-106) H 09/06/24 06:41 POC Glucose 158 mg/dL (74-106) H 09/06/24 11:21 TSH 2.38 uIU/mL (0.358-3.74) 02/29/24 12:50 COAG PT 13.8 SECONDS (11.7-14.9) 09/04/24 21:20 Pre-Assessment Diagnosis/Proposed Procedure Planned Operative Procedure(s): COLON Anesthesia History Anesthesia History - microstrategy architect: Anesthesia History - microstrategy architect Hx Hospitalization Yes: 11/2021 DIVERTICULITIS 10/25/22 12:44 Any Problems With Anesthesia No 09/06/24 11:23 Cholinesterase deficiency No 09/06/24 11:23 You/Your Family Experience No 09/06/24 11:23 fever (hyperthermia) with Relationship Recent Exposure to Contagious No 09/06/24 11:23 Disease Does patient have nerve No 09/06/24 11:23 stimulator Patient instructed to have No 09/06/24 11:23 device shut off --Does patient have Pacemaker No 09/06/24 11:23 or ICD? When Was Last Pacemaker Check QUESTION #4 FULL TEXT: You/Your Family Experience fever (hyperthermia) with Anesthesia Last Oral Intake Last Oral intake: Last Oral Intake NPO since 00:00 09/06/24 11:23 Meds taken in AM with sips of Yes 09/06/24 11:23 water? Meds patient instructed to see MAR 09/06/24 11:23 take am of surgery PONV PONV - microstrategy architect: PONV - microstrategy architect Female HX of Motion Sickness HX of N/V After Surgery Non-Smoker Duration of Surgery greater than 60 minutes Number of Risk Factors PONV Score Height & Weight Height & Weight: Anesthesia: Height & Weight Height 5 ft 4 in 09/06/24 11:23 Weight: 83.6 kg 09/06/24 11:23 Body Mass Index (BMI) 31.6 09/06/24 11:23 Respiratory Assessment Respiratory Assessment - microstrategy architect: Respiratory Tract Infection Hx - microstrategy architect Hx Respiratory Tract Infection No 09/06/24 11:23 STOP Sleep Apnea STOP Sleep Apnea - microstrategy architect: STOP Sleep Apnea - microstrategy architect Hx Hypertension Yes 08/31/24 16:13 Hx Sleep Apnea No 08/30/24 16:44 CPAP BIPAP Do you snore loudly (louder No 08/30/24 16:44 than talking or can be heard Do you often feel tired/ Yes 08/30/24 16:44 fatigued/ sleepy during daytime? Has anyone observed you stop No 08/30/24 16:44 breathing during sleep? STOP Results Positive 08/30/24 16:44 QUESTION #5 FULL TEXT : Do you snore loudly (louder than talking or can be heard through closed doors)? 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 Specify any problems Hx of Preganancy in last 3 N/A 08/30/24 16:44 Months Nurse Filling Out Transfusion FSTEINER 08/30/24 16:44 & Questions: Date: 08/30/24 08/30/24 16:44 Time: 16:46 08/30/24 16:44 Patient unable to answer at this time (ie. confused, unrespo /Reproduction History /Reproductive History - microstrategy architect: /Reproductive Hx- microstrategy architect Hx Now No 09/06/24 11:23 Gestational Age (in weeks): EDC: Hx Hx Para Hx Section SAB No 09/06/24 11:23 Active Medications Active Medications: Current Medications Generic Name Dose Route Start Last Admin Trade Name Freq PRN Reason Stop Dose Admin Acetaminophen 650 mg 08/30/24 16:50 09/03/24 05:27 Acetaminophen 325 Mg Tablet PO 650 mg Q6H PRN PRN Administration Pain 1-10 Or Fever >100.7 Aspirin 81 mg 08/31/24 10:00 09/06/24 09:03 Aspirin E.C. 81 Mg Tablet PO Not Given DAILY GENESIS Atorvastatin Calcium 10 mg 08/30/24 22:00 09/05/24 21:23 Atorvastatin Calcium 10 Mg Tablet PO 10 mg QHS GENESIS Administration Budesonide 9 mg 08/31/24 15:45 09/06/24 09:05 Budesonide 3 Mg Capsule.Ec PO 9 mg DAILY GENESIS Administration Calamine/Phenol 1 applic 08/30/24 16:50 09/04/24 08:13 Menthol/Lanolin/Calamine/Znox 113 Gm Tube TOPICAL 1 applic BID PRN Administration DIAPER RASH Protocol Glucagon 1 mg 09/05/24 07:15 Glucagon 1 Mg/Ml Syringe IM X1 PRN Hypoglycemia Protocol Sodium Chloride 500 mls @ 15 mls/hr 08/30/24 18:03 IV .[id number] PRN Saline Flush Sodium Chloride 500 mls @ 15 mls/hr 08/30/24 18:03 IV .[id number] PRN Additional IVPB Infusion Pantoprazole Sodium 40 mg/ 110 mls @ 330 mls/hr 09/04/24 22:30 09/06/24 11:33 Sodium Chloride IV Infused Q12 GENESIS Infusion Dextrose 250 mls @ 0 mls/hr 09/05/24 07:15 Dextrose 10%-Water IV .Q0M PRN HYPOGLYCEMIA Protocol As Directed Insulin Human Lispro 0 unit 09/05/24 12:00 09/06/24 11:33 Insulin Lispro 100 Unit/Ml Insuln.Pen SC Not Given Q6 GENESIS Protocol Melatonin 3 mg 08/30/24 16:50 09/01/24 23:54 Melatonin 3 Mg Tablet PO 3 mg QHS PRN PRN Administration INSOMNIA Metoprolol Tartrate 12.5 mg 08/30/24 22:00 09/06/24 09:05 Metoprolol Tartrate 25 Mg Tablet PO 12.5 mg BID GENESIS Administration Protocol Nutritional Formula (Lactose Free) 118 ml 09/01/24 17:00 09/06/24 11:15 Ensure Compact 118 Ml Liquid PO Not Given TIDCM GENESIS Nystatin 1 applic 09/03/24 10:00 09/06/24 09:06 Nystatin Powder 15gm Bottle TOPICAL 1 applic BID GENESIS Administration Protocol Ondansetron HCl 4 mg 08/30/24 16:50 Ondansetron 4 Mg/2 Ml Vial IV Q8H PRN PRN NAUSEA/VOMITING Pancrelipase 3 cap 08/30/24 17:00 09/06/24 11:[address] Capsule PO Not Given TIDCM GENESIS Prednisone 40 mg 09/04/24 12:00 09/06/24 09:04 Prednisone 20 Mg Tablet PO 40 mg BREAKFAST GENESIS Administration Senna/Docusate Sodium 2 tablet 08/30/24 16:50 Senna/Docusate Sodium 1 Tablet PO BID PRN PRN Constipation Sodium Chloride 10 - 40 ml 08/30/24 18:03 09/04/24 06:42 0.9% Saline Lock 10 Ml Syringe IV 10 ml UD PRN Administration SALINE FLUSH [facility] Medical History Myocardial infarct TIA (transient ischemic attack) Wears hearing aid Loss of hearing Wears glasses Post-menopausal Cancer Uses wheelchair Walker as ambulation aid Bladder disease Easy bruising Back pain History of diverticulitis Non-smoker Hoarseness Shortness of breath on exertion History of edema History of echocardiogram History of stress test Cardiology follow-up encounter History of atrial fibrillation C. difficile colitis Anxiety Depression Arthritis On home oxygen therapy Colitis Diverticulitis Tami's granulomatosis History of ST elevation myocardial infarction (STEMI) (11/25/20) Atherosclerotic heart disease of [place] coronary artery without angina pectoris History of breast cancer Neuropathy Chronic rhinitis Vitamin deficiency Tear film insufficiency Osteopenia Mixed hyperlipidemia Essential (primary) hypertension Breast cancer Paroxysmal atrial fibrillation Home Medications ?Medication ?Instructions ?Recorded ?Last Taken ?Type carboxymethylcellulose sodium 0.5 1 drp ophthalmic (eye) 4-8XD PRN 08/31/18 01/18/22 History % eye drops (Refresh Tears) Dry Eyes aspirin 81 mg tablet,delayed 81 mg PO DAILY 01/19/22 08/16/24 History release (Adult Low Dose Aspirin) potassium chloride 10 mEq 10 meq PO BID SUPPLEMENT 01/19/22 08/16/24 History capsule,extended release handicap placcard #1 ea 12/15/22 Unknown Rx cholecalciferol (vitamin D3) 25 50 mcg PO DAILY 03/23/23 08/16/24 History mcg (1,000 unit) capsule (Vitamin D3) metoprolol tartrate 25 mg tablet 12.5 mg (1/2 x 25 mg) PO BID #90 02/02/24 08/16/24 Rx tabs atorvastatin 10 mg tablet (Lipitor) 10 mg PO QHS cholesterol #90 tabs 05/28/24 08/16/24 Rx vibegron 75 mg tablet (Gemtesa) 75 mg PO QDAY 08/07/24 08/16/24 History acetaminophen 325 mg tablet 650 mg (2 x 325 mg) PO Q6H PRN PRN 09/04/24 Unknown Rx Pain 1-10 Or Fever >100.7 #0 tabs budesonide 3 mg 9 mg (3 x 3 mg) PO DAILY #0 ea 09/04/24 Unknown Rx capsule,delayed,extended release enoxaparin 40 mg/0.4 mL 40 mg (0.4 mL) subcut DAILY #0 mL 09/04/24 Unknown Rx subcutaneous syringe food supplemt, lactose-reduced 118 ml PO TIDCM #0 mL 09/04/24 Unknown Rx (Ensure Compact oral liquid) [id number] 3 cap PO TIDCM #0 caps 09/04/24 Unknown Rx 24,000-76,000-120,000 unit capsule,delayed rel (Creon) menthol 0.44 %-zinc oxide 20.6 % 1 applic topical BID PRN DIAPER 09/04/24 Unknown Rx topical ointment (Calmoseptine) RASH #0 grams nystatin 100,000 unit/gram topical 1 applic topical BID #0 grams 09/04/24 Unknown Rx powder (Nyamyc) prednisone 20 mg tablet 40 mg (2 x 20 mg) PO BREAKFAST #0 09/04/24 Unknown Rx tabs prochlorperazine maleate 10 mg 10 mg PO Q6H PRN nausea and 09/04/24 Unknown Rx tablet (Compazine) vomiting #1 TAB Allergy/AdvReac Type Severity Reaction Status Date / Time No Known Allergies Allergy Verified 08/30/24 12:06 Family History Father Heart disease Colon cancer Mother Breast cancer CVA (cerebral vascular accident) Grandmother CVA (cerebral vascular accident) Brother Diabetes Surgical History History of appendectomy Personal history of gastric banding Hx of abdominoplasty Hx of breast reduction, elective History of radiofrequency ablation procedure for cardiac arrhythmia (05/15/19) History of coronary artery stent placement (11/25/20) History of cataract surgery H/O mastectomy History of tonsillectomy History of appendectomy History of adjustable gastric banding History of left heart catheterization (05/15/08) Social History household members: spouse Smoking Status: Never smoker alcohol intake: never caffeine: No what type of physical activity do you participate in: swimming and aerobics frequency: 3-4 times per week Review of Systems (Anesthesia) ROS Narrative System reviewed and no additional complaints, except as documented.
--- NOTE | 2024-09-06 14:06 | OP.CCLET_ITS ---
09/06/2024 Rito Stewart Re : Colonoscopy procedure for Karen Giordano Terry This procedure was performed on August. My impressions and recommendations are as follows: Impressions : - Diverticulosis in the recto-sigmoid colon and in the sigmoid colon. - The examination was otherwise normal on direct and retroflexion views. - No specimens collected. Recommendations : - Return patient to [facility] for ongoing care. - Resume regular diet. - Continue present medications. - No recommendation at this time regarding repeat colonoscopy due to age. My findings are described in the full procedure note, which is enclosed. If I can be of further assistance, please feel free to contact me at . Sincerely, Carlin Mock, 09/06/2024 2:05:44 PM This report has been signed electronically.
--- NOTE | 2024-09-06 14:06 | OP.COLON_ITS ---
Patient Name: Karen Falk Procedure Date: 09/06/2024 1:21 PM Date of : 1950 Age: 74 Procedure: Colonoscopy Indications: Rectal bleeding Providers: Carlin Mock DO Medicines: Monitored Anesthesia Care Patient Profile: This is a 74 year old female. Refer to note in patient chart for documentation of history and physical. Last Colonoscopy: date unknown. Unable to locate last colonoscopy report. Complications: No immediate complications. Procedure: Pre-Anesthesia Assessment: - Prior to the procedure, a History and Physical was performed, and patient medications and allergies were reviewed. The patient is competent. The risks and benefits of the procedure and the sedation options and risks were discussed with the patient. All questions were answered and informed consent was obtained. Patient identification and proposed procedure were verified by the physician in the pre-procedure area. Mental Status Examination: alert and oriented. Airway Examination: normal oropharyngeal airway and neck mobility. Respiratory Examination: clear to auscultation. CV Examination: normal. Prophylactic Antibiotics: The patient does not require prophylactic antibiotics. Prior Anticoagulants: The patient has taken no anticoagulant or antiplatelet agents except for NSAID medication. ASA Grade Assessment: II - A patient with mild systemic disease. After reviewing the risks and benefits, the patient was deemed in satisfactory condition to undergo the procedure. The anesthesia plan was to use monitored anesthesia care (MAC). Immediately prior to administration of medications, the patient was re-assessed for adequacy to receive sedatives. The heart rate, respiratory rate, oxygen saturations, blood pressure, adequacy of pulmonary ventilation, and response to care were monitored throughout the procedure. The physical status of the patient was re-assessed after the procedure. After I obtained informed consent, the scope was passed under direct vision. Throughout the procedure, the patient's blood pressure, pulse, and oxygen saturations were monitored continuously. The was introduced through the anus and advanced to the terminal ileum. The colonoscopy was performed without difficulty. The patient tolerated the procedure well. The quality of the bowel preparation was adequate. The terminal ileum, ileocecal valve, appendiceal orifice, and rectum were photographed. The Colonoscope was introduced through the anus and advanced to the terminal ileum. Scope In: 1:45:10 PM Scope Withdrawal Time 0 hours 9 minutes 56 seconds Scope Out: 2:01:55 PM Total Procedure Duration Time 0 hours 16 minutes 45 seconds Findings: The perianal and digital rectal examinations were normal. Multiple small and large-mouthed diverticula were found in the recto-sigmoid colon and sigmoid colon. The exam was otherwise without abnormality on direct and retroflexion views. Localized moderate inflammation characterized by erythema and granularity was found at the hepatic flexure. Biopsies were taken with a cold forceps for histology. Impression: - Diverticulosis in the recto-sigmoid colon and in the sigmoid colon. - The examination was otherwise normal on direct and retroflexion views. - No specimens collected. Recommendation: - [facility] to [facility]. - Resume regular diet. - Continue present medications. - No recommendation at this time regarding repeat colonoscopy due to age. Procedure Code(s): --- Professional --- 35331, Colonoscopy, flexible; with biopsy, single or multiple CPT copyright 2021 [employer]. All rights reserved. The codes documented in this report are preliminary and upon death surveys coder review may be revised to meet current compliance requirements. Carlin Mock DO 09/06/2024 2:05:44 PM This report has been signed electronically. Number of Addenda: 0 Note Initiated On: 09/06/2024 1:21 PM
--- NOTE | 2024-09-06 14:13 | PCM.POST.ANE ---
Anesthesia: Postop Eval I Current Vital Signs Temperature: 97.1 F Pulse Rate: 88 Blood Pressure: 108/84 Respiratory Rate: 18 Pulse Ox: 99 Oxygen Delivery Method: Room Air Assessment Airway patent: Yes Spontaneous unlabored respirations: Yes Mental status: Asleep nausea: No Vomiting: No Anesthesia Complication: No Fluid Hydration Crystalloid volume administer (ml): 50 Total IV fluid infused: 50 Progress Note Anesthesia document: Postop Eval 1 completed: Yes
--- NOTE | 2024-09-06 14:36 | PCM.POSTANE2 ---
Anesthesia Postop Eval I Sum Postop Eval Completion status Anesthesia document: Postop Eval 1 completed: Yes Anesthesia Postop Eval I Summary Anesthesia Postop Eval I Summary: Anesthesia Postop Eval I: Assessment Summary Airway patent Yes 09/06/24 14:14 [email or web address] Spontaneous unlabored Yes 09/06/24 14:14 [email or web address] respirations Mental status Asleep 09/06/24 14:14 [email or web address] nausea No 09/06/24 14:14 [email or web address] Vomiting No 09/06/24 14:14 [email or web address] Anesthesia Postop Eval I: Fluid Summary Crystalloid volume administer 50 09/06/24 14:14 [email or web address] (ml) Colloids volume administered ( ml) Blood Product volume administered (ml) Total IV fluid infused 50 09/06/24 14:14 [email or web address] Anesthesia Postop Eval I: Summary Notes Anesthesia Complication No 09/06/24 14:14 [email or web address] Anesthesia Complication Comment: Post-operative progress note Anesthesia: Postop Eval II Evaluation Mental status: Awake Pain Level: 0 nausea: No Vomiting: No
[2024-09-06 14:52] LABS: Pathologist Review Reviewed
--- NOTE | 2024-09-06 16:05 | CASEMGMT ---
Social Work- Physician feels pt is ready for discharge today.? PASRR form completed in [facility]. DCA notified of discharge. Disposition:?[facility], skilled level of care under convalescent stay. CESIA Dominguez
--- NOTE | 2024-09-06 16:12 | PCM.DC.SUM ---
Providers Date of Admission: 08/30/24 Date of Discharge: 09/06/24 Primary Care Physician: Dr. Rito Stewart MD Consultations 08/31/24 10:37 Consult: Gastroenterology Routine Consulting Provider: [facility] Reason for Consult: intractable N/V EMERGENT Consult: No MD Notified: Yes Date Notified: 08/31/24 Time Notified: 10:37 Method of Notification: Text Reason For Visit: INTRACTABLE N/V/DIARRHEA Diagnosis Discharge Diagnosis (1) Diverticulitis: Status: Acute Code(s): K57.92 - Diverticulitis of intestine, part unspecified, without perforation or abscess without bleeding Plan 1. Intractable nausea and vomiting-etiology unclear, this has resolved presently, patient will need workup for her rectal bleeding before she goes to the extended care facility #2 chronic diarrhea-probably secondary to lymphocytic colitis and possible irritable bowel syndrome #3 debility-patient will be transferred to an extended care facility when she is medically stable #4 coronary artery disease-continue aspirin, statin, and metoprolol #5 lethargy-this is resolved since her Ativan has been discontinued #6 bright red rectal bleeding-secondary to hemorrhoids #7 hyperkalemia-etiology unclear #8 acute kidney injury #9 hypokalemia #10 acute blood loss anemia not requiring blood transfusion secondary to dilution on a backdrop of acute rectal bleeding Total clinical time spent by myself addressing the patient's medical issues, reviewing all of her data, and collaborating with patient's care team: 35 minutes Medications at Discharge Home Medications carboxymethylcellulose sodium 0.5 % eye drops (Refresh Tears) 1 drp ophthalmic (eye) 4-8XD PRN Dry Eyes 08/31/18 aspirin 81 mg tablet,delayed release (Adult Low Dose Aspirin) 81 mg PO DAILY 01/19/22 potassium chloride 10 mEq capsule,extended release 10 meq PO BID SUPPLEMENT 01/19/22 handicap placcard #1 ea 12/15/22 cholecalciferol (vitamin D3) 25 mcg (1,000 unit) capsule (Vitamin D3) 50 mcg PO DAILY 03/23/23 metoprolol tartrate 25 mg tablet 12.5 mg (1/2 x 25 mg) PO BID #90 tabs 02/02/24 atorvastatin 10 mg tablet (Lipitor) 10 mg PO QHS cholesterol #90 tabs 05/28/24 vibegron 75 mg tablet (Gemtesa) 75 mg PO QDAY 08/07/24 acetaminophen 325 mg tablet 650 mg (2 x 325 mg) PO Q6H PRN PRN Pain 1-10 Or Fever >100.7 #0 tabs 09/04/24 budesonide 3 mg capsule,delayed,extended release 9 mg (3 x 3 mg) PO DAILY #0 ea 09/04/24 enoxaparin 40 mg/0.4 mL subcutaneous syringe 40 mg (0.4 mL) subcut DAILY #0 mL 09/04/24 food supplemt, lactose-reduced (Ensure Compact oral liquid) 118 ml PO TIDCM #0 mL 09/04/24 lvhyjd-vulgeugw-cailztk 24,000-76,000-120,000 unit capsule,delayed rel (Creon) 3 cap PO TIDCM #0 caps 09/04/24 menthol 0.44 %-zinc oxide 20.6 % topical ointment (Calmoseptine) 1 applic topical BID PRN DIAPER RASH #0 grams 09/04/24 nystatin 100,000 unit/gram topical powder (Nyamyc) 1 applic topical BID #0 grams 09/04/24 prednisone 20 mg tablet 40 mg (2 x 20 mg) PO BREAKFAST #0 tabs 09/04/24 prochlorperazine maleate 10 mg tablet (Compazine) 10 mg PO Q6H PRN nausea and vomiting #1 TAB 09/04/24 Hospital Course Operations None Procedures EGD Summary of Care Provided Minutes Spent on Discharge: 33 Hospital Course: This 74-year-old white female was seen and examined in the emergency room at [facility] after presenting with complaints of weakness and difficulty in performing ADLs at home. Patient related to a history of nausea and vomiting for 2 weeks off and on. She also complained of chronic diarrhea which she had been having for approximately 2 years. Patient had been following up with a director of intelligence as an outpatient. Labs obtained in the emergency room showed an elevated white blood cell count at 11.6, potassium was 3.1, and BUN and creatinine were normal. Patient was admitted to [place] [address], she was seen in consultation by gastroenterology, her home medications were continued. Patient was seen by PT and OT, patient's mentation gradually improved and her strength gradually improved but it was recommended that she go to a retirement facility for short-term inpatient rehab services and the patient agreed. She was set to be discharged on 09/04/2024 when she had a bowel movement with blood in it, patient's discharge was canceled and she underwent a colonoscopy the following day which was abnormal for her hemorrhoids only, there is no evidence of colitis or polyps seen and there was no evidence of bleeding seen in the colon. On 09/06/2024, patient was seen and examined: On examination she appeared in good health and spirits, she does not appear to be in any distress. Vital signs as documented. Skin warm and dry and without overt rashes. Neck without JVD, thyroid appears normal, trachea is midline, neck is supple. Lungs clear, normal air movement was noted. Heart exam notable for regular rhythm, normal sounds and absence of murmurs, rubs or gallops. Abdomen unremarkable and without evidence of organomegaly, masses, or abdominal aortic enlargement, bowel sounds are present in all 4 quadrants, no abdominal tenderness was noted. Extremities nonedematous, no cyanosis was noted, no clubbing was noted. Neuro: Cranial nerves II through XII are grossly intact, no focal motor deficits were noted, sensation to light touch and pinprick is intact, motor exam 5/5 throughout. Psych: Patient is alert and oriented x3, she does not appear anxious or depressed, she does not appear agitated. Patient appear to be stable for discharge to a retirement facility for short-term rehab services on 09/06/2024. Weight / BMI Weight Weight: 83.6 kg Body Mass Index (BMI) 31.6 ABG / Lab / Microbiology Data 09/06/24 06:41 09/06/24 06:41 Laboratory: Laboratory Results - last 24 hr 08/31/24 05:35: Stool Calprotectin 45, Stool Pancreat Elastase 537 09/05/24 04:23: Diff Path Review Reviewed 09/05/24 17:20: POC Glucose 382 H 09/05/24 23:43: POC Glucose 258 H 09/06/24 06:16: POC Glucose 148 H 09/06/24 06:41: Hgb 8.4 L, Hct 25.9 L, Sodium 143, Potassium 3.4 L, Chloride 115 H, Carbon Dioxide 24.0, Anion Gap 5, BUN 31 H, Creatinine 0.82, Estim Creat Clear Calc 61.05, Est GFR (MDRD) Af Amer 88, Est GFR (MDRD) Non-Af 72, BUN/Creatinine Ratio 38.0 H, Glucose 177 H, Calcium 8.1 L 09/06/24 11:21: POC Glucose 158 H Microbiology: Microbiology 08/31/24 14:25 Stool Enteric Bacteriology - Final 08/31/24 14:25 Stool Clostridioides difficile (PCR) - Final Meaningful Use Info Meaningful Use Meaningful Use Diagnoses (Choose all that apply): None applicable Ischemic Stroke Statin Dosing Therapy Reference: STATIN DOSE THERAPY REFERENCE: * Patients > 75 years receive moderate or high dose statin therapy. * Patients 75 years or YOUNGER should receive HIGH intensity statin dose unless contraindicated. You will be required to document reason for non-treatment if statin daily dose does not meet guidelines. HIGH DOSE STATIN THERAPY DAILY Atorvastatin > than or = to 40 mg Rosuvastatin > than or = to 20 mg Amlodipine + Atorvastatin > than or = to 2.5/40 mg Ezetimibe + Simvastatin 10/80 mg Simvastatin 80mg Discharge Plan Admission Admit Date/Time: 08/30/24 15:36 Primary Reason for Your Visit: Chronic diarrhea, debility, pancreatic insufficiency, lymphocytic colitis Attending Provider: Clive Arnold Primary Care Provider: Rito Stewart Consulting Providers: Laura Sapp; Chay Wadsworth Instructions Additional Instructions / Restrictions: additional medication: Questran 4 grams QHS; Immodium 2 mg one four times a day Discharge Orders/Prescriptions Prescriptions: New acetaminophen 325 mg Tablet 650 mg PO Q6H PRN PRN (Reason: Pain 1-10 Or Fever >100.7) Qty: 0 0RF prednisone 20 mg Tablet 40 mg PO BREAKFAST Qty: 0 0RF Rx Instructions: Start on 09/05/2024 and administer for 14 days and then stop medication nystatin [Nyamyc] 100,000 unit/gram Powder 1 applic topical BID Qty: 0 0RF Protocol: *Topical Application Instructions APPLICATION INSTRUCTIONS: To affected areas budesonide 3 mg Capsule,Delayed,Extend.Release 9 mg PO DAILY Qty: 0 0RF Ensure Compact Liquid 118 ml PO TIDCM Qty: 0 0RF enoxaparin 40 mg/0.4 mL Syringe 40 mg subcut DAILY Qty: 0 0RF Creon 24,000-76,000 -120,000 unit Capsule,Delayed Release(Dr/Ec) 3 cap PO TIDCM Qty: 0 0RF menthol-zinc oxide [Calmoseptine] 0.44-20.6 % Ointment 1 applic topical BID PRN (Reason: DIAPER RASH) Qty: 0 0RF Protocol: *Topical Application Instructions APPLICATION INSTRUCTIONS: dima rectal area prochlorperazine maleate [Compazine] 10 mg tablet 10 mg PO Q6H PRN (Reason: nausea and vomiting) Qty: 1 0RF Continued Refresh Tears 0.5 % drops 1 drp OPHTHALMIC 4-8XD PRN (Reason: Dry Eyes) (DME) handicap placcard See Rx Instructions .Route .MEDSUPPLY Qty: 1 0RF Rx Instructions: Dx: Debility, Restrictive lung disease exp:5 years Gemtesa 75 mg tablet 75 mg PO QDAY potassium chloride 10 mEq capsule, extended release 10 meq PO BID aspirin [Adult Low Dose Aspirin] 81 mg tablet,delayed release (DR/EC) 81 mg PO DAILY cholecalciferol (vitamin D3) [Vitamin D3] 25 mcg (1,000 unit) Capsule 50 mcg PO DAILY metoprolol tartrate 25 mg tablet 12.5 mg PO BID Qty: 90 3RF atorvastatin [Lipitor] 10 mg tablet 10 mg PO QHS Qty: 90 3RF Discontinued Zenpep 40,000-126,000- 168,000 unit capsule,delayed release(DR/EC) 2 cap PO TID Rx Instructions: administer with meals and/or snacks two capsules with meals; one capsule with snacks cyclosporine 0.05 % drops 1 drp EACH EYE Q12H Referrals / Follow Up: Rito Stewart MD [Primary Care Provider] - Carlin Mock DO [Med Staff - Active Staff] - See Referral Note (in three weeks) Disposition Disposition (needs filled in before D/C Order can be placed): [facility] Facility Charges/Coding Visit Charges Inpatient E&M: 95980 Disch Hosp >30min
--- NOTE | 2024-09-06 16:30 | CASEMGMT ---
Discharge Planning Updated discharge orders, updated signed med list, and transport time sent to [facility]. Physicians will transport patient by cot at 8p. Nursing, SW, pt, and her updated. Evonne Simms DC Planning Asst.
[2024-09-06] MEDS: Insulin Lispro 100 UNIT/ML INSULN.PEN SC (16:48)
[2024-09-06 17:11] LABS: Bedside Glucose 245 mg/dL (74-106)
[2024-09-06] MEDS: Atorvastatin Calcium 10 MG Tablet PO (20:37)
== END 2024-09-06 23:00 | disposition skilled nursing facility (03) | DRG 392 ==
LOC: ED 15:10 → MS3 16:42
PROVIDERS: Internal Medicine; Internal Medicine Gastroenterology; Admitting Provider Internal Medicine; Emergency Provider Emergency Medicine; PCP Family Medicine; Visit Provider Internal Medicine
PROC: 0DJD8ZZ Inspection of Lower Intestinal Tract, Via Natural or Artificial Opening Endoscopic (ICD-10-PCS; CPT 45378; principal; 2024-09-06 12:40)
DX: R11.2 Nausea with vomiting, unspecified (principal); D62 Acute posthemorrhagic anemia; I50.32 Chronic diastolic (congestive) heart failure; M31.30 Wegener's granulomatosis without renal involvement; J70.1 Chronic and other pulmonary manifestations due to radiation; J96.11 Chronic respiratory failure with hypoxia; K86.1 Other chronic pancreatitis; K57.32 Diverticulitis of large intestine without perforation or abscess without bleeding; N17.9 Acute kidney failure, unspecified; I11.0 Hypertensive heart disease with heart failure; I48.0 Paroxysmal atrial fibrillation; K52.832 Lymphocytic colitis; E78.2 Mixed hyperlipidemia; E87.6 Hypokalemia; I25.10 Atherosclerotic heart disease of native coronary artery without angina pectoris; E87.5 Hyperkalemia; I25.2 Old myocardial infarction; K64.9 Unspecified hemorrhoids; E83.52 Hypercalcemia; R53.81 Other malaise; Z80.0 Family history of malignant neoplasm of digestive organs; Z79.82 Long term (current) use of aspirin; Z95.5 Presence of coronary angioplasty implant and graft; Z23 Encounter for immunization; Z85.3 Personal history of malignant neoplasm of breast; Z86.73 Personal history of transient ischemic attack (TIA), and cerebral infarction without residual deficits; Z79.899 Other long term (current) drug therapy; Z90.49 Acquired absence of other specified parts of digestive tract; R79.82 Elevated C-reactive protein (CRP); R53.83 Other fatigue; T45.1X5A Adverse effect of antineoplastic and immunosuppressive drugs, initial encounter
CPT/HCPCS: 36415; 74018; 74177; 80048; 80053; 80307; 81001; 82150; 82653; 82962; 83605; 83690; 83735; 83993; 85014; 85018; 85025; 85610; 85652; 86140; 87493; 87506; 88305; 90662; 93005; 94668; 97110; 97162; 97166; 97530; 97535; 97803; 99285; J7030; J7040; J7120; Q9967; A4216; J0612; J2405

== ENCOUNTER 2024-09-10 00:26 | Emergency (ER) | payer MEDICARE, SELFPAY ==
[2020-12-05 14:34] VITALS: BMI 31.7
[2024-09-10 00:26] VITALS: BP 68/40; PULSE 100; PULSE 101; RESP 26; TEMP 37; O2SAT 81; O2SAT 82; O2SAT 83; BMI 16.3
[2024-09-10 00:40] VITALS: BP 55/35; PULSE 122; RESP 18; O2SAT 92
[2024-09-10 00:53] LABS: Base Excess -25 mmol/L (-2 to +2); Bicarbonate 6.7 mmol/L (22-26); Blood Gas Specimen Type ART; Mode Not entered; O2 Delivery Device NRB; PO2 149 mmHG (75-100); SITE R Fem; SO2 98 % (95-99); Total Carbon Dioxide 8 mmol/L; pCO2 28.1 mmHg (35-45); pH 6.98 (7.35-7.45)
--- OUTSIDE RECORDS SUMMARY | 2024-09-10 00:53 | XMS RPT_ITS | CCD ---
Author Organization [facility] CliniSywy Care Team Providers Care Sergeant At Arms Name Role Phone HORN, VICENTE DPM Unavailable [...] Unavailable Unavailable PROVIDER, UNKNOWN Unavailable Unavailable Mynor RN, Taylor Doe Unavailable Lala Chauhan Unavailable Unavailable Lala Chauhan Unavailable Unavailable Magda, Adarsh S Unavailable Radha Jackson MD Unavailable Kaden, Eugene Chi Primary Care Provider Radha Murphy Unavailable Amor Stapleton MD Unavailable Magda, Adarsh S Unavailable Radha Jackson MD Unavailable Kaden, Eugene Chi Primary Care Provider Radha Murphy Unavailable Amor Stapleton MD Unavailable Magda, Adarsh S Unavailable Kaden, Eugene Chi Primary Care Provider [phone] Magda, [place] S Unavailable Radha Jackson MD Unavailable Kaden, Eugene [facility] Primary Care Provider Radha Murphy Unavailable Eliceo Escobar MD, Amor Unavailable Vicente Mojica Attending Unavailable Nayla, Dr. Dimple Loya Primary Care Unavailab le Nayla, Dr. Dimple Loya Referring Unavailab le Nayla, Dr. Dimple Loya Primary Care Unavailab le Vicente Mojica Attending Unavailable Vicente Mojica Attending Unavailable Nayla, Dr. Dimple Loya Primary Care Unavailab le Magda, [place] S Unavailable Jose Stewart MD Primary Care Provider Magda, Adarsh S Unavailable Radha Jackson MD Unavailable Eliceo Escobar MD, Amor Unavailable Magda JACINTO, [place] S Unavailable Kaden, Eugene [facility] Primary Care Provider Jose Stewart MD Primary Care Provider JOSE STEWART Referring Unavailab JOSE Nava Primary Care Unavailab JOSE Nava Primary Care Unavailab le F[place] FORTE, AMOR Referring Unavailab JOSE Nava Primary Care Unavailab JOSE Nava Attending Unavailab JOSE Nava Primary Care Unavailab JOSE Nava Referring Unavailab JOSE Nava Primary Care Unavailab JOSE Nava Referring Unavailab le [place] FORTE, AMOR Referring Unavailab le JSOE STEWART Primary Care Unavailab le [place] FORTE, AMOR Referring Unavailab JOSE Nava Primary Care Unavailab JOSE Nava Attending Unavailab JOSE Nava Primary Care Unavailab le JOSE STEWART Primary Care Unavailab JOSE Nava Attending Unavailab JOSE Nava Primary Care Unavailab le [place] FORTE, AMOR Referring Unavailab le FENTON OBED, AMOR Referring Unavailab JOSE Nava Primary Care Unavailab le [place] FORTE, AMOR Referring Unavailab JOSE Nava Primary Care Unavailab le [place] FORTE, AMOR Attending Unavailab JOSE Nava Primary Care Unavailab JOSE Nava Primary Care Unavailab JOSE Nava Referring Unavailab JOSE Nava Primary Care Unavailab le [place] FORTE, AMOR Attending Unavailab le SELF Referring Unavailable JOSE STEWART Attending Unavailab JOSE Nava Primary Care Unavailab le [place] FORTE, AMOR Referring Unavailab JOSE Nava Primary Care Unavailab le Medications Current Medications Medication Drug Class(es) Dates Sig (Normalized) Sig (Original) atorvastatin 10 mg oral tablet (20 sources) HMG-CoA Reductase Inhibitor Start: 09-16-2009 atorvastatin calcium(LIPITOR 10 MG TAB) Take one(1) tablet daily. 0 09/16/2009 Active Comment on above: Take one(1) tablet d aily. benoxinate hydrochloride 4 mg/ml / fluorescein sodium 2.5 mg/ml ophthalmic solution (1 source) Diagnostic Dye Start: 12-06-2022 End: 12-07-2022 fluorescein-benox inate 0.25-0.4 % 1 Drop (FLURESS) budesonide 3 mg delayed release oral capsule (20 sources) Corticosteroid Start: 11-12-2022 take 1 capsule by mouth every twenty-four hours in the morning budesonide, enteric coated (ENTOCORT EC) 3 mg 24 hr capsule TAKE 3 CAPSULES BY MOUTH IN THE MORNING FOR MICROSCOPIC COLITIS 11/12/2022 Active Comment on above: TAKE 3 CAPSULES BY M OUTH IN THE MORNING FOR MICROSCOPIC COLITIS cholecalciferol 0.05 mg oral capsule (20 sources) Vitamin D Start: 11-07-2017 take 1 capsule by mouth twice daily Cholecalciferol, Vitamin D3, 50 mcg (2,000 unit) cap Take 2,000 Units by mouth two times a day. 11/07/2017 Active Comment on above: Take by mouth. cycloSPORINE (RESTASIS) 0.05 % ophthalmic emulsion (4 sources) take 1 drop(s) into the eye(s) twice daily cycloSPORINE (RESTASIS) 0.05 % ophthalmic emulsion Use 1 Drop in both eyes two times a day. Active hypromellose 0.003 mg/mg ophthalmic gel (20 sources) Start: 12-06-2022 Artificial Tear, Hypromellose, (GENTEAL TEARS SEVERE GEL) 0.3 % gel Use 1 Drop in both eyes daily at bedtime. 10 g 5 12/06/2022 Active Comment on above: Use 1 Drop in both e yes daily at bedtime. lipase/protease/amyla se (ZENPEP ORAL) (12 sources) take 2 capsules by mouth at mealtime lipase/protease/a mylase (ZENPEP ORAL) Take 2 capsules by mouth with meals. Active take 2 capsules by m outh at mealtime lipase/protease/amylase (ZENPEP ORAL) Ta ke 2 capsules by mouth with meals. 0 Active lipase/protease/ amylase (ZENPEP ORAL) Take by mouth two times a day. Patient currently using sample pack and finding it effective for her chronic diarrhea 0 Active metoprolol tartrate 25 mg oral tablet (20 sources) beta-Adrenergic Rogelio Start: 11-27-2020 metopr olol tartrate, short acting, (LOPRESSOR) 25 mg tablet Take 12.5 mg by mouth twice daily. 11/27/2020 Active Start: 10-27-2016 take 1 tablet by checo th once daily METOPROLOL SUCCINATE ER 25 MG [id number] One tablet by mouth daily METOPROLOL SUCCINATE [id number] Adarsh Man MD Start: 10-27-2016 take 1 tablet by checo th once daily METOPROLOL SUCCINATE ER 50 MG [id number] One tablet by mouth daily METOPROLOL SUCCINATE [id number] MICHELE NessC Comment on above: Take 12.5 mg by mout h twice daily. OXYGEN, HOME THERAPY, (19 sources) Start: 05-31-2023 OXYGEN, HOME THERAPY, Inhale 2 L/min as instructed as directed. 05/31/2023 Active Start: 05-31-2023 OXYGEN, HOME T HERAPY, Inhale 2 L/min as instructed as directed. 0 05/31/2023 Active Comment on above: Inhale 2 L/min as in structed as directed. phenylephrine hydrochloride 25 mg/ml ophthalmic solution (1 source) alpha-1 Adrenergic Agonist Start: 3 End: 3 PHENYLephrine 2.5 % 1 Drop (AK-DILATE, SHREYA-SYNEPHRINE) potassium chloride 10 meq extended release oral tablet (20 sources) Start: 4 End: take 1 tablet by mouth twice daily potassium chloride (K-TAB) 10 mEq tablet Indications: Hypokalemia Take 1 tablet by mouth two times a day. Patient reports 10 MEQ BID as of 06/26/24 180 tablet 1 06/26/2024 12/23/2024 Active Start: 03-06-2024 End: 09-02-2024 take 2 tablets by mouth twice daily potassium chloride (K-TAB) 10 mEq tablet Indications: Hypokalemia Take 2 tablets by mouth two times a day. 360 tablet 1 03/06/2024 06/26/2024 Discontinued End: 03-06-2024 take 1 tablet by mouth twice daily potassium chloride (K-TAB) 10 mEq tablet Take 10 mEq by mouth twice daily. 0 03/06/2024 Discontinued Comment on above: Take 10 mEq by mouth twice daily. proparacaine hydrochloride 5 mg/ml ophthalmic solution (1 source) Local Anesthetic Start: 12-06-2022 End: 12-07-2022 proparacaine 0.5 % 1 Drop (ALCAINE) propylene glycol 6 mg/ml ophthalmic solution (20 sources) Start: 12-06-2022 propylene glycoL (SYSTANE COMPLETE) 0.6 % drop Use 1 Drop in both eyes three times daily. 20 mL 5 12/06/2022 Active Start: 12-06-2022 propylene glyc oL (SYSTANE COMPLETE) 0.6 % drop Use 1 Drop in both eyes three times daily. 20 mL 5 12/06/2022 Active End: 05-31-2023 take 1 drop(s) into the eye(s) four times daily propylene glycoL 0.6 % drop Use 1 Drop in both eyes four times daily. 0 05/31/2023 Discontinued (Duplicate Entry) take 1 drop(s) into the eye(s) four times daily propylene glycoL 0.6 % drop Use 1 Drop in both eyes four times daily. 0 Active Comment on above: Use 1 Drop in both e yes four times daily. Use 1 Drop in both e yes three times daily. tropicamide 10 mg/ml ophthalmic solution (1 source) Anticholinergic Start: 12-06-19 End: 12-07-19 tropicamide 1 % 1 Drop (MYDRIACYL) vibegron (GEMTESA) 75 mg tablet (4 sources) take 1 tablet by mouth once daily vibegron (GEMTESA) 75 mg tablet Take 75 mg by mouth once daily. Active Completed/Discontinued Medications Medication Drug Class(es) Dates Sig (Normalized) Sig (Original) acetaminophen 500 mg oral tablet (20 sources) Start: 04-13-2024 End: 04-13-2024 acetaminophen 1,000 mg tab(s) (TYLENOL) Start: 04-01-2022 End: 04-04-2022 acetaminophen 650 mg tab(s) (TYLENOL) Start: 09-16-2009 acetaminophen( TYLENOL 325 MG TAB) Take two(2) tablets every four(4) to six(6) hours as needed for pain. 0 09/16/2009 Active Comment on above: Take two(2) tablets every four(4) to six(6) hours as needed for pain. [id number] 200 actuat albuterol 0.09 mg/actuat metered dose inhaler (20 sources) beta2-Adrenergic Agonist Start: 07-07-2021 End: 05-31-2023 albuterol HFA (PROVENTIL HFA, VENTOLIN HFA) 90 mcg/actuation inhaler INHALE 2 PUFFS 6 (SIX) TIMES DAILY NEEDED FOR SHORTNESS OF BREATH / COUGH 0 07/07/2021 05/31/2023 Discontinued (Course of therapy completed) Comment on above: INHALE 2 PUFFS 6 (SI X) TIMES DAILY NEEDED FOR SHORTNESS OF BREATH / COUGH apixaban 5 mg oral tablet (20 sources) Factor Xa Inhibitor Start: 02-22-2022 End: 05-31-2023 take 1 tablet by mouth twice daily ELIQUIS 5 mg tab(s) Take 5 mg by mouth twice daily. 0 02/22/2022 05/31/2023 Discontinued (Course of therapy completed) Start: 10-27-2016 End: 11-30-2016 take 1 tablet by mouth twice daily ELIQUIS 5 MG TABS One tablet by mouth twice daily APIXABAN [id number] Adarsh Man MD Comment on above: Take 5 mg by mouth t wice daily. aspirin 81 mg delayed release oral tablet (20 sources) Platelet Aggregation Inhibitor, Nonsteroidal Anti-inflammatory Drug Star t: 05-08 17 take 1 tablet by mouth once daily ASPIRIN EC LOW DOSE 81 MG TBEC One tablet by mouth daily ASPIRIN [id number] Taylor Meza PA-C Comment on above: Take 81 mg by mouth once daily. carboxymethylcellulose sodium 5 mg/ml ophthalmic solution (18 sources) Star t: 08-08 End: 11-09 carboxymethylcellulose (REFRESH) 0.5 % drop Use in eyes. 0 08/31/2018 12/06/2022 Discontinued (Changing Therapy/Dosage Form) Comment on above: Use in eyes. cilgavimab 300 mg intramuscular injection (EVUSHELD) (2 sources) Star t: 03-08 End: 03-08 cilgavimab 300 mg intramuscular injection (EVUSHELD) ciprofloxacin 500 mg oral tablet (4 sources) Quinolone Antimicrobial Star t: 01-06 End: 02-06 take 1 tablet by mouth twice daily ciprofloxacin HCl (CIPRO) 500 mg tablet Take 500 mg by mouth twice daily. 0 01/28/2022 02/25/2022 Discontinued Comment on above: Take 500 mg by mouth twice daily. clopidogrel 75 mg oral tablet (6 sources) P2Y12 Platelet Inhibitor Star t: 03-26 End: 02-06 take 1 tablet by mouth once daily clopidogrel (PLAVIX) 75 mg tablet Take 75 mg by mouth once daily. 0 02/09/2021 02/25/2022 Discontinued Comment on above: Take 75 mg by mouth once daily. colestipol hydrochloride 1000 mg oral tablet (7 sources) Bile Acid Sequestrant End: 05-08 take 1 tablet by mouth twice daily colestipol (COLESTID) 1 gram tablet Take 1 g by mouth twice daily. 0 05/31/2023 Discontinued (Course of therapy completed) Comment on above: Take 1 g by mouth tw ice daily. cycloSPORINE 0.5 mg/ml ophthalmic suspension (3 sources) Calcineurin Inhibitor Immunosuppressant take 2 drop(s) into the eye(s) once daily RESTASIS 0.05 % EMUL 2 drops each eye daily CYCLOSPORINE [id number] Carrol Lynn MYKEL diphenhydrAMINE hydrochloride 25 mg oral capsule (11 sources) Histamine-1 Receptor Antagonist Star t: 05-26 End: 05-26 diphenhydrAMINE 50 mg capsule (BENADRYL) Start: 04-01-2022 End: 04-04-2022 diphenhydrAMINE 50 mg (BENAD RYL) Start: 04-01-2022 End: 04-04-2022 diphenhydrAMINE 50 mg inject ion (BENADRYL) Start: 07-06-2011 End: 12-05-2014 take 1 tablet by mouth at bedtime BENADRYL 25 MG TABS One tablet by mouth at bedtime. DIPHENHYDRAMINE HCL [id number] Jane Christina 1 ml EPINEPHrine 1 mg/ml injection (2 sources) alpha-Adrenergic Agonist, beta-Adrenergic Agonist, Catecholamine Start: 04-01-2022 End: 04-04-2022 EPINEPHrine 1 mg/mL (1 mL) 0.3 mg injection ergocalciferol 81739 unt oral tablet (6 sources) Provitamin D2 Compound Start: 07-06-2011 End: 12-05-2014 take 1 tablet by mouth every week VITAMIN D (ERGOCALCIFEROL) 77399 UNIT CAPS 1 tablet by mouth every week on Sundays ERGOCALCIFEROL [id number] Kiel Hopkins fidaxomicin 200 mg oral tablet (10 sources) Macrolide Antibacterial End: 04-01-2022 take 1 tablet by mouth twice daily fidaxomicin (DIFICID) 200 mg tablet Take 200 mg by mouth twice daily. 0 04/01/2022 Discontinued Comment on above: Take 200 mg by mouth twice daily. FLUoxetine 40 mg oral capsule (20 sources) Serotonin Reuptake Inhibitor Start: 02-22-2022 End: 05-31-2023 take 1 capsule by mouth once daily FLUoxetine (PROZAC) 40 mg capsule Take 40 mg by mouth once daily. 0 02/22/2022 05/31/2023 Discontinued (Course of therapy completed) Comment on above: Take 40 mg by mouth once daily. hydrocortisone 100 mg injection (2 sources) Corticosteroid Start: 04-01-2022 End: 04-04-2022 hydrocortisone sodium succinate (PF) 100 mg injection (Solu-CORTEF) ibandronic acid 150 mg oral tablet (2 sources) Bisphosphonate Start: 05-30-2017 take 1 tablet by mouth once daily BONIVA 150 MG TABS One tablet by mouth daily IBANDRONATE SODIUM [id number] Taylor Meza PA-C loratadine 10 mg oral tablet (6 sources) Start: 07-06-2011 End: 12-05-2014 take 1 tablet by mouth once daily LORATADINE 10 MG TABS One tablet by mouth daily LORATADINE [id number] Jane Christina methylPREDNISolone 125 mg injection (1 source) Corticosteroid Start: 04-13-2024 End: 04-13-2024 methylPREDNISolone sod succinate(PF) 125 mg injection (SOLU-Medrol) mineral oil 0.425 mg/mg / petrolatum 0.568 mg/mg ophthalmic ointment (3 sources) REFRESH LACRI-KINGS BE OINT Apply to each eye 4 times daily ARTIFICIAL TEAR OINTMENT [id number] Carrol Lynn LPN MULTIPLE VITAMIN (3 sources) Start: 07-06-2011 take 1 tablet by mouth once daily MULTIVITAMINS TABS One tablet by mouth daily MULTIPLE VITAMIN [id number] Jane Christina naproxen sodium 220 mg oral tablet (3 sources) Nonsteroidal Anti-inflammatory Drug take 1 tablet by mouth every twelve hours as needed ALEVE 220 MG TABS One tablet by mouth every 12 hours as needed NAPROXEN SODIUM [id number] Kiel Hopkins ondansetron 4 mg disintegrating oral tablet (4 sources) Serotonin-3 Receptor Antagonist Start: 04-01-2022 End: 04-04-2022 ondansetron orally disintegrating 4 mg tab(s) (ZOFRAN ODT) Start: 04-01-2022 End: 04-04-2022 ondansetron (PF) 4 mg inject ion (ZOFRAN) polysaccharide iron complex 150 mg oral capsule (6 sources) Start: 06-12-2021 End: 02-25-2022 take 1 capsule by mouth once daily POLY-IRON 150 mg iron capsule Take 150 mg by mouth once daily. 0 06/12/2021 02/25/2022 Discontinued Comment on above: Take 150 mg by mouth once daily. predniSONE 2.5 mg oral tablet (18 sources) Start: 10-12-2021 End: 02-25-2022 take 1 tablet by mouth once daily predniSONE (DELTASONE) 2.5 mg tablet Take 1 tablet by mouth once daily. 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 250 tablet 0 09/11/2021 02/25/2022 Discontinued Start: 07-29-2021 End: 02-25-2022 take 2 tablets by mouth once daily predniSONE (DELTASONE) 10 mg tablet Take 2 tablets by mouth once daily. 60 tablet 3 07/29/2021 02/25/2022 Discontinued Comment on above: Take 3 tablets by [facility] once daily for 14 days, THEN 2 tablets once daily for 14 days, THEN 1 tablet once daily. Take 2 tablets by mo [facility] once daily. Take 1 tablet by [facility] once daily. prochlorperazine 5 mg/ml injectable solution (2 sources) Phenothiazine Start: 022 End: prochlorperazine 5 mg injection (COMPAZINE) risedronate sodium 150 mg oral tablet (11 sources) Start: 011 End: take 1 tablet by mouth every month ACTONEL 150 MG TABS 1 tablet by mouth once a month RISEDRONATE SODIUM [id number] Carrol Lynn [employer] riTUXimab 500 mg in NaCl 0.9% 325 mL (RITUXAN) (1 source) Start: 024 End: riTUXimab 500 mg in NaCl 0.9% 325 mL (RITUXAN) THERAPEUTIC MULTIVITAMIN TAB (6 sources) Start: 006 End: THERAPEUTIC MULTIVITAMIN TAB Take one(1) tablet daily. 0 07/22/2006 02/25/2022 Discontinued Start: 07-22-2006 THERAPEUTIC MU LTIVITAMIN TAB Take one(1) tablet daily. 0 07/22/2006 Active Comment on above: Take one(1) tablet d aily. tixagevimab 300 mg intramuscular injection (EVUSHELD) (2 sources) Start: 04-01-20 End: 04-01-20 tixagevimab 300 mg intramuscular injection (EVUSHELD) tolterodine tartrate 1 mg oral tablet (1 source) Cholinergic Muscarinic Antagonist Start: 12-01-19 End: 01-19-20 take 1 tablet by mouth twice daily tolterodine (DETROL) 1 mg tablet Indications: OAB (overactive bladder) Take 1 tablet by mouth two times a day. 60 tablet 2 12/01/2023 01/19/2024 Discontinued Comment on above: Take 1 tablet by checo th two times a day. Problems Active Problems Problem Classification Problem Date Documented Date Episodic/Chronic Bacterial infection; unspecified site (1 source) Recurrent Clostridium difficile infection; Translations: [Other bacterial infections of unspecified site] Episodic Cataract (20 sources) Bilateral pseudophakia; Translations: [Presence of intraocular lens] Onset: 4 Resolved: 6 08-31-2017 Chronic Coronary atherosclerosis and other heart disease (20 sources) Coronary atherosclerosis; Translations: [Atherosclerotic heart disease of [place] coronary artery without angina pectoris] Onset: 1 08-21-2021 Chronic Diseases of white blood cells (2 sources) Leukocytosis; Translations: [Elevated white blood cell count, unspecified] Onset: 4 04-23-2024 Chronic Disorders of lipid metabolism (20 sources) Hyperlipidemia; Translations: [Hyperlipidemia, unspecified] Onset: 4 10-28-2016 Chronic Diverticulosis and diverticulitis (1 source) Diverticulitis; Translations: [Diverticulitis of intestine, part unspecified, without perforation or abscess without bleeding] Chronic Esophageal disorders (17 sources) Gastroesophageal reflux disease; Translations: [Gastro-esophageal reflux disease without esophagitis] Onset: 4 12-01-2023 Chronic Essential hypertension (20 sources) Hypertensive disorder; Translations: [Essential hypertension] Onset: 6 10-28-2016 Chronic Fluid and electrolyte disorders (3 sources) Hypokalemia; Translations: [Hypokalemia] Onset: 4 03-06-2024 Episodic Heart valve disorders (20 sources) Non-rheumatic mitral regurgitation ; Translations: [Nonrheumatic mitral (valve) insufficiency] Onset: 9 03-14-2019 Chronic Inflammation; infection of eye (except that caused by tuberculosis or sexually transmitteddisease) (20 sources) Bilateral punctate keratitis of eyes; Translations: [Punctate keratitis, bilateral] Onset: 7 08-31-2017 Chronic Intestinal infection (1 source) Clostridium difficile colitis; Translations: [Enterocolitis due to Clostridium difficile, not specified as recurrent] Episodic Osteoporosis (17 sources) Osteoporosis; Translations: [Age-related osteoporosis without current pathological fracture] Onset: 4 12-01-2023 Chronic Other aftercare (20 sources) Long-term current use of anticoagulant; Translations: [correction (current) use of anticoagulants] 05-15-2019 Episodic Other circulatory disease (1 source) Personal history of other diseases of the circulatory system; Translations: [S/P ablation of atrial fibrillation] Onset: 4 Episodic Other diseases of bladder and urethra (1 source) Overactive bladder; Translations: [Overactive bladder] 06-29-2024 Chronic Other diseases of bladder and urethra (1 source) Overactive bladder; Translations: [OAB (overactive bladder)] Onset: 4 Chronic Other ear and sense organ disorders (1 source) Sensorineural hearing loss, bilateral; Translations: [Sensorineural hearing loss, bilateral] Chronic Other eye disorders (20 sources) Bilateral vitreous floaters; Translations: [Other vitreous opacities, bilateral] Onset: 6 08-26-2016 Chronic Other lower respiratory disease (1 source) Interstitial lung disease; Translations: [Interstitial pulmonary disease, unspecified] 03-14-2023 Chronic Other lower respiratory disease (17 sources) Fibrosis of lung; Translations: [Pulmonary fibrosis, unspecified] Onset: 4 12-01-2023 Chronic Other lower respiratory disease (1 source) Pulmonary fibrosis, unspecified; Translations: [Pulmonary fibrosis (HCC)] Onset: 4 Chronic Other lower respiratory disease (2 sources) Expiratory wheezing; Translations: [Wheezing] Episodic Other nutritional; endocrine; and metabolic disorders (3 sources) Body mass index (BMI) 35.0-35.9, adult; Translations: [Body mass index (BMI) 35.0-35.9, adult] Onset: 6 10-28-2016 Chronic Other nutritional; endocrine; and metabolic disorders (20 sources) Obese class I; Translations: [Obesity, unspecified] Onset: 9 03-19-2019 Chronic Other nutritional; endocrine; and metabolic disorders (1 source) Weight gain; Translations: [Abnormal weight gain] 06-26-2024 Episodic Other nutritional; endocrine; and metabolic disorders (1 source) Abnormal weight gain; Translations: [Weight gain] Onset: 4 Episodic Other screening for suspected conditions (not mental disorders or infectious disease) (20 sources) Electrocardiogram abnormal; Translations: [Patient encounter status] Onset: 1 Resolved: 6 07-06-2011 Episodic Other upper respiratory disease (1 source) Paralysis of vocal cords and larynx, bilateral; Translations: [Paralysis of vocal cords and larynx, bilateral] Onset: 3 Chronic Other upper respiratory disease (1 source) Other diseases of vocal cords; Translations: [Other diseases of vocal cords] Onset: 3 Episodic Other upper respiratory disease (1 source) Dysphonia; Translations: [Dysphonia] Onset: 3 Episodic Peripheral and visceral atherosclerosis (1 source) Peripheral vascular disease, unspecified; Translations: [PAD (peripheral artery disease) (HCC)] Onset: 4 Chronic Residual codes; unclassified (20 sources) Other [...] present; Translations: [Asymptomatic menopausal state] 06-28-2023 Episodic Residual codes; unclassified (1 source) H/O: atrial fibrillation; Translations: [Other specified postprocedural states] 06-29-2024 Episodic Residual codes; unclassified (1 source) Other specified postprocedural states; Translations: [S/P ablation of atrial fibrillation] Onset: 4 Episodic Systemic lupus erythematosus and connective tissue disorders (20 sources) Granulomatosis with polyangiitis; Translations: [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ent] Onset: 1 08-21-2021 Chronic Transient cerebral ischemia (4 sources) Transient global amnesia; Translations: [Transient global amnesia] Onset: 4 03-06-2024 Chronic Unclassified (3 sources) Long-term drug therapy; Translations: [Other terminal superintendent (current) drug therapy] Onset: 6 10-28-2016 Past or Other Problems Problem Classification Problem Date Documented Da te Episodic/Chronic Abdominal hernia (20 sources) Diaphragmatic hernia; Translations: [Diaphragmatic hernia without obstruction or gangrene] Onset: 08-30-2006 08-30-2006 Episodic Cancer of breast (18 sources) Malignant neoplasm of unspecified site of unspecified female breast; Translations: [Primary malignant neoplasm of breast] Onset: 02-09-2008 Resolved: 10-27-2015 12-02-2014 Chronic Cancer of breast (20 sources) History of malignant neoplasm of breast; Translations: [Personal history of malignant neoplasm of breast] Onset: 01-24-2017 01-24-2017 Episodic Cardiac dysrhythmias (20 sources) Paroxysmal atrial fibrillation; Translations: [Atrial fibrillation] Onset: 07-06-2011 Resolved: 05-31-2023 10-28-2016 Chronic Cardiac dysrhythmias (20 sources) Palpitations; Translations: [Palpitations] Onset: 03-14-2019 05-15-2019 Episodic Diabetes mellitus without complication (1 source) Prediabetes; Translations: [Prediabetes] Onset: 12-01-2023 Episodic Gastritis and duodenitis (15 sources) Acute gastritis; Translations: [Acute gastritis without bleeding] Onset: 08-30-2006 Resolved: 05-15-2019 05-15-2019 Episodic Malaise and fatigue (3 sources) Fatigue; Translations: [Other fatigue] Onset: 10-27-2016 10-27-2016 Episodic Nonspecific chest pain (12 sources) Chest pain, unspecified; Translations: [Chest discomfort] Onset: 07-06-2011 Resolved: 10-28-2016 07-06-2011 Episodic Other and unspecified benign neoplasm (20 sources) History of polyp of colon; Translations: [Personal history of colonic polyps] Onset: 07-24-2018 07-24-2018 Episodic Other and unspecified benign neoplasm (16 sources) Benign neoplasm of colon; Translations: [Benign neoplasm of colon, unspecified] Onset: 12-01-2023 12-01-2023 Episodic Other and unspecified benign neoplasm (1 source) Benign neoplasm of colon, unspecified; Translations: [Benign neoplasm of colon, unspecified part of colon] Onset: 12-01-2023 Episodic Other eye disorders (15 sources) Vitreous opacities; Translations: [Other vitreous opacities, unspecified eye] Onset: 08-28-2014 Resolved: 08-26-2016 08-26-2016 Chronic Other eye disorders (15 sources) Vitreous floaters; Translations: [Other vitreous opacities, unspecified eye] Onset: 08-22-2015 Resolved: 08-26-2016 08-26-2016 Chronic Other eye disorders (20 sources) Tear film insufficiency; Translations: [Dry eye syndrome of bilateral lacrimal glands] Onset: 08-28-2014 Resolved: 08-26-2016 09-01-2018 Episodic Other gastrointestinal disorders (20 sources) History of bariatric surgical procedure; Translations: [Bariatric surgery status] Onset: 08-20-2021 08-20-2021 Episodic Other lower respiratory disease (20 sources) Dyspnea; Translations: [Shortness of breath] Onset: 10-27-2016 10-28-2016 Episodic Residual codes; unclassified (15 sources) Obstructive sleep apnea syndrome; Translations: [Obstructive sleep apnea (adult) (pediatric)] Onset: 08-30-2018 Resolved: 08-20-2021 08-20-2021 Chronic Residual codes; unclassified (20 sources) Family history of cancer of colon; Translations: [Family history of malignant neoplasm of digestive organs] Onset: 07-24-2018 12-05-2014 Episodic Residual codes; unclassified (3 sources) Family history of malignant neoplasm of breast; Translations: [Family history of malignant neoplasm of breast] 12-05-2014 Episodic Residual codes; unclassified (3 sources) FH: Diabetes mellitus; Translations: [Family history of diabetes mellitus] 12-05-2014 Episodic Skin and subcutaneous tissue infections (2 sources) Cellulitis of right upper limb; Translations: [Cellulitis of right upper limb] Onset: 04-23-2024 04-23-2024 Episodic Results Test Name Value Interpretation Reference Range Facility [facility] 09-06-2024 CNPN Telephone (RHEUMN) -------- KAREN FALK ([id number]) 1950 [facility] Date Time Provider Department 09/06/24 AMOR STAPLETON During your visit today, we recorded the following information about you: Maria Eugenia Bowman Ma 09/06/2024 9:05 AM Signed Patients called. She has been admitted to the hospital (in [place]) for 10 days so far for diarrhea. They will be doing a colonoscopy today (09/06/24). She is scheduled for the Rituximab infusion for 09/28/24. They are wondering if the patient should still receive this since she is hospitalized right now. Please call back [phone] (cell). Allergies As of Date: 09/06/2024 (No Known Allergies) Date Reviewed: 07/18/2024 Reviewed by: Vicente Reza MA - Fully Assessed Reason for Visit: Patient Update [3894] Patient Question [5037] Prescriptions as of 09/07/2024 - vibegron (GEMTESA) 75 mg tablet Take 75 mg by mouth once daily. - cycloSPORINE (RESTASIS) 0.05 % ophthalmic emulsion Use 1 Drop in both eyes two times a day. - potassium chloride (K-TAB) 10 mEq tablet Take 1 tablet by mouth two times a day. Patient reports 10 MEQ BID as of 06/26/24 - lipase/protease/amylase (ZENPEP ORAL) Take 2 capsules by mouth with meals. - OXYGEN, HOME THERAPY, Inhale 2 L/min as instructed as directed. 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 - Artificial Tear, Hypromellose, (GENTEAL TEARS SEVERE GEL) 0.3 % gel Use 1 Drop in both eyes daily at bedtime. - aspirin, enteric coated (ASPIRIN, ENTERIC COATED) 81 mg EC tablet Take 81 mg by mouth once daily. - Cholecalciferol, Vitamin D3, 50 mcg (2,000 unit) cap Take 2,000 Units by mouth two times a day. - metoprolol tartrate, short acting, (LOPRESSOR) 25 mg tablet Take 12.5 mg by mouth twice daily. - atorvastatin calcium(LIPITOR 10 MG TAB) Take one(1) tablet daily. - acetaminophen(TYLENOL 325 MG TAB) Take two(2) tablets every four(4) to six(6) hours as needed for pain. Problem List As Of Date 09/06/2024 Noted Resolved Acute gastritis without mention of hemorrhage [*08/30/2006 05/15/2019 DIAPHRAGMATIC HERNIA [K44.9] 08/30/2006 Breast cancer, stage 4 (HCC) [C50.919] 09/16/2009 10/27/2015 Tear film insufficiency, unspecified - Both Eye*08/28/2014 08/26/2016 Lens replaced by other means - Both Eyes [Z96.1]08/28/2014 08/26/2016 Other vitreous opacities - Both Eyes [H43.399] 08/28/2014 08/26/2016 Hyperlipidemia [E78.5] 08/28/2014 Floater, vitreous [H43.399] 08/22/2015 08/26/2016 Dry eye syndrome [H04.129] 08/22/2015 08/26/2016 Pseudophakia of both eyes [Z96.1] 08/22/2015 Colon cancer screening [Z12.11] 09/11/2015 09/11/2015 Vitreous floaters of both eyes [H43.393] 08/26/2016 Dry eye syndrome of both eyes [H04.123] 08/26/2016 Personal history of breast cancer [Z85.3] 01/24/2017 Punctate keratitis, 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] 08/31/2017 History of colonic polyps [Z86.0100] 07/24/2018 Family history of colon cancer in father [Z80.0]07/24/2018 Obstructive sleep apnea [G47.33] 08/30/2018 08/20/2021 Shortness of breath [R06.02] 10/27/2016 Paroxysmal atrial fibrillation (HCC) [I48.0] 03/14/2019 05/15/2019 Palpitations [R00.2] 03/14/2019 Nonrheumatic mitral (valve) insufficiency [I34.*03/14/2019 Nonrheumatic tricuspid (valve) insufficiency [I*03/14/2019 Obesity, Class I, BMI 30-34.9 [E66.811] 03/19/2019 At risk for stroke [Z91.89] Anticoagulant long-term use [Z79.01] Persistent atrial fibrillation (HCC) [I48.19] 05/15/2019 05/31/2023 Status post catheter ablation of atrial fibrill* 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*07/22/2021 Coronary artery disease involving [place]*08/20/2021 Essential hypertension [I10] 10/27/2016 History of appendectomy [Z90.49] 08/20/2021 History of bariatric surgery [Z98.84] 08/20/2021 History of cataract extraction [Z98.49] 08/20/2021 History of tonsillectomy [Z90.89] 08/20/2021 Benign neoplasm of colon [D12.6] 12/01/2023 Esophageal reflux [K21.9] 12/01/2023 Pulmonary fibrosis (HCC) [J84.10] 12/01/2023 Osteoporosis, unspecified [M81.0] 12/01/2023 Encounter Status:Closed by MARIA EUGENIA BOWMAN MA on 09/06/24 [facility] CNOVon 07-18-2024 CNOV Office Visit (RHEUMN ) -------- KAREN FALK ([id number]) 1950 F [facility] Date Time Provider Department 07/18/24 11:00 AM AMOR STAPLETON RHEUMN During your visit today, we recorded the following information about you: Temperature Pulse Blood pressure 96.9 degrees 89/minute 111/72 Amor Stapleton MD 08/08/2024 8:57 AM Signed Karen Falk is a 74 year old female here for follow-up of 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 Status Post Catheter Ablation of Atrial Fibrillation Comment: balloon catheter cryoablation atrial fibrillation PVAI 05/15/2019 Obesity, Class I, Bmi 30-34.9 - 03/19/2019 At Risk for Stroke Comment: [id number] = 3 (HTN, age, female gender) Anticoagulant Long-Term Use Comment: apixaban (Eliquis); indication: stroke prevention AF Palpitations - 03/14/2019 Nonrheumatic Mitral (Valve) Insufficiency - 03/14/2019 Nonrheumatic Tricuspid (Valve) Insufficiency - 03/14/2019 History of Colonic Polyps - 07/24/2018 Comment: Added automatically from request for surgery [id number] Family History of Colon Cancer in Father - 07/24/2018 Comment: Added automatically from request for surgery [id number] Punctate Keratitis, Bilateral - 08/31/2017 Personal History [...] Karen Falk states that she has been getting some nosebleeds again, occasionally, in the last 3 weeks. No nasal, ear or sinus pain Cough: daily, dry, a little worse SOB: with minimal activity, even just standing up from a sitting position. Unable to walk because of dyspnea. SMALL/MEDIUM VESSEL VASCULITIS ROS: GENERAL: fatigue FEVER: none WEIGHT CHANGE: has gained ENT: negative for, sinus tenderness, nasal crusting, ear pain, sore throat, difficulty swallowing, mouth lesions, loud noisy breathing or stridor + hoarseness EYES: negative for , pain, redness, visual blurring, diplopia CARDIOVASCULAR: negative for, chest pain GASTROINTESTINAL: + chronic liquid diarrhea taking pancreatic enzymes URINARY: negative for, dysuria, hematuria MUSCULOSKELETAL: negative for, joint swelling SKIN: negative for, rash REVIEW OF FAMILY AND/OR SOCIAL HISTORY: The family and/or social were reviewed at todays visit and no changes were noted. Date of last DEXA: 06/30/2023 ([facility]) Current Outpatient Medications Medication Sig vibegron (GEMTESA) 75 mg tablet Take 75 mg by mouth once daily. cycloSPORINE (RESTASIS) 0.05 % ophthalmic emulsion Use 1 Drop in both eyes two times a day. potassium chloride (K-TAB) 10 mEq tablet Take 1 tablet by mouth two times a day. Patient reports 10 MEQ BID as of 06/26/24 lipase/protease/amylase (ZENPEP ORAL) Take 2 capsules by mouth with meals. OXYGEN, HOME THERAPY, Inhale 2 L/min as instructed as directed. budesonide, enteric coated (ENTOCORT EC) 3 mg 24 hr capsule TAKE 3 CAPSULES BY MOUTH IN THE MORNING FOR MICROSCOPIC COLITIS propylene glycoL (SYSTANE COMPLETE) 0.6 % drop Use 1 Drop in both eyes three times daily. Artificial Tear, Hypromellose, (GENTEAL TEARS SEVERE GEL) 0.3 % gel Use 1 Drop in both eyes daily at bedtime. aspirin, enteric coated (ASPIRIN, ENTERIC COATED) 81 mg EC tablet Take 81 mg by mouth once daily. Cholecalciferol, Vitamin D3, 50 mcg (2,000 unit) cap Take 2,000 Units by mouth two times a day. metoprolol tartrate, short acting, (LOPRESSOR) 25 mg tablet Take 12.5 mg by mouth twice daily. atorvastatin calcium(LIPITOR 10 MG TAB) Take one(1) tablet daily. acetaminophen(TYLENOL 325 MG TAB) Take two(2) tablets every four(4) to six(6) hours as needed for pain. No current facility-administered medications for this visit. PHYSICAL EXAMINATION Blood pressure 111/72, pulse 89, temperature 36.1 ?C (96.9 ?F), temperature source Temporal. GENERAL APPEARANCE: fatigued SKIN: normal without rashes or lesions EYES: conjunctiva clear, PERRL, EOM normal EA (more content not included)... Normal [facility] KAREN FALK ([id number]) 1950 [facility] Date Time Provider Department 07/10/24 [facility] During your visit today, we recorded the following information about you: Filiberto Suarez LPN 07/10/2024 8:58 AM Signed ----- Message from Jose Stewart MD sent at 07/10/2024 8:12 AM EDT ----- Normal cholesterol and thyroid levels. A1c in prediabetic range at 5.8. no change in regimen. Work on low carb diet and exercise. Filiberto Suarez LPN 07/10/2024 8:58 AM Signed Spoke with pt and information listed below given. Pt verbalizes understanding. Filiberto Suarez LPN Allergies As of Date: 07/10/2024 (No Known Allergies) Date Reviewed: 06/26/2024 Reviewed by: Evonne Castro LPN - Fully Assessed Reason for Visit: Results [95] Prescriptions as of 07/10/2024 - vibegron (GEMTESA) 75 mg tablet Take 75 mg by mouth once daily. - cycloSPORINE (RESTASIS) 0.05 % ophthalmic emulsion Use 1 Drop in both eyes two times a day. - potassium chloride (K-TAB) 10 mEq tablet Take 1 tablet by mouth two times a day. Patient reports 10 MEQ BID as of 06/26/24 - lipase/protease/amylase (ZENPEP ORAL) Take 2 capsules by mouth with meals. - OXYGEN, HOME THERAPY, Inhale 2 L/min as instructed as directed. 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 - Artificial Tear, Hypromellose, (GENTEAL TEARS SEVERE GEL) 0.3 % gel Use 1 Drop in both eyes daily at bedtime. - aspirin, enteric coated (ASPIRIN, ENTERIC COATED) 81 mg EC tablet Take 81 mg by mouth once daily. - Cholecalciferol, Vitamin D3, 50 mcg (2,000 unit) cap Take 2,000 Units by mouth two times a day. - metoprolol tartrate, short acting, (LOPRESSOR) 25 mg tablet Take 12.5 mg by mouth twice daily. - atorvastatin calcium(LIPITOR 10 MG TAB) Take one(1) tablet daily. - acetaminophen(TYLENOL 325 MG TAB) Take two(2) tablets every four(4) to six(6) hours as needed for pain. Problem List As Of Date 07/10/2024 Noted Resolved Acute gastritis without mention of hemorrhage [*08/30/2006 05/15/2019 DIAPHRAGMATIC HERNIA [K44.9] 08/30/2006 Breast cancer, stage 4 (HCC) [C50.919] 09/16/2009 10/27/2015 Tear film insufficiency, unspecified - Both Eye*08/28/2014 08/26/2016 Lens replaced by other means - Both Eyes [Z96.1]08/28/2014 08/26/2016 Other vitreous opacities - Both Eyes [H43.399] 08/28/2014 08/26/2016 Hyperlipidemia [E78.5] 08/28/2014 Floater, vitreous [H43.399] 08/22/2015 08/26/2016 Dry eye syndrome [H04.129] 08/22/2015 08/26/2016 Pseudophakia of both eyes [Z96.1] 08/22/2015 Colon cancer screening [Z12.11] 09/11/2015 09/11/2015 Vitreous floaters of both eyes [H43.393] 08/26/2016 Dry eye syndrome of both eyes [H04.123] 08/26/2016 Personal history of breast cancer [Z85.3] 01/24/2017 Punctate keratitis, 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] 08/31/2017 History of colonic polyps [Z86.010] 07/24/2018 Family history of colon cancer in father [Z80.0]07/24/2018 Obstructive sleep apnea [G47.33] 08/30/2018 08/20/2021 Shortness of breath [R06.02] 10/27/2016 Paroxysmal atrial fibrillation (HCC) [I48.0] 03/14/2019 05/15/2019 Palpitations [R00.2] 03/14/2019 Nonrheumatic mitral (valve) insufficiency [I34.*03/14/2019 Nonrheumatic tricuspid (valve) insufficiency [I*03/14/2019 Obesity, Class I, BMI 30-34.9 [E66.9] 03/19/2019 At risk for stroke [Z91.89] Anticoagulant long-term use [Z79.01] Persistent atrial fibrillation (HCC) [I48.19] 05/15/2019 05/31/2023 Status post catheter ablation of atrial fibrill* 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*07/22/2021 Coronary artery disease involving [place]*08/20/2021 Essential hypertension [I10] 10/27/2016 History of appendectomy [Z90.49] 08/20/2021 History of bariatric surgery [Z98.84] 08/20/2021 History of cataract extraction [Z98.49] 08/20/2021 History of tonsillectomy [Z90.89] 08/20/2021 Benign neoplasm of colon [D12.6] 12/01/2023 Esophageal reflux [K21.9] 12/01/2023 Pulmonary fibrosis (HCC) [J84.10] 12/01/2023 Osteoporosis, unspecified [M81.0] 12/01/2023 Encounter Status:Closed by FILIBERTO SUAREZ on 07/10/24 Normal [facility] CBC W Auto Differential pane l (Bld)on 06-30-2024 Basophils (Bld) [#/Vol] 0.07 10*3/uL Normal <0.11 [facility] Comment on above: Order Comment: Speci men Type: BLOOD SPECIMENOrdering Facility: [facility] Address: [address] [place] [address] Performed By: #### 4 537-7, 50996-9 ####[facility] LABCLIA [id number] [place] [address] [place] Basophils/100 WBC (Bld) 0.6 % Normal [facility] Comment on above: Order Comment: Speci men Type: BLOOD SPECIMENOrdering Facility: [facility] Address: [address] [place] [address] Performed By: #### 4 537-7, 25023-7 ####[facility]CL[facility] [id number] [place] [address] [place] Differential cell count method Nom (Bld) Auto Normal [facility] Comment on above: Order Comment: Speci men Type: BLOOD SPECIMENOrdering Facility: [facility] Address: [address] [place] [address] Performed By: #### 4 537-7, 70802-8 ####[facility]CL[facility] [id number] [place] [address] [place] Eosinophils (Bld) [#/Vol] 0.26 10*3/uL Normal <0.46 [facility] Comment on above: Order Comment: Speci men Type: BLOOD SPECIMENOrdering Facility: [facility] Address: [address] [place] [address] Performed By: #### 4 537-7, 57708-1 ####[facility]CL[facility] [id number] [place] [address] [place] Eosinophils/100 WBC (Bld) 2.4 % Normal [facility] Comment on above: Order Comment: Speci men Type: BLOOD SPECIMENOrdering Facility: [facility] Address: [address] [place] [address] Performed By: #### 4 537-7, 01716-1 ####[facility] LABIA [id number] [place] [address] [place] Erythrocyte distribution width (RBC) [Ratio] 15.9 % High 11.5-15.0 [facility] Comment on above: Order Comment: Speci men Type: BLOOD SPECIMENOrdering Facility: [facility] Address: [address] [place] [address] Performed By: #### 4 537-7, 22896-3 ####[facility] LABIA [id number] [place] [address] [place] Hematocrit (Bld) [Volume fraction] 43.9 % Normal 36.0-46.0 [facility] Comment on above: Order Comment: Speci men Type: BLOOD SPECIMENOrdering Facility: [facility] Address: [address] [place] [address] Performed By: #### 4 537-7, 82211-3 ####[facility] LABIA [id number] [place] [address] [place] Hemoglobin (Bld) [Mass/Vol] 13.5 g/dL Normal 11.5-15.5 [facility] Comment on above: Order Comment: Speci men Type: BLOOD SPECIMENOrdering Facility: [facility] Address: [address] [place] [address] Performed By: #### 4 537-7, 58858-1 ####[facility]CLIA [id number] [place] [address] [place] Immature granulocytes (Bld) [#/Vol] 0.20 10*3/uL High <0.10 [facility] Comment on above: Order Comment: Speci men Type: BLOOD SPECIMENOrdering Facility: [facility] Address: [address] [place] [address] Performed By: #### 4 537-7, 60923-9 ####[facility]CLIA [id number] [place] [address] [place] Immature granulocytes/100 WBC (Bld) 1.8 % Normal [facility] Comment on above: Order Comment: Speci men Type: BLOOD SPECIMENOrdering Facility: [facility] Address: [address] [place] [address] Performed By: #### 4 537-7, 96301-2 ####[facility]CLIA [id number] [place] [address] [place] Lymphocytes (Bld) [#/Vol] 2.52 10*3/uL Normal 1.00-4.00 [facility] Comment on above: Order Comment: Speci men Type: BLOOD SPECIMENOrdering Facility: [facility] Address: [address] [place] [address] Performed By: #### 4 537-7, 87427-5 ####[facility]CL[facility] [id number] [place] [address] [place] Lymphocytes/100 WBC (Bld) 23.2 % Normal [facility] Comment on above: Order Comment: Speci men Type: BLOOD SPECIMENOrdering Facility: [facility] Address: [address] [place] [address] Performed By: #### 4 537-7, 60089-2 ####[facility]CLIA [id number] [place] [address] [place] MCH (RBC) [Entitic mass] 29.8 pg Normal 26.0-34.0 [facility] Comment on above: Order Comment: Speci men Type: BLOOD SPECIMENOrdering Facility: [facility] Address: [address] [place] [address] Performed By: #### 4 537-7, 12405-1 ####[facility] LABIA [id number] [place] [address] [place] MCHC (RBC) [Mass/Vol] 30.8 g/dL Normal 30.5-36.0 [facility] Comment on above: Order Comment: Speci men Type: BLOOD SPECIMENOrdering Facility: [facility] Address: [address] [place] [address] Performed By: #### 4 537-7, 50601-5 ####[facility] [id number] [place] [address] [place] MCV (RBC) [Entitic vol] 96.9 fL Normal 80.0-100.0 [facility] Comment on above: Order Comment: Speci men Type: BLOOD SPECIMENOrdering Facility: [facility] Address: [address] [place] [address] Performed By: #### 4 537-7, 20052-1 ####[facility] LABIA [id number] [place] [address] [place] Monocytes (Bld) [#/Vol] 1.35 10*3/uL High <0.87 [facility] Comment on above: Order Comment: Speci men Type: BLOOD SPECIMENOrdering Facility: [facility] Address: [address] [place] [address] Performed By: #### 4 537-7, 81469-5 ####[facility] LABIA [id number] [place] [address] [place] Monocytes/100 WBC (Bld) 12.4 % Normal [facility] Comment on above: Order Comment: Speci men Type: BLOOD SPECIMENOrdering Facility: [facility] Address: [address] [place] [address] Performed By: #### 4 537-7, 77614-6 ####[facility] [id number] [place] [address] [place] Neutrophils (Bld) [#/Vol] 6.48 10*3/uL Normal 1.45-7.50 [facility] Comment on above: Order Comment: Speci men Type: BLOOD SPECIMENOrdering Facility: [facility] Address: [address] [place] [address] Performed By: #### 4 537-7, 84334-1 ####[facility] [id number] [place] [address] [place] Neutrophils/100 WBC (Bld) 59.6 % Normal [facility] Comment on above: Order Comment: Speci men Type: BLOOD SPECIMENOrdering Facility: [facility] Address: [address] [place] [address] Performed By: #### 4 537-7, 54949-2 ####[facility] [id number] [place] [address] [place] Nucleated RBC (Bld) [#/Vol] 10*3/uL Normal <0.01 [facility] Comment on above: Order Comment: Speci men Type: BLOOD SPECIMENOrdering Facility: [facility] Address: [address] [place] [address] Performed By: #### 4 537-7, 95464-5 ####[facility] [id number] [place] [address] [place] Nucleated RBC/100 WBC (Bld) [Ratio] 0.0 /100 WBC Normal [facility] Comment on above: Order Comment: Speci men Type: BLOOD SPECIMENOrdering Facility: [facility] Address: [address] [place] [address] Performed By: #### 4 537-7, 06325-1 ####[facility] [id number] [place] [address] [place] Platelet mean volume (Bld) [Entitic vol] 11.2 fL Normal 9.0-12.7 [facility] Comment on above: Order Comment: Speci men Type: BLOOD SPECIMENOrdering Facility: [facility] Address: [address] [place] [address] Performed By: #### 4 537-7, 07105-5 ####[facility] [id number] [place] [address] [place] Platelets (Bld) [#/Vol] 281 10*3/uL Normal 150-400 [facility] Comment on above: Order Comment: Speci men Type: BLOOD SPECIMENOrdering Facility: [facility] Address: [address] [place] [address] Performed By: #### 4 537-7, 97513-2 ####[facility] [id number] [place] [address] [place] RBC (Bld) [#/Vol] 4.53 10*6/uL Normal 3.90-5.20 [facility] Comment on above: Order Comment: Speci men Type: BLOOD SPECIMENOrdering Facility: [facility] Address: [address] [place] [address] Performed By: #### 4 537-7, 36931-5 ####[facility] [id number] [place] [address] [place] WBC (Bld) [#/Vol] 10.88 10*3/uL Normal 3.70-11.00 [facility] Comment on above: Order Comment: Speci men Type: BLOOD SPECIMENOrdering Facility: [facility] Address: [address] [place] [address] Performed By: #### 4 537-7, 54981-5 ####[facility] [id number] [place] [address] [place] Comprehensive metabolic 2000 panelon 06-30-2024 Albumin [Mass/Vol] 3.5 g/dL Low 3.9-4.9 [facility] Comment on above: Order Comment: Speci men Type: BLOOD SPECIMENOrdering Facility: [facility] Address: [address] [place] [address] Performed By: #### 3 016-3, 68116-4, LIPNF ####[facility] [id number] [place] [address] [place] ALP [Catalytic activity/Vol] 74 U/L Normal 34-123 [facility] Comment on above: Order Comment: Speci men Type: BLOOD SPECIMENOrdering Facility: [facility] Address: [address] [place] [address] Performed By: #### 3 016-3, 02742-3, LIPNF ####[facility] [id number] [place] [address] [place] ALT [Catalytic activity/Vol] 18 U/L Normal 7-38 [facility] Comment on above: Order Comment: Speci men Type: BLOOD SPECIMENOrdering Facility: [facility] Address: [address] [place] [address] Performed By: #### 3 016-3, 60498-5, LIPNF ####[facility]IA [id number] [place] [address] [place] Anion gap [Moles/Vol] 9 mmol/L Normal 8-15 [facility] Comment on above: Order Comment: Speci men Type: BLOOD SPECIMENOrdering Facility: [facility] Address: [address] [place] [address] Performed By: #### 3 016-3, 35598-2, LIPNF ####[facility] [id number] [place] [address] [place] AST [Catalytic activity/Vol] 20 U/L Normal 13-35 [facility] Comment on above: Order Comment: Speci men Type: BLOOD SPECIMENOrdering Facility: [facility] Address: [address] [place] [address] Performed By: #### 3 016-3, , LIPNF ####[facility] LABIA [id number] [place] [address] [place] Bilirubin [Mass/Vol] 0.4 mg/dL Normal 0.2-1.3 [facility] Comment on above: Order Comment: Speci men Type: BLOOD SPECIMENOrdering Facility: [facility] Address: [address] [place] [address] Performed By: #### 3 016-3, , LIPNF ####[facility] [id number] [place] [address] [place] Calcium [Mass/Vol] 9.3 mg/dL Normal 8.5-10.2 [facility] Comment on above: Order Comment: Speci men Type: BLOOD SPECIMENOrdering Facility: [facility] Address: [address] [place] [address] Performed By: #### 3 016-3, , LIPNF ####[facility]IA [id number] [place] [address] [place] Chloride [Moles/Vol] 107 mmol/L Normal 98-107 [facility] Comment on above: Order Comment: Speci men Type: BLOOD SPECIMENOrdering Facility: [facility] Address: [address] [place] [address] Performed By: #### 3 016-3, , LIPNF ####[facility] LABIA [id number] [place] [address] [place] CO2 [Moles/Vol] 26 mmol/L Normal 22-30 [facility] Comment on above: Order Comment: Speci men Type: BLOOD SPECIMENOrdering Facility: [facility] Address: [address] [place] [address] Performed By: #### 3 016-3, 14939-0, LIPNF ####[facility] [id number] [place] [address] [place] Creatinine [Mass/Vol] 0.98 mg/dL High 0.58-0.96 [facility] Comment on above: Order Comment: Speci men Type: BLOOD SPECIMENOrdering Facility: [facility] Address: [address] [place] [address] Performed By: #### 3 016-3, 55300-9, LIPNF ####[facility] [id number] [place] [address] [place] Creatinine and Glomerular filtration rate.predicted panel (S/P/Bld) 60 mL/min/1.73m??? Normal >=60 [facility] Comment on above: Order Comment: Speci men Type: BLOOD SPECIMENOrdering Facility: [facility] Address: [address] [place] [address] Result Comment: Zahida mated Glomerular Filtration Rate (eGFR) is calculated using the 2020 CKD-EPI creatinine equation. This equation utilizes serum creatinine, sex, and age as parameters. The creatinine assay has traceable calibration to isotope dilution-mass spectrometry. Refer to KDIGO guidelines for clinical interpretation. In patients with unstable renal function, e.g. those with acute kidney injury, the eGFR may not accurately reflect actual GFR. Performed By: #### 3 016-3, 49667-5, LIPNF ####[facility] [id number] [place] [address] [place] Glucose [Mass/Vol] 90 mg/dL Normal 74-99 [facility] Comment on above: Order Comment: Speci men Type: BLOOD SPECIMENOrdering Facility: [facility] Address: [address] [place] [address] Result Comment: The [place] Diabetes Association (ADA) provides guidance for cutoff [...] Standards of Medical Care in Diabetes 2016, [place] Diabetes Association. Diabetes Care. 2016.39(Suppl 1). Performed By: #### 3 016-3, 53142-1, LIPNF ####[facility] [id number] [place] [address] [place] Potassium [Moles/Vol] 4.0 mmol/L Normal 3.7-5.1 [facility] Comment on above: Order Comment: Speci men Type: BLOOD SPECIMENOrdering Facility: [facility] Address: [address] [place] [address] Performed By: #### 3 016-3, 46414-4, LIPNF ####[facility] [id number] [place] [address] [place] Protein [Mass/Vol] 5.7 g/dL Low 6.3-8.0 [facility] Comment on above: Order Comment: Speci men Type: BLOOD SPECIMENOrdering Facility: [facility] Address: [address] [place] [address] Performed By: #### 3 016-3, 01175-1, LIPNF ####[facility] [id number] [place] [address] [place] Sodium [Moles/Vol] 142 mmol/L Normal 136-144 [facility] Comment on above: Order Comment: Speci men Type: BLOOD SPECIMENOrdering Facility: [facility] Address: [address] [place] [address] Performed By: #### 3 016-3, 64806-4, LIPNF ####[facility] [id number] [place] [address] [place] Urea nitrogen [Mass/Vol] 12 mg/dL Normal 7-21 [facility] Comment on above: Order Comment: Speci men Type: BLOOD SPECIMENOrdering Facility: [facility] Address: [address] [place] [address] Performed By: #### 3 016-3, 74604-9, LIPNF ####[facility] LABIA [id number] [place] [address] [place] ESR Westergren method (Bld) [Velocity]on 06-30-2024 ESR (Bld) [Velocity] 23 mm/h High 0-20 [facility] Comment on above: Order Comment: Speci men Type: BLOOD SPECIMENOrdering Facility: [facility] Address: [address] [place] [address] Performed By: #### 4 537-7, 35834-2 ####[facility]IA [id number] [place] [address] [place] HbA1c (Bld)on 06-30-2024 Average glucose Estimated from glycated hemoglobin (Bld) [Mass/Vol] 120 mg/dL Normal [facility] Comment on above: Order Comment: Speci men Type: BLOOD SPECIMENOrdering Facility: [facility] Address: [address] [place] [address] Result Comment: eAG: (Estimated average glucose) is a calculated value from HgbA1c and is patient financial representative of the average blood glucose level in the last 2-3 month period. Performed By: #### 5 5454-3 ####[facility] [id number] [place] [address] [place] HbA1c (Bld) [Mass fraction] 5.8 % High 4.3-5.6 [facility] Comment on above: Order Comment: Speci men Type: BLOOD SPECIMENOrdering Facility: [facility] Address: [address] [place] [address] Result Comment: [place] Diabetes Association guidelines indicate that patients with HgbA1c in the range 5.7-6.4% are at increased risk for development of diabetes, and intervention by lifestyle modification may be beneficial. HgbA1c greater or equal to 6.5% is considered diagnostic of diabetes. Performed By: #### 5 5454-3 ####[facility] [id number] [address] [place] LIPID PANEL, NONFASTINGon Cholesterol [Mass/Vol] 152 mg/dL Normal <200 [facility] Comment on above: Order Comment: Rainai men Type: BLOOD SPECIMENOrdering Facility: [facility] Address: [address] [place] [address] Result Comment: <200 mg/dL, Desirable 200-239 mg/dL, Borderline high >239 mg/dL, High Performed By: #### 3 016-3, 46073-8, LIPNF ####[facility] [id number] [address] [place] HDL CHOLESTEROL, NF 58 mg/dL Normal >39 [facility] Comment on above: Order Comment: Speci men Type: BLOOD SPECIMENOrdering Facility: [facility] Address: [address] [place] [address] Result Comment: 40-5 9 mg/dL, Acceptable >59 mg/dL, High: Negative risk factor for coronary heart disease <40 mg/dL, Low: Positive risk factor for coronary heart disease Performed By: #### 3 016-3, 83444-8, LIPNF ####[facility] [id number] [place] [address] [place] LDL CHOLESTEROL, NF 68 mg/dL Normal <100 [facility] Comment on above: Order Comment: Speci men Type: BLOOD SPECIMENOrdering Facility: [facility] Address: [address] [place] [address] Result Comment: <100 mg/dL, Optimal 100-129 mg/dL, Near optimal/above optimal 130-159 mg/dL, Borderline high 160-189 mg/dL, High >189 mg/dL, Very high Secondary prevention optimal LDL Cholesterol levels are recommended to be < 70 mg/dL Performed By: #### 3 016-3, 41221-0, LIPNF ####[facility] [id number] [place] [address] [place] LDL/HDL RATIO, NF 1.17 mg/dL Normal <2.54 [facility] Comment on above: Order Comment: Speci men Type: BLOOD SPECIMENOrdering Facility: [facility] Address: [address] [place] [address] Result Comment: Refe rence: 1. National Cholesterol Education Program ATP III Guideline At-A-Glance Quick Desk Reference: National Heart, Lung, and Blood [place]. National Institutes of Health. 2001: NIH Publication No. 01-3305. 2. An International Atherosclerosis Society position paper: global recommendations for the management of dyslipidemia: executive summary, Atherosclerosis. 2014: 232(2):410-413. Performed By: #### 3 016-3, 54012-2, LIPNF ####[facility] [id number] [place] [address] [place] NON HDL CHOL, NF 94 mg/dL Normal <130 [facility] Comment on above: Order Comment: Rainai men Type: BLOOD SPECIMENOrdering Facility: [facility] Address: [address] [place] [address] Result Comment: <130 mg/dL, Optimal 130-159 mg/dL, Near optimal/above optimal 160-189 mg/dL, Borderline high 190-219 mg/dL, High >219 mg/dL, Very high Secondary prevention optimal non HDL Cholesterol levels are recommended to be <100 mg/dL Performed By: #### 3 016-3, 07589-3, LIPNF ####[facility]CL[facility] [id number] [place] [address] [place] T CHOL/HDL RATIO NF 2.62 mg/dL Normal <5.10 [facility] Comment on above: Order Comment: Speci men Type: BLOOD SPECIMENOrdering Facility: [facility] Address: [address] [place] [address] Performed By: #### 3 016-3, 43095-5, LIPNF ####[facility]CL[facility] [id number] [place] [address] [place] TRIGLYCERIDES, NF 130 mg/dL Normal <150 [facility] Comment on above: Order Comment: Speci men Type: BLOOD SPECIMENOrdering Facility: [facility] Address: [address] [place] [address] Result Comment: <150 mg/dL, Normal 150-199 mg/dL, Borderline high 200-499 mg/dL, High >499 mg/dL, Very high Performed By: #### 3 016-3, 59863-8, LIPNF ####[facility] [id number] [place] [address] [place] VLDL CHOLESTEROL, NF 26 mg/dL Normal <30 [facility] Comment on above: Order Comment: Speci men Type: BLOOD SPECIMENOrdering Facility: [facility] Address: [address] [place] [address] Performed By: #### 3 016-3, 32183-7, LIPNF ####[facility]CL[facility] [id number] [place] [address] [place] TSH SerPl-aCncon 06-30-2024 TSH Qn 3.260 m[IU]/L Normal 0.270-4.200 [facility] Comment on above: Order Comment: Speci men Type: BLOOD SPECIMENOrdering Facility: [facility] Address: [address] [place] [address] Performed By: #### 3 016-3, 59239-7, LIPNF ####[facility] [id number] [id number] [address] [place] CNOVon 06-26-2024 CNOV Office Visit (FAMPWS ) -------- KAREN FALK ([id number]) 1950 F [facility] Date Time Provider Department 06/26/24 4:40 PM [facility] During your visit today, we recorded the following information about you: Pulse Respiration Blood pressure Weight 60/minute 16/minute 118/76 89.5 kg Jose Stewart MD 06/29/2024 8:16 PM Signed Chief Complaint Patient presents with: Follow Up: 6 month HPI Karen Falk is a 74 year old female who presents here today for Above Complaints. Accompanied today by her . Patient states that she is eating only 1,000 calories per day and is still gaining weight. Unable to exercise due to her chronic medical conditions. Interested in medications for weight loss. Not interested in referral to dietitian. BP in good range today on metoprolol. Does not check BP at home. Denies HTN symptoms of headache, vision changes, chest pain, worsening SOB, leg swelling. Has history of pulmonary fibrosis managed by Dr. Rae at [facility] on a yearly basis. Started treatment with Ofev for worsening disease, but patient could not tolerate this. Stopped using oxygen at night, but has not notified their office. Not on any inhalers at this time. Admits to SOB with exertion, cough, and wheezing. Has f/u with Dr. Rae in 2 weeks. CAD/History of a fib s/p ablation: Managed by [facility] cardiology. Has follow up appointment with their office every 6 months with next OV in August. No changes to regimen at last OV. Asymptomatic. Denies palpitations or tachycardia since her ablation. 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 Checking labs every 2 months which were reviewed today. Patient states that they never did stop her Rituxan and has f/u with Dr. Eliceo Escobar next month. Overactive bladder symptoms improved on Gemtesa. Denies incontinence, dysuria, hematuria, frequency, urgency. Past medical history, appointments, medications, allergies reviewed. Previous Medical History PAST MEDICAL HISTORY No date: Acute gastritis without mention of hemorrhage No date: Anticoagulant long-term use Comment: apixaban (Eliquis); indication: stroke prevention AF No date: Arrhythmia No date: At risk for stroke Comment: [id number] = 4 (HTN, age, CAD, female gender) No date: Benign neoplasm of colon 2008: Breast cancer, stage 4 (HCC) Comment: right breast - chemo and radiation No date: Coronary artery disease involving northwestern shoshone coronary artery of northwestern shoshone heart without angina pectoris No date: Diaphragmatic hernia without mention of obstruction or gangrene No date: Diverticulosis of colon (without mention of hemorrhage) No date: Esophageal reflux No date: Essential hypertension No date: Family history of malignant neoplasm of gastrointestinal tract No date: Fatigue No date: Granulomatosis with polyangiitis (HCC) 07/22/2021: 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) No date: HLD (hyperlipidemia) No date: Hypercholesteremia No date: Lipodermatosclerosis of both lower extremities No date: Nonrheumatic mitral (valve) insufficiency No date: Nonrheumatic tricuspid (valve) insufficiency No date: Obesity No date: OXANA (obstructive sleep apnea) No date: Osteoporosis, unspecified No date: Other and unspecified hyperlipidemia No date: Palpitations No date: Persistent atrial fibrillation (HCC) Comment: initially paroxysmal but became persistent over time; s/p AF catheter ablation 05/15/2019. Not needing anticoagulation. No date: Personal history of colonic polyps No date: Pulmonary fibrosis (HCC) Comment: Dr. 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 Jackson No date: APPENDECTOMY 05/15/2008: CARDIAC CATH; Left Comment: preserved LV systolic fxn; no significant CAD 12/13/2016: CARDIAC STRESS TEST Comment: reportedly no ischemia; AF noted; preserved LVEF 12/29/2004: COLONOSCOPY FLX DX W/COLLJ SPEC WHEN PFRMD Comment: Colonoscopy 12/02/2009: COLONOSCOPY FLX DX W/COLLJ SPEC WHEN PFRMD 09/11/2015: COLONOSCOPY FLX DX W/COLLJ SPEC WHEN PFRMD Comment: Colonoscopy 10/09/2018: COLONOSCOPY FLX DX W/COLLJ SPEC WHEN PFRMD Comment: repeat 5 years 03/23/2018: ECHOCARDIOGRAM Comment: LVEF 60%; stage I diastolic dysfxn; mild MR, mild TR 03/23/2019: ECHOCARDIOGRAM Comment: normal LV systolic fxn; LVEF 60%; normal LA size; mild MR, TR 08/08/2019: ECHOCARDIOGRAM Comment: normal LV systolic fxn; LVEF 55%; normal LA size; 1-2+ MR; 1+ TR 10/2 (more content not included)... Normal [facility] CNCOon 06-25-2024 CNCO Letter Text Normal [facility] CNOVon 04-23-2024 CNOV Office Visit (FAMPWS ) -------- KAREN FALK ([id number]) 1950 [facility] Date Time Provider Department 04/23/24 9:20 AM JOSE STEWART FAMPWS During your visit today, we recorded the following information about you: Temperature Pulse Blood pressure 98.2 degrees 68/minute 116/70 Jose Stewart MD 04/23/2024 9:41 AM Signed Chief Complaint Patient presents with: Transition Of Care: TCM- hospital discharge 04/16/24 DAMARIS Paniagua Deya is a 73 year old female who presents here today for Hospital Discharge Follow up and TCM. Patient admitted to [facility] from 04/15 to 04/16 for cellulitis of right upper extremity which started suddenly with spread to left chest wall. Treated with IV Unasyn while inpatient and was transitioned to Keflex 500 mg TID x 5 days on discharge. Erythema resolved much faster than expected while inpatient and there was some suspicion of possible infusion reaction from Rituxan. Blood work did show WBC of 15.1 in the ER and xrays of the forearm and humerus were negative for fracture. WBC did trend down prior to discharge. Since discharge, patient did complete her Keflex as prescribed without side effects. Erythema has resolved. Denies fever/chills, warmth to touch, swelling, pain. No new rash in other locations. Tolerating PO diet and is helping with ADLs at home. TRANSITION CARE MANAGEMENT (TCM) INITIAL CONTACT Urban [employer] Professor Outreach Provider Action/FYI: Initial contact with patient post discharge, spoke to patient. Patient identified by name and . TRANSITION CARE MANAGEMENT INITIAL OUTREACH DOCUMENTATION: 04/17/2024 Date of Outreach: Outreach Attempt 1: Contact Made Date of Discharge 04/16/2024 SUMMARY: -Pt discharged from [facility] on 04/16/24. -Admitted for: cellulitis of right upper extremity Do you have a hospital follow up appointment with your PCP? Appointment on 04/23/[address] Stewart. Yes. Remind patient of appointment date, time, and location. If not within 14 calendar days of discharge - please reschedule accordingly. MEDICATIONS: Many patients have questions or concerns about their medications once they are home. Were you prescribed any new medications? If yes, what are those medications? Cephalexin 500mg Were you told to hold any medications? No Were any of your medications discontinued? No Do you have any questions about getting or taking your medications? No Your discharge instructions/After visit Summary (AVS) are important in guiding you through the recovery process. Is there anything I might help you understand? No Do you have all the necessary equipment and supplies at home? Yes Medical records from recent hospitalization: Records received and reviewed by PCP Past medical history, appointments, medications, allergies reviewed. Previous Medical History PAST MEDICAL HISTORY Diagnosis Date Acute gastritis without mention of hemorrhage Anticoagulant long-term use apixaban (Eliquis); indication: stroke prevention AF Arrhythmia At risk for stroke [id number] = 4 (HTN, age, CAD, female gender) Benign neoplasm of colon Breast cancer, stage 4 (HCC) 2007 right breast - chemo and radiation Coronary artery disease involving northwestern shoshone coronary artery of [place] heart without angina pectoris Diaphragmatic hernia without [...] persistent over time; s/p AF catheter ablation 05/15/2019. Not needing anticoagulation. Personal history of colonic polyps Pulmonary fibrosis (HCC) Dr. 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 Jackson APPENDECTOMY CARDIAC CATH Left 05/15/2008 preserved LV systolic fxn; no significant CAD CARDIAC STRESS TEST 12/13/2016 reportedly no ischemia; AF noted; preserved LVEF COLONOSCOPY FLX DX W/COLLJ SPEC WHEN PFRMD 12/29/ (more content not included)... Normal [facility] HBV core Ab Ql (S)on Interpretation and review of laboratory results Normal [facility] HBV core Ab Ser Qlon HBV core Ab Ql (S) Negative Normal Negative [facility] Comment on above: Order Comment: Speci men Type: BLOOD SPECIMENOrdering Facility: [facility] Address: [address] [place] [address] Result Comment: No e vidence of current or past infection with Hepatitis B virus. Should recent infection be suspected, repeat testing may be considered 3-4 weeks after this draw. Performed By: #### 1 6933-4, 98347-5, 5195-3 ####[facility] [id number] [place] [address] [place] HBV surface Ab Ql (S)on HBV surface Ab Qn (S) <8.00 Normal [facility] Comment on above: Order Comment: Speci men Type: BLOOD SPECIMENOrdering Facility: [facility] Address: [address] [place] [address] Result Comment: <8 m IU/mL: No serological evidence of immunity to Hepatitis B Virus. >/= 8 to <12 mIU/mL: No serological evidence of immunity to Hepatitis B Virus. >/= 12 mIU/mL: Consistent with serological evidence of immunity to Hepatitis B Virus. Performed By: #### 1 6933-4, 28484-9, 5194-3 ####[facility] [id number] [address] [place] HBV surface Ab Ser Qlon HBV surface Ab Ql (S) Negative Normal [facility] Comment on above: Order Comment: Speci men Type: BLOOD SPECIMENOrdering Facility: [facility] Address: [address] [place] [address] Result Comment: No s erological evidence of immunity to Hepatitis B Virus. Performed By: #### 1 6933-4, 53359-2, 5194-3 ####[facility] [id number] [place] [address] [place] HBV surface Ag Ql (S)on Interpretation and review of laboratory results Normal [facility] HBV surface Ag Ser Qlon HBV surface Ag Ql (S) Negative Normal Negative [facility] Comment on above: Order Comment: Speci men Type: BLOOD SPECIMENOrdering Facility: [facility] Address: [address] [place] [address] Performed By: #### 1 6933-4, 88176-4, 5194-3 ####[facility] [id number] [place] [address] [place] HCV Ab Ql (S)on 04-13-2024 Interpretation and review of laboratory results Normal [facility] HCV Ab Ser Qlon 04-13-2024 HCV Ab Ql (S) Negative Normal Negative [facility] Comment on above: Order Comment: Kasandra greene Type: BLOOD SPECIMENOrdering Facility: [facility] Address: [address] [place] [address] Result Comment: The result suggests no evidence of active infection with Hepatitis C virus. Should recent infection be suspected, repeat testing may be considered 4-6 weeks after this draw. Performed By: #### 1 6128-1 ####[facility] [id number] [place] [address] [place] HEPATITIS B CORE ANTIBODY TO Myrna 04-13-2024 HBV core Ab Ql (S) Negative Negative [facility] Comment on above: No evidence of curre nt or past infection with Hepatitis B virus. Should recent infection be suspected, repeat testing may be considered 3-4 weeks after this draw. HEPATITIS B SURFACE ANTIGENo n 04-13-2024 HBV surface Ag Ql (S) Negative Negative [facility] HEPATITIS C ANTIBODY IA WITH CONFIRMATIONon 04-13-2024 HCV Ab Ql (S) Negative Negative [facility] Comment on above: The result suggests no evidence of active infection with Hepatitis C virus. Should recent infection be suspected, repeat testing may be considered 4-6 weeks after this draw. IMMUNOGLOBULIN Griffin IgG [Mass/Vol] 318 mg/dL Low 700 - 1600 mg/dL [facility] IgG SerPl-mCncon 04-13-2024 IgG [Mass/Vol] 318 mg/dL Low 700-1600 [facility] Comment on above: Order Comment: Kasandra men Type: BLOOD SPECIMENOrdering Facility: [facility] Address: [address] [place] [address] Performed By: #### 2 465-3 ####[facility] [id number] [place] [address] [place] IgG [Mass/Vol]on 04-13-2024 Interpretation and review of laboratory results Abnormal [facility] CNPNon 03-28-2024 CNPN Telephone (RHEUMN) -------- DEYAKAREN Paniagua ([id number]) 1950 F [facility] Date Time Provider Department 03/28/24 AMOR STAPLETONN During your visit today, we recorded the following information about you: Elvira Cao 03/28/2024 4:56 PM Signed Received outside medical records. Scanned into chart for review. JuliocesarjoeJuan 04/06/2024 3:46 PM Signed Patient called and left voicemail. She stated that an outside med list was updated before she could proceed with infusion. Information has been scanned into patient chart. Could you please follow up with her to let her know if this is sufficient for her to get her upcoming infusion? Thank you! Zenia Herrera 04/06/2024 3:53 PM Signed Please review outside medical records that have been scanned into [employer] and forward to appropriate staff for review/approval of treatment. Zenia Herrera Allergies As of Date: 03/28/2024 (No Known Allergies) Date Reviewed: 03/06/2024 Reviewed by: Evonne Castro LPN - Fully Assessed Reason for Visit: Received Outside Medical Records [[id number]] Prescriptions as of 04/06/2024 - lipase/protease/amylase (ZENPEP ORAL) Take by mouth two times a day. Patient currently using sample pack and finding it effective for her chronic diarrhea - potassium chloride (K-TAB) 10 mEq tablet Take 2 tablets by mouth two times a day. - OXYGEN, HOME THERAPY, Inhale 2 L/min as instructed as directed. 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 - Artificial Tear, Hypromellose, (GENTEAL TEARS SEVERE GEL) 0.3 % gel Use 1 Drop in both eyes daily at bedtime. - aspirin, enteric coated (ASPIRIN, ENTERIC COATED) 81 mg EC tablet Take 81 mg by mouth once daily. - Cholecalciferol, Vitamin D3, 50 mcg (2,000 unit) cap Take by mouth. - metoprolol tartrate, short acting, (LOPRESSOR) 25 mg tablet Take 12.5 mg by mouth twice daily. - atorvastatin calcium(LIPITOR 10 MG TAB) Take one(1) tablet daily. - acetaminophen(TYLENOL 325 MG TAB) Take two(2) tablets every four(4) to six(6) hours as needed for pain. Problem List As Of Date 03/28/2024 Noted Resolved Acute gastritis without mention of hemorrhage [*08/30/2006 05/15/2019 DIAPHRAGMATIC HERNIA [K44.9] 08/30/2006 Breast cancer, stage 4 (HCC) [C50.919] 09/16/2009 10/27/2015 Tear film insufficiency, unspecified - Both Eye*08/28/2014 08/26/2016 Lens replaced by other means - Both Eyes [Z96.1]08/28/2014 08/26/2016 Other vitreous opacities - Both Eyes [H43.399] 08/28/2014 08/26/2016 Hyperlipidemia [E78.5] 08/28/2014 Floater, vitreous [H43.399] 08/22/2015 08/26/2016 Dry eye syndrome [H04.129] 08/22/2015 08/26/2016 Pseudophakia of both eyes [Z96.1] 08/22/2015 Colon cancer screening [Z12.11] 09/11/2015 09/11/2015 Vitreous floaters of both eyes [H43.393] 08/26/2016 Dry eye syndrome of both eyes [H04.123] 08/26/2016 Personal history of breast cancer [Z85.3] 01/24/2017 Punctate keratitis, 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] 08/31/2017 History of colonic polyps [Z86.010] 07/24/2018 Family history of colon cancer in father [Z80.0]07/24/2018 Obstructive sleep apnea [G47.33] 08/30/2018 08/20/2021 Shortness of breath [R06.02] 10/27/2016 Paroxysmal atrial fibrillation (HCC) [I48.0] 03/14/2019 05/15/2019 Palpitations [R00.2] 03/14/2019 Nonrheumatic mitral (valve) insufficiency [I34.*03/14/2019 Nonrheumatic tricuspid (valve) insufficiency [I*03/14/2019 Obesity, Class I, BMI 30-34.9 [E66.9] 03/19/2019 At risk for stroke [Z91.89] Anticoagulant long-term use [Z79.01] Persistent atrial fibrillation (HCC) [I48.19] 05/15/2019 05/31/2023 Status post catheter ablation of atrial fibrill* 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*07/22/2021 Coronary artery disease involving [place]*08/20/2021 Essential hypertension [I10] 10/27/2016 History of appendectomy [Z90.49] 08/20/2021 History of bariatric surgery [Z98.84] 08/20/2021 History of cataract extraction [Z98.49] 08/20/2021 History of tonsillectomy [Z90.89] 08/20/2021 Benign neoplasm of colon [D12.6] 12/01/2023 Esophageal reflux [K21.9] 12/01/2023 Pulmonary fibrosis (HCC) [J84.10] 12/01/2023 Osteoporosis, unspecified [M81.0] 12/01/2023 Encounter Status:Closed by JUAN RICCI on 04/06/24 Normal [facility] URINALYSIS, REFLEX MICROSCOP ICon 03-21-2024 BACTERIA UL >9821 High Negative [facility] Comment on above: Order Comment: Speci men Type: URINE SPECIMENOrdering Facility: [facility] Address: [address] [place] [address] Performed By: #### L [id number] ####[facility] [id number] [place] [address] [place] Bilirubin Ql (U) Negative Normal Negative [facility] Comment on above: Order Comment: Speci men Type: URINE SPECIMENOrdering Facility: [facility] Address: [address] [place] [address] Performed By: #### L [id number] ####[facility] [id number] [place] [address] [place] Clarity (Unsp spec) Cloudy Abnormal Clear [facility] Comment on above: Order Comment: Speci men Type: URINE SPECIMENOrdering Facility: [facility] Address: [address] [place] [address] Performed By: #### L [id number] ####[facility] [id number] [place] [address] [place] Color (U) Yellow Normal Yellow [facility] Comment on above: Order Comment: Speci men Type: URINE SPECIMENOrdering Facility: [facility] Address: [address] [place] [address] Performed By: #### L [id number] ####[facility] [id number] [place] [address] [place] Epithelial cells LM.HPF (Urine sed) [#/Area] None Seen Normal [facility] Comment on above: Order Comment: Speci men Type: URINE SPECIMENOrdering Facility: [facility] Address: [address] [place] [address] Performed By: #### L [id number] ####[facility] [id number] [place] [address] [place] Glucose Test strip (U) [Mass/Vol] Negative Normal Negative [facility] Comment on above: Order Comment: Speci men Type: URINE SPECIMENOrdering Facility: [facility] Address: [address] [place] [address] Performed By: #### L [id number] ####[facility] [id number] [place] [address] [place] Hemoglobin Ql (U) Negative Normal Negative [facility] Comment on above: Order Comment: Speci men Type: URINE SPECIMENOrdering Facility: [facility] Address: [address] [place] [address] Performed By: #### L [id number] ####[facility] [id number] [place] [address] [place] Hyaline casts (Urine sed) [#/Area] 4-10 /LPF Abnormal 0 /LPF [facility] Comment on above: Order Comment: Speci men Type: URINE SPECIMENOrdering Facility: [facility] Address: [address] [place] [address] Performed By: #### L [id number] ####[facility] [id number] [place] [address] [place] Ketones Ql (U) Negative Normal Negative [facility] Comment on above: Order Comment: Speci men Type: URINE SPECIMENOrdering Facility: [facility] Address: [address] [place] [address] Performed By: #### L [id number] ####[facility] [id number] [place] [address] [place] Leukocyte esterase Test strip Ql (U) 3+ Abnormal Negative [facility] Comment on above: Order Comment: Speci men Type: URINE SPECIMENOrdering Facility: [facility] Address: [address] [place] [address] Performed By: #### L [id number] ####[facility] [id number] [place] [address] [place] Nitrite Ql (U) Positive Abnormal Negative [facility] Comment on above: Order Comment: Speci men Type: URINE SPECIMENOrdering Facility: [facility] Address: [address] [place] [address] Performed By: #### L [id number] ####[facility] [id number] [place] [address] [place] pH (U) 7.5 [pH] Normal <8.5 [facility] Comment on above: Order Comment: Speci men Type: URINE SPECIMENOrdering Facility: [facility] Address: [address] [place] [address] Performed By: #### L [id number] ####[facility] [id number] [place] [address] [place] Protein (U) [Mass/Vol] Trace Abnormal Negative [facility] Comment on above: Order Comment: Speci men Type: URINE SPECIMENOrdering Facility: [facility] Address: [address] [place] [address] Performed By: #### L [id number] ####[facility] [id number] [place] [address] [place] RBC LM.HPF (Urine sed) [#/Area] 0-2 /HPF Normal 0-2 /HPF [facility] Comment on above: Order Comment: Speci men Type: URINE SPECIMENOrdering Facility: [facility] Address: [address] [place] [address] Performed By: #### L [id number] ####[facility] [id number] [place] [address] [place] Specific gravity (U) [Rel density] 1.014 Normal 1.005-1.030 [facility] Comment on above: Order Comment: Speci men Type: URINE SPECIMENOrdering Facility: [facility] Address: [address] [place] [address] Performed By: #### L [id number] ####[facility] [id number] [place] [address] [place] Urobilinogen Ql (U) 0.2 EU/dL Normal 0.2-1.0 EU/dL [facility] Comment on above: Order Comment: Speci men Type: URINE SPECIMENOrdering Facility: [facility] Address: [address] [place] [address] Performed By: #### L [id number] ####[facility] [id number] [place] [address] [place] WBC LM.HPF (Urine sed) [#/Area] /[HPF] Abnormal 0-5 /HPF [facility] Comment on above: Order Comment: Speci men Type: URINE SPECIMENOrdering Facility: [facility] Address: [address] [place] [address] Performed By: #### L [id number] ####[facility] [id number] [place] [address] [place] CBC W Auto Differential pane l (Bld)on 03-19-2024 Basophils (Bld) [#/Vol] 0.05 10*3/uL Normal <0.11 [facility] Comment on above: Order Comment: Speci men Type: BLOOD SPECIMEN [facility] Address: [address] [place] [address] Performed By: #### 4 537-7 #### [facility]IA [id number] [address] [place] [address] [place] Basophils/100 WBC (Bld) 0.4 % Normal [facility] Comment on above: Order Comment: Speci men Type: BLOOD SPECIMEN [facility] Address: [address] [place] [address] Performed By: #### 4 537-7 #### [facility] CLIA [id number] [address] [place] [address] [place] Differential cell count method Nom (Bld) Auto Normal [facility] Comment on above: Order Comment: Speci men Type: BLOOD SPECIMEN [facility] Address: [address] [place] [address] Performed By: #### 4 537-7 #### [facility]IA [id number] [address] [place] [address] [place] Eosinophils (Bld) [#/Vol] 0.24 10*3/uL Normal <0.46 [facility] Comment on above: Order Comment: Speci men Type: BLOOD SPECIMEN [facility] Address: [address] [place] [address] Performed By: #### 4 537-7 #### [facility]IA [id number] [address] [place] [address] [place] Eosinophils/100 WBC (Bld) 1.7 % Normal [facility] Comment on above: Order Comment: Speci men Type: BLOOD SPECIMEN [facility] Address: [address] [place] [address] Performed By: #### 4 537-7 #### [facility] CLIA [id number] [address] [place] [address] [place] Erythrocyte distribution width (RBC) [Ratio] 17.1 % High 11.5-15.0 [facility] Comment on above: Order Comment: Speci men Type: BLOOD SPECIMEN [facility] Address: [address] [place] [address] Performed By: #### 4 537-7 #### [facility] CLIA [id number] [address] [place] [address] [place] Hematocrit (Bld) [Volume fraction] 41.0 % Normal 36.0-46.0 [facility] Comment on above: Order Comment: Speci men Type: BLOOD SPECIMEN [facility] Address: [address] [place] [address] Performed By: #### 4 537-7 #### [facility] CLIA [id number] [address] [place] [address] [place] Hemoglobin (Bld) [Mass/Vol] 13.0 g/dL Normal 11.5-15.5 [facility] Comment on above: Order Comment: Speci men Type: BLOOD SPECIMEN [facility] Address: [address] [place] [address] Performed By: #### 4 537-7 #### [facility] CLIA [id number] [address] [place] [address] [place] Immature granulocytes (Bld) [#/Vol] 0.23 10*3/uL High <0.10 [facility] Comment on above: Order Comment: Speci men Type: BLOOD SPECIMEN [facility] Address: [address] [place] [address] Performed By: #### 4 537-7 #### [facility] CLIA [id number] [address] [place] [address] [place] Immature granulocytes/100 WBC (Bld) 1.6 % Normal [facility] Comment on above: Order Comment: Speci men Type: BLOOD SPECIMEN [facility] Address: [address] [place] [address] Performed By: #### 4 537-7 #### [facility] CLIA [id number] [address] [place] [address] [place] Lymphocytes (Bld) [#/Vol] 2.24 10*3/uL Normal 1.00-4.00 [facility] Comment on above: Order Comment: Speci men Type: BLOOD SPECIMEN [facility] Address: [address] [place] [address] Performed By: #### 4 537-7 #### [facility] CLIA [id number] [address] [place] [address] [place] Lymphocytes/100 WBC (Bld) 15.8 % Normal [facility] Comment on above: Order Comment: Speci men Type: BLOOD SPECIMEN [facility] Address: [address] [place] [address] Performed By: #### 4 537-7 #### [facility] CLIA [id number] [address] [place] [address] [place] MCH (RBC) [Entitic mass] 29.3 pg Normal 26.0-34.0 [facility] Comment on above: Order Comment: Speci men Type: BLOOD SPECIMEN [facility] Address: [address] [place] [address] Performed By: #### 4 537-7 #### [facility] CLIA [id number] [address] [place] [address] [place] MCHC (RBC) [Mass/Vol] 31.7 g/dL Normal 30.5-36.0 [facility] Comment on above: Order Comment: Speci men Type: BLOOD SPECIMEN [facility] Address: [address] [place] [address] Performed By: #### 4 537-7 #### [facility] CLIA [id number] [address] [place] [address] [place] MCV (RBC) [Entitic vol] 92.3 fL Normal 80.0-100.0 [facility] Comment on above: Order Comment: Speci men Type: BLOOD SPECIMEN [facility] Address: [address] [place] [address] Performed By: #### 4 537-7 #### [facility] CLIA [id number] [address] [place] [address] [place] Monocytes (Bld) [#/Vol] 1.40 10*3/uL High <0.87 [facility] Comment on above: Order Comment: Speci men Type: BLOOD SPECIMEN [facility] Address: [address] [place] [address] Performed By: #### 4 537-7 #### [facility] CLIA [id number] [address] [place] [address] [place] Monocytes/100 WBC (Bld) 9.9 % Normal [facility] Comment on above: Order Comment: Speci men Type: BLOOD SPECIMEN [facility]: [facility] Address: [address] [place] [address] Performed By: #### 4 537-7 #### [facility] CLIA [id number] [address] [place] [address] [place] Neutrophils (Bld) [#/Vol] 10.04 10*3/uL High 1.45-7.50 [facility] Comment on above: Order Comment: Speci men Type: BLOOD SPECIMEN [facility]: [facility] Address: [address] [place] [address] Performed By: #### 4 537-7 #### [facility] CLIA [id number] [address] [place] [address] [place] Neutrophils/100 WBC (Bld) 70.6 % Normal [facility] Comment on above: Order Comment: Speci men Type: BLOOD SPECIMEN [facility]: [facility] Address: [address] [place] [address] Performed By: #### 4 537-7 #### [facility] CLIA [id number] [address] [place] [address] [place] Nucleated RBC (Bld) [#/Vol] 10*3/uL Normal <0.01 [facility] Comment on above: Order Comment: Speci men Type: BLOOD SPECIMEN [facility]: [facility] Address: [address] [place] [address] Performed By: #### 4 537-7 #### [facility] CLIA [id number] [address] [place] [address] [place] Nucleated RBC/100 WBC (Bld) [Ratio] 0.0 /100 WBC Normal [facility] Comment on above: Order Comment: Speci men Type: BLOOD SPECIMEN [facility]: [facility] Address: [address] [place] [address] Performed By: #### 4 537-7 #### [facility] CLIA [id number] [address] [place] [address] [place] Platelet mean volume (Bld) [Entitic vol] 11.2 fL Normal 9.0-12.7 [facility] Comment on above: Order Comment: Speci men Type: BLOOD SPECIMEN [facility]ing [facility]: [facility] Address: [address] [place] [address] Performed By: #### 4 537-7 #### [facility] CLIA [id number] [address] [place] [address] [place] Platelets (Bld) [#/Vol] 311 10*3/uL Normal 150-400 [facility] Comment on above: Order Comment: Speci men Type: BLOOD SPECIMEN Ordering Facility: [facility] Address: [address] [place] [address] Performed By: #### 4 537-7 #### [facility] CLIA [id number] [address] [place] [address] [place] RBC (Bld) [#/Vol] 4.44 10*6/uL Normal 3.90-5.20 [facility] Comment on above: Order Comment: Speci men Type: BLOOD SPECIMEN Ordering Facility: [facility] Address: [address] [place] [address] Performed By: #### 4 537-7 #### [facility] CLIA [id number] [address] [place] [address] [place] WBC (Bld) [#/Vol] 14.20 10*3/uL High 3.70-11.00 [facility] Comment on above: Order Comment: Speci men Type: BLOOD SPECIMEN Ordering Facility: [facility] Address: [address] [place] [address] Performed By: #### 4 537-7 #### [facility] CLIA [id number] [address] [place] [address] [place] Comprehensive metabolic 2000 panelon 03-19-2024 Albumin [Mass/Vol] 3.6 g/dL Low 3.9-4.9 [facility] Comment on above: Order Comment: Speci men Type: BLOOD SPECIMENOrdering Facility: [facility] Address: [address] [place] [address] Performed By: #### 2 4323-8 ####[facility] RODRIGO MILLTOWNCLIA [id number] [place] [address] [place] ALP [Catalytic activity/Vol] 87 U/L Normal 34-123 [facility] Comment on above: Order Comment: Speci men Type: BLOOD SPECIMENOrdering Facility: [facility] Address: [address] [place] [address] Performed By: #### 2 4323-8 ####[facility] RODRIGO MILLTOWNCLIA [id number] [place] [address] [place] ALT [Catalytic activity/Vol] 13 U/L Normal 7-38 [facility] Comment on above: Order Comment: Speci men Type: BLOOD SPECIMENOrdering Facility: [facility] Address: [address] [place] [address] Performed By: #### 2 4323-8 ####[facility] CARMELITATOWNCLIA [id number] [place] [address] [place] Anion gap [Moles/Vol] 6 mmol/L Low 9-18 [facility] Comment on above: Order Comment: Speci men Type: BLOOD SPECIMENOrdering Facility: [facility] Address: [address] [place] [address] Performed By: #### 2 4323-8 ####[facility] RODRIGO MILLTOWNCLIA [id number] [place] [address] [place] AST [Catalytic activity/Vol] 11 U/L Low 13-35 [facility] Comment on above: Order Comment: Speci men Type: BLOOD SPECIMENOrdering Facility: [facility] Address: [address] [place] [address] Performed By: #### 2 4323-8 ####[facility] RODRIGO MILLTOWNCLIA [id number] [place] [address] [place] Bilirubin [Mass/Vol] 0.5 mg/dL Normal 0.2-1.3 [facility] Comment on above: Order Comment: Speci men Type: BLOOD SPECIMENOrdering Facility: [facility] Address: [address] [place] [address] Performed By: #### 2 4323-8 ####[facility] MILLTOWNCLIA [id number] [place] [address] [place] Calcium [Mass/Vol] 9.8 mg/dL Normal 8.5-10.2 [facility] Comment on above: Order Comment: Speci men Type: BLOOD SPECIMENOrdering Facility: [facility] Address: [address] [place] [address] Performed By: #### 2 4323-8 ####[facility]ENTERWNCLIA [id number] [place] [address] [place] Chloride [Moles/Vol] 105 mmol/L Normal 97-105 [facility] Comment on above: Order Comment: Speci men Type: BLOOD SPECIMENOrdering Facility: [facility] Address: [address] [place] [address] Performed By: #### 2 4323-8 ####[facility] MILLTOWNCLIA [id number] [place] [address] [place] CO2 [Moles/Vol] 29 mmol/L Normal 22-30 [facility] Comment on above: Order Comment: Speci men Type: BLOOD SPECIMENOrdering Facility: [facility] Address: [address] [place] [address] Performed By: #### 2 4323-8 ####[facility] MILLTOWNCLIA [id number] [place] [address] [place] Creatinine [Mass/Vol] 0.89 mg/dL Normal 0.58-0.96 [facility] Comment on above: Order Comment: Kasandra greene Type: BLOOD SPECIMENOrdering Facility: [facility] Address: [address] [place] [address] Performed By: #### 2 4323-8 ####[facility] [id number] [place] [address] [place] Creatinine and Glomerular filtration rate.predicted panel (S/P/Bld) 68 mL/min/1.73m??? Normal >=60 [facility] Comment on above: Order Comment: Kasandra greene Type: BLOOD SPECIMENOrdering Facility: [facility] Address: [address] [place] [address] Result Comment: Zahida mated Glomerular Filtration Rate (eGFR) is calculated using the 2020 CKD-EPI creatinine equation. This equation utilizes serum creatinine, sex, and age as parameters. The creatinine assay has traceable calibration to isotope dilution-mass spectrometry. Refer to KDIGO guidelines for clinical interpretation. In patients with unstable renal function, e.g. those with acute kidney injury, the eGFR may not accurately reflect actual GFR. Performed By: #### 2 4323-8 ####[facility] [id number] [place] [address] [place] Glucose [Mass/Vol] 129 mg/dL High 74-99 [facility] Comment on above: Order Comment: Kasandra greene Type: BLOOD SPECIMENOrdering Facility: [facility] Address: [address] [place] [address] Result Comment: The [place] Diabetes Association (ADA) provides guidance for cutoff [...] Standards of Medical Care in Diabetes 2016, [place] [employer] Association. Diabetes Care. 2016.39(Suppl 1). Performed By: #### 2 4323-8 ####[facility] MILLTOWNCLIA [id number] [place] [address] [place] Potassium [Moles/Vol] 3.8 mmol/L Normal 3.7-5.1 [facility] Comment on above: Order Comment: Speci men Type: BLOOD SPECIMENOrdering Facility: [facility] Address: [address] [place] [address] Performed By: #### 2 4323-8 ####[facility]ENTERWNCLIA [id number] [place] [address] [place] Protein [Mass/Vol] 6.2 g/dL Low 6.3-8.0 [facility] Comment on above: Order Comment: Speci men Type: BLOOD SPECIMENOrdering Facility: [facility] Address: [address] [place] [address] Performed By: #### 2 4323-8 ####[facility] EASTNCLIA [id number] [place] [address] [place] Sodium [Moles/Vol] 140 mmol/L Normal 136-144 [facility] Comment on above: Order Comment: Speci men Type: BLOOD SPECIMENOrdering Facility: [facility] Address: [address] [place] [address] Performed By: #### 2 4323-8 ####[facility] MILLTOWNCLIA [id number] [place] [address] [place] Urea nitrogen [Mass/Vol] 20 mg/dL Normal 7-21 [facility] Comment on above: Order Comment: Speci men Type: BLOOD SPECIMENOrdering Facility: [facility] Address: [address] [place] [address] Performed By: #### 2 4323-8 ####[facility] MILLWNCLIA [id number] [place] [id number] [place] ESR Westergren method (Bld) [Velocity]on 03-19-2024 ESR (Bld) [Velocity] 37 mm/h High 0-20 [facility] Comment on above: Order Comment: Speci men Type: BLOOD SPECIMENOrdering Facility: [facility] Address: [address] [place] [address] Performed By: #### 4 537-7 ####[facility] [id number] [facility]ENTERDESK [id number] [id number] [place] US CAROTID ARTERIES [facility] LABon 03-14-2024 [facility] CAROTID ARTERIES [facility] Non-Invasive Vascular Laboratory [facility] Carotid Duplex Bilateral/Complete Date of service/time: 03/14/2024 2:42:11 PM Name: MRS. KAREN FALK Date of : 1950 Age: 73 years Gender: F Clinical Indication Tia G45.4. TECHNIQUE -------- A carotid duplex ultrasound examination was performed, including grayscale imaging and color Doppler and spectral Doppler examination of the below mentioned arteries. FINDINGS -------- RIGHT SIDE Common carotid artery: Origin: PSV: 87 cm/s. EDV: 15 cm/s. Proximal: PSV: 81 cm/s. EDV: 11 cm/s. Mid: PSV: 73 cm/s. EDV: 12 cm/s. Distal: PSV: 59 cm/s. EDV: 15 cm/s. Internal carotid artery: Origin: PSV: 58 cm/s. EDV: 13 cm/s. Proximal: PSV: 98 cm/s. EDV: 26 cm/s. Mid: PSV: 101 cm/s. EDV: 28 cm/s. Distal: PSV: 95 cm/s. EDV: 23 cm/s. ICA/CCA Ratio: 1.7 External carotid artery: Proximal: PSV: 61 cm/s. EDV: 7 cm/s. Subclavian artery: Origin: PSV: 109 cm/s. EDV: 0 cm/s. Vertebral artery: PSV: 45 cm/s. EDV: 12 cm/s. LEFT SIDE Common carotid artery: Proximal: PSV: 79 cm/s. EDV: 15 cm/s. Mid: PSV: 100 cm/s. EDV: 19 cm/s. Distal: PSV: 80 cm/s. EDV: 20 cm/s. Internal carotid artery: Origin: PSV: 51 cm/s. EDV: 11 cm/s. Proximal: PSV: 53 cm/s. EDV: 14 cm/s. Mid: PSV: 55 cm/s. EDV: 17 cm/s. Distal: PSV: 50 cm/s. EDV: 17 cm/s. ICA/CCA Ratio: 0.7 External carotid artery: Proximal: PSV: 45 cm/s. EDV: 10 cm/s. Subclavian artery: Proximal: PSV: 107 cm/s. EDV: 0 cm/s. Vertebral artery: PSV: 35 cm/s. EDV: 8 cm/s. IMPRESSION RIGHT SIDE Internal carotid artery: 20-39% stenosis. Vertebral artery: Patent and antegrade flow noted. Subclavian artery: Patent. LEFT SIDE Internal carotid artery: 20-39% stenosis. Vertebral artery: Patent and antegrade flow noted. Subclavian artery: Patent. Technologist: Vibha Mario T Ordering physician: JOSE STEWART Interpreting physician: Kiran Alvarado MD Final CC [employer] [facility] Image : [id number] See Link below for Image Normal [facility] US Carotid arteries - julio oliveros 03-14-2024 Non-Invasive Vascular Laboratory [facility] Carotid Duplex Bilateral/Complete Date of service/time: 03/14/2024 2:42:11 PM Name: MRS. KAREN FALK Date of : 1950 Age: 73 years Gender: F Clinical Indication Tia G45.4. TECHNIQUE -------- A carotid duplex ultrasound examination was performed, including grayscale imaging and color Doppler and spectral Doppler examination of the below mentioned arteries. FINDINGS -------- RIGHT SIDE Common carotid artery: Origin: PSV: 87 cm/s. EDV: 15 cm/s. Proximal: PSV: 81 cm/s. EDV: 11 cm/s. Mid: PSV: 73 cm/s. EDV: 12 cm/s. Distal: PSV: 59 cm/s. EDV: 15 cm/s. Internal carotid artery: Origin: PSV: 58 cm/s. EDV: 13 cm/s. Proximal: PSV: 98 cm/s. EDV: 26 cm/s. Mid: PSV: 101 cm/s. EDV: 28 cm/s. Distal: PSV: 95 cm/s. EDV: 23 cm/s. ICA/CCA Ratio: 1.7 External carotid artery: Proximal: PSV: 61 cm/s. EDV: 7 cm/s. Subclavian artery: Origin: PSV: 109 cm/s. EDV: 0 cm/s. Vertebral artery: PSV: 45 cm/s. EDV: 12 cm/s. LEFT SIDE Common carotid artery: Proximal: PSV: 79 cm/s. EDV: 15 cm/s. Mid: PSV: 100 cm/s. EDV: 19 cm/s. Distal: PSV: 80 cm/s. EDV: 20 cm/s. Internal carotid artery: Origin: PSV: 51 cm/s. EDV: 11 cm/s. Proximal: PSV: 53 cm/s. EDV: 14 cm/s. Mid: PSV: 55 cm/s. EDV: 17 cm/s. Distal: PSV: 50 cm/s. EDV: 17 cm/s. ICA/CCA Ratio: 0.7 External carotid artery: Proximal: PSV: 45 cm/s. EDV: 10 cm/s. Subclavian artery: Proximal: PSV: 107 cm/s. EDV: 0 cm/s. Vertebral artery: PSV: 35 cm/s. EDV: 8 cm/s. IMPRESSION RIGHT SIDE Internal carotid artery: 20-39% stenosis. Vertebral artery: Patent and antegrade flow noted. Subclavian artery: Patent. LEFT SIDE Internal carotid artery: 20-39% stenosis. Vertebral artery: Patent and antegrade flow noted. Subclavian artery: Patent. Technologist: Vibha Mario RVT Ordering physician: JOSE STEWART Interpreting physician: Kiran Alvarado MD Final See Link below for Image [facility] CARDIOLOGY [facility] URINALYSIS, REFLEX MICROSCOP ICon 03-13-2024 BACTERIA UL >9821 High Negative [facility] Comment on above: Order Comment: Speci men Type: URINE SPECIMENOrdering Facility: [facility] Address: [address] [place] [address] Performed By: #### L [id number] ####[facility] [id number] [place] [address] [place] Bilirubin Ql (U) Negative Normal Negative [facility] Comment on above: Order Comment: Speci men Type: URINE SPECIMENOrdering Facility: [facility] Address: [address] [place] [address] Performed By: #### L [id number] ####[facility] LABCLIA [id number] [place] [address] [place] Clarity (Unsp spec) Clear Normal Clear [facility] Comment on above: Order Comment: Speci men Type: URINE SPECIMENOrdering Facility: [facility] Address: [address] [place] [address] Performed By: #### L [id number] ####[facility] LABCLIA [id number] [place] [address] [place] Color (U) Yellow Normal Yellow [facility] Comment on above: Order Comment: Speci men Type: URINE SPECIMENOrdering Facility: [facility] Address: [address] [place] [address] Performed By: #### L [id number] ####[facility] LABCLIA [id number] [address] Epithelial cells LM.HPF (Urine sed) [#/Area] None Seen Normal [facility] Comment on above: Order Comment: Speci men Type: URINE SPECIMENOrdering Facility: [facility] Address: [address] [place] [address] Performed By: #### L [id number] ####[facility] LABCLIA [id number] [address] [place] Glucose Test strip (U) [Mass/Vol] Negative Normal Negative [facility] Comment on above: Order Comment: Speci men Type: URINE SPECIMENOrdering Facility: [facility] Address: [address] [place] [address] Performed By: #### L [id number] ####[facility] LABCLIA [id number] [place] [address] [place] Hemoglobin Ql (U) Negative Normal Negative [facility] Comment on above: Order Comment: Speci men Type: URINE SPECIMENOrdering Facility: [facility] Address: [address] [place] [address] Performed By: #### L [id number] ####[facility] LABCLIA [id number] [place] [address] [place] Hyaline casts (Urine sed) [#/Area] 1-3 /LPF Abnormal 0 /LPF [facility] Comment on above: Order Comment: Speci men Type: URINE SPECIMENOrdering Facility: [facility] Address: [address] [place] [address] Performed By: #### L [id number] ####[facility] LABCLIA [id number] [place] [address] [place] Ketones Ql (U) Negative Normal Negative [facility] Comment on above: Order Comment: Speci men Type: URINE SPECIMENOrdering Facility: [facility] Address: [facility] [place] [address] Performed By: #### L [id number] ####[facility] LABCLIA [id number] [place] [address] [place] Leukocyte esterase Test strip Ql (U) 2+ Abnormal Negative [facility] Comment on above: Order Comment: Speci men Type: URINE SPECIMENOrdering Facility: [facility] Address: [address] [place] [address] Performed By: #### L [id number] ####[facility] LABCLIA [id number] [place] [address] [place] Nitrite Ql (U) Negative Normal Negative [facility] Comment on above: Order Comment: Speci men Type: URINE SPECIMENOrdering Facility: [facility] Address: [address] [place] [address] Performed By: #### L [id number] ####[facility] LABCLIA [id number] [place] [address] [place] pH (U) 6.0 [pH] Normal <8.5 [facility] Comment on above: Order Comment: Speci men Type: URINE SPECIMENOrdering Facility: [facility] Address: [address] [place] [address] Performed By: #### L [id number] ####[facility] LABCLIA [id number] [place] [address] [place] Protein (U) [Mass/Vol] Negative Normal Negative [facility] Comment on above: Order Comment: Speci men Type: URINE SPECIMENOrdering Facility: [facility] Address: [address] [place] [address] Performed By: #### L [id number] ####[facility] LABCLIA [id number] [place] [id number] [place] [address] RBC LM.HPF (Urine sed) [#/Area] 0-2 /HPF Normal 0-2 /HPF [facility] Comment on above: Order Comment: Speci men Type: URINE SPECIMENOrdering Facility: [facility] Address: [address] [place] [address] Performed By: #### L [id number] ####[facility] [id number] [place] [address] [place] Specific gravity (U) [Rel density] 1.017 Normal 1.005-1.030 [facility] Comment on above: Order Comment: Speci men Type: URINE SPECIMENOrdering Facility: [facility] Address: [address] [place] [address] Performed By: #### L [id number] ####[facility] [id number] [place] [address] [place] Urobilinogen Ql (U) 0.2 EU/dL Normal 0.2-1.0 EU/dL Cl [facility] Comment on above: Order Comment: Speci men Type: URINE SPECIMENOrdering Facility: [facility] Address: [address] [place] [address] Performed By: #### L [id number] ####[facility] [id number] [place] [address] [place] WBC LM.HPF (Urine sed) [#/Area] /[HPF] Abnormal 0-5 /HPF [facility] Comment on above: Order Comment: Speci men Type: URINE SPECIMENOrdering Facility: [facility] Address: [address] [place] [address] Performed By: #### L [id number] ####[facility]IA [id number] [place] [address] [place] CBC W Auto Differential pane l (Bld)on 03-12-2024 Basophils (Bld) [#/Vol] 0.06 10*3/uL Normal <0.11 [facility] Comment on above: Order Comment: Speci men Type: BLOOD SPECIMENOrdering Facility: [facility] Address: [address] [place] [address] Performed By: #### 5 7021-8 ####[facility] EASTNCLIA [id number] [place] [address] [place] Basophils/100 WBC (Bld) 0.5 % Normal [facility] Comment on above: Order Comment: Speci men Type: BLOOD SPECIMENOrdering Facility: [facility] Address: [address] [place] [address] Performed By: #### 5 7021-8 ####[facility]ITALA [id number] [place] [address] [place] Differential cell count method Nom (Bld) Auto Normal [facility] Comment on above: Order Comment: Speci men Type: BLOOD SPECIMENOrdering Facility: [facility] Address: [address] [place] [address] Performed By: #### 5 7021-8 ####[facility]ITALA [id number] [place] [address] [place] Eosinophils (Bld) [#/Vol] 0.14 10*3/uL Normal <0.46 [facility] Comment on above: Order Comment: Speci men Type: BLOOD SPECIMENOrdering Facility: [facility] Address: [address] [place] [address] Performed By: #### 5 7021-8 ####[facility] EASTNCLIA [id number] [place] [address] [place] Eosinophils/100 WBC (Bld) 1.2 % Normal [facility] Comment on above: Order Comment: Speci men Type: BLOOD SPECIMENOrdering Facility: [facility] Address: [address] [place] [address] Performed By: #### 5 7021-8 ####[facility] CAR[facility]ELITALENOREA [id number] [place] [address] [place] Erythrocyte distribution width (RBC) [Ratio] 17.3 % High 11.5-15.0 [facility] Comment on above: Order Comment: Speci men Type: BLOOD SPECIMENOrdering Facility: [facility] Address: [address] [place] [address] Performed By: #### 5 7021-8 ####[facility] EASTBALJIT [id number] [place] [address] [place] Hematocrit (Bld) [Volume fraction] 41.4 % Normal 36.0-46.0 [facility] Comment on above: Order Comment: Speci men Type: BLOOD SPECIMENOrdering Facility: [facility] Address: [address] [place] [address] Performed By: #### 5 7021-8 ####[facility] [id number] [place] [address] [place] Hemoglobin (Bld) [Mass/Vol] 13.0 g/dL Normal 11.5-15.5 [facility] Comment on above: Order Comment: Speci men Type: BLOOD SPECIMENOrdering Facility: [facility] Address: [address] [place] [address] Performed By: #### 5 7021-8 ####[facility]PITALCHAPARRITA [id number] [place] [address] [place] Immature granulocytes (Bld) [#/Vol] 0.10 10*3/uL High <0.10 [facility] Comment on above: Order Comment: Speci men Type: BLOOD SPECIMENOrdering Facility: [facility] Address: [address] [place] [address] Performed By: #### 5 7021-8 ####[facility] EASTNCLIArcelia [id number] [place] [address] [place] Immature granulocytes/100 WBC (Bld) 0.8 % Normal [facility] Comment on above: Order Comment: Speci men Type: BLOOD SPECIMENOrdering Facility: [facility] Address: [address] [place] [address] Performed By: #### 5 7021-8 ####[facility] EASTNCA [id number] [place] [address] [place] Lymphocytes (Bld) [#/Vol] 2.01 10*3/uL Normal 1.00-4.00 [facility] Comment on above: Order Comment: Speci men Type: BLOOD SPECIMENOrdering Facility: [facility] Address: [address] [place] [address] Performed By: #### 5 7021-8 ####[facility] [id number] [place] [address] [place] Lymphocytes/100 WBC (Bld) 17.0 % Normal [facility] Comment on above: Order Comment: Speci men Type: BLOOD SPECIMENOrdering Facility: [facility] Address: [address] [place] [address] Performed By: #### 5 7021-8 ####[facility] [facility] [id number] [place] [address] [place] MCH (RBC) [Entitic mass] 29.0 pg Normal 26.0-34.0 [facility] Comment on above: Order Comment: Speci men Type: BLOOD SPECIMENOrdering Facility: [facility] Address: [address] [place], [place] [address] Performed By: #### 5 7021-8 ####[facility] [id number] [place] [address] [place] MCHC (RBC) [Mass/Vol] 31.4 g/dL Normal 30.5-36.0 [facility] Comment on above: Order Comment: Speci men Type: BLOOD SPECIMENOrdering Facility: [facility] Address: [address] [place] [address] Performed By: #### 5 7021-8 ####[facility] [id number] [place] [address] [place] MCV (RBC) [Entitic vol] 92.4 fL Normal 80.0-100.0 [facility] Comment on above: Order Comment: Speci men Type: BLOOD SPECIMENOrdering Facility: [facility] Address: [address] [place] [address] Performed By: #### 5 7021-8 ####[facility] [id number] [place] [address] [place] Monocytes (Bld) [#/Vol] 1.40 10*3/uL High <0.87 [facility] Comment on above: Order Comment: Speci men Type: BLOOD SPECIMENOrdering Facility: [facility] Address: [address] [place] [address] Performed By: #### 5 7021-8 ####[facility] [id number] [place] [address] [place] Monocytes/100 WBC (Bld) 11.9 % Normal [facility] Comment on above: Order Comment: Speci men Type: BLOOD SPECIMENOrdering Facility: [facility] Address: [address] [place] [address] Performed By: #### 5 7021-8 ####[facility] [id number] [place] [address] [place] Neutrophils (Bld) [#/Vol] 8.09 10*3/uL High 1.45-7.50 [facility] Comment on above: Order Comment: Speci men Type: BLOOD SPECIMENOrdering Facility: [facility] Address: [address] [place] [address] Performed By: #### 5 7021-8 ####[facility] [id number] [place] [address] [place] Neutrophils/100 WBC (Bld) 68.6 % Normal [facility] Comment on above: Order Comment: Speci men Type: BLOOD SPECIMENOrdering Facility: [facility] Address: [address] [place] [address] Performed By: #### 5 7021-8 ####[facility] [id number] [place] [address] [place] Nucleated RBC (Bld) [#/Vol] 10*3/uL Normal <0.01 [facility] Comment on above: Order Comment: Speci men Type: BLOOD SPECIMENOrdering Facility: [facility] Address: [address] [place] [address] Performed By: #### 5 7021-8 ####[facility] [id number] [place] [address] [place] Nucleated RBC/100 WBC (Bld) [Ratio] 0.0 /100 WBC Normal [facility] Comment on above: Order Comment: Speci men Type: BLOOD SPECIMENOrdering Facility: [facility] Address: [address] [place] [address] Performed By: #### 5 7021-8 ####[facility] [id number] [place] [address] [place] Platelet mean volume (Bld) [Entitic vol] 10.7 fL Normal 9.0-12.7 [facility] Comment on above: Order Comment: Speci men Type: BLOOD SPECIMENOrdering Facility: [facility] Address: [address] [place] [address] Performed By: #### 5 7021-8 ####[facility] [id number] [place] [address] [place] Platelets (Bld) [#/Vol] 345 10*3/uL Normal 150-400 [facility] Comment on above: Order Comment: Speci men Type: BLOOD SPECIMENOrdering Facility: [facility] Address: [address] [place] [address] Performed By: #### 5 7021-8 ####[facility] [id number] [place] [address] [place] RBC (Bld) [#/Vol] 4.48 10*6/uL Normal 3.90-5.20 [facility] Comment on above: Order Comment: Speci men Type: BLOOD SPECIMENOrdering Facility: [facility] Address: [address] [place] [address] Performed By: #### 5 7021-8 ####[facility]CA [id number] [place] [address] [place] WBC (Bld) [#/Vol] 11.80 10*3/uL High 3.70-11.00 [facility] Comment on above: Order Comment: Speci men Type: BLOOD SPECIMENOrdering Facility: [facility] Address: [address] [place] [address] Performed By: #### 5 7021-8 ####[facility] [id number] [place] [address] [place] Comprehensive metabolic 2000 panelon 03-12-2024 Albumin [Mass/Vol] 3.6 g/dL Low 3.9-4.9 [facility] Comment on above: Order Comment: Speci men Type: BLOOD SPECIMEN [facility]ing [facility] Address: [address] [place] [address] Performed By: #### 4 537-7 #### [facility] CLIA [id number] [address] [place] [address] [id number] [place] [address] [place] ALP [Catalytic activity/Vol] 105 U/L Normal 34-123 [facility] Comment on above: Order Comment: Speci men Type: BLOOD SPECIMEN [facility]ing [facility]: [facility] Address: [address] [place] [address] Performed By: #### 4 537-7 #### [facility] CLIA [id number] [address] [place] [address] [place] ALT [Catalytic activity/Vol] 16 U/L Normal 7-38 [facility] Comment on above: Order Comment: Speci men Type: BLOOD SPECIMEN [facility]ing Facility: [facility] Address: [address] [place] [address] Performed By: #### 4 537-7 #### [facility] CLIA [id number] [address] [place] [address] [place] Anion gap [Moles/Vol] 6 mmol/L Low 9-18 [facility] Comment on above: Order Comment: Speci men Type: BLOOD SPECIMEN [facility]ing [facility]: [facility] Address: [address] [place] [address] Performed By: #### 4 537-7 #### [facility] CLIA [id number] [address] [place] [address] [place] AST [Catalytic activity/Vol] 14 U/L Normal 13-35 [facility] Comment on above: Order Comment: Speci men Type: BLOOD SPECIMEN [facility] Address: [address] [place] [address] Performed By: #### 4 537-7 #### [facility] CLIA [id number] [address] [place] [address] [place] Bilirubin [Mass/Vol] 0.6 mg/dL Normal 0.2-1.3 [facility] Comment on above: Order Comment: Speci men Type: BLOOD SPECIMEN [facility]: [facility] Address: [address] [place] [address] Performed By: #### 4 537-7 #### [facility] CLIA [id number] [address] [place] [address] [place] Calcium [Mass/Vol] 9.8 mg/dL Normal 8.5-10.2 [facility] Comment on above: Order Comment: Speci men Type: BLOOD SPECIMEN [facility] Address: [address] [place] [address] Performed By: #### 4 537-7 #### [facility] CLIA [id number] [address] [place] [address] [place] Chloride [Moles/Vol] 104 mmol/L Normal 97-105 [facility] Comment on above: Order Comment: Speci men Type: BLOOD SPECIMEN [facility]: [facility] Address: [address] [place] [address] Performed By: #### 4 537-7 #### [facility] CLIA [id number] [address] [place] [address] [place] CO2 [Moles/Vol] 30 mmol/L Normal 22-30 [facility] Comment on above: Order Comment: Speci men Type: BLOOD SPECIMEN [facility]: [facility] Address: [address] [place] [address] Performed By: #### 4 537-7 #### [facility] CLIA [id number] [address] [place] [address] [place] Creatinine [Mass/Vol] 0.78 mg/dL Normal 0.58-0.96 [facility] Comment on above: Order Comment: Speci men Type: BLOOD SPECIMEN [facility]: [facility] Address: [address] [place] [address] Performed By: #### 4 537-7 #### [facility] CLIA [id number] [address] [place] [address] [place] Creatinine and Glomerular filtration rate.predicted panel (S/P/Bld) 79 mL/min/1.73m??? Normal >=60 [facility] Comment on above: Order Comment: Kasandra greene Type: BLOOD SPECIMEN [facility]: [facility] Address: [address] [place] [address] Result Comment: Zahida mated Glomerular Filtration Rate (eGFR) is calculated using the 2020 CKD-EPI creatinine equation. This equation utilizes serum creatinine, sex, and age as parameters. The creatinine assay has traceable calibration to isotope dilution-mass spectrometry. Refer to KDIGO guidelines for clinical interpretation. In patients with unstable renal function, e.g. those with acute kidney injury, the eGFR may not accurately reflect actual GFR. Performed By: #### 4 537-7 #### [facility] CLIA [id number] [address] [place] [address] [place] Glucose [Mass/Vol] 109 mg/dL High 74-99 [facility] Comment on above: Order Comment: Kasandra greene Type: BLOOD SPECIMEN [facility] Address: [address] [place] [address] Result Comment: The [place] Diabetes Association (ADA) provides guidance for cutoff [...] Standards of Medical Care in Diabetes 2016, [place] [employer] Association. Diabetes Care. 2016.39(Suppl 1). Performed By: #### 4 537-7 #### [facility] CLIA [id number] [address] [place] [address] [place] Potassium [Moles/Vol] 3.7 mmol/L Normal 3.7-5.1 [facility] Comment on above: Order Comment: Kasandra greene Type: BLOOD SPECIMEN [facility] Address: [address] [place] [address] Performed By: #### 4 537-7 #### [facility] CLIA [id number] [address] [place] [address] [place] Protein [Mass/Vol] 6.3 g/dL Normal 6.3-8.0 [facility] Comment on above: Order Comment: Speci men Type: BLOOD SPECIMEN [facility] Address: [address] [place] [address] Performed By: #### 4 537-7 #### [facility] CLIA [id number] [address] [place] [address] [place] Sodium [Moles/Vol] 140 mmol/L Normal 136-144 [facility] Comment on above: Order Comment: Speci men Type: BLOOD SPECIMEN [facility] Address: [address] [place] [address] Performed By: #### 4 537-7 #### [facility] CLIA [id number] [address] [place] [address] [place] Urea nitrogen [Mass/Vol] 14 mg/dL Normal 7-21 [facility] Comment on above: Order Comment: Speci men Type: BLOOD SPECIMEN [facility] Address: [address] [place] [address] Performed By: #### 4 537-7 #### [facility] CLIA [id number] [address] [place] [address] [place] ESR Westergren method (Bld) [Velocity]on 03-12-2024 ESR (Bld) [Velocity] 40 mm/h High 0-20 [facility] Comment on above: Order Comment: Speci men Type: BLOOD SPECIMEN [facility] Address: [address] [place] [address] Performed By: #### 4 537-7 #### [facility] CLIA [id number] [address] [place] [address] [place] CNCOon 03-06-2024 CNCO HNO ID: [id number] Author: COORDINATOR, MAMMOGRAPHY, ? Service: ? Author Type: Physician Type: Letter Filed: 03/06/2024 09:18 Note Text: March 06, 2024 PID: [id number] Karen Falk [address] [place] [address] Dear Ms. Falk, We are pleased to inform you that the results of your recent breast imaging exam on 03/05/2024 are normal. Early detection of cancer is very important. We also understand recommendations regarding breast cancer screening are controversial. Please discuss with your primary care provider which strategy is best for you and whether a mammogram is right for you. Your imaging studies and report will be kept on file at [facility] as part of your permanent medical record and are available for your continuing care. Thank you for allowing us to help in meeting your health care needs. Sincerely, Dr. Berger Interpreting Radiologist [facility] (Normal over 40) Normal [facility] CNOVon 03-06-2024 CNOV Office Visit (FAMPWS ) -------- DEYADEJUANKAREN A ([id number]) 1950 F [facility] Date Time Provider Department 03/06/24 11:00 AM JOSE STEWART FAMPWS During your visit today, we recorded the following information about you: Temperature Pulse Respiration Blood pressure 98.7 degrees 73/minute 16/minute 120/64 Jose Stewart MD 03/06/2024 11:26 AM Signed Chief Complaint Patient presents with: Hospital F/U HPI Karenreece Falk is a 73 year old female who presents here today for Hospital Discharge Follow up. Accompanied today by . Patient admitted to [facility] from 02/28 to 03/01 after presenting to the ER with confusion associated with nausea and billious vomiting. Workup in the hospital and ER was largely unremarkable including MRI brain, CXR, CTA chest, echo, CBC, TSH, ammonia, CMP, procacalcitonin. Potassium slightly low at 3.4. CRP elevated to 33.2 with normal ESR. Symptoms improved siginficantly the following day and was discharged home without need for PT/OT. Diagnosed with transient global amnesia. Since discharge, patient has not had any recurrent confusion and her nausea and vomiting has resolved. Back to her baseline in regards to her ADLs. Taking all medications as prescribed. Denies headache, vision changes, slurred speech, facial droop, numbness/tingling/weakne ss. Needs refill on her potassium supplement. Will be out in 4 days. Past medical history, appointments, medications, allergies reviewed. Previous Medical History PAST MEDICAL HISTORY Diagnosis Date Acute gastritis without mention of hemorrhage Anticoagulant long-term use apixaban (Eliquis); indication: stroke prevention AF Arrhythmia At risk for stroke [id number] = 4 (HTN, age, CAD, female gender) Benign neoplasm of colon Breast cancer, stage 4 (HCC) 2007 right breast - chemo and radiation Coronary artery disease involving [place] coronary artery of [place] heart without angina pectoris Diaphragmatic hernia without [...] persistent over time; s/p AF catheter ablation 05/15/2019. Not needing anticoagulation. Personal history of colonic polyps Pulmonary fibrosis (HCC) Dr. 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 Jackson APPENDECTOMY CARDIAC CATH Left 05/15/2008 preserved LV [...] stent to mid LAD; PTCA to D1; [facility] LAP ADJUSTABLE GASTRIC BAND lapband 2006 released [...] Extraction with PC IOL (Restor) right eye Family History FAMILY HISTORY Problem Relation Age of Onset (more content not included)... Normal [facility] SCREENINGon 03-05-2024 JO ANN SCREENING * * *Final Report* * * DATE OF EXAM: Mar 05 2024 12:39PM ALICE 0581 - [facility] SCREENING / PROCEDURE REASON: multiple diagnoses * * * * Physician Interpretation * * * * RESULT: #[id number] - [facility] SCREENING BILATERAL DIGITAL SCREENING MAMMOGRAM WITH CAD: 03/05/2024 HISTORY: Multiple Diagnoses / Screening Mammogram-Patient reports NO symptoms. / /Patient has signed release for outside images that is scanned into syngo /SEE TECH NOTE. RESULT: TECHNIQUE: The study was acquired using full field digital technology and interpreted from soft copy. Current study was also evaluated with a Computer Aided Detection (CAD). No prior exams were available for comparison. The breasts are almost entirely fatty. There are benign post operative findings in both breasts. No significant masses, calcifications, or other findings are seen in either breast. IMPRESSION: BENIGN FINDING There is no mammographic evidence of malignancy. A 1 year screening mammogram is recommended. Alistair colón/jennifer:03/06/2024 09:18:25 Sole Polisher(s): RT Robert(R)(M), [facility] letter sent: Normal over 40 Mammogram BI-RADS: 2 Benign finding Multiple national specialty organizations have released breast cancer screening guidelines for women at average risk for developing breast cancer - guidelines that are based on both evidence and opinion, yet differ on when to start and how often to screen for breast cancer. With representation from Breast Imaging, Internal Medicine, Women's Health, Family Medicine, and Medical/Surgical Oncology, the [facility] has carefully reviewed the data and reached the following consensus: 1) All women should engage in shared decision-making with their providers to decide when to start and how often to screen; 2) All women should have the opportunity to start screening mammography at age 40; 3) For women ages 45-55, we recommend annual screening mammograms; 4) For women ages 55 and over, we support both the transition from an annual to a biennial interval if this aligns more with patient's values and preferences, or continuation with annual screening; 5) All women should discuss with their providers when to stop screening mammograms. Underwriting Service Representative: Jennifer Transcribe Date/Time: Mar 05 2024 11:23A Dictated by: ALISTAIR BERGER MD This examination was interpreted and the report reviewed and electronically signed by: ALISTAIR BERGER MD on Mar 06 2024 9:18AM EST [id number] Normal [facility] CNPChristel 03-02-2024 CNPN Telephone (RHEUMN) -------- KAREN FALK ([id number]) 1950 F [facility] Date Time Provider Department 03/02/24 AMOR STAPLETON During your visit today, we recorded the following information about you: Patrick Traore 03/02/2024 10:50 AM Signed Pt identified by name and date of Pt informed me that she was released from the hospital on 03/01/24 due to a mini-stroke Pt was scheduled for an infusion 02/29/[address] [facility] but missed infusion appointment due to pt was in hospital Pt states that she usually have infusions every 6 months Pt is scheduled for infusion on 08/15/24 Pt wants to know if she should have infusion sooner than 08/15/24 Pt could be reached at [phone] Amor Stapleton MD 03/08/2024 1:33 PM Signed Please call patient to ask about why she was hospitalized and what treatment, if any, has been given to her so we can decide about the infusion. Thanks Electronically Signed by Amor Guzman MD, MPH Zenia Herrera 03/08/2024 3:26 PM Signed Spoke with patient and rescheduled missed infusion. Adjusted balance of infusion schedule. Zenia Herrera Allergies As of Date: 03/02/2024 (No Known Allergies) Date Reviewed: 12/01/2023 Reviewed by: Evonne Castro LPN - Fully Assessed Reason for Visit: Patient Question [5687] Appointment [186] Prescriptions as of 03/08/2024 - lipase/protease/amylase (ZENPEP ORAL) Take by mouth two times a day. Patient currently using sample pack and finding it effective for her chronic diarrhea - potassium chloride (K-TAB) 10 mEq tablet Take 2 tablets by mouth two times a day. - OXYGEN, HOME THERAPY, Inhale 2 L/min as instructed as directed. 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 - Artificial Tear, Hypromellose, (GENTEAL TEARS SEVERE GEL) 0.3 % gel Use 1 Drop in both eyes daily at bedtime. - aspirin, enteric coated (ASPIRIN, ENTERIC COATED) 81 mg EC tablet Take 81 mg by mouth once daily. - Cholecalciferol, Vitamin D3, 50 mcg (2,000 unit) cap Take by mouth. - metoprolol tartrate, short acting, (LOPRESSOR) 25 mg tablet Take 12.5 mg by mouth twice daily. - atorvastatin calcium(LIPITOR 10 MG TAB) Take one(1) tablet daily. - acetaminophen(TYLENOL 325 MG TAB) Take two(2) tablets every four(4) to six(6) hours as needed for pain. Problem List As Of Date 03/02/2024 Noted Resolved Acute gastritis without mention of hemorrhage [*08/30/2006 05/15/2019 DIAPHRAGMATIC HERNIA [K44.9] 08/30/2006 Breast cancer, stage 4 (HCC) [C50.919] 09/16/2009 10/27/2015 Tear film insufficiency, unspecified - Both Eye*08/28/2014 08/26/2016 Lens replaced by other means - Both Eyes [Z96.1]08/28/2014 08/26/2016 Other vitreous opacities - Both Eyes [H43.399] 08/28/2014 08/26/2016 Hyperlipidemia [E78.5] 08/28/2014 Floater, vitreous [H43.399] 08/22/2015 08/26/2016 Dry eye syndrome [H04.129] 08/22/2015 08/26/2016 Pseudophakia of both eyes [Z96.1] 08/22/2015 Colon cancer screening [Z12.11] 09/11/2015 09/11/2015 Vitreous floaters of both eyes [H43.393] 08/26/2016 Dry eye syndrome of both eyes [H04.123] 08/26/2016 Personal history of breast cancer [Z85.3] 01/24/2017 Punctate keratitis, 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] 08/31/2017 History of colonic polyps [Z86.010] 07/24/2018 Family history of colon cancer in father [Z80.0]07/24/2018 Obstructive sleep apnea [G47.33] 08/30/2018 08/20/2021 Shortness of breath [R06.02] 10/27/2016 Paroxysmal atrial fibrillation (HCC) [I48.0] 03/14/2019 05/15/2019 Palpitations [R00.2] 03/14/2019 Nonrheumatic mitral (valve) insufficiency [I34.*03/14/2019 Nonrheumatic tricuspid (valve) insufficiency [I*03/14/2019 Obesity, Class I, BMI 30-34.9 [E66.9] 03/19/2019 At risk for stroke [Z91.89] Anticoagulant long-term use [Z79.01] Persistent atrial fibrillation (HCC) [I48.19] 05/15/2019 05/31/2023 Status post catheter ablation of atrial fibrill* 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*07/22/2021 Coronary artery disease involving [place]*08/20/2021 Essential hypertension [I10] 10/27/2016 History of appendectomy [Z90.49] 08/20/2021 History of bariatric surgery [Z98.84] 08/20/2021 History of cataract extraction [Z98.49] 08/20/2021 History of tonsillectomy [Z90.89] 08/20/2021 Benign neoplasm of colon [D12.6] 12/01/2023 Esophageal reflux [K21.9] 12/01/2023 Pulmonary fibrosis (HCC) [J84.10] 12/01/2023 Osteoporosis, unspecified [M81.0] 12/01/2023 Encounter Status:Closed by ZENIA HERRERA on 03/08/24 [facility] Samara 02-24-2024 CNPN Telephone (FAMPWS) -------- KAREN FALK ([id number]) 1950 F [facility] Date Time Provider Department 02/24/24 JOSE STEWART During your visit today, we recorded the following information about you: Filiberto Suarez LPN 02/24/2024 1:26 PM Signed Pt called for mammogram orders. Pt reports she was having them done at [facility] when her provider was at [facility]. She now has a provider here and is willing to get done here. Please advise pt when orders are in and help get apt booked. On problem list it mentions personal history of breast cancer. MYKEL Lainez Christopher B, MD 02/27/2024 8:21 AM Signed Order approved for screening mammogram. . Filiberto Suarez LPN 02/27/2024 12:21 PM Signed Spoke with pt and information listed below given. Pt verbalizes understanding. Transferred pt to multicraft operator. Filiberto Suarez LPN Allergies As of Date: 02/24/2024 (No Known Allergies) Date Reviewed: 12/01/2023 Reviewed by: Evonne Castro LPN - Fully Assessed Reason for Visit: mammogram orders [Other] Primary Visit Diagnosis:History of breast cancer [Z85.3] Other Visit Diagnosis:Screening mammogram, encounter for [Z12.31] Order(s):[facility] SCREENING [[id number]] Order #: [id number] FUTURE Prescriptions as of 02/27/2024 - OXYGEN, HOME THERAPY, Inhale 2 L/min as instructed as directed. 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 - Artificial Tear, Hypromellose, (GENTEAL TEARS SEVERE GEL) 0.3 % gel Use 1 Drop in both eyes daily at bedtime. - potassium chloride (K-TAB) 10 mEq tablet Take 10 mEq by mouth twice daily. - aspirin, enteric coated (ASPIRIN, ENTERIC COATED) 81 mg EC tablet Take 81 mg by mouth once daily. - Cholecalciferol, Vitamin D3, 50 mcg (2,000 unit) cap Take by mouth. - metoprolol tartrate, short acting, (LOPRESSOR) 25 mg tablet Take 12.5 mg by mouth twice daily. - atorvastatin calcium(LIPITOR 10 MG TAB) Take one(1) tablet daily. - acetaminophen(TYLENOL 325 MG TAB) Take two(2) tablets every four(4) to six(6) hours as needed for pain. Problem List As Of Date 02/24/2024 Noted Resolved Acute gastritis without mention of hemorrhage [*08/30/2006 05/15/2019 DIAPHRAGMATIC HERNIA [K44.9] 08/30/2006 Breast cancer, stage 4 (HCC) [C50.919] 09/16/2009 10/27/2015 Tear film insufficiency, unspecified - Both Eye*08/28/2014 08/26/2016 Lens replaced by other means - Both Eyes [Z96.1]08/28/2014 08/26/2016 Other vitreous opacities - Both Eyes [H43.399] 08/28/2014 08/26/2016 Hyperlipidemia [E78.5] 08/28/2014 Floater, vitreous [H43.399] 08/22/2015 08/26/2016 Dry eye syndrome [H04.129] 08/22/2015 08/26/2016 Pseudophakia of both eyes [Z96.1] 08/22/2015 Colon cancer screening [Z12.11] 09/11/2015 09/11/2015 Vitreous floaters of both eyes [H43.393] 08/26/2016 Dry eye syndrome of both eyes [H04.123] 08/26/2016 Personal history of breast cancer [Z85.3] 01/24/2017 Punctate keratitis, 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] 08/31/2017 History of colonic polyps [Z86.010] 07/24/2018 Family history of colon cancer in father [Z80.0]07/24/2018 Obstructive sleep apnea [G47.33] 08/30/2018 08/20/2021 Shortness of breath [R06.02] 10/27/2016 Paroxysmal atrial fibrillation (HCC) [I48.0] 03/14/2019 05/15/2019 Palpitations [R00.2] 03/14/2019 Nonrheumatic mitral (valve) insufficiency [I34.*03/14/2019 Nonrheumatic tricuspid (valve) insufficiency [I*03/14/2019 Obesity, Class I, BMI 30-34.9 [E66.9] 03/19/2019 At risk for stroke [Z91.89] Anticoagulant long-term use [Z79.01] Persistent atrial fibrillation (HCC) [I48.19] 05/15/2019 05/31/2023 Status post catheter ablation of atrial fibrill* 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*07/22/2021 Coronary artery disease involving [place]*08/20/2021 Essential hypertension [I10] 10/27/2016 History of appendectomy [Z90.49] 08/20/2021 History of bariatric surgery [Z98.84] 08/20/2021 History of cataract extraction [Z98.49] 08/20/2021 History of tonsillectomy [Z90.89] 08/20/2021 Benign neoplasm of colon [D12.6] 12/01/2023 Esophageal reflux [K21.9] 12/01/2023 Pulmonary fibrosis (HCC) [J84.10] 12/01/2023 Osteoporosis, unspecified [M81.0] 12/01/2023 Encounter Status:Closed by FILIBERTO SUAREZ on 02/27/24 Normal [facility] CBC W Auto Differential pane l (Bld)on 02-08-2024 Basophils (Bld) [#/Vol] 0.07 10*3/uL Normal <0.11 [facility] Comment on above: Order Comment: Speci men Type: BLOOD SPECIMEN Ordering Facility: [facility] Address: [address] [place] [address] Performed By: #### 5 7021-8 #### [facility] CLIA [id number] [address] [place] [address] [place] Basophils/100 WBC (Bld) 0.5 % Normal [facility] Comment on above: Order Comment: Speci men Type: BLOOD SPECIMEN Ordering Facility: [facility] Address: [address] [place] [address] Performed By: #### 5 7021-8 #### [facility] CLIA [id number] [address] [place] [address] [place] Differential cell count method Nom (Bld) Auto Normal [facility] Comment on above: Order Comment: Speci men Type: BLOOD SPECIMEN Ordering Facility: [facility] Address: [address] [place] [address] Performed By: #### 5 7021-8 #### [facility] CLIA [id number] [address] [place] [address] [place] Eosinophils (Bld) [#/Vol] 0.32 10*3/uL Normal <0.46 [facility] Comment on above: Order Comment: Speci men Type: BLOOD SPECIMEN Ordering Facility: [facility] Address: [address] [place] [address] Performed By: #### 5 7021-8 #### [facility] CLIA [id number] [address] [place] [address] [place] Eosinophils/100 WBC (Bld) 2.3 % Normal [facility] Comment on above: Order Comment: Speci men Type: BLOOD SPECIMEN Ordering Facility: [facility] Address: [address] [place] [address] Performed By: #### 5 7021-8 #### [facility] CLIA [id number] [address] [place] [address] [place] Erythrocyte distribution width (RBC) [Ratio] 16.3 % High 11.5-15.0 [facility] Comment on above: Order Comment: Speci men Type: BLOOD SPECIMEN Ordering Facility: [facility] Address: [address] [place], [place] [address] Performed By: #### 5 7021-8 #### [facility] CLIA [id number] [address] [place] [address] [place] Hematocrit (Bld) [Volume fraction] 42.0 % Normal 36.0-46.0 [facility] Comment on above: Order Comment: Speci men Type: BLOOD SPECIMEN Ordering Facility: [facility] Address: [address] [id number] Performed By: #### 5 7021-8 #### [facility] CLIA [id number] [address] [place] [address] [place] Hemoglobin (Bld) [Mass/Vol] 13.1 g/dL Normal 11.5-15.5 [facility] Comment on above: Order Comment: Speci men Type: BLOOD SPECIMEN Ordering Facility: [facility] Address: [address] [place] [address] Performed By: #### 5 7021-8 #### [facility] CLIA [id number] [address] [place] [address] [place] Immature granulocytes (Bld) [#/Vol] 0.14 10*3/uL High <0.10 [facility] Comment on above: Order Comment: Speci men Type: BLOOD SPECIMEN Ordering Facility: [facility] Address: [address] [place] [address] Performed By: #### 5 7021-8 #### [facility] CLIA [id number] [address] [place] [address] [place] Immature granulocytes/100 WBC (Bld) 1.0 % Normal [facility] Comment on above: Order Comment: Speci men Type: BLOOD SPECIMEN Ordering Facility: [facility] Address: [address] [place] [address] Performed By: #### 5 7021-8 #### [facility] CLIA [id number] [address] [place] [address] [place] Lymphocytes (Bld) [#/Vol] 2.15 10*3/uL Normal 1.00-4.00 [facility] Comment on above: Order Comment: Speci men Type: BLOOD SPECIMEN Ordering Facility: [facility] Address: [address] [place] [address] Performed By: #### 5 7021-8 #### [facility] CLIA [id number] [address] [place] [address] [place] Lymphocytes/100 WBC (Bld) 15.7 % Normal [facility] Comment on above: Order Comment: Speci men Type: BLOOD SPECIMEN Ordering Facility: [facility] Address: [address] [place] [address] Performed By: #### 5 7021-8 #### [facility] CLIA [id number] [address] [place] [address] [place] MCH (RBC) [Entitic mass] 28.8 pg Normal 26.0-34.0 [facility] Comment on above: Order Comment: Speci men Type: BLOOD SPECIMEN Ordering Facility: [facility] Address: [address] [place] [address] Performed By: #### 5 7021-8 #### [id number] [address] [place] [address] [place] MCHC (RBC) [Mass/Vol] 31.2 g/dL Normal 30.5-36.0 [facility] Comment on above: Order Comment: Speci men Type: BLOOD SPECIMEN Ordering Facility: [facility] Address: [address] [place] [address] Performed By: #### 5 7021-8 #### [facility] [id number] [address] [place] [address] [place] MCV (RBC) [Entitic vol] 92.3 fL Normal 80.0-100.0 [facility] Comment on above: Order Comment: Speci men Type: BLOOD SPECIMEN Ordering Facility: [facility] Address: [address] [place] [address] Performed By: #### 5 7021-8 #### [facility] CLIA [id number] [address] [place] [address] [place] Monocytes (Bld) [#/Vol] 1.34 10*3/uL High <0.87 [facility] Comment on above: Order Comment: Speci men Type: BLOOD SPECIMEN Ordering Facility: [facility] Address: [address] [place] [address] Performed By: #### 5 7021-8 #### [facility] CLIA [id number] [address] [place] [address] [place] Monocytes/100 WBC (Bld) 9.8 % Normal [facility] Comment on above: Order Comment: Speci men Type: BLOOD SPECIMEN Ordering Facility: [facility] Address: [address] [place] [address] Performed By: #### 5 7021-8 #### [facility] CLIA [id number] [address] [place] [address] [place] Neutrophils (Bld) [#/Vol] 9.66 10*3/uL High 1.45-7.50 [facility] Comment on above: Order Comment: Speci men Type: BLOOD SPECIMEN Ordering Facility: [facility] Address: [address] [place] [address] Performed By: #### 5 7021-8 #### [facility] CLIA [id number] [address] [place] [address] [place] Neutrophils/100 WBC (Bld) 70.7 % Normal [facility] Comment on above: Order Comment: Speci men Type: BLOOD SPECIMEN Ordering Facility: [facility] Address: [address] [place] [address] Performed By: #### 5 7021-8 #### [facility] CLIA [id number] [address] [place] [address] [place] Nucleated RBC (Bld) [#/Vol] 10*3/uL Normal <0.01 [facility] Comment on above: Order Comment: Speci men Type: BLOOD SPECIMEN Ordering Facility: [facility] Address: [address] [place] [address] Performed By: #### 5 7021-8 #### [facility] CLIA [id number] [address] [place] [address] [place] Nucleated RBC/100 WBC (Bld) [Ratio] 0.0 /100 WBC Normal [facility] Comment on above: Order Comment: Speci men Type: BLOOD SPECIMEN Ordering Facility: [facility] Address: [address] [place] [address] Performed By: #### 5 7021-8 #### [facility] CLIA [id number] [address] [place] [address] [place] Platelet mean volume (Bld) [Entitic vol] 10.4 fL Normal 9.0-12.7 [facility] Comment on above: Order Comment: Speci men Type: BLOOD SPECIMEN Ordering Facility: [facility] Address: [address] [place] [address] Performed By: #### 5 7021-8 #### [facility] CLIA [id number] [address] [place] [address] [place] Platelets (Bld) [#/Vol] 313 10*3/uL Normal 150-400 [facility] Comment on above: Order Comment: Speci men Type: BLOOD SPECIMEN Ordering Facility: [facility] Address: [address] [place] [address] Performed By: #### 5 7021-8 #### [facility] CLIA [id number] [address] [place] [address] [place] RBC (Bld) [#/Vol] 4.55 10*6/uL Normal 3.90-5.20 [facility] Comment on above: Order Comment: Speci men Type: BLOOD SPECIMEN Ordering Facility: [facility] Address: [address] [place] [address] Performed By: #### 5 7021-8 #### [facility] CLIA [id number] [address] [place] [address] [place] WBC (Bld) [#/Vol] 13.68 10*3/uL High 3.70-11.00 [facility] Comment on above: Order Comment: Speci men Type: BLOOD SPECIMEN Ordering Facility: [facility] Address: [address] [place] [address] Performed By: #### 5 7021-8 #### [facility] CLIA [id number] [address] [place] [address] [place] Comprehensive metabolic 2000 panelon 02-08-2024 Albumin [Mass/Vol] 3.8 g/dL Low 3.9-4.9 [facility] Comment on above: Order Comment: Speci men Type: BLOOD SPECIMEN Ordering Facility: [facility] Address: [address] [place] [address] Performed By: #### 4 537-7 #### [facility] CLIA [id number] [address] [place] [address] [place] ALP [Catalytic activity/Vol] 100 U/L Normal 34-123 [facility] Comment on above: Order Comment: Speci men Type: BLOOD SPECIMEN Ordering Facility: [facility] Address: [address] [place] [address] Performed By: #### 4 537-7 #### [facility] CLIA [id number] [address] [place] [address] [place] ALT [Catalytic activity/Vol] 26 U/L Normal 7-38 [facility] Comment on above: Order Comment: Speci men Type: BLOOD SPECIMEN Ordering Facility: [facility] Address: [address] [place] [address] Performed By: #### 4 537-7 #### [facility] CLIA [id number] [address] [place] [address] [place] Anion gap [Moles/Vol] 11 mmol/L Normal 9-18 [facility] Comment on above: Order Comment: Speci men Type: BLOOD SPECIMEN Ordering Facility: [facility] Address: [address] [place] [address] Performed By: #### 4 537-7 #### [facility] CLIA [id number] [address] [place] [address] [place] AST [Catalytic activity/Vol] 13 U/L Normal 13-35 [facility] Comment on above: Order Comment: Speci men Type: BLOOD SPECIMEN Ordering Facility: [facility] Address: [address] [place] [address] Performed By: #### 4 537-7 #### [facility] CLIA [id number] [address] [place] [address] [place] Bilirubin [Mass/Vol] 0.6 mg/dL Normal 0.2-1.3 [facility] Comment on above: Order Comment: Speci men Type: BLOOD SPECIMEN Ordering Facility: [facility] Address: [address] [place] [address] Performed By: #### 4 537-7 #### [facility] CLIA [id number] [address] [place] [address] [place] Calcium [Mass/Vol] 9.9 mg/dL Normal 8.5-10.2 [facility] Comment on above: Order Comment: Speci men Type: BLOOD SPECIMEN Ordering Facility: [facility] Address: [address] [place] [address] Performed By: #### 4 537-7 #### [facility] CLIA [id number] [address] [place] [address] [place] Chloride [Moles/Vol] 103 mmol/L Normal 97-105 [facility] Comment on above: Order Comment: Speci men Type: BLOOD SPECIMEN Ordering Facility: [facility] Address: [address] [place] [address] Performed By: #### 4 537-7 #### [facility] CLIA [id number] [address] [id number] [address] [place] CO2 [Moles/Vol] 28 mmol/L Normal 22-30 [facility] Comment on above: Order Comment: Speci men Type: BLOOD SPECIMEN Ordering Facility: [facility] Address: [address] [place] [address] Performed By: #### 4 537-7 #### [facility] CLIA [id number] [address] [place] [address] [place] Creatinine [Mass/Vol] 0.84 mg/dL Normal 0.58-0.96 [facility] Comment on above: Order Comment: Speci men Type: BLOOD SPECIMEN Ordering Facility: [facility] Address: [address] [place] [address] Performed By: #### 4 537-7 #### [facility] CLIA [id number] [address] [place] [address] [place] [facility] Creatinine and Glomerular filtration rate.predicted panel (S/P/Bld) 73 mL/min/1.73m??? Normal >=60 [facility] Comment on above: Order Comment: Speci men Type: BLOOD SPECIMEN Ordering Facility: [facility] Address: [address] [place] [address] Result Comment: Zahida mated Glomerular Filtration Rate (eGFR) is calculated using the 2020 CKD-EPI creatinine equation. This equation utilizes serum creatinine, sex, and age as parameters. The creatinine assay has traceable calibration to isotope dilution-mass spectrometry. Refer to KDIGO guidelines for clinical interpretation. In patients with unstable renal function, e.g. those with acute kidney injury, the eGFR may not accurately reflect actual GFR. Performed By: #### 4 537-7 #### [facility] CLIA [id number] [address] [place] [address] [place] Glucose [Mass/Vol] 148 mg/dL High 74-99 [facility] Comment on above: Order Comment: Speci men Type: BLOOD SPECIMEN Ordering Facility: [facility] Address: [address] [place] [address] Result Comment: The [place] Diabetes Association (ADA) provides guidance for cutoff [...] Standards of Medical Care in Diabetes 2016, [place] [employer]. Diabetes Care. 2016.39(Suppl 1). Performed By: #### 4 537-7 #### [facility] CLIA [id number] [address] [place] [address] [place] Potassium [Moles/Vol] 4.1 mmol/L Normal 3.7-5.1 [facility] Comment on above: Order Comment: Speci men Type: BLOOD SPECIMEN Ordering Facility: [facility] Address: [address] [place] [address] Performed By: #### 4 537-7 #### [facility] CLIA [id number] [address] [place] [address] [place] Protein [Mass/Vol] 6.5 g/dL Normal 6.3-8.0 [facility] Comment on above: Order Comment: Speci men Type: BLOOD SPECIMEN Ordering Facility: [facility] Address: [address] [place] [address] Performed By: #### 4 537-7 #### [facility] CLIA [id number] [address] [place] [address] [place] Sodium [Moles/Vol] 142 mmol/L Normal 136-144 [facility] Comment on above: Order Comment: Speci men Type: BLOOD SPECIMEN Ordering Facility: [facility] Address: [address] [place] [address] Performed By: #### 4 537-7 #### [facility] CLIA [id number] [address] [place] [address] [place] Urea nitrogen [Mass/Vol] 14 mg/dL Normal 7-21 [facility] Comment on above: Order Comment: Speci men Type: BLOOD SPECIMEN Ordering Facility: [facility] Address: [address] [place] [address] Performed By: #### 4 537-7 #### [facility] CLIA [id number] [address] [place] [address] [place] ESR Westergren method (Bld) [Velocity]on 02-08-2024 ESR (Bld) [Velocity] 34 mm/h High 0-20 [facility] Comment on above: Order Comment: Speci men Type: BLOOD SPECIMENOrdering Facility: [facility] Address: [address] [place] [address] Performed By: #### 4 537-7 ####[facility] [id number] [place] [address] [place] URINALYSIS, REFLEX MICROSCOP ICon 02-07-2024 Bacteria LM.HPF (Urine sed) [#/Area] Negative Normal Negative [facility] Comment on above: Order Comment: Speci men Type: BLOOD SPECIMEN Ordering Facility: [facility] Address: [address] [place] [address] Performed By: #### 4 537-7 #### [facility] CLIA [id number] [address] [place] [address] [place] Bilirubin Ql (U) Negative Normal Negative [facility] Comment on above: Order Comment: Speci men Type: BLOOD SPECIMEN Ordering Facility: [facility] Address: [address] [place] [address] Performed By: #### 4 537-7 #### [facility] CLIA [id number] [address] [place] [address] [place] Clarity (Unsp spec) Clear Normal Clear [facility] Comment on above: Order Comment: Speci men Type: BLOOD SPECIMEN Ordering Facility: [facility] Address: [address] [place] [address] Performed By: #### 4 537-7 #### [facility] CLIA [id number] [address] [place] [address] [place] Color (U) Yellow Normal Yellow [facility] Comment on above: Order Comment: Speci men Type: BLOOD SPECIMEN Ordering Facility: [facility] Address: [address] [place] [address] Performed By: #### 4 537-7 #### [facility] CLIA [id number] [address] [place] [address] [place] Epithelial cells LM.HPF (Urine sed) [#/Area] None Seen Normal [facility] Comment on above: Order Comment: Speci men Type: BLOOD SPECIMEN Ordering Facility: [facility] Address: [address] [place] [address] Performed By: #### 4 537-7 #### [facility] CLIA [id number] [address] [place] [address] [place] [place] Glucose Test strip (U) [Mass/Vol] Negative Normal Negative [facility] Comment on above: Order Comment: Speci men Type: BLOOD SPECIMEN Ordering Facility: [facility] Address: [address] [place] [address] Performed By: #### 4 537-7 #### [facility] CLIA [id number] [address] [place] [address] [place] Hemoglobin Ql (U) Negative Normal Negative [facility] Comment on above: Order Comment: Speci men Type: BLOOD SPECIMEN Ordering Facility: [facility] Address: [address] [place] [address] Performed By: #### 4 537-7 #### [facility] CLIA [id number] [address] [place] [address] [place] Hyaline casts (Urine sed) [#/Area] 0 /[LPF] Normal 0 /LPF [facility] Comment on above: Order Comment: Speci men Type: BLOOD SPECIMEN Ordering Facility: [facility] Address: [address] [place] [address] Performed By: #### 4 537-7 #### [facility] CLIA [id number] [address] [place] [address] [place] Ketones Ql (U) Negative Normal Negative [facility] Comment on above: Order Comment: Speci men Type: BLOOD SPECIMEN Ordering Facility: [facility] Address: [address] [place] [address] Performed By: #### 4 537-7 #### [facility] CLIA [id number] [address] [place] [address] [place] Leukocyte esterase Test strip Ql (U) Trace Abnormal Negative [facility] Comment on above: Order Comment: Speci men Type: BLOOD SPECIMEN Ordering Facility: [facility] Address: [address] [place] [address] Performed By: #### 4 537-7 #### [facility] CLIA [id number] [address] [place] [address] [place] Nitrite Ql (U) Negative Normal Negative [facility] Comment on above: Order Comment: Speci men Type: BLOOD SPECIMEN Ordering Facility: [facility] Address: [address] [place] [address] Performed By: #### 4 537-7 #### [facility] CLIA [id number] [address] [place] [address] [place] pH (U) 6.0 [pH] Normal <8.5 [facility] Comment on above: Order Comment: Speci men Type: BLOOD SPECIMEN Ordering Facility: [facility] Address: [address] [place] [address] Performed By: #### 4 537-7 #### [facility] CLIA [id number] [address] [place] [address] [place] Protein (U) [Mass/Vol] Negative Normal Negative [facility] Comment on above: Order Comment: Speci men Type: BLOOD SPECIMEN Ordering Facility: [facility] Address: [address] [place] [address] Performed By: #### 4 537-7 #### [facility] CLIA [id number] [address] [place] [address] [place] RBC LM.HPF (Urine sed) [#/Area] 0-2 /HPF Normal 0-2 /HPF [facility] Comment on above: Order Comment: Speci men Type: BLOOD SPECIMEN Ordering Facility: [facility] Address: [address] [place] [address] Performed By: #### 4 537-7 #### [facility] CLIA [id number] [address] [place] [address] [place] Specific gravity (U) [Rel density] 1.009 Normal 1.005-1.030 [facility] Comment on above: Order Comment: Speci men Type: BLOOD SPECIMEN Ordering Facility: [facility] Address: [address] [place] [address] Performed By: #### 4 537-7 #### [facility] CLIA [id number] [address] [place] [address] [place] Urobilinogen Ql (U) 0.2 EU/dL Normal 0.2-1.0 EU/dL [facility] Comment on above: Order Comment: Speci men Type: BLOOD SPECIMEN Ordering Facility: [facility] Address: [address] [place] [address] Performed By: #### 4 537-7 #### [facility] CLIA [id number] [address] [place] [address] [place] WBC LM.HPF (Urine sed) [#/Area] 0-5 /HPF Normal 0-5 /HPF [facility] Comment on above: Order Comment: Speci men Type: BLOOD SPECIMEN Ordering Facility: [facility] Address: [address] [place] [address] Performed By: #### 4 537-7 #### [facility] CLIA [id number] [address] [place] [address] [id number] OF [facility] CNPChristel 01-19-2024 CNPN Telephone (FAMPWS) -------- KAREN FALK ([id number]) 1950 F [facility] Date Time Provider Department 01/19/24 [facility] During your visit today, we recorded the following information about you: Filiberto Suarez LPN 01/19/2024 8:57 AM Signed Pt called to let you know the medication Detrol is not helping with her leaky bladder and she is going to d/c. She reports she will discuss further at her next apt. Please d/c medication. MYKEL Lainez Christopher B, MD 01/19/2024 9:00 AM Addendum We started her on a low dose of this medication and could increase the dosage to 2 mg BID if she is not having side effects. If she would like to discuss symptoms and treatment earlier, we have openings available today. Evonne Castro LPN 01/19/2024 9:05 AM Signed Phoned patient and reviewed provider's message with her. Patient voiced understanding but declines wanting to try increasing medication or appointment at this time. She reports she has other issues she is dealing with right now and prefers to just stop the medication. Jose Stewart MD 01/19/2024 9:18 AM Signed Reviewed. Medication discontinued from med list. Filiberto Suarez LPN 01/19/2024 11:01 AM Signed Pt notified. Filiberto Suarez LPN Allergies As of Date: 01/19/2024 (No Known Allergies) Date Reviewed: 12/01/2023 Reviewed by: Evonne Castro LPN - Fully Assessed Reason for Visit: medication issue [Other] Prescriptions as of 01/19/2024 - OXYGEN, HOME THERAPY, Inhale 2 L/min as instructed as directed. 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 - Artificial Tear, Hypromellose, (GENTEAL TEARS SEVERE GEL) 0.3 % gel Use 1 Drop in both eyes daily at bedtime. - potassium chloride (K-TAB) 10 mEq tablet Take 10 mEq by mouth twice daily. - aspirin, enteric coated (ASPIRIN, ENTERIC COATED) 81 mg EC tablet Take 81 mg by mouth once daily. - Cholecalciferol, Vitamin D3, 50 mcg (2,000 unit) cap Take by mouth. - metoprolol tartrate, short acting, (LOPRESSOR) 25 mg tablet Take 12.5 mg by mouth twice daily. - atorvastatin calcium(LIPITOR 10 MG TAB) Take one(1) tablet daily. - acetaminophen(TYLENOL 325 MG TAB) Take two(2) tablets every four(4) to six(6) hours as needed for pain. Problem List As Of Date 01/19/2024 Noted Resolved Acute gastritis without mention of hemorrhage [*08/30/2006 05/15/2019 DIAPHRAGMATIC HERNIA [K44.9] 08/30/2006 Breast cancer, stage 4 (HCC) [C50.919] 09/16/2009 10/27/2015 Tear film insufficiency, unspecified - Both Eye*08/28/2014 08/26/2016 Lens replaced by other means - Both Eyes [Z96.1]08/28/2014 08/26/2016 Other vitreous opacities - Both Eyes [H43.399] 08/28/2014 08/26/2016 Hyperlipidemia [E78.5] 08/28/2014 Floater, vitreous [H43.399] 08/22/2015 08/26/2016 Dry eye syndrome [H04.129] 08/22/2015 08/26/2016 Pseudophakia of both eyes [Z96.1] 08/22/2015 Colon cancer screening [Z12.11] 09/11/2015 09/11/2015 Vitreous floaters of both eyes [H43.393] 08/26/2016 Dry eye syndrome of both eyes [H04.123] 08/26/2016 Personal history of breast cancer [Z85.3] 01/24/2017 Punctate keratitis, 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] 08/31/2017 History of colonic polyps [Z86.010] 07/24/2018 Family history of colon cancer in father [Z80.0]07/24/2018 Obstructive sleep apnea [G47.33] 08/30/2018 08/20/2021 Shortness of breath [R06.02] 10/27/2016 Paroxysmal atrial fibrillation (HCC) [I48.0] 03/14/2019 05/15/2019 Palpitations [R00.2] 03/14/2019 Nonrheumatic mitral (valve) insufficiency [I34.*03/14/2019 Nonrheumatic tricuspid (valve) insufficiency [I*03/14/2019 Obesity, Class I, BMI 30-34.9 [E66.9] 03/19/2019 At risk for stroke [Z91.89] Anticoagulant long-term use [Z79.01] Persistent atrial fibrillation (HCC) [I48.19] 05/15/2019 05/31/2023 Status post catheter ablation of atrial fibrill* 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*07/22/2021 Coronary artery disease involving [place]*08/20/2021 Essential hypertension [I10] 10/27/2016 History of appendectomy [Z90.49] 08/20/2021 History of bariatric surgery [Z98.84] 08/20/2021 History of cataract extraction [Z98.49] 08/20/2021 History of tonsillectomy [Z90.89] 08/20/2021 Benign neoplasm of colon [D12.6] 12/01/2023 Esophageal reflux [K21.9] 12/01/2023 Pulmonary fibrosis (HCC) [J84.10] 12/01/2023 Osteoporosis, unspecified [M81.0] 12/01/2023 Medications Discontinued During This Encounter Prescriptions - tolterodine (DETROL) 1 mg tablet (Discontinued) Take 1 tablet by mouth two times a day. Encounter Status:Closed by FILIBERTO SUAREZ on 01/19/24 [facility] CNOVon 01-10-2024 CNOV Office Visit (RHEUMN ) -------- DEYAKAREN ([id number]) 1950 F [facility] Date Time Provider Department 01/10/24 12:00 PM AMOR STAPLETON During your visit today, we recorded the following information about you: Temperature Pulse Blood pressure Weight 98.1 degrees 73/minute 141/67 83.9 kg Height 1.626 m Amor Stapleton MD 02/05/2024 6:28 PM Signed Karen Paniagua Deya is a 73 year old female here for follow-up of GPA Evaluation Date: 01/10/2024 Last Visit in Rheumatology: 08/31/2023 (with Amor Escobar) ACTIVE PROBLEM LIST Benign Neoplasm of Colon - 12/01/2023 Esophageal Reflux - 12/01/2023 Pulmonary Fibrosis (Hcc) - 12/01/2023 Osteoporosis, Unspecified - 12/01/2023 Coronary Artery Disease Involving [place] Coronary Artery of [place] Heart Without Angina Pectoris - 08/20/2021 History of Appendectomy - 08/20/2021 History of Bariatric Surgery - 08/20/2021 History of Cataract Extraction - 08/20/2021 History of Tonsillectomy - 08/20/2021 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 Status Post Catheter Ablation of Atrial Fibrillation Comment: balloon catheter cryoablation atrial fibrillation PVAI 05/15/2019 Obesity, Class I, Bmi 30-34.9 - 03/19/2019 At Risk for Stroke Comment: [id number] = 3 (HTN, age, female gender) Anticoagulant Long-Term Use Comment: apixaban (Eliquis); indication: stroke prevention AF Palpitations - 03/14/2019 Nonrheumatic Mitral (Valve) Insufficiency - 03/14/2019 Nonrheumatic Tricuspid (Valve) Insufficiency - 03/14/2019 History of Colonic Polyps - 07/24/2018 Comment: Added automatically from request for surgery [id number] Family History of Colon Cancer in Father - 07/24/2018 Comment: Added automatically from request for surgery [id number] Punctate Keratitis, Bilateral - 08/31/2017 Personal History [...] Karen Falk states that she has been having progressively worse SOB and PFTS and chest CT showed worsening of disease - fibrosis. Logger All Round recommended Ofev. Has a chronic dry cough No pleuritic chest pain pulse ox at rest ~ 95%, and ~84% with minimal walking in the house No nasal, sinus or ear symptom at this time SMALL/MEDIUM VESSEL VASCULITIS ROS: GENERAL: fatigue FEVER: none WEIGHT CHANGE: none ENT: negative for, sinus tenderness, nasal crusting, epistaxis, ear pain, sore throat, difficulty swallowing, mouth lesions EYES: negative for , pain, redness, visual blurring RESPIRATORY: negative for, hemoptysis CARDIOVASCULAR: negative for, chest pain GASTROINTESTINAL: negative for, abdominal pain, vomiting, diarrhea URINARY: negative for, dysuria, hematuria MUSCULOSKELETAL: negative for, joint pain, joint swelling NEUROLOGIC: negative for, numbness SKIN: negative for, rash REVIEW OF FAMILY AND/OR SOCIAL HISTORY: The family and/or social were reviewed at todays visit and no changes were noted. Date of last DEXA: 06/30/2023 Current Outpatient Medications Medication Sig tolterodine (DETROL) 1 mg tablet Take 1 tablet by mouth two times a day. OXYGEN, HOME THERAPY, Inhale 2 L/min as instructed as directed. budesonide, enteric coated (ENTOCORT EC) 3 mg [...] for this visit. PHYSICAL EXAMINATION Blood pressure 141/67, pulse 73, temperature 36.7 ?C (98.1 ?F), temperature source Oral, height 162.6 cm (5' 4 ), weight 83.9 kg (185 lb). GENERAL APPEARANCE: well SKIN: normal without rashes or lesions EYES: conjunctiva clear, PERRL, EOM normal EARS: External ears normal, TM's normal NOSE/SINUSES: normal OROPHARYNX: no oral lesions present, no oral ulcers. LUNGS: clear HEART: RRR, no gallops, rubs or murmurs MUSCULOSKELETAL: (more content not included)... Normal [facility] Telephone (FREDOWS) -------- KAREN FALK ([id number]) 1950 F [facility] Date Time Provider Department 12/06/23 JOSE STEWART During your visit today, we recorded the following information about you: Susanne Maier LPN 12/06/2023 9:31 AM Signed ----- Message from Jose Stewart MD sent at 12/06/2023 8:32 AM EST ----- Normal SUE at rest. Negative for peripheral artery disease based on this study. Continue current regimen. Susanne Maier LPN 12/06/2023 9:34 AM Signed Phoned patient and went over results, notes from Dr Stewart with understanding. Allergies As of Date: 12/06/2023 (No Known Allergies) Date Reviewed: 12/01/2023 Reviewed by: Evonne Castro LPN - Fully Assessed Reason for Visit: Results [95] Prescriptions as of 12/06/2023 - nitrofurantoin monohydrate and macrocrystal (MACROBID) 100 mg capsule Take 1 capsule by mouth two times a day with meals for 5 days. - tolterodine (DETROL) 1 mg tablet Take 1 tablet by mouth two times a day. - OXYGEN, HOME THERAPY, Inhale 2 L/min as instructed as directed. 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 - Artificial Tear, Hypromellose, (GENTEAL TEARS SEVERE GEL) 0.3 % gel Use 1 Drop in both eyes daily at bedtime. - potassium chloride (K-TAB) 10 mEq tablet Take 10 mEq by mouth twice daily. - aspirin, enteric coated (ASPIRIN, ENTERIC COATED) 81 mg EC tablet Take 81 mg by mouth once daily. - Cholecalciferol, Vitamin D3, 50 mcg (2,000 unit) cap Take by mouth. - metoprolol tartrate, short acting, (LOPRESSOR) 25 mg tablet Take 12.5 mg by mouth twice daily. - atorvastatin calcium(LIPITOR 10 MG TAB) Take one(1) tablet daily. - acetaminophen(TYLENOL 325 MG TAB) Take two(2) tablets every four(4) to six(6) hours as needed for pain. Problem List As Of Date 12/06/2023 Noted Resolved Acute gastritis without mention of hemorrhage [*08/30/2006 05/15/2019 DIAPHRAGMATIC HERNIA [K44.9] 08/30/2006 Breast cancer, stage 4 (HCC) [C50.919] 09/16/2009 10/27/2015 Tear film insufficiency, unspecified - Both Eye*08/28/2014 08/26/2016 Lens replaced by other means - Both Eyes [Z96.1]08/28/2014 08/26/2016 Other vitreous opacities - Both Eyes [H43.399] 08/28/2014 08/26/2016 Hyperlipidemia [E78.5] 08/28/2014 Floater, vitreous [H43.399] 08/22/2015 08/26/2016 Dry eye syndrome [H04.129] 08/22/2015 08/26/2016 Pseudophakia of both eyes [Z96.1] 08/22/2015 Colon cancer screening [Z12.11] 09/11/2015 09/11/2015 Vitreous floaters of both eyes [H43.393] 08/26/2016 Dry eye syndrome of both eyes [H04.123] 08/26/2016 Personal history of breast cancer [Z85.3] 01/24/2017 Punctate keratitis, 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] 08/31/2017 History of colonic polyps [Z86.010] 07/24/2018 Family history of colon cancer in father [Z80.0]07/24/2018 Obstructive sleep apnea [G47.33] 08/30/2018 08/20/2021 Shortness of breath [R06.02] 10/27/2016 Paroxysmal atrial fibrillation (HCC) [I48.0] 03/14/2019 05/15/2019 Palpitations [R00.2] 03/14/2019 Nonrheumatic mitral (valve) insufficiency [I34.*03/14/2019 Nonrheumatic tricuspid (valve) insufficiency [I*03/14/2019 Obesity, Class I, BMI 30-34.9 [E66.9] 03/19/2019 At risk for stroke [Z91.89] Anticoagulant long-term use [Z79.01] Persistent atrial fibrillation (HCC) [I48.19] 05/15/2019 05/31/2023 Status post catheter ablation of atrial fibrill* 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*07/22/2021 Coronary artery disease involving [place]*08/20/2021 Essential hypertension [I10] 10/27/2016 History of appendectomy [Z90.49] 08/20/2021 History of bariatric surgery [Z98.84] 08/20/2021 History of cataract extraction [Z98.49] 08/20/2021 History of tonsillectomy [Z90.89] 08/20/2021 Benign neoplasm of colon [D12.6] 12/01/2023 Esophageal reflux [K21.9] 12/01/2023 Pulmonary fibrosis (HCC) [J84.10] 12/01/2023 Osteoporosis, unspecified [M81.0] 12/01/2023 Encounter Status:Closed by SUSANNE MAIER on 12/06/23 [facility] 12-05-2023 CNPN Telephone (FAMRodrigoWS) -------- KAREN FALK ([id number]) 1950 F [facility] Date Time Provider Department 12/05/23 JOSE STEWART During your visit today, we recorded the following information about you: Taylor Pryor LPN 12/05/2023 9:16 AM Signed ----- Message from Jose Stewart MD sent at 12/05/2023 8:43 AM EST ----- Urine culture positive for e coli which is susceptible to all antibiotics. Continue with macrobid and increased fluid intake.call if symptoms not resolved after completing abx. Hold off on starting the Detrol until we see if treating this infection improves her urinary symptoms. Taylor Pryor LPN 12/05/2023 10:45 AM Signed Patient notified of results and recommendations. States she didn't have symptoms to begin with. Asking if she should take another urine test after completion of ATB to determine if it resolved. Please advise MYKEL Uribe Christopher B, MD 12/05/2023 11:05 AM Signed She does not need another urine test at this time. She was complaining of urgency and incontinence. Let us know if that does not improve with this treatment. Evonne Castro LPN 12/05/2023 12:36 PM Signed Phoned patient and reviewed provider's message with her. She voiced understanding. Allergies As of Date: 12/05/2023 (No Known Allergies) Date Reviewed: 12/01/2023 Reviewed by: Evonne Castro LPN - Fully Assessed Reason for Visit: Results [95] Prescriptions as of 12/05/2023 - nitrofurantoin monohydrate and macrocrystal (MACROBID) 100 mg capsule Take 1 capsule by mouth two times a day with meals for 5 days. - tolterodine (DETROL) 1 mg tablet Take 1 tablet by mouth two times a day. - OXYGEN, HOME THERAPY, Inhale 2 L/min as instructed as directed. 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 - Artificial Tear, Hypromellose, (GENTEAL TEARS SEVERE GEL) 0.3 % gel Use 1 Drop in both eyes daily at bedtime. - potassium chloride (K-TAB) 10 mEq tablet Take 10 mEq by mouth twice daily. - aspirin, enteric coated (ASPIRIN, ENTERIC COATED) 81 mg EC tablet Take 81 mg by mouth once daily. - Cholecalciferol, Vitamin D3, 50 mcg (2,000 unit) cap Take by mouth. - metoprolol tartrate, short acting, (LOPRESSOR) 25 mg tablet Take 12.5 mg by mouth twice daily. - atorvastatin calcium(LIPITOR 10 MG TAB) Take one(1) tablet daily. - acetaminophen(TYLENOL 325 MG TAB) Take two(2) tablets every four(4) to six(6) hours as needed for pain. Problem List As Of Date 12/05/2023 Noted Resolved Acute gastritis without mention of hemorrhage [*08/30/2006 05/15/2019 DIAPHRAGMATIC HERNIA [K44.9] 08/30/2006 Breast cancer, stage 4 (HCC) [C50.919] 09/16/2009 10/27/2015 Tear film insufficiency, unspecified - Both Eye*08/28/2014 08/26/2016 Lens replaced by other means - Both Eyes [Z96.1]08/28/2014 08/26/2016 Other vitreous opacities - Both Eyes [H43.399] 08/28/2014 08/26/2016 Hyperlipidemia [E78.5] 08/28/2014 Floater, vitreous [H43.399] 08/22/2015 08/26/2016 Dry eye syndrome [H04.129] 08/22/2015 08/26/2016 Pseudophakia of both eyes [Z96.1] 08/22/2015 Colon cancer screening [Z12.11] 09/11/2015 09/11/2015 Vitreous floaters of both eyes [H43.393] 08/26/2016 Dry eye syndrome of both eyes [H04.123] 08/26/2016 Personal history of breast cancer [Z85.3] 01/24/2017 Punctate keratitis, 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] 08/31/2017 History of colonic polyps [Z86.010] 07/24/2018 Family history of colon cancer in father [Z80.0]07/24/2018 Obstructive sleep apnea [G47.33] 08/30/2018 08/20/2021 Shortness of breath [R06.02] 10/27/2016 Paroxysmal atrial fibrillation (HCC) [I48.0] 03/14/2019 05/15/2019 Palpitations [R00.2] 03/14/2019 Nonrheumatic mitral (valve) insufficiency [I34.*03/14/2019 Nonrheumatic tricuspid (valve) insufficiency [I*03/14/2019 Obesity, Class I, BMI 30-34.9 [E66.9] 03/19/2019 At risk for stroke [Z91.89] Anticoagulant long-term use [Z79.01] Persistent atrial fibrillation (HCC) [I48.19] 05/15/2019 05/31/2023 Status post catheter ablation of atrial fibrill* 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*07/22/2021 Coronary artery disease involving [place]*08/20/2021 Essential hypertension [I10] 10/27/2016 History of appendectomy [Z90.49] 08/20/2021 History of bariatric surgery [Z98.84] 08/20/2021 History of cataract extraction [Z98.49] 08/20/2021 History of tonsillectomy [Z90.89] 08/20/2021 Benign neoplasm of colon [D12.6] 12/01/2023 Esophageal reflux [K21.9] 12/01/2023 Pulmonary fibrosis (HCC) [J84.10] 12/01/2023 Osteoporosis, unspecified [M81.0] 12/01/2023 Encounter Status:Closed by EVON[facility] CASTRO [facility] 12[facility]05/[facility] KAREN FALK ([id number]) 1950 [facility] Date Time Provider Department 12/02/23 JOSE STEWART [facility] During your visit today, we recorded the following information about you: Jose Stewart MD 12/02/2023 8:06 AM Signed Patient's UA is positive for signs of infection/UTI. Will start her on Macrobid while the culture is pending. Push PO fluids. Hold off on starting the Detrol until we see if treating this infection improves her urinary symptoms. Santa Wang RN 12/02/2023 8:11 AM Signed Patient notified. Santa Wang RN Allergies As of Date: 12/02/2023 (No Known Allergies) Date Reviewed: 12/01/2023 Reviewed by: Evonne Castro LPN - Fully Assessed Reason for Visit: Results [95] Order(s):nitrofurantoin monohydrate and macrocrystal (MACROBID) 100 mg capsuleTake 1 capsule by mouth two times a day with meals for 5 days.Disp: 10 capsuleRfl: 0 Prescriptions as of 12/02/2023 - nitrofurantoin monohydrate and macrocrystal (MACROBID) 100 mg capsule Take 1 capsule by mouth two times a day with meals for 5 days. - tolterodine (DETROL) 1 mg tablet Take 1 tablet by mouth two times a day. - OXYGEN, HOME THERAPY, Inhale 2 L/min as instructed as directed. 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 - Artificial Tear, Hypromellose, (GENTEAL TEARS SEVERE GEL) 0.3 % gel Use 1 Drop in both eyes daily at bedtime. - potassium chloride (K-TAB) 10 mEq tablet Take 10 mEq by mouth twice daily. - aspirin, enteric coated (ASPIRIN, ENTERIC COATED) 81 mg EC tablet Take 81 mg by mouth once daily. - Cholecalciferol, Vitamin D3, 50 mcg (2,000 unit) cap Take by mouth. - metoprolol tartrate, short acting, (LOPRESSOR) 25 mg tablet Take 12.5 mg by mouth twice daily. - atorvastatin calcium(LIPITOR 10 MG TAB) Take one(1) tablet daily. - acetaminophen(TYLENOL 325 MG TAB) Take two(2) tablets every four(4) to six(6) hours as needed for pain. Problem List As Of Date 12/02/2023 Noted Resolved Acute gastritis without mention of hemorrhage [*08/30/2006 05/15/2019 DIAPHRAGMATIC HERNIA [K44.9] 08/30/2006 Breast cancer, stage 4 (HCC) [C50.919] 09/16/2009 10/27/2015 Tear film insufficiency, unspecified - Both Eye*08/28/2014 08/26/2016 Lens replaced by other means - Both Eyes [Z96.1]08/28/2014 08/26/2016 Other vitreous opacities - Both Eyes [H43.399] 08/28/2014 08/26/2016 Hyperlipidemia [E78.5] 08/28/2014 Floater, vitreous [H43.399] 08/22/2015 08/26/2016 Dry eye syndrome [H04.129] 08/22/2015 08/26/2016 Pseudophakia of both eyes [Z96.1] 08/22/2015 Colon cancer screening [Z12.11] 09/11/2015 09/11/2015 Vitreous floaters of both eyes [H43.393] 08/26/2016 Dry eye syndrome of both eyes [H04.123] 08/26/2016 Personal history of breast cancer [Z85.3] 01/24/2017 Punctate keratitis, 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] 08/31/2017 History of colonic polyps [Z86.010] 07/24/2018 Family history of colon cancer in father [Z80.0]07/24/2018 Obstructive sleep apnea [G47.33] 08/30/2018 08/20/2021 Shortness of breath [R06.02] 10/27/2016 Paroxysmal atrial fibrillation (HCC) [I48.0] 03/14/2019 05/15/2019 Palpitations [R00.2] 03/14/2019 Nonrheumatic mitral (valve) insufficiency [I34.*03/14/2019 Nonrheumatic tricuspid (valve) insufficiency [I*03/14/2019 Obesity, Class I, BMI 30-34.9 [E66.9] 03/19/2019 At risk for stroke [Z91.89] Anticoagulant long-term use [Z79.01] Persistent atrial fibrillation (HCC) [I48.19] 05/15/2019 05/31/2023 Status post catheter ablation of atrial fibrill* 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*07/22/2021 Coronary artery disease involving northwestern shoshone barkley*08/20/2021 Essential hypertension [I10] 10/27/2016 History of appendectomy [Z90.49] 08/20/2021 History of bariatric surgery [Z98.84] 08/20/2021 History of cataract extraction [Z98.49] 08/20/2021 History of tonsillectomy [Z90.89] 08/20/2021 Benign neoplasm of colon [D12.6] 12/01/2023 Esophageal reflux [K21.9] 12/01/2023 Pulmonary fibrosis (HCC) [J84.10] 12/01/2023 Osteoporosis, unspecified [M81.0] 12/01/2023 Prescriptions ordered this encounter Disp Refills Start End NITROFURANTOIN MONOHYDRATE AND MACROCR* 10 c* 0 12/02/2023 12/07/2023 Route: ORAL Sig: Take 1 capsule by mouth two times a day with meals for 5 days. Encounter Status:Closed by [place] on 12/02/23 [facility] CNOVon 12-01-2023 CNOV Office Visit (FAMPWS ) -------- KAREN FALK ([id number]) 1950 F SCAR Date Time Provider Department 12/01/23 3:00 PM [facility] During your visit today, we recorded the following information about you: Pulse Respiration Blood pressure 83/minute 16/minute 118/68 Jose Stewart MD 12/07/2023 10:54 AM Signed Chief Complaint Patient presents with: Follow Up: 6 month HPI Karenreece Falk is a 73 year old female [...] pulmonary fibrosis managed by Dr. Rae at [facility] on a yearly basis. Uses oxygen at night. Not on any inhalers at this time. Symptoms stable in the last year. Has f/u next month. CAD/History of a fib s/p ablation: Managed by [facility] cardiology. Has follow up appointment with their [...] prevention AF Arrhythmia At risk for stroke [id number] = 4 (HTN, age, CAD, female gender) Benign neoplasm of colon Breast cancer, stage 4 (HCC) 2007 right breast - chemo and radiation Coronary artery disease involving [place]western sh[place] coronary artery of northwestern shoshone heart without angina pectoris Diaphragmatic hernia without [...] catheter cryoablation atrial fibrillation PVAI; [facility] Dr. Jackson APPENDECTOMY CARDIAC CATH Left 05/15/2008 preserved LV [...] stent to mid LAD; PTCA to D1; [facility] LAP ADJUSTABLE GASTRIC BAND lapband 2006 released when diagnosed with breast cancer LIG/TRNSXJ FLP TUBE ABDL/VAG APPR UNI/BI Tubal ligation LUMPECTOMY/RADIOTHERAPY DIAG MAMM/A10 02/06 (more content not included)... Normal [facility] HbA1c (Bld)on 12-01-2023 Average glucose Estimated from glycated hemoglobin (Bld) [Mass/Vol] 117 mg/dL Normal [facility] Comment on above: Order Comment: Kasandra greene Type: BLOOD SPECIMEN Ordering Facility: [facility] Address: [address] [place] [address] Result Comment: eAG: (Estimated average glucose) is a calculated value from HgbA1c and is patient financial representative of the average blood glucose level in the last 2-3 month period. Performed By: #### 4 537-7 #### [facility] CLIA [id number] [address] [place] [address] [place] [address] [place] HbA1c (Bld) [Mass fraction] 5.7 % High 4.3-5.6 [facility] Comment on above: Order Comment: Kasandra greene Type: BLOOD SPECIMEN Ordering Facility: [facility] Address: [address] [place] [address] Result Comment: Amer [place] Diabetes Association guidelines indicate that patients with HgbA1c in the range 5.7-6.4% are at increased risk for development of diabetes, and intervention by lifestyle modification may be beneficial. HgbA1c greater or equal to 6.5% is considered diagnostic of diabetes. Performed By: #### 4 537-7 #### [facility] CLIA [id number] [address] [place] [address] [place] PVR ANK/ROSS/TOE [facility] on 12-01-2023 PVR ANK/ROSS/TOE [facility] Non-Invasive Vascular Laboratory [facility] Lower Extremity Arterial Physiology Study Bilateral/Complete Date of service/time: 12/01/2023 4:19:17 PM Name: MRS. KAREN FALK Date of : 1950 Age: 73 years Gender: F Clinical Indication Pain in leg. TECHNIQUE -------- An arterial physiological examination was performed, including measurement of blood pressures using continuous wave Doppler and recording of plethysmographic with or without Doppler waveforms at the below-mentioned limb segments. FINDINGS -------- RIGHT SIDE AT REST Right Pressures Brachial: Unable to do, pressure and tracings. Ankle dorsalis pedis: 145 mmHg SUE: 1.02 Ankle posterior tibial: 160 mmHg SUE: 1.13 Digit: 105 mmHg Right PVR Waveforms Ankle: Normal. Transmetatarsal: Normal. Digit: Normal. LEFT SIDE AT REST Left Pressures Brachial: 142 mmHg Ankle dorsalis pedis: 161 mmHg SUE: 1.13 Ankle posterior tibial: 173 mmHg SUE: 1.22 Digit: 100 mmHg Left PVR Waveforms Ankle: Normal. Transmetatarsal: Normal. Digit: Normal. IMPRESSION RIGHT SIDE Resting right ankle brachial index: 1.13 Right toe brachial index: 0.74 Normal ankle brachial index at rest in the right leg. Normal toe brachial index at rest in the right leg. Right ankle: Normal at rest. LEFT SIDE Resting left ankle brachial index: 1.22 Left toe brachial index: 0.70 Normal ankle brachial index at rest in the left leg. Normal toe brachial index at rest in the left leg. Left ankle: Normal at rest. Technologist: Natalee Dawson RVT, [facility] Ordering physician: JOSE STEWART Interpreting physician: MENG Diaz DO Final CC [employer] Medical Image : [id number] See Link below for Image Normal [facility] Urinalysis complete panel (U )on 12-01-2023 BACTERIA UL >9821 High Negative [facility] Comment on above: Order Comment: Speci men Type: URINE SPECIMENOrdering Facility: [facility] Address: [address] [place] [address] Performed By: #### 2 4356-8 ####[facility] [id number] [place] [address] [place] Bilirubin Ql (U) Negative Normal Negative [facility] Comment on above: Order Comment: Speci men Type: URINE SPECIMENOrdering Facility: [facility] Address: [address] [place] [address] Performed By: #### 2 4356-8 ####[facility] [id number] [place] [address] [place] CALCIUM OXALATE CRYSTALS (UA) Few Abnormal None Seen [facility] Comment on above: Order Comment: Speci men Type: URINE SPECIMENOrdering Facility: [facility] Address: [address] [place] [address] Performed By: #### 2 4356-8 ####[facility] [id number] [place] [address] [place] Clarity (Unsp spec) Clear Normal Clear [facility] Comment on above: Order Comment: Speci men Type: URINE SPECIMENOrdering Facility: [facility] Address: [address] [place] [address] Performed By: #### 2 4356-8 ####[facility] [id number] [place] [address] [place] Color (U) Yellow Normal Yellow [facility] Comment on above: Order Comment: Speci men Type: URINE SPECIMENOrdering Facility: [facility] Address: [address] [place] [address] Performed By: #### 2 4356-8 ####[facility] [id number] [place] [address] [place] Epithelial cells LM.HPF (Urine sed) [#/Area] Few Normal [facility] Comment on above: Order Comment: Speci men Type: URINE SPECIMENOrdering Facility: [facility] Address: [address] [place] [address] Performed By: #### 2 4356-8 ####[facility] [id number] [place] [address] [place] Glucose Test strip (U) [Mass/Vol] Negative Normal Negative [facility] Comment on above: Order Comment: Speci men Type: URINE SPECIMENOrdering Facility: [facility] Address: [address] [place] [address] Performed By: #### 2 4356-8 ####[facility] [id number] [place] [address] [place] Hemoglobin Ql (U) Negative Normal Negative [facility] Comment on above: Order Comment: Speci men Type: URINE SPECIMENOrdering Facility: [facility] Address: [address] [place] [address] Performed By: #### 2 4356-8 ####[facility] [id number] [place] [address] [place] Hyaline casts (Urine sed) [#/Area] 4-10 /LPF Abnormal 0 /LPF [facility] Comment on above: Order Comment: Speci men Type: URINE SPECIMENOrdering Facility: [facility] Address: [address] [place] [address] Performed By: #### 2 4356-8 ####[facility] [id number] [place] [address] [place] Ketones Ql (U) Trace Abnormal Negative [facility] Comment on above: Order Comment: Speci men Type: URINE SPECIMENOrdering Facility: [facility] Address: [address] [place] [address] Performed By: #### 2 4356-8 ####[facility] [id number] [place] [address] [place] Leukocyte esterase Test strip Ql (U) 2+ Abnormal Negative [facility] Comment on above: Order Comment: Speci men Type: URINE SPECIMENOrdering Facility: [facility] Address: [address] [place] [address] Performed By: #### 2 4356-8 ####[facility] [id number] [place] [address] [place] Nitrite Ql (U) Positive Abnormal Negative [facility] Comment on above: Order Comment: Speci men Type: URINE SPECIMENOrdering Facility: [facility] Address: [address] [place] [address] Performed By: #### 2 4356-8 ####[facility] [id number] [place] [address] [place] pH (U) 5.5 [pH] Normal <8.5 [facility] Comment on above: Order Comment: Speci men Type: URINE SPECIMENOrdering Facility: [facility] Address: [address] [place], [place] [address] Performed By: #### 2 4356-8 ####[facility] [id number] [place] [address] [place] Protein (U) [Mass/Vol] Trace Abnormal Negative [facility] Comment on above: Order Comment: Speci men Type: URINE SPECIMENOrdering Facility: [facility] Address: [address] [place] [address] Performed By: #### 2 4356-8 ####[facility] [id number] [place] [address] [place] RBC LM.HPF (Urine sed) [#/Area] 0-2 /HPF Normal 0-2 /HPF [facility] Comment on above: Order Comment: Speci men Type: URINE SPECIMENOrdering Facility: [facility] Address: [address] [place] [address] Performed By: #### 2 4356-8 ####[facility] [id number] [place] [address] [place] Specific gravity (U) [Rel density] 1.024 Normal 1.005-1.030 [facility] Comment on above: Order Comment: Speci men Type: URINE SPECIMENOrdering Facility: [facility] Address: [address] [place] [address] Performed By: #### 2 4356-8 ####[facility] [id number] [place] [address] [place] Urobilinogen Ql (U) 1.0 EU/dL Normal 0.2-1.0 EU/dL [facility] Comment on above: Order Comment: Speci men Type: URINE SPECIMENOrdering Facility: [facility] Address: [address] [place] [address] Performed By: #### 2 4356-8 ####[facility] [id number] [place] [address] [place] WBC LM.HPF (Urine sed) [#/Area] /[HPF] Abnormal 0-5 /HPF [facility] Comment on above: Order Comment: Speci men Type: URINE SPECIMENOrdering Facility: [facility] Address: [address] [place] [address] Performed By: #### 2 4356-8 ####[facility] [id number] [address] [address] [place] Urinalysis complete pnl Uron 12-01-2023 Urinalysis complete panel (U) COLOR: Yellow CLARITY: Clear GLUCOSE, URINE: Negative BILIRUBIN, URINE: Negative KETONES, URINE: Trace SPECIFIC GRAVITY, UR: 1.024 HEMOGLOBIN/BLOOD, UR: Negative PH, URINE: 5.5 PROTEIN, URINE: Trace UROBILINOGEN: 1.0 EU/dL NITRITES: Positive LEUKEST: 2+ WBC, URINE: >20 /HPF RBC, URINE: 0-2 /HPF BACTERIA UL: >9821 SQUAMOUS EPITHELIAL CELLS: Few HYALINE CASTS: 4-10 /LPF CALCIUM OXALATE CRYSTALS (UA): Few ORGANISM ID: 1 >=100,000 CFU/ml Escherichia coli ORGANISM ID: 1 (ESCHERICHIA COLI) ANTIBIOTIC INTERPRETATION ALEIDA STATUS REFERENCE RANGE Ampicillin S 4 F Susceptible <=8 , Intermediate >8 , Resistant >16 Cefazolin S <=4 F Susceptible 0-16 , Intermediate <0 or >16 , Resistant >16 For uncomplicated urinary tract infections, cefazolin results can be used to predict susceptibility or resistance to cephalexin. Ceftriaxone S <=1 F Susceptible <=1 , Intermediate >1 , Resistant >=4 Cefepime S <=1 F Susceptible <=2 , Susceptible-Dose Dependent >2 , Resistant >=16 Ertapenem S <=0.5 F Susceptible <=0.5 , Intermediate >.5 , Resistant >1 Meropenem S <=0.25 F Susceptible <=1 , Intermediate >1 , Resistant >2 Ampicillin/Sulbact S 4 F Susceptible <=8 , Intermediate >8 , Resistant >16 Piperacillin/Tazobac S <=4 F Susceptible <=16 , Intermediate >16 , Resistant >64 Gentamicin S <=1 F Susceptible <=4 , Intermediate >4 , Resistant >8 Tobramycin S <=1 F Susceptible <=4 , Intermediate >4 , Resistant >8 Trimeth sulfameth S <=20 F Susceptible <=40 , Resistant >40 Ciprofloxacin S <=0.25 F Susceptible <0.5 , Intermediate >=.5 , Resistant >=1 Nitrofurantoin S <=16 F Susceptible <=32 , Intermediate >32 , Resistant >64 Abnormal [facility] Comment on above: Order Comment: Speci men Type: URINE SPECIMENOrdering Facility: [facility] Address: [address] [place] [address] Performed By: #### 2 4356-8 ####[facility] [id number] [place] [address] [place] CBC W Auto Differential pane l (Bld)on 11-22-2023 Basophils (Bld) [#/Vol] 0.07 10*3/uL Normal <0.11 [facility] Comment on above: Order Comment: Speci men Type: BLOOD SPECIMEN Ordering Facility: [facility] Address: [address] [place] [address] Performed By: #### 4 537-7 #### [facility] CLIA [id number] [address] [place] [address] [place] Basophils/100 WBC (Bld) 0.6 % Normal [facility] Comment on above: Order Comment: Speci men Type: BLOOD SPECIMEN Ordering Facility: [facility] Address: [address] [place] [address] Performed By: #### 4 537-7 #### [facility] CLIA [id number] [address] [place] [address] [place] Differential cell count method Nom (Bld) Auto Normal [facility] Comment on above: Order Comment: Speci men Type: BLOOD SPECIMEN Ordering Facility: [facility] Address: [address] [place] [address] Performed By: #### 4 537-7 #### [facility] CLIA [id number] [address] [place] [address] [place] Eosinophils (Bld) [#/Vol] 0.14 10*3/uL Normal <0.46 [facility] Comment on above: Order Comment: Speci men Type: BLOOD SPECIMEN Ordering Facility: [facility] Address: [address] [place] [address] Performed By: #### 4 537-7 #### [facility] CLIA [id number] [address] [place] [address] [place] Eosinophils/100 WBC (Bld) 1.1 % Normal [facility] Comment on above: Order Comment: Speci men Type: BLOOD SPECIMEN Ordering Facility: [facility] Address: [address] [place] [address] Performed By: #### 4 537-7 #### [facility] CLIA [id number] [address] [place] [address] [place] Erythrocyte distribution width (RBC) [Ratio] 15.7 % High 11.5-15.0 [facility] Comment on above: Order Comment: Speci men Type: BLOOD SPECIMEN Ordering Facility: [facility] Address: [address] [place] [address] Performed By: #### 4 537-7 #### [facility] CLIA [id number] [address] [place] [address] [place] Hematocrit (Bld) [Volume fraction] 41.7 % Normal 36.0-46.0 [facility] Comment on above: Order Comment: Speci men Type: BLOOD SPECIMEN Ordering Facility: [facility] Address: [address] [place] [address] Performed By: #### 4 537-7 #### [facility] CLIA [id number] [address] [place] [address] [place] Hemoglobin (Bld) [Mass/Vol] 13.2 g/dL Normal 11.5-15.5 [facility] Comment on above: Order Comment: Speci men Type: BLOOD SPECIMEN Ordering Facility: [facility] Address: [address] [place] [address] Performed By: #### 4 537-7 #### [facility] CLIA [id number] [address] [place] [address] [place] Immature granulocytes (Bld) [#/Vol] 0.11 10*3/uL High <0.10 [facility] Comment on above: Order Comment: Speci men Type: BLOOD SPECIMEN Ordering Facility: [facility] Address: [address] [place] [address] Performed By: #### 4 537-7 #### [facility] CLIA [id number] [address] [place] [address] [place] Immature granulocytes/100 WBC (Bld) 0.9 % Normal [facility] Comment on above: Order Comment: Speci men Type: BLOOD SPECIMEN Ordering Facility: [facility] Address: [address] [place] [address] Performed By: #### 4 537-7 #### [facility] CLIA [id number] [address] [place] [address] [place] Lymphocytes (Bld) [#/Vol] 1.82 10*3/uL Normal 1.00-4.00 [facility] Comment on above: Order Comment: Speci men Type: BLOOD SPECIMEN Ordering Facility: [facility] Address: [address] [place] [address] Performed By: #### 4 537-7 #### [facility] CLIA [id number] [address] [place] [address] [place] Lymphocytes/100 WBC (Bld) 14.9 % Normal [facility] Comment on above: Order Comment: Speci men Type: BLOOD SPECIMEN Ordering Facility: [facility] Address: [address] [place] [address] Performed By: #### 4 537-7 #### [facility] CLIA [id number] [address] [place] [address] [place] MCH (RBC) [Entitic mass] 29.5 pg Normal 26.0-34.0 [facility] Comment on above: Order Comment: Speci men Type: BLOOD SPECIMEN Ordering Facility: [facility] Address: [address] [place] [address] Performed By: #### 4 537-7 #### [facility] CLIA [id number] [address] [place] [address] [place] MCHC (RBC) [Mass/Vol] 31.7 g/dL Normal 30.5-36.0 [facility] Comment on above: Order Comment: Speci men Type: BLOOD SPECIMEN Ordering Facility: [facility] Address: [address] [place] [address] Performed By: #### 4 537-7 #### [facility] CLIA [id number] [address] [place] [address] [place] MCV (RBC) [Entitic vol] 93.1 fL Normal 80.0-100.0 [facility] Comment on above: Order Comment: Speci men Type: BLOOD SPECIMEN Ordering Facility: [facility] Address: [address] [place] [address] Performed By: #### 4 537-7 #### [facility] CLIA [id number] [address] [place] [address] [place] Monocytes (Bld) [#/Vol] 1.12 10*3/uL High <0.87 [facility] Comment on above: Order Comment: Speci men Type: BLOOD SPECIMEN Ordering Facility: [facility] Address: [address] [place] [address] Performed By: #### 4 537-7 #### [facility] CLIA [id number] [address] [place] [address] [place] Monocytes/100 WBC (Bld) 9.2 % Normal [facility] Comment on above: Order Comment: Speci men Type: BLOOD SPECIMEN Ordering Facility: [facility] Address: [address] [place] [address] Performed By: #### 4 537-7 #### [facility] CLIA [id number] [address] [place] [address] [place] Neutrophils (Bld) [#/Vol] 8.98 10*3/uL High 1.45-7.50 [facility] Comment on above: Order Comment: Speci men Type: BLOOD SPECIMEN Ordering Facility: [facility] Address: [address] [place] [address] Performed By: #### 4 537-7 #### [facility] CLIA [id number] [address] [place] [address] [place] Neutrophils/100 WBC (Bld) 73.3 % Normal [facility] Comment on above: Order Comment: Speci men Type: BLOOD SPECIMEN Ordering Facility: [facility] Address: [address] [place] [address] Performed By: #### 4 537-7 #### [facility] CLIA [id number] [address] [place] [address] [place] Nucleated RBC (Bld) [#/Vol] 10*3/uL Normal <0.01 [facility] Comment on above: Order Comment: Speci men Type: BLOOD SPECIMEN Ordering Facility: [facility] Address: [address] [place] [address] Performed By: #### 4 537-7 #### [facility] CLIA [id number] [address] [id number] [address] [place] Nucleated RBC/100 WBC (Bld) [Ratio] 0.0 /100 WBC Normal [facility] Comment on above: Order Comment: Speci men Type: BLOOD SPECIMEN Ordering Facility: [facility] Address: [address] [place] [address] Performed By: #### 4 537-7 #### [facility] CLIA [id number] [address] [place] [address] [place] Platelet mean volume (Bld) [Entitic vol] 10.8 fL Normal 9.0-12.7 [facility] Comment on above: Order Comment: Speci men Type: BLOOD SPECIMEN Ordering Facility: [facility] Address: [address] [place] [address] Performed By: #### 4 537-7 #### [facility] CLIA [id number] [address] [place] [address] [place] Platelets (Bld) [#/Vol] 325 10*3/uL Normal 150-400 [facility] Comment on above: Order Comment: Speci men Type: BLOOD SPECIMEN Ordering Facility: [facility] Address: [address] [place] [address] Performed By: #### 4 537-7 #### [facility] CLIA [id number] [address] [place] [address] [place] RBC (Bld) [#/Vol] 4.48 10*6/uL Normal 3.90-5.20 [facility] Comment on above: Order Comment: Speci men Type: BLOOD SPECIMEN Ordering Facility: [facility] Address: [address] [place] [address] Performed By: #### 4 537-7 #### [facility] CLIA [id number] [address] [place] [address] [place] WBC (Bld) [#/Vol] 12.24 10*3/uL High 3.70-11.00 [facility] Comment on above: Order Comment: Speci men Type: BLOOD SPECIMEN Ordering Facility: [facility] Address: [address] [place] [address] Performed By: #### 4 537-7 #### [facility] CLIA [id number] [address] [place] [address] [place] Comprehensive metabolic 2000 panelon 11-22-2023 Albumin [Mass/Vol] 3.6 g/dL Low 3.9-4.9 [facility] Comment on above: Order Comment: Speci men Type: BLOOD SPECIMEN Ordering Facility: [facility] Address: [address] [place] [address] Performed By: #### 4 537-7 #### [facility] CLIA [id number] [address] [place] [address] [place] ALP [Catalytic activity/Vol] 87 U/L Normal 34-123 [facility] Comment on above: Order Comment: Speci men Type: BLOOD SPECIMEN Ordering Facility: [facility] Address: [address] [place] [address] Performed By: #### 4 537-7 #### [facility] CLIA [id number] [address] [place] [address] [place] ALT [Catalytic activity/Vol] 13 U/L Normal 7-38 [facility] Comment on above: Order Comment: Speci men Type: BLOOD SPECIMEN Ordering Facility: [facility] Address: [address] [place] [address] Performed By: #### 4 537-7 #### [facility] CLIA [id number] [address] [place], [place] [id number] [place] Anion gap [Moles/Vol] 9 mmol/L Normal 9-18 [facility] Comment on above: Order Comment: Speci men Type: BLOOD SPECIMEN Ordering Facility: [facility] Address: [address] [place], [place] [id number] Performed By: #### 4 537-7 #### [facility] CLIA [id number] [address] [place] [address] [place] AST [Catalytic activity/Vol] 13 U/L Normal 13-35 [facility] Comment on above: Order Comment: Speci men Type: BLOOD SPECIMEN Ordering Facility: [facility] Address: [address] [place] [address] Performed By: #### 4 537-7 #### [facility] CLIA [id number] [address] [place] [address] [place] Bilirubin [Mass/Vol] 0.3 mg/dL Normal 0.2-1.3 [facility] Comment on above: Order Comment: Speci men Type: BLOOD SPECIMEN Ordering Facility: [facility] Address: [address] [place] [address] Performed By: #### 4 537-7 #### [facility] CLIA [id number] [address] [place] [address] [place] Calcium [Mass/Vol] 9.3 mg/dL Normal 8.5-10.2 [facility] Comment on above: Order Comment: Speci men Type: BLOOD SPECIMEN Ordering Facility: [facility] Address: [address] [place] [address] Performed By: #### 4 537-7 #### [facility] CLIA [id number] [address] [place] [address] [place] Chloride [Moles/Vol] 105 mmol/L Normal 97-105 [facility] Comment on above: Order Comment: Speci men Type: BLOOD SPECIMEN Ordering Facility: [facility] Address: [address] [place] [address] Performed By: #### 4 537-7 #### [facility] CLIA [id number] [address] [place] [address] [place] CO2 [Moles/Vol] 27 mmol/L Normal 22-30 [facility] Comment on above: Order Comment: Speci men Type: BLOOD SPECIMEN Ordering Facility: [facility] Address: [address] [place] [address] Performed By: #### 4 537-7 #### [facility] CLIA [id number] [address] [place] [address] [place] Creatinine [Mass/Vol] 0.90 mg/dL Normal 0.58-0.96 [facility] Comment on above: Order Comment: Kasandra men Type: BLOOD SPECIMEN Ordering Facility: [facility] Address: [address] [place] [address] Performed By: #### 4 537-7 #### [facility] CLIA [id number] [address] [place] [address] [place] Creatinine and Glomerular filtration rate.predicted panel (S/P/Bld) 67 mL/min/1.73m??? Normal >=60 [facility] Comment on above: Order Comment: Kasandra greene Type: BLOOD SPECIMEN Ordering Facility: [facility] Address: [address] [place] [address] Result Comment: Zahida mated Glomerular Filtration Rate (eGFR) is calculated using the 2020 CKD-EPI creatinine equation. This equation utilizes serum creatinine, sex, and age as parameters. The creatinine assay has traceable calibration to isotope dilution-mass spectrometry. Refer to KDIGO guidelines for clinical interpretation. In patients with unstable renal function, e.g. those with acute kidney injury, the eGFR may not accurately reflect actual GFR. Performed By: #### 4 537-7 #### [facility] CLIA [id number] [address] [place] [address] [place] Glucose [Mass/Vol] 176 mg/dL High 74-99 [facility] Comment on above: Order Comment: Kasandra greene Type: BLOOD SPECIMEN Ordering Facility: [facility] Address: [address] [place] [address] Result Comment: The [place] Diabetes Association (ADA) provides guidance for cutoff [...] Standards of Medical Care in Diabetes 2016, [place] [employer]. Diabetes Care. 2016.39(Suppl 1). Performed By: #### 4 537-7 #### [facility] CLIA [id number] [address] [place] [address] [place] Potassium [Moles/Vol] 3.8 mmol/L Normal 3.7-5.1 [facility] Comment on above: Order Comment: Speci men Type: BLOOD SPECIMEN Ordering Facility: [facility] Address: [address] [place] [address] Performed By: #### 4 537-7 #### [facility] CLIA [id number] [address] [place] [address] [place] Protein [Mass/Vol] 6.1 g/dL Low 6.3-8.0 [facility] Comment on above: Order Comment: Speci men Type: BLOOD SPECIMEN Ordering Facility: [facility] Address: [address] [place] [address] Performed By: #### 4 537-7 #### [facility] CLIA [id number] [address] [place] [address] [place] Sodium [Moles/Vol] 141 mmol/L Normal 136-144 [facility] Comment on above: Order Comment: Speci men Type: BLOOD SPECIMEN Ordering Facility: [facility] Address: [address] [place] [address] Performed By: #### 4 537-7 #### [facility] CLIA [id number] [address] [place] [address] [place] Urea nitrogen [Mass/Vol] 17 mg/dL Normal 7-21 [facility] Comment on above: Order Comment: Speci men Type: BLOOD SPECIMEN Ordering Facility: [facility] Address: [address] [place] [address] Performed By: #### 4 537-7 #### [facility] CLIA [id number] [address] [facility] [place] [id number] [place] ESR Westergren method (Bld) [Velocity]on 11-22-2023 ESR (Bld) [Velocity] 33 mm/h High 0-20 [facility] Comment on above: Order Comment: Speci men Type: BLOOD SPECIMENOrdering Facility: [facility] Address: [address] [place] [address] Performed By: #### 4 537-7 ####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 Short term goals: Patient will increase vocal wellness and decrease phono trauma in adherence with clinician prescribed vocal hygiene and wellness program per patient report 80% of his/her day. Patient will increase ability to produce voice without tension within 5 minute conversational task x 80% accuracy as judged by clinician observation and/or patient report. Patient will demonstrate independent use of voice/breathing techniques x 80% accuracy. Patient will increase the balance/strength of the respiratory/laryngeal musculature x 80% accuracy. Recommendations For Therapeutic Interventions: speech/voice exercises, respiratory retraining and vocal hygiene program Patient/family understands and agrees with goals/plan. Potential for improvement: good Factors affecting prognosis: none Discussed plan of care with: patient Discussed risks/benefits with patient/caregiver. Patient/caregiver agreeable with plan of care. Plan of care was developed with input and agreement by the patient. 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 Patient appears to be an excellent candidate for therapy which will target vocal wellness, respiratory retraining via RMT and voice rebalancing. Pending therapy outcome patient may be a candidate for a vocal cord augmentation procedure. Voice quality based on the GRBAS scale: 0=absent; 1=mild; 2=moderate; 3=severe Grade: 1-2 Roughness: 1-2 Breathiness: 0 Asthenia: 0 Strain: 1-2 Contributing Factors: supraglottic compression , inadequate breath support , decreased neuromuscular control of speech/swallow muscles , habitual behaviors that misuse/abuse the voice and inadequate intake of fluids for hydration NOMS Score: mild-moderate: level 5 Treatment recommendations: treatment indicated (see goals below) Reason For Visit An interactive audio and video telecommunication system which permits real time communications between the patient (at the originating site) and provider (at the distant site) was utilized to provide this telehealth service. Verbal consent was requested and obtained from KAREN FALK on this date, 03/16/2023 02:15 PM , for a telehealth visit. Adult Risk Screening There are no spiritual/cultural practices/values/needs that are important to know Initial Fall Risk Screening: KAREN has not fallen in the last 6 months. Pain Scale: On a scale of 0 to 10, the patient rates the pain at 0. Gonzalez Learner(s) are identified by the patient as person(s) most likely to participate in providing care, such as managing medications or taking them to doctors? appointments. Primary Language for learning: Kinyarwanda. Insurance Insurance reviewed Visit number: 1 Onset Date: 2022 Medicare Certification Period: Beginnin2022 Endin2022 Subjective Living Environment: home - patient lives with spouse. Patient arrival: independent Voice evaluation: Reason for Referral: KAREN FALK is a 72 year female referred to Dr. Mojica [facility] by Dr. Small for chronic hoarseness. She reports this has been ongoing for 1+ years and is intermittent - with good days and bad days. She was seen by Dr. Small from ENT who performed a scope exam and noted lazy vocal cords with incomplete closure. No masses or lesions were seen. She is able to talk louder with effort - but this is not easy for her to sustain. Her voice is consistently hoarse most days with variability throughout the day. She has hearing loss in the left ear - worsening. She wore hearing aids for this and she found no benefit. Her right ear is her better hearing ear. Her last audiogram was one year ago. 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 She has trouble breathing due to a right sided breast cancer s/p XRT. 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 She has poor breath support. She ambulates with a wheelchair for any significant distance and uses supplemental O2 most days and at night. PMH: right breast cancer s/p radiation, left SNHL, Tami's disease Social: Tobacco - none; ETOH - none; Retired Referred by: Dr. Mojica Prior level of function: within functional limits Voice Use Inventory: Voice misuse/abuse: yes cough throat clear Exposure to noise: no Exposure to respiratory irritan (more content not included)... [facility] CHEST WO IVCONon 03-14-20 [facility] SPIROMETRY BASELINE ONLYon 0 03-08-2023 EUN86-30% PRE (L/S) 1.19 L/S [facility] FEV1 PRE (L) 1.41 L [facility] FEV1/FVC PRE (%) 77 % [facility] FVC PRE (L) 1.82 L [facility] PEF PRE (L/S) 4.85 L/S [facility] Initial Visit (Otolaryngolog y)on 03-07-2023 Initial Visit (Otolaryngology) Diagnoses/Problems Non-smoker (V49.89) (Z78.9) BMI 28.0-28.9,adult (V85.24) (Z68.28) Hoarseness of voice (784.42) (R49.0) 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 You need speech therapy as part of your treatment. We will help you to schedule your speech appointment after your visit or you can call Speech Therapy Scheduling at [phone]. Please follow up pending the outcome of speech therapy. 2. Need audiogram Welcome to Dr. Mojica?s clinic. We are here to assist you through your ENT care at [facility]. Dr. Mojica is an ENT surgeon who specializes in voice, airway and swallowing issues. This means that she specializes in taking care of patients with complex voice, airway and swallowing problems. Dr. Mojica's office number is [phone]. Please use this number to contact her and her care team regardless of which office you use to access care. This number is the most direct way to communicate with all the members of the care team. Dr. Mojica?s unit secretary answers the office phone from 9am-4pm Mon-Tue. Call [phone] and push 2. She can help you with scheduling of appointments, general questions and information. You may need to leave a message if she is helping another patient. In this case, someone from the team will call you back the same day if you leave your message before 3pm, or the next business morning. Dr. Mojica?s nurse and can be reached by calling [phone]. We make every effort to return phone calls the same day. If you are in need of urgent assistance after hours, please call [phone] and ask for ENT medical office receptionist assistant. Dr. Mojica works closely with speech therapists as they work together to help solve your issues with speech and swallowing. You may see a speech therapist during your appointment if Dr. Mojica feels this is needed. If you need to reach speech therapy to talk with a therapist or to schedule an appointment, please call [phone]. Others who may be included in your care are dieticians, social workers, audiologists, neurologists, and physical therapists. Dr. Mojica will provide these referrals as needed. Please let her know if you would like to request a specific referral. For your convenience, Dr. Mojica sees patients at different [facility] locations including the [facility] at [facility], and [facility] at the [facility]. While we try to make your appointments as convenient as possible, occasionally a visit to another location may be necessary to provide the best care for you. Dr. Mojica makes every effort to run on time for your appointments. Therefore, if you are more than 30 minutes late unrelated to a scan or another appointment such therapy or audiology, your appointment will need to be rescheduled to another day. We appreciate your understanding. We look forward to working with you to meet your healthcare goals. By signing my name below, IErnestine Scribe, attest that this documentation has been prepared under the direction and in the presence of Dr. Vicente Mojica MD. All medical record entries made by the Scribe were at my direction and personally dictated by me. I have reviewed the chart and agree that the record accurately reflects my personal performance of the history, physical exam, discussion and plan. 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 She will work with BILLING ASSOCIATE on voice therapy to improve her breath support and vocal hygiene measures . If there is no improvement in her voice changes, we will consider a vocal cord injection. 2. She will send us a copy of her audiogram as her left sided hearing loss is contributing to her voice changes.? if autoimmune mediated. 3. The patient?s questions were answered. Chief Complaint Voice History of Present IllnessKAREN FALK is a 72 year female referred to me today by Dr. Small for chronic hoarseness. This has been ongoing for 1 year. This is intermittent - with good days and bad days. She was seen by an ENT near her home who performed a scope exam and noted lazy vocal cords with incomplete closure. No masses or lesions were seen. She is able to talk louder with effort - but this is not easy for her to sustain.. Her voice is consistent (more content not included)... Normal [facility] C-REACTIVE PROTEIN (CRP)on 0 04-01-2022 CRP [Mass/Vol] 0.6 mg/dL <0.9 mg/dL [facility] CBC W Auto Differential pane l (Bld)on 04-01-2022 Abs Immature Gran 0.05 k/uL <0.10 k/uL [facility] Basophils (Bld) [#/Vol] 0.05 10*3/uL <0.11 k/uL [facility] Basophils/100 WBC (Bld) 0.6 % [facility] Differential cell count method Nom (Bld) Auto [facility] Eosinophils (Bld) [#/Vol] 0.24 10*3/uL <0.46 k/uL [facility] Eosinophils/100 WBC (Bld) 2.9 % [facility] Erythrocyte distribution width (RBC) [Ratio] 16.2 % High 11.5 - 15.0 % [facility] Hematocrit (Bld) [Volume fraction] 38.0 % 36.0 - 46.0 % [facility] Hemoglobin (Bld) [Mass/Vol] 11.6 g/dL 11.5 - 15.5 g/dL [facility] Immature Gran % 0.6 % [facility] Lymphocytes (Bld) [#/Vol] 1.96 10*3/uL 1.00 - 4.00 k/uL [facility] Lymphocytes/100 WBC (Bld) 23.8 % [facility] MCH (RBC) [Entitic mass] 27.6 pg 26.0 - 34.0 pg [facility] MCHC (RBC) [Mass/Vol] 30.5 g/dL 30.5 - 36.0 g/dL [facility] MCV (RBC) [Entitic vol] 90.5 fL 80.0 - 100.0 fL [facility] Monocytes (Bld) [#/Vol] 0.99 10*3/uL High <0.87 k/uL [facility] Monocytes/100 WBC (Bld) 12.0 % [facility] Neutrophils (Bld) [#/Vol] 4.96 10*3/uL 1.45 - 7.50 k/uL [facility] Neutrophils/100 WBC (Bld) 60.1 % [facility] Nucleated RBC (Bld) [#/Vol] 10*3/uL <0.01 k/uL [facility] Nucleated RBC/100 WBC (Bld) [Ratio] 0.0 /100 WBC [facility] Platelet mean volume (Bld) [Entitic vol] 11.3 fL 9.0 - 12.7 fL [facility] Platelets (Bld) [#/Vol] 371 10*3/uL 150 - 400 k/uL [facility] RBC (Bld) [#/Vol] 4.20 10*6/uL 3.90 - 5.2 0 m/uL [facility] WBC (Bld) [#/Vol] 8.25 10*3/uL 3.70 - 11. 00 k/uL [facility] Comprehensive metabolic 2000 panelon 04-01-2022 Albumin [Mass/Vol] 3.9 g/dL 3.9 - 4.9 g/dL [facility] ALP [Catalytic activity/Vol] 110 U/L 34 - 123 U/L [facility] ALT [Catalytic activity/Vol] 12 U/L 7 - 38 U/L [facility] Anion gap [Moles/Vol] 12 mmol/L 9 - 18 mmol/L [facility] AST [Catalytic activity/Vol] 16 U/L 13 - 35 U/L [facility] Bilirubin [Mass/Vol] 0.3 mg/dL 0.2 - 1.3 mg/dL [facility] Calcium [Mass/Vol] 10.1 mg/dL 8.5 - 10. 2 mg/dL [facility] Chloride [Moles/Vol] 104 mmol/L 97 - 105 mmol/L [facility] CO2 [Moles/Vol] 24 mmol/L 22 - 30 mmol/L [facility] Creatinine [Mass/Vol] 0.77 mg/dL 0.58 - 0.96 mg/dL [facility] Estimated Glomerular Filtration Rate 82 mL/min/1.73m >=60 mL/min/1.73m [facility] Glucose [Mass/Vol] 96 mg/dL 74 - 99 mg/dL [facility] Potassium [Moles/Vol] 4.5 mmol/L 3.7 - 5.1 mmol/L [facility] Protein [Mass/Vol] 6.5 g/dL 6.3 - 8.0 g/dL [facility] Sodium [Moles/Vol] 140 mmol/L 136 - 144 mmol/L [facility] Urea nitrogen [Mass/Vol] 12 mg/dL 7 - 21 mg/dL [facility] UA DIP, URINE (POC)on 2021 BILIRUBIN UA (POCT) Negative Negative [facility] CLARITY UA (POCT) Clear [facility] COLOR UA (POCT) Yellow [facility] GLUCOSE UA (POCT) Negative Negative mg/dL [facility] HEMOGLOBIN/BLOOD UA (POCT) Negative Negative [facility] KETONE UA (POCT) Negative Negative mg/dL [facility] LEUKOCYTES UA (POCT) Trace Abnormal Negative [facility] NITRITE UA (POCT) Positive Abnormal Negative [facility] PH UA (POCT) 5.5 4.5 - 8.0 [facility] Protein Ql (U) Negative Negative mg/dL [facility] SPECIFIC GRAVITY UA (POCT) >=1.030 1.005 - 1.030 [facility] UROBILINOGEN UA (POCT) 0.2 E.U./dL Normal E.U./dL [facility] CNOVon 08-21-2021 CNOV Office Visit (AGCARD POB) -------- KAREN FALK ([id number]) 1950 [facility] Date Time Provider Department 08/21/21 9:00 AM RADHA JACKSON During your visit today, we recorded the following information about you: Pulse Respiration Blood pressure Weight 83/minute 18/minute 138/78 83.9 kg Height 1.626 m Gloria Verde MA 08/21/2021 8:57 AM Signed Patient complains of shortness of breath with mild activity. Radha Jackson MD 08/21/2021 6:56 PM Signed PRIMARY CARE PHYSICIAN: Eugene Alfonso MD [address] [address] Patient Care Team: Eugene Alfonso as PCP - General (Gerontology) Adarsh Man as Specialty Yam Curer (Cardiology) Radha Jackson MD as Specialty Yam Curer (Cardiology) Radha Rae V as Referring (Internal Medicine) Amor Escobar MD as Specialty Yam Curer (Rheumatology) CHIEF COMPLAINT: Follow up for arrhythmia HISTORY OF PRESENT ILLNESS: Ms. Falk is a 71 year old female who presents today for a cardiovascular medicine follow-up visit. History copied from previous notes, edited as needed: Dr. Jackson's office notes 03/19/2019:?Ms. 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 I [...] will be contacting Ms. Falk to schedule t (more content not included)... Normal [facility] Samara 02-11-2021 BLUE Telephone (AGROSS) -------- KAREN FALK ([id number]) 1950 F [facility] Date Time Provider Department 02/11/21 PATIENCE ALEJO During your visit today, we recorded the following information about you: Patience Alejo MD 02/11/2021 1:42 PM Signed Patient contacted by us for phone followup after review of CT and CT PET scan with our radiologist. The two areas in question on PET scan are both improving/smaller when comparing CT Dec [address] January 13 and therefore thought to be inflammatory. No biopsy recommended at this time and no further followup with me needed. Explained to them I will update Dr. Sheth as well. They have no further questions. Allergies As of Date: 02/11/2021 (No Known Allergies) Date Reviewed: 02/10/2021 Reviewed by: Ramila (Sanitation Worker Hosing Machinery) Adele - Fully Assessed Reason for Visit: Results [95] Prescriptions as of 02/11/2021 Sig: BRILINTA 90 MG TABLET Take 90 mg by mouth twice monster* CITALOPRAM 10 MG TABLET Take 10 mg by mouth once jose luis* METOPROLOL TARTRATE 25 MG TAB* Take 12.5 mg by mouth twice d* COLCHICINE 0.6 MG TABLET Take 0.6 mg by mouth once monster* PROPYLENE GLYCOL 0.6 % EYE DR* Use 1 Drop in both eyes four * LIPITOR 10 MG TABLET Take one(1) tablet daily. TYLENOL 325 MG TABLET Take two(2) tablets every fou* THERAPEUTIC MULTIVITAMIN TABL* Take one(1) tablet daily. Problem List As Of Date 02/11/2021 Noted Resolved Acute gastritis without mention of hemorrhage [*08/30/2006 05/15/2019 DIAPHRAGMATIC HERNIA [K44.9] 08/30/2006 Breast cancer, stage 4 (HCC) [C50.919] 09/16/2009 10/27/2015 Tear film insufficiency, unspecified - Both Eye*08/28/2014 08/26/2016 Lens replaced by other means - Both Eyes [Z96.1]08/28/2014 08/26/2016 Other vitreous opacities - Both Eyes [H43.399] 08/28/2014 08/26/2016 Hyperlipidemia [E78.5] 08/28/2014 Floater, vitreous [H43.399] 08/22/2015 08/26/2016 Dry eye syndrome [H04.129] 08/22/2015 08/26/2016 Pseudophakia of both eyes [Z96.1] 08/22/2015 Colon cancer screening [Z12.11] 09/11/2015 09/11/2015 Vitreous floaters of both eyes [H43.393] 08/26/2016 Dry eye syndrome of both eyes [H04.123] 08/26/2016 Personal history of breast cancer [Z85.3] 01/24/2017 Punctate keratitis, 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] 08/31/2017 History of colonic polyps [Z86.010] 07/24/2018 Family history of colon cancer in father [Z80.0]07/24/2018 Obstructive sleep apnea [G47.33] 08/30/2018 Shortness of breath [R06.02] 10/27/2016 Paroxysmal atrial fibrillation (HCC) [I48.0] 03/14/2019 05/15/2019 Palpitations [R00.2] 03/14/2019 Nonrheumatic mitral (valve) insufficiency [I34.*03/14/2019 Nonrheumatic tricuspid (valve) insufficiency [I*03/14/2019 Obesity, Class I, BMI 30-34.9 [E66.9] 03/19/2019 At risk for stroke [Z91.89] Anticoagulant long-term use [Z79.01] Persistent atrial fibrillation (HCC) [I48.19] 05/15/2019 Status post catheter ablation of atrial fibrill* Encounter Status:Closed by PATIENCE ALEJO MD on 02/11/21 [facility] 02-10-2021 [facility] Office Visit (BRUCE JEAN) -------- KAREN FALK ([id number]) 1950 F [facility] Date Time Provider Department 02/10/21 2:30 PM PATIENCE ALEJO During your visit today, we recorded the following information about you: Pulse Blood pressure Height 69/minute 124/68 1.626 m Patience Alejo MD 02/11/2021 1:26 PM Addendum Consult H AND P Karen A White is a 70 year old female here [...] was taken to the emergency room in [place] in November 2020. 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 Man by her report. She is [...] for progressive generalized weakness, fatigability, and associated (more content not included)... Normal [facility] OBSOLETEon 08-29-2020 OBSOLETE Refill (AGCARDPOB) -------- DEYAKAREN Paniagua ([id number]) 1950 F [facility] Date Time Provider Department 08/29/20 RAMILA ROSENTHAL (WEBMASTER[facility]) AGCARDPOB During your visit today, we recorded the following information about you: Amina Becerra LPN 08/29/2020 10:55 AM Signed Patient's request for medication is as follows: Pending Prescriptions Disp Refills APIXABAN 5 MG TABLET 180 tablet 3 Sig: Take 1 tablet by mouth twice daily. JUAN M: No Last seen in the office on 08/10/2020. Prescription(s) as above. Please process accordingly. MYKEL White APRN.[facility] 08/29/2020 2:59 PM Signed I refilled eliquis for patient. She has ibuprofen 200 mg every 8 hours as needed on her med list which increases bleeding risk. Please call patient to inform her about this and find out how much ibuprofen she takes and for what reason and whether she could get take Tylenol instead. Thanks. JACOBO Garces) Hamzah 08/29/2020 3:03 PM Signed Called and spoke to patient. Instructions given per Ninfa Diaz CNP. Patient states she does not take Ibuprofen often and will switch to Tylenol when needed. Christiane Cao) Hamzah Allergies As of Date: 08/29/2020 (No Known Allergies) Date Reviewed: 08/20/2020 Reviewed by: Ramila (Sheetfed Press Operator.[employer]) Carlos - Fully Assessed Reason for Visit: Refill Request [94] Order(s):apixaban (ELIQUIS) 5 mg tab(s)Take 1 tablet by mouth twice daily.Disp: 180 tabletRfl: 3 Prescriptions as of 08/29/2020 Sig: APIXABAN 5 MG TABLET Take 1 tablet by mouth twice * IBUPROFEN 200 MG TABLET Take 400 mg by mouth every 8 * PROPYLENE GLYCOL 0.6 % EYE DR* Use 1 Drop in both eyes four * LIPITOR 10 MG TABLET Take one(1) tablet daily. TYLENOL 325 MG TABLET Take two(2) tablets every fou* THERAPEUTIC MULTIVITAMIN TABL* Take one(1) tablet daily. Problem List As Of Date 08/29/2020 Noted Resolved Acute gastritis without mention of hemorrhage [*08/30/2006 05/15/2019 DIAPHRAGMATIC HERNIA [K44.9] 08/30/2006 Breast cancer, stage 4 (HCC) [C50.919] 09/16/2009 10/27/2015 Tear film insufficiency, unspecified - Both Eye*08/28/2014 08/26/2016 Lens replaced by other means - Both Eyes [Z96.1]08/28/2014 08/26/2016 Other vitreous opacities - Both Eyes [H43.399] 08/28/2014 08/26/2016 Hyperlipidemia [E78.5] 08/28/2014 Floater, vitreous [H43.399] 08/22/2015 08/26/2016 Dry eye syndrome [H04.129] 08/22/2015 08/26/2016 Pseudophakia of both eyes [Z96.1] 08/22/2015 Colon cancer screening [Z12.11] 09/11/2015 09/11/2015 Vitreous floaters of both eyes [H43.393] 08/26/2016 Dry eye syndrome of both eyes [H04.123] 08/26/2016 Personal history of breast cancer [Z85.3] 01/24/2017 Punctate keratitis, 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] 08/31/2017 History of colonic polyps [Z86.010] 07/24/2018 More... Family history of colon cancer in father [Z80.0]07/24/2018 More... Obstructive sleep apnea [G47.33] 08/30/2018 Shortness of breath [R06.02] 10/27/2016 Paroxysmal atrial fibrillation (HCC) [I48.0] 03/14/2019 05/15/2019 Palpitations [R00.2] 03/14/2019 Nonrheumatic mitral (valve) insufficiency [I34.*03/14/2019 Nonrheumatic tricuspid (valve) insufficiency [I*03/14/2019 Obesity, Class I, BMI 30-34.9 [E66.9] 03/19/2019 At risk for stroke [Z91.89] More... Anticoagulant long-term use [Z79.01] More... Persistent atrial fibrillation (HCC) [I48.19] 05/15/2019 Status post catheter ablation of atrial fibrill* More... Prescriptions ordered this encounter Disp Refills Start End APIXABAN 5 MG TABLET 180 * 3 08/29/2020 Route: ORAL Sig: Take 1 tablet by mouth twice daily. Medications Discontinued During This Encounter Prescriptions - apixaban (ELIQUIS) 5 mg tab(s) (Discontinued) Take 1 tablet by mouth twice daily. Encounter Status:Closed by NINFA VÁSQUEZ on 08/29/20 Normal [facility] Basic Panelon 05-16-2019 Creatinine [Mass/Vol] 0.99 mg/dL High 0.51-0.95 [facility] Comment on above: Performed By: #### P 8 #### [address] [address] Anion gap [Moles/Vol] 8 mmol/L Normal 8-16 [facility] Comment on above: Performed By: #### P 8 #### [address] [address] CO2 [Moles/Vol] 26 mmol/L Normal 21-32 [facility] [place] [facility] Comment on above: Performed By: #### P 8 #### [address] [address] Glucose [Mass/Vol] 123 mg/dL High 70-99 [facility] Comment on above: Performed By: #### P 8 #### [facility] [address] [place], [place] [address] Urea nitrogen [Mass/Vol] 20 mg/dL High 7-18 [facility] Comment on above: Performed By: #### P 8 #### [facility] [address] [place], [place] [address] Calcium [Mass/Vol] 8.6 mg/dL Normal 8.5-10.1 [facility] Comment on above: Performed By: #### P 8 #### [facility] [address] [place], [place] [address] Chloride [Moles/Vol] 106 mmol/L Normal 98-107 [facility] Comment on above: Performed By: #### P 8 #### [facility] [address] [place] [address] Potassium [Moles/Vol] 4.2 mmol/L Normal 3.5-5.1 [facility] Comment on above: Performed By: #### P 8 #### [facility] [address] [place] [address] Sodium [Moles/Vol] 136 mmol/L Normal 136-145 [facility] Comment on above: Performed By: #### P 8 #### [facility] [address] [place] [address] Hemogramon 05-16-2019 Erythrocyte distribution width (RBC) [Ratio] 14.9 % High 11.7-14.4 [facility] Comment on above: Performed By: #### C BC1 #### [facility] [address] [place] [address] Hematocrit (Bld) [Volume fraction] 38.1 % Normal 34.1-44.9 [facility] Comment on above: Performed By: #### C BC1 #### [facility] [address] [place] [address] Hemoglobin (Bld) [Mass/Vol] 12.0 g/dL Normal 11.2-15.7 [facility] Comment on above: Performed By: #### C BC1 #### [facility] [address] [place] [address] MCH (RBC) [Entitic mass] 27.8 pg Normal 25.6-32.2 [facility] Comment on above: Performed By: #### C BC1 #### [facility] [address] [place] [address] MCHC (RBC) [Mass/Vol] 31.5 % Low 31.6-34.8 [facility] Comment on above: Performed By: #### C BC1 #### [facility] [address] [place] [address] MCV (RBC) [Entitic vol] 88.4 fL Normal 79.4-94.8 [facility] Comment on above: Performed By: #### C BC1 #### [facility] [address] [place] [address] Platelet mean volume (Bld) [Entitic vol] 11.1 fL Normal 9.4-12.3 [facility] Comment on above: Performed By: #### C BC1 #### [facility] [address] [place] [address] Platelets (Bld) [#/Vol] 271 thou/cmm Normal 182-369 [facility] Comment on above: Performed By: #### C BC1 #### [place] [address] RBC (Bld) [#/Vol] 4.31 mil/cmm Normal 3.93-5.22 [facility] Comment on above: Performed By: #### C BC1 #### [place] [address] RDW SD 48.5 fl High 36.4-46.3 [facility] Comment on above: Performed By: #### C BC1 #### [place] [address] WBC (Bld) [#/Vol] 11.30 thou/cmm High 3.98-10.04 [facility] Comment on above: Performed By: #### C BC1 #### [place] [address] MDRD GFRon 05-16-2019 GFR/1.73 sq M predicted among non-blacks MDRD (S/P/Bld) [Vol rate/Area] 55.30 mL/min/{1.73_m2} Normal >60mL/min/1.7 3m2 [facility] Comment on above: Result Comment: If t he patient is , multiply the result by 1.210. Performed By: #### G FR #### [place] [address] ABO/Rh Confirmationon 2018 ABO group Nom (Bld) A Normal [facility] Comment on above: Performed By: #### A NINOSKA #### [place] [address] RH Type Positive Normal [facility] Comment on above: Performed By: #### A NINOSKA #### [facility] [address] [place], [place] [address] ACT Venous Panel (i-STAT)on 05-15-2019 Kaolin ACT (i-STAT) 175 sec High 74-137 [facility] Comment on above: Performed By: #### A CTVS #### [facility] [address] [place], [place] [address] Basic Panelon 05-15-2019 Creatinine [Mass/Vol] 1.00 mg/dL High 0.51-0.95 [facility] Comment on above: Performed By: #### P 8 #### [facility] [address] [place], [place] [address] Anion gap [Moles/Vol] 7 mmol/L Low 8-16 [facility] Comment on above: Performed By: #### P 8 #### [facility] [address] [place], [place] [address] CO2 [Moles/Vol] 29 mmol/L Normal 21-32 [facility] [place] [facility] Comment on above: Performed By: #### P 8 #### [facility] [address] [place], [place] [address] Glucose [Mass/Vol] 98 mg/dL Normal 70-99 [facility] Comment on above: Performed By: #### P 8 #### [facility] [address] [place], [place] [address] Urea nitrogen [Mass/Vol] 17 mg/dL Normal 7-18 [facility] Comment on above: Performed By: #### P 8 #### [facility] [address] [place], [place] [address] Calcium [Mass/Vol] 9.3 mg/dL Normal 8.5-10.1 [facility] Comment on above: Performed By: #### P 8 #### [facility] [address] [place], [place] [address] Chloride [Moles/Vol] 107 mmol/L Normal 98-107 [facility] Comment on above: Performed By: #### P 8 #### [facility] [address] [place], [place] [address] Potassium [Moles/Vol] 3.8 mmol/L Normal 3.5-5.1 [facility] Comment on above: Performed By: #### P 8 #### [facility] [address] [place] [address] Sodium [Moles/Vol] 139 mmol/L Normal 136-145 [facility] Comment on above: Performed By: #### P 8 #### [facility] [address] [place] [address] Hemogramon 05-15-2019 Erythrocyte distribution width (RBC) [Ratio] 14.6 % High 11.7-14.4 [facility] Comment on above: Performed By: #### C BC1 #### [facility] [address] [place] [address] Hematocrit (Bld) [Volume fraction] 43.0 % Normal 34.1-44.9 [facility] Comment on above: Performed By: #### C BC1 #### [facility] [address] [place] [address] Hemoglobin (Bld) [Mass/Vol] 13.5 g/dL Normal 11.2-15.7 [facility] Comment on above: Performed By: #### C BC1 #### [facility] [address] [place] [address] MCH (RBC) [Entitic mass] 27.6 pg Normal 25.6-32.2 [facility] Comment on above: Performed By: #### C BC1 #### [facility] [address] [place] [address] MCHC (RBC) [Mass/Vol] 31.4 % Low 31.6-34.8 [facility] Comment on above: Performed By: #### C BC1 #### [facility] [address] [place] [address] MCV (RBC) [Entitic vol] 87.9 fL Normal 79.4-94.8 [facility] Comment on above: Performed By: #### C BC1 #### [facility] [address] [place] [address] Platelet mean volume (Bld) [Entitic vol] 11.1 fL Normal 9.4-12.3 [facility] Comment on above: Performed By: #### C BC1 #### [facility] [address] [place] [id number] Platelets (Bld) [#/Vol] 283 thou/cmm Normal 182-369 [facility] Comment on above: Performed By: #### C BC1 #### [facility] [address] [place] [address] RBC (Bld) [#/Vol] 4.89 mil/cmm Normal 3.93-5.22 [facility] Comment on above: Performed By: #### C BC1 #### [place] [address] RDW SD 47.1 fl High 36.4-46.3 [facility] Comment on above: Performed By: #### C BC1 #### [place] [address] WBC (Bld) [#/Vol] 8.30 thou/cmm Normal 3.98-10.04 [facility] Comment on above: Performed By: #### C BC1 #### [place] [address] Type and Screenon 05-15-2019 ABO group Nom (Bld) A Normal [facility] Comment on above: Performed By: #### T &S #### [place] [address] Comment See Below Normal [facility] Comment on above: Result Comment: Scre en &/or Xmatch expires in 3 days at 12 midnight. Redraw patient at that time. Performed By: #### T &S #### [place] [address] RH Type Positive Normal [facility] Comment on above: Performed By: #### T &S #### [facility] [address] [place] [address] FOOT COMPLETE RTon [address] [place] [address] [address] [place] [address] Patient: KAREN FALK Phone#: : 1950 Age: 67 Gender: F Pt. Type: Out Account: [id number] Location: Ordering: [facility] Exam Date: 09/16/2017/12:27 Family Phys: TULIO GILES Charge Code: [id number] Physician: [place] Order #: [id number] DLP Dose#: PROCEDURE: X-RAY FOOT RT COMPLETE MIN 3 VIEWS COMPARISON: None. INDICATIONS: Pain FINDINGS: BONES: Normal. No significant arthropathy or acute abnormality. SOFT TISSUES: Negative. No visible soft tissue swelling. EFFUSION: None visible. OTHER: Negative. CONCLUSION: No acute disease. Dictated by: Tri Martino MD on 09/16/2017 at 12:53 Approved by: Tri Martino MD on 09/16/2017 at 12:53 Normal [facility] FOOT COMPLETE LTon 7 FOOT COMPLETE LT [facility] [address] [place] [address] Patient: KAREN FALK Phone#: : 1950 Age: 67 Gender: F Pt. Type: Out Account: [id number] Location: Ordering: [facility] Exam Date: 08/25/2017/9:49 Family Phys: TULIO GILES Charge Code: [id number] Physician: [place] Order #: [id number] DLP Dose#: PROCEDURE: X-RAY FOOT LT COMPLETE MIN 3 VIEWS COMPARISON: [facility], XR, FOOT LT COMPLETE, 03/18/2017, 13:23. [facility], XR, FOOT LT COMPLETE, 06/03/2017, 11:39. [facility], XR, FOOT LT COMPLETE, 07/13/2017, 12:25. INDICATIONS: Fracture metarsal bone FINDINGS: BONES: Fracture of proximal fifth metatarsal is present. The fracture line is still well- visualized. There is sclerosis along the fracture margin. SOFT TISSUES: Negative. No visible soft tissue swelling. EFFUSION: None visible. OTHER: Negative. CONCLUSION: Fracture at the proximal fifth metatarsal without interval change since prior exam. Sclerosis at the fracture margins is present. The fracture line is still well-visualized. Dictated by: Tri Martino MD on 08/25/2017 at 10:33 Approved by: Tri Martino MD on 08/25/2017 at 10:33 Normal [facility] FOOT COMPLETE LTon 7 FOOT COMPLETE LT [facility] [address] [place], [place] [address] Patient: KAREN FALK Phone#: : 1950 Age: 67 Gender: F Pt. Type: Out Account: [id number] Location: Ordering: [facility] Exam Date: 07/13/2017/12:25 Family Phys: TULIO GLIES Charge Code: [id number] Physician: [place] Order #: [id number] DLP Dose#: PROCEDURE: X-RAY FOOT COMPLETE MIN 3 VIEWS COMPARISON: [facility], XR, FOOT LT COMPLETE, 06/03/2017, 11:39. INDICATIONS: Recheck fracture FINDINGS: BONES: Transverse fracture at the base of the fifth metatarsal again is identified. Position and alignment is stable. There is no significant callus identified. SOFT TISSUES: Negative. No visible soft tissue swelling. EFFUSION: None visible. OTHER: Negative. CONCLUSION: 1. Stable position at the site of fracture the base of the fifth metatarsal. There is no significant callus. Dictated by: Tri Martino MD on 07/13/2017 at 15:58 Approved by: Tri Martino MD on 07/13/2017 at 15:58 [facility] FOOT COMPLETE LTon 7 FOOT COMPLETE LT [facility] [address] [place], [place] [address] Patient: KAREN FALK Phone#: : 1950 Age: 67 Gender: F Pt. Type: Out Account: [id number] Location: Ordering: [facility] Exam Date: 06/03/2017/11:39 Family Phys: TULIO GILES Charge Code: [id number] Physician: [place] Order #: [id number] DLP Dose#: PROCEDURE: X-RAY FOOT LT COMPLETE MIN 3 VIEWS COMPARISON: [facility], XR, FOOT LT COMPLETE, 03/18/2017, 13:23. INDICATIONS: Left foot pain FINDINGS: BONES: Subacute nondisplaced fracture at the base of the fifth metatarsal is identified. In retrospect there is suggestion of minimal cortical disruption in similar location on prior exam. No acute abnormality is identified. SOFT TISSUES: Negative. No visible soft tissue swelling. EFFUSION: None visible. OTHER: Negative. CONCLUSION: Subacute nondisplaced fracture of the proximal fifth metatarsal. Dictated by: Tri Martino MD on 06/03/2017 at 12:15 Approved by: Tri Martino MD on 06/03/2017 at 12:15 Normal [facility] Office Visit: [facility] 05-30-20 17 Fall risk assessment No [facility] Work Phone: Protein mass conc Done [facility] Work Phone: Office Visiton 11-30-2016 Protein mass conc Done [facility] Work Phone: Office Visit: [facility] 10-27-20 16 Tobacco smoking status NHIS Never smoker [facility] Work Phone: Replaced Document: Midmark E CG Observationson 10-27-2016 EKG QRS axis 22 deg [facility] Work Phone: Interpretation Sinus Rhythm WITHIN NORMAL LIMITS [facility] Work Phone: P [place] 44 deg [facility] Work Phone: TX Interval 184 ms [facility] Work Phone: QRS Duration 92 ms [facility] Work Phone: QT Interval new path ms [facility] Work Phone: QTc Brink 426 ms [facility] Work Phone: T [place] 33 deg [facility] Work Phone: Lab Report: CBC W/Diff, Auto - EPLAB Onlyon 05-01-2015 Absolute Neut 4.8 X10 3/UL 2.0-7.7 [facility] Work Phone: Basophils/100 WBC (Bld) 1.0 % 0-1 [facility] Work Phone: Eosinophils/100 WBC (Bld) 2.4 % 0-5 [facility] Work Phone: Erythrocyte distribution width Ratio (RBC) 13.8 % 11.6-14.6 [facility] Work Phone: Hematocrit Volume Fraction (Bld) 38.1 % 37-47 [facility] Work Phone: Hemoglobin mass conc (Bld) 12.9 g/dL 12.0-15.0 [facility] Work Phone: Lymphocytes/100 WBC (Bld) 29.4 % 19-41 [facility] Work Phone: MCH Entitic mass (RBC) 29.2 pg 27.0-32.0 [facility] Work Phone: MCHC mass conc (RBC) 33.8 g/dL 32-36 [facility] Work Phone: MCV Entitic volume (RBC) 86.4 fL 81-99 [facility] Work Phone: Monocytes/100 WBC (Bld) 8.6 % 0-10 [facility] Work Phone: Neutrophils/100 WBC (Bld) 58.5 % 47-70 [facility] Work Phone: Platelet mean volume Entitic volume (Bld) 7.1 fL 6.2-12.0 [facility] Work Phone: Platelets #/vol (Bld) 250 10*3/mm3 150-450 [facility] Work Phone: RBC #/vol (Bld) 4.41 10*6/uL 4.2-5.4 [facility] Work Phone: WBC #/vol (Bld) 8.2 10*3/uL 4.4-11.0 [facility] Work Phone: Lab Report: [facility] jc Profilon 05-01-2015 Albumin mass conc 3.6 g/dL 3.4-5.0 [facility] Work Phone: Albumin/Globulin mass ratio 1.2 {ratio} 0.9-2.4 [facility] Work Phone: ALP enzyme act/vol (Bld) 108 U/L 50-136 [facility] Work Phone: ALT enzyme act/vol 33 U/L 12-78 [facility] Work Phone: Anion gap molar conc 5 mmol/L 5-15 [facility] Work Phone: AST enzyme act/vol 24 U/L 15-37 [facility] Work Phone: Bilirubin mass conc 0.40 mg/dL 0.20-1.00 [facility] Work Phone: Calcium mass conc 8.8 mg/dL 8.5-10.1 [facility] Work Phone: Chloride molar conc 104 mmol/L 98-107 [facility] Work Phone: CO2 ppres (BldV) 29.0 mmol/L 21.0-32.0 [facility] Work Phone: Creatinine mass conc 0.9 mg/dL 0.6-1.0 [facility] Work Phone: EST GFR - AA 81 mL/min >60 [facility] Work Phone: GFR/1.73 sq M predicted among non-blacks MDRD vol rate/area (S/P/Bld) 67 mL/min/{1.73_m2} >60 [facility] Work Phone: Globulin mass conc (S) 3.0 g/dL 2.7-4.2 [facility] Work Phone: Glucose mass conc 86 mg/dL 70-110 [facility] Work Phone: Potassium molar conc 4.4 mmol/L 3.5-5.1 [facility] Work Phone: Protein mass conc 6.6 g/dL 6.4-8.2 [facility] Work Phone: Sodium molar conc 138 mmol/L 136-145 [facility] Work Phone: Urea nitrogen mass conc 17 mg/dL 7-18 [facility] Work Phone: Urea nitrogen/Creatinine mass ratio 18.9 RATIO 10-20 [facility] Work Phone: Lab Report: LDHon 05-01-2015 LDH enzyme act/vol 87 U/L 87-241 [facility] Work Phone: Lab Report: Uric Acidon 04-08 Urate mass conc 4.0 mg/dL 2.6-6.0 [facility] Work Phone: External Other: Preferred Me thod of Contacton 12-06-2014 methcontact secmsg [facility] Work Phone: Lab Report: Liver Profileon 12-05-2014 Bilirubin.direct mass conc 0.13 mg/dL 0.00-0.30 [facility] Work Phone: Clinical Lists Update: 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 trouble shooter 09-24-2010 Cholesterol in HDL mass conc 46 mg/dL [facility] Work Phone: Cholesterol in LDL mass conc 67 mg/dL [facility] Work Phone: Cholesterol mass conc 132 mg/dL [facility] Work Phone: Lipoprotein.pre-bet a mass conc 19 mg/dL [facility] Work Phone: Triglyceride mass conc 93 mg/dL [facility] Work Phone: Vital Signs Date Time Vital Sign Value Performing Clinician Dawson fenton 07-18-2024 11:06-0400 Body temperature 96.91 [degF] Amor Escobar MD Work Phone: [facility] 07-18-2024 11:06-0400 Diastolic blood pressure 72 mm[Hg] Amor Escobar MD Work Phone: [facility] 07-18-2024 11:06-0400 Heart rate 89 /min Amor Escobar MD Work Phone: [facility] 07-18-2024 11:06-0400 Systolic blood pressure 111 mm[Hg] Amor Escobar MD Work Phone: [facility] 06-26-2024 16:41-0400 Body mass index (BMI) [Ratio] 33.88 kg/m2 Jose Stewart MD Work Phone: [facility] 06-26-2024 16:41-0400 Body weight 89.54 kg Jose Stewart MD Work Phone: [facility] 06-26-2024 16:41-0400 Diastolic blood pressure 76 mm[Hg] Jose Stewart MD Work Phone: [facility] 06-26-2024 16:41-0400 Heart rate 60 /min Jose Stewart MD Work Phone: [facility] 06-26-2024 16:41-0400 Respiratory rate 16 /min Jose Stewart MD Work Phone: [facility] 06-26-2024 16:41-0400 SaO2% (BldA) [Mass fraction] 96 % Jose Stewart MD Work Phone: [facility] 06-26-2024 16:41-0400 Systolic blood pressure 118 mm[Hg] Jose Stewart MD Work Phone: [facility] 04-23-2024 09:16-0400 Body temperature 98.2 [degF] Jose Stewart MD Work Phone: [facility] 04-23-2024 09:16-0400 Diastolic blood pressure 70 mm[Hg] Jose Stewart MD Work Phone: [facility] 04-23-2024 09:16-0400 Heart rate 68 /min Jose Stewart MD Work Phone: [facility] 04-23-2024 09:16-0400 SaO2% (BldA) [Mass fraction] 94 % Jose Stewart MD Work Phone: [facility] 04-23-2024 09:16-0400 Systolic blood pressure 116 mm[Hg] Jose Stewart MD Work Phone: [facility] 03-06-2024 10:46-0400 Body temperature 98.71 [degF] Jose Stewart MD Work Phone: [facility] 03-06-2024 10:46-0400 Diastolic blood pressure 64 mm[Hg] Jose Stewart MD Work Phone: [facility] 03-06-2024 10:46-0400 Heart rate 73 /min Jsoe Stewart MD Work Phone: [facility] 03-06-2024 10:46-0400 Respiratory rate 16 /min Jose Stewart MD Work Phone: [facility] 03-06-2024 10:46-0400 SaO2% (BldA) [Mass fraction] 95 % Jose Stewart MD Work Phone: [facility] 03-06-2024 10:46-0400 Systolic blood pressure 120 mm[Hg] Jose Stewart MD Work Phone: [facility] 03-08-2023 13:04-0400 Body height 161 cm Pulm Wstr Work Phone: [facility] 03-08-2023 13:04-0400 Body weight 75.75 kg Pulm Wstr Work Phone: [facility] 03-08-2023 13:04-0400 Heart rate 74 /min Pulm Wstr Work Phone: [facility] 03-08-2023 13:04-0400 Respiratory rate 14 /min Pulm Wstr Work Phone: [facility] 03-08-2023 13:04-0400 SaO2% (BldA) [Mass fraction] 95 % Pulm Wstr Work Phone: [facility] 10-13-2022 08:51-0500 Body temperature 96.91 [degF] Treatment Wstr Work Phone: [facility] 10-13-2022 08:51-0500 Diastolic blood pressure 57 mm[Hg] Treatment Wstr Work Phone: [facility] 10-13-2022 08:51-0500 Heart rate 70 /min Treatment Wstr Work Phone: [facility] 10-13-2022 08:51-0500 Systolic blood pressure 87 mm[Hg] Treatment Wstr Work Phone: [facility] 04-01-2022 12:05-0400 Diastolic blood pressure 50 mm[Hg] Nurse Main Work Phone: [facility] 04-01-2022 12:05-0400 Heart rate 98 /min Nurse Main Work Phone: [facility] 04-01-2022 12:05-0400 Respiratory rate 18 /min Nurse Main Work Phone: [facility] 04-01-2022 12:05-0400 Systolic blood pressure 108 mm[Hg] Nurse Main Work Phone: [facility] 04-01-2022 11:45-0400 SaO2% (BldA) [Mass fraction] 99 % Nurse Main Work Phone: [facility] 04-01-2022 11:14-0400 Body height 157.5 cm Amor Escobar MD Work Phone: [facility] 04-01-2022 11:14-0400 Body temperature 96.69 [degF] Amor Escobar MD Work Phone: [facility] 04-01-2022 11:14-0400 Body weight 76.2 kg Amor Escobar MD Work Phone: [facility] 04-01-2022 11:14-0400 Diastolic blood pressure 66 mm[Hg] Amor Escobar MD Work Phone: [facility] 04-01-2022 11:14-0400 Heart rate 66 /min Amor Escobar MD Work Phone: [facility] 04-01-2022 11:14-0400 Systolic blood pressure 119 mm[Hg] Amor Escobar MD Work Phone: [facility] 02-25-2022 09:49-0400 Body height 157.5 cm Zenia Josh PA-C Work Phone: [facility] 02-25-2022 09:49-0400 Diastolic blood pressure 70 mm[Hg] Zenia Josh PA-C Work Phone: [facility] 02-25-2022 09:49-0400 Heart rate 79 /min Zenia Josh PA-C Work Phone: [facility] 02-25-2022 09:49-0400 Systolic blood pressure 118 mm[Hg] Zenia Josh PA-C Work Phone: [facility] 02-03-2022 12:15-0400 Body height 157.5 cm Amor Escobar MD Work Phone: [facility] 02-03-2022 12:15-0400 Body temperature 97.3 [degF] Amor Escobar MD Work Phone: [facility] 02-03-2022 12:15-0400 Body weight 76.2 kg Amor Escobar MD Work Phone: [facility] 02-03-2022 12:15-0400 Diastolic blood pressure 67 mm[Hg] Amor Escobar MD Work Phone: [facility] 02-03-2022 12:15-0400 Heart rate 82 /min Amor Escobar MD Work Phone: [facility] 02-03-2022 12:15-0400 Systolic blood pressure 116 mm[Hg] Amor Escobar MD Work Phone: [facility] 05-30-2017 10:30-0400 BMI (Body Mass Index) 35.13 kg/m2 Lala Chauhan [facility] Work Phone: 05-30-2017 10:30-0400 BP Diastolic 60 mm[Hg] Lala Chauhan [facility] Work Phone: 05-30-2017 10:30-0400 BP Systolic 110 mm[Hg] Lala Chauhan [facility] Work Phone: 05-30-2017 10:30-0400 Height 163.83 cm Lala Chauhan [facility] Work Phone: 05-30-2017 10:30-0400 Pulse (Heart Rate) 64 /min Laalhannah Chauhan [facility] Work Phone: 05-30-2017 10:30-0400 Respiratory Rate 20 /min Lalahannah Chauhan [facility] Work Phone: 05-30-2017 10:30-0400 Weight 94.3 kg Lalahannah Chauhan [facility] Work Phone: 11-30-2016 11:17-0500 BMI (Body Mass Index) 35.49 kg/m2 Taylor Lowe RN [facility] Work Phone: 11-30-2016 11:17-0500 BP Diastolic 60 mm[Hg] Taylor Lowe RN [facility] Work Phone: 11-30-2016 11:17-0500 BP Systolic 100 mm[Hg] Taylor Lowe RN [facility] Work Phone: 11-30-2016 11:17-0500 BSA (Body Surface Area) 2.01 m2 Taylor Lowe RN [facility] Work Phone: 11-30-2016 11:17-0500 Pulse (Heart Rate) 76 /min [facility] Work Phone: 11-30-2016 11:17-0500 Respiratory Rate 20 /min Taylor [facility] Work Phone: 11-30-2016 11:17-0500 Weight 95.26 kg Taylor [facility] Work Phone: 10-27-2016 16:01-0500 Heart rate 74 /min [facility] Work Phone: 10-27-2016 15:00-0500 Height 163.83 cm Taylor Lowe RN [facility] Work Phone: 05-01-2015 10:10-0400 Body Temperature 97.6 [degF] Taylor [facility] Work Phone: Encounters Encounter Date Encounter Type Care Provider Facility Start: 09-06-2024 End: 09-06-2024 Telephone encounter Amor Escobar MD Work Phone: Rheumatology Comment on above: Patient Update; Verito ent Question Start: 07-18-2024 End: 07-18-2024 ambulatory AMOR ESCOBAR Facility:[facility] Start: 07-18-2024 End: 07-18-2024 Patient encounter procedure Amor Escobar MD Work Phone: Rheumatology Comment on above: 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) Start: 07-10-2024 End: 07-10-2024 Telephone encounter Jose Stewart MD Work Phone: [facility] Comment on above: Results Start: 06-30-2024 End: 06-30-2024 ambulatory JOSE STEWART Facility:[facility] Start: 06-26-2024 End: 06-26-2024 Patient encounter procedure Jose Stewart MD Work Phone: [facility] Comment on above: Weight gain (Primary Dx); Essential hypertension; Coronary artery disease involving [place] coronary artery of [place] heart without angina pectoris; S/P ablation of atrial fibrillation; Pulmonary fibrosis (HCC); 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); Hypokalemia; OAB (overactive bladder); Encounter for screening for diabetes mellitus Start: 06-26-2024 End: 06-26-2024 ambulatory JOSE STEWART Facility:[facility] Start: 04-23-2024 End: 04-23-2024 Patient encounter procedure Jose Stewart MD Work Phone: [facility] Comment on above: Cellulitis of right upper extremity (Primary Dx); Leukocytosis, unspecified type; Essential hypertension Start: 04-23-2024 End: 04-23-2024 ambulatory JOSE STEWART Facility:[facility] Start: 04-17-2024 Patient Outreach Evonne Castro QUARRY PL[employer] AND FEATHER DRILL[facility] Comment on above: Transition Of Care Start: 04-13-2024 End: 04-13-2024 ambulatory Treatment Rm 5 Yan [facility] Work Phone: Hematology/Oncology Comment on above: Tami's granulomat osis without renal involvement (HCC) (Primary Dx) Start: 04-12-2024 Orders Only Amor Escobar MD Work Phone: Rheumatology Comment on above: Tami's granulomat osis without renal involvement (HCC) (Primary Dx) Start: 03-28-2024 Telephone encounter Amor Escobar MD Work Phone: Rheumatology Comment on above: Received Outside Med ical Records Start: 03-19-2024 End: 03-19-2024 ambulatory AMOR ESCOBAR Facility:[facility] Start: 03-14-2024 ambulatory JOSE STEWART Facility:[id number] Start: 03-14-2024 End: 03-14-2024 Subsequent hospital visit by physician Jaclyn Andrea Rm 1 [facility] Comment on above: Transient global amn esia [G45.4] Start: 03-12-2024 End: 03-12-2024 ambulatory AMOR ESCOBAR Facility:[facility] Start: 03-06-2024 Documentation procedure Mammog lola Coordinator [facility] Department Start: 03-06-2024 Letter encounter Mammography Coordinator [facility] Department Start: 03-06-2024 End: 03-06-2024 Patient encounter procedure Jose Setwart MD Work Phone: Family Medicine [facility] Comment on above: Transient global amn esia (Primary Dx); Hypokalemia Start: 03-06-2024 End: 03-06-2024 ambulatory JOSE STEWART Facility:[facility] Start: 03-05-2024 End: 03-05-2024 ambulatory JOSE STEWART Facility:[facility] Start: 03-05-2024 End: 03-05-2024 Subsequent hospital visit by physician Screen Mammo [facility] Mammogram Comment on above: History of breast ca ncer [Z85.3] Start: 03-02-2024 Telephone encounter Amor Escobar MD Work Phone: Rheumatology Comment on above: Patient Question; Ap pointment Start: 02-24-2024 Telephone encounter Rito Stewart MD Work Phone: Family [facility] Comment on above: mammogram orders Start: 02-08-2024 End: 02-08-2024 ambulatory JOSE STEWART Facility:[facility] Start: 01-19-2024 Telephone encounter Rito Stewart MD Work Phone: [facility] Comment on above: medication issue Start: 01-10-2024 End: 01-10-2024 ambulatory JOSE STEWART Facility:[facility] Start: 12-01-2023 End: 12-01-2023 ambulatory JOSE STEWART Facility:[facility] Start: 12-01-2023 End: 12-01-2023 ambulatory JOSE STEWART Facility:[facility] Start: 11-22-2023 End: 11-22-2023 [facility] Start: 09-14-2023 End: 09-14-2023 [facility] Start: 07-04-2023 Telephone encounter Adriane jeronimo APRN.CNP Work Phone: [facility] Comment on above: Results Start: 06-28-2023 End: 06-28-2023 Subsequent hospital visit by physician Bone Density [facility] Work Phone: Radiology Comment on above: Screening for osteop orosis [Z13.820] Start: 06-03-2023 Telephone encounter Adriane jeronimo APRN.CNP Work Phone: [facility] Comment on above: Results Start: 03-31-2023 ambulatory Vicente Bergonian Facilit y:[id number] Start: 03-16-2023 ambulatory Vicente Maronian Facilit y:[id number] Start: 03-14-2023 End: 03-14-2023 Subsequent hospital visit by physician Ct [facility] (I-Stat) Work Phone: Cat Scan Comment on above: 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 Comment on above: Spirometry Start: 03-08-2023 End: 03-08-2023 Patient encounter procedure Pulm Lab [facility] Work Phone: [facility] Start: 03-07-[address] 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); Pseudophakia of both eyes; Essential hypertension; Hypercholesteremia Start: 10-20-2022 Telephone encounter Amor Escobar MD Work Phone: Rheumatology Comment on above: Patient Question Start: 10-13-2022 End: 10-13-2022 Orders Only Harmeet Sheth DO Work Phone: Hematology/Oncology Comment on above: 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) Start: 09-28-2022 Telephone encounter Amor Escobar MD Work Phone: Rheumatology Comment on above: Outside Labs Receive d Start: 09-23-2022 Telephone encounter Amor Escobar MD Work Phone: Rheumatology Comment on above: Outside Labs Receive d Start: 09-21-2022 Telephone encounter Amor Escobar MD Work Phone: Rheumatology Comment on above: Appointment Start: 04-28-2022 Orders Only Amor Escobar MD Work Phone: Rheumatology Comment on above: 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) Start: 04-22-2022 Telephone encounter Rachel Bales [facility] Comment on above: Appointment Start: 04-01-2022 End: 04-01-2022 Nursing evaluation of patient and report Nurse Wanda Reveles Work Phone: Rheumatology Comment on above: Encounter for prophy lactic measures, unspecified Start: 04-01-2022 End: 04-01-2022 Patient encounter procedure Amor Escobar MD Work Phone: Rheumatology Comment on above: 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 Start: 03-19-2022 Telephone encounter India Craig MD Work Phone: Hematology/Oncology Comment on above: Appointment Start: 02-25-2022 ambulatory Amor Escobar MD Work Phone: [facility] Start: 02-25-2022 End: 02-25-2022 Patient encounter procedure Zenia Moreno PA-C Work Phone: Gastroenterology [place] Comment on above: Recurrent Clostridio ides difficile infection (Primary Dx); Diverticulitis Canceled infusion ap pointments Start: 02-12-2022 ambulatory Amor Escobar MD Work Phone: Rheumatology Comment on above: Evusheld Start: 02-12-2022 E-mail encounter ector m caregiver Amor Escobar MD Work Phone: [facility] Start: 02-08-2022 End: 02-08-2022 Subsequent hospital visit by physician Radha Ware [facility] Comment on above: C-DIFF Start: 02-03-2022 End: 02-03-2022 Patient encounter procedure Amor Escobar MD Work Phone: Rheumatology Comment on above: 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); Clostridium difficile colitis Start: 01-29-2022 Telephone encounter Amor Escobar MD Work Phone: Rheumatology Comment on above: [facility] Start: 01-25-2022 Telephone encounter Amor Escobar MD Work Phone: Rheumatology Comment on above: Returning Patient's Call Start: 09-16-2017 End: 09-16-2017 Ambulatory [facility] Start: 08-25-2017 End: 08-25-2017 Ambulatory [facility] Start: 07-13-2017 End: 07-13-2017 [facility] Start: 06-03-2017 End: 06-03-2017 [facility] Procedures Date Procedure Procedure Detail Performing Clinician Start: 04-13-2024 Hepatitis c antibody Al brooke Escobar MD Work Phone: Start: 04-13-2024 Iaad ia hepatitis b surface antigen Amor Escobar MD Work Phone: Start: 04-13-2024 Assay of gammaglobul in iga igd igg igm each Amor Escobar MD Work Phone: Start: 03-14-2024 Duplex scan extracra nial art compl bi study Jose Stewart MD Work Phone: Start: 06-28-2023 Dxa bone density herbie dy 1/> sites axial skel Adriane Bankslogdandre WEBMASTER.DENTAL SERVICE CHIEF Work Phone: Start: 06-01-2023 Lipid 1996 panel - S luis or Plasma Ct (I-Stat) Work Phone: Start: 03-14-2023 Ct thorax w/o contra st material Amor Escobar MD Work Phone: Start: 03-08-2023 Spmtry w/vc expirato ry bettie w/wo mxml vol vntj Amor Escobar MD Work Phone: Start: 03-02-2023 Mammography Adriane Ramirez ogdandre WEBMASTER.DENTAL SERVICE CHIEF Work Phone: Start: 04-01-2022 Urnls dip stick/tabl et rgnt auto w/o microscopy Amor Escobar MD Work Phone: Start: 03-30-2022 Adult depression screening assessment Amor Escobar MD Work Phone: Start: 09-05-2021 Adult depression screening assessment Amor Escobar MD Work Phone: Start: 08-20-2021 History of appendectomy History of a ppendectomy Amor Escobar MD Work Phone: Start: 08-20-2021 History of cataract extraction History of cataract extraction Amor Escobar MD Work Phone: Start: 08-20-2021 History of tonsillectomy Histo ry of tonsillectomy Amor Escobar MD Work Phone: Start: 05-15-2019 Antibody screen Comment on above: Performed By: #### T &S #### [place] [id number] Start: 10-09-2018 Colonoscopy Amor Escobar MD Work Phone: Start: 05-30-2017 End: 05-30-2017 BEVEL MILL OPERATOR Taylor Meza PA-C Work Phone: Start: 05-30-2017 End: 05-30-2017 Follow Up Appt 6 months Taylor Meza PA-C Work Phone: Start: 11-30-2016 End: 11-30-2016 Follow Up Appt 6 months Alyssa Banks Start: 11-30-2016 End: 11-30-2016 MM Adarsh Man MD Start: 11-30-2016 End: 12-13-2016 Nuclear stress test -exercise Adarsh Man MD Start: 10-27-2016 End: 10-27-2016 BEVEL MILL OPERATOR Taylor Meza PA-C Work Phone: Start: 10-27-2016 End: 10-27-2016 Ecg routine ecg w/least 12 lds w/i&r Taylor Meza PA-C Work Phone: Start: 10-27-2016 End: 11-05-2016 Echocardiography Taylor Meza PA-C Work Phone: Start: 10-27-2016 End: 10-27-2016 Follow Up Appt 1 month Taylor Meza PA-C Work Phone: Start: 05-01-2015 End: 05-01-2015 *CMP Complete Metabolic Panel Kiel Hopkins Work Phone: Start: 05-01-2015 End: 05-01-2015 Lactate dehydrogenase [Enzymatic activity/volume] in Serum or Plasma Kiel Hopkins Work Phone: Start: 05-01-2015 End: 05-01-2015 Urate [Mass/volume] in Serum or Plasma Kiel Hopkins Work Phone: Start: 07-06-2011 End: 10-28-2016 Preoperative cardiovascular examination PRE-OPERATIVE CARDIOVASCULAR EXAMINATION Taylor Lowe RN Plan of Treatment Date Care Activity Detail Author Start: 06-01-2028 Lipid 1996 panel - Serum or Plasma Lipid Screening [facility] Start: 06-01-2028 Lipid panel Lipid Screening [facility] Start: 06-01-2028 LIPID SCREEN LIPID SCREEN [facility] Start: 06-30-2027 Diabetes Screening Diabetes Screening [facility] Start: 03-19-2027 Diabetes Screening Diabetes Screening [facility] Start: 03-12-2027 Diabetes Screening Diabetes Screening [facility] Start: 02-07-2027 Diabetes Screening Diabetes Screening [facility] Start: 12-01-2026 Diabetes Screening Diabetes Screening [facility] Start: 08-31-2026 Diabetes Screening Diabetes Screening [facility] Start: 06-01-2026 DIABETES SCREEN DIABETES SCREEN [facility] Start: 03-08-2026 DIABETES SCREEN DIABETES SCREEN [facility] Start: 07-21-2025 DIABETES SCREEN DIABETES SCREEN [facility] Start: 07-18-2025 BP Controlled (<130/80) BP Controlled (<130/80) [facility] Start: 06-30-2025 Hepatitis B surface antibody level LDL Cholesterol [facility] Start: 06-28-2025 Screening for osteoporosis Bone Density Screening [facility] Start: 06-26-2025 Annual PCP Team Chronic Disease Visit Annual PCP Team Chronic Disease Visit [facility] Start: 06-26-2025 BP Controlled (<130/80) BP Controlled (<130/80) [facility] in Start: 06-26-2025 Screening for malignant neoplasm of cervix Cervical Cancer Screening [facility] Comment on above: Postponed from 1959 (Declined at t his time) Start: 05-20-2025 DIABETES SCREEN DIABETES SCREEN [facility] Start: 04-23-2025 Annual PCP Team Chronic Disease Visit Annual PCP Team Chronic Disease Visit [facility] Start: 04-23-2025 BP Controlled (<130/80) BP Controlled (<130/80) [facility] Start: 04-01-2025 DIABETES SCREEN DIABETES SCREEN [facility] Start: 03-06-2025 Annual PCP Team Chronic Disease Visit Annual PCP Team Chronic Disease Visit [facility] Start: 03-06-2025 BP Controlled (<130/80) BP Controlled (<130/80) [facility] Start: 02-03-2025 DIABETES SCREEN DIABETES SCREEN [facility] Start: 12-26-2024 End: 12-26-2024 Patient encounter procedure 12/26/2024 3:00 PM EST Office Visit [facility] [address] [place], [place] [id number] PodlogarAdriane APRN.DENTAL SERVICE CHIEF [address] [place] [address] 6 month follow up [facility] Comment on above: 6 month follow up Start: 12-01-2024 Annual PCP Team Chronic Disease Visit Annual PCP Team Chronic Disease Visit [facility] Start: 12-01-2024 Covid-19 Vaccine ( season) Covid-19 Vaccine ( season) [facility] Comment on above: Postponed from 10/29/2023 (Declined at t his time) Start: 12-01-2024 Shingrix Vaccine (1 of 2) Shingrix Vaccine (1 of 2) [facility] Comment on above: Postponed from 1967 (Declined at t his time) Start: 12-01-2024 Urine microalbumin profile DTaP,Tdap,Td Vaccine (1 - Tdap) [facility] Comment on above: Postponed from 1967 (Declined at t his time) Start: 11-16-2024 DIABETES SCREEN DIABETES SCREEN [facility] Start: 09-28-2024 End: 09-28-2024 Infusion Center 09/28/2024 9:30 AM EST Infusion Center Hematology/Oncology [address] [place] [address] Q6MO RITUXAN/ AMOR FENTON FORTE ORDERING/MDCR* Hematology/Oncology Comment on above: Q6MO RITUXAN/ AMOR FENTON FORTE ORDE RING/MDCR* Start: 09-13-2024 End: 09-13-2024 Infusion Center Hematology/Oncology Comment on above: Q6MO RITUXAN/ AMOR FENTON FORTE ORDE RING/MDCR* Start: 08-31-2024 BP Controlled (<130/80) BP Controlled (<130/80) [facility] in Start: 08-15-2024 End: 08-15-2024 Infusion Center 08/15/2024 8:30 AM EDT [facility] Hematology/Oncology [address] [place] [address] Q6MO RITUXAN/ AMOR FENTON FORTE ORDERING/MDCR* Hematology/Oncology Comment on above: Q6MO RITUXAN/ AMOR FENTON FORTE ORDE RING/MDCR* Start: 07-18-2024 End: 07-18-2024 Patient encounter procedure 07/18/2024 11:00 AM EDT Office Visit Rheumatology [address] [address] Amor Stapleton MD [address] [place] [address] 6m follow up Rheumatology Comment on above: 6m follow up Start: 07-08-2024 Covid-19 Vaccine ( season) Covid-19 Vaccine ( season) [facility] Start: 07-08-2024 Covid-19 Vaccine ( season) Covid-19 Vaccine ( season) [facility] Start: 07-08-2024 Influenza vaccination Influenza Vaccine (#1) [facility] Start: 06-26-2024 End: 09-25-2024 Hemoglobin A1c in Blood HEMOGLOBIN A1C Lab Routine Weight gain Encounter for screening for diabetes mellitus Expected: 06/26/2024, Expires: 09/25/2024 [facility] Comment on above: Expected: 06/26/2024, Expires: Start: 06-26-2024 End: 09-25-2024 LIPID PANEL, NONFASTING LIPID PANEL, NONFASTING Lab Routine Coronary artery disease involving [place] coronary artery of [place] heart without angina pectoris Expected: 06/26/2024, Expires: 09/25/2024 [facility] Comment on above: Expected: 06/26/2024, Expires: 4 Start: 06-26-2024 End: 09-25-2024 Thyrotropin [Units/volume] in Serum or Plasma THYROID STIMULATING HORMONE Lab Routine Weight gain Expected: 06/26/2024, Expires: 09/25/2024 [facility] Work Phone: Comment on above: Expected: 06/26/2024, Expires: 4 Start: 06-01-2024 Hepatitis B surface antibody level LDL CHOLESTEROL [facility] Start: 05-31-2024 ANNUAL PCP TEAM CHRONIC DISEASE VISIT ANNUAL PCP TEAM CHRONIC DISEASE VISIT [facility] Start: 05-31-2024 BP CONTROLLED (<130/80) BP CONTROLLED (<130/80) [facility] in Start: 05-31-2024 End: 05-31-2024 Patient encounter procedure [facility] Comment on above: 6 month follow up/colonoscopy due LS 6 month follow up/co lonoscopy due LS- wants to discuss her weight gain Start: 04-13-2024 End: 04-13-2025 Chronic hepatitis differentiation between hepatitis B and C virus panel - Serum or Plasma [facility] Work Phone: Comment on above: Expected: 04/13/2024, Expires: 5 Start: 04-13-2024 End: 04-13-2024 Infusion Center 04/13/2024 9:00 AM EDT Infusion Center Hematology/Oncology [address] [place] [address] Q6MO RITUXAN/ AMOR FENTON FORTE ORDERING/MDCR* Hematology/Oncology Comment on above: Q6MO RITUXAN/ AMOR FENTON FORTE ORDE RING/MDCR* Start: 03-29-2024 End: 03-29-2024 Infusion Center 03/29/2024 9:30 AM EDT Infusion Center Hematology/Oncology [address] [place] [address] Q6MO RITUXAN/ AMOR FENOTN FORTE ORDERING/MDCR* Hematology/Oncology Comment on above: Q6MO RITUXAN/ AMOR FENTON FORTE ORDE RING/MDCR* Start: 03-19-2024 End: 03-19-2024 ambulatory [facility] Start: 03-14-2024 End: 03-14-2024 Patient encounter procedure 03/14/2024 1:30 PM EDT [facility]ment [facility] [address] [place] [address] Transient global amnesia [G45.4] [facility] Comment on above: Transient global amnesia [G45.4] Start: 03-06-2024 End: 06-05-2024 Comprehensive metabolic 2000 panel - Serum or Plasma COMPREHENSIVE METABOLIC PANEL Lab Routine Hypokalemia Expected: 03/06/2024, Expires: 06/05/2024 [facility] Comment on above: Expected: 03/06/2024, Expires: Start: 03-06-2024 End: 03-06-2024 Patient encounter procedure 03/06/2024 11:00 AM EDT Office Visit [facility] [address] [facility] [place] [id number] Jose Stewart MD [address] [place] [id number] TIA; [facility] discharged 01/29 [facility] Comment on above: TIA; [facility] discharged 01/29 Start: 03-05-2024 End: 03-05-2024 Patient encounter procedure 03/05/2024 11:30 AM EDT Appointment Mammogram [address] [place] [address] Request: [facility] SCREENING Mammogram Comment on above: Request: [facility] SCREENING Start: 03-02-2024 Mammography MAMMOGRAM [facility] Start: 02-29-2024 End: 02-29-2024 Infusion Center 02/29/2024 8:30 AM EDT [facility] Hematology/Oncology [address] [place] [address] Q6MO RITUXAN/ AMOR FENTON FORTE ORDERING/MDCR* Hematology/Oncology Comment on above: Q6MO RITUXAN/ AMOR ESCOBAR ORDE RING/MDCR* Start: 11-07-2023 Advance Directive Discussion Advance Directive Discussion [facility] Start: 11-07-2023 Behavioral Health Screening Behavioral Health Screening [facility] Start: 11-07-2023 Depression Assessment Depression Assessment [facility] Start: 10-09-2023 Colonoscopy COLONOSCOPY [facility] Start: 10-09-2023 COLORECTAL CANCER SCREENING COLORECTAL CANCER SCREENING [facility] Start: 10-09-2023 Screening for malignant neoplasm of colon [facility] Start: 07-08-2023 Covid-19 Vaccine () Covid-19 Vaccine () [facility] Start: 07-08-2023 Influenza vaccination [facility] Start: 04-01-2023 BP CONTROLLED (<130/80) BP CONTROLLED (<130/80) [facility] Start: 03-30-2023 Adult depression screening assessment DEPRESSION SCREENING [facility] Start: 02-25-2023 BP CONTROLLED (<130/80) BP CONTROLLED (<130/80) [facility] Start: 02-03-2023 BP CONTROLLED (<130/80) BP CONTROLLED (<130/80) [facility] Start: 11-07-2022 ADVANCE DIRECTIVE DISCUSSION ADVANCE DIRECTIVE DISCUSSION [facility] Start: 11-07-2022 DEPRESSION ASSESSMENT DEPRESSION ASSESSMENT [facility] Start: 10-28-2022 COVID-19 VACCINE (6 - Moderna risk series) COVID-19 VACCINE (6 - Moderna risk series) [facility] Start: 10-13-2022 End: 12-13-2022 Chronic hepatitis differentiation between hepatitis B and C virus panel - Serum or Plasma [facility] Work Phone: Comment on above: Expected: 10/13/2022, Expires: Start: 09-11-2022 BP CONTROLLED (<130/80) BP CONTROLLED (<130/80) [facility] Start: 09-05-2022 Adult depression screening assessment DEPRESSION SCREENING [facility] Start: 07-08-2022 Influenza vaccination INFLUENZA (#1) [facility] Start: 07-01-2022 COVID-19 VACCINE (5 - Booster for Moderna series) COVID-19 VACCINE (5 - Booster for Moderna series) [facility] Start: 04-26-2022 COVID-19 VACCINE (5 - Booster for Moderna series) COVID-19 VACCINE (5 - Booster for Moderna series) [facility] Start: 03-31-2022 End: 05-31-2022 SARS-CoV-2 (COVID-19) RNA [Presence] in Respiratory specimen by TOÑITO with probe detection SELF CHECK COVID Microbiology Routine Encounter for prophylactic measures, unspecified Expected: 03/31/2022, Expires: 05/31/2022 [facility] [employer] Work Phone: Comment on above: Expected: 03/31/2022, Expires: Start: 11-07-2021 ADVANCE DIRECTIVE DISCUSSION ADVANCE DIRECTIVE DISCUSSION [facility] Start: 11-07-2021 DEPRESSION ASSESSMENT DEPRESSION ASSESSMENT [facility] Start: 10-02-2021 COVID-19 VACCINE (4 - Booster for Moderna series) COVID-19 VACCINE (4 - Booster for Moderna series) [facility] Start: 12-01-2017 End: 12-01-2017 Appointment Appointment [facility] Work Phone: Start: 05-30-2017 End: 05-30-2017 Appointment Appointment [facility] Work Phone: Start: 05-30-2017 End: 05-30-2017 BEVEL MILL OPERATOR [facility] Work Phone: Start: 05-30-2017 End: 05-30-2017 Follow Up Appt 6 months Follow Up Appt 6 months [facility] Work Phone: Start: 11-30-2016 End: 11-30-2016 Follow Up Appt 6 months Follow Up Appt 6 months [facility] Work Phone: Start: 11-30-2016 End: 11-30-2016 MMM MMM [facility] Work Phone: Start: 11-30-2016 End: 11-30-2016 Nuclear stress test -exercise Nuclear stress test -exercise [facility] Work Phone: Start: 10-27-2016 End: 10-27-2016 BEVEL MILL OPERATOR [facility] Work Phone: Start: 10-27-2016 End: 10-27-2016 Ecg routine ecg w/least 12 lds w/i&r EKG (In office) [facility] Work Phone: Start: 10-27-2016 End: 10-27-2016 Echocardiography Echocardiogram (complete) [facility] Work Phone: Start: 10-27-2016 End: 10-27-2016 Follow Up Appt 1 month Follow Up Appt 1 month [facility] Work Phone: Start: 10-28-2015 End: 05-01-2015 *CBC with Differential *CBC with Differential [facility] Work Phone: Start: 10-28-2015 End: 05-01-2015 *CMP Complete Metabolic Panel *CMP Complete Metabolic Panel [facility] Work Phone: Start: 10-28-2015 End: 05-01-2015 LDH enzyme act/vol *LDH -LDH (Lactate Dehydrogenase) [facility] Work Phone: Start: 10-28-2015 End: 05-01-2015 Urate mass conc *Uric Acid Blood [facility] Work Phone: Start: 05-01-2015 End: 04-28-2015 *CBC with Differential *CBC with Differential [facility] Work Phone: Start: 05-01-2015 End: 05-01-2015 *CMP Complete Metabolic Panel *CMP Complete Metabolic Panel [facility] Work Phone: Start: 05-01-2015 End: 05-01-2015 LDH enzyme act/vol *LDH -LDH (Lactate Dehydrogenase) [facility] Work Phone: Start: 05-01-2015 End: 05-01-2015 Urate mass conc *Uric Acid Blood [facility] Work Phone: Start: 12-05-2014 End: 12-02-2014 *CBC with Differential *CBC with Differential [facility] Work Phone: Start: 12-05-2014 End: 12-02-2014 *Hepatic Function Panel *Hepatic Function Panel [facility] Work Phone: Start: 12-05-2014 End: 12-02-2014 Calcium mass conc *Calcium, Total [facility] Work Phone: Start: 2013 BONE DENSITY BONE DENSITY [facility] Start: 2008 RSV Vaccine (1 - 1-dose 60+ series) RSV Vaccine (1 - 1-dose 60+ series) [facility] Start: 1998 SHINGRIX VACCINE (1 of 2) SHINGRIX VACCINE (1 of 2) [facility] Start: 1993 COLOGUARD (FIT-DNA) COLOGUARD (FIT-DNA) [facility] Start: [address] COLONOGRAPHY [facility] Start: 1993 FECAL OCCULT BLOOD FECAL OCCULT BLOOD [facility] Start: 1993 LIPID SCREEN LIPID SCREEN [facility] Start: 1993 Screening for malignant neoplasm of colon [facility] Start: 1993 SIGMOIDOSCOPY SIGMOIDOSCOPY [facility] Start: 1988 Mammography MAMMOGRAM [facility] Start: 1967 SHINGRIX VACCINE (1 of 2) SHINGRIX VACCINE (1 of 2) [facility] Start: 1967 Urine microalbumin profile [facility] Start: 1966 ANNUAL PCP TEAM CHRONIC DISEASE VISIT ANNUAL PCP TEAM CHRONIC DISEASE VISIT [facility] Start: 1966 Anxiety Screening Anxiety Screening [facility] Start: 1966 BP CONTROLLED (<130/80) BP CONTROLLED (<130/80) [facility] Start: 1966 Depression Screening Depression Screening [facility] Start: 1966 Hepatitis B surface antibody level LDL CHOLESTEROL [facility] Start: 1959 Screening for malignant neoplasm of cervix Cervical Cancer Screening [facility] End: 01-20-2024 CBC W Auto Differential panel - Blood CBC + DIFF Lab Routine 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) Once per month for 12 Occurrences starting 01/19/2023 until 01/20/2024 [facility] Work Phone: Comment on above: Once per month for 12 Occurrences starti ng 01/19/2023 until 01/20/2024 End: 07-18-2025 CBC W Auto Differential panel - Blood COMPLETE BLOOD COUNT AND DIFFERENTIAL Lab Routine 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) Every 2 months for 6 Occurrences starting 07/18/2024 until 07/18/2025 [facility] Work Phone: Comment on above: Every 2 months for 6 Occurrences startin g 07/18/2024 until 07/18/2025 End: 01-20-2024 Comprehensive metabolic 2000 panel - Serum or Plasma COMP METABOLIC PANEL Lab Routine 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) Once per month for 12 Occurrences starting 01/19/2023 until 01/20/2024 [facility] Work Phone: Comment on above: Once per month for 12 Occurrences starti ng 01/19/2023 until 01/20/2024 End: 07-18-2025 Comprehensive metabolic 2000 panel - Serum or Plasma COMPREHENSIVE METABOLIC PANEL Lab Routine 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) Every 2 months for 6 Occurrences starting 07/18/2024 until 07/18/2025 [facility] Comment on above: Every 2 months for 6 Occurrences startin g 07/18/2024 until 07/18/2025 End: 01-20-2024 Erythrocyte sedimentation rate SED RATE WESTERGREN Lab Routine 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) Once per month for 12 Occurrences starting 01/19/2023 until 01/20/2024 [facility] Work Phone: Comment on above: Once per month for 12 Occurrences starti ng 01/19/2023 until 01/20/2024 End: 07-18-2025 Erythrocyte sedimentation rate SEDIMENTATION RATE, WESTERGREN Lab Routine 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) Every 2 months for 6 Occurrences starting 07/18/2024 until 07/18/2025 [facility] Comment on above: Every 2 months for 6 Occurrences startin g 07/18/2024 until 07/18/2025 Hepatitis B virus nelson rface Ab [Presence] in Serum HEPATITIS B SURFACE ANTIBODY Lab Routine 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) 04/13/2024 11:08 AM EDT [facility] End: 03-28-2025 MG Breast Screening JO ANN SCREENING Radiology Routine History of breast cancer Screening mammogram, encounter for 1 Occurrences starting 02/27/2024 until 03/28/2025 [facility] Work Phone: Comment on above: 1 Occurrences starting 02/27/2024 until 03/28/2025 MG Breast Screening JO ANN SCREENIN G Radiology Routine History of breast cancer Screening mammogram, encounter for 03/05/2024 12:39 PM EDT [facility] Work Phone: UA DIP B/O UA DIP B/O Lab R outine 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) Ordered: 02/03/2022 [facility] Work Phone: Comment on above: Ordered: 02/03/2022 End: 01-20-2024 URINALYSIS, DIPSTICK ONLY URINALYSIS, DIPSTICK ONLY Lab Routine 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) Once per month for 12 Occurrences starting 01/19/2023 until 01/20/2024 [facility] Work Phone: Comment on above: Once per month for 12 Occurrences starti ng 01/19/2023 until 01/20/2024 End: 07-18-2025 URINALYSIS, REFLEX MICROSCOPIC URINALYSIS, REFLEX MICROSCOPIC Lab Routine 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) Every 2 months for 6 Occurrences starting 07/18/2024 until 07/18/2025 [facility] Comment on above: Every 2 months for 6 Occurrences startin g 07/18/2024 until 07/18/2025 End: 03-06-2025 US Carotid arteries - bilateral US CAROTID ARTERIES [facility] Transient global amnesia 1 Occurrences starting 03/06/2024 until 03/06/2025 [facility] Work Phone: Comment on above: 1 Occurrences starting 03/06/2024 until 03/06/2025 [facility] Immunizations Immunization Date Immunization Notes Care Provider Carlee sykes 01-09-2024 respiratory syncytia l virus (RSV) vaccine, adjuvanted (AREXVY) Amor Escobar MD Work Phone: [facility] 09-03-2023 influenza (HD-IIV4) vaccine, age 65+ yr, high dose, quadrivalent, PF (FLUZONE HIGH-DOSE) Jose Stewart MD Work Phone: [facility] Work Phone: 09-03-2023 influenza virus vaccine, unspecified formulation Evonne Castro LPN [facility] 09-02-2022 COVID-19 vaccine, ag e 12+ yr, bivalent (MODERNA) Adriane Suarez [facility]BMASTER[facility] Work Phone: [facility] Work Phone: 08-19-2021 influenza, high-dose , quadrivalent vaccine (FLUZONE HIGH DOSE QUADRIVALENT) Amor Escobar MD Work Phone: [facility] 08-19-2021 influenza virus vaccine, unspecified formulation Ct (I-Stat) Work Phone: [facility] 07-02-2021 COVID-19 vaccine, fu ll dose (MODERNA) Radha Ware MD Work Phone: [facility] 01-29-2021 COVID-19 vaccine, fu ll dose (MODERNA) Amor Escobar MD Work Phone: [facility] 01-01-2021 COVID-19 vaccine, fu ll dose (MODERNA) Amor Escobar MD Work Phone: [facility] 08-29-2020 influenza, high-dose , quadrivalent vaccine (FLUZONE HIGH DOSE QUADRIVALENT) Amor Escobar MD Work Phone: [facility] 08-28-2019 influenza, high dose seasonal, preservative-free Amor Escobar MD Work Phone: [facility] 12-14-2018 pneumococcal polysaccharide vaccine, 23 valent Amor Escobar MD Work Phone: [facility] Work Phone: 08-03-2018 influenza, high dose seasonal, preservative-free Amor Escobar MD Work Phone: [facility] Work Phone: 12-08-2017 pneumococcal conjuga te vaccine, 13 valent Amor Escobar MD Work Phone: [facility] Work Phone: 10-13-2017 influenza, high dose seasonal, preservative-free Amor Escobar MD Work Phone: [facility] Work Phone: 06-02-2016 varicella zoster imm une globulin Amor Escobar MD Work Phone: [facility] Work Phone: 06-02-2016 varicella zoster imm une globulin; Translations: [ZOSTER VACCINE LIVE] Taylor Lowe RN [facility] Work Phone: Payers Date Payer Category Payer Medicare MEDICARE MEDICAR E A AND B [id number] 2013-Present [phone] [address] [place] [id number] Medicare [id number] 2013 Medicare MEDICARE MEDICAR E A AND B [id number] 2013-Present [phone] [place] [address] Medicare [id number] 2013 Medicare [id number] 1950 Unknown [id number] 1950 Unknown [id number] 1950 Unknown [id number] Medicare [id number] Social History Date Type Detail Facility Start: 08-28-2014 End: 03-07-2023 Tobacco smoking status NHIS Never smoked tobacco [facility] Start: 09-11-2021 End: 07-18-2024 Alcohol intake Current non-drinker of alcohol (finding) [facility] Start: 1950 Sex Assigned At Female [facility] Start: 12-12-2021 End: 03-31-2022 Exposure to SARS-CoV-2 (event) Unable to assess [facility] Start: 01-24-2022 End: 05-20-2022 Exposure to SARS-CoV-2 (event) Not sure [facility] Start: 08-28-2014 End: 03-07-2023 Tobacco use and exposure Smokeless tobacco non-user [facility] Work Phone: Start: 03-10-2023 End: 05-31-2023 History of Social function [facility] Start: 03-10-2023 End: 05-31-2023 Tobacco use panel [facility] Adult Depression Screening Assessment 2 [facility] Start: 01-25-2021 Gender identity Identifies as female gender (finding) [facility] Start: 01-25-2021 Sexual orientation Heterosexual (magaly damian) [facility] Has the [employer], or [employer] threatened to shut off services in your home in past 12Mo No [facility] Are you now , , , , never or living with a partner? [facility] How often to you hav e a drink containing alcohol? Never [facility] Do you feel stress - tense, restless, nervous, or anxious, or unable to sleep at night because your mind is troubled all the time - these days [OSQ] Only a little [facility] (I/We) worried whecate er (my/our) food would run out before (I/we) got money to buy more. Never true [facility] Goals Date Patient Goal Desired Activity /State Personal health goal Clinical Notes 03-14-2019 to 09-06-2024 Telephone Encounter - Maria Eugenia Bowman Ma - 09/06/2024 9:02 AM EDTTelephone Encounter - Maria Eugenia Bowman Ma - 09/06/2024 9:02 AM EDTAmor Stapleton MD - 07/18/2024 11:39 AM EDT Note Date & Type Note Facility 09-06-2024 Miscellaneous Notes Patients called. She has been admitted to the hospital (in [place]) for 10 days so far for diarrhea. They will be doing a colonoscopy today (09/06/24). She is scheduled for the Rituximab infusion for 09/28/24. They are wondering if the patient should still receive this since she is hospitalized right now. Please call back [phone] (cell). documented in this encounter [facility] 09-06-2024 Telephone encounter Note Patients called. She has been admitted to the hospital (in [place]) for 10 days so far for diarrhea. They will be doing a colonoscopy today (09/06/24). She is scheduled for the Rituximab infusion for 09/28/24. They are wondering if the patient should still receive this since she is hospitalized right now. Please call back [phone] (cell). [facility] 07-18-2024 Note HNO ID: [id number] Author: AMOR STAPLETON MD Service: ? 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 Status Post Catheter Ablation of Atrial Fibrillation Comment: balloon catheter cryoablation atrial fibrillation PVAI 05/15/2019 Obesity, Class I, Bmi 30-34.9 - 03/19/2019 At Risk for Stroke Comment: [id number] = 3 (HTN, age, female gender) Anticoagulant Long-Term Use Comment: apixaban (Eliquis); indication: stroke prevention AF Palpitations - 03/14/2019 Nonrheumatic Mitral (Valve) Insufficiency - 03/14/2019 Nonrheumatic Tricuspid (Valve) Insufficiency - 03/14/2019 History of Colonic Polyps - 07/24/2018 Comment: Added automatically from request for surgery [id number] Family History of Colon Cancer in Father - 07/24/2018 Comment: Added automatically from request for surgery [id number] Punctate Keratitis, Bilateral - 08/31/2017 Personal History [...] Karen Falk states that she has been getting some nosebleeds again, occasionally, in the last 3 weeks. No nasal, ear or sinus pain Cough: daily, dry, a little worse SOB: with minimal activity, even just standing up from a sitting position. Unable to walk because of dyspnea. SMALL/MEDIUM VESSEL VASCULITIS ROS: GENERAL: fatigue FEVER: none WEIGHT CHANGE: has gained ENT: negative for, sinus tenderness, nasal crusting, ear pain, sore throat, difficulty swallowing, mouth lesions, loud noisy breathing or stridor + hoarseness EYES: negative for , pain, redness, visual blurring, diplopia CARDIOVASCULAR: negative for, chest pain GASTROINTESTINAL: + chronic liquid diarrhea taking pancreatic enzymes URINARY: negative for, dysuria, hematuria MUSCULOSKELETAL: negative for, joint swelling SKIN: negative for, rash REVIEW OF FAMILY AND/OR SOCIAL HISTORY: The family and/or social were reviewed at todays visit and no changes were noted. Date of last DEXA: 06/30/2023 ([facility]) Current Outpatient Medications Medication Sig vibegron (GEMTESA) 75 mg tablet Take 75 mg by mouth once daily. cycloSPORINE (RESTASIS) 0.05 % ophthalmic emulsion Use 1 Drop in both eyes two times a day. potassium chloride (K-TAB) 10 mEq tablet Take 1 tablet by mouth two times a day. Patient reports 10 MEQ BID as of 06/26/24 lipase/protease/amylase (ZENPEP ORAL) Take 2 capsules by mouth with meals. OXYGEN, HOME THERAPY, Inhale 2 L/min as instructed as directed. budesonide, enteric coated (ENTOCORT EC) 3 mg 24 hr capsule TAKE 3 CAPSULES BY MOUTH IN THE MORNING FOR MICROSCOPIC COLITIS propylene glycoL (SYSTANE COMPLETE) 0.6 % drop Use 1 Drop in both eyes three times daily. Artificial Tear, Hypromellose, (GENTEAL TEARS SEVERE GEL) 0.3 % gel Use 1 Drop in both eyes daily at bedtime. aspirin, enteric coated (ASPIRIN, ENTERIC COATED) 81 mg EC tablet Take 81 mg by mouth once daily. Cholecalciferol, Vitamin D3, 50 mcg (2,000 unit) cap Take 2,000 Units by mouth two times a day. metoprolol tartrate, short acting, (LOPRESSOR) 25 mg tablet Take 12.5 mg by mouth twice daily. atorvastatin calcium(LIPITOR 10 MG TAB) Take one(1) tablet daily. acetaminophen(TYLENOL 325 MG TAB) Take two(2) tablets every four(4) to six(6) hours as needed for pain. No current facility-administered medications for this visit. PHYSICAL EXAMINATION Blood pressure 111/72, pulse 89, temperature 36.1 ?C (96.9 ?F), temperature source Temporal. GENERAL APPEARANCE: fatigued SKIN: normal without rashes or lesions EYES: conjunctiva clear, PERRL, EOM normal EARS: External ears normal, TM's normal NOSE/SINUSES: normal OROPHARYNX: no oral lesions present, no oral ulcers. LUNGS: clear HEART: RRR, no gallops, rubs or murmurs MUSCULOSKELETAL: no joint tenderness or swelling NEURO: motor 03/11 Lab results: WBC Date Va (more content not included)... 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 Status Post Catheter Ablation of Atrial Fibrillation Comment: balloon catheter cryoablation atrial fibrillation PVAI 05/15/2019 Obesity, Class I, Bmi 30-34.9 - 03/19/2019 At Risk for Stroke Comment: [id number] = 3 (HTN, age, female gender) Anticoagulant Long-Term Use Comment: apixaban (Eliquis); indication: stroke prevention AF Palpitations - 03/14/2019 Nonrheumatic Mitral (Valve) Insufficiency - 03/14/2019 Nonrheumatic Tricuspid (Valve) Insufficiency - 03/14/2019 History of Colonic Polyps - 07/24/2018 Comment: Added automatically from request for surgery [id number] Family History of Colon Cancer in Father - 07/24/2018 Comment: Added automatically from request for surgery [id number] Punctate Keratitis, Bilateral - 08/31/2017 Personal History [...] Karen Falk states that she has been getting some nosebleeds again, occasionally, in the last 3 weeks. No nasal, ear or sinus pain Cough: daily, dry, a little worse SOB: with minimal activity, even just standing up from a sitting position. Unable to walk because of dyspnea. SMALL/MEDIUM VESSEL VASCULITIS ROS: GENERAL: fatigue FEVER: none WEIGHT CHANGE: has gained ENT: negative for, sinus tenderness, nasal crusting, ear pain, sore throat, difficulty swallowing, mouth lesions, loud noisy breathing or stridor + hoarseness EYES: negative for , pain, redness, visual blurring, diplopia CARDIOVASCULAR: negative for, chest pain GASTROINTESTINAL: + chronic liquid diarrhea taking pancreatic enzymes URINARY: negative for, dysuria, hematuria MUSCULOSKELETAL: negative for, joint swelling SKIN: negative for, rash REVIEW OF FAMILY AND/OR SOCIAL HISTORY: The family and/or social were reviewed at todays visit and no changes were noted. Date of last DEXA: 06/30/2023 ([facility]) Current Outpatient Medications Medication Sig vibegron (GEMTESA) 75 mg tablet Take 75 mg by mouth once daily. cycloSPORINE (RESTASIS) 0.05 % ophthalmic emulsion Use 1 Drop in both eyes two times a day. potassium chloride (K-TAB) 10 mEq tablet Take 1 tablet by mouth two times a day. Patient reports 10 MEQ BID as of 06/26/24 lipase/protease/amylase (ZENPEP ORAL) Take 2 capsules by mouth with meals. OXYGEN, HOME THERAPY, Inhale 2 L/min as instructed as directed. budesonide, enteric coated (ENTOCORT EC) 3 mg 24 hr capsule TAKE 3 CAPSULES BY MOUTH IN THE MORNING FOR MICROSCOPIC COLITIS propylene glycoL (SYSTANE COMPLETE) 0.6 % drop Use 1 Drop in both eyes three times daily. Artificial Tear, Hypromellose, (GENTEAL TEARS SEVERE GEL) 0.3 % gel Use 1 Drop in both eyes daily at bedtime. aspirin, enteric coated (ASPIRIN, ENTERIC COATED) 81 mg EC tablet Take 81 mg by mouth once daily. Cholecalciferol, Vitamin D3, 50 mcg (2,000 unit) cap Take 2,000 Units by mouth two times a day. metoprolol tartrate, short acting, (LOPRESSOR) 25 mg tablet Take 12.5 mg by mouth twice daily. atorvastatin calcium(LIPITOR 10 MG TAB) Take one(1) tablet daily. acetaminophen(TYLENOL 325 MG TAB) Take two(2) tablets every four(4) to six(6) hours as needed for pain. No current facility-administered medications for this visit. PHYSICAL EXAMINATION Blood pressure 111/72, pulse 89, temperature 36.1 C (96.9 F), temperature source Temporal. GENERAL APPEARANCE: fatigued SKIN: normal without rashes or lesions EYES: conjunctiva clear, PERRL, EOM normal EARS: External ears normal, TM's normal NOSE/SINUSES: normal OROPHARYNX: no oral lesions present, no oral ulcers. LUNGS: clear HEART: RRR, no gallops, rubs or murmurs MUSCULOSKELETAL: no joint tenderness or swelling NEURO: motor 5/5 Lab results: WBC Date Value Ref Range Status 06/30/2024 10.88 3.70 - 11.00 k/uL Final Hemoglobin Date Value Ref Range Status 06/30/2024 13.5 11.5 - 15.5 g/dL Final Hematocrit Date Value Ref Range Status 06/30/2024 43.9 36.0 - 46.0 % Final Platelet Count Date Value Ref Range Status 06/30/2024 281 150 - 400 k/uL Final Abs Lymph Date Value Ref Range Status 06/30/2024 2.52 1.00 - 4.00 k/uL Final Creatinine Date Value Ref Range Status 06/30/2024 0.98 (H) 0.58 - 0.96 mg/dL Final Glucose Date Value Ref Range Status 06/30/2024 90 74 - 99 mg/dL Final Comment: The [place] [employer] (ADA) provides guidance for cutoff [...] Standards of Medical Care in Diabetes 2016, [place] [employer]. Diabetes Care. 2016.39(Suppl 1). AST Date Value Ref Range Status 06/30/2024 20 13 - 35 U/L Final ALT Date Value Ref Range Status 06/30/2024 18 7 - 38 U/L Final Sed Rate, W[place]gren Date Value Ref Range Status 06/30/2024 23 (H) 0 - 20 mm/hr Final CRP Date Value Ref Range Status 03/08/2023 0.7 <0.9 mg/dL Final Alkaline Phosphatase Date Value Ref Range Status 06/30/2024 74 34 - 123 U/L Final Urine: Specific Victor, Ur Date Value Ref Range Status 03/21/2024 1.014 1.005 - 1.030 Final Glucose, Urine Date Value Ref Range Status 03/21/2024 Negative Negative Final Bilirubin, Urine Date Value Ref Range Status 03/21/2024 Negative Negative Final Ketones, Urine Date Value Ref Range Status 03/21/2024 Negative Negative Final Hemoglobin/Blood,Ur Date Value Ref Range Status 03/21/2024 Negative Negative Final Protein, Urine Date Value Ref Range Status 03/21/2024 Trace (A) Negative Final WBC, Urine Date Value Ref Range Status 03/21/2024 >20 /HPF (A) 0-5 /HPF Final chest CT from Jun 2024 - stable ASSESSMENT: 1. 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 urine sed - normal Lung - has appt with pulmonology today - will she be considered for anti-fibrotic therapy again? 2. Pancreatic insufficiency? She may need imaging of the pancreas - discussed today Assessment and plan were discussed with the patient. PLAN: - Maintenance therapy with Rituximab every 6 months - to be continued pending additional treatment decision by pulmonary Orders: Labs Consults: f/u with pulm Monitoring: can change labs to every 2 months Patient instructed to notify provider of any changes in medical condition. Follow-up: as needed I spent a total of 40 minutes on the date of the service which included preparing to see the patient, [id number] patient care, completing clinical documentation, obtaining and/or reviewing separately obtained history, performing a medically appropriate examination, counseling and educating the patient/family/caregiver, ordering medications, tests, or procedures, and independently interpreting results (not separately reported). Amor Guzman MD, MPH documented in this encounter [facility] 07-10-2024 Telephone encounter Note Spoke with pt and information listed below given. Pt verbalizes understanding. Filiberto Suarez LPN [facility] 07-10-2024 Telephone encounter Note ----- Message from Jose Stewart MD sent at 07/10/2024 8:12 AM EDT ----- Normal cholesterol and thyroid levels. A1c in prediabetic range at 5.8. no change in regimen. Work on low carb diet and exercise. [facility] 07-10-2024 Miscellaneous Notes Spoke with pt and information listed below given. Pt verbalizes understanding. Filiberto Suarez LPN ----- Message from Jose Stewart MD sent at 07/10/2024 8:12 AM EDT ----- Normal cholesterol and thyroid levels. A1c in prediabetic range at 5.8. no change in regimen. Work on low carb diet and exercise. documented in this encounter [facility] 06-26-2024 Note HNO ID: [id number] Author: JOSE STEWART MD Service: ? Author Type: Physician Type: Progress Notes Filed: 06/29/2024 20:16 Note Text: Chief Complaint Patient presents with: Follow Up: 6 month HPI Karen Falk is a 74 year old female who presents here today for Above Complaints. Accompanied today by her . Patient states that she is eating only 1,000 calories per day and is still gaining weight. Unable to exercise due to her chronic medical conditions. Interested in medications for weight loss. Not interested in referral to dietitian. BP in good range today on metoprolol. Does not check BP at home. Denies HTN symptoms of headache, vision changes, chest pain, worsening SOB, leg swelling. Has history of pulmonary fibrosis managed by Dr. Rae at [facility] on a yearly basis. Started treatment with Ofev for worsening disease, but patient could not tolerate this. Stopped using oxygen at night, but has not notified their office. Not on any inhalers at this time. Admits to SOB with exertion, cough, and wheezing. Has f/u with Dr. Rae in 2 weeks. CAD/History of a fib s/p ablation: Managed by [facility] cardiology. Has follow up appointment with their office every 6 months with next OV in August. No changes to regimen at last OV. Asymptomatic. Denies palpitations or tachycardia since her ablation. 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 Checking labs every 2 months which were reviewed today. Patient states that they never did stop her Rituxan and has f/u with Dr. Eliceo Escobar next month. Overactive bladder symptoms improved on Gemtesa. Denies incontinence, dysuria, hematuria, frequency, urgency. Past medical history, appointments, medications, allergies reviewed. Previous Medical History PAST MEDICAL HISTORY No date: Acute gastritis without mention of hemorrhage No date: Anticoagulant long-term use Comment: apixaban (Eliquis); indication: stroke prevention AF No date: Arrhythmia No date: At risk for stroke Comment: [id number] = 4 (HTN, age, CAD, female gender) No date: Benign neoplasm of colon 2008: Breast cancer, stage 4 (HCC) Comment: right breast - chemo and radiation No date: Coronary artery disease involving [place] coronary artery of [place] heart without angina pectoris No date: Diaphragmatic hernia without mention of obstruction or gangrene No date: Diverticulosis of colon (without mention of hemorrhage) No date: Esophageal reflux No date: Essential hypertension No date: Family history of malignant neoplasm of gastrointestinal tract No date: Fatigue No date: Granulomatosis with polyangiitis (HCC) 07/22/2021: 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) No date: HLD (hyperlipidemia) No date: Hypercholesteremia No date: Lipodermatosclerosis of both lower extremities No date: Nonrheumatic mitral (valve) insufficiency No date: Nonrheumatic tricuspid (valve) insufficiency No date: Obesity No date: OXANA (obstructive sleep apnea) No date: Osteoporosis, unspecified No date: Other and unspecified hyperlipidemia No date: Palpitations No date: Persistent atrial fibrillation (HCC) Comment: initially paroxysmal but became persistent over time; s/p AF catheter ablation 05/15/2019. Not needing anticoagulation. No date: Personal history of colonic polyps No date: Pulmonary fibrosis (HCC) Comment: Dr. 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 Jackson No date: APPENDECTOMY 05/15/2008: CARDIAC CATH; Left Comment: preserved LV systolic fxn; no significant CAD 12/13/2016: CARDIAC STRESS TEST Comment: reportedly no ischemia; AF noted; preserved LVEF 12/29/2004: COLONOSCOPY FLX DX W/COLLJ SPEC WHEN PFRMD Comment: Colonoscopy 12/02/2009: COLONOSCOPY FLX DX W/COLLJ SPEC WHEN PFRMD 09/11/2015: COLONOSCOPY FLX DX W/COLLJ SPEC WHEN PFRMD Comment: Colonoscopy 10/09/2018: COLONOSCOPY FLX DX W/COLLJ SPEC WHEN PFRMD Comment: repeat 5 years 03/23/2018: ECHOCARDIOGRAM Comment: LVEF 60%; stage I diastolic dysfxn; mild MR, mild TR 03/23/2019: ECHOCARDIOGRAM Comment: normal LV systolic fxn; LVEF 60%; normal LA size; mild MR, TR 08/08/2019: ECHOCARDIOGRAM Comment: normal LV systolic fxn; LVEF 55%; normal LA size; 1-2+ MR; 1+ TR 08/30/2006: EGD TRANSORAL BIOPSY SINGLE/MULTIPLE 01/17/2019: HOLTER MONITOR Comment: nearly 100% AF; average HR 81 bpm 08/08/2019: HOLTER MONITOR 24 HRS Comment: sinus rhythm; PVCs; rare PACs; no AF 11/25/2020: INSERT INTRACORONARY STENT Comment: PCI stent to mid LAD; PTCA to (more content not included)... [facility] 06-26-2024 History of Present illness Narrative Chief Complaint Patient presents with: Follow Up: 6 month HPI Karen Falk is a 74 year old female who presents here today for Above Complaints. Accompanied today by her . Patient states that she is eating only 1,000 calories per day and is still gaining weight. Unable to exercise due to her chronic medical conditions. Interested in medications for weight loss. Not interested in referral to dietitian. BP in good range today on metoprolol. Does not check BP at home. Denies HTN symptoms of headache, vision changes, chest pain, worsening SOB, leg swelling. Has history of pulmonary fibrosis managed by Dr. Rae at [facility] on a yearly basis. Started treatment with Ofev for worsening disease, but patient could not tolerate this. Stopped using oxygen at night, but has not notified their office. Not on any inhalers at this time. Admits to SOB with exertion, cough, and wheezing. Has f/u with Dr. Rae in 2 weeks. CAD/History of a fib s/p ablation: Managed by [facility] cardiology. Has follow up appointment with their office every 6 months with next OV in August. No changes to regimen at last OV. Asymptomatic. Denies palpitations or tachycardia since her ablation. 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 Checking labs every 2 months which were reviewed today. Patient states that they never did stop her Rituxan and has f/u with Dr. Eliceo Escobar next month. Overactive bladder symptoms improved on Gemtesa. Denies incontinence, dysuria, hematuria, frequency, urgency. Past medical history, appointments, medications, allergies reviewed. Previous Medical History PAST MEDICAL HISTORY No date: Acute gastritis without mention of hemorrhage No date: Anticoagulant long-term use Comment: apixaban (Eliquis); indication: stroke prevention AF No date: Arrhythmia No date: At risk for stroke Comment: [id number] = 4 (HTN, age, CAD, female gender) No date: Benign neoplasm of colon 2008: Breast cancer, stage 4 (HCC) Comment: right breast - chemo and radiation No date: Coronary artery disease involving [place] coronary artery of [place] heart without angina pectoris No date: Diaphragmatic hernia without mention of obstruction or gangrene No date: Diverticulosis of colon (without mention of hemorrhage) No date: Esophageal reflux No date: Essential hypertension No date: Family history of malignant neoplasm of gastrointestinal tract No date: Fatigue No date: Granulomatosis with polyangiitis (HCC) 07/22/2021: 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) No date: HLD (hyperlipidemia) No date: Hypercholesteremia No date: Lipodermatosclerosis of both lower extremities No date: Nonrheumatic mitral (valve) insufficiency No date: Nonrheumatic tricuspid (valve) insufficiency No date: Obesity No date: OXANA (obstructive sleep apnea) No date: Osteoporosis, unspecified No date: Other and unspecified hyperlipidemia No date: Palpitations No date: Persistent atrial fibrillation (HCC) Comment: initially paroxysmal but became persistent over time; s/p AF catheter ablation 05/15/2019. Not needing anticoagulation. No date: Personal history of colonic polyps No date: Pulmonary fibrosis (HCC) Comment: Dr. 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 Jackson No date: APPENDECTOMY 05/15/2008: CARDIAC CATH; Left Comment: preserved LV systolic fxn; no significant CAD 12/13/2016: CARDIAC STRESS TEST Comment: reportedly no ischemia; AF noted; preserved LVEF 12/29/2004: COLONOSCOPY FLX DX W/COLLJ SPEC WHEN PFRMD Comment: Colonoscopy 12/02/2009: COLONOSCOPY FLX DX W/COLLJ SPEC WHEN PFRMD 09/11/2015: COLONOSCOPY FLX DX W/COLLJ SPEC WHEN PFRMD Comment: Colonoscopy 10/09/2018: COLONOSCOPY FLX DX W/COLLJ SPEC WHEN PFRMD Comment: repeat 5 years 03/23/2018: ECHOCARDIOGRAM Comment: LVEF 60%; stage I diastolic dysfxn; mild MR, mild TR 03/23/2019: ECHOCARDIOGRAM Comment: normal LV systolic fxn; LVEF 60%; normal LA size; mild MR, TR 08/08/2019: ECHOCARDIOGRAM Comment: normal LV systolic fxn; LVEF 55%; normal LA size; 1-2+ MR; 1+ TR 08/30/2006: EGD TRANSORAL BIOPSY SINGLE/MULTIPLE 01/17/2019: HOLTER MONITOR Comment: nearly 100% AF; average HR 81 bpm 08/08/2019: HOLTER MONITOR 24 HRS Comment: sinus rhythm; PVCs; rare PACs; no AF 11/25/2020: INSERT INTRACORONARY STENT Comment: PCI stent to mid LAD; PTCA to D1; [facility] No date: LAP ADJUSTABLE GASTRIC BAND 2007: lapband Comment: released when diagnosed with breast cancer No date: LIG/TRNSXJ FLP TUBE ABDL/VAG APPR UNI/BI Comment: Tubal ligation 02/2008: LUMPECTOMY/RADIOTHERAPY DIAG MAMM/A10 Comment: right breast lumpectomy No date: TONSILLECTOMY HX No date: TONSILLECTOMY PRIMARY/SECONDARY <AGE 12 Comment: Tonsillectomy 07/23/2011: XCAPSL CTRC RMVL INSJ IO LENS PROSTH W/O ECP Comment: Cataract Extraction with PC IOL (Restor) left eye 08/04/2011: XCAPSL CTRC RMVL INSJ IO LENS PROSTH W/O ECP Comment: Cataract Extraction with PC IOL (Restor) right eye Family History FAMILY HISTORY Problem Relation Age of Onset Breast Cancer Mother 68 Treated with lumpectomy only other (cerebral hemmorrage) Mother Colon Cancer Father 68 of metastatic colon cancer Heart disease Father No Known Problems Sister No Known Problems Sister Emphysema Sister No Known Problems Brother No Known Problems Brother Heart Attack Brother 62 suddenly (arrest) Diabetes Brother other (cerebral hemmorhage) Maternal Grandmother other (sepsis) Maternal Grandfather Breast Cancer Paternal Grandmother No Known Problems Paternal Grandfather Patient Allergies ALLERGIES No Known Allergies Current Medications Current Outpatient Medications on File Prior to Visit Medication Sig vibegron (GEMTESA) 75 mg tablet Take 75 mg by mouth once daily. cycloSPORINE (RESTASIS) 0.05 % ophthalmic emulsion Use 1 Drop in both eyes two times a day. lipase/protease/amylase (ZENPEP ORAL) Take 2 capsules by mouth with meals. potassium chloride (K-TAB) 10 mEq tablet Take 2 tablets by mouth two times a day. (Patient taking differently: Take 10 mEq by mouth two times a day. Patient reports 10 MEQ BID as of 06/26/24) budesonide, enteric coated (ENTOCORT EC) 3 mg 24 hr capsule TAKE 3 CAPSULES BY MOUTH IN THE MORNING FOR MICROSCOPIC COLITIS propylene glycoL (SYSTANE COMPLETE) 0.6 % drop Use 1 Drop in both eyes three times daily. aspirin, enteric coated (ASPIRIN, ENTERIC COATED) 81 mg EC tablet Take 81 mg by mouth once daily. Cholecalciferol, Vitamin D3, 50 mcg (2,000 unit) cap Take 2,000 Units by mouth two times a day. metoprolol tartrate, short acting, (LOPRESSOR) 25 mg tablet Take 12.5 mg by mouth twice daily. atorvastatin calcium(LIPITOR 10 MG TAB) Take one(1) tablet daily. OXYGEN, HOME THERAPY, Inhale 2 L/min as instructed as directed. Artificial Tear, Hypromellose, (GENTEAL TEARS SEVERE GEL) 0.3 % gel Use 1 Drop in both eyes daily at bedtime. acetaminophen(TYLENOL 325 MG TAB) Take two(2) tablets every four(4) to six(6) hours as needed for pain. No current facility-administered medications on file prior to visit. Social History Social History Tobacco Use Smoking status: Never Smokeless tobacco: Never Vaping Use Vaping status: Never Used Substance Use Topics Alcohol use: No Drug use: No Review of Symptoms REVIEW OF SYSTEMS GENERAL: No weight loss, malaise or fevers RESPIRATORY: Negative for cough, hemoptysis, wheezing, COPD, dyspnea or shortness of breath CARDIOVASCULAR: Negative for chest pain, leg swelling, hypertension, CHF or palpitations GI: No nausea, vomiting, or diarrhea SKIN: Negative for lesions, rash, and itching ENDOCRINE: Negative for cold or heat intolerance, polyuria, polydipsia and goiter EXAM: BP 118/76 Pulse 60 Resp 16 SpO2 96% General Appearance: Well appearing, alert, in no acute distress, well-hydrated, well nourished.. Skin: Skin color, texture, turgor normal, no suspicious rashes or lesions. Lungs: Lungs clear to auscultation. No wheezing, rhonchi, rales.. Heart: RRR without murmur, gallop, or rubs. No ectopy. Abdomen: Normal abdominal exam, Abdomen soft, non-tender. Bowel sounds normal. No masses, organomegaly. Extremities: No deformities, edema, skin discoloration, clubbing or cyanosis. Good capillary refill. . Health Maintenance List Cervical Cancer Screening Never done Depression Screening Never done Anxiety Screening Never done Advance Directive Discussion Never done LDL Cholesterol due on 06/01/2024 DTaP,Tdap,Td Vaccine(1 - Tdap) due on 12/01/2024 Shingrix Vaccine(1 of 2) due on 12/01/2024 Covid-19 Vaccine( season) due on 12/01/2024 Influenza Vaccine(1) due on 07/08/2024 Annual PCP Team Chronic Disease Visit due on 04/23/2025 BP Controlled (<130/80) due on 04/23/2025 Bone Density Screening due on 06/28/2025 Diabetes Screening due on 03/19/2027 RSV Vaccine Completed Hepatitis C Screening Completed Pneumococcal Vaccine: 65+ Completed Mammogram Screening Discontinued Colorectal Cancer Screening Discontinued Data reviewed Latest Ref Rng 03/19/2024 03/21/2024 04/13/2024 WBC 3.70 - 11.00 k/uL 14.20 (H) RBC 3.90 - 5.20 m/uL 4.44 Hemoglobin 11.5 - 15.5 g/dL 13.0 Hematocrit 36.0 - 46.0 % 41.0 MCV 80.0 - 100.0 fL 92.3 MCH 26.0 - 34.0 pg 29.3 MCHC 30.5 - 36.0 g/dL 31.7 RDW-CV 11.5 - 15.0 % 17.1 (H) Platelet Count 150 - 400 k/uL 311 MPV 9.0 - 12.7 fL 11.2 Neut% % 70.6 Abs Neut (ANC) 1.45 - 7.50 k/uL 10.04 (H) Lymph% % 15.8 Abs Lymph 1.00 - 4.00 k/uL 2.24 [place]% % 9.9 Abs [place] <0.87 k/uL 1.40 (H) Eosin% % 1.7 Abs Eosin <0.46 k/uL 0.24 Baso% % 0.4 Abs Baso <0.11 k/uL 0.05 Immature Gran % % 1.6 IMMATURE GRANS (ABS) <0.10 k/uL 0.23 (H) NRBC /100 WBC 0.0 Absolute nRBC <0.01 k/uL <0.01 DTYPE Auto Color Yellow Yellow Clarity Clear Cloudy ! Glucose, Urine Negative Negative Bilirubin, Urine Negative Negative Ketones, Urine Negative Negative Specific Victor, Ur 1.005 - 1.030 1.014 Hemoglobin/Blood,Ur Negative Negative pH, Urine <8.5 7.5 Protein, Urine Negative Trace ! Urobilinogen 0.2-1.0 EU/dL 0.2 EU/dL Nitrites Negative Positive ! Leukest Negative 3+ ! WBC, Urine 0-5 /HPF >20 /HPF ! RBC, Urine 0-2 /HPF 0-2 /HPF Epithelial Cells /HPF None Seen Hyaline Cast 0 /LPF 4-10 /LPF ! Bacteria uL Negative uL >9,821 (H) Protein, Total 6.3 - 8.0 g/dL 6.2 (L) Albumin 3.9 - 4.9 g/dL 3.6 (L) Calcium 8.5 - 10.2 mg/dL 9.8 Bilirubin, Total 0.2 - 1.3 mg/dL 0.5 Alkaline Phosphatase 34 - 123 U/L 87 AST 13 - 35 U/L 11 (L) ALT 7 - 38 U/L 13 Glucose 74 - 99 mg/dL 129 (H) BUN 7 - 21 mg/dL 20 Creatinine 0.58 - 0.96 mg/dL 0.89 Sodium 136 - 144 mmol/L 140 Potassium 3.7 - 5.1 mmol/L 3.8 Chloride 97 - 105 mmol/L 105 CO2 22 - 30 mmol/L 29 Anion Gap 9 - 18 mmol/L 6 (L) eGFR >=60 mL/min/1.73m 68 Hep B Surface Ab, Qual Negative Hep B Surf Ab Quant mIU/mL <8.00 WSR 0 - 20 mm/hr 37 (H) IgG 700 - 1,600 mg/dL 318 (L) Hep C Antibody IA Negative Negative Hep B Surface Ag Negative Negative Hep B Core Ab, Total Negative Negative Legend: (H) High (L) Low ! Abnormal ASSESSMENT/PLAN: 1. Weight gain - ICD9: 783.1, ICD10: R63.5 (primary diagnosis) Obtain labs as ordered to rule out thyroid disorder and DM. Discussed cost of non stimulant medications which would not be covered by insurance. Offered referral to dietitian which she refused. Discussed calorie counting and diet higher in lean proteins and vegetables. - THYROID STIMULATING HORMONE - HEMOGLOBIN A1C 2. Essential hypertension - ICD9: 401.9, ICD10: I10 - Controlled - Continue current medications - Recommend home blood pressure monitoring, to bring results to next visit - Encouraged sodium restriction, DASH or Mediterranean diet - Recommend regular aerobic exercise 3. Coronary artery disease involving [place] coronary artery of [place] heart without angina pectoris - ICD9: 414.01, ICD10: I25.10 Asymptomatic on medical management. Continue recommendations per cardiology. - LIPID PANEL, NONFASTING 4. S/P ablation of atrial fibrillation - ICD9: V45.89, ICD10: Z98.890, Z86.79 Asymptomatic on medical management. Continue recommendations per cardiology. 5. Pulmonary fibrosis (HCC) - ICD9: 515, ICD10: J84.10 Symptoms stable Patient failed Ofev treatment. Discussed she should restart her oxygen at night and f/u with pulmonology as recommended. 6. 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 Continue Rituxan. 7. Hypokalemia - ICD9: 276.8, ICD10: E87.6 Refill. - POTASSIUM CHLORIDE ER 10 MEQ TABLET,EXTENDED RELEASE 8. OAB (overactive bladder) - ICD9: 596.51, ICD10: N32.81 Controlled on Gemtesa. 9. Encounter for screening for diabetes mellitus - ICD9: V77.1, ICD10: Z13.1 - HEMOGLOBIN A1C Jose Stewart MD documented in this encounter [facility] 04-23-2024 Note HNO ID: [id number] Author: JOSE STEWART MD Service: ? Author Type: Physician Type: Progress Notes Filed: 04/23/2024 09:41 Note Text: Chief Complaint Patient presents with: Transition Of Care: TCM- hospital discharge 04/16/24 DAMARIS Paniagua White is a 73 year old female who presents here today for Hospital Discharge Follow up and TCM. Patient admitted to [facility] from 04/15 to 04/16 for cellulitis of right upper extremity which started suddenly with spread to left chest wall. Treated with IV Unasyn while inpatient and was transitioned to Keflex 500 mg TID x 5 days on discharge. Erythema resolved much faster than expected while inpatient and there was some suspicion of possible infusion reaction from Rituxan. Blood work did show WBC of 15.1 in the ER and xrays of the forearm and humerus were negative for fracture. WBC did trend down prior to discharge. Since discharge, patient did complete her Keflex as prescribed without side effects. Erythema has resolved. Denies fever/chills, warmth to touch, swelling, pain. No new rash in other locations. Tolerating PO diet and is helping with ADLs at home. TRANSITION CARE MANAGEMENT (TCM) INITIAL CONTACT [employer] Professor Outreach Provider Action/FYI: Initial contact with patient post discharge, spoke to patient. Patient identified by name and . TRANSITION CARE MANAGEMENT INITIAL OUTREACH DOCUMENTATION: 04/17/2024 Date of Outreach: Outreach Attempt 1: Contact Made Date of Discharge 04/16/2024 SUMMARY: -Pt discharged from [facility] on 04/16/24. -Admitted for: cellulitis of right upper extremity Do you have a hospital follow up appointment with your PCP? Appointment on 04/23/[address] tSewart. Yes. Remind patient of appointment date, time, and location. If not within 14 calendar days of discharge - please reschedule accordingly. MEDICATIONS: Many patients have questions or concerns about their medications once they are home. Were you prescribed any new medications? If yes, what are those medications? Cephalexin 500mg Were you told to hold any medications? No Were any of your medications discontinued? No Do you have any questions about getting or taking your medications? No Your discharge instructions/After visit Summary (AVS) are important in guiding you through the recovery process. Is there anything I might help you understand? No Do you have all the necessary equipment and supplies at home? Yes Medical records from recent hospitalization: Records received and reviewed by PCP Past medical history, appointments, medications, allergies reviewed. Previous Medical History PAST MEDICAL HISTORY Diagnosis Date Acute gastritis without mention of hemorrhage Anticoagulant long-term use apixaban (Eliquis); indication: stroke prevention AF Arrhythmia At risk for stroke [id number] = 4 (HTN, age, CAD, female gender) Benign neoplasm of colon Breast cancer, stage 4 (HCC) 2007 right breast - chemo and radiation Coronary artery disease involving [place] coronary artery of [place]western [place] heart without angina pectoris Diaphragmatic hernia without [...] persistent over time; s/p AF catheter ablation 05/15/2019. Not needing anticoagulation. Personal history of colonic polyps Pulmonary fibrosis (HCC) Dr. 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 Jackson APPENDECTOMY CARDIAC CATH Left 05/15/2008 preserved LV [...] years ECHOCARDIOGRAM 03/23/2018 LVEF 60%; stage I diasto (more content not included)... [facility] 04-23-2024 History of Present illness Narrative Chief Complaint Patient presents with: Transition Of Care: TCM- hospital discharge 04/16/24 HPI Karen Paniagua White is a 73 year old female who presents here today for Hospital Discharge Follow up and TCM. Patient admitted to [facility] from 04/15 to 04/16 for cellulitis of right upper extremity which started suddenly with spread to left chest wall. Treated with IV Unasyn while inpatient and was transitioned to Keflex 500 mg TID x 5 days on discharge. Erythema resolved much faster than expected while inpatient and there was some suspicion of possible infusion reaction from Rituxan. Blood work did show WBC of 15.1 in the ER and xrays of the forearm and humerus were negative for fracture. WBC did trend down prior to discharge. Since discharge, patient did complete her Keflex as prescribed without side effects. Erythema has resolved. Denies fever/chills, warmth to touch, swelling, pain. No new rash in other locations. Tolerating PO diet and is helping with ADLs at home. TRANSITION CARE MANAGEMENT (TCM) INITIAL CONTACT Urban Planning Professor Outreach Provider Action/FYI: Initial contact with patient post discharge, spoke to patient. Patient identified by name and . TRANSITION CARE MANAGEMENT INITIAL OUTREACH DOCUMENTATION: 04/17/2024 Date of Outreach: Outreach Attempt 1: Contact Made Date of Discharge 04/16/2024 SUMMARY: -Pt discharged from [facility] on 04/16/24. -Admitted for: cellulitis of right upper extremity Do you have a hospital follow up appointment with your PCP? Appointment on 04/23/[address] Stewart. Yes. Remind patient of appointment date, time, and location. If not within 14 calendar days of discharge - please reschedule accordingly. MEDICATIONS: Many patients have questions or concerns about their medications once they are home. Were you prescribed any new medications? If yes, what are those medications? Cephalexin 500mg Were you told to hold any medications? No Were any of your medications discontinued? No Do you have any questions about getting or taking your medications? No Your discharge instructions/After visit Summary (AVS) are important in guiding you through the recovery process. Is there anything I might help you understand? No Do you have all the necessary equipment and supplies at home? Yes Medical records from recent hospitalization: Records received and reviewed by PCP Past medical history, appointments, medications, allergies reviewed. Previous Medical History PAST MEDICAL HISTORY Diagnosis Date Acute gastritis without mention of hemorrhage Anticoagulant long-term use apixaban (Eliquis); indication: stroke prevention AF Arrhythmia At risk for stroke [id number] = 4 (HTN, age, CAD, female gender) Benign neoplasm of colon Breast cancer, stage 4 (HCC) 2007 right breast - chemo and radiation Coronary artery disease involving [place] coronary artery of [place]western [place] heart without angina pectoris Diaphragmatic hernia without [...] persistent over time; s/p AF catheter ablation 05/15/2019. Not needing anticoagulation. Personal history of colonic polyps Pulmonary fibrosis (HCC) Dr. 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 Jackson APPENDECTOMY CARDIAC CATH Left 05/15/2008 preserved LV [...] stent to mid LAD; PTCA to D1; [facility] LAP ADJUSTABLE GASTRIC BAND lapband 2006 released [...] Extraction with PC IOL (Restor) right eye Family History FAMILY HISTORY Problem Relation Age of Onset Breast Cancer Mother 68 Treated with lumpectomy only other (cerebral hemmorrage) Mother Colon Cancer Father 68 of metastatic colon cancer Heart disease Father No Known Problems Sister No Known Problems Sister Emphysema Sister No Known Problems Brother No Known Problems Brother Heart Attack Brother 62 suddenly (arrest) Diabetes Brother other (cerebral hemmorhage) Maternal Grandmother other (sepsis) Maternal Grandfather Breast Cancer Paternal Grandmother No Known Problems Paternal Grandfather Patient Allergies ALLERGIES No Known Allergies Current Medications Current Outpatient Medications on File Prior to Visit Medication Sig lipase/protease/amylase (ZENPEP ORAL) Take 2 capsules by mouth with meals. potassium chloride (K-TAB) 10 mEq tablet Take 2 tablets by mouth two times a day. OXYGEN, HOME THERAPY, Inhale 2 L/min as instructed as directed. budesonide, enteric coated (ENTOCORT EC) 3 mg 24 hr capsule TAKE 3 CAPSULES BY MOUTH IN THE MORNING FOR MICROSCOPIC COLITIS propylene glycoL (SYSTANE COMPLETE) 0.6 % drop Use 1 Drop in both eyes three times daily. Artificial Tear, Hypromellose, (GENTEAL TEARS SEVERE GEL) 0.3 % gel Use 1 Drop in both eyes daily at bedtime. aspirin, enteric coated (ASPIRIN, ENTERIC COATED) 81 [...] needed for pain. No current facility-administered medications on file prior to visit. Social History Social History Tobacco Use Smoking status: Never Smokeless tobacco: Never Vaping Use Vaping Use: Never used Substance Use Topics Alcohol use: No Drug use: No Review of Symptoms REVIEW OF SYSTEMS GENERAL: No weight loss, malaise or fevers RESPIRATORY: Negative for cough, hemoptysis, wheezing, COPD, dyspnea or shortness of breath CARDIOVASCULAR: Negative for chest pain, leg swelling, hypertension, CHF or palpitations GI: No nausea, vomiting, or diarrhea : No history of dysuria, frequency or incontinence SKIN: Negative for lesions, rash, and itching EXAM: BP 116/70 Pulse 68 Temp 36.8 C (98.2 F) SpO2 94% General Appearance: Well appearing, alert, in no acute distress, well-hydrated, well nourished.. Skin: Skin color, texture, turgor normal, no suspicious rashes or lesions. Lungs: Lungs clear to auscultation. No wheezing, rhonchi, rales.. Heart: RRR without murmur, gallop, or rubs. No ectopy. Abdomen: Normal abdominal exam, Abdomen soft, non-tender. Bowel sounds normal. No masses, organomegaly. Extremities: No deformities, edema, skin discoloration, clubbing or cyanosis. Good capillary refill. . Health Maintenance List Cervical Cancer Screening Never done Colorectal Cancer Screening due on 10/09/2023 Advance Directive Discussion Never done Behavioral Health Screening Never done DTaP,Tdap,Td Vaccine(1 - Tdap) due on 12/01/2024 Shingrix Vaccine(1 of 2) due on 12/01/2024 Covid-19 Vaccine() due on 12/01/2024 LDL Cholesterol due on 06/01/2024 Annual PCP Team Chronic Disease Visit due on 03/06/2025 BP Controlled (<130/80) due on 03/06/2025 Bone Density Screening due on 06/28/2025 Diabetes Screening due on 03/19/2027 Lipid Screening due on 06/01/2028 Influenza Vaccine Completed RSV Vaccine Completed Hepatitis C Screening Completed Pneumococcal Vaccine: 65+ Completed Mammogram Screening Discontinued Data reviewed Latest Ref Rng 03/19/2024 03/21/2024 04/13/2024 WBC 3.70 - 11.00 k/uL 14.20 (H) RBC 3.90 - 5.20 m/uL 4.44 Hemoglobin 11.5 - 15.5 g/dL 13.0 Hematocrit 36.0 - 46.0 % 41.0 MCV 80.0 - 100.0 fL 92.3 MCH 26.0 - 34.0 pg 29.3 MCHC 30.5 - 36.0 g/dL 31.7 RDW-CV 11.5 - 15.0 % 17.1 (H) Platelet Count 150 - 400 k/uL 311 MPV 9.0 - 12.7 fL 11.2 Neut% % 70.6 Abs Neut (ANC) 1.45 - 7.50 k/uL 10.04 (H) Lymph% % 15.8 Abs Lymph 1.00 - 4.00 k/uL 2.24 [place]% % 9.9 Abs [place] <0.87 k/uL 1.40 (H) Eosin% % 1.7 Abs Eosin <0.46 k/uL 0.24 Baso% % 0.4 Abs Baso <0.11 k/uL 0.05 Immature Gran % % 1.6 IMMATURE GRANS (ABS) <0.10 k/uL 0.23 (H) NRBC /100 WBC 0.0 Absolute nRBC <0.01 k/uL <0.01 DTYPE Auto Color Yellow Yellow Clarity Clear Cloudy ! Glucose, Urine Negative Negative Bilirubin, Urine Negative Negative Ketones, Urine Negative Negative Specific Victor, Ur 1.005 - 1.030 1.014 Hemoglobin/Blood,Ur Negative Negative pH, Urine <8.5 7.5 Protein, Urine Negative Trace ! Urobilinogen 0.2-1.0 EU/dL 0.2 EU/dL Nitrites Negative Positive ! Leukest Negative 3+ ! WBC, Urine 0-5 /HPF >20 /HPF ! RBC, Urine 0-2 /HPF 0-2 /HPF Epithelial Cells /HPF None Seen Hyaline Cast 0 /LPF 4-10 /LPF ! Bacteria uL Negative uL >9,821 (H) Protein, Total 6.3 - 8.0 g/dL 6.2 (L) Albumin 3.9 - 4.9 g/dL 3.6 (L) Calcium 8.5 - 10.2 mg/dL 9.8 Bilirubin, Total 0.2 - 1.3 mg/dL 0.5 Alkaline Phosphatase 34 - 123 U/L 87 AST 13 - 35 U/L 11 (L) ALT 7 - 38 U/L 13 Glucose 74 - 99 mg/dL 129 (H) BUN 7 - 21 mg/dL 20 Creatinine 0.58 - 0.96 mg/dL 0.89 Sodium 136 - 144 mmol/L 140 Potassium 3.7 - 5.1 mmol/L 3.8 Chloride 97 - 105 mmol/L 105 CO2 22 - 30 mmol/L 29 Anion Gap 9 - 18 mmol/L 6 (L) eGFR >=60 mL/min/1.73m 68 Hep B Surface Ab, Qual Negative Hep B Surf Ab Quant mIU/mL <8.00 WSR 0 - 20 mm/hr 37 (H) IgG 700 - 1,600 mg/dL 318 (L) Hep C Antibody IA Negative Negative Hep B Surface Ag Negative Negative Hep B Core Ab, Total Negative Negative Legend: (H) High (L) Low ! Abnormal ASSESSMENT/PLAN: 1. Cellulitis of right upper extremity - ICD9: 682.3, ICD10: L03.113 (primary diagnosis) Resolved. Completed course of abx. Red flags for re-assessment reviewed with patient in detail. 2. Leukocytosis, unspecified type - ICD9: 288.60, ICD10: D72.829 Resolved prior to discharge. Will not repeat labs with resolution of her symptoms. 3. Essential hypertension - ICD9: 401.9, ICD10: I10 - Controlled - Continue current medications - Recommend home blood pressure monitoring, to bring results to next visit - Encouraged sodium restriction, DASH or Mediterranean diet - Recommend regular aerobic exercise Jose Stewart MD documented in this encounter [facility] 04-17-2024 Note HNO ID: [id number] Author: JOSE STEWART MD Service: ? Author Type: Physician Type: Progress Notes Filed: 04/17/2024 11:58 Note Text: Reviewed. [facility] 04-17-2024 History of Present illness Narrative Reviewed. TRANSITION CARE MANAGEMENT (TCM) INITIAL CONTACT Urban Planning Professor Outreach Provider Action/FYI: Initial contact with patient post discharge, spoke to patient. Patient identified by name and . TRANSITION CARE MANAGEMENT INITIAL OUTREACH DOCUMENTATION: 04/17/2024 Date of Outreach: Outreach Attempt 1: Contact Made Date of Discharge 04/16/2024 SUMMARY: -Pt discharged from [facility] on 04/16/24. -Admitted for: cellulitis of right upper extremity Do you have a hospital follow up appointment with your PCP? Appointment on 04/23/[address] Stewart. Yes. Remind patient of appointment date, time, and location. If not within 14 calendar days of discharge - please reschedule accordingly. MEDICATIONS: Many patients have questions or concerns about their medications once they are home. Were you prescribed any new medications? If yes, what are those medications? Cephalexin 500mg Were you told to hold any medications? No Were any of your medications discontinued? No Do you have any questions about getting or taking your medications? No Your discharge instructions/After visit Summary (AVS) are important in guiding you through the recovery process. Is there anything I might help you understand? No Do you have all the necessary equipment and supplies at home? Yes Medical records from recent hospitalization: Records received and reviewed by PCP documented in this encounter [facility] 04-17-2024 Note Patient Outreach (FA MPWS) DEYAKAREN Paniagua ([id number]) 1950 F [facility] Date Time Provider Department 04/17/24 EVONNE CASTRO During your visit today, we recorded the following information about you: Evonne Castro LPN 05/18/2024 3:03 AM Signed TRANSITION CARE MANAGEMENT (TCM) INITIAL CONTACT Urban Planning Professor Outreach Provider Action/FYI: Initial contact with patient post discharge, spoke to patient. Patient identified by name and . TRANSITION CARE MANAGEMENT INITIAL OUTREACH DOCUMENTATION: 04/17/2024 Date of Outreach: Outreach Attempt 1: Contact Made Date of Discharge 04/16/2024 SUMMARY: -Pt discharged from [facility] on 04/16/24. -Admitted for: cellulitis of right upper extremity Do you have a hospital follow up appointment with your PCP? Appointment on 04/23/[address] Stewart. Yes. Remind patient of appointment date, time, and location. If not within 14 calendar days of discharge - please reschedule accordingly. MEDICATIONS: Many patients have questions or concerns about their medications once they are home. Were you prescribed any new medications? If yes, what are those medications? Cephalexin 500mg Were you told to hold any medications? No Were any of your medications discontinued? No Do you have any questions about getting or taking your medications? No Your discharge instructions/After visit Summary (AVS) are important in guiding you through the recovery process. Is there anything I might help you understand? No Do you have all the necessary equipment and supplies at home? Yes Medical records from recent hospitalization: Records received and reviewed by PCP Jose Stewart MD 04/17/2024 11:58 AM Signed Reviewed. Allergies As of Date: 04/17/2024 (No Known Allergies) Date Reviewed: 04/13/2024 Reviewed by: Zenia uHrtado RN - Fully Assessed Reason for Visit: Transition Of Care [7254] Prescriptions as of 05/18/2024 - lipase/protease/amylase (ZENPEP ORAL) Take 2 capsules by mouth with meals. - potassium chloride (K-TAB) 10 mEq tablet Take 2 tablets by mouth two times a day. - OXYGEN, HOME THERAPY, Inhale 2 L/min as instructed as directed. 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 - Artificial Tear, Hypromellose, (GENTEAL TEARS SEVERE GEL) 0.3 % gel Use 1 Drop in both eyes daily at bedtime. - aspirin, enteric coated (ASPIRIN, ENTERIC COATED) 81 mg EC tablet Take 81 mg by mouth once daily. - Cholecalciferol, Vitamin D3, 50 mcg (2,000 unit) cap Take by mouth. - metoprolol tartrate, short acting, (LOPRESSOR) 25 mg tablet Take 12.5 mg by mouth twice daily. - atorvastatin calcium(LIPITOR 10 MG TAB) Take one(1) tablet daily. - acetaminophen(TYLENOL 325 MG TAB) Take two(2) tablets every four(4) to six(6) hours as needed for pain. Problem List As Of Date 04/17/2024 Noted Resolved Acute gastritis without mention of hemorrhage [*08/30/2006 05/15/2019 DIAPHRAGMATIC HERNIA [K44.9] 08/30/2006 Breast cancer, stage 4 (HCC) [C50.919] 09/16/2009 10/27/2015 Tear film insufficiency, unspecified - Both Eye*08/28/2014 08/26/2016 Lens replaced by other means - Both Eyes [Z96.1]08/28/2014 08/26/2016 Other vitreous opacities - Both Eyes [H43.399] 08/28/2014 08/26/2016 Hyperlipidemia [E78.5] 08/28/2014 Floater, vitreous [H43.399] 08/22/2015 08/26/2016 Dry eye syndrome [H04.129] 08/22/2015 08/26/2016 Pseudophakia of both eyes [Z96.1] 08/22/2015 Colon cancer screening [Z12.11] 09/11/2015 09/11/2015 Vitreous floaters of both eyes [H43.393] 08/26/2016 Dry eye syndrome of both eyes [H04.123] 08/26/2016 Personal history of breast cancer [Z85.3] 01/24/2017 Punctate keratitis, 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] 08/31/2017 History of colonic polyps [Z86.010] 07/24/2018 Family history of colon cancer in father [Z80.0]07/24/2018 Obstructive sleep apnea [G47.33] 08/30/2018 08/20/2021 Shortness of breath [R06.02] 10/27/2016 Paroxysmal atrial fibrillation (HCC) [I48.0] 03/14/2019 05/15/2019 Palpitations [R00.2] 03/14/2019 Nonrheumatic mitral (valve) insufficiency [I34.*03/14/2019 Nonrheumatic tricuspid (valve) insufficiency [I*03/14/2019 Obesity, Class I, BMI 30-34.9 [E66.9] 03/19/2019 At risk for stroke [Z91.89] Anticoagulant long-term use [Z79.01] Persistent atrial fibrillation (HCC) [I48.19] 05/15/2019 05/31/2023 Status post catheter ablation of atrial fibrill* 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*07/22/2021 Coronary artery disease involving [place]western sh[place]one [place]*08/20/2021 Essential hypertension [I10] 10/27/2016 History of appendectomy [Z90.49] 08/20/2021 History of bariatric surgery [Z98.84] 08/20/2021 History of cataract extraction [Z98.49] 08/20/2021 History of tonsil (more content not included)... [facility] 04-06-2024 Telephone encounter Note Please review outside medical records that have been scanned into [employer] and forward to appropriate staff for review/approval of treatment. Zenia Herrera [facility] 04-06-2024 Miscellaneous Notes Please review outside medical records that have been scanned into [employer] and forward to appropriate staff for review/approval of treatment. Zenia Herrera Patient called and left voicemail. She stated that an outside med list was updated before she could proceed with infusion. Information has been scanned into patient chart. Could you please follow up with her to let her know if this is sufficient for her to get her upcoming infusion? Thank you! Received outside medical records. Scanned into chart for review. documented in this encounter [facility] 04-06-2024 Telephone encounter Note Patient called and left voicemail. She stated that an outside med list was updated before she could proceed with infusion. Information has been scanned into patient chart. Could you please follow up with her to let her know if this is sufficient for her to get her upcoming infusion? Thank you! [facility] 03-28-2024 Telephone encounter Note Received outside medical records. Scanned into chart for review. [facility] 03-08-2024 Telephone encounter Note Spoke with patient and rescheduled missed infusion. Adjusted balance of infusion schedule. Zenia Herrera [facility] 03-08-2024 Miscellaneous Notes Spoke with patient and rescheduled missed infusion. Adjusted balance of infusion schedule. Zenia Herrera Please call patient to ask about why she was hospitalized and what treatment, if any, has been given to her so we can decide about the infusion. Thanks Electronically Signed by Amor Guzman MD, MPH Pt identified by name and date of Pt informed me that she was released from the hospital on 03/01/24 due to a mini-stroke Pt was scheduled for an infusion 02/29/[address] [facility] but missed infusion appointment due to pt was in hospital Pt states that she usually have infusions every 6 months Pt is scheduled for infusion on 08/15/24 Pt wants to know if she should have infusion sooner than 08/15/24 Pt could be reached at [phone] documented in this encounter [facility] 03-08-2024 Telephone encounter Note Please call patient to ask about why she was hospitalized and what treatment, if any, has been given to her so we can decide about the infusion. Thanks Electronically Signed by Amor Guzman MD, MPH [facility] Work Phone: 03-06-2024 Note HNO ID: [id number] Author: JOSE STEWART MD Service: ? Author Type: Physician Type: Progress Notes Filed: 03/06/2024 11:26 Note Text: Chief Complaint Patient presents with: Hospital F/U HPI Karen Falk is a 73 year old female who presents here today for Hospital Discharge Follow up. Accompanied today by . Patient admitted to [facility] from 02/28 to 03/01 after presenting to the ER with confusion associated with nausea and billious vomiting. Workup in the hospital and ER was largely unremarkable including MRI brain, CXR, CTA chest, echo, CBC, TSH, ammonia, CMP, procacalcitonin. Potassium slightly low at 3.4. CRP elevated to 33.2 with normal ESR. Symptoms improved siginficantly the following day and was discharged home without need for PT/OT. Diagnosed with transient global amnesia. Since discharge, patient has not had any recurrent confusion and her nausea and vomiting has resolved. Back to her baseline in regards to her ADLs. Taking all medications as prescribed. Denies headache, vision changes, slurred speech, facial droop, numbness/tingling/weakness. Needs refill on her potassium supplement. Will be out in 4 days. Past medical history, appointments, medications, allergies reviewed. Previous Medical History PAST MEDICAL HISTORY Diagnosis Date Acute gastritis without mention of hemorrhage Anticoagulant long-term use apixaban (Eliquis); indication: stroke prevention AF Arrhythmia At risk for stroke [id number] = 4 (HTN, age, CAD, female gender) Benign neoplasm of colon Breast cancer, stage 4 (HCC) 2007 right breast - chemo and radiation Coronary artery disease involving [place]western [place] coronary artery of [place]western sh[place]one heart without angina pectoris Diaphragmatic hernia without [...] persistent over time; s/p AF catheter ablation 05/15/2019. Not needing anticoagulation. Personal history of colonic polyps Pulmonary fibrosis (HCC) Dr. 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 Jackson APPENDECTOMY CARDIAC CATH Left 05/15/2008 preserved LV [...] stent to mid LAD; PTCA to D1; [facility] LAP ADJUSTABLE GASTRIC BAND lapband 2006 released [...] Extraction with PC IOL (Restor) right eye Family History FAMILY HISTORY Problem Relation Age of Onset Breast Cancer Mother 68 Treated with lumpectomy only other (cerebral hemmorrage) Mother Colon Cancer Father 68 of metastatic colon cancer Heart disease Father No Known Problems Sister No Known Problems Sister Emphysema Sister No Known Problems Brother No Known Problems B (more content not included)... [facility] 03-06-2024 History of Present illness Narrative Chief Complaint Patient presents with: Hospital F/U HPI Karen Falk is a 73 year old female who presents here today for Hospital Discharge Follow up. Accompanied today by . Patient admitted to [facility] from 02/28 to 03/01 after presenting to the ER with confusion associated with nausea and billious vomiting. Workup in the hospital and ER was largely unremarkable including MRI brain, CXR, CTA chest, echo, CBC, TSH, ammonia, CMP, procacalcitonin. Potassium slightly low at 3.4. CRP elevated to 33.2 with normal ESR. Symptoms improved siginficantly the following day and was discharged home without need for PT/OT. Diagnosed with transient global amnesia. Since discharge, patient has not had any recurrent confusion and her nausea and vomiting has resolved. Back to her baseline in regards to her ADLs. Taking all medications as prescribed. Denies headache, vision changes, slurred speech, facial droop, numbness/tingling/weakness. Needs refill on her potassium supplement. Will be out in 4 days. Past medical history, appointments, medications, allergies reviewed. Previous Medical History PAST MEDICAL HISTORY Diagnosis Date Acute gastritis without mention of hemorrhage Anticoagulant long-term use apixaban (Eliquis); indication: stroke prevention AF Arrhythmia At risk for stroke [id number] = 4 (HTN, age, CAD, female gender) Benign neoplasm of colon Breast cancer, stage 4 (HCC) 2007 right breast - chemo and radiation Coronary artery disease involving [place] coronary artery of [place]western sh[place] heart without angina pectoris Diaphragmatic hernia without [...] persistent over time; s/p AF catheter ablation 05/15/2019. Not needing anticoagulation. Personal history of colonic polyps Pulmonary fibrosis (HCC) Dr. 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 Jackson APPENDECTOMY CARDIAC CATH Left 05/15/2008 preserved LV [...] stent to mid LAD; PTCA to D1; [facility] LAP ADJUSTABLE GASTRIC BAND lapband 2006 released [...] Extraction with PC IOL (Restor) right eye Family History FAMILY HISTORY Problem Relation Age of Onset Breast Cancer Mother 68 Treated with lumpectomy only other (cerebral hemmorrage) Mother Colon Cancer Father 68 of metastatic colon cancer Heart disease Father No Known Problems Sister No Known Problems Sister Emphysema Sister No Known Problems Brother No Known Problems Brother Heart Attack Brother 62 suddenly (arrest) Diabetes Brother other (cerebral hemmorhage) Maternal Grandmother other (sepsis) Maternal Grandfather Breast Cancer Paternal Grandmother No Known Problems Paternal Grandfather Patient Allergies ALLERGIES No Known Allergies Current Medications Current Outpatient Medications on File Prior to Visit Medication Sig lipase/protease/amylase (ZENPEP ORAL) Take by mouth two times a day. Patient currently using sample pack and finding it effective for her chronic diarrhea OXYGEN, HOME THERAPY, Inhale 2 L/min as instructed as directed. budesonide, enteric coated (ENTOCORT EC) 3 mg [...] needed for pain. No current facility-administered medications on file prior to visit. Social History Social History Tobacco Use Smoking status: Never Smokeless tobacco: Never Vaping Use Vaping Use: Never used Substance Use Topics Alcohol use: No Drug use: No Review of Symptoms REVIEW OF SYSTEMS GENERAL: No weight loss, malaise or fevers RESPIRATORY: Negative for cough, hemoptysis, wheezing, COPD, dyspnea or shortness of breath CARDIOVASCULAR: Negative for chest pain, leg swelling, hypertension, CHF or palpitations GI: No nausea, vomiting, or diarrhea : No history of dysuria, frequency or incontinence SKIN: Negative for lesions, rash, and itching EXAM: BP 120/64 Pulse 73 Temp 37.1 C (98.7 F) Resp 16 SpO2 95% General Appearance: Well appearing, AOx3, in no acute distress, well-hydrated, well nourished.. Skin: Skin color, texture, turgor normal, no suspicious rashes or lesions. Neck: Supple, no adenopathy; thyroid symmetric, normal size, no bruits. Lungs: Lungs clear to auscultation. No wheezing, rhonchi, rales.. Heart: RRR without murmur, gallop, or rubs. No ectopy. Abdomen: Normal abdominal exam, Abdomen soft, non-tender. Bowel sounds normal. No masses, organomegaly. Extremities: No deformities, edema, skin discoloration, clubbing or cyanosis. Good capillary refill. . Neurologic: Negative findings: speech normal, mental status intact, cranial nerves 2-12 intact, muscle tone normal, muscle strength normal, sensation to light touch and pinprick normal, reflexes normal and symmetric. Health Maintenance List Colorectal Cancer Screening due on 10/09/2023 Advance Directive Discussion Never done Behavioral Health Screening Never done DTaP,Tdap,Td Vaccine(1 - Tdap) due on 12/01/2024 Shingrix Vaccine(1 of 2) due on 12/01/2024 Covid-19 Vaccine( season) due on 12/01/2024 BP Controlled (<130/80) due on 05/31/2024 LDL Cholesterol due on 06/01/2024 Annual PCP Team Chronic Disease Visit due on 12/01/2024 Bone Density Screening due on 06/28/2025 Diabetes Screening due on 02/07/2027 Lipid Screening due on 06/01/2028 Influenza Vaccine Completed RSV Vaccine Completed Hepatitis C Screening Completed Pneumococcal Vaccine: 65+ Completed Mammogram Screening Discontinued ASSESSMENT/PLAN: 1. Transient global amnesia - ICD9: 437.7, ICD10: G45.4 (primary diagnosis) Resolved. Workup in the hospital unremarkable. Will obtain US of carotids and call with results. Red flags for re-assessment reviewed with patient in detail. - US CAROTID ARTERIES [facility] 2. Hypokalemia - ICD9: 276.8, ICD10: E87.6 Recheck level. Refill potassium as requested. - POTASSIUM CHLORIDE ER 10 MEQ TABLET,EXTENDED RELEASE - COMPREHENSIVE METABOLIC PANEL Jose Stewart MD documented in this encounter [facility] 03-06-2024 Note Formatting of this n ote might be different from the original. March 06, 2024 PID: [id number] Karen Falk [address] [place] [address] Dear Ms. Falk, We are pleased to inform you that the results of your recent breast imaging exam on 03/05/2024 are normal. Early detection of cancer is very important. We also understand recommendations regarding breast cancer screening are controversial. Please discuss with your primary care provider which strategy is best for you and whether a mammogram is right for you. Your imaging studies and report will be kept on file at [facility] as part of your permanent medical record and are available for your continuing care. Thank you for allowing us to help in meeting your health care needs. Sincerely, Dr. Berger Interpreting Radiologist [facility] (Normal over 40) [facility] 03-06-2024 Miscellaneous Notes March 06, 2024 PID: [id number] Karenreece Falk [address] [place] [address] Dear Ms. Falk, We are pleased to inform you that the results of your recent breast imaging exam on 03/05/2024 are normal. Early detection of cancer is very important. We also understand recommendations regarding breast cancer screening are controversial. Please discuss with your primary care provider which strategy is best for you and whether a mammogram is right for you. Your imaging studies and report will be kept on file at [facility] as part of your permanent medical record and are available for your continuing care. Thank you for allowing us to help in meeting your health care needs. Sincerely, Dr. Berger Interpreting Radiologist [facility] (Normal over 40) documented in this encounter [facility] 03-05-2024 History of Present illness Narrative Radiology Service Progress Note PATIENT NAME: Karen Falk DATE OF SERVICE: March 05, 2024 TIME: 12:33 PM PATIENT IDENTITY VERIFICATION COMPLETED USING TWO (2) IDENTIFIERS: Name and Date of confirmed by patient verbally. FALL SCREENING: Has the patient had 2 falls in the last year or 1 fall with injury or currently using an Ambulatory Assistive Device (Walker, Cane, Wheelchair, Crutches, etc.)? Yes, Patient High Risk for Falls What interventions were put in place to prevent falls during this visit? Offered Assistance with Transfers/Clothing and Increased Observations by Caregivers PATIENT GENDER DATA: Female. status: : No status: NO. PATIENT RELEVANT IMPLANT DATA REVIEWED: Not Applicable PATIENT PRESENTS WITH AN IMPLANTABLE OR ATTACHED DESIGN PAINTER: No RADIOLOGY DEPARTMENT: Mammography PERIPHERAL IV DATA: Not applicable SIGNED BY: Kristy Jones March 05, 2024 12:33 PM documented in this encounter [facility] 03-05-2024 Note HNO ID: [id number] Author: WALI YOO Mammo Tech Service: ? Author Type: Technologist Type: Progress Notes Filed: 03/05/2024 12:33 Note Text: Radiology Service Progress Note PATIENT NAME: Karen Falk DATE OF SERVICE: March 05, 2024 TIME: 12:33 PM PATIENT IDENTITY VERIFICATION COMPLETED USING TWO (2) IDENTIFIERS: Name and Date of confirmed by patient verbally. FALL SCREENING: Has the patient had 2 falls in the last year or 1 fall with injury or currently using an Ambulatory Assistive Device (Walker, Cane, Wheelchair, Crutches, etc.)? Yes, Patient High Risk for Falls What interventions were put in place to prevent falls during this visit? Offered Assistance with Transfers/Clothing and Increased Observations by Caregivers PATIENT GENDER DATA: Female. status: : No status: NO. PATIENT RELEVANT IMPLANT DATA REVIEWED: Not Applicable PATIENT PRESENTS WITH AN IMPLANTABLE OR ATTACHED DESIGN PAINTER: No RADIOLOGY DEPARTMENT: Mammography PERIPHERAL IV DATA: Not applicable SIGNED BY: Kristy Jones March 05, 2024 12:33 PM [facility] 03-02-2024 Telephone encounter Note Pt identified by name and date of Pt informed me that she was released from the hospital on 03/01/24 due to a mini-stroke Pt was scheduled for an infusion 02/29/[address] [facility] but missed infusion appointment due to pt was in hospital Pt states that she usually have infusions every 6 months Pt is scheduled for infusion on 08/15/24 Pt wants to know if she should have infusion sooner than 08/15/24 Pt could be reached at [phone] [facility] 02-27-2024 Telephone encounter Note Spoke with pt and information listed below given. Pt verbalizes understanding. Transferred pt to multicraft operator. Filiberto Suarez LPN [facility] 02-27-2024 Miscellaneous Notes Spoke with pt and information listed below given. Pt verbalizes understanding. Transferred pt to multicraft operator. Filiberto Suarez LPN Order approved for screening mammogram. . Pt called for mammogram orders. Pt reports she was having them done at [facility] when her provider was at [facility]. She now has a provider here and is willing to get done here. Please advise pt when orders are in and help get apt booked. On problem list it mentions personal history of breast cancer. Filiberto Suarez LPN documented in this encounter [facility] 02-27-2024 Telephone encounter Note Order approved for screening mammogram. . [facility] 02-24-2024 Telephone encounter Note Pt called for mammogram orders. Pt reports she was having them done at [facility] when her provider was at [facility]. She now has a provider here and is willing to get done here. Please advise pt when orders are in and help get apt booked. On problem list it mentions personal history of breast cancer. Filiberto Suarez LPN [facility] 01-19-2024 Miscellaneous Notes Pt notified. Filiberto Suarez LPN Reviewed. Medication discontinued from med list. Phoned patient and reviewed provider's message with her. Patient voiced understanding but declines wanting to try increasing medication or appointment at this time. She reports she has other issues she is dealing with right now and prefers to just stop the medication. We started her on a low dose of this medication and could increase the dosage to 2 mg BID if she is not having side effects. If she would like to discuss symptoms and treatment earlier, we have openings available today. Pt called to let you know the medication Detrol is not helping with her leaky bladder and she is going to d/c. She reports she will discuss further at her next apt. Please d/c medication. Filiberto Suarez LPN documented in this encounter [facility] 01-10-2024 Note HNO ID: [id number] Author: AMOR STAPLETON MD Service: ? Author Type: Physician Type: Progress Notes Filed: 02/05/2024 18:28 Note Text: Karen Falk is a 73 year old female here for follow-up of GPA Evaluation Date: 01/10/2024 Last Visit in Rheumatology: 08/31/2023 (with Amor Escobar) ACTIVE PROBLEM LIST Benign Neoplasm of Colon - 12/01/2023 Esophageal Reflux - 12/01/2023 Pulmonary Fibrosis (Hcc) - 12/01/2023 Osteoporosis, Unspecified - 12/01/2023 Coronary Artery Disease Involving [place] Coronary Artery of [place] Heart Without Angina Pectoris - 08/20/2021 History of Appendectomy - 08/20/2021 History of Bariatric Surgery - 08/20/2021 History of Cataract Extraction - 08/20/2021 History of Tonsillectomy - 08/20/2021 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 Status Post Catheter Ablation of Atrial Fibrillation Comment: balloon catheter cryoablation atrial fibrillation PVAI 05/15/2019 Obesity, Class I, Bmi 30-34.9 - 03/19/2019 At Risk for Stroke Comment: [id number] = 3 (HTN, age, female gender) Anticoagulant Long-Term Use Comment: apixaban (Eliquis); indication: stroke prevention AF Palpitations - 03/14/2019 Nonrheumatic Mitral (Valve) Insufficiency - 03/14/2019 Nonrheumatic Tricuspid (Valve) Insufficiency - 03/14/2019 History of Colonic Polyps - 07/24/2018 Comment: Added automatically from request for surgery [id number] Family History of Colon Cancer in Father - 07/24/2018 Comment: Added automatically from request for surgery [id number] Punctate Keratitis, Bilateral - 08/31/2017 Personal History [...] Karen Falk states that she has been having progressively worse SOB and PFTS and chest CT showed worsening of disease - fibrosis. Logger All Round recommended Ofev. Has a chronic dry cough No pleuritic chest pain pulse ox at rest ~ 95%, and ~84% with minimal walking in the house No nasal, sinus or ear symptom at this time SMALL/MEDIUM VESSEL VASCULITIS ROS: GENERAL: fatigue FEVER: none WEIGHT CHANGE: none ENT: negative for, sinus tenderness, nasal crusting, epistaxis, ear pain, sore throat, difficulty swallowing, mouth lesions EYES: negative for , pain, redness, visual blurring RESPIRATORY: negative for, hemoptysis CARDIOVASCULAR: negative for, chest pain GASTROINTESTINAL: negative for, abdominal pain, vomiting, diarrhea URINARY: negative for, dysuria, hematuria MUSCULOSKELETAL: negative for, joint pain, joint swelling NEUROLOGIC: negative for, numbness SKIN: negative for, rash REVIEW OF FAMILY AND/OR SOCIAL HISTORY: The family and/or social were reviewed at todays visit and no changes were noted. Date of last DEXA: 06/30/2023 Current Outpatient Medications Medication Sig tolterodine (DETROL) 1 mg tablet Take 1 tablet by mouth two times a day. OXYGEN, HOME THERAPY, Inhale 2 L/min as instructed as directed. budesonide, enteric coated (ENTOCORT EC) 3 mg [...] for this visit. PHYSICAL EXAMINATION Blood pressure 141/67, pulse 73, temperature 36.7 ?C (98.1 ?F), temperature source Oral, height 162.6 cm (5' 4 ), weight 83.9 kg (185 lb). GENERAL APPEARANCE: well SKIN: normal without rashes or lesions EYES: conjunctiva clear, PERRL, EOM normal EARS: External ears normal, TM's normal NOSE/SINUSES: normal OROPHARYNX: no oral lesions present, no oral ulcers. LUNGS: clear HEART: RRR, no gallops, rubs or murmurs MUSCULOSKELETAL: no joint tenderness or swelling NEURO: motor 5/5 Lab results: WBC Date Value Ref Range Status 11/22/2023 12.24 (H) 3.70 - 11.00 k/uL Final Hemoglobin Date Value Ref Range Status 11/22/2023 13.2 11.5 - 15.5 g/dL Final Hematocrit Date Value Ref Range Status 11/22/2023 41.7 36.0 - 46 (more content not included)... [facility] 12-01-2023 Note HNO ID: [id number] Author: JOSE STEWART MD Service: ? Author [...] pulmonary fibrosis managed by Dr. Rae at [facility] on a yearly basis. Uses oxygen at night. Not on any inhalers at this time. Symptoms stable in the last year. Has f/u next month. CAD/History of a fib s/p ablation: Managed by [facility] cardiology. Has follow up appointment with their [...] prevention AF Arrhythmia At risk for stroke [id number] = 4 (HTN, age, CAD, female gender) Benign neoplasm of colon Breast cancer, stage 4 (HCC) 2007 right breast - chemo and radiation Coronary artery disease involving [place] coronary artery of [place]western [place] heart without angina pectoris Diaphragmatic hernia without [...] catheter cryoablation atrial fibrillation PVAI; CCAG Dr. Jackson APPENDECTOMY CARDIAC CATH Left 05/15/2008 preserved LV [...] stent to mid LAD; PTCA to D1; [facility] LAP ADJUSTABLE GASTRIC BAND lapband 2006 released [...] ECP 08/04/2011 C (more content not included)... [facility] 07-04-2023 Miscellaneous Notes ----- Message from Adrinae Suarez APRN.DENTAL SERVICE CHIEF sent at 07/04/2023 3:35 PM EDT ----- If she would like we can restart this for an additional five years. Continue over the counter vitamin D 2000 units and calcium 1200 mg daily and weight bearing exercises. Adriane Suarez APRN.DENTAL SERVICE CHIEF Patient notified of results. She is unsure of when she quit taking it but she said it was a long time ago. Taylor Pryor LPN ----- Message from Adriane Suarez APRN.DENTAL SERVICE CHIEF sent at 07/04/2023 1:22 PM EDT ----- Bone density shows osteoporosis. Patient reported she had taken fosamax for five years and then stopped. Does she know how long it has been since she stopped it. Adriane Suarez APRN.DENTAL SERVICE CHIEF documented in this encounter [facility] 06-28-2023 History of Present illness Narrative Radiology [...] 2023 10:06 AM documented in this encounter [facility] 06-03-2023 Miscellaneous Notes [employer] message sent to pt notifying her of results below from Provider. Stacey Fong Ma ----- Message from Adriane Suarez APRN.CNP sent at 06/03/2023 6:52 AM EDT ----- A1c in great range at 5.8%- down from 7% a year ago- great job. Cholesterol within acceptable ranges. Adriane Suarez APRN.CNP documented in this encounter [facility] 03-14-2023 History of Present illness Narrative Radiology [...] 2023 2:48 PM documented in this encounter [facility] 03-10-2023 History of Present illness Narrative [facility] [place] AUDIOLOGIC EVALUATION REPORT Name: Karen Falk CCF#: [id number] Date of Service: 03/10/2023 Date of : 1950 Age: [age] year old Referred by: Amor Escobar MD Referred for: Evaluation of suspected change in hearing, tinnitus, or balance. Referral documented: In an order in [facility] Patient's major concerns: Reduced hearing in both [...] of hearing loss is non-contributory . [facility] for additional reported history and symptoms. [...] evaluation of middle ear function. CPT code: 32554 RIGHT EAR: Normal ME function. LEFT EAR: [...] conduction and speech recognition testing. CPT code: 87441 RIGHT EAR: Hearing Sensitivity: Mild sloping to [...] on communication function.Karen was advised to call [phone] to request a hearing aid evaluation (HAE) appointment to discuss management options. An appointment with a medical provider should be scheduled prior to HAE to obtain medical clearance for hearing aids. Re-evaluation as medically indicated or if a change in hearing is noted. The patient was counseled regarding the need to continue to monitor hearing and have regular hearing assessments. Halyey Garcia, [facility]-A Clinical Shopper/Vestibular Fellow copied to: Amor Escobar MD GONZALEZ Abbrev- iation Definition Degree of hearing sensitivity dB range WNL within normal limits WNL 0 - 20 SNHL sensorineural hearing loss Mild 20-40 CHL conductive hearing loss Moderate 40-55 MHL mixed hearing loss Moderately-Severe 55-70 WRS word recognition score Severe 70-90 ME middle ear Profound 90 + TM tympanic membrane documented in this encounter [facility] 03-08-2023 History of Present illness Narrative PULM FUNCTION SMARTBLOCK: Provider: Amor Escobar MD Assisting Tech: JONNY Ambriz Spirometry: 1 documented in this encounter [facility] 01-19-2023 History of Present illness Narrative cbc documented in this encounter [facility] 12-06-2022 History of Present illness Narrative ASSESSMENT/PLAN: [...] and treatment options. documented in this encounter [facility] 12-06-2022 Instructions Ronnie Reyna MD - 12/06/2022 1:48 PM EST Start: Systane Complete solution instill 1 drop 3 times daily Both Eyes. Genteal Gel at bedtime Both Eyes. If you have any questions please contact our office at [phone]. After office hours or on the weekend, please call Dr. Reyna on his cell phone at [phone]. documented in this encounter [facility] 11-12-2022 Miscellaneous Notes Left message for patient. The appointment is fine. Navya Yu RN Patient called for an update regarding her message I scheduled her for March 07. If you need to see her close to the infusion date, please let her know. She can be reached at [phone] (home) Patient has been identified by name [...] below.. Patient can be reached at : [phone] (home) documented in this encounter [facility] 09-28-2022 Miscellaneous Notes Received outside labs results (stool sample) from [facility] dated 09/16/2022. Scanned to chart and forwarded to doctor for review. documented in this encounter [facility] 09-23-2022 Miscellaneous Notes Received outside labs from [facility] dated 09/16/2022. Scanned to chart and forwarded to doctor for review. documented in this encounter [facility] 09-21-2022 Miscellaneous Notes Phone call to patient. She did not see the message for the appointment. Patient informed me that they are working her up for C-diff again. Instructed patient to send any testing & notes to Dr. Guzman & to check with Dr. Guzman before receiving the infusion. Patient verbalized understanding. Navya Yu RN documented in this encounter [facility] 06-25-2022 Miscellaneous Notes Medications are still attached [...] months. Please advise/adjust orders as appropriate. Zenia Herrera . Patient is calling to set up treatments ordered by Dr Eliceo Escobar sometime after 04/03. Patient prefers mid morning if possible any day of the week. Please return call to patient. documented in this encounter [facility] 04-23-2022 Miscellaneous Notes Patient returned call and scheduled. Zenia Herrera Left message for patient to return call. When patient calls, please schedule next Rituxan treatment on 10/13/22 (24 wks). Once scheduled, document and close this note. Zenia Herrera Patient called in and would like to schedule her next treatment 6 months from her treatment scheduled from 04/28. Please call to schedule documented in this encounter [facility] 04-01-2022 History of Present illness Narrative Patient arrives ambulatory for receipt of COVID-19 Monoclonal Antibodies for pre-exposure prophylaxis. 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 Evaluation Date: 04/01/2022 Last Visit in Rheumatology: 02/03/2022 (with Amor Escobar) ACTIVE PROBLEM LIST Coronary Artery Disease Involving [place] Coronary Artery of [place] Heart Without Angina Pectoris - 08/20/2021 History [...] - 03/19/2019 At Risk for Stroke Comment: [id number] = 3 (HTN, age, female gender) Anticoagulant Long-Term Use Comment: apixaban (Eliquis); indication: stroke prevention AF Palpitations - 03/14/2019 Nonrheumatic Mitral (Valve) Insufficiency - 03/14/2019 Nonrheumatic Tricuspid (Valve) Insufficiency - 03/14/2019 History of Colonic Polyps - 07/24/2018 Comment: Added automatically from request for surgery [id number] Family History of Colon Cancer in Father - 07/24/2018 Comment: Added automatically from request for surgery [id number] Punctate Keratitis, Bilateral - 08/31/2017 Personal History [...] no joint tenderness or swelling NEURO: motor 5/5 Lab results: WBC Date Value Ref Range [...] 74 - 99 mg/dL Final Comment: The [place] Diabetes Association (ADA) provides guidance for cutoff [...] Standards of Medical Care in Diabetes 2016, [place] Diabetes Association. Diabetes Care. 2016.39(Suppl 1). AST [...] 34 - 123 U/L Final Urine: Specific Victor, Ur Date Value Ref Range Status 02/09/2022 [...] patient. PLAN: - proceed with Rituximab - Evusheld Orders: none Consults: none Monitoring: Continue monthly labs Patient instructed to notify provider of any changes in medical condition. Follow-up: 4 months or before as needed I spent a total of 40 minutes on the date of the service which included preparing to see the patient, [id number] patient care, completing clinical documentation, obtaining and/or reviewing separately obtained history, performing a medically appropriate examination, counseling and educating the patient/family/caregiver, ordering medications, tests, or procedures and independently interpreting results (not separately reported). Amor Guzman MD, MPH ID: Dr. Radha Ware [phone] call with question about timing of restaerting the Bactrim for PJP prophylaxis documented in this encounter [facility] 03-31-2022 Instructions Navya Yu RN - 03/31/2022 [...] serious illness Are taking any medications (prescription, mkel-xms-gsmfdwo, vitamins, or herbal products) How will I [...] of EVUSHELD for ongoing protection. Viruses can casino change attendant time (mutate) and develop into a slightly [...] up-to-date with the latest information by visiting http://www.evusheld.com or by scanning the QR code, below: [...] treatment or prevention of COVID-19 go to https://www.fda.gov/emergency-prep fwleoxeh-rqb-cakdhtgn/mlb-bjoaf-rl jgvgvtjo-gns-lctmcf-framework/rashi glcyl-kib-iqekpllholmgq. It is your choice to receive or [...] to FDA MedWatch at www.fda.gov/medwatch or call 2-522-CWW-2401 or call [employer] at . Additional Information If you have questions, visit the website or call the telephone number provided below. To access the most recent EVUSHELD Fact Sheets, please scan the QR code provided below. Website Telephone number http://wwwTop Prospect How can I learn more about COVID-19? Ask your healthcare provider. Visit https://www.cdc.gov/COVID19 Contact your local or state public health department. What is an Emergency Use Authorization? The [place] FDA has made EVUSHELD (tixagevimab co-packaged with cilgavimab) available under an emergency access mechanism called an Emergency Use Authorization EUA. The EUA is supported by a Cocoa Bean Cleaner of Health and Human Service (HHS) declaration [...] be used under the EUA). Distributed by: [employer], [place], [place] Manufactured by: [employer], [address] [place], [place] [address]U[employer], [facility] [address], [place] [facility] [employer] 2020. All rights reserved. documented in this encounter [facility] 03-31-2022 Miscellaneous Notes Evusheld (tixagevimab/cilgavimab) Eligibility and Patient Discussion [facility] Formulary Restriction Criteria: Outpatient adults and pediatrics 12 years and older and > 40 kg with ALL of the following: [x] COVID test scheduled: Yes Date: 03/31/22, type of test:SelfCheck [x] Patient has not been exposed to a SARS-COV-2 positive individual ([facility] information on COVID exposure link) [x] Patient [...] 2022 3:11 PM documented in this encounter [facility] 02-25-2022 Instructions Zenia Moreno PA-C - 02/25/2022 10:30 AM EDT -- Please let me know if diarrhea returns after finishing second round of Dificid documented in this encounter [facility] 02-25-2022 History of Present illness Narrative CHIEF COMPLAINT: Patient presents with: Transplant fecal: C Diff- Diarrhea, Abd Pain This consult was requested by Radha Ware MD for an opinion regarding transplant fecal. My final recommendations will be communicated to the requesting health care provider by way of the shared medical record for internal providers or letter via the [employer] for external providers. HPI: Karen Falk is a 71 year old [...] C diff AB infusion on 02/09/2022 by [facility]. Appetite is good. Weight is stable. No [...] Abs Lymph 1.00 - 4.00 k/uL 2.24 [place]% % 14.3 Abs [place] <0.87 k/uL 1.46 (H) Eosin% % 4.4 [...] prevention AF Arrhythmia At risk for stroke [id number] = 4 (HTN, age, CAD, female gender) Benign neoplasm of colon Breast cancer, stage 4 (HCC) 2007 right breast - chemo and radiation Coronary artery disease involving [place] coronary artery of [place] heart without angina pectoris Diaphragmatic hernia without [...] catheter cryoablation atrial fibrillation PVAI; CCAG Dr. Jackson APPENDECTOMY CARDIAC CATH Left 05/15/2008 preserved LV [...] stent to mid LAD; PTCA to D1; [facility] LAP ADJUSTABLE GASTRIC BAND lapband 2006 released [...] Employer And Job Title: No employer specified ([employer] for [employer]) Years Of Education Completed: Not specified Marital [...] x2 and monoclonal AB by ID at [place]. Currently on second round of Dificid x14 [...] with more than 50% of the total fwow-dx-gntc time of the visit in counseling / coordination of care. I have confirmed and edited as necessary, the PFSH and ROS obtained by others. 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 Evaluation Date: 02/03/2022 Last Visit in Rheumatology: 09/11/2021 (with Amor Escobar) ACTIVE PROBLEM LIST Coronary Artery Disease Involving [place] Coronary Artery of [place] Heart Without Angina Pectoris - 08/20/2021 History [...] - 03/19/2019 At Risk for Stroke Comment: [id number] = 3 (HTN, age, female gender) Anticoagulant Long-Term Use Comment: apixaban (Eliquis); indication: stroke prevention AF Palpitations - 03/14/2019 Nonrheumatic Mitral (Valve) Insufficiency - 03/14/2019 Nonrheumatic Tricuspid (Valve) Insufficiency - 03/14/2019 History of Colonic Polyps - 07/24/2018 Comment: Added automatically from request for surgery [id number] Family History of Colon Cancer in Father - 07/24/2018 Comment: Added automatically from request for surgery [id number] Punctate Keratitis, Bilateral - 08/31/2017 Personal History [...] 74 - 99 mg/dL Final Comment: The [place] Diabetes Association (ADA) provides guidance for cutoff [...] Standards of Medical Care in Diabetes 2016, [place] Diabetes Association. Diabetes Care. 2016.39(Suppl 1). AST Date Value Ref Range Status 11/16/2021 16 13 - 35 U/L Final ALT Date Value Ref Range Status 11/16/2021 9 7 - 38 U/L Final WSR Date Value Ref Range Status 11/16/2021 52 (H) 0 - 20 mm/hr Final Alkaline Phosphatase Date Value Ref Range Status 11/16/2021 90 34 - 123 U/L Final Urine: Specific Victor, Ur Date Value Ref Range Status 11/15/2021 [...] Follow-up: 4 months Robin Gomez MD PGY-5 [facility] Rheumatology fellow. RHEUMATOLOGY STAFF: I have reviewed the history and physical examination obtained and documented by the fellow and I personally participated in the gonzalez components. I have discussed the case and management of the patient's care with the fellow . [place] note was revised, edited and confirmed. Assessment and plan discussed with patient I spent a total of 40 minutes on the date of the service which included preparing to see the patient, fubx-du-ajlo patient care, completing clinical documentation, obtaining and/or reviewing separately obtained history, performing a medically appropriate examination, counseling and educating the patient/family/caregiver, ordering medications, tests, or procedures and independently interpreting results (not separately reported). Amor Guzman MD, MPH documented in this encounter [facility] 01-29-2022 Miscellaneous Notes Received outside office note from [facility] dated 01/28/2022. Scanned to chart and forwarded to doctor for review. documented in this encounter [facility] 01-28-2022 Miscellaneous Notes Phone call to patient. She has an appointment with ID today. Dr. Ware at [facility]. Asked patient to have Dr office fax [...] to appointment and patient still has CDiff. [phone] PLEASE ADVISE documented in this encounter [facility] 08-21-2021 Note HNO ID: [id number] Author: Radha Jackson MD Service: ? Author Type: Physician Type: Progress Notes Filed: 08/21/2021 6:56 PM Note Text: PRIMARY CARE PHYSICIAN: Eugene Alfonso MD [id number] [address] Patient Care Team: Eugene Alfonso as PCP - General (Gerontology) Adarsh Man as Specialty Yam Curer (Cardiology) Radha Jackson MD as Specialty Yam Curer (Cardiology) Radha Rae V as Referring (Internal Medicine) Amor Escobar MD as Specialty Yam Curer (Rheumatology) CHIEF COMPLAINT: Follow up for arrhythmia HISTORY OF PRESENT ILLNESS: Ms. White is a 71 year old female who presents today for a cardiovascular medicine follow-up visit. History copied from previous notes, edited as needed: Dr. Jackson's office notes 03/19/2019:?Ms. 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 I [...] from Dr. Man's office. Additional History Dr. Jackson?08/31/2019:?Ms.?Deya?p resents for follow-up evaluation. She underwent catheter ablation for atrial fibrillation May 2019. She states that since that procedure she has not been aware of recurrent arrhythmia. She feels well and is very pleased with this (more content not included)... [facility] 02-10-2021 Note HNO ID: [id number] Author: Patience Alejo Service: ? Author Type: Physician Type: Progress Notes Filed: 02/11/2021 1:26 PM Note Text: Consult H AND P Karen Paniagua Deya is a 70 year old female here [...] was taken to the emergency room in [place] in November 2020. 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 Man by her report. She is [...] she gets jj (more content not included)... [facility] 05-15-2019 History of Past i llness Narrative Problem Noted Date Diagnosed Date Resolved Date [...] of this encounter (statuses as of 06/03/2023) [facility]07-[facility]-2019 History of Past illness Narrative* Problem Noted [...] of this encounter (statuses as of 07/08/2023) [facility] History of Past illness Narrative* Problem Noted [...] of this encounter (statuses as of 09/11/2023) [facility] History of Past illness Narrative* Problem Noted [...] of this encounter (statuses as of 09/11/2023) [facility] History of Past illness Narrative* Problem Noted [...] as of this encounter (statuses as of 01/19/2024) [facility] History of Past illness Narrative* Problem Noted [...] of this encounter (statuses as of 01/28/2022) [facility] History of Past illness Narrative* Problem Noted [...] of this encounter (statuses as of 01/29/2022) [facility] History of Past illness Narrative* Problem Noted [...] of this encounter (statuses as of 02/09/2022) [facility] of Past illness Narrative* Problem Noted [...] of this encounter (statuses as of 02/10/2022) [facility] Past illness Narrative* Problem Noted [...] of this encounter (statuses as of 02/12/2022) [facility] Past illness Narrative* Problem Noted [...] of this encounter (statuses as of 02/25/2022) [facility] of Past illness Narrative* Problem Noted [...] of this encounter (statuses as of 02/25/2022) [facility] of Past illness Narrative* Problem Noted [...] of this encounter (statuses as of 03/19/2022) [facility] of Past illness Narrative* Problem Noted [...] of this encounter (statuses as of 04/01/2022) [facility] of Past illness Narrative* Problem Noted [...] of this encounter (statuses as of 04/01/2022) [facility] Past illness Narrative* Problem Noted [...] of this encounter (statuses as of 04/17/2022) [facility] of Past illness Narrative* Problem Noted [...] of this encounter (statuses as of 04/23/2022) [facility] Past illness Narrative* Problem Noted [...] of this encounter (statuses as of 04/28/2022) [facility] Narrative* Problem Noted [...] of this encounter (statuses as of 06/26/2022) [facility] Narrative* Problem Noted [...] of this encounter (statuses as of 09/22/2022) [facility] Narrative* Problem Noted [...] of this encounter (statuses as of 09/23/2022) [facility] Narrative* Problem Noted [...] of this encounter (statuses as of 09/28/2022) [facility] Narrative* Problem Noted [...] of this encounter (statuses as of 10/13/2022) [facility] Narrative* Problem Noted [...] of this encounter (statuses as of 10/13/2022) [facility] Narrative* Problem Noted [...] of this encounter (statuses as of 10/13/2022) [facility] Narrative* Problem Noted [...] of this encounter (statuses as of 11/13/2022) [facility] Narrative* Problem Noted [...] of this encounter (statuses as of 12/06/2022) [facility] Narrative* Problem Noted [...] of this encounter (statuses as of 01/19/2023) [facility] Narrative* Problem Noted [...] of this encounter (statuses as of 03/08/2023) [facility] Narrative* Problem Noted [...] of this encounter (statuses as of 03/11/2023) [facility] Diagnosis 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)- Primary Clostridium difficile colitis Intestinal infection due to clostridium difficile documented [facility] Diagnosis Recurrent Clostridioides difficile infection- Primary Diverticulitis Diverticulitis of colon (without mention of hemorrhage) [facility] Diagnosis Encounter for prophylactic measures, unspecified- Primary [facility] this [facility] Diagnosis Encounter for prophylactic measures, unspecified documented [facility] Diagnosis 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)- Primary [facility] Diagnosis 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)- [facility] 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)- [facility] Diagnosis Punctate keratitis of both eyes- Primary Punctate keratitis Pseudophakia of both eyes Lens replaced by other means Essential hypertension Unspecified essential hypertension Hypercholesteremia Pure hypercholesterolemia [facility] Diagnosis 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)- [facility] 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) Wheezing on expiration [facility] Diagnosis Sensorineural hearing loss (SNHL), bilateral- [facility] Diagnosis 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) Postinflammatory pulmonary fibrosis Wheezing on expiration [facility] Screening for osteoporosis Special screening for osteoporosis Asymptomatic menopause Encounter for screening for osteoporosis Special screening for osteoporosis [facility] Diagnosis History of breast cancer- Primary Personal history of malignant neoplasm of breast Screening mammogram, encounter for [facility] Diagnosis History of breast cancer Personal history of malignant neoplasm of breast Screening mammogram, encounter for [facility] Diagnosis Transient global amnesia- Primary Hypokalemia Hypopotassemia [facility] Diagnosis Transient global amnesia [facility] Diagnosis 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 Tami's granulomatosis [facility] Diagnosis 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 Tami's granulomatosis [facility] Diagnosis Cellulitis of right upper extremity- Primary Cellulitis and abscess of upper arm and forearm Leukocytosis, unspecified type Essential hypertension Unspecified essential hypertension [facility] Diagnosis Weight gain- Primary Abnormal weight gain Essential hypertension Unspecified essential hypertension Coronary artery disease involving [place] coronary artery of [place] heart without angina pectoris S/P ablation of atrial fibrillation Other postprocedural status Pulmonary fibrosis (HCC) 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) Tami's granulomatosis Hypokalemia Hypopotassemia OAB (overactive bladder) Hypertonicity of bladder Encounter for screening for diabetes mellitus Screening for diabetes mellitus [facility] 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)- Primary documented in this encounter [facility] for referral (narrative)* Diagnostic Procedure Only (Routine) - Authorized Specialty Diagnoses / Procedures [facility] To [facility] Diagnoses History of breast cancer Screening mammogram, encounter for Procedures JO ANN SCREENING SCREENING MAMMOGRAPHY BI 2-VIEW BREAST INC CAD Jose Stewart MD [address] [place] [address] [facility] [address] [place] [address] Referral ID Status Reason Start Date Expiration Date Visits Requested Visits Authorized [id number] Authorized Auto-Generat ed Referral 02/27/2024 03/28/2025 1 1 [facility] for referral (narrative)* Outpatient Procedure (Urgent) - Authorized Specialty Diagnoses / Procedures Referred By [facility] Referred To Contact [facility] Diagnoses Transient global amnesia Procedures US CAROTID ARTERIES RANJANA VAS LAB DUPLEX SCAN EXTRACRANIAL ART COMPL BI STUDY Jose Stewart MD [address] [place] [address] [facility] [place] [address] [place] [address] Referral ID Status Reason Start Date Expiration Date Visits Requested Visits Authorized [id number] Authorized Auto-Generat ed Referral 03/06/2024 03/06/2025 1 1 [facility] for referral (narrative)* Outpatient Procedure (Urgent) - Closed Specialty Diagnoses / Procedures [facility]erred To Contact [facility] Diagnoses Transient global amnesia Procedures US CAROTID ARTERIES RANJANA VAS LAB DUPLEX SCAN EXTRACRANIAL ART COMPL BI STUDY Jose Stewart MD [address] [place] [address] [facility] [place] [address] [place] [address] Referral ID Status Reason Start Date Expiration Date V isits Requested Visits Authorized [id number] Closed Auto-Generate d Referral 03/06/2024 03/06/2025 1 1 [facility] for visit Narrative* Diagnostic Procedure Only (Routine) - Closed Specialty Diagnoses / Procedures Referred By Dannie conklin Referred To Contact [facility] Diagnoses History of breast cancer Screening mammogram, encounter for Procedures JO ANN SCREENING SCREENING MAMMOGRAPHY BI 2-VIEW BREAST INC CAD Jose Stewart MD [address] [place] [address] [facility] [address] [place] [address] Referral ID Status Reason Start Date Expiration Date V isits Requested Visits Authorized [id number] Closed Auto-Generate d Referral 02/27/2024 03/28/2025 1 1 [facility] for visit Narrative* Outpatient Procedure (Urgent) - Closed Specialty Diagnoses / Procedures Referred By Dannie conklin [facility] Diagnoses Transient global amnesia Procedures US CAROTID ARTERIES RANJANA VAS LAB DUPLEX SCAN EXTRACRANIAL ART COMPL BI STUDY Jose Stewart MD [address] [place] [address] [facility] [place] [address] [place] [address] Referral ID Status Reason Start Date Expiration Date V isits Requested Visits Authorized [id number] Closed Auto-Generate d Referral 03/06/2024 03/06/2025 1 1 [facility] Summary Purpose Family History No Family History Records FoundNo Family History Records FoundNo Family History Records FoundNo Family History Records FoundNo Family History Records FoundNo Family History Records FoundNo Family History Records Found Advance Directives No Advanced Directives Records FoundDocuments on File Type Date Recorded 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 [employer] 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 Expl anation Advance Directive(s) 05/15/2019 6:56 AM Advance Directive(s) 10/09/2018 12:58 PM Advance Directive(s) 09/07/2018 7:18 AM Documents on File Type Date Recorded Patient [employer] Developer Expl anation Advance Directive(s) 05/15/2019 6:56 AM Advance Directive(s) 10/09/2018 12:58 PM Advance Directive(s) 09/07/2018 7:18 AM Reason for Referral Specialty Diagnoses / Procedures Referred By Dannie conklin Referred To Contact Gastroenterology Diagnoses Recurrent Clostridioides difficile infection Procedures CONSULT TO GASTROENTEROLOGY OFFICE/OUTPATIENT [facility] 60-74 MINUTES Zenia Moreno PA-C [address] [place] [address] Referral ID Status Reason Start Date Expiration Date Visits Requested Visits Authorized [id number] Authorized PCP Requested Referral 02/25/2022 02/25/2023 1 1 Specialty Diagnoses / Procedures Referred By Contileana t Referred To Contact CT IMAGING Diagnoses 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) Wheezing on expiration Procedures CT CHEST WO IVCON DIAGNOSTIC COMPUTED TOMOGRAPHY THORAX W/O CNTRST Amor Stapleton MD [address] [place] [address] [place] [address] Referral ID Status Reason Start Date Expiration Date V isits Requested Visits Authorized [id number] Closed Auto-Generate d Referral 03/07/2023 04/05/2024 1 [...] Change 10/13/2022 12:53 PM EST 320 mL/hr Rate/Dose Change 10/13/2022 11:23 AM EST 200 mL /hr Rate/Dose Change 10/13/2022 10:52 AM EST 160 mL /hr Active Administered Medications - up to 3 [...] ized section and content) DATE CREATED AUTHOR 05/02/2018 [facility] DATE CREATED AUTHOR AUTHOR'S ORGANIZ ATION 02/05/2020 [facility] DATE CREATED AUTHOR AUTHOR'S ORGANIZ ATION 08/22/2021 [facility] DATE CREATED AUTHOR AUTHOR'S ORGANIZ ATION 03/19/2023 [facility] DATE CREATED AUTHOR AUTHOR'S ORGANIZ ATION 04/15/2023 [facility] DATE CREATED AUTHOR AUTHOR'S ORGANIZ ATION 03/16/2024 [facility] DATE CREATED AUTHOR AUTHOR'S ORGANIZ ATION 09/08/2024 [facility] Source Comments (unrecognize d section and content) In the event this informatio n is protected by the Federal Confidentiality of Alcohol and Drug Abuse Patient Records regulations: The Federal rules restrict any use of the information to criminally investigate or prosecute any alcohol or drug abuse patient.[facility] the event this information is protected by the Federal Confidentiality of Alcohol and Drug Abuse Patient Records regulations: The Federal rules restrict any use of the information to criminally investigate or prosecute any alcohol or drug abuse patient.[facility] the event this information is protected by the Federal Confidentiality of Alcohol and Drug Abuse Patient Records regulations: The Federal rules restrict any use of the information to criminally investigate or prosecute any alcohol or drug abuse patient.[facility] the event this information is protected by the Federal Confidentiality of Alcohol and Drug Abuse Patient Records regulations: The Federal rules restrict any use of the information to criminally investigate or prosecute any alcohol or drug abuse patient.[facility] the event this information is protected by the Federal Confidentiality of Alcohol and Drug Abuse Patient Records regulations: The Federal rules restrict any use of the information to criminally investigate or prosecute any alcohol or drug abuse patient.[facility] the event this information is protected by the Federal Confidentiality of Alcohol and Drug Abuse Patient Records regulations: The Federal rules restrict any use of the information to criminally investigate or prosecute any alcohol or drug abuse patient.[facility] Center[facility] the event this information is protected by the Federal Confidentiality of Alcohol and Drug Abuse Patient Records regulations: The Federal rules restrict any use of the information to criminally investigate or prosecute any alcohol or drug abuse patient.[facility] the event this information is protected by the Federal Confidentiality of Alcohol and Drug Abuse Patient Records regulations: The Federal rules restrict any use of the information to criminally investigate or prosecute any alcohol or drug abuse patient.[facility] CenterIn the event this information is protected by the Federal Confidentiality of Alcohol and Drug Abuse Patient Records regulations: The Federal rules restrict any use of the information to criminally investigate or prosecute any alcohol or drug abuse patient.[facility] CenterIn the event this information is protected by the Federal Confidentiality of Alcohol and Drug Abuse Patient Records regulations: The Federal rules restrict any use of the information to criminally investigate or prosecute any alcohol or drug abuse patient.[facility] CenterIn the event this information is protected by the Federal Confidentiality of Alcohol and Drug Abuse Patient Records regulations: The Federal rules restrict any use of the information to criminally investigate or prosecute any alcohol or drug abuse patient.[facility] CenterIn the event this information is protected by the Federal Confidentiality of Alcohol and Drug Abuse Patient Records regulations: The Federal rules restrict any use of the information to criminally investigate or prosecute any alcohol or drug abuse patient.[facility] CenterIn the event this information is protected by the Federal Confidentiality of Alcohol and Drug Abuse Patient Records regulations: The Federal rules restrict any use of the information to criminally investigate or prosecute any alcohol or drug abuse patient.[facility] CenterIn the event this information is protected by the Federal Confidentiality of Alcohol and Drug Abuse Patient Records regulations: The Federal rules restrict any use of the information to criminally investigate or prosecute any alcohol or drug abuse patient.[facility] CenterIn the event this information is protected by the Federal Confidentiality of Alcohol and Drug Abuse Patient Records regulations: The Federal rules restrict any use of the information to criminally investigate or prosecute any alcohol or drug abuse patient.[facility] CenterIn the event this information is protected by the Federal Confidentiality of Alcohol and Drug Abuse Patient Records regulations: The Federal rules restrict any use of the information to criminally investigate or prosecute any alcohol or drug abuse patient.[facility] CenterIn the event this information is protected by the Federal Confidentiality of Alcohol and Drug Abuse Patient Records regulations: The Federal rules restrict any use of the information to criminally investigate or prosecute any alcohol or drug abuse patient.[facility] CenterIn the event this information is protected by the Federal Confidentiality of Alcohol and Drug Abuse Patient Records regulations: The Federal rules restrict any use of the information to criminally investigate or prosecute any alcohol or drug abuse patient.[facility] CenterIn the event this information is protected by the Federal Confidentiality of Alcohol and Drug Abuse Patient Records regulations: The Federal rules restrict any use of the information to criminally investigate or prosecute any alcohol or drug abuse patient.[facility] CenterIn the event this information is protected by the Federal Confidentiality of Alcohol and Drug Abuse Patient Records regulations: The Federal rules restrict any use of the information to criminally investigate or prosecute any alcohol or drug abuse patient.[facility] CenterIn the event this information is protected by the Federal Confidentiality of Alcohol and Drug Abuse Patient Records regulations: The Federal rules restrict any use of the information to criminally investigate or prosecute any alcohol or drug abuse patient.[facility] CenterIn the event this information is protected by the Federal Confidentiality of Alcohol and Drug Abuse Patient Records regulations: The Federal rules restrict any use of the information to criminally investigate or prosecute any alcohol or drug abuse patient.[facility] CenterIn the event this information is protected by the Federal Confidentiality of Alcohol and Drug Abuse Patient Records regulations: The Federal rules restrict any use of the information to criminally investigate or prosecute any alcohol or drug abuse patient.[facility] CenterIn the event this information is protected by the Federal Confidentiality of Alcohol and Drug Abuse Patient Records regulations: The Federal rules restrict any use of the information to criminally investigate or prosecute any alcohol or drug abuse patient.[facility] CenterIn the event this information is protected by the Federal Confidentiality of Alcohol and Drug Abuse Patient Records regulations: The Federal rules restrict any use of the information to criminally investigate or prosecute any alcohol or drug abuse patient.[facility] CenterIn the event this information is protected by the Federal Confidentiality of Alcohol and Drug Abuse Patient Records regulations: The Federal rules restrict any use of the information to criminally investigate or prosecute any alcohol or drug abuse patient.[facility] CenterIn the event this information is protected by the Federal Confidentiality of Alcohol and Drug Abuse Patient Records regulations: The Federal rules restrict any use of the information to criminally investigate or prosecute any alcohol or drug abuse patient.[facility] CenterIn the event this information is protected by the Federal Confidentiality of Alcohol and Drug Abuse Patient Records regulations: The Federal rules restrict any use of the information to criminally investigate or prosecute any alcohol or drug abuse patient.[facility] CenterIn the event this information is protected by the Federal Confidentiality of Alcohol and Drug Abuse Patient Records regulations: The Federal rules restrict any use of the information to criminally investigate or prosecute any alcohol or drug abuse patient.[facility] CenterIn the event this information is protected by the Federal Confidentiality of Alcohol and Drug Abuse Patient Records regulations: The Federal rules restrict any use of the information to criminally investigate or prosecute any alcohol or drug abuse patient.[facility] CenterIn the event this information is protected by the Federal Confidentiality of Alcohol and Drug Abuse Patient Records regulations: The Federal rules restrict any use of the information to criminally investigate or prosecute any alcohol or drug abuse patient.[facility] CenterIn the event this information is protected by the Federal Confidentiality of Alcohol and Drug Abuse Patient Records regulations: The Federal rules restrict any use of the information to criminally investigate or prosecute any alcohol or drug abuse patient.[facility] Center[facility] the event this information is protected by the Federal Confidentiality of Alcohol and Drug Abuse Patient Records regulations: The Federal rules restrict any use of the information to criminally investigate or prosecute any alcohol or drug abuse patient.[facility] CenterIn the event this information is protected by the Federal Confidentiality of Alcohol and Drug Abuse Patient Records regulations: The Federal rules restrict any use of the information to criminally investigate or prosecute any alcohol or drug abuse patient.[facility] CenterIn the event this information is protected by the Federal Confidentiality of Alcohol and Drug Abuse Patient Records regulations: The Federal rules restrict any use of the information to criminally investigate or prosecute any alcohol or drug abuse patient.[facility] CenterIn the event this information is protected by the Federal Confidentiality of Alcohol and Drug Abuse Patient Records regulations: The Federal rules restrict any use of the information to criminally investigate or prosecute any alcohol or drug abuse patient.[facility] CenterIn the event this information is protected by the Federal Confidentiality of Alcohol and Drug Abuse Patient Records regulations: The Federal rules restrict any use of the information to criminally investigate or prosecute any alcohol or drug abuse patient.[facility] CenterIn the event this information is protected by the Federal Confidentiality of Alcohol and Drug Abuse Patient Records regulations: The Federal rules restrict any use of the information to criminally investigate or prosecute any alcohol or drug abuse patient.[facility] CenterIn the event this information is protected by the Federal Confidentiality of Alcohol and Drug Abuse Patient Records regulations: The Federal rules restrict any use of the information to criminally investigate or prosecute any alcohol or drug abuse patient.[facility] CenterIn the event this information is protected by the Federal Confidentiality of Alcohol and Drug Abuse Patient Records regulations: The Federal rules restrict any use of the information to criminally investigate or prosecute any alcohol or drug abuse patient.[facility] CenterIn the event this information is protected by the Federal Confidentiality of Alcohol and Drug Abuse Patient Records regulations: The Federal rules restrict any use of the information to criminally investigate or prosecute any alcohol or drug abuse patient.[facility] CenterIn the event this information is protected by the Federal Confidentiality of Alcohol and Drug Abuse Patient Records regulations: The Federal rules restrict any use of the information to criminally investigate or prosecute any alcohol or drug abuse patient.[facility] CenterIn the event this information is protected by the Federal Confidentiality of Alcohol and Drug Abuse Patient Records regulations: The Federal rules restrict any use of the information to criminally investigate or prosecute any alcohol or drug abuse patient.[facility] CenterIn the event this information is protected by the Federal Confidentiality of Alcohol and Drug Abuse Patient Records regulations: The Federal rules restrict any use of the information to criminally investigate or prosecute any alcohol or drug abuse patient.[facility] CenterIn the event this information is protected by the Federal Confidentiality of Alcohol and Drug Abuse Patient Records regulations: The Federal rules restrict any use of the information to criminally investigate or prosecute any alcohol or drug abuse patient.[facility] CenterIn the event this information is protected by the Federal Confidentiality of Alcohol and Drug Abuse Patient Records regulations: The Federal rules restrict any use of the information to criminally investigate or prosecute any alcohol or drug abuse patient.[facility] Reason for Visit (unrecogniz ed section and content) Reason Comments Returning Patient's Call Reason Comments Received Outside Medical Records Reason Comments Transplant fecal C Diff- Diarrhea, Ab d Pain Reason Comments Orders Evusheld Reason Comments Appointment Reason Comments Outside Labs Received Reason Comments Non-Chemotherapy Treatment Specialty Diagnoses / Procedures Referred By Dannie conklin Referred To Contact Diagnoses Granulomatosis with polyangiitis (HCC) Amor Stapleton MD [address] [place] [address] Rheu Infusion Main [address] [place] [address] Referral ID Status Reason Start Date Expiration Date V isits Requested Visits Authorized [id number] Authorized 04/28/2022 07/27/2022 99 99 Reason Comments [...] EXPIRATORY BETTIE W/WO MXML VOL VNTJ Amor Stapleton MD [address] [place] [address] [facility]piratory [place] [address] [place] [address] Referral ID Status Reason Start Date Expiration Date V isits Requested Visits Authorized [id number] Closed Auto-Generate d Referral 03/07/2023 04/05/2024 1 1 Reason Comments Results Reason Comments Radiology CT Specialty Diagnoses / Procedures Referred By Dannie conklin Referred To Contact CT IMAGING Diagnoses 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) Wheezing on expiration Procedures CT CHEST WO IVCON DIAGNOSTIC COMPUTED TOMOGRAPHY THORAX W/O CNTRST Amor Stapleton MD [address] [place] [address] Ct Imaging [facility] Referral ID Status Reason Start Date Expiration Date V isits Requested Visits Authorized [id number] Closed Auto-Generate d Referral 03/07/2023 04/05/2024 1 1 Reason Comments medication issue Reason Comments mammogram orders Reason Comments Hospital F/U Reason Comments Patient Question Appointment Reason Comments Chemotherapy Treatment Specialty Diagnoses / Procedures Referred By Contac t Referred To Contact Diagnoses 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 Patient concerned with weight gain requesting something to assist with weight loss or appetite control. Reason Onset Date Comments Transition Of Care 04/17/2024 Reason Comments Follow Up 6 month Reason Comments Patient Update Patient Question Care Teams (unrecognized sec tion and content) Sergeant At Arms Relationship Specialty Start Date End Date Eugene Alfonso Chi [address] [place] [address] PCP - General Gerontology 01/26/21 Adarsh Man [address] [place], [place] [id number] Specialty Yam Curer Cardiology 03/14/19 Radha Jackson MD [address] [place] [address] Specialty Yam Curer Cardiology 08/27/19 Radha Rae V [address] [place] [address] Referring Internal Medicine 07/15/21 Amor Stapleton MD [address] [place] [address] Specialty Yam Curer Rheumatology 08/21/21 Sergeant At Arms Relationship Specialty Start Date End Date Eugene Alfonso Chi [address] [place] [address] PCP - General Gerontology 01/26/21 Magda, Adarsh S [address] [place] [address] Specialty Yam Curer Cardiology 03/14/19 Radha Jackson MD [address] [place] [phone] (Fax) Specialty Yam Curer Cardiology 08/27/19 Radha Rae V [address] [place] [phone] Referring Internal Medicine 07/15/21 Amor Stapleton MD [address] [place] [address] Specialty Yam Curer Rheumatology 08/21/21 Sergeant At Arms Relationship Specialty Start Date End Date Eugene Alfonso Chi [address] [place] [address] PCP - General Gerontology 01/26/21 Magda, [place] S [address] [place] [address] Specialty Yam Curer Cardiology 03/14/19 Radha Jackson MD [address] [place] [phone] Specialty Yam Curer Cardiology 08/27/19 Radha Rae V [address] [place] [phone] Referring Internal Medicine 07/15/21 Amor Stapleton MD [address] [place], [place] [id number] Specialty Yam Curer Rheumatology 08/21/21 Sergeant At Arms Relationship Specialty Start Date End Date Eugene Alfonso Chi [address] [place], [place] [address] PCP - General Gerontology 01/26/21 Magda, [place] S [address] [place] [address] Specialty Yam Curer Cardiology 03/14/19 Radha Jackson MD [address] [place] [address] Specialty Yam Curer Cardiology 08/27/19 Radha Rae V [address] [place] [phone] Referring Internal Medicine 07/15/21 Amor Stapleton MD [address] [place] [address] Specialty Yam Curer Rheumatology 08/21/21 Sergeant At Arms Relationship Specialty Start Date End Date Eugene Alfonso Chi [address] [place] [address] PCP - General Gerontology 01/26/21 Magda, Adarsh S [address] [place] [address] Specialty Yam Curer Cardiology 03/14/19 Radha Jackson MD [address] [place] [address] Specialty Yam Curer Cardiology 08/27/19 Radha Rae V [address] [place] [address] Referring Internal Medicine 07/15/21 Amor Stapleton MD [address] [place], [place] [id number] Specialty Yam Curer Rheumatology 08/21/21 Sergeant At Arms Relationship Specialty Start Date End Date Eugene Alfonso Chi [address] [place] [address] PCP - General Gerontology 01/26/21 Magda, [place] S [address] [place] [address] Specialty Yam Curer Cardiology 03/14/19 Radha Jackson MD [address] [place] [phone] (Fax) Specialty Yam Curer Cardiology 08/27/19 Radha Rae V [address] [place] [phone] Referring Internal Medicine 07/15/21 Amor Stapleton MD [address] [place] [address] Specialty Yam Curer Rheumatology 08/21/21 Sergeant At Arms Relationship Specialty Start Date End Date Eugene Alfonso Chi [address] [place] [address] PCP - General Gerontology 01/26/21 Magda, Adarsh S [address] [place] [address] Specialty Yam Curer Cardiology 03/14/19 Radha Jackson MD [address] [place] [address] (Fax) Specialty Yam Curer Cardiology 08/27/19 Radha Rae V [address] [place] [phone] Referring Internal Medicine 07/15/21 Amor Stapleton MD [address] [place] [address] Specialty Yam Curer Rheumatology 08/21/21 Sergeant At Arms Relationship Specialty Start Date End Date Kaden, Eugene Chi [address] [place] [address] PCP - General Gerontology 01/26/21 Magda, [place] S [address] [place] [address] Specialty Yam Curer Cardiology 03/14/19 Radha Jackson MD [address] [place] [phone] Specialty Yam Curer Cardiology 08/27/19 Radha Rae V [address] [place] [phone] Referring Internal Medicine 07/15/21 Amor Stalpeton MD [address] [place] [address] Specialty Yam Curer Rheumatology 08/21/21 Sergeant At Arms Relationship Specialty Start Date End Date Kaden, Eugene Chi [address] [place] [address] PCP - General Gerontology 01/26/21 Magda, [place] S [address] [place] [address] Specialty Yam Curer Cardiology 03/14/19 Radha Jackson MD [address] [place] [address] Specialty Yam Curer Cardiology 08/27/19 Radha Rae V [address] [place] [address] Referring Internal Medicine 07/15/21 Amor Stapleton MD [address] [place] [address] Specialty Yam Curer Rheumatology 08/21/21 Sergeant At Arms Relationship Specialty Start Date End Date Kaden, Eugene Chi [address] [place] [address] PCP - General Gerontology 01/26/21 Magda, Adarsh S [address] [place] [address] Specialty Yam Curer Cardiology 03/14/19 Radha Jackson MD [address] [facility] [address] [place] [address] Specialty Yam Curer Cardiology 08/27/19 Radha Rae V [address] [place] [address] Referring Internal Medicine 07/15/21 Amor Stapleton MD [address] [place] [address] Specialty Yam Curer Rheumatology 08/21/21 Sergeant At Arms Relationship Specialty Start Date End Date Kaden, Eugene Chi [address] [place] [address] PCP - General Gerontology 01/26/21 Magda, Adarsh S [address] [place] [address] Specialty Yam Curer Cardiology 03/14/19 Radha Jackson MD [address] [place] [address] (Fax) Specialty Yam Curer Cardiology 08/27/19 Radha Rae V [address] [place] [address] Referring Internal Medicine 07/15/21 Amor Stapleton MD [address] [place] [address] Specialty Yam Curer Rheumatology 08/21/21 Sergeant At Arms Relationship Specialty Start Date End Date Eugene Alfonso Chi [address] [place] [address] PCP - General Gerontology 01/26/21 Magda, Adarsh S [address] [place] [address] Specialty Yam Curer Cardiology 03/14/19 Radha Jackson MD [address] [place] [address] (Fax) Specialty Yam Curer Cardiology 08/27/19 Radha Rae V [address] [place] [address] Referring Internal Medicine 07/15/21 Amor Stapleton MD [address] [place] [address] Specialty Yam Curer Rheumatology 08/21/21 Sergeant At Arms Relationship Specialty Start Date End Date Eugene Alfonso Chi [address] [place] [address] PCP - General Gerontology 01/26/21 Magda, Adarsh S [address] [place] [address] Specialty Yam Curer Cardiology 03/14/19 Radha Jackson MD [address] [place] [address] (Fax) Specialty Yam Curer Cardiology 08/27/19 Radha Rae V [address] [facility] [place] [address] Referring Internal Medicine 07/15/21 Amor Stapleton MD [address] [place] [address] Specialty Yam Curer Rheumatology 08/21/21 Sergeant At Arms Relationship Specialty Start Date End Date Eugene Alfonso Chi [address] [place] [address] PCP - General Gerontology 01/26/21 Adarsh Man [address] [place] [address] Specialty Yam Curer Cardiology 03/14/19 Radha Jackson MD [address] [place] [address] (Fax) Specialty Yam Curer Cardiology 08/27/19 Radha Rae V [address] [place] [address] Referring Internal Medicine 07/15/21 Amor Stapleton MD [address] [place] [address] Specialty Yam Curer Rheumatology 08/21/21 Sergeant At Arms Relationship Specialty Start Date End Date Jose Stewart MD [address] [place] [address] PCP - General Family Medicine 05/31/23 Adarsh Man [address] [place] [address] Specialty Yam Curer Cardiology 03/14/19 Radha Jackson MD [address] [place] [address] Specialty Yam Curer Cardiology 08/27/19 Radha Rae V [address] [place] [address] Referring Internal Medicine 07/15/21 Amor Stapleton MD [address] [facility] [address] [place], [place] [address] Specialty Yam Curer Rheumatology 08/21/21 Sergeant At Arms Relationship Specialty Start Date End Date Kaden Eugene Donovan [address] [place], [place] [address] PCP - General Gerontology 01/26/21 05/30/23 Adarsh Man MD [address] [place] [address] Specialty Yam Curer Cardiology 03/14/19 Radha Jackson MD [address] [place] [address] Specialty Yam Curer Cardiology 08/27/19 Radha Rae V [address] [place] [phone] Referring Internal Medicine 07/15/21 Amor Stapleton MD [address] [place] [address] Specialty Yam Curer Rheumatology 08/21/21 Sergeant At Arms Relationship Specialty Start Date End Date Jose Stewart MD [address] [place] [address] PCP - General Family Medicine 05/31/23 Adarsh Man MD [address] [address] Specialty Yam Curer Cardiology 03/14/19 Radha Jackson MD [address] [place] [address] Specialty Yam Curer Cardiology 08/27/19 Radha Rae V [address] [place] [address] Referring Internal Medicine 07/15/21 Amor Stapleton MD [address] [facility] [place] [address] Specialty Yam Curer Rheumatology 08/21/21 Sergeant At Arms Relationship Specialty Start Date End Date Jose Stewart MD [address] [place] [address] PCP - General Family Medicine 05/31/23 Adarsh Man MD [address] [address] Specialty Yam Curer Cardiology 03/14/19 Radha Jackson MD [address] [place] [address] Specialty Yam Curer Cardiology 08/27/19 Radha Rae V [address] [place] [address] Referring Internal Medicine 07/15/21 Amor Stapleton MD [address] [place] [address] Specialty Yam Curer Rheumatology 08/21/21 Sergeant At Arms Relationship Specialty Start Date End Date Jose Stewart MD [address] [place], [place] [address] PCP - General Family Medicine 05/31/23 Adarsh Man MD [address] [id number] Specialty Yam Curer Cardiology 03/14/19 Radha Jackson MD [address] [facility] [address] [place] [address] Specialty Yam Curer Cardiology 08/27/19 Radha Rae V [address] [place] [address] Referring Internal Medicine 07/15/21 Amor Stapleton MD [address] [place] [address] Specialty Yam Curer Rheumatology 08/21/21 Sergeant At Arms Relationship Specialty Start Date End Date Jose Stewart MD [address] [place] [address] PCP - General Family Medicine 05/31/23 Adarsh Man MD [address] [place] [address] Specialty Yam Curer Cardiology 03/14/19 Radha Jackson MD [address] [place] [address] Specialty Yam Curer Cardiology 08/27/19 Radha Rae V [address] [place] [address] Referring Internal Medicine 07/15/21 Amor Stapleton MD [address] [place], [place] [address] Specialty Yam Curer Rheumatology 08/21/21 Sergeant At Arms Relationship Specialty Start Date End Date Jose Stewart MD [address] [place] [address] PCP - General Family Medicine 05/31/23 Adarsh Man MD [address] [place] [address] Specialty Yam Curer Cardiology 03/14/19 Radha Jackson MD [address] [place] [phone] Specialty Yam Curer Cardiology 08/27/19 Radha Rae V [address] [place] [address] Referring Internal Medicine 07/15/21 Amor Stapleton MD [address] [place] [address] Specialty Yam Curer Rheumatology 08/21/21 Sergeant At Arms Relationship Specialty Start Date End Date Jose Stewart MD [address] [place] [address] PCP - General Family Medicine 05/31/23 Adarsh Man MD [address] [address] Specialty Yam Curer Cardiology 03/14/19 Radha Jackson MD [address] [place] [phone] Specialty Yam Curer Cardiology 08/27/19 Radha Rae V [address] [place] [address] Referring Internal Medicine 07/15/21 Amor Stapleton MD [address] [place] [address] Specialty Yam Curer Rheumatology 08/21/21 Sergeant At Arms Relationship Specialty Start Date End Date Jose Stewart MD [address] [place] [address] PCP - General Family Medicine 05/31/23 Adarsh Man MD [address] [address] Specialty Yam Curer Cardiology 03/14/19 Radha Jackson MD [address] [place] [address] Specialty Yam Curer Cardiology 08/27/19 Radha Rae V [address] [place] [address] Referring Internal Medicine 07/15/21 Amor Stapleton MD [address] [place] [address] Specialty Yam Curer Rheumatology 08/21/21 Sergeant At Arms Relationship Specialty Start Date End Date Jose Stewart MD [address] [place], [place] [address] PCP - General Family Medicine 05/31/23 Adarsh Man MD [address] [id number] Specialty Yam Curer Cardiology 03/14/19 Radha Jackson MD [address] [facility] [address] [place] [address] Specialty Yam Curer Cardiology 08/27/19 Radha Rae V [address] [place] [address] Referring Internal Medicine 07/15/21 Amor Stapleton MD [address] [place] [address] Specialty Yam Curer Rheumatology 08/21/21 Sergeant At Arms Relationship Specialty Start Date End Date Jose Stewart MD [address] [place] [address] PCP - General Family Medicine 05/31/23 Adarsh Man MD [address] [place] [address] Specialty Yam Curer Cardiology 03/14/19 Radha Jackson MD [address] [place] [address] Specialty Yam Curer Cardiology 08/27/19 Radha Rae V [address] [place] [address] Referring Internal Medicine 07/15/21 Amor Stapleton MD [address] [place] [address] Specialty Yam Curer Rheumatology 08/21/21 Sergeant At Arms Relationship Specialty Start Date End Date Jose Stewart MD [address] [place] [address] PCP - General Family Medicine 05/31/23 Adarsh Man MD [address] [address] Specialty Yam Curer Cardiology 03/14/19 Radha Jackson MD [address] [place] [address] Specialty Yam Curer Cardiology 08/27/19 Radha Rae V [address] [address] Referring Internal Medicine 07/15/21 Amor Stapleton MD [address] [place] [address] Specialty Yam Curer Rheumatology 08/21/21 Sergeant At Arms Relationship Specialty Start Date End Date Jose Stewart MD [address] [facility] [place] [address] PCP - General Family Medicine 05/31/23 Adarsh Man MD [address] [place] [address] Specialty Yam Curer Cardiology 03/14/19 Radha Jcakson MD [address] [place] [phone] (Fax) Specialty Yam Curer Cardiology 08/27/19 Radha Rae V [address] [facility] [place] [address] Referring Internal Medicine 07/15/21 Amor Stapleton MD [address] [place] [address] Specialty Yam Curer Rheumatology 08/21/21 Sergeant At Arms Relationship Specialty Start Date End Date Jose Stewart MD [address] [place] [address] PCP - General Family Medicine 05/31/23 Adarsh Man MD [address] [place] [address] Specialty Yam Curer Cardiology 03/14/19 Radha Jackson MD [address] [place] [address] (Fax) Specialty Yam Curer Cardiology 08/27/19 Radha Rae V [address] [facility] [place] [address] Referring Internal Medicine 07/15/21 Amor Stapleton MD [address] [facility] [place], [place] [address] Specialty Yam Curer Rheumatology 08/21/21 FOR RECORDS PERTAINING TO PATIENTS [...] BE BASED ON THE PRIMARY CLINICAL RECORDS. [employer] provides no warranty or guarantee of the accuracy or completeness of information in this document.
[2024-09-10 01:10] VITALS: BP 145/122; PULSE 98; RESP 16; O2SAT 91
--- NOTE | 2024-09-10 01:28 | EX.ED.DYSGE1 ---
HPI History of Present Illness Chief Complaint: Unresponsive Informant: EMS and SNF Narrative Narrative: Patient is a 74-year-old female with past medical history of paroxysmal atrial fibrillation hyperlipidemia debility recurrent diarrhea and recent admission for acute GI bleed secondary to hemorrhoid. She was transferred to the assisted recently after being discharged from the hospital secondary to the recent GI bleed. half-way states that the patient complained of lower abdominal cramping/pain this evening and that she asked to be sat in a chair. They state they helped her into this position and as they were doing so she passed out. According to EMS assisted states that the patient was minimally responsive for approximately 20 minutes and as she was not waking up they were called. EMS states when they arrived the patient appeared pale and ashen her GCS was 5 and that she was tachycardic and her blood pressure however was stable at approximately 116/70. However they report that the assisted had a much lower blood pressure of approximately 60/40. As it is unknown what led to the syncopal event and persistent altered mental status she was brought to the hospital for further evaluation. Based on the patient's altered mental status/GCS of 5 she cannot provide any further history [facility] Medical History Myocardial infarct TIA (transient ischemic attack) Wears hearing aid Loss of hearing Wears glasses Post-menopausal Cancer Uses wheelchair Walker as ambulation aid Bladder disease Easy bruising Back pain History of diverticulitis Non-smoker Hoarseness Shortness of breath on exertion History of edema History of echocardiogram History of stress test Cardiology follow-up encounter History of atrial fibrillation C. difficile colitis Anxiety Depression Arthritis On home oxygen therapy Colitis Diverticulitis Tami's granulomatosis History of ST elevation myocardial infarction (STEMI) (11/25/20) Atherosclerotic heart disease of [place] coronary artery without angina pectoris History of breast cancer Neuropathy Chronic rhinitis Vitamin deficiency Tear film insufficiency Osteopenia Mixed hyperlipidemia Essential (primary) hypertension Breast cancer Paroxysmal atrial fibrillation Home Medications ?Medication ?Instructions ?Recorded ?Last Taken ?Type carboxymethylcellulose sodium 0.5 1 drp ophthalmic (eye) 4-8XD PRN 08/31/18 01/18/22 History % eye drops (Refresh Tears) Dry Eyes aspirin 81 mg tablet,delayed 81 mg PO DAILY 01/19/22 08/16/24 History release (Adult Low Dose Aspirin) potassium chloride 10 mEq 10 meq PO BID SUPPLEMENT 01/19/22 08/16/24 History capsule,extended release handicap placcard #1 ea 12/15/22 Unknown Rx cholecalciferol (vitamin D3) 25 50 mcg PO DAILY 03/23/23 08/16/24 History mcg (1,000 unit) capsule (Vitamin D3) metoprolol tartrate 25 mg tablet 12.5 mg (1/2 x 25 mg) PO BID #90 02/02/24 08/16/24 Rx tabs atorvastatin 10 mg tablet (Lipitor) 10 mg PO QHS cholesterol #90 tabs 05/28/24 08/16/24 Rx vibegron 75 mg tablet (Gemtesa) 75 mg PO QDAY 08/07/24 08/16/24 History acetaminophen 325 mg tablet 650 mg (2 x 325 mg) PO Q6H PRN PRN 09/04/24 Unknown Rx Pain 1-10 Or Fever >100.7 #0 tabs budesonide 3 mg 9 mg (3 x 3 mg) PO DAILY #0 ea 09/04/24 Unknown Rx capsule,delayed,extended release enoxaparin 40 mg/0.4 mL 40 mg (0.4 mL) subcut DAILY #0 mL 09/04/24 Unknown Rx subcutaneous syringe food supplemt, lactose-reduced 118 ml PO TIDCM #0 mL 09/04/24 Unknown Rx (Ensure Compact oral liquid) [id number] 3 cap PO TIDCM #0 caps 09/04/24 Unknown Rx 24,000-76,000-120,000 unit capsule,delayed rel (Creon) menthol 0.44 %-zinc oxide 20.6 % 1 applic topical BID PRN DIAPER 09/04/24 Unknown Rx topical ointment (Calmoseptine) RASH #0 grams nystatin 100,000 unit/gram topical 1 applic topical BID #0 grams 09/04/24 Unknown Rx powder (Nyamyc) prednisone 20 mg tablet 40 mg (2 x 20 mg) PO BREAKFAST #0 09/04/24 Unknown Rx tabs prochlorperazine maleate 10 mg 10 mg PO Q6H PRN nausea and 09/04/24 Unknown Rx tablet (Compazine) vomiting #1 TAB Allergy/AdvReac Type Severity Reaction Status Date / Time No Known Allergies Allergy Verified 09/10/24 00:27 Family History Father Heart disease Colon cancer Mother Breast cancer CVA (cerebral vascular accident) Grandmother CVA (cerebral vascular accident) Brother Diabetes Surgical History History of appendectomy Personal history of gastric banding Hx of abdominoplasty Hx of breast reduction, elective History of radiofrequency ablation procedure for cardiac arrhythmia (05/15/19) History of coronary artery stent placement (11/25/20) History of cataract surgery H/O mastectomy History of tonsillectomy History of appendectomy History of adjustable gastric banding History of left heart catheterization (05/15/08) Social History household members: spouse Smoking Status: Never smoker alcohol intake: never caffeine: No what type of physical activity do you participate in: swimming and aerobics frequency: 3-4 times per week ROS ROS ED ROS Narrative Unable to obtain review of systems based on patient's altered mental status Review of Systems ROS Unobtainable: due to mental status EXAM Physical Exam Const Vital Signs: 09/10/24 00:26 09/10/24 00:26 09/10/24 00:40 Temperature 98.6 F Temperature Source Oral Pulse Rate 101 H 100 122 H Pulse Rate [1] Respiratory Rate 26 H 26 H 18 Respiratory Rate [1] Respiratory Effort Respiratory Depth Respiratory Pattern Blood Pressure 68/40 L 55/35 L Blood Pressure [1] Blood Pressure Mean 49 41 Pulse Ox 81 83 92 Oxygen Delivery Method Non-Rebreather Non-Rebreather Non-Rebreather Oxygen Flow Rate (L/min) 15 15 15 09/10/24 00:44 09/10/24 00:52 09/10/24 01:10 Temperature Temperature Source Pulse Rate 98 Pulse Rate [1] Respiratory Rate 16 Respiratory Rate [1] Respiratory Effort Normal Non-Labored Normal Non-Labored Respiratory Depth Normal Respiratory Pattern Tachypnea Normal Blood Pressure 145/122 H Blood Pressure [1] Blood Pressure Mean 129 Pulse Ox 91 Oxygen Delivery Method Nasal Cannula Nasal Cannula Oxygen Flow Rate (L/min) 4 4 09/10/24 01:13 09/10/24 01:39 Temperature Temperature Source Pulse Rate Pulse Rate [1] 57 L Respiratory Rate Respiratory Rate [1] 12 Respiratory Effort Agonal Respiratory Depth Respiratory Pattern Blood Pressure Blood Pressure [1] 60/50 L Blood Pressure Mean Pulse Ox Oxygen Delivery Method Oxygen Flow Rate (L/min) Positive well nourished, well developed and obese Constitutional Narrative: Patient appears pale and cyanotic General Appearance ED: well developed, cyanotic and pallor; Negative for diaphoretic Nutritional Appearance: obese HEENT Reports dry mucous membranes HEENT Narrative: No tongue or lip swelling noted No signs of infection noted in the posterior pharynx No active bleeding noted. Mouth ED: Yes dry mucous membranes Mouth: dry mucous membranes Eyes Eyes Narrative: Pupils are dilated and minimally responsive to light General Eye ED: Yes pale conjunctiva; Negative for scleral icterus Neck Neck Narrative: No crepitance palpated Chest Wall palpation of chest normal Chest Narrative: No bony deformity or crepitance noted Resp Resp Narrative: Patient is tachypneic and breath sounds are diminished throughout but overall clear to auscultation Cardio regular rhythm Rate: tachycardic and other Other Details: Tachycardic rate with regular rhythm Based on her hypotension is difficult to palpate a radial or dorsalis pedis pulse GI non-distended and no masses GI Narrative: Abdomen is soft and nondistended with hypoactive bowel sounds No pulsatile mass noted No rigidity present Auscultation: hypoactive bowel sounds Palpation: soft Extremity Extremity Narrative: No obvious bony deformity or joint effusion Extremities are cool and pale however secondary to her hypotension Neuro Neuro Narrative: Patient is obtunded with GCS of 5. She will not open her eyes. She moans in response to pain but does not localize. There is no movement of the extremities and no decorticate or decerebrate posturing given her score of 5 The pupils are dilated and minimally responsive to light. Patient does not have a gag reflex. There is no obvious facial droop. Further neurologic function cannot be assessed as patient is unresponsive and cannot follow commands Skin Skin Narrative: Skin is pale in color and cool to touch. Capillary refill is over 3 seconds. There is no obvious skin wound noted. Patient does have areas of ecchymosis to her arms consistent with recent hospital stay and IV placement No obvious findings of infection General Skin Exam: pallor MDM MDM MDM Narrative Medical decision making narrative: Patient arrived to the ER hypotensive with altered mental status and no gag reflex and a GCS of 15. Based on this presentation she would require intubation for airway stabilization. However chart review was performed prior to her arrival and at her last hospital stay which was roughly 10 days ago it confirms assisted statement that she is a DNR Comfort Care arrest no intubation. Therefore I will abide by her wishes and should be kept on nasal cannula oxygen but no intubation will be provided. Based on the patient's recent history of GI bleed and the fact she complained of abdominal pain prior to going unresponsive and she has been hypotensive and tachycardic she most likely has a perforated intestine or acute blood loss anemia or aortic rupture leading to her symptoms. She will require IV fluids and IV vasopressors as well as potential blood transfusion. Peripheral IVs cannot be established however and therefore I placed a central line as documented below. After placing the central line she was given atropine and epinephrine. However despite this medication her heart rate went from tachycardic to normal to bradycardic and her blood pressure continued to trend downward. An ultrasound was placed over top the patient's heart and there was no cardiac activity noted which correlates with no electrical activity noted on the monitoring manager. Therefore at this time as the patient did not respond to push dose epinephrine and atropine and she is now pulseless I will abide by her wishes and not perform any type of resuscitation as she is a DNR Comfort Care arrest. Therefore the patient was pronounced at 122 this morning. Family was notified as well as the family doctor and will sign her certificate. The patient had a right femoral vein central line placed. The patient was prepped in sterile fashion and the site was cleaned with chlorhexidine. The ultrasound was used to visualize the femoral vein. The vein was cannulated in 1 attempt and there was return of dark red nonpulsatile blood. The guidewire threaded without difficulty. The central line was placed and each [place] and flushed without difficulty either. Patient tolerated the procedure well without complication History & Record Review Discussion w/independent historian: EMS personnel ABG Data ABG results: ABG 09/10/24 00:50 Specimen Type ART Sample Site R Fem pH 6.98 L* Bicarbonate Actual 6.7 L Total CO2 8 Base Excess -25 L O2 Saturation 98 O2 % 15.0 ABG pCO2 28.1 L ABG pO2 149 H Gerald Test N/A O2 Delivery Device NRB Vent Mode Not entered Crit Call To/Read Back Yes Blood Gas Notified Whom Del Blood Gas Notified Time 00:51:41 Discharge Plan Triage Chief Complaint: Unresponsive ED Provider: Ty Mathis Dx/Rx/DC Orders Clinical Impression: Cardiopulmonary arrest, Essential (primary) hypertension, Paroxysmal atrial fibrillation, Recurrent gastrointestinal hemorrhage Prescriptions: No Action Refresh Tears 0.5 % drops 1 drp OPHTHALMIC 4-8XD PRN (Reason: Dry Eyes) (DME) handicap placcard See Rx Instructions .Route .MEDSUPPLY Qty: 1 0RF Rx Instructions: Dx: Debility, Restrictive lung disease exp:5 years Gemtesa 75 mg tablet 75 mg PO QDAY potassium chloride 10 mEq capsule, extended release 10 meq PO BID aspirin [Adult Low Dose Aspirin] 81 mg tablet,delayed release (DR/EC) 81 mg PO DAILY cholecalciferol (vitamin D3) [Vitamin D3] 25 mcg (1,000 unit) Capsule 50 mcg PO DAILY acetaminophen 325 mg Tablet 650 mg PO Q6H PRN PRN (Reason: Pain 1-10 Or Fever >100.7) Qty: 0 0RF prednisone 20 mg Tablet 40 mg PO BREAKFAST Qty: 0 0RF Rx Instructions: Start on 09/05/2024 and administer for 14 days and then stop medication nystatin [Nyamyc] 100,000 unit/gram Powder 1 applic topical BID Qty: 0 0RF Protocol: *Topical Application Instructions APPLICATION INSTRUCTIONS: To affected areas budesonide 3 mg Capsule,Delayed,Extend.Release 9 mg PO DAILY Qty: 0 0RF Ensure Compact Liquid 118 ml PO TIDCM Qty: 0 0RF enoxaparin 40 mg/0.4 mL Syringe 40 mg subcut DAILY Qty: 0 0RF Creon 24,000-76,000 -120,000 unit Capsule,Delayed Release(Dr/Ec) 3 cap PO TIDCM Qty: 0 0RF menthol-zinc oxide [Calmoseptine] 0.44-20.6 % Ointment 1 applic topical BID PRN (Reason: DIAPER RASH) Qty: 0 0RF Protocol: *Topical Application Instructions APPLICATION INSTRUCTIONS: dima rectal area prochlorperazine maleate [Compazine] 10 mg tablet 10 mg PO Q6H PRN (Reason: nausea and vomiting) Qty: 1 0RF metoprolol tartrate 25 mg tablet 12.5 mg PO BID Qty: 90 3RF atorvastatin [Lipitor] 10 mg tablet 10 mg PO QHS Qty: 90 3RF Primary Care Provider: Rito Stewart Referrals: Rito Stewart MD [Primary Care Provider] - Print Language: [place] Disposition Disposition: Discharge Date/Time: 09/10/24 04:04 Date/Time: 09/10/24 01:22
--- NOTE | 2024-09-10 01:28 | ED.RN ---
TIME OF CALLED BY Tracie SHERMAN DO. AT 0122.
[2024-09-10 01:39] VITALS: BP 60/50; PULSE 57; RESP 12; O2SAT 81
--- NOTE | 2024-09-10 02:29 | ED.RN ---
0200 family left,pt's is unsure of pre-paid ,will call when information available aware pt may move to the morgue.
[2024-09-10 07:40] LABS: Bedside Glucose 379 mg/dL (74-106)
== END 2024-09-10 04:04 ==
PROVIDERS: Emergency Provider Emergency Medicine; PCP Family Medicine; Visit Provider Emergency Medicine
DX: I46.9 Cardiac arrest, cause unspecified (principal); I48.0 Paroxysmal atrial fibrillation; R41.82 Altered mental status, unspecified; E78.2 Mixed hyperlipidemia; I25.10 Atherosclerotic heart disease of native coronary artery without angina pectoris; I10 Essential (primary) hypertension; K92.2 Gastrointestinal hemorrhage, unspecified; I25.2 Old myocardial infarction; Z86.73 Personal history of transient ischemic attack (TIA), and cerebral infarction without residual deficits; Z85.3 Personal history of malignant neoplasm of breast; Z79.82 Long term (current) use of aspirin; Z79.899 Other long term (current) drug therapy; Z90.49 Acquired absence of other specified parts of digestive tract; Z95.5 Presence of coronary angioplasty implant and graft; Z90.10 Acquired absence of unspecified breast and nipple
CPT/HCPCS: 36556; 36600; 82803; 82962; 99285; A4216; C1751

== ENCOUNTER → 2024-09-10 23:59 | Outpatient (RCR) | payer MEDICARE, SELFPAY ==
[2020-12-05 14:34] VITALS: BMI 31.7
[2021-12-29 15:57] LABS: Absolute Lymphocyte Count 1.56 X10^3/uL (0.83-4.51); Absolute Neutrophil Count 10.6 X10^3/uL (2.0-7.7); Basophil# 0.05 X10^3/uL; Basophil% 0.3 % (0-1); Eosinophil# 0.24 X10^3/uL; Eosinophils% 1.7 % (0-5); Hematocrit 34.9 % (37-47); Hemoglobin 11.4 g/dL (12.0-15.0); Lymphocyte # 1.56 X10^3/ul (0.83-4.51); Lymphocyte % 10.9 % (19-41); Mean Corp Hgb Conc 32.7 g/dL (32-36); Mean Corpuscular Hgb 28.1 pg (27.0-32.0); Mean Corpuscular Volume 86.2 fL (81-99); Mean Platelet Vol. 11.4 fl (6.2-12.0); Monocyte# 1.71 X10^3/uL; NRBC Flagged by Analyzer 0 % (0-5); Neutrophil # 10.61 X10^3/uL (2.7-7.7); Neutrophil % 74.3 % (47-70); POSITIVE DIFFERENTIAL YES; Platelet Count 484 K/mm3 (150-450); RBC Distribution Width CV 16.1 % (11.6-14.6); RBC Distribution Width SD 50.5 fl (35.1-43.9); Red Blood Count 4.05 M/mm3 (4.2-5.4); White Blood Count 14.3 K/mm3 (4.4-11.0)
[2021-12-29 16:11] LABS: Erythrocyte Sedimentation Rate 54 mm/hr (0-30)
[2021-12-29 16:13] LABS: Differential Indicated SCAN CRITERIA MET
[2021-12-29 16:24] LABS: ALB/GLOB Ratio 0.6 RATIO (0.9-2.4); AST(SGOT) 21 U/L (15-37); Alanine Aminotransfer ALT/SGPT 15 U/L (13-56); Albumin, Serum 2.3 g/dL (3.2-5.0); Alkaline Phosphatase 114 U/L (45-117); Anion Gap 10 (5-15); BUN 2 mg/dL (7-18); BUN/Creat Ratio 3.8 RATIO (10-20); Calcium,Total 8.8 mg/dL (8.5-10.1); Chloride 96 mmol/L (98-107); Cholesterol 138 mg/dL (200); Creatinine, Serum 0.53 mg/dL (0.55-1.02); EST Glomerular Filtration Rate 120 mL/min (>60); Est Glom Filt Rate - Afr Amer 145 mL/min (>60); Globulin 3.7 g/dL (2.2-4.2); Glucose 66 mg/dL (74-106); High Density Lipoprotein 63 mg/dL; Potassium 2.8 mmol/L (3.5-5.1); Sodium Level 137 mmol/L (136-145); Thyroid Stim Hormone (TSH) 3.13 uIU/mL (0.358-3.74); Triglycerides 91 mg/dL; Very Low Density Lipoprotein 18 mg/dL (5-40)
[2021-12-29 16:27] LABS: Color, Urine Yellow (Yellow); Glucose, Dipstick Normal (Normal); Ketone-Dipstick 50 mg/dl (Negative); Leukocyte Esterase-Dipstick 100 /ul (Negative); Nitrite-Dipstick Negative (Negative); Occult Blood-Urine Negative /ul (Negative); Protein-Dipstick Negative (Negative); Urine Bilirubin Dipstick Negative (Negative); Urine Clarity Clear (Clear); Urine Urobilinogen Normal (Normal)
[2021-12-29 16:32] LABS: Anisocytosis RARE; Ovalocyte RARE; Platelet Estimate SLT INC (ADEQ); Red Cell Morphology N CHROM NORMAL (NORM C&C)
[2021-12-29 16:44] LABS: Vitamin D,25 Hydroxy 67.7 ng/mL
[2021-12-30 15:19] LABS: Pathologist Review Reviewed
== END ==
LOC: HH 12-29 15:22
PROVIDERS: PCP Family Medicine Geriatric Medicine; Visit Provider Family Medicine Geriatric Medicine
DX: I10 Essential (primary) hypertension (principal); I48.0 Paroxysmal atrial fibrillation; Z79.899 Other long term (current) drug therapy; E55.9 Vitamin D deficiency, unspecified
CPT/HCPCS: 80053; 80061; 81002; 82306; 84443; 85025; 85652